=== PATIENT | female | born 1960 | race Caucasian/White ===

== ENCOUNTER → 2017-08-12 | Outpatient (CLI) | payer BC ==
--- NOTE | 2017-08-13 13:25 | MM ---
Reason for exam: screening (asymptomatic). Last mammogram was performed 1 year and 4 months ago. History: Patient is postmenopausal and had first child at age 32. Benign MG stereo VAD BX RT of the right breast, April 16, 2016. Benign US biopsy breast VAD RT of the right breast, April 16, 2016. Cyst aspiration of the right breast, 2002. Ultrasound-guided cyst aspiration of the right breast, October 21, 2002. Cyst aspiration of the left breast, 1999. Benign excisional biopsy of the right breast, 1989. Physical Findings: A clinical breast exam by your physician is recommended on an annual basis and results should be correlated with mammographic findings. MG Screening Mammo w CAD Bilateral CC and MLO view(s) were taken. Prior study comparison: April 05, 2016, right breast MG work up mamm w CAD RT. April 02, 2016, bilateral MG screening mammo w CAD. Previous mammotome biopsy in the right breast x 2. There is chronic nodularity bilaterally. No significant changes when compared with prior studies. ASSESSMENT: Benign, BI-RAD 2 RECOMMENDATION: Routine screening mammogram of both breasts in 1 year.
== END | disposition home or self-care (01) ==
LOC: RADMAMWWP 08:46
PROVIDERS: ATTEND Obstetrics & Gynecology
DX: Z12.31 Encounter for screening mammogram for malignant neoplasm of breast (principal)

== ENCOUNTER → 2018-08-21 | Outpatient (CLI) | payer BC ==
--- NOTE | 2018-08-25 09:47 | MM ---
Reason for exam: screening (asymptomatic). Last mammogram was performed 1 year ago. History: Patient is postmenopausal and had first child at age 32. Benign MG stereo VAD BX RT of the right breast, April 16, 2016. Benign US biopsy breast VAD RT of the right breast, April 16, 2016. Cyst aspiration of the right breast, 2002. Ultrasound-guided cyst aspiration of the right breast, October 21, 2002. Cyst aspiration of the left breast, 1999. Benign excisional biopsy of the right breast, 1989. Physical Findings: A clinical breast exam by your physician is recommended on an annual basis and results should be correlated with mammographic findings. MG Screening Mammo w CAD Bilateral CC and MLO view(s) were taken. XCCL view(s) were taken of the left breast. Prior study comparison: August 12, 2017, bilateral MG screening mammo w CAD. April 05, 2016, right breast MG work up mamm w CAD RT. There are scattered fibroglandular densities. Finding: There are typically benign course calcifications in the left breast. Previous mammotome biopsy in the right breast. No significant changes in finding since August 12, 2017 and April 05, 2016. ASSESSMENT: Benign, BI-RAD 2 RECOMMENDATION: Routine screening mammogram of both breasts in 1 year.
== END | disposition home or self-care (01) ==
LOC: RADMAMWWP 09:33
PROVIDERS: ATTEND Obstetrics & Gynecology
DX: Z12.31 Encounter for screening mammogram for malignant neoplasm of breast (principal)
CPT/HCPCS: 77067

== ENCOUNTER → 2018-11-10 | Outpatient (CLI) | payer BC ==
--- NOTE | 2018-11-10 22:54 | MR ---
EXAMINATION TYPE: MR knee LT wo con DATE OF EXAM: 11/10/2018 COMPARISON: Outside left knee x-ray October 28, 2018 HISTORY: Pain in left knee per order. In her knee pain and swelling for 2 months TECHNIQUE: Multiplanar, multisequence images of the knee is performed without IV contrast. FINDINGS: MEDIAL MENISCUS: Oblique signal posterior horn of medial meniscus appears to extend to articular surf rosangela. Globular increased signal anterior horn is present that does not distinctly extend to articular surface. LATERAL MENISCUS: Anterior and posterior horns are intact without tear. CRUCIATE LIGAMENTS: The anterior and posterior cruciate ligaments are intact and unremarkable. COLLATERAL LIGAMENTS: The medial collateral ligament and lateral collateral ligament complex are inta ct and unremarkable. EXTENSOR MECHANISM: Visualized quadriceps and patellar tendons are intact. EFFUSION: There is small suprapatellar joint effusion. POPLITEAL CYST: No popliteal/pham cyst. TRICOMPARTMENT SPACES: Mild to moderate narrowing patellofemoral and medial tibiofemoral compartment is identified. Mild to moderate tricompartment spurring is seen. There is mild narrowing lateral tibi ofemoral compartment. CARTILAGE: Chondromalacia patella with thinning of articular cartilage along posterior patellar pole is present. There is more prominent cartilaginous loss medial tibiofemoral compartment. BONE MARROW SIGNAL: Small focus of T2 hyperintensity near cartilaginous loss posterior patellar colle ction image 14 is appreciated. OTHER: There is superficial infrapatellar fluid. IMPRESSION: 1. Oblique full-thickness tear posterior horn medial meniscus. 2. Fairly moderate tricompartment degenerative changes most prominent patellofemoral and medial tibio femoral compartments as detailed above. 3. Small suprapatellar joint effusion.
== END | disposition home or self-care (01) ==
LOC: RADMRIMAIN 20:56
PROVIDERS: ATTEND Orthopaedic Surgery
DX: S83.242A Other tear of medial meniscus, current injury, left knee, initial encounter (principal); M17.12 Unilateral primary osteoarthritis, left knee

== ENCOUNTER → 2018-12-04 | Outpatient (CLI) | payer BC ==
[2018-12-04 12:48] LABS: Basophils % (A) 0 %; Eosinophils # (A) 0.2 k/uL (0-0.7); Eosinophils % (A) 3 %; HCT 41.5 % (34.0-46.0); HGB 14.7 gm/dL (11.4-16.0); Lymphocytes # (A) 1.4 k/uL (1.0-4.8); Lymphocytes % (A) 27 %; MCH 31.4 pg (25.0-35.0); MCHC 35.4 g/dL (31.0-37.0); MCV 88.7 fL (80.0-100.0); Mean Platelet Volume 7.6; Monocytes # (A) 0.4 k/uL (0-1.0); Monocytes % (A) 7 %; Neutrophils # (A) 3.1 k/uL (1.3-7.7); Neutrophils % (A) 61 %; Platelet Count 213 k/uL (150-450); RBC 4.68 m/uL (3.80-5.40); RDW 13.4 % (11.5-15.5); WBC 5.2 k/uL (3.8-10.6)
[2018-12-04 13:01] LABS: Potassium 4.6 mmol/L (3.5-5.1)
== END ==
LOC: LABPAT 11:31
PROVIDERS: ATTEND Orthopaedic Surgery
DX: Z01.818 Encounter for other preprocedural examination (principal); Z01.812 Encounter for preprocedural laboratory examination; M23.92 Unspecified internal derangement of left knee
CPT/HCPCS: 36415; 80051; 85025; 93005

== ENCOUNTER 2018-12-18 13:17 | Day surgery (SDC) | payer BC ==
[2018-12-17 11:44] VITALS: BMI 35.2
--- NOTE | 2018-12-17 17:52 | HP ---
HISTORY AND PHYSICAL DATE OF SURGERY: 12/18/2018 Domi Perrin is a 58-year-old patient seen with progressive left knee pain. Treatment options were discussed with her. She elected to proceed with left knee arthroscopy. Consent regarding the procedure was obtained. PAST MEDICAL HISTORY: Noncontributory. PAST SURGICAL HISTORY: Breast biopsy. DAILY MEDICATIONS: Vitamins. ALLERGIES: NONE REPORTED. SOCIAL HISTORY: She denies tobacco use. PHYSICAL EVALUATION OF THE LEFT KNEE: Range of motion is 0 to 120 degrees. There is tenderness along the medial joint line. Positive medial Ce's. Ligaments are stable. Hip rotation without pain. Distal neurovascular exam is intact. RADIOGRAPHS: Radiographs of the left knee revealed mild medial, mild lateral, and moderate patellofemoral compartment osteoarthritis. A left knee MRI revealed a medial meniscal tear and osteoarthritic changes. IMPRESSION: Internal derangement of the left knee with medial meniscal tear. PLAN: Left knee arthroscopy with partial meniscectomy and debridement. MMODL / IJN: [id number] /
[~2018-12-18 13:17] MED LIST: DEXAMETHASONE SOD PHOSPHATE 10 MG/ML 1 ML VIAL IV ONE; HYDROmorphone 0.5 MG/0.5 ML SYRINGE IVP PRN; LACTATED RINGERS 1,000 ML IV SCH; LIDOCAINE 1% 20 ML VIAL (10MG/ML) FOR IV START INTRADERMA PRN; MIDAZOLAM 2 MG/2 ML VIAL IV PRN; ONDANSETRON 4 MG/2 ML VIAL IVP ONE; SCOPOLAMINE 1.5MG/72HR PATCH TRANSDERM ONE; ceFAZolin IN SWFI 2 GM/20 ML SYRINGE IVP ONE
[2018-12-18] MEDS ORDERED: PROPOFOL 10 MG/ML 20 ML VIAL IV ONE (16:22)
[2018-12-18] MEDS ORDERED: LIDOCAINE 1% INJ 10MG/ML (20 ML MDV) ONE (16:22)
[2018-12-18] MEDS ORDERED: fentaNYL (PF) 50 MCG/ML 2 ML AMP ONE (16:22)
[2018-12-18] MEDS ORDERED: BUPIVACAIN-EPI 0.25%-1:200,000 30 ML VIAL SQ ONE (16:46)
[2018-12-18 17:10] VITALS: TEMP 97.7
--- NOTE | 2018-12-18 17:11 | P.OP ---
Date of Procedure: 12/18/18 Preoperative Diagnosis: Internal derangement left knee Postoperative Diagnosis: 1. Tear medial meniscus left knee 2. Grade 2 chondromalacia medial femoral condyle left knee 3. Reactive synovitis medial, lateral and suprapatellar compartments left knee Procedure(s) Performed: 1. Arthroscopic partial medial meniscectomy left knee 2. Arthroscopic chondroplasty medial femoral condyle left knee 3. Arthroscopic partial synovectomy medial, lateral and suprapatellar compartments left knee Anesthesia: GETA, local Surgeon: Benjamin Barbosa Estimated Blood Loss (ml): 3 Pathology: none sent Condition: stable Disposition: PACU Indications for Procedure: 58-year-old patient seen with progressive left knee pain. After discussing treatment options, she elected to proceed with arthroscopy. Operative Findings: See description of procedure Description of Procedure: Patient was taken to the operative suite. Patient underwent a general anesthetic by the department of anesthesia. Patient was given preoperative antibiotics. The left lower extremity was placed in a well-padded arthroscopic leg tinoco. The left leg was prepped and draped in the normal sterile orthopedic fashion. A lateral parapatellar and suprapatellar incision was made. Trochars were inserted. Arthroscopy was initiated. Suprapatellar pouch revealed diffuse thick reactive synovitis. The patellofemoral joint appeared to articulate congruently. There was grade 1 chondromalacia with no osteochondral tears present. The scope was guided into the medial gutter. No loose bodies or plica were identified. The scope was then guided into the medial compartment. A medial parapatellar incision was made. Trocar inserted followed by probe. There was a complex tear involving the mid body and posterior horn of the medial meniscus. There were grade 2 chondromalacia changes of the medial femoral condyle with osteochondral tears present. There was reactive synovitis anteriorly. I performed a partial medial meniscectomy down to stable tissue. I performed a chondroplasty of the medial femoral condyle down to stable tissue. I performed a partial synovectomy decompressing the reactive synovitis. The residual meniscus was stable. The residual osteochondral surface was stable. There was good decompression of the synovitis. Scope and probe were then guided into the intercondylar notch. Cruciates were identified, probed and found to be stable. The scope and probe were then guided into lateral compartment. Lateral meniscus reveals some mild fraying of the mid body. There was no significant chondromalacia. There was reactive synovitis anteriorly. With a motorized shaver and debrided that mild superficial fraying of the lateral meniscus. I now performed a partial synovectomy of lateral compartment decompressing the reactive synovitis. The scope was in guided back into the suprapatellar compartment. I introduced a motorized shaver into the super patellar compartment. I debrided some piecemeal fragments of meniscus I encountered. I performed a partial synovectomy decompressing the synovitis. The shaver was removed. I took one more look on the entire knee, no residual debris. Instruments were now removed from the joint. The joint was infiltrated with .25% Marcaine. Steri-Strips were applied to the portal sites. Sterile dressings were applied. The patient was placed into a BECK hose. No tourniquet was utilized. The patient was awakened, transferred to a bed and taken to recovery stable satisfactory condition.
[2018-12-18] MEDS ORDERED: KETOROLAC 30 MG/ML 1 ML VIAL IVP ONE (17:41)
[2018-12-18] MEDS ORDERED: HYDROcodone/APAP 5-325MG 1 EACH TAB PO ONE (18:24)
[2018-12-18 18:50] VITALS: PULSE 104; RESP 18
[2018-12-18 19:09] VITALS: BP 153/89
[2018-12-18] MEDS ORDERED: LACTATED RINGERS 1,000 ML IV ONE (19:40)
== END 2018-12-18 19:45 | disposition home or self-care (01) ==
LOC: OR 13:17
PROVIDERS: ATTEND Orthopaedic Surgery
DX: S83.242A Other tear of medial meniscus, current injury, left knee, initial encounter (principal); X58.XXXA Exposure to other specified factors, initial encounter; M94.262 Chondromalacia, left knee; M65.862 Other synovitis and tenosynovitis, left lower leg; F41.9 Anxiety disorder, unspecified; Z79.1 Long term (current) use of non-steroidal anti-inflammatories (NSAID); Z79.899 Other long term (current) drug therapy
CPT/HCPCS: 29881; J1100; J2405; J2001; J3010; J1885; J2704; J1170; J0690

== ENCOUNTER → 2019-04-01 | Outpatient (CLI) | payer BC ==
--- NOTE | 2019-04-01 15:10 | MR ---
EXAMINATION TYPE: MR knee RT wo con DATE OF EXAM: 04/01/2019 COMPARISON: Outside radiographs 03/25/2019 HISTORY: 59-year-old female with right KNEE PAIN TECHNIQUE: Multiplanar, multisequence imaging of the right knee is performed without IV contrast. FINDINGS: ACL, PCL, MCL, and LCL complex appear intact. There is some fluid seen along the popliteus tendon she ath. Lateral meniscus is intact. Overall lateral compartment articular cartilage volume is maintained. Mar ginal spurring is present in the lateral compartment. There is a tear extending throughout the posterior horn and body to the junction with the anterior ho rn of the medial meniscus. Mild extrusion of the medial meniscal body. There is moderate to severe di ffuse cartilage loss along the mid and anterior portion of the medial compartment with marginal spurr ing. Marginal spurring in the patellofemoral compartment. There is moderate cartilage thinning along the m edial patellar facet but with overall preserved trochlear articular cartilage volume. Extensor mechanism is intact. Trace effusion within the deep infrapatellar bursa. A [id number] knee joint effusion is present. No significant Rodarte's cyst. Normal popliteal artery anatomy and muscle bulk. No suspicious bone marrow placement. IMPRESSION: 1. Torn posterior horn and body of the medial meniscus with tear extending to the junction with the a nterior horn. 2. Moderate to severe medial compartment osteoarthrosis with cartilage loss along the mid and anterio r aspect of the joint. 3. Cartilage thinning along the medial patellar facet but maintained articular cartilage elsewhere in the patellofemoral compartment. 4. [id number] knee joint effusion.
== END ==
LOC: RADMRIMAIN 12:04
PROVIDERS: ATTEND Orthopaedic Surgery
DX: M25.561 Pain in right knee (principal)

== ENCOUNTER → 2019-04-07 | Outpatient (CLI) | payer BC ==
[2019-04-07 15:42] LABS: Potassium 4.2 mmol/L (3.5-5.1)
[2019-04-07 15:43] LABS: Basophils % (A) 1 %; Eosinophils # (A) 0.1 k/uL (0-0.7); Eosinophils % (A) 2 %; HCT 42.2 % (34.0-46.0); HGB 14.2 gm/dL (11.4-16.0); Lymphocytes # (A) 1.5 k/uL (1.0-4.8); Lymphocytes % (A) 27 %; MCH 29.9 pg (25.0-35.0); MCHC 33.6 g/dL (31.0-37.0); Monocytes # (A) 0.4 k/uL (0-1.0); Monocytes % (A) 7 %; Neutrophils # (A) 3.5 k/uL (1.3-7.7); Neutrophils % (A) 61 %; Platelet Count 246 k/uL (150-450); RBC 4.74 m/uL (3.80-5.40); RDW 13.9 % (11.5-15.5); WBC 5.7 k/uL (3.8-10.6)
== END | disposition home or self-care (01) ==
LOC: LABPAT 14:53
PROVIDERS: ATTEND Orthopaedic Surgery
DX: Z01.812 Encounter for preprocedural laboratory examination (principal); M23.91 Unspecified internal derangement of right knee
CPT/HCPCS: 36415; 80051; 85025

== ENCOUNTER 2019-04-22 10:04 | Day surgery (SDC) | payer BC ==
[2019-04-16 12:31] VITALS: BMI 34.3
--- NOTE | 2019-04-21 14:56 | HP ---
HISTORY AND PHYSICAL DATE OF SURGERY: 04/22/2019. Domi Perrin is a 59-year-old patient seen with progressive right knee pain. We discussed treatment options. She elected to proceed with arthroscopy. Consent was obtained. PAST MEDICAL HISTORY: Noncontributory. PAST SURGICAL HISTORY: Breast biopsy, left knee arthroscopy. MEDICATIONS: 1. Mobic. 2. Multivitamin. 3. Nystatin. ALLERGIES: None. SOCIAL HISTORY: She denies current tobacco use. PHYSICAL EVALUATION OF THE RIGHT KNEE: Range of motion is 0 to 120 degrees. Mild effusion. Tenderness medial joint line. Positive medial Ce's. Ligaments stable. Hip rotation without pain. Distal neurovascular exam intact. RIGHT KNEE RADIOGRAPHS: Revealed moderate medial and moderate patellofemoral compartment osteoarthritis. MRI of the right knee revealed a medial meniscal tear and osteoarthritic changes. IMPRESSION: Internal derangement, right knee with medial meniscal tear. PLAN: Right knee arthroscopy with partial meniscectomy and debridement. MMODL / IJN: [id number] /
[~2019-04-22 10:04] MED LIST changes: -HYDROmorphone 0.5 MG/0.5 ML SYRINGE IVP PRN; +KETOROLAC 30 MG/ML 1 ML VIAL IVP SCH; -LACTATED RINGERS 1,000 ML IV SCH; +METOCLOPRAMIDE 5 MG/ML 2 ML VIAL IVP PRN; -MIDAZOLAM 2 MG/2 ML VIAL IV PRN; -ONDANSETRON 4 MG/2 ML VIAL IVP ONE; +ONDANSETRON 4 MG/2 ML VIAL IVP PRN
[2019-04-22] MEDS: LACTATED RINGERS 1,000 ML IV SCH ×2 (10:43→11:37)
[2019-04-22] MEDS ORDERED: PROPOFOL 10 MG/ML 20 ML VIAL IV ONE (11:35)
[2019-04-22] MEDS ORDERED: LIDOCAINE 1% INJ 10MG/ML (20 ML MDV) ONE (11:35)
[2019-04-22] MEDS ORDERED: fentaNYL (PF) 50 MCG/ML 2 ML AMP ONE (11:35)
[2019-04-22] MEDS ORDERED: MIDAZOLAM 2 MG/2 ML VIAL ONE (11:35)
[2019-04-22] MEDS ORDERED: BUPIVACAINE (PF) 0.25% 30 ML VIAL SQ ONE (11:57)
--- NOTE | 2019-04-22 12:30 | P.OP ---
Date of Procedure: 04/22/19 Preoperative Diagnosis: Internal derangement right knee Postoperative Diagnosis: 1. Tear medial meniscus right knee 2. Grade 3/4 chondromalacia medial femoral condyle right knee 3. Grade 2 chondromalacia lateral femoral condyle right knee 4. Grade 2 chondromalacia patella right knee 5. Reactive synovitis medial, lateral and suprapatellar compartments right knee Procedure(s) Performed: 1. Arthroscopic partial medial meniscectomy right knee 2. Arthroscopic chondroplasty medial femoral condyle right knee 3. Arthroscopic chondroplasty lateral femoral condyle right knee 4. Arthroscopic chondroplasty patella right knee 5. Arthroscopic partial synovectomy medial, lateral and suprapatellar compartments right knee Anesthesia: GETA, local Surgeon: Benjamin Barbosa Estimated Blood Loss (ml): 3 Pathology: none sent Condition: stable Disposition: PACU Indications for Procedure: 59-year-old patient seen with progressive right knee pain. After having treatment options discussed, she elected to proceed with arthroscopy. Operative Findings: See description of procedure Description of Procedure: Patient was taken to the operative suite. Patient underwent a general anesthetic by the department of anesthesia. Patient was given preoperative antibiotics. The right lower extremity was placed in a well-padded arthroscopic leg tinoco. The right leg was prepped and draped in the normal sterile orthopedic fashion. A lateral parapatellar and suprapatellar incision was made. Trochars were inserted. Arthroscopy was initiated. Suprapatellar pouch revealed diffuse thick reactive synovitis. The patellofemoral joint appeared to articulate congruently. There as grade 2 chondromalacia of the patella with some small osteochondral tears present.. The scope was guided into the medial gutter. Bodies or plica were identified. The scope was then guided into the medial compartment. A medial parapatellar incision was made. Trocar inserted followed by probe. There was a complex tear involving the mid body and posterior horn of the medial meniscus. There were grade 3/4 chondral moist changes of the medial femoral condyle with some small osteochondral flap tears. There was thick reactive synovitis anteriorly. I performed a partial medial meniscectomy down to stable tissue. I performed a chondroplasty of the medial femoral condyle down to stable tissue. I performed a partial synovectomy. There was good decompression of synovitis. The residual meniscus was stable. The residual osteochondral surface was stable. There was some exposed bone noted both on the femoral and tibial side. Scope and probe were then guided into the intercondylar notch. Cruciates were identified, probed and found to be able. The scope and probe were then guided into lateral compartment. To meniscus was probed and found to be stable. There was an area of grade 2 chondromalacia central weightbearing surface lateral femoral condyle with osteochondral flap tears. There was thick reactive synovitis anteriorly. I performed a chondroplasty of the lateral femoral condyle down to stable tissue. I performed a partial synovectomy decompressing thick reactive synovitis. The residual osteochondral surface was stable. There was good decompression of the synovitis. The scope was in guided back into the suprapatellar compartment. I introduced a motorized shaver into the super patellar compartment. I debrided piecemeal fragments of meniscus I encountered. I performed a chondroplasty of the patella down to stable tissue. I performed a partial synovectomy decompressing thick reactive synovitis and super patellar compartment. Shaver was removed. I took one more look around the entire knee, no residual debris. Instruments were now removed from the joint. The joint was infiltrated with .25% Marcaine. Steri-Strips were applied to the portal sites. Sterile dressings were applied. The patient was placed into a BECK hose. No tourniquet was utilized. The patient was awakened, transferred to a bed and taken to recovery stable satisfactory condition.
[2019-04-22 12:37] VITALS: TEMP 97
[2019-04-22] MEDS ORDERED: LACTATED RINGERS 1,000 ML IV ONE ×2 (12:55)
[2019-04-22] MEDS: HYDROmorphone 0.5 MG/0.5 ML SYRINGE IVP PRN ×2 (13:02→13:11)
[2019-04-22 14:00] VITALS: RESP 16
[2019-04-22 14:13] VITALS: BP 138/80; PULSE 70
== END 2019-04-22 14:44 | disposition home or self-care (01) ==
LOC: OR 10:04
PROVIDERS: ATTEND Orthopaedic Surgery
DX: S83.241A Other tear of medial meniscus, current injury, right knee, initial encounter (principal); M65.861 Other synovitis and tenosynovitis, right lower leg; M17.11 Unilateral primary osteoarthritis, right knee; M22.41 Chondromalacia patellae, right knee; X58.XXXA Exposure to other specified factors, initial encounter; F39 Unspecified mood [affective] disorder; Z79.899 Other long term (current) drug therapy; Z79.1 Long term (current) use of non-steroidal anti-inflammatories (NSAID)
CPT/HCPCS: 29881; 29876; J2250; J1100; J2405; J2001; J3010; J1885; J2704; J1170; J0690

== ENCOUNTER → 2019-12-07 | Outpatient (CLI) | payer BC ==
--- NOTE | 2019-12-07 09:46 | BD ---
EXAMINATION TYPE: Axial Bone Density DATE OF EXAM: 12/07/2019 COMPARISON: 04/12/2016 CLINICAL HISTORY: M 89.9 Height: 63.7 IN Weight: 214 LBS RISK FACTORS HISTORY OF: Family History of Osteoporosis: YES MOTHER Active: YES Postmenopausal woman: AGE 47 MEDICATIONS: Additional Medications: CALCIUM, MULTI VIT, PAXIL, GLUCOSAMINE CHONDROITIN, VIT C, MELOXICAM, EXAM MEASUREMENTS: Bone mineral densitometry was performed using the [employer] System. Bone mineral density as measured about the Lumbar spine is: ----- L1-L4(G/cm2): 0.987 T Score Values are as follows: ----- L2: -2.7 ----- L3: -1.5 ----- L4: -1.3 ----- L1-L4: -1.6 Bone mineral density has: Decreased -2.3% since study of: 04/12/2016 Bone mineral density about the R hip (g/cm2): 0.892 Bone mineral density about the L hip (g/cm2): 0.875 T Score values are as follows: -----R Neck: -1.1 -----L Neck: -1.2 -----R Total: 0.2 -----L Total: 0.0 Bone mineral density has: Decreased -3.3% since study of: 04/12/2016 IMPRESSION: Osteopenia (T Score between -2.5 and -1). There is slightly increased risk of fracture and the patient may be considered for treatment. Re-Screen 2-5 years. NOTE: T-SCORE=SD OF THE YOUNG ADULT MEAN.
--- NOTE | 2019-12-08 11:16 | MM ---
Reason for exam: screening (asymptomatic). Last mammogram was performed 1 year and 4 months ago. History: Patient is postmenopausal and had first child at age 32. Benign MG stereo VAD BX RT of the right breast, April 16, 2016. Benign US biopsy breast VAD RT of the right breast, April 16, 2016. Cyst aspiration of the right breast, 2002. Ultrasound-guided cyst aspiration of the right breast, October 21, 2002. Cyst aspiration of the left breast, 1999. Benign excisional biopsy of the right breast, 1989. Physical Findings: A clinical breast exam by your physician is recommended on an annual basis and results should be correlated with mammographic findings. MG Screening Mammo w CAD Bilateral CC and MLO view(s) were taken. Prior study comparison: August 21, 2018, bilateral MG screening mammo w CAD. August 12, 2017, bilateral MG screening mammo w CAD. There are scattered fibroglandular densities. Focal asymmetry upper outer left breast middle third position. This finding is changed when compared with previous exams. ASSESSMENT: Incomplete: need additional imaging evaluation, BI-RAD 0 RECOMMENDATION: Special view mammogram of the left breast. If lesion persists on supplemental views, image directed ultrasound is recommended. [facility] will attempt to contact patient to return for supplemental views and ultrasound if indicated.
== END | disposition home or self-care (01) ==
LOC: RADMAMWWP 08:21
PROVIDERS: ATTEND Obstetrics & Gynecology
DX: Z12.31 Encounter for screening mammogram for malignant neoplasm of breast (principal); M85.88 Other specified disorders of bone density and structure, other site
CPT/HCPCS: 77067; 77080

== ENCOUNTER → 2019-12-18 | Outpatient (CLI) | payer BC ==
--- NOTE | 2019-12-18 10:59 | MM ---
Reason for exam: additional evaluation requested from abnormal screening. Last mammogram was performed less than 1 month ago. History: Patient is postmenopausal and had first child at age 32. Benign MG stereo VAD BX RT of the right breast, April 16, 2016. Benign US biopsy breast VAD RT of the right breast, April 16, 2016. Cyst aspiration of the right breast, 2002. Ultrasound-guided cyst aspiration of the right breast, October 21, 2002. Cyst aspiration of the left breast, 1999. Benign excisional biopsy of the right breast, 1989. Physical Findings: Nurse did not find any significant physical abnormalities on exam. MG Work Up Mamm w CAD LT Spot compression CC, spot compression MLO, and LM view(s) were taken of the left breast. Prior study comparison: December 07, 2019, bilateral MG screening mammo w CAD. August 21, 2018, bilateral MG screening mammo w CAD. There are scattered fibroglandular densities. No distinct new lesion at area of concern, stable. These results were verbally communicated with the patient and result sheet given to the patient on 12/18/19. ASSESSMENT: Benign, BI-RAD 2 RECOMMENDATION: Return to routine screening mammogram schedule for both breasts.
== END | disposition home or self-care (01) ==
LOC: RADMAMWWP 10:12
PROVIDERS: ATTEND Obstetrics & Gynecology
DX: R92.8 Other abnormal and inconclusive findings on diagnostic imaging of breast (principal)
CPT/HCPCS: 77065

== ENCOUNTER → 2021-06-06 | Outpatient (CLI) | payer BC ==
--- NOTE | 2021-06-07 07:28 | XR ---
EXAMINATION TYPE: XR chest 2V DATE OF EXAM: 06/06/2021 COMPARISON: NONE HISTORY: Cough TECHNIQUE: Frontal and lateral views of the chest are obtained. FINDINGS: There is no focal air space opacity, pleural effusion, or pneumothorax seen. The cardiac silhouette size is within normal limits. The osseous structures are intact. IMPRESSION: No acute cardiopulmonary process.
== END | disposition home or self-care (01) ==
LOC: RADXRMAIN 16:02
PROVIDERS: ATTEND Family Medicine
DX: R05 Cough (principal)
CPT/HCPCS: 71046

== ENCOUNTER 2021-06-08 20:02 | Emergency (ER) | payer BC ==
[2021-06-08 20:14] VITALS: TEMP 99.3
[2021-06-08] MEDS ORDERED: SODIUM CHLORIDE 0.9% 1,000 ML IV STA (20:41)
[2021-06-08 21:28] LABS: INR 1.1 (<1.2); Partial Thromboplastin Time 20.4 sec (22.0-30.0); Prothrombin Time 11.7 sec (9.0-12.0)
[2021-06-08 21:31] LABS: Albumin 3.9 g/dL (3.5-5.0); Calcium 8.7 mg/dL (8.4-10.2); Total Bilirubin 0.3 mg/dL (0.2-1.3); Total Protein 7.8 g/dL (6.3-8.2)
[2021-06-08 21:42] LABS: Anisocytosis Slight; HCT 21.1 % (34.0-46.0); HGB 7.3 gm/dL (11.4-16.0); MCH 36.8 pg (25.0-35.0); MCHC 34.8 g/dL (31.0-37.0); MCV 105.7 fL (80.0-100.0); Macrocytosis Moderate; Mean Platelet Volume 11.2; RBC 1.99 m/uL (3.80-5.40); RDW 17.5 % (11.5-15.5); WBC 14.7 k/uL (3.8-10.6)
[2021-06-08 22:15] LABS: Lymphocytes # (M) 3.53 k/uL (1.0-4.8); Monocytes # (M) 3.23 k/uL (0-1.0); Neutrophils # (M) 7.94 k/uL (1.3-7.7); Neutrophils % (M) 54 %; Nucleated Red Blood Cells 0 /100 WBC (0-0); Total Cells Counted 100
--- NOTE | 2021-06-08 22:15 | ED ---
General Adult HPI - General Chief complaint: Shortness of Breath Stated complaint: Abnormal labs Time Seen by Provider: 06/08/21 20:27 Source: patient, RN notes reviewed Mode of arrival: ambulatory Limitations: no limitations - History of Present Illness Initial comments: Patient is a 61-year-old female that presents to emergency department complaining of fatigue and not feeling well for the last several weeks. She notes that she recently got lumbar done through her PCP and was told to come here for evaluation. Her PCP states that her hemoglobin was low and that they wanted her to get a full workup to test for any bleeding or internal issues. Rito flynn was a well-appearing 61-year-old female who states she was in no pain or discomfort while sitting up during the exam interview. She denied any hematochezia melena or hematemesis history of abdominal issues or family history of abdominal issues. She notes that she is still eating and drinking well with no issue. She denied any chest pain shortness of breath headache nausea vomiting diarrhea constipation fever fatigue chills. - Related Data Home Medications Medication Instructions Recorded Confirmed Ascorbic Acid [Vitamin C] 500 mg PO DAILY 12/17/18 06/08/21 PARoxetine [Paxil] 10 mg PO DAILY 12/17/18 06/08/21 Docusate [Colace] 100 mg PO DAILY PRN 06/08/21 06/08/21 Doxycycline Hyclate 100 mg PO BID 06/08/21 06/08/21 Fluticasone Nasal [place] [Flonase 1 spray EA NOSTRIL DAILY 06/08/21 06/08/21 Nasal [place]] L.acidoph,Paracasei, B.lactis 1 cap PO DAILY 06/08/21 06/08/21 [Probiotic] methylPREDNISolone [Medrol Dose See Taper PO DIRECTED 06/08/21 06/08/21 Pack] Allergies Allergy/AdvReac Type Severity Reaction Status Date / Time No Known Allergies Allergy Verified 06/08/21 21:28 Review of Systems ROS Statement: Those systems with pertinent positive or pertinent negative responses have been documented in the HPI. ROS Other: All systems not noted in ROS Statement are negative. Past Medical History Past Medical History: Osteoarthritis (OA) History of Any Multi-Drug Resistant Organisms: None Reported Past Surgical History: Breast Surgery, Orthopedic Surgery Additional Past Surgical History / Comment(s): breast biopsy, arthroscopy left and right knee Past Anesthesia/Blood Transfusion Reactions: No Reported Reaction Past Psychological History: Anxiety Smoking Status: Never smoker Past Alcohol Use History: None Reported Past Drug Use History: None Reported - Past Family History Father Family Medical History: Cancer General Exam Limitations: no limitations General appearance: alert, in no apparent distress Head exam: Present: atraumatic, normocephalic, normal inspection Eye exam: Present: normal appearance, PERRL, EOMI. Absent: scleral icterus, conjunctival injection, periorbital swelling Neck exam: Present: normal inspection. Absent: lymphadenopathy Respiratory exam: Present: normal lung sounds bilaterally. Absent: respiratory distress, wheezes, rales, rhonchi, stridor Cardiovascular Exam: Present: regular rate, normal rhythm, normal heart sounds. Absent: systolic murmur, diastolic murmur, rubs, gallop, clicks GI/Abdominal exam: Present: soft, normal bowel sounds. Absent: distended, tenderness, guarding, rebound, rigid Extremities exam: Present: normal inspection, full ROM, normal capillary refill. Absent: tenderness, pedal edema, joint swelling, calf tenderness Neurological exam: Present: alert, oriented X3 Psychiatric exam: Present: normal affect, normal mood Skin exam: Present: warm, dry, intact, normal color. Absent: rash Course Vital Signs 06/08/21 06/08/21 06/08/21 20:10 20:37 23:19 Temperature 99.3 F Pulse Rate 56 L 110 H 104 H Respiratory 18 20 18 Rate Blood Pressure 137/73 138/87 134/70 O2 Sat by Pulse 96 98 94 L Oximetry EKG Findings - EKG Comments: EKG Findings:: Ventricular rate 113 bpm, CO interval 172 ms, QRS duration 70 ms, QTC 452 ms, PRT axes 46/26/47. Sinus tachycardia, otherwise normal ECG. Medical Decision Making - Medical Decision Making 61-year-old female sent in by primary care for abnormal labs. Labs, 1 L normal saline, CT of the abdomen and pelvis ordered. Labs: White blood cells 14.7, red blood cells 1.9 hemoglobin 7.3 hematocrit 21.1 lactic acid 2.2 lipase 332 rest of labs unremarkable. Computed tomography scan negative for any acute process. Case discussed with Dr. Salazar, patient discharge home with follow-up primary care and varnish maker helper. - Lab Data Result diagrams: 06/08/21 20:46 06/08/21 20:46 Lab Results 06/08/21 06/08/21 06/08/21 Range/Units 20:46 20:46 20:46 WBC 14.7 H (3.8-10.6) k/uL RBC 1.99 L (3.80-5.40) m/uL Hgb 7.3 L (11.4-16.0) gm/dL Hct 21.1 L (34.0-46.0) % MCV 105.7 H (80.0-100.0) fL MCH 36.8 H (25.0-35.0) pg MCHC 34.8 (31.0-37.0) g/dL RDW 17.5 H (11.5-15.5) % Plt Count 58 L (150-450) k/uL MPV 11.2 Neutrophils % (Manual) 54 % Lymphocytes % (Manual) 24 % Monocytes % (Manual) 22 % Neutrophils # (Manual) 7.94 H (1.3-7.7) k/uL Lymphocytes # (Manual) 3.53 (1.0-4.8) k/uL Monocytes # (Manual) 3.23 H (0-1.0) k/uL Nucleated RBCs 0 (0-0) /100 WBC Polychromasia Present Anisocytosis Slight Anisocytosis (manual) Present Macrocytosis Moderate PT 11.7 (9.0-12.0) sec INR 1.1 (<1.2) APTT 20.4 L (22.0-30.0) sec Sodium (137-145) mmol/L Potassium (3.5-5.1) mmol/L Chloride (98-107) mmol/L Carbon Dioxide (22-30) mmol/L Anion Gap mmol/L BUN (7-17) mg/dL Creatinine (0.52-1.04) mg/dL Est GFR (CKD-EPI)AfAm (>60 ml/min/1.73 sqM) Est GFR (CKD-EPI)NonAf (>60 ml/min/1.73 sqM) Glucose (74-99) mg/dL Lactic Ac Sepsis Rflx Plasma Lactic Acid Joel (0.7-2.0) mmol/L Calcium (8.4-10.2) mg/dL Total Bilirubin (0.2-1.3) mg/dL AST (14-36) U/L ALT (4-34) U/L Alkaline Phosphatase (38-126) U/L Troponin I (0.000-0.034) ng/mL Total Protein (6.3-8.2) g/dL Albumin (3.5-5.0) g/dL Amylase (30-110) U/L Lipase (23-300) U/L Urine Color Light Yellow Urine Appearance Clear (Clear) Urine pH 6.0 (5.0-8.0) Ur Specific [place] 1.004 (1.001-1.035) Urine Protein Negative (Negative) Urine Glucose (UA) Negative (Negative) Urine Ketones Negative (Negative) Urine Blood Negative (Negative) Urine Nitrite Negative (Negative) Urine Bilirubin Negative (Negative) Urine Urobilinogen <2.0 (<2.0) mg/dL Ur Leukocyte Esterase Negative (Negative) Blood Type Blood Type Confirm Blood Type Recheck Bld Type Recheck Status Antibody Screen Spec Expiration Date 06/08/21 06/08/21 06/08/21 Range/Units 20:46 20:46 20:46 WBC (3.8-10.6) k/uL RBC (3.80-5.40) m/uL Hgb (11.4-16.0) gm/dL Hct (34.0-46.0) % MCV (80.0-100.0) fL MCH (25.0-35.0) pg MCHC (31.0-37.0) g/dL RDW (11.5-15.5) % Plt Count (150-450) k/uL MPV Neutrophils % (Manual) % Lymphocytes % (Manual) % Monocytes % (Manual) % Neutrophils # (Manual) (1.3-7.7) k/uL Lymphocytes # (Manual) (1.0-4.8) k/uL Monocytes # (Manual) (0-1.0) k/uL Nucleated RBCs (0-0) /100 WBC Polychromasia Anisocytosis Anisocytosis (manual) Macrocytosis PT (9.0-12.0) sec INR (<1.2) APTT (22.0-30.0) sec Sodium 137 (137-145) mmol/L Potassium 4.0 (3.5-5.1) mmol/L Chloride 101 (98-107) mmol/L Carbon Dioxide 27 (22-30) mmol/L Anion Gap 9 mmol/L BUN 17 (7-17) mg/dL Creatinine 0.96 (0.52-1.04) mg/dL Est GFR (CKD-EPI)AfAm 74 (>60 ml/min/1.73 sqM) Est GFR (CKD-EPI)NonAf 65 (>60 ml/min/1.73 sqM) Glucose 181 H (74-99) mg/dL Lactic Ac Sepsis Rflx Plasma Lactic Acid Joel 2.2 H* (0.7-2.0) mmol/L Calcium 8.7 (8.4-10.2) mg/dL Total Bilirubin 0.3 (0.2-1.3) mg/dL AST 43 H (14-36) U/L ALT 24 (4-34) U/L Alkaline Phosphatase 69 (38-126) U/L Troponin I <0.012 (0.000-0.034) ng/mL Total Protein 7.8 (6.3-8.2) g/dL Albumin 3.9 (3.5-5.0) g/dL Amylase 59 (30-110) U/L Lipase 332 H (23-300) U/L Urine Color Urine Appearance (Clear) Urine pH (5.0-8.0) Ur Specific [place] (1.001-1.035) Urine Protein (Negative) Urine Glucose (UA) (Negative) Urine Ketones (Negative) Urine Blood (Negative) Urine Nitrite (Negative) Urine Bilirubin (Negative) Urine Urobilinogen (<2.0) mg/dL Ur Leukocyte Esterase (Negative) Blood Type Blood Type Confirm Blood Type Recheck Bld Type Recheck Status Antibody Screen Spec Expiration Date 06/08/21 06/08/21 06/08/21 Range/Units 20:46 21:40 22:00 WBC (3.8-10.6) k/uL RBC (3.80-5.40) m/uL Hgb (11.4-16.0) gm/dL Hct (34.0-46.0) % MCV (80.0-100.0) fL MCH (25.0-35.0) pg MCHC (31.0-37.0) g/dL RDW (11.5-15.5) % Plt Count (150-450) k/uL MPV Neutrophils % (Manual) % Lymphocytes % (Manual) % Monocytes % (Manual) % Neutrophils # (Manual) (1.3-7.7) k/uL Lymphocytes # (Manual) (1.0-4.8) k/uL Monocytes # (Manual) (0-1.0) k/uL Nucleated RBCs (0-0) /100 WBC Polychromasia Anisocytosis Anisocytosis (manual) Macrocytosis PT (9.0-12.0) sec INR (<1.2) APTT (22.0-30.0) sec Sodium (137-145) mmol/L Potassium (3.5-5.1) mmol/L Chloride (98-107) mmol/L Carbon Dioxide (22-30) mmol/L Anion Gap mmol/L BUN (7-17) mg/dL Creatinine (0.52-1.04) mg/dL Est GFR (CKD-EPI)AfAm (>60 ml/min/1.73 sqM) Est GFR (CKD-EPI)NonAf (>60 ml/min/1.73 sqM) Glucose (74-99) mg/dL Lactic Ac Sepsis Rflx Y Plasma Lactic Acid Joel (0.7-2.0) mmol/L Calcium (8.4-10.2) mg/dL Total Bilirubin (0.2-1.3) mg/dL AST (14-36) U/L ALT (4-34) U/L Alkaline Phosphatase (38-126) U/L Troponin I (0.000-0.034) ng/mL Total Protein (6.3-8.2) g/dL Albumin (3.5-5.0) g/dL Amylase (30-110) U/L Lipase (23-300) U/L Urine Color Urine Appearance (Clear) Urine pH (5.0-8.0) Ur Specific [place] (1.001-1.035) Urine Protein (Negative) Urine Glucose (UA) (Negative) Urine Ketones (Negative) Urine Blood (Negative) Urine Nitrite (Negative) Urine Bilirubin (Negative) Urine Urobilinogen (<2.0) mg/dL Ur Leukocyte Esterase (Negative) Blood Type AB Positive Blood Type Confirm AB Positive Blood Type Recheck No Previous Record Bld Type Recheck Status CABO Indicated Antibody Screen NEGATIVE Spec Expiration Date 06/11/2021 1206 - EKG Data -: EKG Interpreted by Me EKG shows normal: sinus rhythm Rate: normal EKG Comments: Ventricular rate 113 bpm, CO interval 172 ms, QRS duration 70 ms, QTC 452 ms, PRT axes 46/26/47. Sinus tachycardia, otherwise normal ECG. Disposition Clinical Impression: Low hemoglobin, Fatigue, Elevated lipase Disposition: HOME SELF-CARE Condition: Stable Instructions (If sedation given, give patient instructions): Fatigue (ED) Additional Instructions: Please return to the Emergency Department if symptoms worsen or any other c oncerns. Follow-up with primary care. Follow-up with varnish maker helper as soon as possible. Avoid any strenuous activity. Is patient prescribed a controlled substance at d/c from ED?: No Referrals: Kelly Ahuja MD [Primary Care Provider] - 1-2 days Emmanuel Noyola MD [STAFF PHYSICIAN] - 1-2 days Time of Disposition: 23:44
[2021-06-08 22:16] LABS: Anisocytosis (M) Present; Polychromasia Present
[2021-06-08 22:17] LABS: Platelet Count 58 k/uL (150-450)
[2021-06-08 22:25] LABS: Appearance,Urine Clear (Clear); Bilirubin,Urine Negative (Negative); Blood,Urine Negative (Negative); Color,Urine Light Yellow; Glucose,Urine (UA) Negative (Negative); Ketones,Urine Negative (Negative); Leukocyte Esterase,Urine Negative (Negative); Nitrite,Urine Negative (Negative); Protein,Urine Negative (Negative); Specific Gravity,Urine 1.004 (1.001-1.035); Urobilinogen,Urine <2.0 mg/dL (<2.0)
--- NOTE | 2021-06-08 22:57 | CT ---
EXAMINATION TYPE: CT abdomen pelvis w con DATE OF EXAM: 06/08/2021 COMPARISON: None HISTORY: Abnormal labs and fatigue. CT DLP: 1245.7 mGycm Automated exposure control for dose reduction was used. CONTRAST: Performed with IV Contrast, patient injected with 100ml mL of Isovue 300. Lung bases are clear of infiltrate. There is no pleural effusion. Heart size is normal. There is no p ericardial effusion. Liver is intact. The bile ducts are not dilated. Spleen measures 14 cm. Stomach is intact. There is n o pancreatic mass. Gallbladder appears normal. There is no adrenal mass. Kidneys show satisfactory contrast opacification. There is no hydronephrosi s. Delayed images show normal renal excretion. There is no retroperitoneal adenopathy. Appendix appea rs normal. Bladder distends smoothly. There is no inguinal hernia. There is no free fluid in the pelvis. There a re sigmoid diverticula. There is no diverticulitis. Lumbar vertebra have normal alignment. Posterior elements are intact. Bony pelvis is intact. The hip joints are intact. There is no mesenteric edema. There is no ascites or free air. There is no bowel obstruction. IMPRESSION: Negative CT scan abdomen and pelvis. Normal appendix.
[2021-06-08 23:22] VITALS: BP 134/70; PULSE 104; RESP 18
[2021-06-09 21:32] LABS: % Iron Saturation 86.54 (12.00-45.00)
[2021-06-09 22:14] LABS: Folate, Serum 18.4 ng/mL
== END 2021-06-09 00:04 | disposition home or self-care (01) ==
LOC: EC 20:02
DX: D64.9 Anemia, unspecified (principal); R74.8 Abnormal levels of other serum enzymes; M19.90 Unspecified osteoarthritis, unspecified site; F41.9 Anxiety disorder, unspecified; Z79.52 Long term (current) use of systemic steroids; Z79.899 Other long term (current) drug therapy
CPT/HCPCS: 36415; 93005; 86900; 86901; 80053; 82607; 82150; 82746; 83540; 83550; 83605; 83690; 84484; 85025; 85610; 85730; 86850; 81003; 74177; 96360; 99284; Q9967

== ENCOUNTER 2021-06-19 16:25 | Inpatient (IN) | payer BC ==
[2021-06-19] MEDS ORDERED: ACETAMINOPHEN TAB 500 MG TAB PO STA (16:54)
[2021-06-19] MEDS: SODIUM CHLORIDE 0.9% 1,000 ML IV SCH (17:45)
--- NOTE | 2021-06-19 17:51 | ED ---
General Adult HPI - General Chief complaint: Recheck/Abnormal Lab/Rx Stated complaint: lab recheck Time Seen by Provider: 06/19/21 16:27 Source: patient, family, RN notes reviewed Mode of arrival: wheelchair Limitations: no limitations - History of Present Illness Initial comments: Patient is a pleasant 61-year-old female presenting to the emergency department with concerns for her blood levels. Patient did see a practitioner John driver today. She is concerned regarding patient's hemoglobin of 6.9 and platelet count of 40. Patient had temperature in the office of 102. Patient states no fever prior to today. Patient does complain of feeling fatigued for the past several weeks. There may be some mild dyspnea on exertion. Patient does have mild cough. No chest pain. No abdominal pain. No vomiting. No isolated area of weakness. No urinary symptoms. No upper respiratory symptoms except chronic rhinorrhea which is unchanged. - Related Data Home Medications Medication Instructions Recorded Confirmed PARoxetine [Paxil] 10 mg PO DAILY 12/17/18 06/19/21 Multivit-Min/Iron/Folic/Lutein 1 tab PO DAILY 06/19/21 06/19/21 [Centrum Silver Women Tablet] Allergies Allergy/AdvReac Type Severity Reaction Status Date / Time No Known Allergies Allergy Verified 06/19/21 18:05 Review of Systems ROS Statement: Those systems with pertinent positive or pertinent negative responses have been documented in the HPI. ROS Other: All systems not noted in ROS Statement are negative. Constitutional: Reports: as per HPI Eyes: Denies: eye pain ENT: Denies: ear pain Respiratory: Reports: as per HPI Cardiovascular: Denies: chest pain Endocrine: Reports: fatigue Gastrointestinal: Denies: abdominal pain Genitourinary: Denies: dysuria Musculoskeletal: Denies: back pain Skin: Denies: rash Neurological: Denies: weakness Past Medical History Past Medical History: Osteoarthritis (OA) History of Any Multi-Drug Resistant Organisms: None Reported Past Surgical History: Breast Surgery, Orthopedic Surgery Additional Past Surgical History / Comment(s): breast biopsy, arthroscopy left and right knee Past Anesthesia/Blood Transfusion Reactions: No Reported Reaction Past Psychological History: Anxiety Smoking Status: Never smoker Past Alcohol Use History: None Reported Past Drug Use History: None Reported - Past Family History Father Family Medical History: Cancer General Exam Limitations: no limitations General appearance: alert, in no apparent distress Head exam: Present: atraumatic, normocephalic Eye exam: Present: normal appearance Neck exam: Present: normal inspection. Absent: meningismus Respiratory exam: Present: normal lung sounds bilaterally Cardiovascular Exam: Present: tachycardia GI/Abdominal exam: Present: soft. Absent: distended, tenderness Extremities exam: Present: normal inspection. Absent: pedal edema, calf tenderness Back exam: Present: normal inspection Neurological exam: Present: alert Psychiatric exam: Present: normal affect, normal mood Skin exam: Present: normal color Course Vital Signs 06/19/21 06/19/21 06/19/21 16:31 17:18 18:23 Temperature 99.4 F Pulse Rate 128 H 124 H 125 H Respiratory 18 18 18 Rate Blood Pressure 118/80 140/76 121/69 O2 Sat by Pulse 100 97 98 Oximetry - Reevaluation(s) Reevaluation #1: 06/19/21 19:49 There is some concern for sepsis diagnosed at 1950. Blood culture and lactic acid have been ordered. IV antibiotics will be ordered. EKG Findings - EKG Comments: EKG Findings:: History of cardiac 01/23/2021. MS 140. QRS 72. QT 306. QTc 434. Normal axis. Normal QRS. No acute ST change Medical Decision Making - Medical Decision Making Patient reevaluated and resting comfortably in bed. Patient updated on results and plan. Case was discussed with Dr. davidson, covering for Dr. Epstein, who will admit. Hematology will be placed on consult. - Lab Data Result diagrams: 06/19/21 17:31 06/19/21 17:31 Lab Results 06/19/21 06/19/21 06/19/21 Range/Units 17:31 17:31 17:31 WBC 14.5 H (3.8-10.6) k/uL RBC 1.91 L (3.80-5.40) m/uL Hgb 7.2 L (11.4-16.0) gm/dL Hct 20.8 L (34.0-46.0) % MCV 108.9 H (80.0-100.0) fL MCH 37.9 H (25.0-35.0) pg MCHC 34.8 (31.0-37.0) g/dL RDW 18.0 H (11.5-15.5) % Plt Count 59 L (150-450) k/uL MPV 10.5 Neutrophils % (Manual) 34 % Band Neuts % (Manual) 1 % Lymphocytes % (Manual) 30 % Monocytes % (Manual) 33 % Eosinophils % (Manual) 1 % Metamyelocytes % 1 % Promyelocytes % 1 % Neutrophils # (Manual) 5.00 (1.3-7.7) k/uL Lymphocytes # (Manual) 4.35 (1.0-4.8) k/uL Monocytes # (Manual) 4.79 H (0-1.0) k/uL Eosinophils # (Manual) 0.15 (0-0.7) k/uL Metamyelocytes # (Man) 0.15 H (0) k/uL Promyelocytes # (Man) 0.15 H (0) k/uL Nucleated RBCs 0 (0-0) /100 WBC Manual Slide Review Performed Polychromasia Present Anisocytosis Slight Macrocytosis Marked A PT 11.4 (9.0-12.0) sec INR 1.1 (<1.2) APTT 21.1 L (22.0-30.0) sec Sodium (137-145) mmol/L Potassium (3.5-5.1) mmol/L Chloride (98-107) mmol/L Carbon Dioxide (22-30) mmol/L Anion Gap mmol/L BUN (7-17) mg/dL Creatinine (0.52-1.04) mg/dL Est GFR (CKD-EPI)AfAm (>60 ml/min/1.73 sqM) Est GFR (CKD-EPI)NonAf (>60 ml/min/1.73 sqM) Glucose (74-99) mg/dL Plasma Lactic Acid Joel (0.7-2.0) mmol/L Calcium (8.4-10.2) mg/dL Total Bilirubin (0.2-1.3) mg/dL AST (14-36) U/L ALT (4-34) U/L Alkaline Phosphatase (38-126) U/L Creatine Kinase (30-135) U/L Total Protein (6.3-8.2) g/dL Albumin (3.5-5.0) g/dL Urine Color Yellow Urine Appearance Turbid H (Clear) Urine pH 6.0 (5.0-8.0) Ur Specific [place] 1.029 (1.001-1.035) Urine Protein 2+ H (Negative) Urine Glucose (UA) Negative (Negative) Urine Ketones Trace H (Negative) Urine Blood Negative (Negative) Urine Nitrite Negative (Negative) Urine Bilirubin Negative (Negative) Urine Urobilinogen 2.0 (<2.0) mg/dL Ur Leukocyte Esterase Trace H (Negative) Urine RBC 3 (0-5) /hpf Urine WBC 35 H (0-5) /hpf Ur Squamous Epith Cells 1 (0-4) /hpf Calcium Oxalate Crystal Many H (None) /hpf Amorphous Sediment Occasional H (None) /hpf Urine Bacteria Moderate H (None) /hpf Hyaline Casts 59 H (0-2) /lpf Urine Mucus Many H (None) /hpf Coronavirus (PCR) (Not Detectd) 06/19/21 06/19/21 06/19/21 Range/Units 17:31 17:31 17:31 WBC (3.8-10.6) k/uL RBC (3.80-5.40) m/uL Hgb (11.4-16.0) gm/dL Hct (34.0-46.0) % MCV (80.0-100.0) fL MCH (25.0-35.0) pg MCHC (31.0-37.0) g/dL RDW (11.5-15.5) % Plt Count (150-450) k/uL MPV Neutrophils % (Manual) % Band Neuts % (Manual) % Lymphocytes % (Manual) % Monocytes % (Manual) % Eosinophils % (Manual) % Metamyelocytes % % Promyelocytes % % Neutrophils # (Manual) (1.3-7.7) k/uL Lymphocytes # (Manual) (1.0-4.8) k/uL Monocytes # (Manual) (0-1.0) k/uL Eosinophils # (Manual) (0-0.7) k/uL Metamyelocytes # (Man) (0) k/uL Promyelocytes # (Man) (0) k/uL Nucleated RBCs (0-0) /100 WBC Manual Slide Review Polychromasia Anisocytosis Macrocytosis PT (9.0-12.0) sec INR (<1.2) APTT (22.0-30.0) sec Sodium 137 (137-145) mmol/L Potassium 3.9 (3.5-5.1) mmol/L Chloride 100 (98-107) mmol/L Carbon Dioxide 28 (22-30) mmol/L Anion Gap 9 mmol/L BUN 13 (7-17) mg/dL Creatinine 0.90 (0.52-1.04) mg/dL Est GFR (CKD-EPI)AfAm 81 (>60 ml/min/1.73 sqM) Est GFR (CKD-EPI)NonAf 70 (>60 ml/min/1.73 sqM) Glucose 158 H (74-99) mg/dL Plasma Lactic Acid Joel 2.0 (0.7-2.0) mmol/L Calcium 9.3 (8.4-10.2) mg/dL Total Bilirubin 0.6 (0.2-1.3) mg/dL AST 38 H (14-36) U/L ALT 26 (4-34) U/L Alkaline Phosphatase 82 (38-126) U/L Creatine Kinase 23 L (30-135) U/L Total Protein 8.1 (6.3-8.2) g/dL Albumin 4.1 (3.5-5.0) g/dL Urine Color Urine Appearance (Clear) Urine pH (5.0-8.0) Ur Specific [place] (1.001-1.035) Urine Protein (Negative) Urine Glucose (UA) (Negative) Urine Ketones (Negative) Urine Blood (Negative) Urine Nitrite (Negative) Urine Bilirubin (Negative) Urine Urobilinogen (<2.0) mg/dL Ur Leukocyte Esterase (Negative) Urine RBC (0-5) /hpf Urine WBC (0-5) /hpf Ur Squamous Epith Cells (0-4) /hpf Calcium Oxalate Crystal (None) /hpf Amorphous Sediment (None) /hpf Urine Bacteria (None) /hpf Hyaline Casts (0-2) /lpf Urine Mucus (None) /hpf Coronavirus (PCR) Not Detected (Not Detectd) - Radiology Data Radiology results: image reviewed (Chest x-ray shows no acute process) Critical Care Time Critical Care Time: Yes Total Critical Care Time: 32 Disposition Clinical Impression: Fatigue, UTI (urinary tract infection), Sepsis, Anemia, Thrombocytopenia Disposition: ADMITTED IP TO THIS HOSP Condition: Serious Is patient prescribed a controlled substance at d/c from ED?: No Referrals: Kelly Ahuja MD [Primary Care Provider] - 1-2 days Decision Time: 19:50
[2021-06-19 17:55] LABS: Anisocytosis Slight; HCT 20.8 % (34.0-46.0); HGB 7.2 gm/dL (11.4-16.0); MCH 37.9 pg (25.0-35.0); MCHC 34.8 g/dL (31.0-37.0); MCV 108.9 fL (80.0-100.0); Macrocytosis Marked; Mean Platelet Volume 10.5; RBC 1.91 m/uL (3.80-5.40)
[2021-06-19 18:04] LABS: Albumin 4.1 g/dL (3.5-5.0); Calcium 9.3 mg/dL (8.4-10.2); Potassium 3.9 mmol/L (3.5-5.1); Total Bilirubin 0.6 mg/dL (0.2-1.3); Total Protein 8.1 g/dL (6.3-8.2)
[2021-06-19 18:14] LABS: INR 1.1 (<1.2); Prothrombin Time 11.4 sec (9.0-12.0)
[2021-06-19 18:24] LABS: Partial Thromboplastin Time 21.1 sec (22.0-30.0)
--- NOTE | 2021-06-19 18:34 | XR ---
EXAMINATION TYPE: XR chest 2V DATE OF EXAM: 06/19/2021 COMPARISON: 06/06/2021 HISTORY: Cough. Fever. TECHNIQUE: 2 views heart and mediastinum are normal. Lungs are clear. Diaphragm is normal. Bony thorax is intact there a re chest leads. IMPRESSION: Normal chest. No change.
[2021-06-19 19:12] LABS: Band Neutrophils % 1 %; Eosinophils # (M) 0.15 k/uL (0-0.7); Metamyelocytes # (M) 0.15 k/uL (0); Metamyelocytes % 1 %; Neutrophils % (M) 34 %; WBC 14.5 k/uL (3.8-10.6)
[2021-06-19 19:20] LABS: Lymphocytes # (M) 4.35 k/uL (1.0-4.8); Monocytes # (M) 4.79 k/uL (0-1.0); Nucleated Red Blood Cells 0 /100 WBC (0-0); Promyelocytes # (M) 0.15 k/uL (0); Promyelocytes % 1 %; Total Cells Counted 201
[2021-06-19 19:21] LABS: Polychromasia Present
[2021-06-19 19:24] LABS: Platelet Count 59 k/uL (150-450)
[2021-06-19 19:34] LABS: Amorphous Sediment,Urine Occasional /hpf; Appearance,Urine Turbid (Clear); Bacteria,Urine Moderate /hpf; Bilirubin,Urine Negative (Negative); Blood,Urine Negative (Negative); Calcium Oxalate Crystals,Urine Many /hpf; Color,Urine Yellow; Glucose,Urine (UA) Negative (Negative); Hyaline Casts,Urine 59 /lpf (0-2); Ketones,Urine Trace (Negative); Leukocyte Esterase,Urine Trace (Negative); Mucus,Urine Many /hpf; Nitrite,Urine Negative (Negative); Protein,Urine 2+ (Negative); RBC,Urine 3 /hpf (0-5); Specific Gravity,Urine 1.029 (1.001-1.035); Squamous Epithelial Cell,Urine 1 /hpf (0-4); WBC,Urine 35 /hpf (0-5)
[2021-06-19] MEDS ORDERED: NALOXONE 0.4 MG/ML 1 ML VIAL IV PRN (19:54)
[2021-06-19] MEDS: ACETAMINOPHEN TAB 325 MG TAB PO PRN (20:31)
--- NOTE | 2021-06-19 23:48 | P.HPIM ---
History of Present Illness H&P Date: 06/19/21 Patient is a 61-year-old female with a PMH of osteoarthritis who was sent into the emergency room by her refrigerator glazier for abnormal blood work. Patient reports that she was in her usual state of health until late April, early May when she came down with what appeared to be a cold. She reports having a runny nose and a sore throat, which was then followed by lethargy and decreased excess tolerance. Patient reports that her symptoms persisted which prompted her to follow-up with her primary care physician who performed a lumbar puncture and subsequently sent her to the emergency room on 06/08 for further evaluation. The patient was found to have anemia with hemoglobin of 7.3, down from a baseline of 14, and thrombocytopenia with platelets of 58. The patient was discharged with the hematology follow-up. Patient reports persistent lethargy and significantly diminished exercise tolerance, feeling short of breath while performing her ADLs. She also reports having nausea earlier today with 2 episodes of emesis, nonbloody. She was seen at her refrigerator glazier, Dr. Forte's office earlier today. She was noted to be febrile with T-max up to 101 and was advised to go to the emergency room. At time of interview, the patient reports no active complaints. She denied abdominal pain, lower extremity swelling, lower extremity pain. He shouldn't denied any history of cancer or bone marrow issues. She denied urinary complaints or cough. Denied headaches, weakness, numbness, tingling. Denied diarrhea. Laboratory evaluation in the emergency room today revealed similar abnormalities from her last presentation with hemoglobin of 7.2, WBC count 14.5, platelet count 59, d-dimer 1.42, and a abnormal UA. The patient was tachycardic in the emergency room with pulse 128 on presentation, BP 118/80, and SpO2 100% on room air with T-max 99.4F. CT abdomen and pelvis on the previous visit was unremarkable. Chest x-ray in the emergency room performed today was unremarkable. EKG revealed sinus tachycardia 1 21 bpm. Review of systems: Pertinent positives and negatives as discussed in HPI, a complete review of systems was performed and all other systems are negative. Physical examination: General: non toxic, no distress, appears at stated age, obese Derm: no unusual rashes/lesions no unusual ecchymoses, warm, dry Head: atraumatic, normocephalic, symmetric Eyes: EOMI, no lid lag, anicteric sclera, pupils equal round reactive to light ENT: Nose and ears atraumatic, no thrush, no pharyngeal erythema Neck: No thyromegaly, no cervical lymphadenopathy, trachea midline, supple Mouth: no lip lesion, mucus membranes moist Cardiovascular: S1S2 reg, no murmur, positive posterior tibial pulse bilateral, no edema, capillary refill less than 2 seconds Lungs: CTA bilateral, no rhonchi, no rales , no accessory muscle use Abdominal: soft, nontender to palpation, no guarding, no appreciable organomegaly, normal bowel sounds Ext: no gross muscle atrophy, muscle strength 5 out of 5 in all 4 extremities grossly, no contractures, Neuro: CN II-XI grossly intact, light touch intact all 4 extremities, finger to nose within normal limits, Psych: Alert, oriented, appropriate affect Assessment/plan SIRS, without obvious infectious source, possible UTI (though patient denying urinary complaints) -Continue with ceftriaxone for now -IV fluids -Follow blood cultures Macrocytic anemia and thrombocythemia, unclear etiology -B12 and folate levels within normal limits with iron levels elevated on 06/08 -Hematology consulted -Patient may need bone marrow biopsy Hyperglycemia -Check A1c DVT prophylaxis -IPCDs The patient is admitted with an anticipated greater than 2 midnight stay for evaluation of SIRS CODE STATUS:Full Code Discussed with: Patient, Anticipated discharge date: 2-[address]: Home Past Medical History Past Medical History: Osteoarthritis (OA) History of Any Multi-Drug Resistant Organisms: None Reported Past Surgical History: Breast Surgery, Orthopedic Surgery Additional Past Surgical History / Comment(s): breast biopsy, arthroscopy left and right knee Past Anesthesia/Blood Transfusion Reactions: No Reported Reaction Past Psychological History: Anxiety Smoking Status: Never smoker Past Alcohol Use History: None Reported Past Drug Use History: None Reported - Past Family History Father Family Medical History: Cancer Mother Family Medical History: Diabetes Mellitus Medications and Allergies Home Medications Medication Instructions Recorded Confirmed Type PARoxetine [Paxil] 10 mg PO DAILY 12/17/18 06/19/21 History Multivit-Min/Iron/Folic/Lutein 1 tab PO DAILY 06/19/21 06/19/21 History [Centrum Silver Women Tablet] Allergies Allergy/AdvReac Type Severity Reaction Status Date / Time No Known Allergies Allergy Verified 06/19/21 18:05 Physical Exam Vitals: Vital Signs Temp Pulse Resp BP Pulse Ox 06/19/21 18:23 125 H 18 121/69 98 06/19/21 17:18 124 H 18 140/76 97 06/19/21 16:31 99.4 F 128 H 18 118/80 100 Intake and Output 06/19/21 06/19/21 06/19/21 06:59 14:59 22:59 Other: Weight 83.461 kg Results CBC & Chem 7: 06/19/21 17:31 06/19/21 17:31 Labs: Abnormal Lab Results - Last 24 Hours (Table) 06/19/21 06/19/21 06/19/21 Range/Units 17:31 17:31 17:31 WBC 14.5 H (3.8-10.6) k/uL RBC 1.91 L (3.80-5.40) m/uL Hgb 7.2 L (11.4-16.0) gm/dL Hct 20.8 L (34.0-46.0) % MCV 108.9 H (80.0-100.0) fL MCH 37.9 H (25.0-35.0) pg RDW 18.0 H (11.5-15.5) % Plt Count 59 L (150-450) k/uL Monocytes # (Manual) 4.79 H (0-1.0) k/uL Metamyelocytes # (Man) 0.15 H (0) k/uL Promyelocytes # (Man) 0.15 H (0) k/uL Macrocytosis Marked A APTT 21.1 L (22.0-30.0) sec D-Dimer (<0.60) mg/L FEU Glucose (74-99) mg/dL AST (14-36) U/L Creatine Kinase (30-135) U/L Urine Appearance Turbid H (Clear) Urine Protein 2+ H (Negative) Urine Ketones Trace H (Negative) Ur Leukocyte Esterase Trace H (Negative) Urine WBC 35 H (0-5) /hpf Calcium Oxalate Crystal Many H (None) /hpf Amorphous Sediment Occasional H (None) /hpf Urine Bacteria Moderate H (None) /hpf Hyaline Casts 59 H (0-2) /lpf Urine Mucus Many H (None) /hpf 06/19/21 06/19/21 Range/Units 17:31 20:30 WBC (3.8-10.6) k/uL RBC (3.80-5.40) m/uL Hgb (11.4-16.0) gm/dL Hct (34.0-46.0) % MCV (80.0-100.0) fL MCH (25.0-35.0) pg RDW (11.5-15.5) % Plt Count (150-450) k/uL Monocytes # (Manual) (0-1.0) k/uL Metamyelocytes # (Man) (0) k/uL Promyelocytes # (Man) (0) k/uL Macrocytosis APTT (22.0-30.0) sec D-Dimer 1.42 H (<0.60) mg/L FEU Glucose 158 H (74-99) mg/dL AST 38 H (14-36) U/L Creatine Kinase 23 L (30-135) U/L Urine Appearance (Clear) Urine Protein (Negative) Urine Ketones (Negative) Ur Leukocyte Esterase (Negative) Urine WBC (0-5) /hpf Calcium Oxalate Crystal (None) /hpf Amorphous Sediment (None) /hpf Urine Bacteria (None) /hpf Hyaline Casts (0-2) /lpf Urine Mucus (None) /hpf
[2021-06-20 05:29] LABS: Anisocytosis Slight; Basophils # (A) 0.1 k/uL (0-0.2); Basophils % (A) 1 %; Eosinophils % (A) 0 %; Lymphocytes # (A) 2.2 k/uL (1.0-4.8); Lymphocytes % (A) 25 %; MCH 38.8 pg (25.0-35.0); MCHC 35.3 g/dL (31.0-37.0); MCV 109.7 fL (80.0-100.0); Macrocytosis Marked; Mean Platelet Volume 11.6; Monocytes # (A) 0.7 k/uL (0-1.0); Monocytes % (A) 8 %; Neutrophils % (A) 5 %; Platelet Count 38 k/uL (150-450); RDW 17.2 % (11.5-15.5)
[2021-06-20 05:43] LABS: Neutrophils # (A) 0.4 k/uL (1.3-7.7)
[2021-06-20 05:50] LABS: HCT 16.5 % (34.0-46.0); HGB 5.8 gm/dL (11.4-16.0)
[2021-06-20 06:58] LABS: ALT 23 U/L (4-34); AST 33 U/L (14-36); African American GFR (CKD) 83 (>60 ml/min/1.73 sqM); Albumin 3.2 g/dL (3.5-5.0); Albumin/Globulin Ratio 0.9; Alkaline Phosphatase 59 U/L (38-126); Anion Gap 4 mmol/L; Blood Urea Nitrogen 10 mg/dL (7-17); Calcium 8.6 mg/dL (8.4-10.2); Carbon Dioxide 31 mmol/L (22-30); Chloride 103 mmol/L (98-107); Globulin 3.5 g/dL; Glucose 168 mg/dL (74-99); Non-African American GFR(CKD) 72 (>60 ml/min/1.73 sqM); Potassium 3.7 mmol/L (3.5-5.1); Sodium 138 mmol/L (137-145); Total Bilirubin 0.4 mg/dL (0.2-1.3); Total Protein 6.7 g/dL (6.3-8.2)
[2021-06-20 07:20] LABS: Band Neutrophils % 2 %; Eosinophils # (M) 0.09 k/uL (0-0.7); Lymphocytes # (M) 3.18 k/uL (1.0-4.8); Monocytes # (M) 2.15 k/uL (0-1.0); Neutrophils % (M) 37 %; Nucleated Red Blood Cells 3 /100 WBC (0-0); Total Cells Counted 200; WBC 8.6 k/uL (3.8-10.6)
[2021-06-20 07:21] LABS: Polychromasia Present
[2021-06-20 07:31] LABS: Glucose,Whole Blood 137 mg/dL (75-99)
[2021-06-20] MEDS: SODIUM CHLORIDE 0.9% 1,000 ML IV SCH ×4 (07:54→20:49)
[2021-06-20] MEDS: INSULIN ASPART (NovoLOG) 100 UNIT/ML VIAL SQ SCH ×4 (07:54→20:44)
[2021-06-20] MEDS: ACETAMINOPHEN TAB 325 MG TAB PO PRN (09:21)
[2021-06-20 11:19] LABS: Glucose,Whole Blood 121 mg/dL (75-99)
[2021-06-20] MEDS: PARoxetine 10 MG TAB PO SCH (12:42)
[2021-06-20 12:52] LABS: Anisocytosis Slight; HCT 22.2 % (34.0-46.0); MCH 35.8 pg (25.0-35.0); MCHC 35.3 g/dL (31.0-37.0); MCV 101.3 fL (80.0-100.0); Macrocytosis Moderate; Mean Platelet Volume 11.3; RBC 2.19 m/uL (3.80-5.40); RDW 18.7 % (11.5-15.5)
[2021-06-20 13:03] LABS: Platelet Count 35 k/uL (150-450)
[2021-06-20 13:20] LABS: HGB 7.8 gm/dL (11.4-16.0)
--- NOTE | 2021-06-20 13:48 | P.PN ---
Subjective Progress Note Date: 06/20/21 Principal diagnosis: fevers Patient is a 61 yo CF with a hx of thrombocytopenia recently discovered, arthritis, and anxiety who was sent in by Dr. Forte due to fever and worsening thrombocytopenia. She underwent an extensive evaluation in the emergency department. She was found to have anemia, thrombocytopenia, and mild leukocytosis. Her urinalysis was not consistent with infection but was more concerning for dehydration. Chest x-ray showed no acute process. She was started on rocephin for possible UTI and arrangement were made of admission. She was seen by Oncology who plan for bone marrow biopsy with concerns for leukemia. Fevers may possibly be a B symptom. Patient seen and examined at bedside. No chest pain, not light headed, no unusualy shorntess of breath. Since the begining of may she reports fatigue, shortness of breath, and over all not feeling well. She denies significant dysuria. at bedside, all questions answered. General: non toxic , no distress, appears at stated age Derm: + several small bruises on lower extremities, warm, dry Head: atraumatic, normocephalic, symmetric Eyes: EOMI, no lid lag, anicteric sclera Mouth: no lip lesion, mucus membranes moist Cardiovascular: S1S2 reg, no murmur, positive posterior tibial pulse bilateral, Lungs: CTA bilateral, no rhonchi, no rales , no accessory muscle use Abdominal: soft, nontender to palpation, no guarding, no appreciable organomegaly Ext: no gross muscle atrophy, no edema, no contractures Neuro: CN II-XI grossly intact, no focal neuro deficits Psych: Alert, oriented, appropriate affect Leukocytosis, Anemia, and Thrombocytopenia - transfuse 1 unit pRBC and repeat CBC - Oncology recs: Bone marrow biopsy - smear with immature precursor cells - follow CBC and transfuse as indicated. - folate, TSH, B12 normal, iron studie and ferritin elevated - suspect d-dimer elevation due to inflammation and not reflective of pulmonary embolism Fever/SIRS - Likely B symptoms - doubt UTI as no urinary symptoms, continue rocephin until culture complete - CXR negative - blood cultures pending Anxiety - resume paxil DVT prophylaxis: SCDs Discussed with: patient, nursing Anticipated discharge: 4-[address]: home A total of 35 minutes was spent on the care of this complex patient more than 50% of the time was spent in counseling and care coordination Objective - Vital Signs Vital signs: Vital Signs Temp 101.4 F H 06/20/21 09:13 Pulse 106 H 06/20/21 09:13 Resp 16 06/20/21 09:13 BP 125/62 06/20/21 09:13 Pulse Ox 95 06/20/21 08:00 Intake & Output 06/19/21 06/20/21 06/20/21 18:59 06:59 18:59 Intake Total 310 Balance 310 Weight 83.461 kg 83.461 kg Intake: Blood Product 310 Rc As-1 Unit 310 [id number] - Labs CBC & Chem 7: 06/20/21 12:26 06/20/21 04:33 Labs: Abnormal Lab Results - Last 24 Hours (Table) 06/19/21 06/19/21 06/19/21 Range/Units 17:31 17:31 17:31 WBC 14.5 H (3.8-10.6) k/uL RBC 1.91 L (3.80-5.40) m/uL Hgb 7.2 L (11.4-16.0) gm/dL Hct 20.8 L (34.0-46.0) % MCV 108.9 H (80.0-100.0) fL MCH 37.9 H (25.0-35.0) pg RDW 18.0 H (11.5-15.5) % Plt Count 59 L (150-450) k/uL Monocytes # (Manual) 4.79 H (0-1.0) k/uL Metamyelocytes # (Man) 0.15 H (0) k/uL Promyelocytes # (Man) 0.15 H (0) k/uL Macrocytosis Marked A APTT 21.1 L (22.0-30.0) sec D-Dimer (<0.60) mg/L FEU Carbon Dioxide (22-30) mmol/L Glucose (74-99) mg/dL POC Glucose (mg/dL) (75-99) mg/dL AST (14-36) U/L Creatine Kinase (30-135) U/L Albumin (3.5-5.0) g/dL Urine Appearance Turbid H (Clear) Urine Protein 2+ H (Negative) Urine Ketones Trace H (Negative) Ur Leukocyte Esterase Trace H (Negative) Urine WBC 35 H (0-5) /hpf Calcium Oxalate Crystal Many H (None) /hpf Amorphous Sediment Occasional H (None) /hpf Urine Bacteria Moderate H (None) /hpf Hyaline Casts 59 H (0-2) /lpf Urine Mucus Many H (None) /hpf Crossmatch 06/19/21 06/19/21 06/20/21 Range/Units 17:31 20:30 04:33 WBC (3.8-10.6) k/uL RBC 1.50 L (3.80-5.40) m/uL Hgb 5.8 L* (11.4-16.0) gm/dL Hct 16.5 L* (34.0-46.0) % MCV 109.7 H (80.0-100.0) fL MCH 38.8 H (25.0-35.0) pg RDW 17.2 H (11.5-15.5) % Plt Count 38 L (150-450) k/uL Monocytes # (Manual) (0-1.0) k/uL Metamyelocytes # (Man) (0) k/uL Promyelocytes # (Man) (0) k/uL Macrocytosis Marked A APTT (22.0-30.0) sec D-Dimer 1.42 H (<0.60) mg/L FEU Carbon Dioxide (22-30) mmol/L Glucose 158 H (74-99) mg/dL POC Glucose (mg/dL) (75-99) mg/dL AST 38 H (14-36) U/L Creatine Kinase 23 L (30-135) U/L Albumin (3.5-5.0) g/dL Urine Appearance (Clear) Urine Protein (Negative) Urine Ketones (Negative) Ur Leukocyte Esterase (Negative) Urine WBC (0-5) /hpf Calcium Oxalate Crystal (None) /hpf Amorphous Sediment (None) /hpf Urine Bacteria (None) /hpf Hyaline Casts (0-2) /lpf Urine Mucus (None) /hpf Crossmatch 06/20/21 06/20/21 06/20/21 Range/Units 04:33 05:02 07:28 WBC (3.8-10.6) k/uL RBC (3.80-5.40) m/uL Hgb (11.4-16.0) gm/dL Hct (34.0-46.0) % MCV (80.0-100.0) fL MCH (25.0-35.0) pg RDW (11.5-15.5) % Plt Count (150-450) k/uL Monocytes # (Manual) (0-1.0) k/uL Metamyelocytes # (Man) (0) k/uL Promyelocytes # (Man) (0) k/uL Macrocytosis APTT (22.0-30.0) sec D-Dimer (<0.60) mg/L FEU Carbon Dioxide 31 H (22-30) mmol/L Glucose 168 H (74-99) mg/dL POC Glucose (mg/dL) 137 H (75-99) mg/dL AST (14-36) U/L Creatine Kinase (30-135) U/L Albumin 3.2 L (3.5-5.0) g/dL Urine Appearance (Clear) Urine Protein (Negative) Urine Ketones (Negative) Ur Leukocyte Esterase (Negative) Urine WBC (0-5) /hpf Calcium Oxalate Crystal (None) /hpf Amorphous Sediment (None) /hpf Urine Bacteria (None) /hpf Hyaline Casts (0-2) /lpf Urine Mucus (None) /hpf Crossmatch See Detail 06/20/21 06/20/21 Range/Units 11:17 12:26 WBC 12.0 H (3.8-10.6) k/uL RBC 2.19 L (3.80-5.40) m/uL Hgb 7.8 L D (11.4-16.0) gm/dL Hct 22.2 L (34.0-46.0) % MCV 101.3 H D (80.0-100.0) fL MCH 35.8 H (25.0-35.0) pg RDW 18.7 H (11.5-15.5) % Plt Count (150-450) k/uL Monocytes # (Manual) (0-1.0) k/uL Metamyelocytes # (Man) (0) k/uL Promyelocytes # (Man) (0) k/uL Macrocytosis APTT (22.0-30.0) sec D-Dimer (<0.60) mg/L FEU Carbon Dioxide (22-30) mmol/L Glucose (74-99) mg/dL POC Glucose (mg/dL) 121 H (75-99) mg/dL AST (14-36) U/L Creatine Kinase (30-135) U/L Albumin (3.5-5.0) g/dL Urine Appearance (Clear) Urine Protein (Negative) Urine Ketones (Negative) Ur Leukocyte Esterase (Negative) Urine WBC (0-5) /hpf Calcium Oxalate Crystal (None) /hpf Amorphous Sediment (None) /hpf Urine Bacteria (None) /hpf Hyaline Casts (0-2) /lpf Urine Mucus (None) /hpf Crossmatch Microbiology - Last 24 Hours (Table) 06/19/21 17:31 Urine Culture - Preliminary Urine,Voided
[2021-06-20 15:08] LABS: Band Neutrophils % 1 %; Basophils # (M) 0.12 k/uL (0-0.2); Eosinophils # (M) 0.12 k/uL (0-0.7); Lymphocytes # (M) 3.48 k/uL (1.0-4.8); Metamyelocytes # (M) 0.12 k/uL (0); Metamyelocytes % 1 %; Monocytes # (M) 4.44 k/uL (0-1.0); Myelocytes # (M) 0.24 k/uL (0); Myelocytes % 2 %; Neutrophils % (M) 31 %; Nucleated Red Blood Cells 0 /100 WBC (0-0); Total Cells Counted 200
[2021-06-20 15:10] LABS: Polychromasia Present
--- NOTE | 2021-06-20 15:18 | P.CONS ---
History of Present Illness - Reason for Consult Consult date: 06/20/21 bicytopenia Requesting physician: Jack Soler - Chief Complaint UTI, fever, sepsis - History of Present Illness Mrs. Lujan is a very pleasant 61-year-old female who we've been asked to see regarding macrocytic anemia and thrombocytopenia. This is of sudden onset, labs have been normal up until 06/07 on a routine lab drawn by her PCP. Patient was seen in the office yesterday and noted to have a temperature so, she was sent to the emergency department for full pain culture workup, IV antibiotics and evaluation. Patient denies having any fevers,chills or night sweats prior to the fevers that she's had in the last several days, she was Covid negative. She's had about a 12 pound weight loss in a few weeks, she denies any difficulty swallowing, painful swallowing, chest pain, difficulty in breathing, cough, abdominal pain or cramping, acute changes in bowel or bladder habits, no history of bleeding, blood disorders, cancers. her energy levels and stamina have declined pretty rapidly in the last 1-2 weeks. Iron studies significantly elevated (this was prior to transfusion), thyroid studies were normal, LDH elevated 438. MCV 109.7, renal function is normal. Hemoglobin 5.8 on admission, platelet count 38,000. Patient has had no other acute changes in her health, no other complaints. She received her second covid vaccine 04/07/21 Review of Systems 10 point review of systems is negative except as stated in HPI Past Medical History Past Medical History: Osteoarthritis (OA) History of Any Multi-Drug Resistant Organisms: None Reported Past Surgical History: Breast Surgery, Orthopedic Surgery Additional Past Surgical History / Comment(s): breast biopsy, arthroscopy left and right knee Past Anesthesia/Blood Transfusion Reactions: No Reported Reaction Past Psychological History: Anxiety Smoking Status: Never smoker Past Alcohol Use History: None Reported Past Drug Use History: None Reported - Past Family History Father Family Medical History: Cancer Mother Family Medical History: Diabetes Mellitus Medications and Allergies Home Medications Medication Instructions Recorded Confirmed Type PARoxetine [Paxil] 10 mg PO DAILY 12/17/18 06/19/21 History Multivit-Min/Iron/Folic/Lutein 1 tab PO DAILY 06/19/21 06/19/21 History [Centrum Silver Women Tablet] Allergies Allergy/AdvReac Type Severity Reaction Status Date / Time No Known Allergies Allergy Verified 06/19/21 18:05 Physical Exam Vitals: Vital Signs Temp Pulse Pulse Resp BP BP Pulse Ox 06/20/21 14:00 97.9 F 105 H 16 121/55 96 06/20/21 09:13 101.4 F H 106 H 16 125/62 06/20/21 08:00 98.4 F 101 H 18 134/67 95 06/20/21 07:49 100.3 F H 106 H 16 114/60 06/20/21 07:19 98.2 F 102 H 16 134/67 06/20/21 07:09 99.0 F 105 H 16 134/67 06/20/21 05:54 70 16 120/57 99 06/20/21 04:00 75 17 121/70 98 06/20/21 02:40 79 17 133/74 100 06/19/21 18:23 125 H 18 121/69 98 06/19/21 17:18 124 H 18 140/76 97 06/19/21 16:31 99.4 F 128 H 18 118/80 100 Intake and Output 06/19/21 06/20/21 06/20/21 22:59 06:59 14:59 Intake Total 310 Balance 310 Intake: Blood Product 310 Rc As-1 Unit 310 [id number] Other: Weight 83.461 kg 83.461 kg - Constitutional General appearance: average body habitus, cooperative, no acute distress - EENT Eyes: anicteric sclerae, EOMI ENT: hearing grossly normal, normal oropharynx - Neck Neck: no lymphadenopathy - Respiratory Respiratory: bilateral: CTA - Cardiovascular Rhythm: regular Heart sounds: normal: S1, S2 Abnormal Heart Sounds: no systolic murmur, no diastolic murmur, no rub, no S3 Gallop, no S4 Gallop, no click, no other leg Peripheral Edema: bilateral: None - Gastrointestinal General gastrointestinal: no absent bowel sounds, no decreased bowel sounds, no distended, no hepatomegaly, no hyperactive bowel sounds, normal bowel sounds, no organomegaly, no rigid, no scaphoid, soft, no splenomegaly, no tenderness, no umbilical hernia, no ventral hernia - Integumentary Integumentary: normal turgor, pale - Neurologic Neurologic: CNII-XII intact - Musculoskeletal Musculoskeletal: strength equal bilaterally - Psychiatric Psychiatric: A&O x's 3, appropriate affect, intact judgment & insight Results CBC & Chem 7: 06/20/21 12:26 06/20/21 04:33 Labs: Abnormal Lab Results - Last 24 Hours (Table) 06/19/21 06/19/21 06/19/21 Range/Units 17:31 17:31 17:31 WBC 14.5 H (3.8-10.6) k/uL RBC 1.91 L (3.80-5.40) m/uL Hgb 7.2 L (11.4-16.0) gm/dL Hct 20.8 L (34.0-46.0) % MCV 108.9 H (80.0-100.0) fL MCH 37.9 H (25.0-35.0) pg RDW 18.0 H (11.5-15.5) % Plt Count 59 L (150-450) k/uL Monocytes # (Manual) 4.79 H (0-1.0) k/uL Metamyelocytes # (Man) 0.15 H (0) k/uL Promyelocytes # (Man) 0.15 H (0) k/uL Macrocytosis Marked A APTT 21.1 L (22.0-30.0) sec D-Dimer (<0.60) mg/L FEU Carbon Dioxide (22-30) mmol/L Glucose (74-99) mg/dL POC Glucose (mg/dL) (75-99) mg/dL AST (14-36) U/L Creatine Kinase (30-135) U/L Albumin (3.5-5.0) g/dL Urine Appearance Turbid H (Clear) Urine Protein 2+ H (Negative) Urine Ketones Trace H (Negative) Ur Leukocyte Esterase Trace H (Negative) Urine WBC 35 H (0-5) /hpf Calcium Oxalate Crystal Many H (None) /hpf Amorphous Sediment Occasional H (None) /hpf Urine Bacteria Moderate H (None) /hpf Hyaline Casts 59 H (0-2) /lpf Urine Mucus Many H (None) /hpf Crossmatch 06/19/21 06/19/21 06/20/21 Range/Units 17:31 20:30 04:33 WBC (3.8-10.6) k/uL RBC 1.50 L (3.80-5.40) m/uL Hgb 5.8 L* (11.4-16.0) gm/dL Hct 16.5 L* (34.0-46.0) % MCV 109.7 H (80.0-100.0) fL MCH 38.8 H (25.0-35.0) pg RDW 17.2 H (11.5-15.5) % Plt Count 38 L (150-450) k/uL Monocytes # (Manual) (0-1.0) k/uL Metamyelocytes # (Man) (0) k/uL Promyelocytes # (Man) (0) k/uL Macrocytosis Marked A APTT (22.0-30.0) sec D-Dimer 1.42 H (<0.60) mg/L FEU Carbon Dioxide (22-30) mmol/L Glucose 158 H (74-99) mg/dL POC Glucose (mg/dL) (75-99) mg/dL AST 38 H (14-36) U/L Creatine Kinase 23 L (30-135) U/L Albumin (3.5-5.0) g/dL Urine Appearance (Clear) Urine Protein (Negative) Urine Ketones (Negative) Ur Leukocyte Esterase (Negative) Urine WBC (0-5) /hpf Calcium Oxalate Crystal (None) /hpf Amorphous Sediment (None) /hpf Urine Bacteria (None) /hpf Hyaline Casts (0-2) /lpf Urine Mucus (None) /hpf Crossmatch 06/20/21 06/20/21 06/20/21 Range/Units 04:33 05:02 07:28 WBC (3.8-10.6) k/uL RBC (3.80-5.40) m/uL Hgb (11.4-16.0) gm/dL Hct (34.0-46.0) % MCV (80.0-100.0) fL MCH (25.0-35.0) pg RDW (11.5-15.5) % Plt Count (150-450) k/uL Monocytes # (Manual) (0-1.0) k/uL Metamyelocytes # (Man) (0) k/uL Promyelocytes # (Man) (0) k/uL Macrocytosis APTT (22.0-30.0) sec D-Dimer (<0.60) mg/L FEU Carbon Dioxide 31 H (22-30) mmol/L Glucose 168 H (74-99) mg/dL POC Glucose (mg/dL) 137 H (75-99) mg/dL AST (14-36) U/L Creatine Kinase (30-135) U/L Albumin 3.2 L (3.5-5.0) g/dL Urine Appearance (Clear) Urine Protein (Negative) Urine Ketones (Negative) Ur Leukocyte Esterase (Negative) Urine WBC (0-5) /hpf Calcium Oxalate Crystal (None) /hpf Amorphous Sediment (None) /hpf Urine Bacteria (None) /hpf Hyaline Casts (0-2) /lpf Urine Mucus (None) /hpf Crossmatch See Detail 06/20/21 06/20/21 Range/Units 11:17 12:26 WBC 12.0 H (3.8-10.6) k/uL RBC 2.19 L (3.80-5.40) m/uL Hgb 7.8 L D (11.4-16.0) gm/dL Hct 22.2 L (34.0-46.0) % MCV 101.3 H D (80.0-100.0) fL MCH 35.8 H (25.0-35.0) pg RDW 18.7 H (11.5-15.5) % Plt Count (150-450) k/uL Monocytes # (Manual) (0-1.0) k/uL Metamyelocytes # (Man) (0) k/uL Promyelocytes # (Man) (0) k/uL Macrocytosis APTT (22.0-30.0) sec D-Dimer (<0.60) mg/L FEU Carbon Dioxide (22-30) mmol/L Glucose (74-99) mg/dL POC Glucose (mg/dL) 121 H (75-99) mg/dL AST (14-36) U/L Creatine Kinase (30-135) U/L Albumin (3.5-5.0) g/dL Urine Appearance (Clear) Urine Protein (Negative) Urine Ketones (Negative) Ur Leukocyte Esterase (Negative) Urine WBC (0-5) /hpf Calcium Oxalate Crystal (None) /hpf Amorphous Sediment (None) /hpf Urine Bacteria (None) /hpf Hyaline Casts (0-2) /lpf Urine Mucus (None) /hpf Crossmatch Microbiology - Last 24 Hours (Table) 06/19/21 17:31 Urine Culture - Preliminary Urine,Voided Assessment and Plan (1) Thrombocytopenia Current Visit: Yes Status: Acute Priority: High Code(s): D69.6 - THROMBOCYTOPENIA, UNSPECIFIED SNOMED Code(s): 130494852 (2) Anemia Current Visit: Yes Status: Acute Priority: High Code(s): D64.9 - ANEMIA, UNSPECIFIED SNOMED Code(s): 724201586 (3) Sepsis Narrative/Plan: garner cultures pending, empiric antibiotics. Current Visit: Yes Status: Acute Priority: High Code(s): A41.9 - SEPSIS, UNSPECIFIED ORGANISM SNOMED Code(s): 24253131 Plan: Acute macrocytic anemia. Labs are not indicating hemolysis. No evidence of splenomegaly or liver disease. Patient is not on any medications associated with macrocytic anemia, patient has no other medical conditions other than arthritis to report. Dr. Forte discussed with her and her concerns for a primary bone marrow inability to function. Recommendation is for bone marrow biopsy and aspirate. The procedure was reviewed with the patient as well as risks of the procedure such as infection and bleeding. Patient is agreeable to move forward. Plan is for bone marrow biopsy and aspirate tomorrow at 12:15. Orders for consent to been placed. Nothing by mouth. SCDs for DVT prophylaxis. Doctor attests: I performed a history and physical examination of this patient, developed impression and plan of care, discussed with dictator. I agree with dictators note, documented as a scribe. Time with Patient: Greater than 30
[2021-06-20 15:44] LABS: Reticulocyte % 2.3 % (0.5-2.0)
[2021-06-20 16:29] LABS: Hemoglobin A1C 6.5 % (4.0-6.0)
[2021-06-20 17:29] LABS: Glucose,Whole Blood 108 mg/dL (75-99)
[2021-06-20 20:19] LABS: Glucose,Whole Blood 148 mg/dL (75-99)
[2021-06-21 07:12] LABS: Glucose,Whole Blood 115 mg/dL (75-99)
[2021-06-21] MEDS: INSULIN ASPART (NovoLOG) 100 UNIT/ML VIAL SQ SCH ×3 (07:31→17:45)
[2021-06-21] MEDS: SODIUM CHLORIDE 0.9% 1,000 ML IV SCH ×2 (08:09→14:16)
[2021-06-21] MEDS: PARoxetine 10 MG TAB PO SCH (08:09)
[2021-06-21 11:58] LABS: Glucose,Whole Blood 125 mg/dL (75-99)
[2021-06-21 12:20] LABS: ALT 22 U/L (4-34); AST 35 U/L (14-36); African American GFR (CKD) >90 (>60 ml/min/1.73 sqM); Albumin 3.6 g/dL (3.5-5.0); Alkaline Phosphatase 68 U/L (38-126); Anion Gap 5 mmol/L; Blood Urea Nitrogen 6 mg/dL (7-17); Calcium 8.5 mg/dL (8.4-10.2); Carbon Dioxide 29 mmol/L (22-30); Chloride 105 mmol/L (98-107); Globulin 3.6 g/dL; Glucose 123 mg/dL (74-99); Non-African American GFR(CKD) 82 (>60 ml/min/1.73 sqM); Potassium 3.7 mmol/L (3.5-5.1); Sodium 139 mmol/L (137-145); Total Bilirubin 0.6 mg/dL (0.2-1.3); Total Protein 7.2 g/dL (6.3-8.2)
[2021-06-21 12:22] LABS: Anisocytosis Slight; HCT 21.2 % (34.0-46.0); HGB 7.4 gm/dL (11.4-16.0); MCH 35.7 pg (25.0-35.0); MCHC 34.7 g/dL (31.0-37.0); MCV 102.6 fL (80.0-100.0); Macrocytosis Moderate; RBC 2.07 m/uL (3.80-5.40); RDW 19.5 % (11.5-15.5); WBC 9.2 k/uL (3.8-10.6)
[2021-06-21] MEDS ORDERED: fentaNYL (PF) 50 MCG/ML 2 ML AMP ONE (12:24)
[2021-06-21] MEDS ORDERED: LIDOCAINE 1% INJ 10MG/ML (20 ML MDV) ONE (12:24)
[2021-06-21] MEDS ORDERED: LIDOCAINE 2% INJ 20 MG/ML SQ ONE ×2 (12:24→12:34)
[2021-06-21] MEDS ORDERED: PROPOFOL 10 MG/ML 20 ML VIAL IV ONE (12:24)
[2021-06-21] MEDS ORDERED: IV FLUID CONTINUATION 100 ML IV ONE (12:25)
[2021-06-21 12:26] LABS: INR 1.1 (<1.2); Prothrombin Time 11.7 sec (9.0-12.0)
[2021-06-21 12:35] LABS: Platelet Count 39 k/uL (150-450)
[2021-06-21] MEDS ORDERED: SODIUM CHLORIDE 0.9% 500 ML 500 ML IV ONE (12:48)
--- NOTE | 2021-06-21 12:56 | P.PCN ---
Date of Procedure: 06/21/21 Preoperative Diagnosis: Bicytopenia, leukocytosis with immature monocytes. 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 Labs show new onset bicytopenia, leukocytosis with left shift especially immature monocytoid cells, suspicious for advanced MDS versus AML Operative Findings: Adequate samples Description of Procedure: The procedure was explained in detail to the patient on the floor. Informed consent was obtained from the floor. She was brought to the outpatient endoscopy suite and placed in left lateral recover disposition. Area over both posterior iliac crests was cleaned and prepped with chlorhexidine and sterile draping. IV sedation was then initiated. Local anesthesia was administered with lidocaine to the right posterior iliac crest.. A Jamshidi needle was then inserted and bone marrow aspirate and biopsy obtained. As the initial biopsy sample was somewhat small an additional past was made with a larger sample obtained. On withdrawal of the needle hemostasis was easily achieved. Blood loss was minimal and recovery from sedation was satisfactory. She appeared to have tolerated the procedure well without any obvious, immediate complications. She was clear to be transferred back to the floor.
[2021-06-21 17:03] LABS: Glucose,Whole Blood 185 mg/dL (75-99)
--- NOTE | 2021-06-21 18:48 | P.PN ---
Subjective Progress Note Date: 06/21/21 Principal diagnosis: fevers Patient is a 61 yo CF with a hx of thrombocytopenia recently discovered, arthritis, and anxiety who was sent in by Dr. Forte due to fever and worsening thrombocytopenia. She underwent an extensive evaluation in the emergency department. She was found to have anemia, thrombocytopenia, and mild leukocytosis. Her urinalysis was not consistent with infection but was more concerning for dehydration. Chest x-ray showed no acute process. She was started on rocephin for possible UTI and arrangement were made of admission. She was seen by Oncology who plan for bone marrow biopsy with concerns for leukemia. Fevers may possibly be a B symptom. Patient seen and examined at bedside. No chest pain, not light headed, no unusualy shorntess of breath. Since the begining of may she reports fatigue, shortness of breath, and over all not feeling well. She denies significant dysuria. at bedside, all questions answered. General: non toxic , no distress, appears at stated age Derm: + several small bruises on lower extremities, warm, dry Head: atraumatic, normocephalic, symmetric Eyes: EOMI, no lid lag, anicteric sclera Mouth: no lip lesion, mucus membranes moist Cardiovascular: S1S2 reg, no murmur, positive posterior tibial pulse bilateral, Lungs: CTA bilateral, no rhonchi, no rales , no accessory muscle use Abdominal: soft, nontender to palpation, no guarding, no appreciable organomegaly Ext: no gross muscle atrophy, no edema, no contractures Neuro: CN II-XI grossly intact, no focal neuro deficits Psych: Alert, oriented, appropriate affect Leukocytosis, Anemia, and Thrombocytopenia - transfuse 1 unit pRBC and repeat CBC - Oncology recs: Bone marrow biopsy concern for her AML versus advanced MDS - smear with immature precursor cells - follow CBC and transfuse as indicated. - folate, TSH, B12 normal, iron studies and ferritin elevated - suspect d-dimer elevation due to inflammation and not reflective of pulmonary embolism Diabetes mellitus type 2 newly discovered -Hemoglobin A1c 6.5 -telehealth nurse educator -Case management to arrange for a glucometer on discharge -She'll be going home on diet control. Fever/SIRS - Likely B symptoms - doubt UTI as no urinary symptoms, urine cultures negative. Stop antibiotics - CXR negative - blood cultures pending Anxiety - paxil DVT prophylaxis: SCDs Discussed with: patient, nursing Anticipated discharge: 4-[address]: home A total of 35 minutes was spent on the care of this complex patient more than 50% of the time was spent in counseling and care coordination Objective - Vital Signs Vital signs: Vital Signs Temp 99.1 F 06/21/21 13:08 Pulse 99 06/21/21 13:08 Resp 18 06/21/21 13:08 BP 105/70 06/21/21 13:08 Pulse Ox 90 L 06/21/21 13:08 Intake & Output 06/20/21 06/21/21 06/21/21 18:59 06:59 18:59 Intake Total 310 1660 1900 Balance 310 1660 1900 Weight 83.461 kg Intake: IV 300 Intake, IV Titration 1660 100 Amount Sodium Chloride 0.9% 1, 1560 000 ml @ 130 mls/hr IV . Q7H42M [facility] Rx#:[id number] cefTRIAXone 1 gm In 100 100 Sodium Chloride 0.9% 50 ml @ 100 mls/hr IVPB Q24H [facility] Rx#:[id number] Oral 1500 Blood Product 310 Rc As-1 Unit 310 [id number] Other: # Voids 1 2 3 - Labs CBC & Chem 7: 06/21/21 11:47 06/21/21 11:47 Labs: Abnormal Lab Results - Last 24 Hours (Table) 06/20/21 06/21/21 06/21/21 Range/Units 20:17 07:04 11:47 RBC 2.07 L (3.80-5.40) m/uL Hgb 7.4 L (11.4-16.0) gm/dL Hct 21.2 L (34.0-46.0) % MCV 102.6 H (80.0-100.0) fL MCH 35.7 H (25.0-35.0) pg RDW 19.5 H (11.5-15.5) % Plt Count 39 L (150-450) k/uL BUN (7-17) mg/dL Glucose (74-99) mg/dL POC Glucose (mg/dL) 148 H 115 H (75-99) mg/dL 06/21/21 06/21/21 06/21/21 Range/Units 11:47 11:56 17:02 RBC (3.80-5.40) m/uL Hgb (11.4-16.0) gm/dL Hct (34.0-46.0) % MCV (80.0-100.0) fL MCH (25.0-35.0) pg RDW (11.5-15.5) % Plt Count (150-450) k/uL BUN 6 L (7-17) mg/dL Glucose 123 H (74-99) mg/dL POC Glucose (mg/dL) 125 H 185 H (75-99) mg/dL Microbiology - Last 24 Hours (Table) 06/19/21 17:31 Urine Culture - Final Urine,Voided 06/19/21 17:31 Blood Culture - Preliminary Blood No Growth after 24 hours 06/19/21 17:31 Blood Culture - Preliminary Blood No Growth after 24 hours
[2021-06-22] MEDS: SODIUM CHLORIDE 0.9% 1,000 ML IV SCH ×4 (00:42→20:10)
[2021-06-22 06:25] LABS: Anisocytosis Slight; MCH 35.3 pg (25.0-35.0); MCHC 33.7 g/dL (31.0-37.0); MCV 104.7 fL (80.0-100.0); Macrocytosis Marked; Platelet Count 28 k/uL (150-450); RBC 1.79 m/uL (3.80-5.40); RDW 19.8 % (11.5-15.5)
[2021-06-22 06:29] LABS: HCT 18.7 % (34.0-46.0); HGB 6.3 gm/dL (11.4-16.0)
[2021-06-22 07:21] LABS: Glucose,Whole Blood 119 mg/dL (75-99)
[2021-06-22] MEDS: PARoxetine 10 MG TAB PO SCH (08:46)
[2021-06-22] MEDS: ACETAMINOPHEN TAB 325 MG TAB PO PRN (09:31)
[2021-06-22 10:07] LABS: Lymphocytes # (M) 2.35 k/uL (1.0-4.8); Monocytes # (M) 1.55 k/uL (0-1.0); Neutrophils # (M) 1.15 k/uL (1.3-7.7); Neutrophils % (M) 23 %; Nucleated Red Blood Cells 0 /100 WBC (0-0); Total Cells Counted 200
[2021-06-22 10:11] LABS: Polychromasia Present
[2021-06-22 11:40] VITALS: BMI 31.6
--- NOTE | 2021-06-22 16:44 | P.PN ---
Subjective Progress Note Date: 06/22/21 (delayed charting seen at 0830) Principal diagnosis: fevers Patient is a 61 yo CF with a hx of thrombocytopenia recently discovered, arthritis, and anxiety who was sent in by Dr. Forte due to fever and worsening thrombocytopenia. She underwent an extensive evaluation in the emergency department. She was found to have anemia, thrombocytopenia, and mild leukocytosis. Her urinalysis was not consistent with infection but was more concerning for dehydration. Chest x-ray showed no acute process. She was started on rocephin for possible UTI and arrangement were made of admission. She was seen by Oncology and underwent bone marrow biopsy on 06/21. Fevers may possibly be a B symptom. Patient seen and examined at bedside. No chest pain, no lightheadedness, no dizziness, no shortness of breath. at bedside, all questions answered. General: non toxic , no distress, appears at stated age Derm: + several small bruises on lower extremities, warm, dry Head: atraumatic, normocephalic, symmetric Eyes: EOMI, no lid lag, anicteric sclera Mouth: no lip lesion, mucus membranes moist Cardiovascular: S1S2 tachycardic with diastolic murmur, positive posterior tibial pulse bilateral, Lungs: CTA bilateral, no rhonchi, no rales , no accessory muscle use Abdominal: soft, nontender to palpation, no guarding, no appreciable organomegaly Ext: no gross muscle atrophy, no edema, no contractures Neuro: CN II-XI grossly intact, no focal neuro deficits Psych: Alert, oriented, appropriate affect Leukocytosis, Anemia, and Thrombocytopenia - transfuse 1 additional unit pRBC, had already been transfused 1 unit. and repeat CBC - Oncology recs: Await results of Bone marrow biopsy concern for her AML versus advanced MDS - smear with immature precursor cells - follow CBC and transfuse as indicated. - folate, TSH, B12 normal, iron studies and ferritin elevated - suspect d-dimer elevation due to inflammation and not reflective of pulmonary embolism Diabetes mellitus type 2 newly discovered -Hemoglobin A1c 6.5 -adult educator -Case management to arrange for a glucometer on discharge -She'll be going home on diet control. Fever/SIRS - Likely B symptoms - UTI ruled out - CXR negative - blood cultures pending Anxiety - paxil DVT prophylaxis: SCDs Discussed with: patient, nursing Anticipated discharge: 4-[address]: home A total of 35 minutes was spent on the care of this complex patient more than 50% of the time was spent in counseling and care coordination Objective - Vital Signs Vital signs: Vital Signs Temp 98.8 F 06/22/21 16:37 Pulse 97 06/22/21 12:22 Resp 18 06/22/21 12:22 BP 117/72 06/22/21 12:22 Pulse Ox 98 06/22/21 12:22 Intake & Output 06/21/21 06/22/21 06/22/21 18:59 06:59 18:59 Intake Total 1900 290 310 Balance 1900 290 310 Weight 83.461 kg Intake: IV 300 Intake, IV Titration 100 Amount cefTRIAXone 1 gm In 100 Sodium Chloride 0.9% 50 ml @ 100 mls/hr IVPB Q24H [facility] Rx#:[id number] Oral 1500 290 Blood Product 310 Rc Irr As1 Unit 310 [id number] Other: Voiding Method Toilet # Voids 3 2 1 - Labs CBC & Chem 7: 06/22/21 05:02 06/21/21 11:47 Labs: Abnormal Lab Results - Last 24 Hours (Table) 06/20/21 06/21/21 06/22/21 Range/Units 05:02 17:02 05:02 RBC 1.79 L (3.80-5.40) m/uL Hgb 6.3 L* (11.4-16.0) gm/dL Hct 18.7 L* (34.0-46.0) % MCV 104.7 H (80.0-100.0) fL MCH 35.3 H (25.0-35.0) pg RDW 19.8 H (11.5-15.5) % Plt Count 28 L (150-450) k/uL Neutrophils # (Manual) 1.15 L (1.3-7.7) k/uL Monocytes # (Manual) 1.55 H (0-1.0) k/uL Macrocytosis Marked A POC Glucose (mg/dL) 185 H (75-99) mg/dL Crossmatch See Detail 06/22/21 Range/Units 07:19 RBC (3.80-5.40) m/uL Hgb (11.4-16.0) gm/dL Hct (34.0-46.0) % MCV (80.0-100.0) fL MCH (25.0-35.0) pg RDW (11.5-15.5) % Plt Count (150-450) k/uL Neutrophils # (Manual) (1.3-7.7) k/uL Monocytes # (Manual) (0-1.0) k/uL Macrocytosis POC Glucose (mg/dL) 119 H (75-99) mg/dL Crossmatch Microbiology - Last 24 Hours (Table) 06/19/21 17:31 Blood Culture - Preliminary Blood No Growth after 48 hours 06/19/21 17:31 Blood Culture - Preliminary Blood No Growth after 48 hours
--- NOTE | 2021-06-22 17:20 | P.PN ---
Subjective Progress Note Date: 06/22/21 Principal diagnosis: AML In follow-up today patient has no physical complaints that are progressive or new. Energy levels are low. She denies overt bleeding, fevers Objective - Vital Signs Vital signs: Vital Signs Temp 98.8 F 06/22/21 16:37 Pulse 97 06/22/21 12:22 Resp 18 06/22/21 12:22 BP 117/72 06/22/21 12:22 Pulse Ox 98 06/22/21 12:22 Intake & Output 06/21/21 06/22/21 06/22/21 18:59 06:59 18:59 Intake Total 1900 290 310 Balance 1900 290 310 Weight 83.461 kg Intake: IV 300 Intake, IV Titration 100 Amount cefTRIAXone 1 gm In 100 Sodium Chloride 0.9% 50 ml @ 100 mls/hr IVPB Q24H [facility] Rx#:[id number] Oral 1500 290 Blood Product 310 Rc Irr As1 Unit 310 [id number] Other: Voiding Method Toilet # Voids 3 2 1 - Constitutional General appearance: Present: average body habitus, cooperative, no acute distress - EENT Eyes: Present: anicteric sclerae, EOMI ENT: Present: hearing grossly normal, normal oropharynx - Respiratory Respiratory: bilateral: CTA - Cardiovascular Rhythm: regular Heart sounds: normal: S1, S2 Abnormal Heart Sounds: Absent: systolic murmur, diastolic murmur, rub, S3 Gallop, S4 Gallop, click, other - Peripheral edema leg Peripheral Edema: bilateral: None - Gastrointestinal General gastrointestinal: Present: normal bowel sounds, soft - Integumentary Integumentary: Present: normal turgor, pale - Neurologic Neurologic: Present: CNII-XII intact - Musculoskeletal Musculoskeletal: Present: strength equal bilaterally - Psychiatric Psychiatric: Present: A&O x's 3, appropriate affect, intact judgment & insight - Labs CBC & Chem 7: 06/22/21 05:02 06/21/21 11:47 Labs: Abnormal Lab Results - Last 24 Hours (Table) 06/20/21 06/22/21 06/22/21 Range/Units 05:02 05:02 07:19 RBC 1.79 L (3.80-5.40) m/uL Hgb 6.3 L* (11.4-16.0) gm/dL Hct 18.7 L* (34.0-46.0) % MCV 104.7 H (80.0-100.0) fL MCH 35.3 H (25.0-35.0) pg RDW 19.8 H (11.5-15.5) % Plt Count 28 L (150-450) k/uL Neutrophils # (Manual) 1.15 L (1.3-7.7) k/uL Monocytes # (Manual) 1.55 H (0-1.0) k/uL Macrocytosis Marked A POC Glucose (mg/dL) 119 H (75-99) mg/dL Crossmatch See Detail Microbiology - Last 24 Hours (Table) 06/19/21 17:31 Blood Culture - Preliminary Blood No Growth after 48 hours 06/19/21 17:31 Blood Culture - Preliminary Blood No Growth after 48 hours Assessment and Plan (1) AML (acute myeloid leukemia) Narrative/Plan: When seen this morning explained to patient that echo was going to be ordered for baseline because cardiotoxic treatment. PICC line insertion ordered. Dr. Forte was contacted by Pathology with a diagnosis of acute myeloid leukemia, pending cytogenetics. I contacted patient and her to told him of the diagnosis. With acute leukemia recommendation is for induction with 7+3 regimen, 3 weeks after in duction patient will have a repeat bone marrow to determine if she has had a partial response or complete response. Based on cytogenetics and/or response to induction patient will either continue on to consolidation treatment or she may be referred for bone marrow transplant. Patient and had concerns about son's wedding on August 12. They're wanting to possibly delay treatment or see if there are other options for treatment. Dr. Forte will speak with the patient and her personally later today to go over again diagnosis, prognosis and treatment options in further detail and answered their questions regarding other treatment options more specifically. Current Visit: Yes Status: Acute Priority: High Code(s): C92.00 - ACUTE MYELOBLASTIC LEUKEMIA, NOT HAVING ACHIEVED REMISSION SNOMED Code(s): 12443592 Plan: Chemotherapy orders have been written and sent to the unit and pharmacy. Nursing on the Oncology unit has been informed of possible 7 day chemotherapy Supportive medications have been ordered Encourage frequent ambulation Uric Acid Daily CBC, CMP Conservative transfusions, irradiated blood products CMV status on patient Doctor attests: I performed a history and physical examination of this patient, developed impression and plan of care, discussed with dictator. I agree with dictators note, documented as a scribe. Time with Patient: Greater than 30
[2021-06-22] MEDS: SALT AND SODA MOUTHWASH 1,000 ML PO SCH ×2 (20:08→23:06)
[2021-06-23] MEDS: SODIUM CHLORIDE 0.9% 1,000 ML IV SCH ×3 (03:28→17:58)
[2021-06-23] MEDS: SALT AND SODA MOUTHWASH 1,000 ML PO SCH ×3 (05:44→16:58)
[2021-06-23 06:15] LABS: Anisocytosis Slight; HGB 7.6 gm/dL (11.4-16.0); Macrocytosis Moderate; Mean Platelet Volume 8.9; RDW 19.9 % (11.5-15.5); WBC 4.3 k/uL (3.8-10.6)
[2021-06-23 06:22] LABS: Platelet Count 34 k/uL (150-450)
[2021-06-23 06:54] LABS: Lymphocytes # (M) 1.98 k/uL (1.0-4.8); Monocytes # (M) 1.03 k/uL (0-1.0); Neutrophils # (M) 1.29 k/uL (1.3-7.7); Neutrophils % (M) 30 %; Nucleated Red Blood Cells 0 /100 WBC (0-0); Total Cells Counted 100
[2021-06-23 07:26] LABS: Glucose,Whole Blood 109 mg/dL (75-99)
[2021-06-23] MEDS: PARoxetine 10 MG TAB PO SCH (08:29)
--- NOTE | 2021-06-23 11:51 | ECHOF ---
Referral Reason:baseline, cardiotoxic chemotherapy planned MEASUREMENTS -------- HEIGHT: 162.6 cm WEIGHT: 83.5 kg BP: RVIDd: 2.8 cm (< 3.3) IVSd: 1.4 cm (0.6 - 1.1) LVIDd: 2.6 cm (3.9 - 5.3) LVPWd: 1.5 cm (0.6 - 1.1) IVSs: 1.9 cm LVIDs: 2.1 cm LVPWs: 1.9 cm LAESV Index (A-L): 28.49 ml/m Ao Diam: 2.7 cm (2.0 - 3.7) AV Cusp: 1.7 cm (1.5 - 2.6) LA Diam: 3.1 cm (2.7 - 3.8) MV EXCURSION: 18.048 mm (> 18.000) MV EF SLOPE: 60 mm/s (70 - 150) EPSS: 0.7 cm MV E Jose: 0.97 m/s MV DecT: 126 ms MV A Jose: 1.32 m/s MV E/A Ratio: 0.74 AV maxP.44 mmHg AV meanP.55 mmHg RAP: 5.00 mmHg RVSP: 15.17 mmHg FINDINGS -------- Resting tachycardia (HR>100bpm). This was a technically good study. The left ventricular size is normal. There is moderate concentric left ventricular hypertrophy. O verall left ventricular systolic function is normal with, an EF between 55 - 60 %. The diastolic fi lling pattern is normal for the age of the patient {E/E'}. The right ventricle is normal in size. The left atrial size is normal. Normal LA size by volume 22+/-6 ml/m2. The right atrial size is normal. The aortic valve is trileaflet and appears structurally normal. Peak/mean gradient across the Aorti c Valve is 17.44mmHg / 9.55mmHg. The mitral valve is normal. There is trace mitral regurgitation. The tricuspid valve appears structurally normal. Trace tricuspid regurgitation present. Right radha tricular systolic pressure is normal at < 35 mmHg. There is no pulmonic regurgitation present. The aortic root size is normal. Normal inferior vena cava with normal inspiratory collapse consistent with estimated right atrial pre ssure of 5 mmHg. There is no pericardial effusion. CONCLUSIONS -------- 1. Resting tachycardia (HR>100bpm). 2. The left ventricular size is normal. 3. There is moderate concentric left ventricular hypertrophy. 4. Overall left ventricular systolic function is normal with, an EF between 55 - 60 %. 5. The diastolic filling pattern is normal for the age of the patient {E/E'} 6. Peak/mean gradient across the Aortic Valve is 17.44mmHg / 9.55mmHg. 7. There is trace mitral regurgitation. 8. Trace tricuspid regurgitation present. 9. There is no pericardial effusion. CARTOGRAPHIC ENGINEER: Shayna Tom RDCS
[2021-06-23] MEDS ORDERED: LIDOCAINE 1% INJ 10MG/ML (20 ML MDV) ONE (13:11)
[2021-06-23] MEDS ORDERED: LIDOCAINE 1% INJ 10MG/ML (20 ML MDV) SQ ONE (13:23)
--- NOTE | 2021-06-23 14:45 | IR ---
PICC LINE PLACEMENT: HISTORY: Infection requiring long-term antibiotic therapy PROCEDURE: Ultrasound and fluoroscopic guidance of PICC line placement. COMPLICATIONS: None ANESTHESIA: 1. 1% Lidocaine locally. FINDINGS/TECHNIQUE: The procedure was explained to the patient. The risks, complications, benefits and alternatives were discussed and any questions were answered. Informed consent was obtained. The patient was placed supine on the fluoroscopic table and prepped and draped in the usual sterile fash ion. Utilizing a 21 gauge needle and sonographic and fluoroscopic guidance, access in the right bas ilic vein was achieved and there is placement of a 0.018 guidewire. The vein is patent. A 4-F sheat h was placed over the guidewire. The guidewire and dilator were removed and a 4-F. PICC line was christofer laura through the sheath with the tip at the level of the SVC. The sheath was removed, the catheter wa s flushed and sutured into position. The patient was stable throughout the procedure and remained st able upon discharge from the Department of Radiology. The vein puncture was patent under ultrasound. A duran scale image was obtained to document patency of the vein punctured. All elements of the maximal barrier technique were utilized. Submitted FLUOROSCOPY TIME: 0.1 minutes and 1 image IMPRESSION: Successful PICC line placement under ultrasound and fluoroscopic guidance.
[2021-06-23] MEDS ORDERED: ONDANSETRON 4 MG/2 ML VIAL IVP PRN (15:58)
--- NOTE | 2021-06-23 16:40 | P.PN ---
Subjective Progress Note Date: 06/23/21 (delayed charting seen at 0930) Principal diagnosis: fevers Patient is a 61 yo CF with a hx of thrombocytopenia recently discovered, arthritis, and anxiety who was sent in by Dr. Forte due to fever and worsening thrombocytopenia. She underwent an extensive evaluation in the emergency department. She was found to have anemia, thrombocytopenia, and mild leukocytosis. Her urinalysis was not consistent with infection but was more concerning for dehydration. Chest x-ray showed no acute process. She was started on rocephin for possible UTI and arrangement were made of admission. She was seen by Oncology and underwent bone marrow biopsy on 06/21. Fevers may possibly be a B symptom. 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 Patient seen and examined at bedside filling okay. His accepting her diagnosis but still feels initiated shock. No chest pain, shortness of breath, or nausea. Children at bedside. All questions answered. General: non toxic , no distress, appears at stated age Derm: + several small bruises on lower extremities, warm, dry Head: atraumatic, normocephalic, symmetric Eyes: EOMI, no lid lag, anicteric sclera Mouth: no lip lesion, mucus membranes moist Cardiovascular: S1S2 tachycardic with diastolic murmur, positive posterior tibial pulse bilateral, Lungs: CTA bilateral, no rhonchi, no rales , no accessory muscle use Abdominal: soft, nontender to palpation, no guarding, no appreciable organomegaly Ext: no gross muscle atrophy, no edema, no contractures Neuro: CN II-XI grossly intact, no focal neuro deficits Psych: Alert, oriented, appropriate affect Acute myelogenous leukemia Leukocytosis, Anemia, and Thrombocytopenia -Status post 2 units of packed red blood cells -Continue to monitor CBC transfuse as indicated. - Oncology recs: PICC line today and then start induction chemotherapy. - smear with immature precursor cells - folate, TSH, B12 normal, iron studies and ferritin elevated - suspect d-dimer elevation due to inflammation and not reflective of pulmonary embolism Diabetes mellitus type 2 newly discovered -Hemoglobin A1c 6.5 -certified adaptive physical educator -Case management to arrange for a glucometer on discharge -She'll be going home on diet control. Fever/SIRS - B symptoms - UTI ruled out - CXR negative - blood cultures pending Anxiety - paxil DVT prophylaxis: SCDs Discussed with: patient, nursing Anticipated discharge: [address]: home A total of 35 minutes was spent on the care of this complex patient more than 50% of the time was spent in counseling and care coordination Objective - Vital Signs Vital signs: Vital Signs Temp 99.3 F 06/23/21 12:25 Pulse 97 06/23/21 12:25 Resp 16 06/23/21 12:25 BP 123/79 06/23/21 12:25 Pulse Ox 97 06/23/21 12:25 Intake & Output 06/22/21 06/23/21 06/23/21 18:59 06:59 18:59 Intake Total 310 1900 Balance 310 1900 Weight 83.461 kg Intake: Intake, IV Titration 1500 Amount Sodium Chloride 0.9% 1, 1500 000 ml @ 130 mls/hr IV . Q7H42M [facility] Rx#:[id number] Oral 400 Blood Product 310 Rc Irr As1 Unit 310 [id number] Other: Voiding Method Toilet # Voids 4 4 2 - Labs CBC & Chem 7: 06/23/21 05:11 06/21/21 11:47 Labs: Abnormal Lab Results - Last 24 Hours (Table) 06/23/21 06/23/21 Range/Units 05:11 07:24 RBC 2.10 L (3.80-5.40) m/uL Hgb 7.6 L (11.4-16.0) gm/dL Hct 21.0 L (34.0-46.0) % MCH 36.0 H (25.0-35.0) pg RDW 19.9 H (11.5-15.5) % Plt Count 34 L (150-450) k/uL Neutrophils # (Manual) 1.29 L (1.3-7.7) k/uL Monocytes # (Manual) 1.03 H (0-1.0) k/uL POC Glucose (mg/dL) 109 H (75-99) mg/dL Microbiology - Last 24 Hours (Table) 06/19/21 17:31 Blood Culture - Preliminary Blood No Growth after 72 hours 06/19/21 17:31 Blood Culture - Preliminary Blood No Growth after 72 hours
[2021-06-23] MEDS: allopurinoL 300 MG TAB PO SCH (16:58)
[2021-06-23] MEDS: ONDANSETRON 16 MG in SODIUM CHLORIDE 0.9% 50 ML IVPB SCH (19:56)
[2021-06-23] MEDS: FAMOTIDINE 20 MG/2 ML VIAL IV SCH (19:57)
[2021-06-23] MEDS: DEXAMETHASONE SOD PHOSPHATE 10 MG/ML 1 ML VIAL IV SCH (19:57)
--- NOTE | 2021-06-23 21:02 | P.PN ---
Subjective Progress Note Date: 06/23/21 Principal diagnosis: New Acute Leukemia Plan for Induction therapy to start this weekend. Objective - Vital Signs Vital signs: Vital Signs Temp 99.3 F 06/23/21 12:25 Pulse 97 06/23/21 12:25 Resp 16 06/23/21 12:25 BP 123/79 06/23/21 12:25 Pulse Ox 97 06/23/21 12:25 Intake & Output 06/22/21 06/23/21 06/23/21 18:59 06:59 18:59 Intake Total 310 1900 Balance 310 1900 Weight 83.461 kg Intake: Intake, IV Titration 1500 Amount Sodium Chloride 0.9% 1, 1500 000 ml @ 130 mls/hr IV . Q7H42M ANJ[facility] Rx#:[id number] Oral 400 Blood Product 310 Rc Irr As1 Unit 310 [id number] Other: Voiding Method Toilet # Voids 4 4 - Exam - Constitutional General appearance: Present: average body habitus, cooperative, no acute distress - EENT Eyes: Present: anicteric sclerae, EOMI ENT: Present: hearing grossly normal, normal oropharynx - Respiratory Respiratory: bilateral: CTA - Cardiovascular Rhythm: regular Heart sounds: normal: S1, S2 Abnormal Heart Sounds: Absent: systolic murmur, diastolic murmur, rub, S3 Gallop, S4 Gallop, click, other - Peripheral edema leg Peripheral Edema: bilateral: None - Gastrointestinal General gastrointestinal: Present: normal bowel sounds, soft - Integumentary Integumentary: Present: normal turgor, pale - Neurologic Neurologic: Present: CNII-XII intact - Musculoskeletal Musculoskeletal: Present: strength equal bilaterally - Psychiatric Psychiatric: Present: A&O x's 3, appropriate affect, intact judgment & insight - Labs CBC & Chem 7: 06/23/21 05:11 06/21/21 11:47 Labs: Abnormal Lab Results - Last 24 Hours (Table) 06/23/21 06/23/21 Range/Units 05:11 07:24 RBC 2.10 L (3.80-5.40) m/uL Hgb 7.6 L (11.4-16.0) gm/dL Hct 21.0 L (34.0-46.0) % MCH 36.0 H (25.0-35.0) pg RDW 19.9 H (11.5-15.5) % Plt Count 34 L (150-450) k/uL Neutrophils # (Manual) 1.29 L (1.3-7.7) k/uL Monocytes # (Manual) 1.03 H (0-1.0) k/uL POC Glucose (mg/dL) 109 H (75-99) mg/dL Microbiology - Last 24 Hours (Table) 06/19/21 17:31 Blood Culture - Preliminary Blood No Growth after 72 hours 06/19/21 17:31 Blood Culture - Preliminary Blood No Growth after 72 hours Assessment and Plan Plan: AML (acute myeloid leukemia) Narrative/Plan: AML per discussion with pathology, awaiting cytogenetics. In the interim will proceed with 7+3 induction treatment Discussed in detail with patient and Daily labs and aggressive supportive care Irradiated blood products CMV status is neg Current Visit: Yes Status: Acute Priority: High Code(s): C92.00 - ACUTE MYELOBLASTIC LEUKEMIA, NOT HAVING ACHIEVED REMISSION SNOMED Code(s): 00155447 Plan: Induction to begin this weekend Echo complete Tele for 24 hours Supportive medications to continue pr Encourage frequent ambulation Uric Acid Daily CBC, CMP Physician Attest: I have completed the full history and physical and developed the completed impression and plan, agree with dictation, dictated as a scribe.
[2021-06-23] MEDS: IDARUBICIN HCL IV SCH ×2 (21:20)
[2021-06-23] MEDS: CYTARABINE IV SCH (21:42)
[2021-06-23] MEDS: SODIUM CHLORIDE 0.9% IV SCH (21:42)
[2021-06-24] MEDS: SALT AND SODA MOUTHWASH 1,000 ML PO SCH ×6 (02:20→23:56)
[2021-06-24 05:53] LABS: African American GFR (CKD) 109.1 (60.0-200.0); Albumin 3.4 g/dL (3.80-4.90); Albumin/Globulin Ratio 1.03 (1.60-3.17); Anion Gap 9.5 mmol/L (4.00-12.00); BUN/Creat Ratio 8.57 Ratio (12.00-20.00); Calcium 8.2 mg/dL (8.7-10.3); Carbon Dioxide 22.5 mmol/L (21.6-31.8); Globulin 3.3 g/dL (1.6-3.3); Non-African American GFR(CKD) 94.2 (60.0-200.0); Potassium 3.4 mmol/L (3.5-5.5); Total Bilirubin 0.5 mg/dL (0.3-1.2); Total Protein 6.7 g/dL (6.2-8.2); Uric Acid 4.2 mg/dL (2.9-7.7)
[2021-06-24 07:15] LABS: Anisocytosis Slight; HCT 20.9 % (34.0-46.0); HGB 7.2 gm/dL (11.4-16.0); MCH 35.3 pg (25.0-35.0); MCHC 34.7 g/dL (31.0-37.0); MCV 101.6 fL (80.0-100.0); Macrocytosis Moderate; Mean Platelet Volume 10.6; Platelet Count 27 k/uL (150-450); RBC 2.05 m/uL (3.80-5.40); RDW 19.4 % (11.5-15.5)
[2021-06-24 07:19] LABS: Glucose,Whole Blood 145 mg/dL (75-99)
[2021-06-24 07:28] LABS: INR 1.1 (<1.2); Partial Thromboplastin Time 22.4 sec (22.0-30.0); Prothrombin Time 11.3 sec (9.0-12.0)
[2021-06-24] MEDS: allopurinoL 300 MG TAB PO SCH (09:29)
[2021-06-24] MEDS: PARoxetine 10 MG TAB PO SCH (09:29)
[2021-06-24] MEDS: SODIUM CHLORIDE 0.9% 1,000 ML IV SCH ×2 (09:30→15:25)
[2021-06-24 10:21] LABS: Lymphocytes # (M) 0.87 k/uL (1.0-4.8); Monocytes # (M) 0.78 k/uL (0-1.0); Neutrophils # (M) 1.38 k/uL (1.3-7.7); Neutrophils % (M) 46 %; Nucleated Red Blood Cells 1 /100 WBC (0-0); Total Cells Counted 200
--- NOTE | 2021-06-24 11:22 | P.PN ---
Subjective Progress Note Date: 06/24/21 Principal diagnosis: AML Started 7+3 last night. Tolerating well without side effects. Objective - Vital Signs Vital signs: Vital Signs Temp 98 F 06/24/21 05:00 Pulse 96 06/24/21 08:35 Resp 16 06/24/21 08:35 BP 110/66 06/24/21 05:00 Pulse Ox 99 06/24/21 05:00 Intake & Output 06/23/21 06/24/21 06/24/21 18:59 06:59 18:59 Other: Voiding Method Toilet Toilet # Voids 2 - Exam Gen.: No acute distress. HEENT: No scleral icterus. Neck: Supple. Lungs: No respiratory distress. Heart: Regular rate. Abdomen: Soft. MSK: No obvious of her extremity deformities. Neuro: Alert and oriented x3. Skin: No jaundice. Psych: Appropriate affect. - Labs CBC & Chem 7: 06/24/21 06:47 06/23/21 14:16 Labs: Abnormal Lab Results - Last 24 Hours (Table) 06/23/21 06/24/21 06/24/21 Range/Units 14:16 06:47 07:14 WBC 3.0 L (3.8-10.6) k/uL RBC 2.05 L (3.80-5.40) m/uL Hgb 7.2 L (11.4-16.0) gm/dL Hct 20.9 L (34.0-46.0) % MCV 101.6 H (80.0-100.0) fL MCH 35.3 H (25.0-35.0) pg RDW 19.4 H (11.5-15.5) % Plt Count 27 L (150-450) k/uL Lymphocytes # (Manual) 0.87 L (1.0-4.8) k/uL Nucleated RBCs 1 H (0-0) /100 WBC Potassium 3.4 L (3.5-5.5) mmol/L BUN 6.0 L (9.0-27.0) mg/dL BUN/Creatinine Ratio 8.57 L (12.00-20.00) Ratio Glucose 149 H (70-110) mg/dL POC Glucose (mg/dL) 145 H (75-99) mg/dL Calcium 8.2 L (8.7-10.3) mg/dL Lactate Dehydrogenase 347 H (120-246) U/L Albumin 3.40 L (3.80-4.90) g/dL Albumin/Globulin Ratio 1.03 L (1.60-3.17) g/dL Microbiology - Last 24 Hours (Table) 06/19/21 17:31 Blood Culture - Preliminary Blood No Growth after 96 hours 06/19/21 17:31 Blood Culture - Preliminary Blood No Growth after 96 hours Assessment and Plan Assessment: 1. AML 2. Pancytopenia due to AML Plan: Ms. Perrin is a very pleasant 61-year-old female who is here with newly found AML, started on 7+3 yesterday. So far tolerating this very well. Today is day 2. Continue with chemotherapy. Monitor for tumor lysis. Monitor CBC and supportive transfusion for hemoglobin less than 7 and platelets less than 15. No transfusions needed today. Discussed with patient detail and she is agreeable to the plan. All of her questions were answered.
[2021-06-24 12:02] LABS: Glucose,Whole Blood 128 mg/dL (75-99)
[2021-06-24] MEDS: INSULIN ASPART (NovoLOG) 100 UNIT/ML VIAL SQ SCH ×2 (12:27→17:15)
--- NOTE | 2021-06-24 15:17 | P.PN ---
Subjective Progress Note Date: 06/24/21 (delayed charting seen at 0930) Principal diagnosis: fevers Patient is a 61 yo CF with a hx of thrombocytopenia recently discovered, arthritis, and anxiety who was sent in by Dr. Forte due to fever and worsening thrombocytopenia. She underwent an extensive evaluation in the emergency department. She was found to have anemia, thrombocytopenia, and mild leukocytosis. Her urinalysis was not consistent with infection but was more concerning for dehydration. Chest x-ray showed no acute process. She was started on rocephin for possible UTI and arrangement were made of admission. She was seen by Oncology and underwent bone marrow biopsy on 06/21. Fevers may possibly be a B symptom. 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 PICC line was placed on 06/23 and she was started on chemotherapy 7+3. Patient seen and examined at bedside. Doing okay. No nausea or vomiting yesterday. No cough. It did feel somewhat congested this morning which cleared after moving around. General: non toxic , no distress, appears at stated age Derm: + several small bruises on lower extremities, warm, dry Head: atraumatic, normocephalic, symmetric Eyes: EOMI, no lid lag, anicteric sclera Mouth: no lip lesion, mucus membranes moist Cardiovascular: S1S2 tachycardic with diastolic murmur, positive posterior tibial pulse bilateral, Lungs: CTA bilateral, no rhonchi, no rales , no accessory muscle use Abdominal: soft, nontender to palpation, no guarding, no appreciable organome patt Ext: no gross muscle atrophy, no edema, no contractures Neuro: CN II-XI grossly intact, no focal neuro deficits Psych: Alert, oriented, appropriate affect Acute myelogenous leukemia Leukocytosis, Anemia, and Thrombocytopenia -Status post 2 units of packed red blood cells -Continue to monitor CBC transfuse as indicated. - Oncology recs: PICC placed on induction chemotherapy started on 06/23/21 - smear with immature precursor cells - folate, TSH, B12 normal, iron studies and ferritin elevated - suspect d-dimer elevation due to inflammation and not reflective of pulmonary embolism Diabetes mellitus type 2 newly discovered -Hemoglobin A1c 6.5 -Due to need for steroids with chemotherapeutic regimen will resume sliding scale insulin and close blood glucose monitoring. 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 Fever/SIRS - B symptoms - UTI ruled out - CXR negative - blood cultures pending Anxiety - paxil DVT prophylaxis: SCDs Discussed with: patient, nursing Anticipated discharge: [address]: home A total of 35 minutes was spent on the care of this complex patient more than 50% of the time was spent in counseling and care coordination Objective - Vital Signs Vital signs: Vital Signs Temp 98.6 F 06/24/21 12:00 Pulse 103 H 06/24/21 12:00 Resp 16 06/24/21 12:00 BP 124/71 06/24/21 12:00 Pulse Ox 99 06/24/21 12:00 Intake & Output 06/23/21 06/24/21 06/24/21 18:59 06:59 18:59 Other: Voiding Method Toilet Toilet # Voids 2 - Labs CBC & Chem 7: 06/24/21 06:47 06/23/21 14:16 Labs: Abnormal Lab Results - Last 24 Hours (Table) 06/23/21 06/24/21 06/24/21 Range/Units 14:16 06:47 07:14 WBC 3.0 L (3.8-10.6) k/uL RBC 2.05 L (3.80-5.40) m/uL Hgb 7.2 L (11.4-16.0) gm/dL Hct 20.9 L (34.0-46.0) % MCV 101.6 H (80.0-100.0) fL MCH 35.3 H (25.0-35.0) pg RDW 19.4 H (11.5-15.5) % Plt Count 27 L (150-450) k/uL Lymphocytes # (Manual) 0.87 L (1.0-4.8) k/uL Nucleated RBCs 1 H (0-0) /100 WBC Potassium 3.4 L (3.5-5.5) mmol/L BUN 6.0 L (9.0-27.0) mg/dL BUN/Creatinine Ratio 8.57 L (12.00-20.00) Ratio Glucose 149 H (70-110) mg/dL POC Glucose (mg/dL) 145 H (75-99) mg/dL Calcium 8.2 L (8.7-10.3) mg/dL Lactate Dehydrogenase 347 H (120-246) U/L Albumin 3.40 L (3.80-4.90) g/dL Albumin/Globulin Ratio 1.03 L (1.60-3.17) g/dL 06/24/21 Range/Units 12:00 WBC (3.8-10.6) k/uL RBC (3.80-5.40) m/uL Hgb (11.4-16.0) gm/dL Hct (34.0-46.0) % MCV (80.0-100.0) fL MCH (25.0-35.0) pg RDW (11.5-15.5) % Plt Count (150-450) k/uL Lymphocytes # (Manual) (1.0-4.8) k/uL Nucleated RBCs (0-0) /100 WBC Potassium (3.5-5.5) mmol/L BUN (9.0-27.0) mg/dL BUN/Creatinine Ratio (12.00-20.00) Ratio Glucose (70-110) mg/dL POC Glucose (mg/dL) 128 H (75-99) mg/dL Calcium (8.7-10.3) mg/dL Lactate Dehydrogenase (120-246) U/L Albumin (3.80-4.90) g/dL Albumin/Globulin Ratio (1.60-3.17) g/dL Microbiology - Last 24 Hours (Table) 06/19/21 17:31 Blood Culture - Preliminary Blood No Growth after 96 hours 06/19/21 17:31 Blood Culture - Preliminary Blood No Growth after 96 hours
[2021-06-24 16:19] LABS: Magnesium 1.9 mg/dL (1.5-2.4); Phosphorus 4.5 mg/dL (2.4-5.1); Uric Acid 3.4 mg/dL (2.9-7.7)
[2021-06-24 16:20] LABS: African American GFR (CKD) 92.9 (60.0-200.0); Albumin 3.2 g/dL (3.80-4.90); Albumin/Globulin Ratio 0.91 (1.60-3.17); Anion Gap 4.4 mmol/L (4.00-12.00); BUN/Creat Ratio 11.25 Ratio (12.00-20.00); Calcium 8.3 mg/dL (8.7-10.3); Carbon Dioxide 27.6 mmol/L (21.6-31.8); Globulin 3.5 g/dL (1.6-3.3); Non-African American GFR(CKD) 80.1 (60.0-200.0); Potassium 4.1 mmol/L (3.5-5.5); Total Bilirubin 0.5 mg/dL (0.2-1.2); Total Protein 6.7 g/dL (6.2-8.2)
[2021-06-24 17:05] LABS: Glucose,Whole Blood 129 mg/dL (75-99)
[2021-06-24 20:29] LABS: Glucose,Whole Blood 177 mg/dL (75-99)
[2021-06-24] MEDS: ONDANSETRON 16 MG in SODIUM CHLORIDE 0.9% 50 ML IVPB SCH (20:31)
[2021-06-24] MEDS: DEXAMETHASONE SOD PHOSPHATE 10 MG/ML 1 ML VIAL IV SCH (20:31)
[2021-06-24] MEDS: FAMOTIDINE 20 MG/2 ML VIAL IV SCH (20:31)
[2021-06-24] MEDS: IDARUBICIN HCL IV SCH ×2 (21:02)
[2021-06-24] MEDS: CYTARABINE IV SCH (21:02)
[2021-06-24] MEDS: SODIUM CHLORIDE 0.9% IV SCH (21:02)
[2021-06-25] MEDS: SALT AND SODA MOUTHWASH 1,000 ML PO SCH ×4 (04:40→20:03)
[2021-06-25] MEDS: SODIUM CHLORIDE 0.9% 1,000 ML IV SCH ×2 (04:40→09:16)
[2021-06-25 05:52] LABS: Anisocytosis Slight; MCH 36.1 pg (25.0-35.0); MCHC 35.2 g/dL (31.0-37.0); MCV 102.5 fL (80.0-100.0); Macrocytosis Moderate; Platelet Count 27 k/uL (150-450); RBC 1.81 m/uL (3.80-5.40); RDW 17.8 % (11.5-15.5)
[2021-06-25 05:58] LABS: HCT 18.5 % (34.0-46.0); HGB 6.5 gm/dL (11.4-16.0)
[2021-06-25 06:02] LABS: Magnesium 2.1 mg/dL (1.6-2.3); Phosphorus 4.6 mg/dL (2.5-4.5); Uric Acid 3.3 mg/dL (3.7-7.4)
[2021-06-25 06:03] LABS: ALT 29 U/L (4-34); AST 36 U/L (14-36); African American GFR (CKD) >90 (>60 ml/min/1.73 sqM); Albumin 2.9 g/dL (3.5-5.0); Albumin/Globulin Ratio 0.9; Alkaline Phosphatase 41 U/L (38-126); Anion Gap 8 mmol/L; Blood Urea Nitrogen 12 mg/dL (7-17); Calcium 7.6 mg/dL (8.4-10.2); Carbon Dioxide 21 mmol/L (22-30); Chloride 111 mmol/L (98-107); Globulin 3.3 g/dL; Glucose 157 mg/dL (74-99); Non-African American GFR(CKD) >90 (>60 ml/min/1.73 sqM); Potassium 4.3 mmol/L (3.5-5.1); Sodium 140 mmol/L (137-145); Total Bilirubin 0.4 mg/dL (0.2-1.3); Total Protein 6.2 g/dL (6.3-8.2)
[2021-06-25 06:37] LABS: Anisocytosis (M) Present; Band Neutrophils % 1 %; Lymphocytes # (M) 0.26 k/uL (1.0-4.8); Monocytes # (M) 0.18 k/uL (0-1.0); Neutrophils % (M) 77 %; Nucleated Red Blood Cells 0 /100 WBC (0-0); Polychromasia Present; Total Cells Counted 100
[2021-06-25 07:09] LABS: Glucose,Whole Blood 155 mg/dL (75-99)
--- NOTE | 2021-06-25 08:30 | P.PN ---
Subjective Progress Note Date: 06/25/21 Principal diagnosis: fevers Patient is a 61 yo CF with a hx of thrombocytopenia recently discovered, arthritis, and anxiety who was sent in by Dr. Forte due to fever and worsening thrombocytopenia. She underwent an extensive evaluation in the emergency department. She was found to have anemia, thrombocytopenia, and mild leukocytosis. Her urinalysis was not consistent with infection but was more concerning for dehydration. Chest x-ray showed no acute process. She was started on rocephin for possible UTI and arrangement were made of admission. She was seen by Oncology and underwent bone marrow biopsy on 06/21. Fevers may possibly be a B symptom. 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 PICC line was placed on 06/23 and she was started on chemotherapy +3. Patient seen and examined at bedside. Again with congestion that improved in the afternoon, no chest pain, no shortness of breath, no mouth sores, no nausea, no diarrhea. General: non toxic , no distress, appears at stated age Derm: + several small bruises on lower extremities, warm, dry Head: atraumatic, normocephalic, symmetric Eyes: EOMI, no lid lag, anicteric sclera Mouth: no lip lesion, mucus membranes moist Cardiovascular: S1S2 tachycardic with diastolic murmur, positive posterior tibial pulse bilateral, Lungs: CTA bilateral, no rhonchi, no rales , no accessory muscle use Abdominal: soft, nontender to palpation, no guarding, no appreciable organomegaly Ext: no gross muscle atrophy, no edema, no contractures Neuro: CN II-XI grossly intact, no focal neuro deficits Psych: Alert, oriented, appropriate affect Acute myelogenous leukemia Leukocytosis, Anemia, and Thrombocytopenia -1 additional unit today, Status post 2 units of packed red blood cells -Continue to monitor CBC transfuse as indicated. 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 Fever/SIRS - B symptoms - UTI ruled out - CXR negative - blood cultures pending Anxiety - paxil DVT prophylaxis: SCDs Discussed with: patient, nursing Anticipated discharge: [address]: home A total of 35 minutes was spent on the care of this complex patient more than 50% of the time was spent in counseling and care coordination Objective - Vital Signs Vital signs: Vital Signs Temp 98.9 F 06/25/21 03:00 Pulse 91 06/25/21 03:00 Resp 18 06/25/21 03:00 BP 120/73 06/25/21 03:00 Pulse Ox 97 06/25/21 03:00 Intake & Output 06/24/21 06/25/21 06/25/21 18:59 06:59 18:59 Intake Total 360 Balance 360 Intake: Oral 360 Other: Voiding Method Toilet Toilet # Voids 3 2 - Labs CBC & Chem 7: 06/25/21 05:28 06/25/21 05:28 Labs: Abnormal Lab Results - Last 24 Hours (Table) 06/24/21 06/24/21 06/24/21 Range/Units 06:47 06:47 12:00 WBC (3.8-10.6) k/uL RBC (3.80-5.40) m/uL Hgb (11.4-16.0) gm/dL Hct (34.0-46.0) % MCV (80.0-100.0) fL MCH (25.0-35.0) pg RDW (11.5-15.5) % Plt Count 27 L (150-450) k/uL Lymphocytes # (Manual) 0.87 L (1.0-4.8) k/uL Nucleated RBCs 1 H (0-0) /100 WBC Chloride (98-107) mmol/L Carbon Dioxide (22-30) mmol/L BUN/Creatinine Ratio 11.25 L (12.00-20.00) Ratio Glucose 143 H (70-110) mg/dL POC Glucose (mg/dL) 128 H (75-99) mg/dL Uric Acid (3.7-7.4) mg/dL Calcium 8.3 L (8.7-10.3) mg/dL Phosphorus (2.5-4.5) mg/dL Lactate Dehydrogenase 312 H (120-246) U/L Total Protein (6.3-8.2) g/dL Albumin 3.20 L (3.80-4.90) g/dL Globulin 3.5 H (1.6-3.3) g/dL Albumin/Globulin Ratio 0.91 L (1.60-3.17) g/dL Crossmatch 06/24/21 06/24/21 06/25/21 Range/Units 16:58 20:27 05:28 WBC 2.0 L (3.8-10.6) k/uL RBC 1.81 L (3.80-5.40) m/uL Hgb 6.5 L* (11.4-16.0) gm/dL Hct 18.5 L* (34.0-46.0) % MCV 102.5 H (80.0-100.0) fL MCH 36.1 H (25.0-35.0) pg RDW 17.8 H (11.5-15.5) % Plt Count 27 L (150-450) k/uL Lymphocytes # (Manual) 0.26 L (1.0-4.8) k/uL Nucleated RBCs (0-0) /100 WBC Chloride (98-107) mmol/L Carbon Dioxide (22-30) mmol/L BUN/Creatinine Ratio (12.00-20.00) Ratio Glucose (70-110) mg/dL POC Glucose (mg/dL) 129 H 177 H (75-99) mg/dL Uric Acid (3.7-7.4) mg/dL Calcium (8.7-10.3) mg/dL Phosphorus (2.5-4.5) mg/dL Lactate Dehydrogenase (120-246) U/L Total Protein (6.3-8.2) g/dL Albumin (3.80-4.90) g/dL Globulin (1.6-3.3) g/dL Albumin/Globulin Ratio (1.60-3.17) g/dL Crossmatch 06/25/21 06/25/21 06/25/21 Range/Units 05:28 05:28 06:58 WBC (3.8-10.6) k/uL RBC (3.80-5.40) m/uL Hgb (11.4-16.0) gm/dL Hct (34.0-46.0) % MCV (80.0-100.0) fL MCH (25.0-35.0) pg RDW (11.5-15.5) % Plt Count (150-450) k/uL Lymphocytes # (Manual) (1.0-4.8) k/uL Nucleated RBCs (0-0) /100 WBC Chloride 111 H (98-107) mmol/L Carbon Dioxide 21 L (22-30) mmol/L BUN/Creatinine Ratio (12.00-20.00) Ratio Glucose 157 H (70-110) mg/dL POC Glucose (mg/dL) (75-99) mg/dL Uric Acid 3.3 L (3.7-7.4) mg/dL Calcium 7.6 L (8.7-10.3) mg/dL Phosphorus 4.6 H (2.5-4.5) mg/dL Lactate Dehydrogenase 728 H (120-246) U/L Total Protein 6.2 L (6.3-8.2) g/dL Albumin 2.9 L (3.80-4.90) g/dL Globulin (1.6-3.3) g/dL Albumin/Globulin Ratio (1.60-3.17) g/dL Crossmatch See Detail 06/25/21 Range/Units 07:05 WBC (3.8-10.6) k/uL RBC (3.80-5.40) m/uL Hgb (11.4-16.0) gm/dL Hct (34.0-46.0) % MCV (80.0-100.0) fL MCH (25.0-35.0) pg RDW (11.5-15.5) % Plt Count (150-450) k/uL Lymphocytes # (Manual) (1.0-4.8) k/uL Nucleated RBCs (0-0) /100 WBC Chloride (98-107) mmol/L Carbon Dioxide (22-30) mmol/L BUN/Creatinine Ratio (12.00-20.00) Ratio Glucose (70-110) mg/dL POC Glucose (mg/dL) 155 H (75-99) mg/dL Uric Acid (3.7-7.4) mg/dL Calcium (8.7-10.3) mg/dL Phosphorus (2.5-4.5) mg/dL Lactate Dehydrogenase (120-246) U/L Total Protein (6.3-8.2) g/dL Albumin (3.80-4.90) g/dL Globulin (1.6-3.3) g/dL Albumin/Globulin Ratio (1.60-3.17) g/dL Crossmatch Microbiology - Last 24 Hours (Table) 06/19/21 17:31 Blood Culture - Preliminary Blood No Growth after 120 hours 06/19/21 17:31 Blood Culture - Preliminary Blood No Growth after 120 hours
[2021-06-25] MEDS: allopurinoL 300 MG TAB PO SCH (09:21)
[2021-06-25] MEDS: PARoxetine 10 MG TAB PO SCH (09:21)
[2021-06-25] MEDS: INSULIN ASPART (NovoLOG) 100 UNIT/ML VIAL SQ SCH ×3 (09:22→17:55)
[2021-06-25 11:42] LABS: Glucose,Whole Blood 208 mg/dL (75-99)
[2021-06-25] MEDS: SODIUM CHLORIDE 0.45% 1,000 ML IV SCH ×2 (12:43→17:56)
[2021-06-25 17:21] LABS: Glucose,Whole Blood 131 mg/dL (75-99)
[2021-06-25] MEDS: FAMOTIDINE 20 MG/2 ML VIAL IV SCH (20:03)
[2021-06-25] MEDS: ONDANSETRON 16 MG in SODIUM CHLORIDE 0.9% 50 ML IVPB SCH (20:03)
[2021-06-25] MEDS: DEXAMETHASONE SOD PHOSPHATE 10 MG/ML 1 ML VIAL IV SCH (20:04)
[2021-06-25] MEDS: CYTARABINE IV SCH (20:04)
[2021-06-25] MEDS: IDARUBICIN HCL IV SCH ×2 (20:04)
[2021-06-25] MEDS: SODIUM CHLORIDE 0.9% IV SCH (20:04)
[2021-06-25 20:05] LABS: Glucose,Whole Blood 155 mg/dL (75-99)
[2021-06-26] MEDS: SODIUM CHLORIDE 0.45% 1,000 ML IV SCH ×3 (00:27→16:10)
[2021-06-26] MEDS: SALT AND SODA MOUTHWASH 1,000 ML PO SCH ×5 (00:27→19:28)
[2021-06-26 07:23] LABS: Glucose,Whole Blood 149 mg/dL (75-99)
[2021-06-26] MEDS: INSULIN ASPART (NovoLOG) 100 UNIT/ML VIAL SQ SCH ×3 (08:10→18:01)
[2021-06-26] MEDS: allopurinoL 300 MG TAB PO SCH (08:10)
[2021-06-26] MEDS: PARoxetine 10 MG TAB PO SCH (08:10)
[2021-06-26 09:14] LABS: Anisocytosis Slight; HCT 20.9 % (34.0-46.0); HGB 7.4 gm/dL (11.4-16.0); MCH 35.4 pg (25.0-35.0); MCHC 35.5 g/dL (31.0-37.0); MCV 99.8 fL (80.0-100.0); Macrocytosis Moderate; Mean Platelet Volume 10.1; RDW 19.8 % (11.5-15.5)
[2021-06-26 09:15] LABS: ALT 66 U/L (4-34); AST 67 U/L (14-36); African American GFR (CKD) >90 (>60 ml/min/1.73 sqM); Albumin 2.9 g/dL (3.5-5.0); Albumin/Globulin Ratio 0.9; Alkaline Phosphatase 55 U/L (38-126); Anion Gap 5 mmol/L; Blood Urea Nitrogen 13 mg/dL (7-17); Calcium 8.2 mg/dL (8.4-10.2); Carbon Dioxide 26 mmol/L (22-30); Chloride 110 mmol/L (98-107); Globulin 3.3 g/dL; Glucose 172 mg/dL (74-99); LDH 672 U/L (313-618); Non-African American GFR(CKD) >90 (>60 ml/min/1.73 sqM); Potassium 4.5 mmol/L (3.5-5.1); Sodium 141 mmol/L (137-145); Total Bilirubin 0.5 mg/dL (0.2-1.3); Total Protein 6.2 g/dL (6.3-8.2); Uric Acid 3.6 mg/dL (3.7-7.4)
[2021-06-26 09:18] LABS: Platelet Count 31 k/uL (150-450); WBC 1.4 k/uL (3.8-10.6)
[2021-06-26 09:51] LABS: Lymphocytes # (M) 0.17 k/uL (1.0-4.8); Monocytes # (M) 0.03 k/uL (0-1.0); Neutrophils % (M) 86 %; Nucleated Red Blood Cells 0 /100 WBC (0-0); Total Cells Counted 100
[2021-06-26 11:38] LABS: Glucose,Whole Blood 104 mg/dL (75-99)
--- NOTE | 2021-06-26 13:05 | P.PN ---
Subjective Progress Note Date: 06/26/21 Principal diagnosis: AML In follow-up today patient has no physical complaints that are progressive or new. Energy levels remain low. No reported fever, cough, oral irritation, N,V, abd pain, cramping, diarrhea, she is walking frequently, drinking plenty of fluids. Objective - Vital Signs Vital signs: Vital Signs Temp 98.8 F 06/26/21 11:36 Pulse 95 06/26/21 11:36 Resp 16 06/26/21 11:36 BP 115/63 06/26/21 11:36 Pulse Ox 98 06/26/21 11:36 Intake & Output 06/25/21 06/26/21 06/26/21 18:59 06:59 18:59 Intake Total 550 2106 Balance 550 2106 Intake: Intake, IV Titration 1746 Amount Cytarabine/Pf 380 mg In 276 Sodium Chloride 0.9% 500 ml 500 ml @ 21.625 mls/hr IV Q24H ANJ[facility] Rx#: [id number] IDArubicin HCL 20 mg 30 IDArubicin HCL 3 mg In Empty Syringe 1 syr @ 138 mls/hr IV Q24H ANJEL Rx#: [id number] Sodium Chloride 0.45% 1, 1440 000 ml @ 120 mls/hr IV . Q8H20M ANJ[facility] Rx#:[id number] Oral 240 360 Blood Product 310 Rc Irr As1 Unit 310 [id number] Other: Voiding Method Toilet Toilet # Voids 1 2 1 - Constitutional General appearance: Present: average body habitus, cooperative, no acute distress - EENT Eyes: Present: anicteric sclerae, EOMI ENT: Present: hearing grossly normal, normal oropharynx - Respiratory Respiratory: bilateral: CTA - Cardiovascular Rhythm: regular Heart sounds: normal: S1, S2 Abnormal Heart Sounds: Absent: systolic murmur, diastolic murmur, rub, S3 G allop, S4 Gallop, click, other - Peripheral edema leg Peripheral Edema: bilateral: None - Gastrointestinal General gastrointestinal: Present: normal bowel sounds, soft - Neurologic Neurologic: Present: CNII-XII intact - Musculoskeletal Musculoskeletal: Present: strength equal bilaterally - Psychiatric Psychiatric: Present: A&O x's 3, appropriate affect, intact judgment & insight - Labs CBC & Chem 7: 06/26/21 08:25 08/02/21 08:25 Labs: Abnormal Lab Results - Last 24 Hours (Table) 06/25/21 06/25/21 06/26/21 Range/Units 17:13 20:04 07:17 WBC (3.8-10.6) k/uL RBC (3.80-5.40) m/uL Hgb (11.4-16.0) gm/dL Hct (34.0-46.0) % MCH (25.0-35.0) pg RDW (11.5-15.5) % Plt Count (150-450) k/uL Neutrophils # (Manual) (1.3-7.7) k/uL Lymphocytes # (Manual) (1.0-4.8) k/uL Chloride (98-107) mmol/L Glucose (74-99) mg/dL POC Glucose (mg/dL) 131 H 155 H 149 H (75-99) mg/dL Uric Acid (3.7-7.4) mg/dL Calcium (8.4-10.2) mg/dL AST (14-36) U/L ALT (4-34) U/L Lactate Dehydrogenase (313-618) U/L Total Protein (6.3-8.2) g/dL Albumin (3.5-5.0) g/dL 06/26/21 06/26/21 06/26/21 Range/Units 08:25 08:25 11:35 WBC 1.4 L* (3.8-10.6) k/uL RBC 2.10 L (3.80-5.40) m/uL Hgb 7.4 L (11.4-16.0) gm/dL Hct 20.9 L (34.0-46.0) % MCH 35.4 H (25.0-35.0) pg RDW 19.8 H (11.5-15.5) % Plt Count 31 L (150-450) k/uL Neutrophils # (Manual) 1.20 L (1.3-7.7) k/uL Lymphocytes # (Manual) 0.17 L (1.0-4.8) k/uL Chloride 110 H (98-107) mmol/L Glucose 172 H (74-99) mg/dL POC Glucose (mg/dL) 104 H (75-99) mg/dL Uric Acid 3.6 L (3.7-7.4) mg/dL Calcium 8.2 L (8.4-10.2) mg/dL AST 67 H (14-36) U/L ALT 66 H (4-34) U/L Lactate Dehydrogenase 672 H (313-618) U/L Total Protein 6.2 L (6.3-8.2) g/dL Albumin 2.9 L (3.5-5.0) g/dL Microbiology - Last 24 Hours (Table) 06/19/21 17:31 Blood Culture - Final Blood No Growth after 144 hours 06/19/21 17:31 Blood Culture - Final Blood No Growth after 144 hours Assessment and Plan (1) AML (acute myeloid leukemia) Narrative/Plan: 7+3 regimen, Day 4/7 for newly diagnosed AML. Cont chemotherapy without adjustment. No evidence of TLS-cont allopurinol for now SCDs, GI prophylaxis Ambulate frequently Diet as tolerated, liberal fluids Cont supportive medications Uric Acid and phos Daily CBC, CMP Conservative transfusions, irradiated blood products CMV status on patient-negative Current Visit: Yes Status: Acute Priority: High Code(s): C92.00 - ACUTE MYELOBLASTIC LEUKEMIA, NOT HAVING ACHIEVED REMISSION SNOMED Code(s): 34010823 Plan: Doctor attests: I performed a history and physical examination of this patient, developed impression and plan of care, discussed with dictator. I agree with dictators note, documented as a scribe.
--- NOTE | 2021-06-26 15:34 | P.PN ---
Subjective Progress Note Date: 06/26/21 (delayed charting seen at 0730) Principal diagnosis: fevers Patient is a 61 yo CF with a hx of thrombocytopenia recently discovered, arthritis, and anxiety who was sent in by Dr. Forte due to fever and worsening thrombocytopenia. She underwent an extensive evaluation in the emergency department. She was found to have anemia, thrombocytopenia, and mild leukocytosis. Her urinalysis was not consistent with infection but was more concerning for dehydration. Chest x-ray showed no acute process. She was started on rocephin for possible UTI and arrangement were made of admission. She was seen by Oncology and underwent bone marrow biopsy on 06/21. Fevers may possibly be a B symptom. 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 PICC line was placed on 06/23 and she was started on chemotherapy 7+3. Patient seen and examined at bedside. no mouth sores, diarrhea, nausea. Tolerating her oral intake well. Still having some cough in the morning. General: non toxic , no distress, appears at stated age Derm: + several small bruises on lower extremities, warm, dry Head: atraumatic, normocephalic, symmetric Eyes: EOMI, no lid lag, anicteric sclera Mouth: no lip lesion, mucus membranes dry Cardiovascular: S1S2 tachycardic with diastolic murmur, positive posterior ti bial pulse bilateral, Lungs: CTA bilateral, no rhonchi, no rales , no accessory muscle use Abdominal: soft, nontender to palpation, no guarding, no appreciable organomegaly Ext: no gross muscle atrophy, no edema, no contractures Neuro: CN II-XI grossly intact, no focal neuro deficits Psych: Alert, oriented, appropriate affect Acute myelogenous leukemia Leukocytosis, Anemia, and Thrombocytopenia -Status post 3 units of packed red blood cells -Continue to monitor CBC transfuse as indicated. 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 Fever/SIRS - B symptoms - UTI ruled out - CXR negative - blood cultures pending Anxiety - paxil DVT prophylaxis: SCDs Discussed with: patient, nursing Anticipated discharge:[address]: home A total of 35 minutes was spent on the care of this complex patient more than 50% of the time was spent in counseling and care coordination Objective - Vital Signs Vital signs: Vital Signs Temp 98.8 F 06/26/21 11:36 Pulse 95 06/26/21 11:36 Resp 16 06/26/21 11:36 BP 115/63 06/26/21 11:36 Pulse Ox 98 06/26/21 11:36 Intake & Output 06/25/21 06/26/21 06/26/21 18:59 06:59 18:59 Intake Total 550 2106 Balance 550 2106 Intake: Intake, IV Titration 1746 Amount Cytarabine/Pf 380 mg In 276 Sodium Chloride 0.9% 500 ml 500 ml @ 21.625 mls/hr IV Q24H [facility] Rx#: [id number] IDArubicin HCL 20 mg 30 IDArubicin HCL 3 mg In Empty Syringe 1 syr @ 138 mls/hr IV Q24H [facility] Rx#: [id number] Sodium Chloride 0.45% 1, 1440 000 ml @ 120 mls/hr IV . Q8H20M [facility] Rx#:[id number] Oral 240 360 Blood Product 310 Rc Irr As1 Unit 310 [id number] Other: Voiding Method Toilet Toilet # Voids 1 2 1 - Labs CBC & Chem 7: 06/26/21 08:25 06/26/21 08:25 Labs: Abnormal Lab Results - Last 24 Hours (Table) 06/25/21 06/25/21 06/26/21 Range/Units 17:13 20:04 07:17 WBC (3.8-10.6) k/uL RBC (3.80-5.40) m/uL Hgb (11.4-16.0) gm/dL Hct (34.0-46.0) % MCH (25.0-35.0) pg RDW (11.5-15.5) % Plt Count (150-450) k/uL Neutrophils # (Manual) (1.3-7.7) k/uL Lymphocytes # (Manual) (1.0-4.8) k/uL Chloride (98-107) mmol/L Glucose (74-99) mg/dL POC Glucose (mg/dL) 131 H 155 H 149 H (75-99) mg/dL Uric Acid (3.7-7.4) mg/dL Calcium (8.4-10.2) mg/dL AST (14-36) U/L ALT (4-34) U/L Lactate Dehydrogenase (313-618) U/L Total Protein (6.3-8.2) g/dL Albumin (3.5-5.0) g/dL 06/26/21 06/26/21 06/26/21 Range/Units 08:25 08:25 11:35 WBC 1.4 L* (3.8-10.6) k/uL RBC 2.10 L (3.80-5.40) m/uL Hgb 7.4 L (11.4-16.0) gm/dL Hct 20.9 L (34.0-46.0) % MCH 35.4 H (25.0-35.0) pg RDW 19.8 H (11.5-15.5) % Plt Count 31 L (150-450) k/uL Neutrophils # (Manual) 1.20 L (1.3-7.7) k/uL Lymphocytes # (Manual) 0.17 L (1.0-4.8) k/uL Chloride 110 H (98-107) mmol/L Glucose 172 H (74-99) mg/dL POC Glucose (mg/dL) 104 H (75-99) mg/dL Uric Acid 3.6 L (3.7-7.4) mg/dL Calcium 8.2 L (8.4-10.2) mg/dL AST 67 H (14-36) U/L ALT 66 H (4-34) U/L Lactate Dehydrogenase 672 H (313-618) U/L Total Protein 6.2 L (6.3-8.2) g/dL Albumin 2.9 L (3.5-5.0) g/dL Microbiology - Last 24 Hours (Table) 06/19/21 17:31 Blood Culture - Final Blood No Growth after 144 hours 06/19/21 17:31 Blood Culture - Final Blood No Growth after 144 hours
[2021-06-26 18:30] LABS: Glucose,Whole Blood 118 mg/dL (75-99)
[2021-06-26] MEDS: DEXAMETHASONE SOD PHOSPHATE 10 MG/ML 1 ML VIAL IV SCH (19:29)
[2021-06-26] MEDS: FAMOTIDINE 20 MG/2 ML VIAL IV SCH (19:29)
[2021-06-26] MEDS: ONDANSETRON 16 MG in SODIUM CHLORIDE 0.9% 50 ML IVPB SCH (19:29)
[2021-06-26] MEDS: SODIUM CHLORIDE 0.9% IV SCH (19:30)
[2021-06-26] MEDS: CYTARABINE IV SCH (19:30)
[2021-06-26 21:13] LABS: Glucose,Whole Blood 183 mg/dL (75-99)
[2021-06-27] MEDS: SODIUM CHLORIDE 0.45% 1,000 ML IV SCH ×2 (00:06→07:38)
[2021-06-27] MEDS: SALT AND SODA MOUTHWASH 1,000 ML PO SCH ×5 (01:21→20:51)
[2021-06-27 06:19] LABS: Anisocytosis Slight; MCH 36.1 pg (25.0-35.0); MCHC 35.9 g/dL (31.0-37.0); MCV 100.6 fL (80.0-100.0); Macrocytosis Moderate; Mean Platelet Volume 9.9; Platelet Count 28 k/uL (150-450); RBC 1.94 m/uL (3.80-5.40); RDW 19.6 % (11.5-15.5)
[2021-06-27 06:20] LABS: HCT 19.5 % (34.0-46.0); WBC 0.9 k/uL (3.8-10.6)
[2021-06-27 07:04] LABS: Glucose,Whole Blood 136 mg/dL (75-99)
[2021-06-27] MEDS: PARoxetine 10 MG TAB PO SCH (07:33)
[2021-06-27] MEDS: INSULIN ASPART (NovoLOG) 100 UNIT/ML VIAL SQ SCH ×3 (07:33→17:46)
[2021-06-27] MEDS: allopurinoL 300 MG TAB PO SCH (07:33)
[2021-06-27 09:48] LABS: ALT 61 U/L (4-34); AST 47 U/L (14-36); African American GFR (CKD) >90 (>60 ml/min/1.73 sqM); Albumin 2.9 g/dL (3.5-5.0); Albumin/Globulin Ratio 0.9; Alkaline Phosphatase 45 U/L (38-126); Anion Gap 4 mmol/L; Blood Urea Nitrogen 15 mg/dL (7-17); Calcium 8.1 mg/dL (8.4-10.2); Carbon Dioxide 28 mmol/L (22-30); Chloride 110 mmol/L (98-107); Globulin 3.3 g/dL; Glucose 156 mg/dL (74-99); Non-African American GFR(CKD) >90 (>60 ml/min/1.73 sqM); Sodium 142 mmol/L (137-145); Total Bilirubin 0.4 mg/dL (0.2-1.3); Total Protein 6.2 g/dL (6.3-8.2)
--- NOTE | 2021-06-27 10:52 | P.PN ---
Subjective Progress Note Date: 06/27/21 Principal diagnosis: AML In follow-up today patient has no physical complaints that are progressive, she is noting BLE swelling, mild. No fever, oral irritation, cough, N,V, abd pain, diarrhea, she is walking frequently, drinking plenty of fluids, tolerating oral intake. Objective - Vital Signs Vital signs: Vital Signs Temp 98.7 F 06/27/21 08:00 Pulse 80 06/27/21 08:00 Resp 16 06/27/21 08:00 BP 119/73 06/27/21 08:00 Pulse Ox 99 06/27/21 08:00 Intake & Output 06/26/21 06/27/21 06/27/21 18:59 06:59 18:59 Intake Total 1440 2246 Balance 1440 2246 Intake: Intake, IV Titration 1440 1766 Amount Cytarabine/Pf 380 mg In 276 Sodium Chloride 0.9% 500 ml 500 ml @ 21.625 mls/hr IV Q24H [facility] Rx#: [id number] Ondansetron 16 mg In 50 Sodium Chloride 0.9% 50 ml @ 232 mls/hr IVPB Q24H [facility] Rx#:[id number] Sodium Chloride 0.45% 1, 1440 1440 000 ml @ 120 mls/hr IV . Q8H20M [facility] Rx#:[id number] Oral 480 Other: Voiding Method Toilet # Voids 1 2 - Constitutional General appearance: Present: average body habitus, cooperative, no acute distress - EENT Eyes: Present: anicteric sclerae, EOMI ENT: Present: hearing grossly normal, normal oropharynx - Respiratory Respiratory: bilateral: CTA - Cardiovascular Rhythm: regular Heart sounds: normal: S1, S2 Abnormal Heart Sounds: Absent: systolic murmur, diastolic murmur, rub, S3 Gallop, S4 Gallop, click, other - Peripheral edema leg Peripheral Edema: bilateral: Trace - Gastrointestinal General gastrointestinal: Present: normal bowel sounds, soft. Absent: absent bowel sounds, decreased bowel sounds, distended, hepatomegaly, hyperactive bowel sounds, organomegaly, rigid, scaphoid, splenomegaly, tenderness, umbilical hernia, ventral hernia - Integumentary Integumentary: Present: normal turgor - Neurologic Neurologic: Present: CNII-XII intact - Musculoskeletal Musculoskeletal: Present: strength equal bilaterally - Psychiatric Psychiatric: Present: A&O x's 3, appropriate affect, intact judgment & insight - Labs CBC & Chem 7: 06/27/21 05:05 06/27/21 05:15 Labs: Abnormal Lab Results - Last 24 Hours (Table) 06/26/21 06/26/21 06/26/21 Range/Units 11:35 18:00 21:11 WBC (3.8-10.6) k/uL RBC (3.80-5.40) m/uL Hgb (11.4-16.0) gm/dL Hct (34.0-46.0) % MCV (80.0-100.0) fL MCH (25.0-35.0) pg RDW (11.5-15.5) % Plt Count (150-450) k/uL Chloride (98-107) mmol/L Glucose (74-99) mg/dL POC Glucose (mg/dL) 104 H 118 H 183 H (75-99) mg/dL Calcium (8.4-10.2) mg/dL AST (14-36) U/L ALT (4-34) U/L Total Protein (6.3-8.2) g/dL Albumin (3.5-5.0) g/dL 06/27/21 06/27/21 06/27/21 Range/Units 05:05 05:15 07:03 WBC 0.9 L* (3.8-10.6) k/uL RBC 1.94 L (3.80-5.40) m/uL Hgb 7.0 L (11.4-16.0) gm/dL Hct 19.5 L* (34.0-46.0) % MCV 100.6 H (80.0-100.0) fL MCH 36.1 H (25.0-35.0) pg RDW 19.6 H (11.5-15.5) % Plt Count 28 L (150-450) k/uL Chloride 110 H (98-107) mmol/L Glucose 156 H (74-99) mg/dL POC Glucose (mg/dL) 136 H (75-99) mg/dL Calcium 8.1 L (8.4-10.2) mg/dL AST 47 H (14-36) U/L ALT 61 H (4-34) U/L Total Protein 6.2 L (6.3-8.2) g/dL Albumin 2.9 L (3.5-5.0) g/dL Assessment and Plan (1) AML (acute myeloid leukemia) Narrative/Plan: 7+3 regimen, Day 4-5/7 for newly diagnosed AML. Cont chemotherapy without adjustment. No evidence of TLS-cont allopurinol for now GI prophylaxis Bring compression socks from home and wear during day Ambulate frequently Diet as tolerated, liberal fluids Cont supportive medications Uric Acid and phos WNL Daily CBC, CMP Conservative transfusions, irradiated blood products CMV status on patient-negative Educated pt on neutropenic precautions, bleeding precautions Current Visit: Yes Status: Acute Priority: High Code(s): C92.00 - ACUTE MYELOBLASTIC LEUKEMIA, NOT HAVING ACHIEVED REMISSION SNOMED Code(s): 97084324 Plan: Doctor attests: I performed a history and physical examination of this patient, developed impression and plan of care, discussed with dictator. I agree with dictators note, documented as a scribe.
[2021-06-27 11:34] LABS: Glucose,Whole Blood 174 mg/dL (75-99)
--- NOTE | 2021-06-27 12:24 | P.PN ---
Subjective Progress Note Date: 06/27/21 Patient is doing fairly well today. She denies any nausea or diarrhea. No acute events overnight. Objective - Vital Signs Vital signs: Vital Signs Temp 98.7 F 06/27/21 11:50 Pulse 85 06/27/21 11:50 Resp 17 06/27/21 11:50 BP 124/79 06/27/21 11:50 Pulse Ox 98 06/27/21 11:50 Intake & Output 06/26/21 06/27/21 06/27/21 18:59 06:59 18:59 Intake Total 1440 2246 Balance 1440 2246 Intake: Intake, IV Titration 1440 1766 Amount Cytarabine/Pf 380 mg In 276 Sodium Chloride 0.9% 500 ml 500 ml @ 21.625 mls/hr IV Q24H [facility] Rx#: [id number] Ondansetron 16 mg In 50 Sodium Chloride 0.9% 50 ml @ 232 mls/hr IVPB Q24H [facility] Rx#:[id number] Sodium Chloride 0.45% 1, 1440 1440 000 ml @ 120 mls/hr IV . Q8H20M [facility] Rx#:[id number] Oral 480 Other: Voiding Method Toilet # Voids 1 2 - Exam General: The patient is awake and alert, in no distress Eye: there is normal conjunctiva bilaterally. Neck: The neck is supple, there is no JVD. Cardiovascular: Normal S1-S2, no S3-S4, no murmurs. Respiratory: Lungs clear to auscultation bilaterally Gastrointestinal: Abdomen is soft, nontender Musculoskeletal: There is no pedal edema. Neurological:. Speech is normal. Skin: Skin is warm and dry - Labs CBC & Chem 7: 06/27/21 05:05 06/27/21 05:15 Labs: Abnormal Lab Results - Last 24 Hours (Table) 06/26/21 06/26/21 06/27/21 Range/Units 18:00 21:11 05:05 WBC 0.9 L* (3.8-10.6) k/uL RBC 1.94 L (3.80-5.40) m/uL Hgb 7.0 L (11.4-16.0) gm/dL Hct 19.5 L* (34.0-46.0) % MCV 100.6 H (80.0-100.0) fL MCH 36.1 H (25.0-35.0) pg RDW 19.6 H (11.5-15.5) % Plt Count 28 L (150-450) k/uL Chloride (98-107) mmol/L Glucose (74-99) mg/dL POC Glucose (mg/dL) 118 H 183 H (75-99) mg/dL Calcium (8.4-10.2) mg/dL AST (14-36) U/L ALT (4-34) U/L Total Protein (6.3-8.2) g/dL Albumin (3.5-5.0) g/dL 06/27/21 06/27/21 06/27/21 Range/Units 05:15 07:03 11:33 WBC (3.8-10.6) k/uL RBC (3.80-5.40) m/uL Hgb (11.4-16.0) gm/dL Hct (34.0-46.0) % MCV (80.0-100.0) fL MCH (25.0-35.0) pg RDW (11.5-15.5) % Plt Count (150-450) k/uL Chloride 110 H (98-107) mmol/L Glucose 156 H (74-99) mg/dL POC Glucose (mg/dL) 136 H 174 H (75-99) mg/dL Calcium 8.1 L (8.4-10.2) mg/dL AST 47 H (14-36) U/L ALT 61 H (4-34) U/L Total Protein 6.2 L (6.3-8.2) g/dL Albumin 2.9 L (3.5-5.0) g/dL Assessment and Plan Assessment: This is a 61-year-old female who presented to the hospital with abnormal lab work. Patient had extensive workup during this admission was found to have newly diagnosed AML. She was seen and evaluated by hematology and started on chemotherapy. Below is a list of her medical problems addressed during this hospitalization. 1. Newly diagnosed AML: Started on chemotherapy as directed by hematology. Patient tolerating treatment well. Close monitoring of lab work. Conservative transfusion as directed by hematology. 2. Pancytopenia related to above 3. Underlying depression Today, I reviewed her medication list and lab work results. Plan to finish chemotherapy course with possible discharge planning on Saturday if remains stable.
[2021-06-27] MEDS: SODIUM CHLORIDE 0.9% 1,000 ML IV SCH (16:53)
[2021-06-27 17:41] LABS: Glucose,Whole Blood 110 mg/dL (75-99)
[2021-06-27] MEDS: FAMOTIDINE 20 MG/2 ML VIAL IV SCH (19:56)
[2021-06-27] MEDS: DEXAMETHASONE SOD PHOSPHATE 10 MG/ML 1 ML VIAL IV SCH (19:56)
[2021-06-27] MEDS: ONDANSETRON 16 MG in SODIUM CHLORIDE 0.9% 50 ML IVPB SCH (19:56)
[2021-06-27 20:33] LABS: Glucose,Whole Blood 154 mg/dL (75-99)
[2021-06-27] MEDS: SODIUM CHLORIDE 0.9% IV SCH (20:46)
[2021-06-27] MEDS: CYTARABINE IV SCH (20:46)
[2021-06-28] MEDS: SALT AND SODA MOUTHWASH 1,000 ML PO SCH ×6 (02:16→23:54)
[2021-06-28 07:07] LABS: Glucose,Whole Blood 128 mg/dL (75-99)
[2021-06-28 07:47] LABS: Anisocytosis Slight; MCH 34.3 pg (25.0-35.0); MCHC 34.4 g/dL (31.0-37.0); MCV 99.6 fL (80.0-100.0); Macrocytosis Slight; Mean Platelet Volume 10.2; RBC 2.01 m/uL (3.80-5.40); RDW 18.6 % (11.5-15.5)
[2021-06-28 07:48] LABS: WBC 0.8 k/uL (3.8-10.6)
[2021-06-28 07:49] LABS: Platelet Count 25 k/uL (150-450)
[2021-06-28 07:58] LABS: HGB 6.9 gm/dL (11.4-16.0)
[2021-06-28] MEDS: INSULIN ASPART (NovoLOG) 100 UNIT/ML VIAL SQ SCH ×3 (08:29→17:49)
[2021-06-28] MEDS: allopurinoL 300 MG TAB PO SCH (08:33)
[2021-06-28] MEDS: PARoxetine 10 MG TAB PO SCH (08:33)
[2021-06-28 11:41] LABS: Glucose,Whole Blood 105 mg/dL (75-99)
[2021-06-28] MEDS: SODIUM CHLORIDE 0.9% 1,000 ML IV SCH (11:59)
--- NOTE | 2021-06-28 12:42 | P.PN ---
Subjective Progress Note Date: 06/28/21 Principal diagnosis: AML In follow-up today patient has no physical complaints that are progressive, lower extremity swelling is less with fluid decrease. No fever, oral irritati on, cough, N,V, abd pain, diarrhea, she is walking frequently, drinking plenty of fluids, tolerating oral intake. She is noticing very easy bruising on her legs. Objective - Vital Signs Vital signs: Vital Signs Temp 98.3 F 06/28/21 12:00 Pulse 76 06/28/21 12:00 Resp 17 06/28/21 12:00 BP 119/78 06/28/21 12:00 Pulse Ox 99 06/28/21 12:00 Intake & Output 06/27/21 06/28/21 06/28/21 18:59 06:59 18:59 Intake Total 870 926 Balance 870 926 Weight 88.1 kg Intake: Intake, IV Titration 870 926 Amount Cytarabine/Pf 380 mg In 276 Sodium Chloride 0.9% 500 ml 500 ml @ 21.625 mls/hr IV Q24H [facility] Rx#: [id number] Ondansetron 16 mg In 50 Sodium Chloride 0.9% 50 ml @ 232 mls/hr IVPB Q24H [facility] Rx#:[id number] Sodium Chloride 0.45% 1, 720 000 ml @ 120 mls/hr IV . Q8H20M [facility] Rx#:[id number] Sodium Chloride 0.9% 1, 150 600 000 ml @ 50 mls/hr IV . Q20H [facility] Rx#:[id number] Other: Voiding Method Toilet Toilet # Voids 6 3 - Constitutional General appearance: Present: average body habitus, cooperative, no acute dist ress - EENT Eyes: Present: anicteric sclerae, EOMI ENT: Present: hearing grossly normal, normal oropharynx - Respiratory Respiratory: bilateral: CTA - Cardiovascular Rhythm: regular Heart sounds: normal: S1, S2 Abnormal Heart Sounds: Absent: systolic murmur, diastolic murmur, rub, S3 Gallop, S4 Gallop, click, other - Peripheral edema leg Peripheral Edema: bilateral: None - Gastrointestinal General gastrointestinal: Present: normal bowel sounds, soft. Absent: absent bowel sounds, decreased bowel sounds, distended, hepatomegaly, hyperactive bowel sounds, organomegaly, rigid, scaphoid, splenomegaly, tenderness, umbilical hernia, ventral hernia - Integumentary Integumentary: Present: normal - Neurologic Neurologic: Present: CNII-XII intact - Musculoskeletal Musculoskeletal: Present: strength equal bilaterally - Psychiatric Psychiatric: Present: A&O x's 3, appropriate affect, intact judgment & insight - Labs CBC & Chem 7: 06/28/21 05:20 06/27/21 05:15 Labs: Abnormal Lab Results - Last 24 Hours (Table) 06/27/21 06/27/21 06/28/21 Range/Units 17:40 20:32 05:20 WBC 0.8 L* (3.8-10.6) k/uL RBC 2.01 L (3.80-5.40) m/uL Hgb 6.9 L* (11.4-16.0) gm/dL Hct 20.0 L (34.0-46.0) % RDW 18.6 H (11.5-15.5) % Plt Count 25 L (150-450) k/uL POC Glucose (mg/dL) 110 H 154 H (75-99) mg/dL Crossmatch 06/28/21 06/28/21 06/28/21 Range/Units 07:06 08:53 11:40 WBC (3.8-10.6) k/uL RBC (3.80-5.40) m/uL Hgb (11.4-16.0) gm/dL Hct (34.0-46.0) % RDW (11.5-15.5) % Plt Count (150-450) k/uL POC Glucose (mg/dL) 128 H 105 H (75-99) mg/dL Crossmatch See Detail Assessment and Plan (1) AML (acute myeloid leukemia) Narrative/Plan: 7+3 regimen, Day 5/7 for newly diagnosed AML. Cont chemotherapy without adjustment. No evidence of TLS-cont allopurinol for now GI prophylaxis Bring compression socks from home and wear during day Ambulate frequently Diet as tolerated, liberal fluids Cont supportive medications Daily CBC, CMP Conservative transfusions, irradiated blood products. PRBCs today for Hgb 6.9. Plt 25,000. No asa, NSAIDs, anticoagulants CMV status on patient-negative Educated pt on neutropenic precautions, bleeding precautions Current Visit: Yes Status: Acute Priority: High Code(s): C92.00 - ACUTE MYELOBLASTIC LEUKEMIA, NOT HAVING ACHIEVED REMISSION SNOMED Code(s): 54200646
--- NOTE | 2021-06-28 16:40 | P.PN ---
Subjective Progress Note Date: 06/28/21 Patient is doing fairly well today. She denies any nausea or diarrhea. No acute events overnight. Objective - Vital Signs Vital signs: Vital Signs Temp 98.4 F 06/28/21 16:00 Pulse 84 06/28/21 16:00 Resp 16 06/28/21 16:00 BP 110/63 06/28/21 16:00 Pulse Ox 98 06/28/21 15:50 Intake & Output 06/27/21 06/28/21 06/28/21 18:59 06:59 18:59 Intake Total 870 926 0 Balance 870 926 0 Weight 88.1 kg Intake: Intake, IV Titration 870 926 Amount Cytarabine/Pf 380 mg In 276 Sodium Chloride 0.9% 500 ml 500 ml @ 21.625 mls/hr IV Q24H [facility] Rx#: [id number] Ondansetron 16 mg In 50 Sodium Chloride 0.9% 50 ml @ 232 mls/hr IVPB Q24H [facility] Rx#:[id number] Sodium Chloride 0.45% 1, 720 000 ml @ 120 mls/hr IV . Q8H20M [facility] Rx#:[id number] Sodium Chloride 0.9% 1, 150 600 000 ml @ 50 mls/hr IV . Q20H [facility] Rx#:[id number] Blood Product 0 Rc Irr As1 Unit 0 [id number] Other: Voiding Method Toilet Toilet # Voids 6 3 - Exam General: The patient is awake and alert, in no distress Eye: there is normal conjunctiva bilaterally. Neck: The neck is supple, there is no JVD. Cardiovascular: Normal S1-S2, no S3-S4, no murmurs. Respiratory: Lungs clear to auscultation bilaterally Gastrointestinal: Abdomen is soft, nontender Musculoskeletal: There is no pedal edema. Neurological:. Speech is normal. Skin: Skin is warm and dry - Labs CBC & Chem 7: 06/28/21 05:20 06/27/21 05:15 Labs: Abnormal Lab Results - Last 24 Hours (Table) 06/27/21 06/27/21 06/28/21 Range/Units 17:40 20:32 05:20 WBC 0.8 L* (3.8-10.6) k/uL RBC 2.01 L (3.80-5.40) m/uL Hgb 6.9 L* (11.4-16.0) gm/dL Hct 20.0 L (34.0-46.0) % RDW 18.6 H (11.5-15.5) % Plt Count 25 L (150-450) k/uL POC Glucose (mg/dL) 110 H 154 H (75-99) mg/dL Crossmatch 06/28/21 06/28/21 06/28/21 Range/Units 07:06 08:53 11:40 WBC (3.8-10.6) k/uL RBC (3.80-5.40) m/uL Hgb (11.4-16.0) gm/dL Hct (34.0-46.0) % RDW (11.5-15.5) % Plt Count (150-450) k/uL POC Glucose (mg/dL) 128 H 105 H (75-99) mg/dL Crossmatch See Detail Assessment and Plan Assessment: This is a 61-year-old female who presented to the hospital with abnormal lab work. Patient had extensive workup during this admission was found to have newly diagnosed AML. She was seen and evaluated by hematology and started on chemotherapy. Below is a list of her medical problems addressed during this hospitalization. 1. Newly diagnosed AML: Started on chemotherapy as directed by hematology. Patient tolerating treatment well. Close monitoring of lab work. Conservative transfusion as directed by hematology. 2. Pancytopenia related to above 3. Underlying depression Today, I reviewed her medication list and lab work results. Plan to finish chemotherapy course with possible discharge planning on Saturday if remains stable.
[2021-06-28 16:59] LABS: Glucose,Whole Blood 147 mg/dL (75-99)
[2021-06-28 20:00] LABS: Glucose,Whole Blood 120 mg/dL (75-99)
[2021-06-28] MEDS: FAMOTIDINE 20 MG/2 ML VIAL IV SCH (20:13)
[2021-06-28] MEDS: ONDANSETRON 16 MG in SODIUM CHLORIDE 0.9% 50 ML IVPB SCH (20:13)
[2021-06-28] MEDS: DEXAMETHASONE SOD PHOSPHATE 10 MG/ML 1 ML VIAL IV SCH (20:14)
[2021-06-28] MEDS: SODIUM CHLORIDE 0.9% IV SCH (20:18)
[2021-06-28] MEDS: CYTARABINE IV SCH (20:18)
[2021-06-29] MEDS: SALT AND SODA MOUTHWASH 1,000 ML PO SCH ×4 (06:13→19:42)
[2021-06-29 06:39] LABS: Anisocytosis Slight; HCT 20.8 % (34.0-46.0); HGB 7.5 gm/dL (11.4-16.0); MCH 35.1 pg (25.0-35.0); MCHC 35.9 g/dL (31.0-37.0); MCV 97.7 fL (80.0-100.0); Macrocytosis Slight; Mean Platelet Volume 9.1; RBC 2.13 m/uL (3.80-5.40); RDW 16.2 % (11.5-15.5)
[2021-06-29 06:44] LABS: Platelet Count 16 k/uL (150-450); WBC 0.7 k/uL (3.8-10.6)
[2021-06-29 06:59] LABS: ALT 82 U/L (4-34); AST 61 U/L (14-36); African American GFR (CKD) >90 (>60 ml/min/1.73 sqM); Albumin 2.7 g/dL (3.5-5.0); Albumin/Globulin Ratio 0.8; Alkaline Phosphatase 43 U/L (38-126); Anion Gap 3 mmol/L; Blood Urea Nitrogen 12 mg/dL (7-17); Carbon Dioxide 28 mmol/L (22-30); Chloride 109 mmol/L (98-107); Globulin 3.2 g/dL; Glucose 147 mg/dL (74-99); Non-African American GFR(CKD) >90 (>60 ml/min/1.73 sqM); Potassium 4.2 mmol/L (3.5-5.1); Sodium 140 mmol/L (137-145); Total Bilirubin 0.6 mg/dL (0.2-1.3); Total Protein 5.9 g/dL (6.3-8.2)
[2021-06-29 07:13] LABS: Glucose,Whole Blood 134 mg/dL (75-99)
[2021-06-29] MEDS: PARoxetine 10 MG TAB PO SCH (08:13)
[2021-06-29] MEDS: INSULIN ASPART (NovoLOG) 100 UNIT/ML VIAL SQ SCH ×3 (08:13→17:09)
[2021-06-29] MEDS: allopurinoL 300 MG TAB PO SCH (08:13)
[2021-06-29] MEDS: SODIUM CHLORIDE 0.9% 1,000 ML IV SCH (08:14)
[2021-06-29] MEDS: FLUCONAZOLE 100 MG TAB PO SCH (11:41)
[2021-06-29] MEDS: LEVOFLOXACIN 500 MG TAB PO SCH (11:41)
[2021-06-29] MEDS: ACYCLOVIR 200 MG CAP PO SCH ×2 (11:41→21:15)
[2021-06-29 11:53] LABS: Glucose,Whole Blood 97 mg/dL (75-99)
--- NOTE | 2021-06-29 14:02 | P.PN ---
Subjective Progress Note Date: 06/29/21 Patient is doing fairly well today. She denies any nausea or diarrhea. No acute events overnight. Objective - Vital Signs Vital signs: Vital Signs Temp 98.2 F 06/29/21 12:00 Pulse 75 06/29/21 12:00 Resp 17 06/29/21 12:00 BP 109/54 06/29/21 12:00 Pulse Ox 98 06/29/21 12:00 Intake & Output 06/28/21 06/29/21 06/29/21 18:59 06:59 18:59 Intake Total 710 1084 Balance 710 1084 Weight 89.5 kg Intake: Intake, IV Titration 400 584 Amount Cytarabine/Pf 380 mg In 184 Sodium Chloride 0.9% 500 ml 500 ml @ 21.625 mls/hr IV Q24H [facility] Rx#: [id number] Sodium Chloride 0.9% 1, 400 400 000 ml @ 50 mls/hr IV . Q20H [facility] Rx#:[id number] Oral 500 Blood Product 310 Rc Irr As1 Unit 310 [id number] Other: Voiding Method Toilet Toilet Toilet # Voids 2 - Exam General: The patient is awake and alert, in no distress Eye: there is normal conjunctiva bilaterally. Neck: The neck is supple, there is no JVD. Cardiovascular: Normal S1-S2, no S3-S4, no murmurs. Respiratory: Lungs clear to auscultation bilaterally Gastrointestinal: Abdomen is soft, nontender Musculoskeletal: There is no pedal edema. Neurological:. Speech is normal. Skin: Skin is warm and dry - Labs CBC & Chem 7: 06/29/21 05:59 06/29/21 05:59 Labs: Abnormal Lab Results - Last 24 Hours (Table) 06/28/21 06/28/21 06/28/21 Range/Units 08:53 16:58 19:58 WBC (3.8-10.6) k/uL RBC (3.80-5.40) m/uL Hgb (11.4-16.0) gm/dL Hct (34.0-46.0) % MCH (25.0-35.0) pg RDW (11.5-15.5) % Plt Count (150-450) k/uL Chloride (98-107) mmol/L Creatinine (0.52-1.04) mg/dL Glucose (74-99) mg/dL POC Glucose (mg/dL) 147 H 120 H (75-99) mg/dL Calcium (8.4-10.2) mg/dL AST (14-36) U/L ALT (4-34) U/L Total Protein (6.3-8.2) g/dL Albumin (3.5-5.0) g/dL Crossmatch See Detail 06/29/21 06/29/21 06/29/21 Range/Units 05:59 05:59 07:11 WBC 0.7 L* (3.8-10.6) k/uL RBC 2.13 L (3.80-5.40) m/uL Hgb 7.5 L (11.4-16.0) gm/dL Hct 20.8 L (34.0-46.0) % MCH 35.1 H (25.0-35.0) pg RDW 16.2 H (11.5-15.5) % Plt Count 16 L* (150-450) k/uL Chloride 109 H (98-107) mmol/L Creatinine 0.51 L (0.52-1.04) mg/dL Glucose 147 H (74-99) mg/dL POC Glucose (mg/dL) 134 H (75-99) mg/dL Calcium 8.0 L (8.4-10.2) mg/dL AST 61 H (14-36) U/L ALT 82 H (4-34) U/L Total Protein 5.9 L (6.3-8.2) g/dL Albumin 2.7 L (3.5-5.0) g/dL Crossmatch Assessment and Plan Assessment: This is a 61-year-old female who presented to the hospital with abnormal lab work. Patient had extensive workup during this admission was found to have newly diagnosed AML. She was seen and evaluated by hematology and started on chemotherapy. Below is a list of her medical problems addressed during this hospitalization. 1. Newly diagnosed AML: Started on chemotherapy as directed by hematology. Patient tolerating treatment well. Close monitoring of lab work. Conservative transfusion as directed by hematology. 2. Pancytopenia related to above: Status post 4 units of PRBC transfusion during this admission managed by hematology 3. Underlying depression Today, I reviewed her medication list and lab work results. Plan to finish chemotherapy course with possible discharge planning on Saturday if remains stable.
--- NOTE | 2021-06-29 15:20 | P.PN ---
Subjective Progress Note Date: 06/29/21 Principal diagnosis: AML In follow-up today patient has no physical complaints, denies fever, oral irritation, cough, N,V, abd pain, diarrhea, she is walking frequently, drinking plenty of fluids, tolerating oral intake. No bleeding, bruising is stable Objective - Vital Signs Vital signs: Vital Signs Temp 98.4 F 06/29/21 07:53 Pulse 82 06/29/21 07:53 Resp 17 06/29/21 07:53 BP 115/75 06/29/21 07:53 Pulse Ox 99 06/29/21 07:53 Intake & Output 06/28/21 06/29/21 06/29/21 18:59 06:59 18:59 Intake Total 710 1084 Balance 710 1084 Weight 89.5 kg Intake: Intake, IV Titration 400 584 Amount Cytarabine/Pf 380 mg In 184 Sodium Chloride 0.9% 500 ml 500 ml @ 21.625 mls/hr IV Q24H [facility] Rx#: [id number] Sodium Chloride 0.9% 1, 400 400 000 ml @ 50 mls/hr IV . Q20H [facility] Rx#:[id number] Oral 500 Blood Product 310 Rc Irr As1 Unit 310 [id number] Other: Voiding Method Toilet Toilet Toilet # Voids 2 - Constitutional General appearance: Present: average body habitus, cooperative, no acute distress - EENT Eyes: Present: anicteric sclerae, EOMI ENT: Present: hearing grossly normal, normal oropharynx - Respiratory Respiratory: bilateral: CTA - Cardiovascular Rhythm: regular Heart sounds: normal: S1, S2 Abnormal Heart Sounds: Absent: systolic murmur, diastolic murmur, rub, S3 Gallop, S4 Gallop, click, other - Peripheral edema leg Peripheral Edema: bilateral: Trace - Gastrointestinal General gastrointestinal: Present: normal bowel sounds, soft. Absent: absent bowel sounds, decreased bowel sounds, distended, hepatomegaly, hyperactive bowel sounds, organomegaly, rigid, scaphoid, splenomegaly, tenderness, umbilical herni a, ventral hernia - Integumentary Integumentary: Present: pale - Neurologic Neurologic: Present: CNII-XII intact - Musculoskeletal Musculoskeletal: Present: strength equal bilaterally - Psychiatric Psychiatric: Present: A&O x's 3, appropriate affect, intact judgment & insight - Labs CBC & Chem 7: 06/29/21 05:59 06/29/21 05:59 Labs: Abnormal Lab Results - Last 24 Hours (Table) 06/28/21 06/28/21 06/28/21 Range/Units 08:53 11:40 16:58 WBC (3.8-10.6) k/uL RBC (3.80-5.40) m/uL Hgb (11.4-16.0) gm/dL Hct (34.0-46.0) % MCH (25.0-35.0) pg RDW (11.5-15.5) % Plt Count (150-450) k/uL Chloride (98-107) mmol/L Creatinine (0.52-1.04) mg/dL Glucose (74-99) mg/dL POC Glucose (mg/dL) 105 H 147 H (75-99) mg/dL Calcium (8.4-10.2) mg/dL AST (14-36) U/L ALT (4-34) U/L Total Protein (6.3-8.2) g/dL Albumin (3.5-5.0) g/dL Crossmatch See Detail 06/28/21 06/29/21 06/29/21 Range/Units 19:58 05:59 05:59 WBC 0.7 L* (3.8-10.6) k/uL RBC 2.13 L (3.80-5.40) m/uL Hgb 7.5 L (11.4-16.0) gm/dL Hct 20.8 L (34.0-46.0) % MCH 35.1 H (25.0-35.0) pg RDW 16.2 H (11.5-15.5) % Plt Count 16 L* (150-450) k/uL Chloride 109 H (98-107) mmol/L Creatinine 0.51 L (0.52-1.04) mg/dL Glucose 147 H (74-99) mg/dL POC Glucose (mg/dL) 120 H (75-99) mg/dL Calcium 8.0 L (8.4-10.2) mg/dL AST 61 H (14-36) U/L ALT 82 H (4-34) U/L Total Protein 5.9 L (6.3-8.2) g/dL Albumin 2.7 L (3.5-5.0) g/dL Crossmatch 06/29/21 Range/Units 07:11 WBC (3.8-10.6) k/uL RBC (3.80-5.40) m/uL Hgb (11.4-16.0) gm/dL Hct (34.0-46.0) % MCH (25.0-35.0) pg RDW (11.5-15.5) % Plt Count (150-450) k/uL Chloride (98-107) mmol/L Creatinine (0.52-1.04) mg/dL Glucose (74-99) mg/dL POC Glucose (mg/dL) 134 H (75-99) mg/dL Calcium (8.4-10.2) mg/dL AST (14-36) U/L ALT (4-34) U/L Total Protein (6.3-8.2) g/dL Albumin (3.5-5.0) g/dL Crossmatch Assessment and Plan (1) AML (acute myeloid leukemia) Narrative/Plan: 7+3 regimen, Day 5/7 for newly diagnosed AML. Cont chemotherapy without adjustment. No evidence of TLS-cont allopurinol for now GI prophylaxis Bring compression socks from home and wear during day Ambulate frequently Diet as tolerated, liberal oral fluids Cont supportive medications Daily CBC, CMP Conservative transfusions, irradiated blood products. No transfusion today, Hgb 7.5. Plt 16,000. No asa, NSAIDs, anticoagulants CMV status on patient-negative Educated pt on neutropenic precautions, bleeding precautions Begin antifungal, antiviral, and antibiotic therapy Current Visit: Yes Status: Acute Priority: High Code(s): C92.00 - ACUTE MYELOBLASTIC LEUKEMIA, NOT HAVING ACHIEVED REMISSION SNOMED Code(s): 61374625 Plan: Doctor attests: I performed a history and physical examination of this patient, developed impression and plan of care, discussed with dictator. I agree with dictators note, documented as a scribe.
[2021-06-29 16:52] LABS: Glucose,Whole Blood 177 mg/dL (75-99)
[2021-06-29] MEDS: FAMOTIDINE 20 MG/2 ML VIAL IV SCH (19:42)
[2021-06-29] MEDS: CYTARABINE IV SCH (19:42)
[2021-06-29] MEDS: SODIUM CHLORIDE 0.9% IV SCH (19:42)
[2021-06-29] MEDS: DEXAMETHASONE SOD PHOSPHATE 10 MG/ML 1 ML VIAL IV SCH (19:42)
[2021-06-29] MEDS: ONDANSETRON 16 MG in SODIUM CHLORIDE 0.9% 50 ML IVPB SCH (19:42)
[2021-06-29 20:12] LABS: Glucose,Whole Blood 131 mg/dL (75-99)
[2021-06-30] MEDS: SALT AND SODA MOUTHWASH 1,000 ML PO SCH ×6 (00:59→22:32)
[2021-06-30] MEDS: SODIUM CHLORIDE 0.9% 1,000 ML IV SCH ×2 (02:46→20:54)
[2021-06-30 07:13] LABS: Glucose,Whole Blood 135 mg/dL (75-99)
[2021-06-30] MEDS: INSULIN ASPART (NovoLOG) 100 UNIT/ML VIAL SQ SCH ×3 (07:35→17:36)
[2021-06-30] MEDS: ACYCLOVIR 200 MG CAP PO SCH ×2 (07:35→20:46)
[2021-06-30] MEDS: allopurinoL 300 MG TAB PO SCH (07:35)
[2021-06-30] MEDS: LEVOFLOXACIN 500 MG TAB PO SCH (07:35)
[2021-06-30] MEDS: FLUCONAZOLE 100 MG TAB PO SCH (07:36)
[2021-06-30] MEDS: PARoxetine 10 MG TAB PO SCH (07:36)
[2021-06-30 08:18] LABS: Anisocytosis Slight; HCT 24.6 % (34.0-46.0); HGB 8.4 gm/dL (11.4-16.0); MCH 33.3 pg (25.0-35.0); MCV 97.8 fL (80.0-100.0); Macrocytosis Slight; Mean Platelet Volume 8.2; RBC 2.52 m/uL (3.80-5.40); RDW 16.7 % (11.5-15.5)
[2021-06-30 08:26] LABS: ALT 79 U/L (4-34); AST 49 U/L (14-36); African American GFR (CKD) >90 (>60 ml/min/1.73 sqM); Albumin 3.3 g/dL (3.5-5.0); Albumin/Globulin Ratio 0.9; Alkaline Phosphatase 52 U/L (38-126); Anion Gap 6 mmol/L; Blood Urea Nitrogen 13 mg/dL (7-17); Calcium 8.6 mg/dL (8.4-10.2); Carbon Dioxide 28 mmol/L (22-30); Chloride 107 mmol/L (98-107); Globulin 3.5 g/dL; Glucose 127 mg/dL (74-99); Non-African American GFR(CKD) >90 (>60 ml/min/1.73 sqM); Potassium 3.9 mmol/L (3.5-5.1); Sodium 141 mmol/L (137-145); Total Bilirubin 0.7 mg/dL (0.2-1.3); Total Protein 6.8 g/dL (6.3-8.2)
[2021-06-30 08:34] LABS: Platelet Count 16 k/uL (150-450); WBC 0.6 k/uL (3.8-10.6)
[2021-06-30 11:50] LABS: Glucose,Whole Blood 136 mg/dL (75-99)
--- NOTE | 2021-06-30 13:58 | P.PN ---
Subjective Progress Note Date: 06/30/21 Patient is doing fairly well today. She denies any nausea or diarrhea. No acute events overnight. Objective - Vital Signs Vital signs: Vital Signs Temp 99.4 F 06/30/21 12:00 Pulse 74 06/30/21 12:00 Resp 17 06/30/21 12:00 BP 112/71 06/30/21 12:00 Pulse Ox 100 06/30/21 12:00 Intake & Output 06/29/21 06/30/21 06/30/21 18:59 06:59 18:59 Intake Total 500 120 Balance 500 120 Weight 89 kg Intake: Oral 500 120 Other: Voiding Method Toilet Toilet Toilet # Voids 1 2 - Exam General: The patient is awake and alert, in no distress Eye: there is normal conjunctiva bilaterally. Neck: The neck is supple, there is no JVD. Cardiovascular: Normal S1-S2, no S3-S4, no murmurs. Respiratory: Lungs clear to auscultation bilaterally Gastrointestinal: Abdomen is soft, nontender Musculoskeletal: There is no pedal edema. Neurological:. Speech is normal. Skin: Skin is warm and dry - Labs CBC & Chem 7: 06/30/21 07:42 06/30/21 07:42 Labs: Abnormal Lab Results - Last 24 Hours (Table) 06/29/21 06/29/21 06/30/21 Range/Units 16:51 20:08 07:04 WBC (3.8-10.6) k/uL RBC (3.80-5.40) m/uL Hgb (11.4-16.0) gm/dL Hct (34.0-46.0) % RDW (11.5-15.5) % Plt Count (150-450) k/uL Glucose (74-99) mg/dL POC Glucose (mg/dL) 177 H 131 H 135 H (75-99) mg/dL AST (14-36) U/L ALT (4-34) U/L Albumin (3.5-5.0) g/dL 06/30/21 06/30/21 06/30/21 Range/Units 07:42 07:42 11:39 WBC 0.6 L* (3.8-10.6) k/uL RBC 2.52 L (3.80-5.40) m/uL Hgb 8.4 L (11.4-16.0) gm/dL Hct 24.6 L (34.0-46.0) % RDW 16.7 H (11.5-15.5) % Plt Count 16 L* (150-450) k/uL Glucose 127 H (74-99) mg/dL POC Glucose (mg/dL) 136 H (75-99) mg/dL AST 49 H (14-36) U/L ALT 79 H (4-34) U/L Albumin 3.3 L (3.5-5.0) g/dL Assessment and Plan Assessment: This is a 61-year-old female who presented to the hospital with abnormal lab work. Patient had extensive workup during this admission was found to have newly diagnosed AML. She was seen and evaluated by hematology and started on chemotherapy. Below is a list of her medical problems addressed during this hospitalization. 1. Newly diagnosed AML: Started on chemotherapy as directed by hematology. Patient tolerating treatment well. Close monitoring of lab work. Conservative transfusion as directed by hematology. 2. Pancytopenia related to above: Status post 4 units of PRBC transfusion during this admission managed by hematology 3. Underlying depression Today, I reviewed her medication list and lab work results. Plan to finish chemotherapy course tonight at 8 PM. Repeat CBC in the morning. If stable discharge home tomorrow.
--- NOTE | 2021-06-30 15:42 | P.PN ---
Subjective Progress Note Date: 06/30/21 Principal diagnosis: New Acute Leukemia Blood counts stable today, continues on prophylaxic antibiotics, these are to continue on discharge, although . Diarrhea started last night, some abdominal cramping. Diet has been decreased to clear liquid until a neutropenic colitis can be ruled out. Diarrhea x5-6 times this am. Objective - Vital Signs Vital signs: Vital Signs Temp 99.4 F 06/30/21 12:00 Pulse 74 06/30/21 12:00 Resp 17 06/30/21 12:00 BP 112/71 06/30/21 12:00 Pulse Ox 100 06/30/21 12:00 Intake & Output 06/29/21 06/30/21 06/30/21 18:59 06:59 18:59 Intake Total 500 120 Balance 500 120 Weight 89 kg Intake: Oral 500 120 Other: Voiding Method Toilet Toilet Toilet # Voids 1 2 - Exam - Constitutional General appearance: Present: average body habitus, cooperative, no acute distress - EENT Eyes: Present: anicteric sclerae, EOMI ENT: Present: hearing grossly normal, normal oropharynx - Respiratory Respiratory: bilateral: CTA - Cardiovascular Rhythm: regular Heart sounds: normal: S1, S2 Abnormal Heart Sounds: Absent: systolic murmur, diastolic murmur, rub, S3 Gallop, S4 Gallop, click, other - Peripheral edema leg Peripheral Edema: bilateral: None - Gastrointestinal General gastrointestinal: Present: normal bowel sounds, soft - Integumentary Integumentary: Present: normal turgor, pale - Neurologic Neurologic: Present: CNII-XII intact - Musculoskeletal Musculoskeletal: Present: strength equal bilaterally - Psychiatric Psychiatric: Present: A&O x's 3, appropriate affect, intact judgment & insight - Labs CBC & Chem 7: 07/01/21 06:12 07/01/21 06:12 Labs: Abnormal Lab Results - Last 24 Hours (Table) 06/29/21 06/29/21 06/30/21 Range/Units 16:51 20:08 07:04 WBC (3.8-10.6) k/uL RBC (3.80-5.40) m/uL Hgb (11.4-16.0) gm/dL Hct (34.0-46.0) % RDW (11.5-15.5) % Plt Count (150-450) k/uL Glucose (74-99) mg/dL POC Glucose (mg/dL) 177 H 131 H 135 H (75-99) mg/dL AST (14-36) U/L ALT (4-34) U/L Albumin (3.5-5.0) g/dL 06/30/21 06/30/21 06/30/21 Range/Units 07:42 07:42 11:39 WBC 0.6 L* (3.8-10.6) k/uL RBC 2.52 L (3.80-5.40) m/uL Hgb 8.4 L (11.4-16.0) gm/dL Hct 24.6 L (34.0-46.0) % RDW 16.7 H (11.5-15.5) % Plt Count 16 L* (150-450) k/uL Glucose 127 H (74-99) mg/dL POC Glucose (mg/dL) 136 H (75-99) mg/dL AST 49 H (14-36) U/L ALT 79 H (4-34) U/L Albumin 3.3 L (3.5-5.0) g/dL Assessment and Plan Plan: AML (acute myeloid leukemia) Narrative/Plan: AML per discussion with pathology,Status Post 7+3 induction treatment this admission Patient tolerated well Daily labs and aggressive supportive care Irradiated blood products CMV status is neg Current Visit: Yes Status: Acute Priority: High Code(s): C92.00 - ACUTE MYELOBLASTIC LEUKEMIA, NOT HAVING ACHIEVED REMISSION SNOMED Code(s): 66797643 Diarrhea: - Concern of neutropenic colitis - Decrease diet clears - Stool studies - Add questran - Abdominal Imaging - Abdomen on exam is not very tender Rash/Blister on left interior hand: - Question of herpetic etiology - With neutropenia will add coverage for viral Pancytopenia: Secondary to chemo and AML - Transfuse irradiated blood only and platelets ordered however crisis in blood products therefore not releasing unless trauma one. Plan: - Stool Studies - Arzate Culture - Increase Acyclovir - Hold discharge today secondary to diarrhea - Discussed in detail with patient and
[2021-06-30 17:26] LABS: Glucose,Whole Blood 105 mg/dL (75-99)
[2021-06-30] MEDS: PANTOPRAZOLE 40 MG TABLET PO SCH (17:37)
[2021-06-30 19:59] LABS: Glucose,Whole Blood 185 mg/dL (75-99)
[2021-07-01] MEDS: SALT AND SODA MOUTHWASH 1,000 ML PO SCH ×5 (05:10→23:42)
[2021-07-01 07:06] LABS: Glucose,Whole Blood 85 mg/dL (75-99)
[2021-07-01 07:06] LABS: Anisocytosis Slight; HCT 21.8 % (34.0-46.0); HGB 7.7 gm/dL (11.4-16.0); MCH 33.8 pg (25.0-35.0); MCHC 35.1 g/dL (31.0-37.0); MCV 96.4 fL (80.0-100.0); Macrocytosis Slight; Mean Platelet Volume 7.8; RBC 2.26 m/uL (3.80-5.40); RDW 16.6 % (11.5-15.5)
[2021-07-01 07:25] LABS: Prothrombin Time 10.5 sec (9.0-12.0); WBC 0.6 k/uL (3.8-10.6)
[2021-07-01 07:44] LABS: Partial Thromboplastin Time 21.1 sec (22.0-30.0)
[2021-07-01] MEDS: INSULIN ASPART (NovoLOG) 100 UNIT/ML VIAL SQ SCH ×3 (08:25→17:21)
[2021-07-01] MEDS: PANTOPRAZOLE 40 MG TABLET PO SCH ×2 (09:53→17:19)
[2021-07-01] MEDS: ACYCLOVIR 200 MG CAP PO SCH (09:53)
[2021-07-01] MEDS: allopurinoL 300 MG TAB PO SCH (09:53)
[2021-07-01] MEDS: LEVOFLOXACIN 500 MG TAB PO SCH (09:53)
[2021-07-01] MEDS: FLUCONAZOLE 100 MG TAB PO SCH (11:31)
[2021-07-01] MEDS: PARoxetine 10 MG TAB PO SCH (11:31)
[2021-07-01 11:47] LABS: Glucose,Whole Blood 103 mg/dL (75-99)
[2021-07-01 12:42] LABS: African American GFR (CKD) 114.8 (60.0-200.0); Albumin 3.2 g/dL (3.80-4.90); Albumin/Globulin Ratio 1.07 (1.60-3.17); Anion Gap 4.2 mmol/L (4.00-12.00); Calcium 8.3 mg/dL (8.7-10.3); Carbon Dioxide 29.8 mmol/L (21.6-31.8); Non-African American GFR(CKD) 99.1 (60.0-200.0); Phosphorus 3.6 mg/dL (2.4-5.1); Potassium 3.7 mmol/L (3.5-5.5); Total Bilirubin 0.7 mg/dL (0.3-1.2); Total Protein 6.2 g/dL (6.2-8.2); Uric Acid 2.4 mg/dL (2.9-7.7)
[2021-07-01] MEDS ORDERED: HYDROCORTISONE 1% CREAM 30 GM TUBE TOPICAL PRN (13:03)
[2021-07-01] MEDS: CHOLESTYRAMINE (WITH SUGAR) 4 GM PACKET PO SCH (14:30)
[2021-07-01 15:09] LABS: Platelet Count 9 k/uL (150-450)
--- NOTE | 2021-07-01 15:33 | XR ---
EXAMINATION TYPE: XR abdomen acute w cxr DATE OF EXAM: 07/01/2021 COMPARISON: NONE HISTORY: Fever and diarrhea TECHNIQUE: 4 views FINDINGS: There is no heart failure nor confluent pneumonic infiltrate. Costophrenic angles are clear . There are no hilar masses. There is right-sided central venous catheter with tip in the superior ve na cava. There is no sign of intestinal obstruction or pneumoperitoneum. Fecal pattern is normal. There is no evidence of a mass. There are a few phleboliths in the pelvis. Sacroiliac joints are intact. There ar e no pathologic calcifications over the kidneys. IMPRESSION: Normal chest. Nonacute abdomen.
[2021-07-01 16:22] LABS: Appearance,Urine Clear (Clear); Bilirubin,Urine Negative (Negative); Blood,Urine Negative (Negative); Color,Urine Light Yellow; Glucose,Urine (UA) Negative (Negative); Ketones,Urine Negative (Negative); Leukocyte Esterase,Urine Negative (Negative); Nitrite,Urine Negative (Negative); Protein,Urine Negative (Negative); Specific Gravity,Urine 1.005 (1.001-1.035); Urobilinogen,Urine <2.0 mg/dL (<2.0)
[2021-07-01 17:19] LABS: Glucose,Whole Blood 98 mg/dL (75-99)
[2021-07-01] MEDS: ACETAMINOPHEN TAB 325 MG TAB PO PRN (17:19)
[2021-07-01] MEDS: SODIUM CHLORIDE 0.9% 1,000 ML IV SCH (17:21)
--- NOTE | 2021-07-01 18:28 | P.PN ---
Subjective Progress Note Date: 07/01/21 Patient is doing fairly well today. She denies any nausea or diarrhea. No acute events overnight. Her platelet count is 9 this morning awaiting platelet transfusion Objective - Vital Signs Vital signs: Vital Signs Temp 98.8 F 07/01/21 17:24 Pulse 95 07/01/21 17:24 Resp 18 07/01/21 17:24 BP 111/67 07/01/21 17:24 Pulse Ox 99 07/01/21 17:24 Intake & Output 06/30/21 07/01/21 07/01/21 18:59 06:59 18:59 Intake Total 120 790 240 Balance 120 790 240 Intake: Intake, IV Titration 500 Amount Sodium Chloride 0.9% 1, 500 000 ml @ 50 mls/hr IV . Q20H [facility] Rx#:[id number] Oral 120 290 240 Blood Product 0 Platelet Pheresis Pas 0 Psoralen Unit [id number] Other: Voiding Method Toilet Toilet # Voids 2 1 3 # Bowel Movements 5 - Exam General: The patient is awake and alert, in no distress Eye: there is normal conjunctiva bilaterally. Neck: The neck is supple, there is no JVD. Cardiovascular: Normal S1-S2, no S3-S4, no murmurs. Respiratory: Lungs clear to auscultation bilaterally Gastrointestinal: Abdomen is soft, nontender Musculoskeletal: There is no pedal edema. Neurological:. Speech is normal. Skin: Skin is warm and dry - Labs CBC & Chem 7: 07/01/21 06:12 07/01/21 06:12 Labs: Abnormal Lab Results - Last 24 Hours (Table) 06/30/21 07/01/21 07/01/21 Range/Units 19:56 06:12 06:12 WBC 0.6 L* (3.8-10.6) k/uL RBC 2.26 L (3.80-5.40) m/uL Hgb 7.7 L (11.4-16.0) gm/dL Hct 21.8 L (34.0-46.0) % RDW 16.6 H (11.5-15.5) % Plt Count 9 L* (150-450) k/uL APTT 21.1 L (22.0-30.0) sec POC Glucose (mg/dL) 185 H (75-99) mg/dL Uric Acid (2.9-7.7) mg/dL Calcium (8.7-10.3) mg/dL ALT (8-44) U/L Albumin (3.80-4.90) g/dL Albumin/Globulin Ratio (1.60-3.17) g/dL 07/01/21 07/01/21 Range/Units 06:12 11:46 WBC (3.8-10.6) k/uL RBC (3.80-5.40) m/uL Hgb (11.4-16.0) gm/dL Hct (34.0-46.0) % RDW (11.5-15.5) % Plt Count (150-450) k/uL APTT (22.0-30.0) sec POC Glucose (mg/dL) 103 H (75-99) mg/dL Uric Acid 2.4 L (2.9-7.7) mg/dL Calcium 8.3 L (8.7-10.3) mg/dL ALT 69 H (8-44) U/L Albumin 3.20 L (3.80-4.90) g/dL Albumin/Globulin Ratio 1.07 L (1.60-3.17) g/dL Assessment and Plan Assessment: This is a 61-year-old female who presented to the hospital with abnormal lab work. Patient had extensive workup during this admission was found to have newly diagnosed AML. She was seen and evaluated by hematology and started on chemotherapy. Below is a list of her medical problems addressed during this hospitalization. 1. Newly diagnosed AML: Started on chemotherapy as directed by hematology. Patient tolerating treatment well. Close monitoring of lab work. Conservative transfusion as directed by hematology. 2. Pancytopenia related to above: Status post 4 units of PRBC and 1 unit of platelet transfusion during this admission managed by hematology 3. Underlying depression Today, I reviewed her medication list and lab work results. Repeat CBC in the morning. Awaiting clearance from hematology for discharge
[2021-07-01 21:05] LABS: Glucose,Whole Blood 117 mg/dL (75-99)
[2021-07-01] MEDS: ACYCLOVIR SODIUM 500 MG in SODIUM CHLORIDE 0.9% 100 ML IVPB SCH (23:39)
[2021-07-01] MEDS: PETROLATUM, WHITE 49 GM JELLY TOPICAL SCH (23:39)
[2021-07-02] MEDS: SALT AND SODA MOUTHWASH 1,000 ML PO SCH ×2 (05:38→12:54)
[2021-07-02 07:13] LABS: Glucose,Whole Blood 90 mg/dL (75-99)
[2021-07-02] MEDS: INSULIN ASPART (NovoLOG) 100 UNIT/ML VIAL SQ SCH ×2 (07:39→12:55)
[2021-07-02] MEDS: PARoxetine 10 MG TAB PO SCH (08:11)
[2021-07-02] MEDS: ACYCLOVIR SODIUM 500 MG in SODIUM CHLORIDE 0.9% 100 ML IVPB SCH (08:11)
[2021-07-02] MEDS: FLUCONAZOLE 100 MG TAB PO SCH (08:11)
[2021-07-02] MEDS: allopurinoL 300 MG TAB PO SCH (08:11)
[2021-07-02] MEDS: PANTOPRAZOLE 40 MG TABLET PO SCH (08:11)
[2021-07-02] MEDS: CHOLESTYRAMINE (WITH SUGAR) 4 GM PACKET PO SCH (08:12)
[2021-07-02] MEDS: PETROLATUM, WHITE 49 GM JELLY TOPICAL SCH (08:12)
[2021-07-02] MEDS ORDERED: ACYCLOVIR SODIUM IVPB SCH (09:00)
[2021-07-02] MEDS ORDERED: SODIUM CHLORIDE 0.9% IVPB SCH (09:00)
[2021-07-02 09:29] LABS: HCT 22.5 % (34.0-46.0); HGB 7.7 gm/dL (11.4-16.0); MCH 33.2 pg (25.0-35.0); MCHC 34.4 g/dL (31.0-37.0); MCV 96.7 fL (80.0-100.0); Mean Platelet Volume 9.8; RBC 2.32 m/uL (3.80-5.40); RDW 15.6 % (11.5-15.5)
[2021-07-02 09:45] LABS: Platelet Count 21 k/uL (150-450); WBC 0.2 k/uL (3.8-10.6)
[2021-07-02 09:55] LABS: ALT 55 U/L (4-34); AST 32 U/L (14-36); African American GFR (CKD) >90 (>60 ml/min/1.73 sqM); Albumin 3.2 g/dL (3.5-5.0); Alkaline Phosphatase 61 U/L (38-126); Anion Gap 6 mmol/L; Blood Urea Nitrogen 8 mg/dL (7-17); Calcium 8.5 mg/dL (8.4-10.2); Carbon Dioxide 25 mmol/L (22-30); Chloride 108 mmol/L (98-107); Globulin 3.2 g/dL; Glucose 111 mg/dL (74-99); Non-African American GFR(CKD) >90 (>60 ml/min/1.73 sqM); Potassium 3.5 mmol/L (3.5-5.1); Sodium 139 mmol/L (137-145); Total Bilirubin 0.7 mg/dL (0.2-1.3); Total Protein 6.4 g/dL (6.3-8.2)
[2021-07-02] MEDS ORDERED: LEVOFLOXACIN 500MG-D5W PMX 500 MG in DEXTROSE/WATER 1 100ML.BAG IVPB SCH (10:00)
[2021-07-02] MEDS ORDERED: DICYCLOMINE 10 MG CAP PO PRN (10:59)
--- NOTE | 2021-07-02 11:04 | P.PN ---
Subjective Progress Note Date: 07/02/21 Principal diagnosis: New Acute Leukemia Diarhea and decreased, stool thicker, PLatelets 21K, plan for increased diet and if tolerated will likely discharge today Objective - Vital Signs Vital signs: Vital Signs Temp 98.8 F 07/02/21 04:18 Pulse 104 H 07/02/21 08:30 Resp 14 07/02/21 08:30 BP 106/69 07/02/21 04:18 Pulse Ox 100 07/02/21 04:18 Intake & Output 07/01/21 07/02/21 07/02/21 18:59 06:59 18:59 Intake Total 494 350 Balance 494 350 Intake: Intake, IV Titration 350 Amount Acyclovir Sodium 500 mg 100 In Sodium Chloride 0.9% 100 ml @ 100 mls/hr IVPB Q8HR COUNTS INCLUDE 234 BEDS AT [facility] Rx#:[id number] Sodium Chloride 0.9% 1, 250 000 ml @ 50 mls/hr IV . Q20H [facility] Rx#:[id number] Oral 240 Blood Product 254 Platelet Pheresis Pas 254 Psoralen Unit [id number] Other: Voiding Method Toilet Toilet # Voids 3 3 # Bowel Movements 5 2 - Exam - Constitutional General appearance: Present: average body habitus, cooperative, no acute distress - EENT Eyes: Present: anicteric sclerae, EOMI ENT: Present: hearing grossly normal, normal oropharynx - Respiratory Respiratory: bilateral: CTA - Cardiovascular Rhythm: regular Heart sounds: normal: S1, S2 Abnormal Heart Sounds: Absent: systolic murmur, diastolic murmur, rub, S3 Gallop, S4 Gallop, click, other - Peripheral edema leg Peripheral Edema: bilateral: None - Gastrointestinal General gastrointestinal: Present: normal bowel sounds, soft - Integumentary Integumentary: Present: normal turgor, pale - Neurologic Neurologic: Present: CNII-XII intact - Musculoskeletal Musculoskeletal: Present: strength equal bilaterally - Psychiatric Psychiatric: Present: A&O x's 3, appropriate affect, intact judgment & insight - Labs CBC & Chem 7: 07/02/21 09:08 07/02/21 09:08 Labs: Abnormal Lab Results - Last 24 Hours (Table) 07/01/21 07/01/21 07/01/21 Range/Units 06:12 06:12 11:46 WBC (3.8-10.6) k/uL RBC (3.80-5.40) m/uL Hgb (11.4-16.0) gm/dL Hct (34.0-46.0) % RDW (11.5-15.5) % Plt Count 9 L* (150-450) k/uL Chloride (98-107) mmol/L Glucose (74-99) mg/dL POC Glucose (mg/dL) 103 H (75-99) mg/dL Uric Acid 2.4 L (2.9-7.7) mg/dL Calcium 8.3 L (8.7-10.3) mg/dL ALT 69 H (8-44) U/L Albumin 3.20 L (3.80-4.90) g/dL Albumin/Globulin Ratio 1.07 L (1.60-3.17) g/dL Stool Occult Blood (Negative) 07/01/21 07/01/21 07/02/21 Range/Units 21:03 21:31 09:08 WBC 0.2 L* (3.8-10.6) k/uL RBC 2.32 L (3.80-5.40) m/uL Hgb 7.7 L (11.4-16.0) gm/dL Hct 22.5 L (34.0-46.0) % RDW 15.6 H (11.5-15.5) % Plt Count 21 L D (150-450) k/uL Chloride (98-107) mmol/L Glucose (74-99) mg/dL POC Glucose (mg/dL) 117 H (75-99) mg/dL Uric Acid (2.9-7.7) mg/dL Calcium (8.7-10.3) mg/dL ALT (8-44) U/L Albumin (3.80-4.90) g/dL Albumin/Globulin Ratio (1.60-3.17) g/dL Stool Occult Blood Positive H (Negative) 07/02/21 Range/Units 09:08 WBC (3.8-10.6) k/uL RBC (3.80-5.40) m/uL Hgb (11.4-16.0) gm/dL Hct (34.0-46.0) % RDW (11.5-15.5) % Plt Count (150-450) k/uL Chloride 108 H (98-107) mmol/L Glucose 111 H (74-99) mg/dL POC Glucose (mg/dL) (75-99) mg/dL Uric Acid (2.9-7.7) mg/dL Calcium (8.7-10.3) mg/dL ALT 55 H (8-44) U/L Albumin 3.2 L (3.80-4.90) g/dL Albumin/Globulin Ratio (1.60-3.17) g/dL Stool Occult Blood (Negative) Assessment and Plan Plan: AML (acute myeloid leukemia) Narrative/Plan: AML per discussion with pathology,Status Post 7+3 induction treatment this admission Patient tolerated well Daily labs and aggressive supportive care Irradiated blood products CMV status is neg Current Visit: Yes Status: Acute Priority: High Code(s): C92.00 - ACUTE MYELOBLASTIC LEUKEMIA, NOT HAVING ACHIEVED REMISSION SNOMED Code(s): 36158826 Diarrhea: Improved - Concern of neutropenic colitis -Improving so increase diet Rash/Blister on left interior hand: - Question of herpetic etiology - With neutropenia will add coverage for viral Pancytopenia: Secondary to chemo and AML - Improved today and set for cbc in office saturday Plan: - Ok for discharge 0 Discussed mediations, expectations of side effects and management - ALl questions answered today - Follow-up appointment with Dr. Kelley in office tomorrow
[2021-07-02 12:47] VITALS: BP 116/79; PULSE 98; RESP 16; TEMP 98.4
--- NOTE | 2021-07-02 13:54 | P.DS ---
Providers Date of admission: 06/19/21 19:55 Expected date of discharge: 07/02/21 Attending physician: Vanessa Mart MD Consults: 06/19/21 19:54 Consult Physician Urgent Consulting Provider: Pablito Forte Consult Reason/Comments: Anemia, thrombocytopenia Do you want consulting provider notified?: Yes [facility]: This is a 61-year-old female who presented to the hospital with abnormal lab work. Patient had extensive workup during this admission was found to have newly diagnosed AML. She was seen and evaluated by hematology and started on chemotherapy. Below is a list of her medical problems addressed during this hospitalization. 1. Newly diagnosed AML: Status post induction chemotherapy as directed by hematology. Patient tolerated treatment well. 2. Pancytopenia related to above: Status post 4 units of PRBC and 1 unit of platelet transfusion during this admission managed by hematology. Pain on prophylaxis antibiotics, antiviral, and antifungal as directed by hematology. 3. Underlying depression Patient was seen and evaluated by me today. She is feeling fairly well. Platelet count improved to 21K. Diarrhea also improved significantly. Patient has an appointment to follow-up with Dr. Kelley in the office on Saturday. Patient Condition at Discharge: Serious Plan - Discharge Summary New Discharge Prescriptions: New Levofloxacin [Levaquin] 500 mg PO DAILY 1 Days #21 tab Acyclovir 400 mg PO BID #42 tablet Fluconazole [Diflucan] 100 mg PO DAILY #21 tab Ondansetron [Zofran] 8 mg PO Q6HR PRN #45 tab PRN Reason: Nausea Continue PARoxetine [Paxil] 10 mg PO DAILY Multivit-Min/Iron/Folic/Lutein [Centrum Silver Women Tablet] 1 tab PO DAILY Discharge Medication List PARoxetine [Paxil] 10 mg PO DAILY 12/17/18 [History] Multivit-Min/Iron/Folic/Lutein [Centrum Silver Women Tablet] 1 tab PO DAILY 06/19/21 [History] Acyclovir 400 mg PO BID #42 tablet 06/29/21 [Rx] Fluconazole [Diflucan] 100 mg PO DAILY #21 tab 06/29/21 [Rx] Levofloxacin [Levaquin] 500 mg PO DAILY 1 Days #21 tab 06/29/21 [Rx] Ondansetron [Zofran] 8 mg PO Q6HR PRN #45 tab 06/29/21 [Rx] Follow up Appointment(s)/Referral(s): Kelly Ahuja MD [Primary Care Provider] - Enedelia Kelley MD [STAFF PHYSICIAN] - 07/03/21 12:00 pm (this is for CBC check) Activity/Diet/Wound Care/Special Instructions: Activity as tolerated Diet as tolerated Very liberal fluid intake Keep all Oncology f/u appts Call Dr. Kelley [facility] for temp 100.5F Handwashing, avoid ill contacts Discharge Disposition: HOME SELF-CARE
--- NOTE | 2021-07-03 10:14 | CDI ---
Documentation Clarification Form Date: 07/03/2021 10:00:00 AM From: Елена Bain Admit Date: 06/19/2021 07:55:00 PM Patient Name: Domi Perrin Visit Number: [id number] Discharge Date: 07/02/2021 04:30:00 PM ATTENTION: The Clinical Documentation Specialists (CDI) and [facility] Coding Staff appreciate your assistance in clarifying documentation. Please respond to the clarification below the line at the bottom and electronically sign. The CDI & [facility] Coding staff will review the response and follow-up if needed. Please note: Queries are made part of the Legal Health Record. If you have any questions, please contact the author of this message via ITS. Dr. Joshua Barajas Per DCS Pancytopenia is documented related to above "Newly diagnosed AML status post inductin of chemotherapy as directed by hematology. Please clarify if the pancytopenia is due to the AML, due to the chemotherapy or both. Additional clarification regarding the etiology of pancytopenia is requested. History/Risk factors: AML induction of chemotherapy Clinical indicators: Labs: Day of admit 06/19/21 WBC 14.5, HCT 20.8, PLT 59 07/02/21 WBC 0.2, HCT 22.5 PLT 21 Treatment: RBC's and platelets Consult: hematology Please clarify the etiology of pancytopenia, if known: [ ] Pancytopenia due to chemotherapy [ ] Pancytopenia due to AML [ ] Pancytopenia due to other, please specify [ X ] Pancytopenia due to chemo and AML [ ] Other condition, please specify ____ [ ] Unable to determine MTDD
== END 2021-07-02 16:30 | disposition home or self-care (01) | DRG 834 ==
LOC: EC 16:25 → 4SSUR 19:55 → 5NMEDONC 06-20 15:14
PROVIDERS: ADMIT Internal Medicine; ATTEND Internal Medicine
PROC: 30233R1 Transfusion of Nonautologous Platelets into Peripheral Vein, Percutaneous Approach (ICD-10-PCS; 2021-06-19)
PROC: 07DR3ZX Extraction of Iliac Bone Marrow, Percutaneous Approach, Diagnostic (ICD-10-PCS; principal; 2021-06-21 12:15)
PROC: 02HV33Z Insertion of Infusion Device into Superior Vena Cava, Percutaneous Approach (ICD-10-PCS; 2021-06-23)
PROC: XW043B3 Introduction of Cytarabine and Daunorubicin Liposome Antineoplastic into Central Vein, Percutaneous Approach, New Technology Group 3 (ICD-10-PCS; 2021-06-26)
PROC: 30233N1 Transfusion of Nonautologous Red Blood Cells into Peripheral Vein, Percutaneous Approach (ICD-10-PCS; 2021-07-01)
DX: C92.00 Acute myeloblastic leukemia, not having achieved remission (principal); D61.810 Antineoplastic chemotherapy induced pancytopenia; R65.10 Systemic inflammatory response syndrome (SIRS) of non-infectious origin without acute organ dysfunction; E87.2 Acidosis; N39.0 Urinary tract infection, site not specified; R19.7 Diarrhea, unspecified; E11.65 Type 2 diabetes mellitus with hyperglycemia; T45.1X5A Adverse effect of antineoplastic and immunosuppressive drugs, initial encounter; F32.9 Major depressive disorder, single episode, unspecified; F41.9 Anxiety disorder, unspecified; Z79.899 Other long term (current) drug therapy; Z83.3 Family history of diabetes mellitus; R63.4 Abnormal weight loss; Z68.33 Body mass index [BMI] 33.0-33.9, adult
CPT/HCPCS: 36415; 36573; 38222; 71046; 74022; 80053; 81001; 81003; 82272; 82550; 83036; 83605; 83615; 83630; 83735; 84100; 84550; 85025; 85027; 85045; 85379; 85610; 85730; 86644; 86850; 86900; 86901; 86920; 87040; 87045; 87046; 87086; 87324; 87635; 93005; 93306; 96365; 96368; 99285

== ENCOUNTER 2021-07-03 13:06 | Inpatient (IN) | payer BC ==
[2021-07-03] MEDS ORDERED: ONDANSETRON 4 MG/2 ML VIAL IVP PRN (15:09)
--- NOTE | 2021-07-03 15:56 | XR ---
EXAMINATION TYPE: XR abdomen acute w cxr DATE OF EXAM: 07/03/2021 COMPARISON: 07/01/2021 INDICATION: Fever vomiting and mild TECHNIQUE: Acute abdominal series is performed with a frontal chest , upright and supine views of the abdomen. FINDINGS: Nonspecific bowel gas is present. There appears to be predominantly within the colon. Scattered air-f luid levels. Psoas margins are normal. No suspicious differential air-fluid levels are evident. No fr ee air is present. Organomegaly is not evident. Lung garrido are clear. As on the right knee superior vena cava region. IMPRESSION: 1. Nonspecific abdomen. There are some scattered air-fluid levels. Consider gastroenteritis.
[2021-07-03] MEDS: SODIUM CHLORIDE 0.9% 1,000 ML IV SCH (16:13)
[2021-07-03] MEDS: ACYCLOVIR SODIUM 500 MG in SODIUM CHLORIDE 0.9% 100 ML IVPB SCH (16:13)
[2021-07-03 16:39] LABS: Amorphous Sediment,Urine Moderate /hpf; Appearance,Urine Clear (Clear); Bacteria,Urine Rare /hpf; Bilirubin,Urine Negative (Negative); Blood,Urine Trace (Negative); Color,Urine Yellow; Glucose,Urine (UA) Negative (Negative); Hyaline Casts,Urine 3 /lpf (0-2); Ketones,Urine Negative (Negative); Leukocyte Esterase,Urine Negative (Negative); Mucus,Urine Few /hpf; Nitrite,Urine Negative (Negative); Protein,Urine Trace (Negative); RBC,Urine 1 /hpf (0-5); Specific Gravity,Urine 1.015 (1.001-1.035); Urobilinogen,Urine <2.0 mg/dL (<2.0); WBC,Urine 3 /hpf (0-5)
[2021-07-03 17:09] LABS: ALT 41 U/L (4-34); AST 26 U/L (14-36); African American GFR (CKD) >90 (>60 ml/min/1.73 sqM); Albumin 3.5 g/dL (3.5-5.0); Albumin/Globulin Ratio 1.1; Alkaline Phosphatase 69 U/L (38-126); Amylase 64 U/L (30-110); Anion Gap 8 mmol/L; Blood Urea Nitrogen 13 mg/dL (7-17); Calcium 8.6 mg/dL (8.4-10.2); Carbon Dioxide 23 mmol/L (22-30); Chloride 105 mmol/L (98-107); Globulin 3.3 g/dL; Glucose 137 mg/dL (74-99); LDH 515 U/L (313-618); Lipase 209 U/L (23-300); Magnesium 2.2 mg/dL (1.6-2.3); Non-African American GFR(CKD) >90 (>60 ml/min/1.73 sqM); Potassium 3.7 mmol/L (3.5-5.1); Sodium 136 mmol/L (137-145); Total Bilirubin 0.6 mg/dL (0.2-1.3); Total Protein 6.8 g/dL (6.3-8.2); Uric Acid 1.7 mg/dL (3.7-7.4)
[2021-07-03 17:15] LABS: HGB 7.2 gm/dL (11.4-16.0); MCH 33.9 pg (25.0-35.0); MCV 94.1 fL (80.0-100.0); Mean Platelet Volume 9.1; RBC 2.12 m/uL (3.80-5.40); RDW 15.8 % (11.5-15.5)
[2021-07-03 17:30] LABS: Platelet Count 15 k/uL (150-450); WBC 0.1 k/uL (3.8-10.6)
[2021-07-03 17:59] LABS: Prothrombin Time 10.3 sec (9.0-12.0)
[2021-07-03 18:07] LABS: Partial Thromboplastin Time 20.7 sec (22.0-30.0)
[2021-07-03] MEDS: SALT AND SODA MOUTHWASH 1,000 ML PO SCH ×2 (20:02→21:21)
--- NOTE | 2021-07-03 20:47 | P.PN ---
Progress Note - Text Progress Note Date: 07/03/21 Patient was seen in office today by Dr. Kelley, she had an episode tremors, loss of consciousness and immediate vomiting. Febrile at 100.4. She has been on Levaquin , diflucan, and acyclovir. Full garner cultures from 07/01/21 negative to date. BLE petechaie is noted, Erythema at site of pic, areas of eccymosis. She did have diarrhea a few days ago, although this has since resolved. CT head without contrast, repeat garner cultures, antiemetics, IV hydration, ID consult and Neuro consult. Telemetry ordered. Full Hand P to follow
[2021-07-03] MEDS: MIDOSTAURIN 25 MG PO SCH (21:20)
[2021-07-03] MEDS: LORazepam 2 MG/ML INJ IV PRN (21:47)
[2021-07-03] MEDS ORDERED: VANCOMYCIN IV PER PHARMACY 1 EACH MISC MISCELLANE PRN (22:45)
[2021-07-03] MEDS ORDERED: VANCOMYCIN 1,500 MG in SODIUM CHLORIDE 0.9% 250 ML IVPB ONE (23:15)
[2021-07-04] MEDS: ACYCLOVIR SODIUM 500 MG in SODIUM CHLORIDE 0.9% 100 ML IVPB SCH ×4 (00:28→23:14)
[2021-07-04] MEDS: CEFEPIME 2 GM in SODIUM CHLORIDE 0.9% 100 ML IVPB SCH ×3 (02:30→16:24)
[2021-07-04] MEDS ORDERED: diphenhydrAMINE 50 MG/ML 1 ML VIAL IVP STA (02:37)
--- NOTE | 2021-07-04 04:20 | CT ---
EXAMINATION TYPE: CT brain wo con DATE OF EXAM: 07/03/2021 COMPARISON: None HISTORY: fainting episode CT DLP: 1072.3 mGycm Automated exposure control for dose reduction was used. Images of the brain obtained with no contrast. There is mild cerebral atrophy appropriate for age. There is no mass effect nor midline shift. There is no sign of intracranial hemorrhage. The calvarium is intact. The skull base is intact. There is no rmal aeration of the mastoid sinuses. IMPRESSION: Mild atrophy. No acute intracranial abnormality.
[2021-07-04 05:57] LABS: MCH 32.9 pg (25.0-35.0); MCHC 36.2 g/dL (31.0-37.0); Mean Platelet Volume 9.5; Poikilocytosis Slight; RBC 2.12 m/uL (3.80-5.40); RDW 15.7 % (11.5-15.5)
[2021-07-04 05:58] LABS: WBC 0.3 k/uL (3.8-10.6)
[2021-07-04 06:02] LABS: HCT 19.3 % (34.0-46.0)
[2021-07-04 06:16] LABS: Platelet Count 21 k/uL (150-450)
[2021-07-04] MEDS: SODIUM CHLORIDE 0.9% 1,000 ML IV SCH ×2 (08:16→23:13)
[2021-07-04] MEDS: PANTOPRAZOLE 40 MG/10 ML VIAL IVP SCH (08:22)
[2021-07-04] MEDS: SALT AND SODA MOUTHWASH 1,000 ML PO SCH ×4 (08:23→21:10)
[2021-07-04] MEDS: MIDOSTAURIN 25 MG PO SCH ×2 (08:23→21:13)
[2021-07-04] MEDS: PARoxetine 10 MG TAB PO SCH (08:46)
[2021-07-04] MEDS: DICYCLOMINE 10 MG CAP PO PRN (08:46)
[2021-07-04] MEDS: VANCOMYCIN 1,500 MG in SODIUM CHLORIDE 0.9% 250 ML IVPB SCH ×2 (09:14→16:24)
--- NOTE | 2021-07-04 10:54 | P.HPIM ---
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 While in the office, patient was not feeling well. Her told me that she had an episode of sneezing then she vomited and was not responsive for a few seconds. He told me that she never lost consciousness. Prior to the episodes patient appears slightly shaky. He was not generalized tremor or seizure-like activity. Patient did not bite her tongue or lose control over her bowel or bladder. Patient was noted to have a low-grade fever of 100.4 and was directly admitted to the hospital for further evaluation. She was started on broad spectrum antibiotic. She is currently feeling fairly well. T-max since admission was 100.7. Culture sent and pending. Review of Systems Review of system: 14 points review of systems were obtained and were negative except to what were mentioned in the HPI. Past Medical History Past Medical History: Cancer, Osteoarthritis (OA) Additional Past Medical History / Comment(s): AML History of Any Multi-Drug Resistant Organisms: None Reported Past Surgical History: Breast Surgery, Orthopedic Surgery Additional Past Surgical History / Comment(s): breast biopsy, arthroscopy left and right knee Past Anesthesia/Blood Transfusion Reactions: No Reported Reaction Past Psychological History: Anxiety Smoking Status: Never smoker Past Alcohol Use History: None Reported Past Drug Use History: None Reported - Past Family History Father Family Medical History: Cancer Mother Family Medical History: Diabetes Mellitus Medications and Allergies Home Medications Medication Instructions Recorded Confirmed Type PARoxetine [Paxil] 10 mg PO DAILY 12/17/18 07/03/21 History Multivit-Min/Iron/Folic/Lutein 1 tab PO DAILY 06/19/21 07/03/21 History [Centrum Silver Women Tablet] Acyclovir 400 mg PO BID #42 tablet 06/29/21 07/03/21 Rx Fluconazole [Diflucan] 100 mg PO DAILY #21 tab 06/29/21 07/03/21 Rx Levofloxacin [Levaquin] 500 mg PO DAILY 1 Days #21 tab 06/29/21 07/03/21 Rx Ondansetron [Zofran] 8 mg PO Q6HR PRN #45 tab 06/29/21 07/03/21 Rx Allergies Allergy/AdvReac Type Severity Reaction Status Date / Time No Known Allergies Allergy Verified 07/03/21 15:39 Physical Exam Vitals: Vital Signs Temp Pulse Pulse Resp BP BP Pulse Ox 07/04/21 08:00 16 07/04/21 07:45 99.8 F H 115 H 17 101/62 99 07/04/21 04:00 99.5 F 93 16 104/68 96 07/04/21 02:31 100.5 F H 99 18 111/69 97 07/04/21 02:21 100.0 F H 104 H 16 116/71 98 07/04/21 00:22 98.9 F 91 16 118/70 99 07/03/21 22:45 99.7 F H 95 16 113/72 97 07/03/21 22:35 99.4 F 98 16 110/74 95 07/03/21 22:29 100.7 F H 104 H 16 110/72 99 07/03/21 20:05 98.8 F 105 H 20 106/65 100 07/03/21 20:00 105 H 16 07/03/21 13:47 98.5 F 107 H 16 103/60 100 Intake and Output 07/03/21 07/04/21 07/04/21 22:59 06:59 14:59 Intake Total 175 666 Balance 175 666 Intake: Intake, IV Titration 175 Amount Acyclovir Sodium 500 mg 100 In Sodium Chloride 0.9% 100 ml @ 100 mls/hr IVPB Q8HR [facility] Rx#:[id number] Sodium Chloride 0.9% 1, 75 000 ml @ 75 mls/hr IV . [id number] [facility] Rx#:[id number] Blood Product 0 666 Platelet Pheresis Pas 356 Psoralen Unit [id number] Rc Irr As1 Unit 0 310 [id number] General: The patient is awake and alert, in no distress Eye: there is normal conjunctiva bilaterally. Neck: The neck is supple, there is no JVD. Cardiovascular: Normal S1-S2, no S3-S4, no murmurs. Respiratory: Lungs clear to auscultation bilaterally Gastrointestinal: Abdomen is soft, nontender Musculoskeletal: There is no pedal edema. Neurological:. Speech is normal. Skin: Skin is warm and dry Results CBC & Chem 7: 07/04/21 04:57 07/03/21 16:13 Labs: Abnormal Lab Results - Last 24 Hours (Table) 07/03/21 07/03/21 07/03/21 Range/Units 16:13 16:13 16:13 WBC 0.1 L* (3.8-10.6) k/uL RBC 2.12 L (3.80-5.40) m/uL Hgb 7.2 L (11.4-16.0) gm/dL Hct 20.0 L (34.0-46.0) % RDW 15.8 H (11.5-15.5) % Plt Count 15 L* (150-450) k/uL APTT 20.7 L (22.0-30.0) sec Fibrinogen 537 H (200-500) mg/dL Sodium 136 L (137-145) mmol/L Glucose 137 H (74-99) mg/dL Uric Acid 1.7 L (3.7-7.4) mg/dL ALT 41 H (4-34) U/L Urine Protein (Negative) Urine Blood (Negative) Amorphous Sediment (None) /hpf Urine Bacteria (None) /hpf Hyaline Casts (0-2) /lpf Urine Mucus (None) /hpf Crossmatch 07/03/21 07/03/21 07/04/21 Range/Units 16:13 16:20 04:57 WBC 0.3 L* (3.8-10.6) k/uL RBC 2.12 L (3.80-5.40) m/uL Hgb 7.0 L (11.4-16.0) gm/dL Hct 19.3 L* (34.0-46.0) % RDW 15.7 H (11.5-15.5) % Plt Count 21 L (150-450) k/uL APTT (22.0-30.0) sec Fibrinogen (200-500) mg/dL Sodium (137-145) mmol/L Glucose (74-99) mg/dL Uric Acid (3.7-7.4) mg/dL ALT (4-34) U/L Urine Protein Trace H (Negative) Urine Blood Trace H (Negative) Amorphous Sediment Moderate H (None) /hpf Urine Bacteria Rare H (None) /hpf Hyaline Casts 3 H (0-2) /lpf Urine Mucus Few H (None) /hpf Crossmatch See Detail Thrombosis Risk Factor Assmnt - Choose All That Apply Each Factor Represents 1 point: Age 41-60 years, Obesity (BMI >25) Each Risk Factor Represents 2 Points: Malignancy Other congenital or acquired thrombophilia - If yes, enter type in comment: No Thrombosis Risk Factor Assessment Total Risk Factor Score: 4 Thrombosis Risk Factor Assessment Level: Moderate Risk Assessment and Plan Assessment: 1. Neutropenic fever: Patient started on IV vancomycin, IV cefepime, IV as a severe, and IV fluconazole. Infectious disease consulted for further evaluation. No clear source of infection. Chest x-ray and urinalysis unremark able. Blood culture pending. 2. Sepsis without septic shock: Continue IV fluid hydration. Lactic acid is normal 3. AML related and chemo-induced pancytopenia: Hematology following closely 4. Recently diagnosed AML status post induction chemotherapy 5. Episodes of tremors concerning for seizure: Less likely based on clinical presentation. Computed tomography scan of the head showed no acute findings. Neurology consulted and EEG ordered Today, I reviewed her medication list and lab work results. Continue current management. Appreciate the consult. I will continue to follow up on the patient closely with you.
--- NOTE | 2021-07-04 12:20 | P.CNNES ---
History of Present Illness Consult date: 07/04/21 Requesting physician: Marina Ann Reason for Consult: Hospital seizure activity in Dr. Kelley office. History of Present Illness: Patient is a 61-year-old female came to the hospital yesterday at 1:22 PM with neutropenic fever and acute leukemia. Patient has recently been diagnosed with AML in April 2021, status post induction chemotherapy requiring hospitalization last week. Patient was discharged from the hospital couple days ago and went to the medical records supervisor office yesterday for a first follow-up after induction therapy. Patient's has reported that she had an episode of sneezing then she vomited and was not responsive for a few seconds. Patient's has mentioned that she never lost consciousness. Patient states that she may have lost consciousness just for a short while, as she does not remember him hollering at her and calling the nurses. Prior to the episode patient appears slightly shaky. Patient does remember getting tunnel vision before she had a syncopal spell. No obvious seizure-like activity. Patient did not bite her tongue or lose control of bowels or urine. Patient was noted to be febrile with temperature 100.4. Patient was placed on Levaquin, Diflucan and acyclovir. Pancultures was recommended. Patient has bilateral lower extremity petechia. Erythema at site of port with area of ecchymosis. Patient did have diarrhea a few days ago. CT head showed mild atrophy, no acute process. X-ray of the abdomen shows nonspecific pattern. Some scattered air-fluid levels. Consider gastroenteritis. Blood test shows WBC 0.1 with hemoglobin 7.2 and platelets 15,000. Sodium 136 potassium 3.7, normal renal functions. AST is 26, ALT 41. UA negative. Patient denies any history of seizures. Does not have any history of tobacco use, alcoholism. Review of Systems Completely unremarkable except as above. Patient's leukemia was diagnosed, after she was noted to have chronic sinus issues, not going away with treatment. Blood tests showed evidence of severe neutropenia, anemia, which further testing that to the diagnosis of AML. Past Medical History Past Medical History: Cancer, Osteoarthritis (OA) Additional Past Medical History / Comment(s): AML History of Any Multi-Drug Resistant Organisms: None Reported Past Surgical History: Breast Surgery, Orthopedic Surgery Additional Past Surgical History / Comment(s): breast biopsy, arthroscopy left and right knee Past Anesthesia/Blood Transfusion Reactions: No Reported Reaction Past Psychological History: Anxiety Smoking Status: Never smoker Past Alcohol Use History: None Reported Past Drug Use History: None Reported - Past Family History Father Family Medical History: Cancer Mother Family Medical History: Diabetes Mellitus Medications and Allergies Home Medications Medication Instructions Recorded Confirmed Type PARoxetine [Paxil] 10 mg PO DAILY 12/17/18 07/03/21 History Multivit-Min/Iron/Folic/Lutein 1 tab PO DAILY 06/19/21 07/03/21 History [Centrum Silver Women Tablet] Acyclovir 400 mg PO BID #42 tablet 06/29/21 07/03/21 Rx Fluconazole [Diflucan] 100 mg PO DAILY #21 tab 06/29/21 07/03/21 Rx Levofloxacin [Levaquin] 500 mg PO DAILY 1 Days #21 tab 06/29/21 07/03/21 Rx Ondansetron [Zofran] 8 mg PO Q6HR PRN #45 tab 06/29/21 07/03/21 Rx Allergies Allergy/AdvReac Type Severity Reaction Status Date / Time No Known Allergies Allergy Verified 07/03/21 15:39 Physical Examination - Vital Signs Vital Signs: Vital Signs Temp Pulse Pulse Resp BP BP Pulse Ox 07/04/21 08:00 16 07/04/21 07:45 99.8 F H 115 H 17 101/62 99 07/04/21 04:00 99.5 F 93 16 104/68 96 07/04/21 02:31 100.5 F H 99 18 111/69 97 07/04/21 02:21 100.0 F H 104 H 16 116/71 98 07/04/21 00:22 98.9 F 91 16 118/70 99 07/03/21 22:45 99.7 F H 95 16 113/72 97 07/03/21 22:35 99.4 F 98 16 110/74 95 07/03/21 22:29 100.7 F H 104 H 16 110/72 99 07/03/21 20:05 98.8 F 105 H 20 106/65 100 07/03/21 20:00 105 H 16 07/03/21 13:47 98.5 F 107 H 16 103/60 100 Intake and Output 07/03/21 07/04/21 07/04/21 22:59 06:59 14:59 Intake Total 175 666 Balance 175 666 Intake: Intake, IV Titration 175 Amount Acyclovir Sodium 500 mg 100 In Sodium Chloride 0.9% 100 ml @ 100 mls/hr IVPB Q8HR [facility] Rx#:[id number] Sodium Chloride 0.9% 1, 75 000 ml @ 75 mls/hr IV . [id number] [facility] Rx#:[id number] Blood Product 0 666 Platelet Pheresis Pas 356 Psoralen Unit [id number] Rc Irr As1 Unit 0 310 [id number] Patient is a middle aged female, in no acute distress. Patient is alert awake oriented to time place and person. Speech and language functions are normal. Attention, concentration and fund of knowledge is adequat e. On cranial examination, pupils are round and reacting to light, visual garrido are full on confrontation, extraocular muscles are intact with no nystagmus. Face is symmetric, tongue protrudes to the midline. Palatal elevation and sensation normal, hearing and shoulder shrug normal, facial sensation normal. Shoulder shrug normal. On muscle strength testing, there is no pronator drift and the strength is normal in arms and legs distally and proximally. Deep tendon reflexes are 2+ to 3 all over and plantars downgoing. Sensory to touch is equal with no neglect. Cerebellar function showed no ataxia for [id number] testing. No dysdiadochokinesia. Tone and bulk of muscles normal. Patient has tremors for outstretched hands, which is something new since all this treatment has been s tarted. Gait normal. On general examination, there is no carotid bruit or murmur, S1-S2 audible. Abdomen is soft nontender. Chest is clear. Peripheral pulses are present. No edema. Results - Laboratory Findings CBC and BMP: 07/04/21 04:57 07/04/21 04:57 Abnormal Lab Findings: Abnormal Labs 07/03/21 07/03/21 07/03/21 16:13 16:13 16:13 WBC 0.1 L* RBC 2.12 L Hgb 7.2 L Hct 20.0 L RDW 15.8 H Plt Count 15 L* APTT 20.7 L Fibrinogen 537 H Sodium 136 L Glucose 137 H Uric Acid 1.7 L ALT 41 H Urine Protein Urine Blood Amorphous Sediment Urine Bacteria Hyaline Casts Urine Mucus Crossmatch 0807/03/21 07/04/21 16:13 16:20 04:57 WBC 0.3 L* RBC 2.12 L Hgb 7.0 L Hct 19.3 L* RDW 15.7 H Plt Count 21 L APTT Fibrinogen Sodium Glucose Uric Acid ALT Urine Protein Trace H Urine Blood Trace H Amorphous Sediment Moderate H Urine Bacteria Rare H Hyaline Casts 3 H Urine Mucus Few H Crossmatch See Detail Assessment and Plan Assessment: * Probable syncopal spell, less likely seizure. * Newly diagnosed AML, with severe leukopenia, and pancytopenia. Plan: * Patient will undergo EEG to rule out any epileptiform activity. * No antiepileptic medications indicated, unless EEG shows any epileptiform activity. * Hydration. * Medical management as per IM and hematology. * No other neurological workup indicated.
--- NOTE | 2021-07-04 13:28 | P.CONS ---
History of Present Illness - Reason for Consult Consult date: 07/04/21 Febrile Neutropenia - History of Present Illness Domi is a very pleasant female who recently was discharged after completion of Induction therapy for Acute Myeloid Leukemia. She presented to office yesterday for follow-up with primary oncologist and was referred back to hospital for fever, neurological syncopal episode, and vomiting. She has received One unit PRBC and One unit of pLatelets. Neurology, Infectious disease, and management following. Patient states she has always been in good health. She had the covid vaccin in . End of March she started to feel she had sinus infection and was seen by her pcp who treated her with antibiotics over the past couple months she has been worsening and seen pcp again who checked cbc and found macrocytic anemia and thrombocytopenia. 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 She started induction with 7+3 which was completed on 07/01/2021. T Max since admission 100.7 Review of Systems All systems: negative Constitutional: Reports as per HPI Past Medical History Past Medical History: Cancer, Osteoarthritis (OA) Additional Past Medical History / Comment(s): AML History of Any Multi-Drug Resistant Organisms: None Reported Past Surgical History: Breast Surgery, Orthopedic Surgery Additional Past Surgical History / Comment(s): breast biopsy, arthroscopy left and right knee Past Anesthesia/Blood Transfusion Reactions: No Reported Reaction Past Psychological History: Anxiety Smoking Status: Never smoker Past Alcohol Use History: None Reported Past Drug Use History: None Reported - Past Family History Father Family Medical History: Cancer Mother Family Medical History: Diabetes Mellitus Medications and Allergies Home Medications Medication Instructions Recorded Confirmed Type PARoxetine [Paxil] 10 mg PO DAILY 12/17/18 07/03/21 History Multivit-Min/Iron/Folic/Lutein 1 tab PO DAILY 06/19/21 07/03/21 History [Centrum Silver Women Tablet] Acyclovir 400 mg PO BID #42 tablet 06/29/21 07/03/21 Rx Fluconazole [Diflucan] 100 mg PO DAILY #21 tab 06/29/21 07/03/21 Rx Levofloxacin [Levaquin] 500 mg PO DAILY 1 Days #21 tab 06/29/21 07/03/21 Rx Ondansetron [Zofran] 8 mg PO Q6HR PRN #45 tab 06/29/21 07/03/21 Rx Allergies Allergy/AdvReac Type Severity Reaction Status Date / Time No Known Allergies Allergy Verified 07/03/21 15:39 Physical Exam Vitals: Vital Signs Temp Pulse Pulse Resp BP BP Pulse Ox 07/04/21 13:00 100.1 F H 109 H 16 101/64 98 07/04/21 08:00 16 07/04/21 07:45 99.8 F H 115 H 17 101/62 99 07/04/21 04:00 99.5 F 93 16 104/68 96 07/04/21 02:31 100.5 F H 99 18 111/69 97 07/04/21 02:21 100.0 F H 104 H 16 116/71 98 07/04/21 00:22 98.9 F 91 16 118/70 99 07/03/21 22:45 99.7 F H 95 16 113/72 97 07/03/21 22:35 99.4 F 98 16 110/74 95 07/03/21 22:29 100.7 F H 104 H 16 110/72 99 07/03/21 20:05 98.8 F 105 H 20 106/65 100 07/03/21 20:00 105 H 16 07/03/21 13:47 98.5 F 107 H 16 103/60 100 Intake and Output 07/03/21 07/04/21 07/04/21 22:59 06:59 14:59 Intake Total 175 666 Balance 175 666 Intake: Intake, IV Titration 175 Amount Acyclovir Sodium 500 mg 100 In Sodium Chloride 0.9% 100 ml @ 100 mls/hr IVPB Q8HR [facility] Rx#:[id number] Sodium Chloride 0.9% 1, 75 000 ml @ 75 mls/hr IV . [id number] [facility] Rx#:[id number] Blood Product 0 666 Platelet Pheresis Pas 356 Psoralen Unit [id number] Rc Irr As1 Unit 0 310 [id number] - Exam - Constitutional General appearance: Present: average body habitus, cooperative, no acute distress - EENT Eyes: Present: anicteric sclerae, EOMI ENT: Present: hearing grossly normal, normal oropharynx - Respiratory Respiratory: bilateral: CTA - Cardiovascular Rhythm: regular Heart sounds: normal: S1, S2 Abnormal Heart Sounds: Absent: systolic murmur, diastolic murmur, rub, S3 Gallop, S4 Gallop, click, other - Peripheral edema leg Peripheral Edema: bilateral: None - Gastrointestinal General gastrointestinal: Present: normal bowel sounds, soft - Integumentary Integumentary: Present: normal turgor, pale - Neurologic Neurologic: Present: CNII-XII intact - Musculoskeletal Musculoskeletal: Present: strength equal bilaterally - Psychiatric Psychiatric: Present: A&O x's 3, appropriate affect, intact judgment & insight Results CBC & Chem 7: 07/04/21 04:57 07/03/21 16:13 Labs: Abnormal Lab Results - Last 24 Hours (Table) 07/03/21 07/03/21 07/03/21 Range/Units 16:13 16:13 16:13 WBC 0.1 L* (3.8-10.6) k/uL RBC 2.12 L (3.80-5.40) m/uL Hgb 7.2 L (11.4-16.0) gm/dL Hct 20.0 L (34.0-46.0) % RDW 15.8 H (11.5-15.5) % Plt Count 15 L* (150-450) k/uL APTT 20.7 L (22.0-30.0) sec Fibrinogen 537 H (200-500) mg/dL Sodium 136 L (137-145) mmol/L Glucose 137 H (74-99) mg/dL Uric Acid 1.7 L (3.7-7.4) mg/dL ALT 41 H (4-34) U/L Urine Protein (Negative) Urine Blood (Negative) Amorphous Sediment (None) /hpf Urine Bacteria (None) /hpf Hyaline Casts (0-2) /lpf Urine Mucus (None) /hpf Crossmatch 07/03/21 07/03/21 07/04/21 Range/Units 16:13 16:20 04:57 WBC 0.3 L* (3.8-10.6) k/uL RBC 2.12 L (3.80-5.40) m/uL Hgb 7.0 L (11.4-16.0) gm/dL Hct 19.3 L* (34.0-46.0) % RDW 15.7 H (11.5-15.5) % Plt Count 21 L (150-450) k/uL APTT (22.0-30.0) sec Fibrinogen (200-500) mg/dL Sodium (137-145) mmol/L Glucose (74-99) mg/dL Uric Acid (3.7-7.4) mg/dL ALT (4-34) U/L Urine Protein Trace H (Negative) Urine Blood Trace H (Negative) Amorphous Sediment Moderate H (None) /hpf Urine Bacteria Rare H (None) /hpf Hyaline Casts 3 H (0-2) /lpf Urine Mucus Few H (None) /hpf Crossmatch See Detail Chest x-ray: report reviewed Abdominal x-ray: report reviewed Assessment and Plan (1) Neutropenic fever Current Visit: Yes Status: Acute Code(s): D70.9 - NEUTROPENIA, UNSPECIFIED; R50.81 - FEVER PRESENTING WITH CONDITIONS CLASSIFIED ELSEWHERE SNOMED Code(s): 271357431 (2) AML (acute myeloid leukemia) Current Visit: No Status: Acute Priority: High Code(s): C92.00 - ACUTE MYELOBLASTIC LEUKEMIA, NOT HAVING ACHIEVED REMISSION SNOMED Code(s): 28949280 (3) Anemia Current Visit: No Status: Acute Priority: High Code(s): D64.9 - ANEMIA, UNSPECIFIED SNOMED Code(s): 554684720 (4) Thrombocytopenia Current Visit: No Status: Acute Priority: High Code(s): D69.6 - THROMBOCYTOPENIA, UNSPECIFIED SNOMED Code(s): 474016833 Plan: Assessment and Recommendations: Febrile Neutropenia: - T Max 100.7 - Broad Spectrum ABX, AntiFungal, Anti VIRAL - ID to follow - Prophylaxic at discharge due to expected prolonged neutropenia - FULL GRESH[place] CULTURES Syncopal Episode: - Secondary to anemia versus Sepsis, versus other - Neuro to evaluated - CT head without contrast no sign of bleed Nausea and Vomiting and ABdominal Cramping: - Abdominal Imaging and Stool studies negative - Treatment for UTI - Bentyl PRN AML: - Start on Rydapt 50mg po BID - Plan to see Dr. Forte after dicharge PLAN: - Irradiated blood prodicts for hemoglobin less than 7, platelets less than 10K - Daily CBC.CMP.Lytes Physician Attest: I have completed the full history and physical and agree with above dictation, dictated as a ascribe.
[2021-07-04 13:33] LABS: African American GFR (CKD) 114.8 (60.0-200.0); Albumin 3.2 g/dL (3.80-4.90); Albumin/Globulin Ratio 1.19 (1.60-3.17); Anion Gap 5.8 mmol/L (4.00-12.00); BUN/Creat Ratio 16.67 Ratio (12.00-20.00); Calcium 7.7 mg/dL (8.7-10.3); Carbon Dioxide 26.2 mmol/L (21.6-31.8); Globulin 2.7 g/dL (1.6-3.3); Magnesium 2.1 mg/dL (1.5-2.4); Non-African American GFR(CKD) 99.1 (60.0-200.0); Phosphorus 2.7 mg/dL (2.4-5.1); Potassium 3.5 mmol/L (3.5-5.5); Total Bilirubin 0.8 mg/dL (0.3-1.2); Total Protein 5.9 g/dL (6.2-8.2)
[2021-07-04] MEDS: FLUCONAZOLE IN NACL,ISO-OSM 100 MG in SALINE 1 50ML.BAG IVPB SCH (13:55)
[2021-07-04 14:02] LABS: Uric Acid 1.8 mg/dL (2.9-7.7)
--- NOTE | 2021-07-04 18:49 | EEG ---
ELECTROENCEPHALOGRAM REPORT DATE OF SERVICE: 07/04/2021 PREAMBLE: This is a 61-year-old female with a syncopal spell, rule out seizure. EEG FINDINGS: This is a 21 channel routine EEG recording in a patient utilizing 10/20 international system with referential and bipolar montages. Background consists of well developed, well regulated, moderate voltage activity in 8-9 hertz alpha. Background is posterior dominant and reactive to eye opening and closing. Photic driving response was not seen. Some drowsiness was seen with appearance of bilaterally symmetric theta frequency rhythm. Deeper stages of sleep were not seen. No focal or generalized epileptiform activity was seen. IMPRESSION: This is a normal awake and drowsy EEG. No focal, lateralized, or epileptiform activity was seen. MMODL / IJN: [id number] /
[2021-07-04] MEDS: LORazepam 2 MG/ML INJ IV PRN (21:06)
--- NOTE | 2021-07-04 23:36 | P.CONS ---
History of Present Illness - Reason for Consult Consult date: 07/04/21 febrile neutropenia Requesting physician: Marina Ann - Chief Complaint not feeling well x 1 day - History of Present Illness History of present illness : Patient is 61-year-old female with recent diagnosis of AML in this patient who status post induction chemotherapy with the patient completed last week patient was discharged on Saturday patient did have a follow-up with her oncologist the next day Saturday patient was noticed in the office to be not feeling well patient did have an episode of sneezing and vomiting and was unresponsive for a few seconds with the symptom the patient was sent to the hospital for admission as the patient was noticed to have a fever 100.7 degree for night to rule out an infectious etiology patient on presentation the hospital was afebrile subsequently spiked a fever 100.7 F patient was slightly tachycardic but not hypoxic did have white count of 0.1 with evidence of neutropenia kidney function was normal liver enzymes are normal urine was negative brain CT did not show any bleed chest x-ray was not done patient was started on cefepime and vancomycin infectious was consulted for further management of antibiotic therapy patient did have mild elevation this morning he is feeling better her fever has improved patient denies having any headache no chest pain shortness of breath or cough no nausea no vomiting no abdominal pain no diarrhea no urinary symptoms patient did have peripheral IV Review of system: Positive point has been mentioned in HPI rest of the systems are negative Past medical history : Reviewed, documented below Past surgical history : Reviewed, documented below Social history: Reviewed, documented below Medications: Reviewed, as documented below GENERAL DESCRIPTION: Middle-aged female lying in bed, no distress. No tachypnea or accessory muscle of respiration use. HEENT: Shows Pallor , no scleral icterus. Oral mucous membrane is dry. NECK: Trachea central, no thyromegaly. LUNGS: Unlabored breathing. Clear to auscultation anteriorly. No wheeze or crackle. HEART: S1, S2, regular rate and rhythm. ABDOMEN: Soft, no tenderness , guarding or rigidity EXTREMITIES: No edema of feet. SKIN: No rash, no masses palpable. NEUROLOGICAL: The patient is awake, alert, oriented x3, mood and affect normal. 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 with the patient completed few days ago now presented to hospital with generalized weakness did have a fever but no obvious localizing signs and symptoms of infection patient chest was clear auscultation urine is negative and abdominal soft clinical examination Plan: 1-we will obtain chest x-ray PA and lateral 2-check a CRP and procalcitonin level 3-continue patient on cefepime and vancomycin We will follow on clinical condition and cultures to further adjust medication if needed Thank you for this consultation we will follow the patient along with you Past Medical History Past Medical History: Cancer, Osteoarthritis (OA) Additional Past Medical History / Comment(s): AML History of Any Multi-Drug Resistant Organisms: None Reported Past Surgical History: Breast Surgery, Orthopedic Surgery Additional Past Surgical History / Comment(s): breast biopsy, arthroscopy left and right knee Past Anesthesia/Blood Transfusion Reactions: No Reported Reaction Past Psychological History: Anxiety Smoking Status: Never smoker Past Alcohol Use History: None Reported Past Drug Use History: None Reported - Past Family History Father Family Medical History: Cancer Mother Family Medical History: Diabetes Mellitus Medications and Allergies Home Medications Medication Instructions Recorded Confirmed Type PARoxetine [Paxil] 10 mg PO DAILY 12/17/18 07/03/21 History Multivit-Min/Iron/Folic/Lutein 1 tab PO DAILY 06/19/21 07/03/21 History [Centrum Silver Women Tablet] Acyclovir 400 mg PO BID #42 tablet 06/29/21 07/03/21 Rx Fluconazole [Diflucan] 100 mg PO DAILY #21 tab 06/29/21 07/03/21 Rx Levofloxacin [Levaquin] 500 mg PO DAILY 1 Days #21 tab 06/29/21 07/03/21 Rx Ondansetron [Zofran] 8 mg PO Q6HR PRN #45 tab 06/29/21 07/03/21 Rx Allergies Allergy/AdvReac Type Severity Reaction Status Date / Time No Known Allergies Allergy Verified 07/03/21 15:39 Physical Exam Vitals: Vital Signs Temp Pulse Pulse Resp BP BP Pulse Ox 07/04/21 08:00 16 07/04/21 07:45 99.8 F H 115 H 17 101/62 99 07/04/21 04:00 99.5 F 93 16 104/68 96 07/04/21 02:31 100.5 F H 99 18 111/69 97 07/04/21 02:21 100.0 F H 104 H 16 116/71 98 07/04/21 00:22 98.9 F 91 16 118/70 99 07/03/21 22:45 99.7 F H 95 16 113/72 97 07/03/21 22:35 99.4 F 98 16 110/74 95 07/03/21 22:29 100.7 F H 104 H 16 110/72 99 07/03/21 20:05 98.8 F 105 H 20 106/65 100 07/03/21 20:00 105 H 16 07/03/21 13:47 98.5 F 107 H 16 103/60 100 Intake and Output 07/03/21 07/04/21 07/04/21 22:59 06:59 14:59 Intake Total 175 666 Balance 175 666 Intake: Intake, IV Titration 175 Amount Acyclovir Sodium 500 mg 100 In Sodium Chloride 0.9% 100 ml @ 100 mls/hr IVPB Q8HR [facility] Rx#:[id number] Sodium Chloride 0.9% 1, 75 000 ml @ 75 mls/hr IV . [id number] [facility] Rx#:[id number] Blood Product 0 666 Platelet Pheresis Pas 356 Psoralen Unit [id number] Rc Irr As1 Unit 0 310 [id number] Results CBC & Chem 7: 07/04/21 04:57 07/04/21 04:57 Labs: Abnormal Lab Results - Last 24 Hours (Table) 07/03/21 07/03/21 07/03/21 Range/Units 16:13 16:13 16:13 WBC 0.1 L* (3.8-10.6) k/uL RBC 2.12 L (3.80-5.40) m/uL Hgb 7.2 L (11.4-16.0) gm/dL Hct 20.0 L (34.0-46.0) % RDW 15.8 H (11.5-15.5) % Plt Count 15 L* (150-450) k/uL APTT 20.7 L (22.0-30.0) sec Fibrinogen 537 H (200-500) mg/dL Sodium 136 L (137-145) mmol/L Glucose 137 H (74-99) mg/dL Uric Acid 1.7 L (3.7-7.4) mg/dL ALT 41 H (4-34) U/L Urine Protein (Negative) Urine Blood (Negative) Amorphous Sediment (None) /hpf Urine Bacteria (None) /hpf Hyaline Casts (0-2) /lpf Urine Mucus (None) /hpf Crossmatch 07/03/21 07/03/21 07/04/21 Range/Units 16:13 16:20 04:57 WBC 0.3 L* (3.8-10.6) k/uL RBC 2.12 L (3.80-5.40) m/uL Hgb 7.0 L (11.4-16.0) gm/dL Hct 19.3 L* (34.0-46.0) % RDW 15.7 H (11.5-15.5) % Plt Count 21 L (150-450) k/uL APTT (22.0-30.0) sec Fibrinogen (200-500) mg/dL Sodium (137-145) mmol/L Glucose (74-99) mg/dL Uric Acid (3.7-7.4) mg/dL ALT (4-34) U/L Urine Protein Trace H (Negative) Urine Blood Trace H (Negative) Amorphous Sediment Moderate H (None) /hpf Urine Bacteria Rare H (None) /hpf Hyaline Casts 3 H (0-2) /lpf Urine Mucus Few H (None) /hpf Crossmatch See Detail
[2021-07-05] MEDS: CEFEPIME 2 GM in SODIUM CHLORIDE 0.9% 100 ML IVPB SCH ×5 (00:29→16:46)
[2021-07-05] MEDS: VANCOMYCIN 1,500 MG in SODIUM CHLORIDE 0.9% 250 ML IVPB SCH ×4 (00:31→16:47)
[2021-07-05] MEDS ORDERED: VANCOMYCIN TROUGH DUE 1 EACH MISC MISCELLANE ONE (07:00)
[2021-07-05 08:52] LABS: African American GFR (CKD) >90 (>60 ml/min/1.73 sqM); Anion Gap 5 mmol/L; Blood Urea Nitrogen 7 mg/dL (7-17); C Reactive Protein 8.9 mg/dL (<1.0); Calcium 7.8 mg/dL (8.4-10.2); Carbon Dioxide 24 mmol/L (22-30); Chloride 108 mmol/L (98-107); Glucose 106 mg/dL (74-99); Non-African American GFR(CKD) >90 (>60 ml/min/1.73 sqM); Potassium 3.6 mmol/L (3.5-5.1); Sodium 137 mmol/L (137-145)
[2021-07-05] MEDS: SODIUM CHLORIDE 0.9% 1,000 ML IV SCH ×2 (09:12→22:28)
[2021-07-05] MEDS: ACYCLOVIR SODIUM 500 MG in SODIUM CHLORIDE 0.9% 100 ML IVPB SCH ×3 (09:15→21:24)
[2021-07-05] MEDS: PANTOPRAZOLE 40 MG/10 ML VIAL IVP SCH (09:18)
[2021-07-05] MEDS: PARoxetine 10 MG TAB PO SCH (09:19)
[2021-07-05] MEDS: SALT AND SODA MOUTHWASH 1,000 ML PO SCH ×4 (09:19→21:23)
[2021-07-05] MEDS: MIDOSTAURIN 25 MG PO SCH ×2 (09:20→22:05)
[2021-07-05] MEDS: DICYCLOMINE 10 MG CAP PO PRN (09:24)
[2021-07-05] MEDS: FLUCONAZOLE IN NACL,ISO-OSM 100 MG in SALINE 1 50ML.BAG IVPB SCH (10:01)
[2021-07-05] MEDS: ACETAMINOPHEN TAB 325 MG TAB PO PRN ×2 (11:48→16:42)
--- NOTE | 2021-07-05 13:24 | XR ---
EXAMINATION TYPE: XR chest 2V DATE OF EXAM: 07/05/2021 COMPARISON: 06/19/2021 INDICATION: Fever TECHNIQUE: Single frontal view of the chest is obtained. FINDINGS: The heart size is normal. The pulmonary vasculature is normal. The lungs are clear. PICC line enters on the right appears to have the tip within the region of the distal superior vena c jacklyn. IMPRESSION: 1. No acute pulmonary process.
--- NOTE | 2021-07-05 13:31 | P.PN ---
Subjective Progress Note Date: 07/05/21 Patient is feeling fairly well today. She denies any complaints. CBC still pending. No acute events overnight. Objective - Vital Signs Vital signs: Vital Signs Temp 100.5 F H 07/05/21 12:38 Pulse 105 H 07/05/21 12:38 Resp 17 07/05/21 12:38 BP 111/59 07/05/21 12:38 Pulse Ox 100 07/05/21 12:38 Intake & Output 07/04/21 07/05/21 07/05/21 18:59 06:59 18:59 Intake Total 2150 100 Balance 2150 100 Intake: Intake, IV Titration 1250 Amount Acyclovir Sodium 500 mg 200 In Sodium Chloride 0.9% 100 ml @ 100 mls/hr IVPB Q8HR [facility] Rx#:[id number] Cefepime 2 gm In Sodium 200 Chloride 0.9% 100 ml @ 25 mls/hr IVPB Q8HR [facility] Rx# :[id number] Fluconazole in NaCl,Iso- 100 Osm 100 mg In Saline 1 50ml.bag @ 50 mls/hr IVPB DAILY [facility] Rx#:[id number] Sodium Chloride 0.9% 1, 250 000 ml @ 75 mls/hr IV . [id number] [facility] Rx#:[id number] Vancomycin 1,500 mg In 500 Sodium Chloride 0.9% 250 ml @ 125 mls/hr IVPB Q8H [facility] Rx#:[id number] Oral 900 100 Other: Voiding Method Toilet # Voids 4 1 # Bowel Movements 1 - Exam General: The patient is awake and alert, in no distress Eye: there is normal conjunctiva bilaterally. Neck: The neck is supple, there is no JVD. Cardiovascular: Normal S1-S2, no S3-S4, no murmurs. Respiratory: Lungs clear to auscultation bilaterally Gastrointestinal: Abdomen is soft, nontender Musculoskeletal: There is no pedal edema. Neurological:. Speech is normal. Skin: Skin is warm and dry - Labs CBC & Chem 7: 07/04/21 04:57 07/05/21 06:47 Labs: Abnormal Lab Results - Last 24 Hours (Table) 07/04/21 07/05/21 Range/Units 04:57 06:47 Chloride 108 H (98-107) mmol/L Glucose 106 H (74-99) mg/dL Uric Acid 1.8 L (2.9-7.7) mg/dL Calcium 7.7 L 7.8 L (8.7-10.3) mg/dL C-Reactive Protein 8.9 H (<1.0) mg/dL Total Protein 5.9 L (6.2-8.2) g/dL Albumin 3.20 L (3.80-4.90) g/dL Albumin/Globulin Ratio 1.19 L (1.60-3.17) g/dL Microbiology - Last 24 Hours (Table) 07/03/21 16:26 Blood Culture - Preliminary Blood No Growth after 24 hours 07/03/21 16:13 Blood Culture - Preliminary Blood No Growth after 24 hours Assessment and Plan Assessment: 1. Neutropenic fever: Patient started on IV vancomycin, IV cefepime, IV as a severe, and IV fluconazole. Infectious disease consulted for further evaluation. No clear source of infection. Chest x-ray and urinalysis unremarkable. Blood culture negative to date. 2. Sepsis without septic shock: Continue IV fluid hydration. Lactic acid is normal 3. AML related and chemo-induced pancytopenia: Hematology following closely 4. Recently diagnosed AML status post induction chemotherapy 5. Episodes of tremors concerning for seizure: Less likely based on clinical presentation. Computed tomography scan of the head showed no acute findings. Neurology consulted and EEG ordered Today, I reviewed her medication list and lab work results. Discharge planning per primary team. I will continue to follow up on the patient closely with you.
[2021-07-05 14:12] LABS: MCH 31.9 pg (25.0-35.0); MCHC 34.5 g/dL (31.0-37.0); MCV 92.4 fL (80.0-100.0); Mean Platelet Volume 8.6; RBC 2.06 m/uL (3.80-5.40); RDW 15.7 % (11.5-15.5)
[2021-07-05 14:34] LABS: HGB 6.6 gm/dL (11.4-16.0)
[2021-07-05 14:35] LABS: Platelet Count 16 k/uL (150-450); WBC 0.2 k/uL (3.8-10.6)
--- NOTE | 2021-07-05 14:55 | P.PN ---
Subjective Progress Note Date: 07/05/21 Principal diagnosis: febrile neutropenia low grade 100.5 fevers, cultures negative to date, cramping has improved, and she is tolerating food better today Objective - Vital Signs Vital signs: Vital Signs Temp 100.5 F H 07/05/21 12:38 Pulse 105 H 07/05/21 12:38 Resp 17 07/05/21 12:38 BP 111/59 07/05/21 12:38 Pulse Ox 100 07/05/21 12:38 Intake & Output 07/04/21 07/05/21 07/05/21 18:59 06:59 18:59 Intake Total 2150 100 Balance 2150 100 Intake: Intake, IV Titration 1250 Amount Acyclovir Sodium 500 mg 200 In Sodium Chloride 0.9% 100 ml @ 100 mls/hr IVPB Q8HR [facility] Rx#:[id number] Cefepime 2 gm In Sodium 200 Chloride 0.9% 100 ml @ 25 mls/hr IVPB Q8HR [facility] Rx# :[id number] Fluconazole in NaCl,Iso- 100 Osm 100 mg In Saline 1 50ml.bag @ 50 mls/hr IVPB DAILY [facility] Rx#:[id number] Sodium Chloride 0.9% 1, 250 000 ml @ 75 mls/hr IV . [id number] [facility] Rx#:[id number] Vancomycin 1,500 mg In 500 Sodium Chloride 0.9% 250 ml @ 125 mls/hr IVPB Q8H [facility] Rx#:[id number] Oral 900 100 Other: Voiding Method Toilet Toilet # Voids 4 1 # Bowel Movements 1 - Exam - Constitutional General appearance: Present: average body habitus, cooperative, no acute distress - EENT Eyes: Present: anicteric sclerae, EOMI ENT: Present: hearing grossly normal, normal oropharynx - Respiratory Respiratory: bilateral: CTA - Cardiovascular Rhythm: regular Heart sounds: normal: S1, S2 Abnormal Heart Sounds: Absent: systolic murmur, diastolic murmur, rub, S3 Gallop, S4 Gallop, click, other - Peripheral edema leg Peripheral Edema: bilateral: None - Gastrointestinal General gastrointestinal: Present: normal bowel sounds, soft - Integumentary Integumentary: Present: normal turgor, pale - Neurologic Neurologic: Present: CNII-XII intact - Musculoskeletal Musculoskeletal: Present: strength equal bilaterally - Psychiatric Psychiatric: Present: A&O x's 3, appropriate affect, intact judgment & insigh - Labs CBC & Chem 7: 07/05/21 06:47 07/05/21 06:47 Labs: Abnormal Lab Results - Last 24 Hours (Table) 07/03/21 07/05/21 07/05/21 Range/Units 16:13 06:47 06:47 WBC 0.2 L* (3.8-10.6) k/uL RBC 2.06 L (3.80-5.40) m/uL Hgb 6.6 L* (11.4-16.0) gm/dL Hct 19.0 L* (34.0-46.0) % RDW 15.7 H (11.5-15.5) % Plt Count 16 L* (150-450) k/uL Chloride 108 H (98-107) mmol/L Glucose 106 H (74-99) mg/dL Calcium 7.8 L (8.4-10.2) mg/dL C-Reactive Protein 8.9 H (<1.0) mg/dL Crossmatch See Detail Microbiology - Last 24 Hours (Table) 07/03/21 16:26 Blood Culture - Preliminary Blood No Growth after 24 hours 07/03/21 16:13 Blood Culture - Preliminary Blood No Growth after 24 hours Assessment and Plan (1) Neutropenic fever Current Visit: Yes Status: Acute Code(s): D70.9 - NEUTROPENIA, UNSPECIFIED; R50.81 - FEVER PRESENTING WITH CONDITIONS CLASSIFIED ELSEWHERE SNOMED Code(s): 875656575 (2) AML (acute myeloid leukemia) Current Visit: No Status: Acute Priority: High Code(s): C92.00 - ACUTE MYELOBLASTIC LEUKEMIA, NOT HAVING ACHIEVED REMISSION SNOMED Code(s): 36378226 (3) Anemia Current Visit: No Status: Acute Priority: High Code(s): D64.9 - ANEMIA, UNSPECIFIED SNOMED Code(s): 044607765 (4) Thrombocytopenia Current Visit: No Status: Acute Priority: High Code(s): D69.6 - THROMBOCYTOPENIA, UNSPECIFIED SNOMED Code(s): 294911948 Plan: Assessment and Recommendations: Febrile Neutropenia: - T Max 100.7 - Broad Spectrum ABX, AntiFungal, Anti VIRAL - ID to follow - Prophylaxic at discharge due to expected prolonged neutropenia - FULL GRESH[place] CULTURES Syncopal Episode: - Secondary to anemia versus Sepsis, versus other - Neuro to evaluated - CT head without contrast no sign of bleed Nausea and Vomiting and ABdominal Cramping: - Abdominal Imaging and Stool studies negative - Treatment for UTI - Bentyl PRN AML: - Start on Rydapt 50mg po BID - Plan to see Dr. Forte after dicharge PLAN: - Irradiated blood prodicts for hemoglobin less than 7, platelets less than 10K - Daily CBC.CMP.Lytes - Transfuse 1 unit PRBC today - COntinue aggressive supportive care Cultures negative to date and clinically doing better, monitor
--- NOTE | 2021-07-05 15:13 | PN ---
PROGRESS NOTE DATE OF SERVICE: 07/05/2021. REASON FOR FOLLOWUP: Febrile neutropenia. INTERVAL HISTORY: Patient overall fever pattern has improved. The last temperature was 100.1 yesterday afternoon. No fever since then. The patient is feeling slightly better, breathing comfortably. Denies having any chest pain, shortness of breath or cough. No nausea, no abdominal pain. No diarrhea. Did have petechial rash to the right leg, slightly worse. PHYSICAL EXAMINATION: Blood pressure 113/70 with a pulse of 99, temperature 98.9. She is 99% on room air. General description is a middle-aged female up in the bed in no distress. Respiratory system: Unlabored breathing, clear to auscultation anteriorly. Heart S1, S2. Regular rate and rhythm. Abdomen soft, no tenderness. Extremities: No edema of the feet. LABS: Creatinine 0.54. Blood culture has been negative. Chest x-ray done this morning, report is pending. DIAGNOSTIC IMPRESSION AND PLAN: Patient with febrile neutropenia in this patient with recent diagnosis of AML status post induction chemotherapy so far no obvious focus of infection. Patient is covered on cefepime and Vanco that will be continued while waiting for the culture to finalize and continue supportive care. MMODL / IJN: [id number] /
--- NOTE | 2021-07-05 16:34 | P.PN ---
Subjective Progress Note Date: 07/05/21 No further syncopal spells. Patient is doing well. No headache. No dizziness. Objective - Vital Signs Vital signs: Vital Signs Temp 100.5 F H 07/05/21 12:38 Pulse 105 H 07/05/21 12:38 Resp 17 07/05/21 12:38 BP 111/59 07/05/21 12:38 Pulse Ox 100 07/05/21 12:38 Intake & Output 07/04/21 07/05/21 07/05/21 18:59 06:59 18:59 Intake Total 2150 100 Balance 2150 100 Intake: Intake, IV Titration 1250 Amount Acyclovir Sodium 500 mg 200 In Sodium Chloride 0.9% 100 ml @ 100 mls/hr IVPB Q8HR [facility] Rx#:[id number] Cefepime 2 gm In Sodium 200 Chloride 0.9% 100 ml @ 25 mls/hr IVPB Q8HR [facility] Rx# :[id number] Fluconazole in NaCl,Iso- 100 Osm 100 mg In Saline 1 50ml.bag @ 50 mls/hr IVPB DAILY [facility] Rx#:[id number] Sodium Chloride 0.9% 1, 250 000 ml @ 75 mls/hr IV . [id number] [facility] Rx#:[id number] Vancomycin 1,500 mg In 500 Sodium Chloride 0.9% 250 ml @ 125 mls/hr IVPB Q8H [facility] Rx#:[id number] Oral 900 100 Other: Voiding Method Toilet # Voids 4 1 # Bowel Movements 1 - Exam Mental status normal. Detailed testing deferred. - Labs CBC & Chem 7: 07/05/21 06:47 07/05/21 06:47 Labs: Abnormal Lab Results - Last 24 Hours (Table) 07/04/21 07/05/21 Range/Units 04:57 06:47 Chloride 108 H (98-107) mmol/L Glucose 106 H (74-99) mg/dL Uric Acid 1.8 L (2.9-7.7) mg/dL Calcium 7.7 L 7.8 L (8.7-10.3) mg/dL C-Reactive Protein 8.9 H (<1.0) mg/dL Total Protein 5.9 L (6.2-8.2) g/dL Albumin 3.20 L (3.80-4.90) g/dL Albumin/Globulin Ratio 1.19 L (1.60-3.17) g/dL Microbiology - Last 24 Hours (Table) 07/03/21 16:26 Blood Culture - Preliminary Blood No Growth after 24 hours 07/03/21 16:13 Blood Culture - Preliminary Blood No Growth after 24 hours Assessment and Plan Assessment: * Probable syncopal spell, less likely seizure. * Newly diagnosed AML, with severe leukopenia, and pancytopenia. Plan: * EEG was normal. No epileptiform activity seen. No indication for ant iepileptic medication. * Hydration. * Medical management as per IM and hematology. * No other neurological workup indicated. * We will sign off. Please reconsult neurology if any other concerns.
[2021-07-05] MEDS: LORazepam 2 MG/ML INJ IV PRN (21:20)
[2021-07-06] MEDS: CEFEPIME 2 GM in SODIUM CHLORIDE 0.9% 100 ML IVPB SCH ×2 (00:35→08:35)
[2021-07-06] MEDS: VANCOMYCIN 1,500 MG in SODIUM CHLORIDE 0.9% 250 ML IVPB SCH ×2 (00:36→08:36)
[2021-07-06] MEDS: ACYCLOVIR SODIUM 500 MG in SODIUM CHLORIDE 0.9% 100 ML IVPB SCH ×3 (04:49→21:26)
[2021-07-06 06:30] LABS: HGB 7.2 gm/dL (11.4-16.0); MCH 32.2 pg (25.0-35.0); MCHC 36.6 g/dL (31.0-37.0); MCV 88.1 fL (80.0-100.0); RBC 2.24 m/uL (3.80-5.40); RDW 15.1 % (11.5-15.5)
[2021-07-06 06:32] LABS: HCT 19.7 % (34.0-46.0); Platelet Count 15 k/uL (150-450); WBC 0.2 k/uL (3.8-10.6)
[2021-07-06] MEDS: FLUCONAZOLE IN NACL,ISO-OSM 100 MG in SALINE 1 50ML.BAG IVPB SCH (08:35)
[2021-07-06] MEDS: MIDOSTAURIN 25 MG PO SCH ×2 (08:36→21:40)
[2021-07-06] MEDS: SALT AND SODA MOUTHWASH 1,000 ML PO SCH ×4 (08:36→21:40)
[2021-07-06] MEDS: PARoxetine 10 MG TAB PO SCH (08:37)
[2021-07-06] MEDS: PANTOPRAZOLE 40 MG TABLET PO SCH (08:37)
[2021-07-06] MEDS: DICYCLOMINE 10 MG CAP PO PRN (08:48)
[2021-07-06] MEDS: SODIUM CHLORIDE 0.9% 1,000 ML IV SCH (13:45)
--- NOTE | 2021-07-06 14:49 | P.PN ---
Subjective Progress Note Date: 07/06/21 Patient is feeling fairly well today. She denies any complaints. No acute events overnight. Objective - Vital Signs Vital signs: Vital Signs Temp 99.5 F 07/06/21 13:00 Pulse 105 H 07/06/21 13:00 Resp 17 07/06/21 13:00 BP 113/65 07/06/21 13:00 Pulse Ox 100 07/06/21 13:00 Intake & Output 07/05/21 07/06/21 07/06/21 18:59 06:59 18:59 Intake Total 2830 590 Balance 2830 590 Intake: Intake, IV Titration 1700 Amount Acyclovir Sodium 500 mg 100 In Sodium Chloride 0.9% 100 ml @ 100 mls/hr IVPB Q8H [facility] Rx#:[id number] Cefepime 2 gm In Sodium 200 Chloride 0.9% 100 ml @ 25 mls/hr IVPB Q8HR [facility] Rx# :[id number] Sodium Chloride 0.9% 1, 900 000 ml @ 75 mls/hr IV . [id number] [facility] Rx#:[id number] Vancomycin 1,500 mg In 500 Sodium Chloride 0.9% 250 ml @ 125 mls/hr IVPB Q8H [facility] Rx#:[id number] Oral 820 590 Blood Product 310 Rc Irr As1 Unit 310 [id number] Other: Voiding Method Toilet Toilet # Voids 5 2 - Exam General: The patient is awake and alert, in no distress Eye: there is normal conjunctiva bilaterally. Neck: The neck is supple, there is no JVD. Cardiovascular: Normal S1-S2, no S3-S4, no murmurs. Respiratory: Lungs clear to auscultation bilaterally Gastrointestinal: Abdomen is soft, nontender Musculoskeletal: There is no pedal edema. Neurological:. Speech is normal. Skin: Skin is warm and dry - Labs CBC & Chem 7: 07/06/21 06:10 07/05/21 06:47 Labs: Abnormal Lab Results - Last 24 Hours (Table) 07/03/21 07/05/21 07/05/21 Range/Units 16:13 06:47 20:20 WBC (3.8-10.6) k/uL RBC (3.80-5.40) m/uL Hgb (11.4-16.0) gm/dL Hct (34.0-46.0) % Plt Count (150-450) k/uL Phosphorus 2.0 L (2.5-4.5) mg/dL Procalcitonin 0.12 H (0.02-0.09) ng/mL Crossmatch See Detail 07/06/21 Range/Units 06:10 WBC 0.2 L* (3.8-10.6) k/uL RBC 2.24 L (3.80-5.40) m/uL Hgb 7.2 L (11.4-16.0) gm/dL Hct 19.7 L* (34.0-46.0) % Plt Count 15 L* (150-450) k/uL Phosphorus (2.5-4.5) mg/dL Procalcitonin (0.02-0.09) ng/mL Crossmatch Microbiology - Last 24 Hours (Table) 07/05/21 18:10 Urine Culture - Preliminary Urine,Voided 07/03/21 16:26 Blood Culture - Preliminary Blood No Growth after 48 hours 07/03/21 16:13 Blood Culture - Preliminary Blood No Growth after 48 hours Assessment and Plan Assessment: 1. Neutropenic fever: Patient started on IV vancomycin, IV cefepime, IV as a severe, and IV fluconazole. Infectious disease consulted for further evaluation. No clear source of infection. Chest x-ray and urinalysis unremarkable. Blood culture negative to date. 2. Sepsis without septic shock: Improved with IV fluid hydration and possibly some antibiotic. Lactic acid is normal 3. AML related and chemo-induced pancytopenia: Hematology following closely 4. Recently diagnosed AML status post induction chemotherapy 5. Episodes of tremors concerning for seizure: Less likely based on clinical presentation. Computed tomography scan of the head showed no acute findings. Neurology consulted and EEG ordered Today, I reviewed her medication list and lab work results. Discharge planning per primary team. I will continue to follow up on the patient closely with you.
[2021-07-06 15:30] LABS: African American GFR (CKD) 121.9 (60.0-200.0); Albumin/Globulin Ratio 1.15 (1.60-3.17); Anion Gap 7.3 mmol/L (4.00-12.00); Calcium 7.3 mg/dL (8.7-10.3); Carbon Dioxide 25.7 mmol/L (21.6-31.8); Globulin 2.6 g/dL (1.6-3.3); Magnesium 1.7 mg/dL (1.5-2.4); Non-African American GFR(CKD) 105.2 (60.0-200.0); Phosphorus 1.5 mg/dL (2.4-5.1); Potassium 3.5 mmol/L (3.5-5.5); Total Bilirubin 0.6 mg/dL (0.3-1.2); Total Protein 5.6 g/dL (6.2-8.2)
--- NOTE | 2021-07-06 15:37 | P.PN ---
Subjective Progress Note Date: 07/06/21 Principal diagnosis: febrile neutropenia She is feeling better, She has been afebrile 24 hours. She does have erythema like rash on forehead, left and right patches on arms and lower extremity petechaie is increased and darker today, denies pain, itching. Cramping in abdomen has resolved for the most part, she stated she eats slowly and uses the bentyl and finds relief with this. Discussed case with Dr. Marcano from [place] and will likely discharge with Augmentin, instead of levaquin to broaden the spectrum. Objective - Vital Signs Vital signs: Vital Signs Temp 99.5 F 07/06/21 13:00 Pulse 105 H 07/06/21 13:00 Resp 17 07/06/21 13:00 BP 113/65 07/06/21 13:00 Pulse Ox 100 07/06/21 13:00 Intake & Output 07/05/21 07/06/21 07/06/21 18:59 06:59 18:59 Intake Total 2830 590 Balance 2830 590 Intake: Intake, IV Titration 1700 Amount Acyclovir Sodium 500 mg 100 In Sodium Chloride 0.9% 100 ml @ 100 mls/hr IVPB Q8H [facility] Rx#:[id number] Cefepime 2 gm In Sodium 200 Chloride 0.9% 100 ml @ 25 mls/hr IVPB Q8HR [facility] Rx# :[id number] Sodium Chloride 0.9% 1, 900 000 ml @ 75 mls/hr IV . [id number] [facility] Rx#:[id number] Vancomycin 1,500 mg In 500 Sodium Chloride 0.9% 250 ml @ 125 mls/hr IVPB Q8H [facility] Rx#:[id number] Oral 820 590 Blood Product 310 Rc Irr As1 Unit 310 [id number] Other: Voiding Method Toilet Toilet # Voids 5 2 - Exam - Constitutional General appearance: Present: average body habitus, cooperative, no acute distress - EENT Eyes: Present: anicteric sclerae, EOMI ENT: Present: hearing grossly normal, normal oropharynx - Respiratory Respiratory: bilateral: CTA - Cardiovascular Rhythm: regular Heart sounds: normal: S1, S2 Abnormal Heart Sounds: Absent: systolic murmur, diastolic murmur, rub, S3 Gallop, S4 Gallop, click, other - Peripheral edema leg Peripheral Edema: bilateral: None - Gastrointestinal General gastrointestinal: Present: normal bowel sounds, soft - Integumentary Integumentary: Present: normal turgor, pale, areas of rashing on forehead and arms, lower extremity RLE petechaei is darker and pronouced today - Neurologic Neurologic: Present: CNII-XII intact - Musculoskeletal Musculoskeletal: Present: strength equal bilaterally - Psychiatric Psychiatric: Present: A&O x's 3, appropriate affect, intact judgment & insigh - Labs CBC & Chem 7: 07/06/21 06:10 07/06/21 06:10 Labs: Abnormal Lab Results - Last 24 Hours (Table) 07/03/21 07/05/21 07/05/21 Range/Units 16:13 06:47 20:20 WBC (3.8-10.6) k/uL RBC (3.80-5.40) m/uL Hgb (11.4-16.0) gm/dL Hct (34.0-46.0) % Plt Count (150-450) k/uL BUN (9.0-27.0) mg/dL Creatinine (0.6-1.5) mg/dL Glucose (70-110) mg/dL Calcium (8.7-10.3) mg/dL Phosphorus 2.0 L (2.5-4.5) mg/dL Total Protein (6.2-8.2) g/dL Albumin (3.80-4.90) g/dL Albumin/Globulin Ratio (1.60-3.17) g/dL Procalcitonin 0.12 H (0.02-0.09) ng/mL Crossmatch See Detail 07/06/21 07/06/21 Range/Units 06:10 06:10 WBC 0.2 L* (3.8-10.6) k/uL RBC 2.24 L (3.80-5.40) m/uL Hgb 7.2 L (11.4-16.0) gm/dL Hct 19.7 L* (34.0-46.0) % Plt Count 15 L* (150-450) k/uL BUN 8.0 L (9.0-27.0) mg/dL Creatinine 0.5 L (0.6-1.5) mg/dL Glucose 127 H (70-110) mg/dL Calcium 7.3 L (8.7-10.3) mg/dL Phosphorus 1.5 L (2.5-4.5) mg/dL Total Protein 5.6 L (6.2-8.2) g/dL Albumin 3.00 L (3.80-4.90) g/dL Albumin/Globulin Ratio 1.15 L (1.60-3.17) g/dL Procalcitonin (0.02-0.09) ng/mL Crossmatch Microbiology - Last 24 Hours (Table) 07/05/21 18:10 Urine Culture - Preliminary Urine,Voided 07/03/21 16:26 Blood Culture - Preliminary Blood No Growth after 48 hours 07/03/21 16:13 Blood Culture - Preliminary Blood No Growth after 48 hours Assessment and Plan (1) Neutropenic fever Current Visit: Yes Status: Acute Code(s): D70.9 - NEUTROPENIA, UNSPECIFIED; R50.81 - FEVER PRESENTING WITH CONDITIONS CLASSIFIED ELSEWHERE SNOMED Code(s): 648650998 (2) AML (acute myeloid leukemia) Current Visit: No Status: Acute Priority: High Code(s): C92.00 - ACUTE MYELOBLASTIC LEUKEMIA, NOT HAVING ACHIEVED REMISSION SNOMED Code(s): 29901895 (3) Anemia Current Visit: No Status: Acute Priority: High Code(s): D64.9 - ANEMIA, UNSPECIFIED SNOMED Code(s): 406224583 (4) Thrombocytopenia Current Visit: No Status: Acute Priority: High Code(s): D69.6 - THROMBOCYTOPENIA, UNSPECIFIED SNOMED Code(s): 394612253 Plan: Assessment and Recommendations: Febrile Neutropenia: - T Max 100.7 - Broad Spectrum ABX, AntiFungal, Anti VIRAL - ID to follow - Prophylaxic at discharge due to expected prolonged neutropenia - FULL GRESHAM CULTURES Syncopal Episode: - Secondary to anemia versus Sepsis, versus other - Neuro to evaluated - CT head without contrast no sign of bleed Nausea and Vomiting and ABdominal Cramping: - Abdominal Imaging and Stool studies negative - Treatment for UTI - Bentyl PRN AML: - Start on Rydapt 50mg po BID - Plan to see Dr. Forte after dicharge PLAN: - Coags today with increased petechae - Rashing likley from Vancomycin, benadryl prn and per Dr. Jeet ok to discontinue vancomycin, start augmentin to ensure tolerable and then can di scharge tomorrow if afebrile overnight. - Awaiting CMP that was ordered for today Cultures negative to date and clinically doing better, monitor Physician Attest: I have completed the full history and physical and agree with above dictation, dictated as a ascribe.
--- NOTE | 2021-07-06 17:59 | PN ---
PROGRESS NOTE DATE OF SERVICE: 07/06/2021 REASON FOR FOLLOWUP: Febrile neutropenia. INTERVAL HISTORY: The patient is afebrile. The patient is breathing comfortably. Patient denies having any chest pain. No shortness of breath or cough. No abdominal pain. No diarrhea. PHYSICAL EXAMINATION: Her blood pressure 139/65, pulse 105, temperature 97.5, he is 100% on room air. General description is a middle-aged female lying in bed in no distress. Respiratory system: Unlabored breathing. Clear to auscultation anteriorly. Heart S1, S2. Regular rate and rhythm. Abdomen: Soft, no tenderness. Extremities: Some petechial rash. LABS: Hemoglobin is 7.1, white count 0.2. Culture has been negative so far. DIAGNOSTIC IMPRESSION AND PLAN: Patient with febrile neutropenia with no clear focus of infection. Now developing a rash possibly related to vancomycin. We will discontinue vancomycin and cefepime, start the patient on oral Augmentin and if the patient remains to be afebrile, we will be able to finish therapy with oral Augmentin, acyclovir, Diflucan as per discussion with the Oncology. MMODL / IJN: [id number] /
[2021-07-06] MEDS: LORazepam 2 MG/ML INJ IV PRN (21:22)
[2021-07-06] MEDS: ACETAMINOPHEN TAB 325 MG TAB PO PRN (21:23)
[2021-07-06] MEDS: AMOXIC-POT CLAV 875-125MG 1 EACH TAB PO SCH (21:26)
[2021-07-06 21:37] LABS: HCT 22.3 % (34.0-46.0); HGB 7.7 gm/dL (11.4-16.0); MCH 31.1 pg (25.0-35.0); MCHC 34.5 g/dL (31.0-37.0); MCV 90.3 fL (80.0-100.0); Poikilocytosis Slight; RBC 2.47 m/uL (3.80-5.40)
[2021-07-06 21:41] LABS: Platelet Count 10 k/uL (150-450)
[2021-07-06 21:45] LABS: WBC 0.2 k/uL (3.8-10.6)
[2021-07-07] MEDS: SODIUM CHLORIDE 0.9% 1,000 ML IV SCH ×2 (00:07→05:16)
[2021-07-07] MEDS: ACETAMINOPHEN TAB 325 MG TAB PO PRN ×3 (03:29→18:04)
[2021-07-07] MEDS: ACYCLOVIR SODIUM 500 MG in SODIUM CHLORIDE 0.9% 100 ML IVPB SCH ×4 (05:15→22:11)
[2021-07-07 06:31] LABS: MCH 31.1 pg (25.0-35.0); MCHC 35.2 g/dL (31.0-37.0); MCV 88.5 fL (80.0-100.0); Mean Platelet Volume 8.3; RBC 2.13 m/uL (3.80-5.40); RDW 14.1 % (11.5-15.5)
[2021-07-07 06:34] LABS: WBC 0.1 k/uL (3.8-10.6)
[2021-07-07 06:36] LABS: HCT 18.8 % (34.0-46.0); HGB 6.6 gm/dL (11.4-16.0)
[2021-07-07 06:39] LABS: ALT 17 U/L (4-34); AST 17 U/L (14-36); African American GFR (CKD) >90 (>60 ml/min/1.73 sqM); Albumin 2.6 g/dL (3.5-5.0); Albumin/Globulin Ratio 0.9; Alkaline Phosphatase 59 U/L (38-126); Anion Gap 5 mmol/L; Blood Urea Nitrogen 7 mg/dL (7-17); Calcium 7.9 mg/dL (8.4-10.2); Carbon Dioxide 27 mmol/L (22-30); Chloride 107 mmol/L (98-107); Globulin 2.9 g/dL; Glucose 117 mg/dL (74-99); Magnesium 1.9 mg/dL (1.6-2.3); Non-African American GFR(CKD) >90 (>60 ml/min/1.73 sqM); Phosphorus 2.2 mg/dL (2.5-4.5); Sodium 139 mmol/L (137-145); Total Bilirubin 0.5 mg/dL (0.2-1.3); Total Protein 5.5 g/dL (6.3-8.2)
[2021-07-07] MEDS: FLUCONAZOLE IN NACL,ISO-OSM 100 MG in SALINE 1 50ML.BAG IVPB SCH (08:38)
[2021-07-07] MEDS: AMOXIC-POT CLAV 875-125MG 1 EACH TAB PO SCH (08:38)
[2021-07-07] MEDS: PARoxetine 10 MG TAB PO SCH (08:38)
[2021-07-07] MEDS: SALT AND SODA MOUTHWASH 1,000 ML PO SCH ×4 (08:41→22:13)
--- NOTE | 2021-07-07 08:41 | XR ---
EXAMINATION TYPE: XR chest 2V DATE OF EXAM: 07/07/2021 COMPARISON: 07/05/2020 INDICATION: Fever TECHNIQUE: Frontal and lateral views of the chest are obtained. FINDINGS: The heart size is normal. The pulmonary vasculature is normal. The lungs are clear. PICC line enters on the right with the tip in the superior vena cava region. IMPRESSION: 1. No acute pulmonary process.
[2021-07-07] MEDS: MIDOSTAURIN 25 MG PO SCH ×2 (09:07→21:09)
[2021-07-07] MEDS: PANTOPRAZOLE 40 MG TABLET PO SCH (09:13)
[2021-07-07] MEDS ORDERED: CEFEPIME 2 GM in SODIUM CHLORIDE 0.9% 100 ML IVPB SCH (12:00)
--- NOTE | 2021-07-07 12:42 | P.PN ---
Subjective Progress Note Date: 07/07/21 Principal diagnosis: febrile neutropenia patient's antibiotics were stopped yesterday, with exception of augmentin, however she spiked fever 101.7. She also had worsening petechaie and some hemoptysis which resulted in orders for transfusion of Platelets overnight. She did have episode of hemptysis. The prior "rash like" area on left inner arm and forehead now looks more eccymotic. POssible scratching, thin forehead skin. Regardless with clinical evidence of bleeding, will continue transfusion support with single donor irradiated platelets. One hour post platelet to assess for refractory status. Potassium decreased and supplemented today. Phos decreased, Mag stable. Subjectively she feels good. Denies nausea, vomiting, diarrhea, or constipation. She denies all neurological symptoms: no Headache, vision changes, dizzyness. Objective - Vital Signs Vital signs: Vital Signs Temp 99.0 F 07/07/21 11:29 Pulse 108 H 07/07/21 11:29 Resp 18 07/07/21 11:29 BP 84/51 07/07/21 11:29 Pulse Ox 98 07/07/21 05:00 Intake & Output 07/06/21 07/07/21 07/07/21 18:59 06:59 18:59 Intake Total 1288 0 Balance 1288 0 Intake: Intake, IV Titration 1000 Amount Acyclovir Sodium 500 mg 100 In Sodium Chloride 0.9% 100 ml @ 100 mls/hr IVPB Q8H [facility] Rx#:[id number] Sodium Chloride 0.9% 1, 900 000 ml @ 75 mls/hr IV . [id number] [facility] Rx#:[id number] Blood Product 288 0 Platelet Pheresis Pas 288 Psoralen Unit [id number] Rc Irr As1 Unit 0 [id number] Other: Voiding Method Toilet # Voids 2 # Bowel Movements 1 - Exam - Constitutional General appearance: Present: average body habitus, cooperative, no acute distress - EENT Eyes: Present: anicteric sclerae, EOMI ENT: Present: hearing grossly normal, normal oropharynx - Respiratory Respiratory: bilateral: CTA - Cardiovascular Rhythm: regular Heart sounds: normal: S1, S2 Abnormal Heart Sounds: Absent: systolic murmur, diastolic murmur, rub, S3 Gallop, S4 Gallop, click, other - Peripheral edema leg Peripheral Edema: bilateral: None - Gastrointestinal General gastrointestinal: Present: normal bowel sounds, soft - Integumentary Integumentary: Present: normal turgor, pale, areas of eccymosis on forehead and arms, lower extremity RLE petechaei is darker and pronouced today. Also petechaei rash has extended up to thighs - Neurologic Neurologic: Present: CNII-XII intact - Musculoskeletal Musculoskeletal: Present: strength equal bilaterally - Psychiatric Psychiatric: Present: A&O x's 3, appropriate affect, intact judgment & insigh - Labs CBC & Chem 7: 07/07/21 05:11 07/07/21 05:11 Labs: Abnormal Lab Results - Last 24 Hours (Table) 07/03/21 07/06/21 07/06/21 Range/Units 16:13 06:10 20:27 WBC 0.2 L* (3.8-10.6) k/uL RBC 2.47 L (3.80-5.40) m/uL Hgb 7.7 L (11.4-16.0) gm/dL Hct 22.3 L (34.0-46.0) % Plt Count 10 L* (150-450) k/uL Fibrinogen (200-500) mg/dL Potassium (3.5-5.1) mmol/L BUN 8.0 L (9.0-27.0) mg/dL Creatinine 0.5 L (0.6-1.5) mg/dL Glucose 127 H (70-110) mg/dL Calcium 7.3 L (8.7-10.3) mg/dL Phosphorus 1.5 L (2.4-5.1) mg/dL Total Protein 5.6 L (6.2-8.2) g/dL Albumin 3.00 L (3.80-4.90) g/dL Albumin/Globulin Ratio 1.15 L (1.60-3.17) g/dL Crossmatch See Detail 07/06/21 07/07/21 07/07/21 Range/Units 20:27 05:11 05:11 WBC 0.1 L* (3.8-10.6) k/uL RBC 2.13 L (3.80-5.40) m/uL Hgb 6.6 L* (11.4-16.0) gm/dL Hct 18.8 L* (34.0-46.0) % Plt Count 11 L* (150-450) k/uL Fibrinogen 587 H (200-500) mg/dL Potassium 3.0 L (3.5-5.1) mmol/L BUN (9.0-27.0) mg/dL Creatinine 0.44 L (0.6-1.5) mg/dL Glucose 117 H (70-110) mg/dL Calcium 7.9 L (8.7-10.3) mg/dL Phosphorus 2.2 L (2.4-5.1) mg/dL Total Protein 5.5 L (6.2-8.2) g/dL Albumin 2.6 L (3.80-4.90) g/dL Albumin/Globulin Ratio (1.60-3.17) g/dL Crossmatch 07/07/21 Range/Units 07:19 WBC (3.8-10.6) k/uL RBC (3.80-5.40) m/uL Hgb (11.4-16.0) gm/dL Hct (34.0-46.0) % Plt Count (150-450) k/uL Fibrinogen (200-500) mg/dL Potassium (3.5-5.1) mmol/L BUN (9.0-27.0) mg/dL Creatinine (0.6-1.5) mg/dL Glucose (70-110) mg/dL Calcium (8.7-10.3) mg/dL Phosphorus (2.4-5.1) mg/dL Total Protein (6.2-8.2) g/dL Albumin (3.80-4.90) g/dL Albumin/Globulin Ratio (1.60-3.17) g/dL Crossmatch See Detail Microbiology - Last 24 Hours (Table) 07/05/21 18:10 Urine Culture - Final Urine,Voided 07/03/21 16:26 Blood Culture - Preliminary Blood No Growth after 72 hours 07/03/21 16:13 Blood Culture - Preliminary Blood No Growth after 72 hours Assessment and Plan (1) Neutropenic fever Current Visit: Yes Status: Acute Code(s): D70.9 - NEUTROPENIA, UNSPECIFIED; R50.81 - FEVER PRESENTING WITH CONDITIONS CLASSIFIED ELSEWHERE SNOMED Code(s): 493825324 (2) AML (acute myeloid leukemia) Current Visit: No Status: Acute Priority: High Code(s): C92.00 - ACUTE MYELOBLASTIC LEUKEMIA, NOT HAVING ACHIEVED REMISSION SNOMED Code(s): 74576038 (3) Anemia Current Visit: No Status: Acute Priority: High Code(s): D64.9 - ANEMIA, UNSPECIFIED SNOMED Code(s): 382690863 (4) Thrombocytopenia Current Visit: No Status: Acute Priority: High Code(s): D69.6 - THROM BOCYTOPENIA, UNSPECIFIED SNOMED Code(s): 682236389 Plan: Assessment and Recommendations: Febrile Neutropenia: - T Max 102.7 - 07/07/21 - Broad Spectrum ABX, AntiFungal, Anti VIRAL - Discussed with Dr. Marcano and ashlee add vancomycin back - Premedicate prior with benadryl - ID Following and restarted cefepime - Prophylaxic at discharge due to expected prolonged neutropenia - FULL GRESHAM CULTURES rechecked today with increased fevers 07/07/21 Syncopal Episode: - Secondary to anemia versus Sepsis, versus other - Neuro cleared EEG and CT neg Nausea and Vomiting and ABdominal Cramping:Improved - Abdominal Imaging and Stool studies negative - Treatment for UTI - Bentyl PRN Hemoptysis: - Recheck DIC work-up, coags and fibrinogen show no evidence of DIC AML: - Start on Rydapt 50mg po BID x14 days. Started on 07/03/21 - Plan to see after discharge - Monitor TLS - Monitor infections - Aggressive and Proactive supportive care and electrolyte replacement PLAN: - Irradiated PLts and PRBC today, one hour post and with clinical signs of bleeding will keep platelets transfused to a response - Add Vancomycin back and premedicate - Supplement POtassium today - Recheck labs in am
--- NOTE | 2021-07-07 12:44 | P.PN ---
Subjective Progress Note Date: 07/07/21 Patient is complaining of worsening rash involving her forehead today. There is area of redness on the forehead that is itchy and slightly warm. This area of redness is elevated compared to the skin. Patient was having fevers last night. She remained on broad spectrum antibiotic. Objective - Vital Signs Vital signs: Vital Signs Temp 98.9 F 07/07/21 12:34 Pulse 100 07/07/21 12:34 Resp 18 07/07/21 12:34 BP 99/65 07/07/21 12:34 Pulse Ox 100 07/07/21 12:34 Intake & Output 07/06/21 07/07/21 07/07/21 18:59 06:59 18:59 Intake Total 1288 0 Balance 1288 0 Intake: Intake, IV Titration 1000 Amount Acyclovir Sodium 500 mg 100 In Sodium Chloride 0.9% 100 ml @ 100 mls/hr IVPB Q8H [facility] Rx#:[id number] Sodium Chloride 0.9% 1, 900 000 ml @ 75 mls/hr IV . [id number] [facility] Rx#:[id number] Blood Product 288 0 Platelet Pheresis Pas 288 Psoralen Unit [id number] Rc Irr As1 Unit 0 [id number] Other: Voiding Method Toilet # Voids 2 # Bowel Movements 1 - Exam General: The patient is awake and alert, in no distress Eye: there is normal conjunctiva bilaterally. Neck: The neck is supple, there is no JVD. Cardiovascular: Normal S1-S2, no S3-S4, no murmurs. Respiratory: Lungs clear to auscultation bilaterally Gastrointestinal: Abdomen is soft, nontender Musculoskeletal: There is no pedal edema. . There is diffuse petechiae involving both legs and arms Neurological:. Speech is normal. Skin: Skin is warm and dry - Labs CBC & Chem 7: 07/07/21 05:11 07/07/21 05:11 Labs: Abnormal Lab Results - Last 24 Hours (Table) 07/03/21 07/06/21 07/06/21 Range/Units 16:13 06:10 20:27 WBC 0.2 L* (3.8-10.6) k/uL RBC 2.47 L (3.80-5.40) m/uL Hgb 7.7 L (11.4-16.0) gm/dL Hct 22.3 L (34.0-46.0) % Plt Count 10 L* (150-450) k/uL Fibrinogen (200-500) mg/dL Potassium (3.5-5.1) mmol/L BUN 8.0 L (9.0-27.0) mg/dL Creatinine 0.5 L (0.6-1.5) mg/dL Glucose 127 H (70-110) mg/dL Calcium 7.3 L (8.7-10.3) mg/dL Phosphorus 1.5 L (2.4-5.1) mg/dL Total Protein 5.6 L (6.2-8.2) g/dL Albumin 3.00 L (3.80-4.90) g/dL Albumin/Globulin Ratio 1.15 L (1.60-3.17) g/dL Crossmatch See Detail 07/06/21 07/07/21 07/07/21 Range/Units 20:27 05:11 05:11 WBC 0.1 L* (3.8-10.6) k/uL RBC 2.13 L (3.80-5.40) m/uL Hgb 6.6 L* (11.4-16.0) gm/dL Hct 18.8 L* (34.0-46.0) % Plt Count 11 L* (150-450) k/uL Fibrinogen 587 H (200-500) mg/dL Potassium 3.0 L (3.5-5.1) mmol/L BUN (9.0-27.0) mg/dL Creatinine 0.44 L (0.6-1.5) mg/dL Glucose 117 H (70-110) mg/dL Calcium 7.9 L (8.7-10.3) mg/dL Phosphorus 2.2 L (2.4-5.1) mg/dL Total Protein 5.5 L (6.2-8.2) g/dL Albumin 2.6 L (3.80-4.90) g/dL Albumin/Globulin Ratio (1.60-3.17) g/dL Crossmatch 07/07/21 Range/Units 07:19 WBC (3.8-10.6) k/uL RBC (3.80-5.40) m/uL Hgb (11.4-16.0) gm/dL Hct (34.0-46.0) % Plt Count (150-450) k/uL Fibrinogen (200-500) mg/dL Potassium (3.5-5.1) mmol/L BUN (9.0-27.0) mg/dL Creatinine (0.6-1.5) mg/dL Glucose (70-110) mg/dL Calcium (8.7-10.3) mg/dL Phosphorus (2.4-5.1) mg/dL Total Protein (6.2-8.2) g/dL Albumin (3.80-4.90) g/dL Albumin/Globulin Ratio (1.60-3.17) g/dL Crossmatch See Detail Microbiology - Last 24 Hours (Table) 07/05/21 18:10 Urine Culture - Final Urine,Voided 07/03/21 16:26 Blood Culture - Preliminary Blood No Growth after 72 hours 07/03/21 16:13 Blood Culture - Preliminary Blood No Growth after 72 hours Assessment and Plan Assessment: This is a very pleasant 61-year-old female who was recently diagnosed with AML and status post a week hospitalization for chemo that returned the hospital 2 days after discharge secondary to having fevers at her [employer] office. She was admitted directly under hematology and was consulted for medical manage ment. Below is a list of her medical problems: 1. Neutropenic fever: Patient started on IV vancomycin, IV cefepime, IV as a severe, and IV fluconazole. Infectious disease consulted for further hardik luation. No clear source of infection. Chest x-ray and urinalysis unremarkable. Blood culture negative to date. 2. Sepsis without septic shock: Improved with IV fluid hydration and possibly some antibiotic. Lactic acid is normal 3. AML related and chemo-induced pancytopenia: Hematology following closely 4. Recently diagnosed AML status post induction chemotherapy 5. Episodes of tremors concerning for seizure: Less likely based on clinical presentation. Computed tomography scan of the head showed no acute findings. Neurology consulted and EEG ordered Today, I reviewed her medication list and lab work results. I will continue to follow up on the patient closely with you.
[2021-07-07 14:03] LABS: Partial Thromboplastin Time 25.3 sec (22.0-30.0)
[2021-07-07] MEDS ORDERED: VANCOMYCIN TROUGH DUE 1 EACH MISC MISCELLANE ONE (15:00)
[2021-07-07 16:26] LABS: Appearance,Urine Clear (Clear); Bilirubin,Urine Negative (Negative); Blood,Urine Negative (Negative); Color,Urine Light Yellow; Glucose,Urine (UA) Negative (Negative); Ketones,Urine Negative (Negative); Leukocyte Esterase,Urine Negative (Negative); Nitrite,Urine Negative (Negative); Protein,Urine Negative (Negative); Urobilinogen,Urine <2.0 mg/dL (<2.0)
[2021-07-07] MEDS: POTASSIUM CHLORIDE ER 20 MEQ TAB.ER PO SCH ×2 (16:39→19:35)
[2021-07-07] MEDS: CEFEPIME 2 GM in SODIUM CHLORIDE 0.9% 100 ML IVPB SCH (17:38)
--- NOTE | 2021-07-07 18:36 | PN ---
PROGRESS NOTE DATE OF SERVICE: 07/07/2021 REASON FOR FOLLOWUP: Febrile neutropenia. INTERVAL HISTORY: The patient did have a fever again last night and this morning of 102 degrees Fahrenheit. The patient did have some chills. Denies having any headache or chest pain or shortness of breath or cough. No abdominal pain. No diarrhea. The patient had developed a rash to the forehead area with some itching but no significant burning pain. PHYSICAL EXAMINATION: Blood pressure 97/50 with a pulse of 103, temperature 100.5. She is 98% on room air. GENERAL DESCRIPTION: General description is an elderly female up in the room in no distress. RESPIRATORY SYSTEM: Unlabored breathing. Clear to auscultation. HEART: S1, S2. Regular rate and rhythm. ABDOMEN: Soft. No tenderness. EXAMINATION OF SKIN: The patient did have an erythematous rash to the forehead which is kind of in the midline suggestive of zoster, possible cellulitis. LABS: Hemoglobin 6.6, white cell count BUN of 7, creatinine 0.44. DIAGNOSTIC IMPRESSION AND PLAN: Patient with febrile neutropenia with initial improvement, but now with recurrence of a fever after she was treated with oral antibiotics. Blood culture has been repeated. Chest x-ray is negative. Will start cefepime. Monitor the redness on the forehead and close outpatient followup. MMODL / IJN: [id number] /
[2021-07-07] MEDS ORDERED: VANCOMYCIN IV PER PHARMACY 1 EACH MISC MISCELLANE PRN (18:52)
[2021-07-07] MEDS ORDERED: diphenhydrAMINE 50 MG/ML 1 ML VIAL IM PRN (18:53)
[2021-07-07] MEDS ORDERED: VANCOMYCIN 1,500 MG in SODIUM CHLORIDE 0.9% 250 ML IVPB SCH (19:00)
[2021-07-07] MEDS: diphenhydrAMINE 50 MG/ML 1 ML VIAL IVP SCH (19:37)
[2021-07-07 20:58] LABS: MCHC 35.4 g/dL (31.0-37.0); MCV 87.8 fL (80.0-100.0); Mean Platelet Volume 10.9; RBC 2.27 m/uL (3.80-5.40); RDW 14.2 % (11.5-15.5)
[2021-07-07 21:37] LABS: WBC 0.2 k/uL (3.8-10.6)
[2021-07-07 21:38] LABS: HCT 19.9 % (34.0-46.0); Platelet Count 32 k/uL (150-450)
[2021-07-08] MEDS: CEFEPIME 2 GM in SODIUM CHLORIDE 0.9% 100 ML IVPB SCH ×3 (01:10→17:55)
[2021-07-08] MEDS: ACETAMINOPHEN TAB 325 MG TAB PO PRN ×2 (01:53→11:54)
[2021-07-08 02:42] LABS: Prothrombin Time 11.3 sec (9.0-12.0)
[2021-07-08 02:43] LABS: INR 1.1 (<1.2)
[2021-07-08] MEDS: LORazepam 2 MG/ML INJ IV PRN (02:50)
[2021-07-08 04:43] LABS: Platelet Count 11 k/uL (150-450)
[2021-07-08] MEDS: diphenhydrAMINE 50 MG/ML 1 ML VIAL IVP SCH ×3 (05:51→21:52)
[2021-07-08] MEDS: ACYCLOVIR SODIUM 500 MG in SODIUM CHLORIDE 0.9% 100 ML IVPB SCH ×3 (06:04→21:52)
[2021-07-08] MEDS: VANCOMYCIN 1,500 MG in SODIUM CHLORIDE 0.9% 250 ML IVPB SCH ×3 (06:05→23:01)
[2021-07-08 06:16] LABS: MCH 31.9 pg (25.0-35.0); MCHC 36.1 g/dL (31.0-37.0); MCV 88.3 fL (80.0-100.0); Mean Platelet Volume 9.1; RBC 2.11 m/uL (3.80-5.40); RDW 14.8 % (11.5-15.5)
[2021-07-08 06:22] LABS: HCT 18.7 % (34.0-46.0); Platelet Count 31 k/uL (150-450); WBC 0.2 k/uL (3.8-10.6)
[2021-07-08 06:24] LABS: HGB 6.7 gm/dL (11.4-16.0)
[2021-07-08 06:42] LABS: INR 1.1 (<1.2); Partial Thromboplastin Time 25.6 sec (22.0-30.0); Prothrombin Time 11.7 sec (9.0-12.0)
[2021-07-08] MEDS: PANTOPRAZOLE 40 MG TABLET PO SCH (11:18)
[2021-07-08] MEDS: PARoxetine 10 MG TAB PO SCH (11:19)
[2021-07-08 11:20] LABS: African American GFR (CKD) 121.9 (60.0-200.0); Albumin 2.8 g/dL (3.80-4.90); Albumin/Globulin Ratio 1.17 (1.60-3.17); C Reactive Protein 15.2 mg/dL (0.0-0.8); Calcium 7.7 mg/dL (8.7-10.3); Globulin 2.4 g/dL (1.6-3.3); Magnesium 1.6 mg/dL (1.5-2.4); Non-African American GFR(CKD) 105.2 (60.0-200.0); Phosphorus 1.7 mg/dL (2.4-5.1); Potassium 3.5 mmol/L (3.5-5.5); Total Bilirubin 0.7 mg/dL (0.3-1.2); Total Protein 5.2 g/dL (6.2-8.2)
[2021-07-08] MEDS: MIDOSTAURIN 25 MG PO SCH ×2 (11:25→21:08)
[2021-07-08] MEDS: SALT AND SODA MOUTHWASH 1,000 ML PO SCH ×4 (11:26→22:01)
--- NOTE | 2021-07-08 12:26 | P.PN ---
<Marina Ann - Last Filed: 07/08/21 15:01> Subjective Progress Note Date: 07/08/21 Principal diagnosis: febrile neutropenia Patient's Vitals and Labs are worsening today. Febrile T-Max 103. Hold on transfusion until temp is improved. Will check with pharmacy if we carry IV tylenol. Spoke to nursing. She is oxygenating well. Her Blood pressure decreased, heart rate increased. Fluids increased per primary team, Close monitoring in picture of sepsis. Will add telemetry. Objective - Vital Signs Vital signs: Vital Signs Temp 103.2 F H 07/08/21 12:15 Pulse 118 H 07/08/21 12:15 Resp 20 07/08/21 12:15 BP 93/63 07/08/21 12:15 Pulse Ox 99 07/08/21 12:15 Intake & Output 07/07/21 07/08/21 07/08/21 18:59 06:59 18:59 Intake Total 3556 400 Balance 3556 400 Intake: Intake, IV Titration 700 Amount Acyclovir Sodium 500 mg 100 In Sodium Chloride 0.9% 100 ml @ 100 mls/hr IVPB Q8H [facility] Rx#:[id number] Cefepime 2 gm In Sodium 100 Chloride 0.9% 100 ml @ 25 mls/hr IVPB Q8H [facility] Rx#: [id number] Fluconazole in NaCl,Iso- 100 Osm 100 mg In Saline 1 50ml.bag @ 50 mls/hr IVPB DAILY [facility] Rx#:[id number] Sodium Chloride 0.9% 1, 400 000 ml @ 75 mls/hr IV . [id number] [facility] Rx#:[id number] Oral 1580 400 Blood Product 1276 Platelet Pheresis Pas 328 Psoralen Unit [id number] Rc Irr As1 Unit 310 [id number] Other: Voiding Method Toilet # Voids 4 2 # Bowel Movements 1 - Exam - Constitutional General appearance: Present: average body habitus, cooperative, no acute distress - EENT Eyes: Present: anicteric sclerae, EOMI ENT: Present: hearing grossly normal, normal oropharynx - Respiratory Respiratory: bilateral: CTA - Cardiovascular Rhythm: regular Heart sounds: normal: S1, S2 Abnormal Heart Sounds: Absent: systolic murmur, diastolic murmur, rub, S3 Gallop, S4 Gallop, click, other - Peripheral edema leg Peripheral Edema: bilateral: None - Gastrointestinal General gastrointestinal: Present: normal bowel sounds, soft - Integumentary Integumentary: Present: normal turgor, pale, areas of eccymosis on forehead and arms, lower extremity RLE petechaei is darker and pronouced today. Also petechaei rash has extended up to thighs - Neurologic Neurologic: Present: CNII-XII intact - Musculoskeletal Musculoskeletal: Present: strength equal bilaterally - Psychiatric Psychiatric: Present: A&O x's 3, appropriate affect, intact judgment & insigh - Labs CBC & Chem 7: 07/08/21 05:30 07/08/21 05:30 Labs: Abnormal Lab Results - Last 24 Hours (Table) 07/03/21 07/07/21 07/07/21 Range/Units 16:13 05:11 07:19 WBC (3.8-10.6) k/uL RBC (3.80-5.40) m/uL Hgb (11.4-16.0) gm/dL Hct (34.0-46.0) % Plt Count 11 L* (150-450) k/uL Fibrinogen (200-500) mg/dL D-Dimer (<0.60) mg/L FEU BUN (9.0-27.0) mg/dL Creatinine (0.6-1.5) mg/dL Glucose (70-110) mg/dL Calcium (8.7-10.3) mg/dL Phosphorus (2.4-5.1) mg/dL C-Reactive Protein (0.0-0.8) mg/dL Total Protein (6.2-8.2) g/dL Albumin (3.80-4.90) g/dL Albumin/Globulin Ratio (1.60-3.17) g/dL Crossmatch See Detail See Detail 07/07/21 07/07/21 07/08/21 Range/Units 13:10 20:36 05:30 WBC 0.2 L* 0.2 L* (3.8-10.6) k/uL RBC 2.27 L 2.11 L (3.80-5.40) m/uL Hgb 7.0 L 6.7 L* (11.4-16.0) gm/dL Hct 19.9 L* 18.7 L* (34.0-46.0) % Plt Count 32 L D 31 L (150-450) k/uL Fibrinogen 591 H (200-500) mg/dL D-Dimer (<0.60) mg/L FEU BUN (9.0-27.0) mg/dL Creatinine (0.6-1.5) mg/dL Glucose (70-110) mg/dL Calcium (8.7-10.3) mg/dL Phosphorus (2.4-5.1) mg/dL C-Reactive Protein (0.0-0.8) mg/dL Total Protein (6.2-8.2) g/dL Albumin (3.80-4.90) g/dL Albumin/Globulin Ratio (1.60-3.17) g/dL Crossmatch 07/08/21 07/08/21 Range/Units 05:30 05:30 WBC (3.8-10.6) k/uL RBC (3.80-5.40) m/uL Hgb (11.4-16.0) gm/dL Hct (34.0-46.0) % Plt Count (150-450) k/uL Fibrinogen 582 H (200-500) mg/dL D-Dimer 1.60 H (<0.60) mg/L FEU BUN 8.0 L (9.0-27.0) mg/dL Creatinine 0.5 L (0.6-1.5) mg/dL Glucose 120 H (70-110) mg/dL Calcium 7.7 L (8.7-10.3) mg/dL Phosphorus 1.7 L (2.4-5.1) mg/dL C-Reactive Protein 15.2 H (0.0-0.8) mg/dL Total Protein 5.2 L (6.2-8.2) g/dL Albumin 2.80 L (3.80-4.90) g/dL Albumin/Globulin Ratio 1.17 L (1.60-3.17) g/dL Crossmatch Microbiology - Last 24 Hours (Table) 07/07/21 09:01 Blood Culture - Preliminary Blood No Growth after 24 hours 07/07/21 09:01 Blood Culture - Preliminary Blood No Growth after 24 hours 07/03/21 16:26 Blood Culture - Preliminary Blood No Growth after 96 hours 07/03/21 16:13 Blood Culture - Preliminary Blood No Growth after 96 hours Assessment and Plan (1) Neutropenic fever Current Visit: Yes Status: Acute Code(s): D70.9 - NEUTROPENIA, UNSPECIFIED; R50.81 - FEVER PRESENTING WITH CONDITIONS CLASSIFIED ELSEWHERE SNOMED Code(s): 802022352 (2) AML (acute myeloid leukemia) Current Visit: No Status: Acute Priority: High Code(s): C92.00 - ACUTE MYELOBLASTIC LEUKEMIA, NOT HAVING ACHIEVED REMISSION SNOMED Code(s): 58866426 (3) Anemia Current Visit: No Status: Acute Priority: High Code(s): D64.9 - ANEMIA, UNSPECIFIED SNOMED Code(s): 603716195 (4) Thrombocytopenia Current Visit: No Status: Acute Priority: High Code(s): D69.6 - THROMBOCYTOPENIA, UNSPECIFIED SNOMED Code(s): 415562513 Plan: Assessment and Recommendations: Febrile Neutropenia: - T Max 102.7 - 07/07/21 - Broad Spectrum ABX, AntiFungal, Anti VIRAL - Discussed with Dr. Marcano and ashlee add vancomycin back - Premedicate prior with benadryl - ID Following and restarted cefepime - Prophylaxic at discharge due to expected prolonged neutropenia - FULL GRESHAM CULTURES rechecked today with increased fevers 07/07/21 Syncopal Episode: - Secondary to anemia versus Sepsis, versus other - Neuro cleared EEG and CT neg Nausea and Vomiting and ABdominal Cramping:Improved - Abdominal Imaging and Stool studies negative - Treatment for UTI - Bentyl PRN Hemoptysis: - Recheck DIC work-up, coags and fibrinogen show no evidence of DIC AML: - Start on Rydapt 50mg po BID x14 days. Started on 07/03/21 - Plan to see after discharge - Monitor TLS - Monitor infections - Aggressive and Proactive supportive care and electrolyte replacement PLAN: - COntinue aggressive supportive care. Overall she clinically looks ok <Vianney Melo - Last Filed: 07/08/21 15:58> Objective - Vital Signs Vital signs: Vital Signs Temp 99.3 F 07/08/21 14:01 Pulse 118 H 07/08/21 12:15 Resp 20 07/08/21 12:15 BP 93/63 07/08/21 12:15 Pulse Ox 99 07/08/21 12:15 Intake & Output 07/07/21 07/08/21 07/08/21 18:59 06:59 18:59 Intake Total 3556 400 Balance 3556 400 Intake: Intake, IV Titration 700 Amount Acyclovir Sodium 500 mg 100 In Sodium Chloride 0.9% 100 ml @ 100 mls/hr IVPB Q8H [facility] Rx#:[id number] Cefepime 2 gm In Sodium 100 Chloride 0.9% 100 ml @ 25 mls/hr IVPB Q8H [facility] Rx#: [id number] Fluconazole in NaCl,Iso- 100 Osm 100 mg In Saline 1 50ml.bag @ 50 mls/hr IVPB DAILY [facility] Rx#:[id number] Sodium Chloride 0.9% 1, 400 000 ml @ 75 mls/hr IV . [id number] [facility] Rx#:[id number] Oral 1580 400 Blood Product 1276 Platelet Pheresis Pas 328 Psoralen Unit [id number] Rc Irr As1 Unit 310 [id number] Other: Voiding Method Toilet Toilet # Voids 4 2 # Bowel Movements 1 - Exam Gen.: no acute distress HEENT: Conjunctival pallor, mucosa moist. Neck: Supple Lungs: No respiratory distress Heart: Regular rate Abdomen: Soft Skin: No jaundice. What appears to be improving petechia in bilateral LE as well as healing ecchymosis on forehead and arms. Neuro: Alert and oriented 3 Psych: Appropriate affect. - Labs CBC & Chem 7: 07/08/21 05:30 07/08/21 05:30 Labs: Abnormal Lab Results - Last 24 Hours (Table) 07/03/21 07/07/21 07/07/21 Range/Units 16:13 05:11 07:19 WBC (3.8-10.6) k/uL RBC (3.80-5.40) m/uL Hgb (11.4-16.0) gm/dL Hct (34.0-46.0) % Plt Count 11 L* (150-450) k/uL Fibrinogen (200-500) mg/dL D-Dimer (<0.60) mg/L FEU BUN (9.0-27.0) mg/dL Creatinine (0.6-1.5) mg/dL Glucose (70-110) mg/dL Calcium (8.7-10.3) mg/dL Phosphorus (2.4-5.1) mg/dL C-Reactive Protein (0.0-0.8) mg/dL Total Protein (6.2-8.2) g/dL Albumin (3.80-4.90) g/dL Albumin/Globulin Ratio (1.60-3.17) g/dL Crossmatch See Detail See Detail 07/07/21 07/08/21 07/08/21 Range/Units 20:36 05:30 05:30 WBC 0.2 L* 0.2 L* (3.8-10.6) k/uL RBC 2.27 L 2.11 L (3.80-5.40) m/uL Hgb 7.0 L 6.7 L* (11.4-16.0) gm/dL Hct 19.9 L* 18.7 L* (34.0-46.0) % Plt Count 32 L D 31 L (150-450) k/uL Fibrinogen (200-500) mg/dL D-Dimer (<0.60) mg/L FEU BUN 8.0 L (9.0-27.0) mg/dL Creatinine 0.5 L (0.6-1.5) mg/dL Glucose 120 H (70-110) mg/dL Calcium 7.7 L (8.7-10.3) mg/dL Phosphorus 1.7 L (2.4-5.1) mg/dL C-Reactive Protein 15.2 H (0.0-0.8) mg/dL Total Protein 5.2 L (6.2-8.2) g/dL Albumin 2.80 L (3.80-4.90) g/dL Albumin/Globulin Ratio 1.17 L (1.60-3.17) g/dL Crossmatch 07/08/21 Range/Units 05:30 WBC (3.8-10.6) k/uL RBC (3.80-5.40) m/uL Hgb (11.4-16.0) gm/dL Hct (34.0-46.0) % Plt Count (150-450) k/uL Fibrinogen 582 H (200-500) mg/dL D-Dimer 1.60 H (<0.60) mg/L FEU BUN (9.0-27.0) mg/dL Creatinine (0.6-1.5) mg/dL Glucose (70-110) mg/dL Calcium (8.7-10.3) mg/dL Phosphorus (2.4-5.1) mg/dL C-Reactive Protein (0.0-0.8) mg/dL Total Protein (6.2-8.2) g/dL Albumin (3.80-4.90) g/dL Albumin/Globulin Ratio (1.60-3.17) g/dL Crossmatch Microbiology - Last 24 Hours (Table) 07/07/21 09:01 Blood Culture - Preliminary Blood No Growth after 24 hours 07/07/21 09:01 Blood Culture - Preliminary Blood No Growth after 24 hours 07/03/21 16:26 Blood Culture - Preliminary Blood No Growth after 96 hours 07/03/21 16:13 Blood Culture - Preliminary Blood No Growth after 96 hours Assessment and Plan Assessment: AML Pancytopenia due to chemotherapy and leukemia ecchymosis and petechia febrile neutropenia persistent fevers, possible drug fevers Plan: Ms. Perrin is a very pleasant 61 yo female with recently found AML status post induction chemotherapy with 7+3, currently on Rydapt, who is here for febrile neutropenia. She has pancytopenia as expected due to chemotherapy, transfusion dependent. She does need blood transfusion today, irradiated. She also has been having persistent fevers, up to 102 and 103. She has been on broad- spectrum antibiotics as well as antifungal and antiviral medication. Infectious disease on board. Agree with adding Vanco with premedications. Infectious work up so far unremarkable. She was having hemoptysis which seems to have cleared. Likely due to severe thrombocytopenia. DIC workup unremarkable. Also with nausea, vomiting, and abdominal cramping which has improved. We'll plan on continued supportive care and broad-spectrum antibiotics. Continue supportive transfusion, irradiated blood products, for hemoglobin less than 7 and platelets less than 15 or bleeding. I did reassure patient that what she is experiencing is very common. Clinically she does not appear to be acutely ill or septic. Her fevers could also be related to drug fever, as Rydapt is known to cause fevers and about 25-27% of patients. Continue this however for now to complete her 14 days, day 1 was on 07/03/21. Continue suppression of fevers with Tylenol. Avoid NSAIDs due to severe throm bocytopenia. Discussed with patient and family at bedside in detail and they're agreeable to the plan. All of their questions were answered.
--- NOTE | 2021-07-08 12:29 | P.PN ---
Subjective Progress Note Date: 07/08/21 Patient was seen and evaluated by me today. Temperature was 103.2. Patient denies any complaints. Blood cultures been negative since admission. She was about to receive Tylenol at the time of my evaluation. Her blood pressure was 98/54. Objective - Vital Signs Vital signs: Vital Signs Temp 103.2 F H 07/08/21 12:15 Pulse 118 H 07/08/21 12:15 Resp 20 07/08/21 12:15 BP 93/63 07/08/21 12:15 Pulse Ox 99 07/08/21 12:15 Intake & Output 07/07/21 07/08/21 07/08/21 18:59 06:59 18:59 Intake Total 3556 400 Balance 3556 400 Intake: Intake, IV Titration 700 Amount Acyclovir Sodium 500 mg 100 In Sodium Chloride 0.9% 100 ml @ 100 mls/hr IVPB Q8H [facility] Rx#:[id number] Cefepime 2 gm In Sodium 100 Chloride 0.9% 100 ml @ 25 mls/hr IVPB Q8H [facility] Rx#: [id number] Fluconazole in NaCl,Iso- 100 Osm 100 mg In Saline 1 50ml.bag @ 50 mls/hr IVPB DAILY [facility] Rx#:[id number] Sodium Chloride 0.9% 1, 400 000 ml @ 75 mls/hr IV . [id number] [facility] Rx#:[id number] Oral 1580 400 Blood Product 1276 Platelet Pheresis Pas 328 Psoralen Unit [id number] Rc Irr As1 Unit 310 [id number] Other: Voiding Method Toilet # Voids 4 2 # Bowel Movements 1 - Exam General: The patient is awake and alert, in no distress Eye: there is normal conjunctiva bilaterally. Neck: The neck is supple, there is no JVD. Cardiovascular: Normal S1-S2, no S3-S4, no murmurs. Respiratory: Lungs clear to auscultation bilaterally Gastrointestinal: Abdomen is soft, nontender Musculoskeletal: There is no pedal edema. . There is diffuse petechiae involving both legs and arms Neurological:. Speech is normal. Skin: Skin is warm and dry - Labs CBC & Chem 7: 07/08/21 05:30 07/08/21 05:30 Labs: Abnormal Lab Results - Last 24 Hours (Table) 07/03/21 07/07/2107/07/21 Range/Units 16:13 05:11 07:19 WBC (3.8-10.6) k/uL RBC (3.80-5.40) m/uL Hgb (11.4-16.0) gm/dL Hct (34.0-46.0) % Plt Count 11 L* (150-450) k/uL Fibrinogen (200-500) mg/dL D-Dimer (<0.60) mg/L FEU BUN (9.0-27.0) mg/dL Creatinine (0.6-1.5) mg/dL Glucose (70-110) mg/dL Calcium (8.7-10.3) mg/dL Phosphorus (2.4-5.1) mg/dL C-Reactive Protein (0.0-0.8) mg/dL Total Protein (6.2-8.2) g/dL Albumin (3.80-4.90) g/dL Albumin/Globulin Ratio (1.60-3.17) g/dL Crossmatch See Detail See Detail 07/07/21 07/07/21 07/08/21 Range/Units 13:10 20:36 05:30 WBC 0.2 L* 0.2 L* (3.8-10.6) k/uL RBC 2.27 L 2.11 L (3.80-5.40) m/uL Hgb 7.0 L 6.7 L* (11.4-16.0) gm/dL Hct 19.9 L* 18.7 L* (34.0-46.0) % Plt Count 32 L D 31 L (150-450) k/uL Fibrinogen 591 H (200-500) mg/dL D-Dimer (<0.60) mg/L FEU BUN (9.0-27.0) mg/dL Creatinine (0.6-1.5) mg/dL Glucose (70-110) mg/dL Calcium (8.7-10.3) mg/dL Phosphorus (2.4-5.1) mg/dL C-Reactive Protein (0.0-0.8) mg/dL Total Protein (6.2-8.2) g/dL Albumin (3.80-4.90) g/dL Albumin/Globulin Ratio (1.60-3.17) g/dL Crossmatch 07/08/21 07/08/21 Range/Units 05:30 05:30 WBC (3.8-10.6) k/uL RBC (3.80-5.40) m/uL Hgb (11.4-16.0) gm/dL Hct (34.0-46.0) % Plt Count (150-450) k/uL Fibrinogen 582 H (200-500) mg/dL D-Dimer 1.60 H (<0.60) mg/L FEU BUN 8.0 L (9.0-27.0) mg/dL Creatinine 0.5 L (0.6-1.5) mg/dL Glucose 120 H (70-110) mg/dL Calcium 7.7 L (8.7-10.3) mg/dL Phosphorus 1.7 L (2.4-5.1) mg/dL C-Reactive Protein 15.2 H (0.0-0.8) mg/dL Total Protein 5.2 L (6.2-8.2) g/dL Albumin 2.80 L (3.80-4.90) g/dL Albumin/Globulin Ratio 1.17 L (1.60-3.17) g/dL Crossmatch Microbiology - Last 24 Hours (Table) 07/07/21 09:01 Blood Culture - Preliminary Blood No Growth after 24 hours 07/07/21 09:01 Blood Culture - Preliminary Blood No Growth after 24 hours 07/03/21 16:26 Blood Culture - Preliminary Blood No Growth after 96 hours 07/03/21 16:13 Blood Culture - Preliminary Blood No Growth after 96 hours Assessment and Plan Assessment: This is a very pleasant 61-year-old female who was recently diagnosed with AML and status post a week hospitalization for chemo that returned the hospital 2 days 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 She was admitted directly under hematology and was consulted for medical management. Below is a list of her medical problems: 1. Neutropenic fever: Patient started on IV vancomycin, IV cefepime, IV as a severe, and IV fluconazole. Infectious disease consulted for further evaluation. No clear source of infection. Chest x-ray and urinalysis unremarkable. Blood culture negative to date. 2. Sepsis without septic shock: Improved with IV fluid hydration and possibly some antibiotic. Lactic acid is normal 3. AML related and chemo-induced pancytopenia: Hematology following closely 4. Recently diagnosed AML status post induction chemotherapy 5. Episodes of tremors concerning for seizure: Less likely based on clinical presentation. Computed tomography scan of the head showed no acute findings. Neurology consulted and EEG showed no abnormal findings. No antiseizure medications recommended at this time. Today, I reviewed her medication list and lab work results. Resume IV fluid with normal saline at 75 mL per hour. Blood culture from yesterday were negative. Check lactic acid. Continue broad spectrum antibiotic. Awaiting hematology evaluation today to comment as chemotherapy may be causing her fevers.
[2021-07-08] MEDS ORDERED: SODIUM CHLORIDE 0.9% 750 ML IV SCH (12:30)
[2021-07-08] MEDS: POTAS-SOD-PHOS 278-164-250 MG 1 EACH PACKET PO SCH ×2 (12:43→22:01)
[2021-07-08] MEDS: FLUCONAZOLE IN NACL,ISO-OSM 100 MG in SALINE 1 50ML.BAG IVPB SCH (12:43)
[2021-07-08] MEDS ORDERED: ACETAMINOPHEN TAB 325 MG TAB PO STA (16:50)
--- NOTE | 2021-07-08 16:52 | US ---
EXAMINATION TYPE: US venous doppler duplex UE RT DATE OF EXAM: 07/08/2021 COMPARISON: NONE CLINICAL HISTORY: right upper extremity Dvt. SIDE PERFORMED: Right Right Arm: Negative for DVT Positive for SVT. There is no flow seen in the right basilic vein from insertion site of PICC line in to upper arm. There is flow seen around PICC line in subclavian vein. IMPRESSION: There is some superficial vein thrombosis in the basilic vein. No evidence of deep vein thrombosis.
[2021-07-08] MEDS: SODIUM CHLORIDE 0.9% 1,000 ML IV SCH (17:49)
--- NOTE | 2021-07-08 19:51 | PN ---
PROGRESS NOTE DATE OF SERVICE: 07/08/2021 REASON FOR FOLLOWUP: Febrile neutropenia. INTERVAL HISTORY: The patient did spike a fever this afternoon of 103 degrees Fahrenheit. The patient denies having any headache. No chest pain or shortness of breath. Occasional cough. No abdominal pain or any diarrhea. The forehead swelling and redness have slightly decreased. PHYSICAL EXAMINATION: On examination, blood pressure 93/63 with a pulse of 118, temperature of 99.3, T-max of 103. She is 99% on room air. GENERAL DESCRIPTION: General description is middle-aged female lying in bed in no distress. HEENT EXAMINATION: The forehead swelling and redness are improved. LUNGS: Unlabored breathing. Clear to auscultation anteriorly. HEART: S1, S2. Regular rate and rhythm. ABDOMEN: Soft. No tenderness. LABS: Hemoglobin 6.7, white count 0.2. DIAGNOSTIC IMPRESSION AND PLAN: Patient with febrile neutropenia. Patient currently with no clear focus of infection. Culture has been negative so far. With the recurrent fever, will obtain ultrasound of the right upper extremity to make sure no evidence of any DVT and we will also get blood cultures from the PICC line. Continue vancomycin and cefepime and monitor her clinical course closely. MMODL / IJN: [id number] /
[2021-07-09] MEDS: CEFEPIME 2 GM in SODIUM CHLORIDE 0.9% 100 ML IVPB SCH ×3 (01:00→19:42)
[2021-07-09] MEDS: LORazepam 2 MG/ML INJ IV PRN ×2 (01:05→15:59)
[2021-07-09] MEDS: diphenhydrAMINE 50 MG/ML 1 ML VIAL IVP SCH ×3 (05:05→21:49)
[2021-07-09] MEDS: ACYCLOVIR SODIUM 500 MG in SODIUM CHLORIDE 0.9% 100 ML IVPB SCH ×3 (05:06→23:58)
[2021-07-09] MEDS: VANCOMYCIN 1,500 MG in SODIUM CHLORIDE 0.9% 250 ML IVPB SCH ×3 (05:37→21:49)
[2021-07-09 09:07] LABS: MCH 30.3 pg (25.0-35.0); MCHC 34.6 g/dL (31.0-37.0); MCV 87.6 fL (80.0-100.0); Mean Platelet Volume 9.2; RBC 2.17 m/uL (3.80-5.40); RDW 14.6 % (11.5-15.5)
[2021-07-09] MEDS: PANTOPRAZOLE 40 MG TABLET PO SCH (09:07)
[2021-07-09] MEDS: POTAS-SOD-PHOS 278-164-250 MG 1 EACH PACKET PO SCH ×3 (09:07→22:25)
[2021-07-09] MEDS: PARoxetine 10 MG TAB PO SCH (09:07)
[2021-07-09] MEDS: SALT AND SODA MOUTHWASH 1,000 ML PO SCH ×4 (09:08→22:26)
[2021-07-09] MEDS: MIDOSTAURIN 25 MG PO SCH ×2 (09:08→21:52)
[2021-07-09 09:09] LABS: Platelet Count 12 k/uL (150-450)
[2021-07-09 09:10] LABS: HGB 6.6 gm/dL (11.4-16.0); WBC 0.3 k/uL (3.8-10.6)
[2021-07-09 09:17] LABS: ALT 14 U/L (4-34); AST 24 U/L (14-36); African American GFR (CKD) >90 (>60 ml/min/1.73 sqM); Albumin 2.3 g/dL (3.5-5.0); Albumin/Globulin Ratio 0.9; Alkaline Phosphatase 60 U/L (38-126); Anion Gap 5 mmol/L; Blood Urea Nitrogen 8 mg/dL (7-17); Calcium 7.6 mg/dL (8.4-10.2); Carbon Dioxide 25 mmol/L (22-30); Chloride 109 mmol/L (98-107); Globulin 2.7 g/dL; Glucose 106 mg/dL (74-99); Non-African American GFR(CKD) >90 (>60 ml/min/1.73 sqM); Sodium 139 mmol/L (137-145); Total Bilirubin 0.6 mg/dL (0.2-1.3)
[2021-07-09] MEDS: ACETAMINOPHEN TAB 325 MG TAB PO PRN ×2 (09:35→19:37)
[2021-07-09] MEDS: FLUCONAZOLE IN NACL,ISO-OSM 100 MG in SALINE 1 50ML.BAG IVPB SCH (10:52)
[2021-07-09] MEDS: SODIUM CHLORIDE 0.9% 1,000 ML IV SCH (10:59)
[2021-07-09] MEDS: POTASSIUM CHLORIDE ER 20 MEQ TAB.ER PO SCH ×2 (11:00→16:30)
--- NOTE | 2021-07-09 11:02 | P.PN ---
Subjective Progress Note Date: 07/09/21 Principal diagnosis: febrile neutropenia Febrile this am 102. Transfuse platelets and PRBC today. Objective - Vital Signs Vital signs: Vital Signs Temp 98.9 F 07/09/21 04:30 Pulse 103 H 07/09/21 04:30 Resp 20 07/09/21 04:30 BP 93/59 07/09/21 04:30 Pulse Ox 96 07/09/21 04:30 Intake & Output 07/08/21 07/09/21 07/09/21 18:59 06:59 18:59 Intake Total 360 410 Output Total 2 Balance 360 408 Intake: Oral 360 100 Blood Product 0 310 Rc Irr As1 Unit 0 310 [id number] Output: Urine 1 Urine/Stool Mix 1 Other: Voiding Method Toilet Toilet # Voids 4 1 # Bowel Movements 1 1 - Exam - Constitutional General appearance: Present: average body habitus, cooperative, no acute distress - EENT Eyes: Present: anicteric sclerae, EOMI ENT: Present: hearing grossly normal, normal oropharynx - Respiratory Respiratory: bilateral: CTA - Cardiovascular Rhythm: regular Heart sounds: normal: S1, S2 Abnormal Heart Sounds: Absent: systolic murmur, diastolic murmur, rub, S3 Gallop, S4 Gallop, click, other - Peripheral edema leg Peripheral Edema: bilateral: None - Gastrointestinal General gastrointestinal: Present: normal bowel sounds, soft - Integumentary Integumentary: Present: normal turgor, pale, areas of eccymosis on forehead and arms, lower extremity RLE petechaei is darker and pronouced today. Also petechaei rash has extended up to thighs - Neurologic Neurologic: Present: CNII-XII intact - Musculoskeletal Musculoskeletal: Present: strength equal bilaterally - Psychiatric Psychiatric: Present: A&O x's 3, appropriate affect, intact judgment & insigh - Labs CBC & Chem 7: 07/09/21 07:37 07/09/21 07:37 Labs: Abnormal Lab Results - Last 24 Hours (Table) 07/07/21 07/08/21 07/08/21 Range/Units 07:19 05:30 05:30 WBC (3.8-10.6) k/uL RBC (3.80-5.40) m/uL Hgb (11.4-16.0) gm/dL Hct (34.0-46.0) % Plt Count (150-450) k/uL Potassium (3.5-5.1) mmol/L Chloride (98-107) mmol/L BUN 8.0 L (9.0-27.0) mg/dL Creatinine 0.5 L (0.6-1.5) mg/dL Glucose 120 H (70-110) mg/dL Calcium 7.7 L (8.7-10.3) mg/dL Phosphorus 1.7 L (2.4-5.1) mg/dL C-Reactive Protein 15.2 H (0.0-0.8) mg/dL Total Protein 5.2 L (6.2-8.2) g/dL Albumin 2.80 L (3.80-4.90) g/dL Albumin/Globulin Ratio 1.17 L (1.60-3.17) g/dL Procalcitonin 0.21 H (0.02-0.09) ng/mL Crossmatch See Detail 07/09/21 07/09/21 Range/Units 07:37 07:37 WBC 0.3 L* (3.8-10.6) k/uL RBC 2.17 L (3.80-5.40) m/uL Hgb 6.6 L* (11.4-16.0) gm/dL Hct 19.0 L* (34.0-46.0) % Plt Count 12 L* D (150-450) k/uL Potassium 3.0 L (3.5-5.1) mmol/L Chloride 109 H (98-107) mmol/L BUN (9.0-27.0) mg/dL Creatinine (0.6-1.5) mg/dL Glucose 106 H (70-110) mg/dL Calcium 7.6 L (8.7-10.3) mg/dL Phosphorus (2.4-5.1) mg/dL C-Reactive Protein (0.0-0.8) mg/dL Total Protein 5.0 L (6.2-8.2) g/dL Albumin 2.3 L (3.80-4.90) g/dL Albumin/Globulin Ratio (1.60-3.17) g/dL Procalcitonin (0.02-0.09) ng/mL Crossmatch Microbiology - Last 24 Hours (Table) 07/03/21 16:26 Blood Culture - Preliminary Blood No Growth after 120 hours 07/03/21 16:13 Blood Culture - Preliminary Blood No Growth after 120 hours 07/07/21 09:01 Blood Culture - Preliminary Blood No Growth after 24 hours 07/07/21 09:01 Blood Culture - Preliminary Blood No Growth after 24 hours Assessment and Plan (1) Neutropenic fever Current Visit: Yes Status: Acute Code(s): D70.9 - NEUTROPENIA, UNSPECIFIED; R50.81 - FEVER PRESENTING WITH CONDITIONS CLASSIFIED ELSEWHERE SNOMED Code(s): 109855970 (2) AML (acute myeloid leukemia) Current Visit: No Status: Acute Priority: High Code(s): C92.00 - ACUTE MYELOBLASTIC LEUKEMIA, NOT HAVING ACHIEVED REMISSION SNOMED Code(s): 79083851 (3) Anemia Current Visit: No Status: Acute Priority: High Code(s): D64.9 - ANEMIA, UNSPECIFIED SNOMED Code(s): 452931233 (4) Thrombocytopenia Current Visit: No Status: Acute Priority: High Code(s): D69.6 - THROMBOC YTOPENIA, UNSPECIFIED SNOMED Code(s): 476606056 Plan: Assessment and Recommendations: Febrile Neutropenia: - T Max 102.7 - 07/08/21 - Broad Spectrum ABX, AntiFungal, Anti VIRAL - Discussed with Dr. Marcano and ashlee add vancomycin back - Premedicate prior with benadryl - ID Following and restarted cefepime - Prophylaxic at discharge due to expected prolonged neutropenia Syncopal Episode: - Secondary to anemia versus Sepsis, versus other - Neuro cleared EEG and CT neg Nausea and Vomiting and Abdominal Cramping:Improved - Abdominal Imaging and Stool studies negative - Treatment for UTI - Bentyl PRN Hemoptysis: - Recheck DIC work-up, coags and fibrinogen show no evidence of DIC AML: - Start on Rydapt 50mg po BID x14 days. Started on 07/03/21 - Plan to see after discharge - Monitor TLS - Monitor infections - Aggressive and Proactive supportive care and electrolyte replacement Increased Respiratory Effort: - Patient and concerned with increased respiratory effort and new complaint of chest PLAN: Transfuse PRBC and Platelets today Replace Potassium, check mag, phos, Ldh daily Ct chest
[2021-07-09] MEDS ORDERED: VANCOMYCIN TROUGH DUE 1 EACH MISC MISCELLANE ONE (13:00)
--- NOTE | 2021-07-09 14:25 | XR ---
EXAMINATION TYPE: XR chest 1V portable DATE OF EXAM: 07/09/2021 COMPARISON: 07/07/2021 HISTORY: 61 years Female. STUDY INDICATION GIVEN: congestion and coughing . TECHNIQUE: Single chest radiograph FINDINGS AND IMPRESSION: Prominence of the interstitium suggest mild pulmonary edema, atypical viral infection small airway di sease. Clinical correlation recommended. No pneumothorax or pleural effusion. The heart and mediastinum are normal and silhouette. Right upper extremity PICC tip in the innominate SVC junction. No significant change since prior.
[2021-07-09] MEDS ORDERED: SODIUM CHLORIDE 0.65% NASAL SPRAY 44 ML BTL NASAL PRN (16:55)
[2021-07-09] MEDS ORDERED: RX INFO: IV CONTRAST WAS GIVEN 1 EACH MISC MISCELLANE PRN (17:14)
[2021-07-09] MEDS ORDERED: ALBUTEROL NEBULIZED 2.5 MG/3 ML INHALATION PRN (17:56)
[2021-07-09] MEDS ORDERED: FUROSEMIDE 10 MG/ML 2 ML VIAL IV ONE (17:59)
--- NOTE | 2021-07-09 18:03 | P.PN ---
Subjective Progress Note Date: 07/09/21 Patient was seen and evaluated by me today. She continues to spike fever with T-max of 102.5 the last 24 hours. Patient today is having some shortness of breath and appears tachypneic. Her lungs showed some rhonchi with end expiratory wheezing. Chest x-ray showed mild pulmonary edema. Objective - Vital Signs Vital signs: Vital Signs Temp 98.3 F 07/09/21 16:09 Pulse 98 07/09/21 16:09 Resp 18 07/09/21 16:09 BP 107/69 07/09/21 16:09 Pulse Ox 98 07/09/21 16:34 Intake & Output 07/08/21 07/09/21 07/09/21 18:59 06:59 18:59 Intake Total 360 410 550 Output Total 2 1 Balance 360 408 549 Intake: Oral 360 100 240 Blood Product 0 310 310 Rc Irr As1 Unit 310 [id number] Rc Irr As1 Unit 0 310 [id number] Output: Urine 1 1 Urine/Stool Mix 1 Other: Voiding Method Toilet Toilet Toilet # Voids 4 1 3 # Bowel Movements 1 1 2 - Exam General: The patient is awake and alert, in no distress Eye: there is normal conjunctiva bilaterally. Neck: The neck is supple, there is no JVD. Cardiovascular: Normal S1-S2, no S3-S4, no murmurs. Respiratory: Lungs with scattered rhonchi and end expiratory wheezing Gastrointestinal: Abdomen is soft, nontender Musculoskeletal: There is no pedal edema. . There is diffuse petechiae involving both legs and arms Neurological:. Speech is normal. Skin: Skin is warm and dry - Labs CBC & Chem 7: 07/09/21 07:37 07/09/21 07:37 Labs: Abnormal Lab Results - Last 24 Hours (Table) 07/07/21 07/08/21 07/09/21 Range/Units 07:19 05:30 07:37 WBC (3.8-10.6) k/uL RBC (3.80-5.40) m/uL Hgb (11.4-16.0) gm/dL Hct (34.0-46.0) % Plt Count (150-450) k/uL Potassium 3.0 L (3.5-5.1) mmol/L Chloride 109 H (98-107) mmol/L Glucose 106 H (74-99) mg/dL Calcium 7.6 L (8.4-10.2) mg/dL Total Protein 5.0 L (6.3-8.2) g/dL Albumin 2.3 L (3.5-5.0) g/dL Procalcitonin 0.21 H (0.02-0.09) ng/mL Crossmatch See Detail 07/09/21 Range/Units 07:37 WBC 0.3 L* (3.8-10.6) k/uL RBC 2.17 L (3.80-5.40) m/uL Hgb 6.6 L* (11.4-16.0) gm/dL Hct 19.0 L* (34.0-46.0) % Plt Count 12 L* D (150-450) k/uL Potassium (3.5-5.1) mmol/L Chloride (98-107) mmol/L Glucose (74-99) mg/dL Calcium (8.4-10.2) mg/dL Total Protein (6.3-8.2) g/dL Albumin (3.5-5.0) g/dL Procalcitonin (0.02-0.09) ng/mL Crossmatch Microbiology - Last 24 Hours (Table) 07/07/21 09:01 Blood Culture - Preliminary Blood No Growth after 48 hours 07/07/21 09:01 Blood Culture - Preliminary Blood No Growth after 48 hours 07/03/21 16:26 Blood Culture - Preliminary Blood No Growth after 120 hours 07/03/21 16:13 Blood Culture - Preliminary Blood No Growth after 120 hours Assessment and Plan Assessment: This is a very pleasant 61-year-old female who was recently diagnosed with AML and status post a week hospitalization for chemo that returned the hospital 2 days after discharge secondary to having 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 She was admitted directly under hematology and was consulted for medical management. Below is a list of her medical problems: 1. Neutropenic fever: May be attributed to Rydapt. Patient started on IV vanco mycin, IV cefepime, IV Acyclovir, and IV fluconazole. Infectious disease consulted for further evaluation. No clear source of infection. Chest x-ray and urinalysis unremarkable. Blood culture negative to date. 2. Sepsis without septic shock: Improved with IV fluid hydration and possibly some antibiotic. Lactic acid is normal 3. AML related and chemo-induced pancytopenia: Hematology following closely. Status post 5 units of PRBC and 4 units of platelet transfusion during this admission 4. Recently diagnosed AML status post induction chemotherapy 5. Episodes of tremors concerning for seizure: Less likely based on clinical presentation. Computed tomography scan of the head showed no acute findings. Neurology consulted and EEG showed no abnormal findings. No antiseizure medications recommended at this time. Today, I reviewed her medication list and lab work results. Patient's appears to be fluid overloaded. Wheezing is probably secondary to pulmonary edema. I ordered one time IV Lasix 20 mg. Discontinue IV fluids. Patient is receiving a lot of volume and today she got 1 unit of PRBC and currently scheduled for platelet transfusion. Albuterol nebulizer as needed. Blood culture negative. Lactic acid normal. Continue broad spectrum antibiotic. Today, I have updated the patient and her about her current condition. I answered all their questions to their satisfaction.
--- NOTE | 2021-07-09 19:01 | CT ---
EXAMINATION TYPE: CT chest w con DATE OF EXAM: 07/09/2021 COMPARISON: None HISTORY: SOB CT DLP: 393.6 mGycm Automated exposure control for dose reduction was used. CONTRAST: Performed with IV Contrast, patient injected with 100 mL of Isovue 300. Images obtained from the thoracic inlet to the diaphragm with IV contrast. There is some diffuse coarse interstitial infiltrate throughout the lungs. There is small right pleur al effusion. Heart size is normal. There is no pericardial effusion. There is some fatty infiltration of the liver. Upper abdominal soft tissues are intact. There are no hilar masses. There are a few bilateral bronchial lymph nodes that measure up to 1 cm. T here is 13 mm enlarged pretracheal lymph node. Thoracic aorta is intact. There is no aneurysm or diss ection. I see no evidence of filling defect in the pulmonary arteries. There is some spurring in the thoracic spine. I see no bony destructive process. Sternum is intact. T he ribs appear intact. IMPRESSION: Small right pleural effusion. Interstitial bilateral patchy pneumonia. There are few nonspecific medi astinal and bronchial lymph nodes. No cardiomegaly seen to suggest heart failure. Acute heart failure not excluded. Lymphangitic metastatic disease not excluded.
--- NOTE | 2021-07-09 19:10 | PN ---
PROGRESS NOTE DATE OF SERVICE: 07/09/2021 REASON FOR FOLLOW UP: Febrile neutropenia. INTERVAL HISTORY: Patient is afebrile. The patient is breathing comfortably. Has been complaining of nausea, vomiting. Has developed diarrhea with about 4 loose stools today. No chest pain, shortness of breath or cough. PHYSICAL EXAMINATION: Blood pressure 107/69, pulse of 98, temperature 98.3. She is 97% on room air. General description is a middle-aged female lying in bed in no distress. Respiratory system: Unlabored breathing, clear to auscultation anteriorly. Heart S1, S2. Regular rate and rhythm. Abdomen: Soft, no tenderness. DIAGNOSTIC IMPRESSION AND PLAN: Patient with febrile neutropenia in this patient with no obvious focus of infection. Culture has been negative so far. Now developing diarrhea. Possible antibiotic associated. We will check a stool for C diff continue positive and continue supportive care. MMODL / IJN: [id number] /
[2021-07-09 21:36] LABS: Magnesium 1.5 mg/dL (1.6-2.3); Phosphorus 1.6 mg/dL (2.5-4.5)
[2021-07-10] MEDS: CEFEPIME 2 GM in SODIUM CHLORIDE 0.9% 100 ML IVPB SCH ×4 (00:33→23:33)
[2021-07-10] MEDS: ACETAMINOPHEN TAB 325 MG TAB PO PRN ×2 (04:46→13:02)
[2021-07-10] MEDS: diphenhydrAMINE 50 MG/ML 1 ML VIAL IVP SCH ×3 (04:46→20:38)
[2021-07-10] MEDS: VANCOMYCIN 1,500 MG in SODIUM CHLORIDE 0.9% 250 ML IVPB SCH ×3 (05:11→21:11)
[2021-07-10] MEDS: ACYCLOVIR SODIUM 500 MG in SODIUM CHLORIDE 0.9% 100 ML IVPB SCH ×3 (05:31→21:41)
[2021-07-10 06:42] LABS: HCT 23.6 % (34.0-46.0); HGB 8.3 gm/dL (11.4-16.0); MCH 30.6 pg (25.0-35.0); MCHC 35.1 g/dL (31.0-37.0); MCV 87.1 fL (80.0-100.0); Mean Platelet Volume 9.6; Poikilocytosis Slight; RDW 14.5 % (11.5-15.5)
[2021-07-10 06:44] LABS: Platelet Count 17 k/uL (150-450); WBC 0.1 k/uL (3.8-10.6)
[2021-07-10 06:59] LABS: ALT 18 U/L (4-34); AST 34 U/L (14-36); African American GFR (CKD) >90 (>60 ml/min/1.73 sqM); Albumin 2.6 g/dL (3.5-5.0); Albumin/Globulin Ratio 0.9; Alkaline Phosphatase 77 U/L (38-126); Anion Gap 8 mmol/L; Blood Urea Nitrogen 9 mg/dL (7-17); Calcium 7.7 mg/dL (8.4-10.2); Carbon Dioxide 23 mmol/L (22-30); Chloride 108 mmol/L (98-107); Globulin 2.9 g/dL; Glucose 132 mg/dL (74-99); LDH 561 U/L (313-618); Magnesium 1.5 mg/dL (1.6-2.3); Non-African American GFR(CKD) >90 (>60 ml/min/1.73 sqM); Phosphorus 1.6 mg/dL (2.5-4.5); Sodium 139 mmol/L (137-145); Total Bilirubin 0.8 mg/dL (0.2-1.3); Total Protein 5.5 g/dL (6.3-8.2)
[2021-07-10 07:13] LABS: Potassium 2.5 mmol/L (3.5-5.1)
[2021-07-10] MEDS: MAGNESIUM SULFATE-D5W PMX 1 GM in DEXTROSE/WATER 1 100ML.BAG IVPB SCH ×2 (08:02→11:48)
[2021-07-10] MEDS: PANTOPRAZOLE 40 MG TABLET PO SCH (08:03)
[2021-07-10] MEDS: PARoxetine 10 MG TAB PO SCH (08:03)
[2021-07-10] MEDS: CHOLESTYRAMINE (WITH SUGAR) 4 GM PACKET PO SCH ×2 (08:03→17:42)
[2021-07-10] MEDS: POTAS-SOD-PHOS 278-164-250 MG 1 EACH PACKET PO SCH ×3 (08:04→20:37)
[2021-07-10] MEDS: SALT AND SODA MOUTHWASH 1,000 ML PO SCH ×4 (08:05→20:40)
[2021-07-10] MEDS: MIDOSTAURIN 25 MG PO SCH ×2 (08:05→20:36)
[2021-07-10] MEDS: POTASSIUM CHLORIDE 20 MEQ in WATER FOR INJECTION 1 100ML.BAG IVPB SCH ×3 (09:25→15:28)
--- NOTE | 2021-07-10 10:29 | P.PN ---
Subjective Progress Note Date: 07/10/21 Principal diagnosis: febrile neutropenia Worsening respiratory effort, requiring two liters on oxygen now. Imaging of Chest: pneumonia versus FLuid overload? We have asked pulmonary to evaluate and follow along with us. She continues to be febrile, 102 T max overnight. Diarrhea has restarted over the past 24-48 hours. Stool studies ordered and Questran re- added. Instructed patient to limit PO intake to clears if diarrhea or abdomen discomfort, she states understanding. Hypokalemia, Hypophosphatemia, Hypomagnesia - All supplemented, re-check later today. Potassium added to gentle fluid hydration given she is hypotensive and having diarrhea. Telemetry monitoring to restart with electrolyte imbalances and sepsis presentation. Continue very close monitoring and aggressive supportive care. CBC today is stable, if s/s bleeding will transfuse platelets otherwise recheck in AM. Objective - Vital Signs Vital signs: Vital Signs Temp 101 F H 07/10/21 06:24 Pulse 104 H 07/10/21 05:34 Resp 16 07/10/21 03:00 BP 103/67 07/10/21 03:00 Pulse Ox 94 L 07/10/21 03:00 Intake & Output 07/09/21 07/10/21 07/10/21 18:59 06:59 18:59 Intake Total 550 327 Output Total 1 Balance 549 327 Intake: Oral 240 Blood Product 310 327 Platelet Pheresis Pas 327 Psoralen Unit [id number] Rc Irr As1 Unit 310 [id number] Output: Urine 1 Other: Voiding Method Toilet Toilet # Voids 3 2 # Bowel Movements 2 - Exam - Constitutional General appearance: Present: average body habitus, cooperative, no acute distress - EENT Eyes: Present: anicteric sclerae, EOMI ENT: Present: hearing grossly normal, normal oropharynx - Respiratory Respiratory: bilateral: CTA - Cardiovascular Rhythm: regular Heart sounds: normal: S1, S2 Abnormal Heart Sounds: Absent: systolic murmur, diastolic murmur, rub, S3 Gallop, S4 Gallop, click, other - Peripheral edema leg Peripheral Edema: bilateral: None - Gastrointestinal General gastrointestinal: Present: normal bowel sounds, soft - Integumentary Integumentary: Present: normal turgor, pale, areas of eccymosis on forehead and arms, lower extremity RLE petechaei is darker and pronouced today. Also petechaei rash has extended up to thighs - Neurologic Neurologic: Present: CNII-XII intact - Musculoskeletal Musculoskeletal: Present: strength equal bilaterally - Psychiatric Psychiatric: Present: A&O x's 3, appropriate affect, intact judgment & insigh - Labs CBC & Chem 7: 07/10/21 06:06 07/10/21 06:06 Labs: Abnormal Lab Results - Last 24 Hours (Table) 07/07/21 07/09/21 07/10/21 Range/Units 07:19 20:44 06:06 WBC (3.8-10.6) k/uL RBC (3.80-5.40) m/uL Hgb (11.4-16.0) gm/dL Hct (34.0-46.0) % Plt Count (150-450) k/uL Potassium 2.5 L* (3.5-5.1) mmol/L Chloride 108 H (98-107) mmol/L Glucose 132 H (74-99) mg/dL Calcium 7.7 L (8.4-10.2) mg/dL Phosphorus 1.6 L 1.6 L (2.5-4.5) mg/dL Magnesium 1.5 L 1.5 L (1.6-2.3) mg/dL Total Protein 5.5 L (6.3-8.2) g/dL Albumin 2.6 L (3.5-5.0) g/dL Crossmatch See Detail 07/10/21 Range/Units 06:06 WBC 0.1 L* (3.8-10.6) k/uL RBC 2.70 L (3.80-5.40) m/uL Hgb 8.3 L D (11.4-16.0) gm/dL Hct 23.6 L (34.0-46.0) % Plt Count 17 L* (150-450) k/uL Potassium (3.5-5.1) mmol/L Chloride (98-107) mmol/L Glucose (74-99) mg/dL Calcium (8.4-10.2) mg/dL Phosphorus (2.5-4.5) mg/dL Magnesium (1.6-2.3) mg/dL Total Protein (6.3-8.2) g/dL Albumin (3.5-5.0) g/dL Crossmatch Microbiology - Last 24 Hours (Table) 07/03/21 16:26 Blood Culture - Final Blood No Growth after 144 hours 07/03/21 16:13 Blood Culture - Final Blood No Growth after 144 hours 07/08/21 16:00 Blood Culture - Preliminary Blood No Growth after 24 hours 07/07/21 09:01 Blood Culture - Preliminary Blood No Growth after 48 hours 07/07/21 09:01 Blood Culture - Preliminary Blood No Growth after 48 hours Assessment and Plan (1) Neutropenic fever Current Visit: Yes Status: Acute Code(s): D70.9 - NEUTROPENIA, UNSPECIFIED; R50.81 - FEVER PRESENTING WITH CONDITIONS CLASSIFIED ELSEWHERE SNOMED Code(s): 990746359 (2) AML (acute myeloid leukemia) Current Visit: No Status: Acute Priority: High Code(s): C92.00 - ACUTE MYELOBLASTIC LEUKEMIA, NOT HAVING ACHIEVED REMISSION SNOMED Code(s): 00364027 (3) Anemia Current Visit: No Status: Acute Priority: High Code(s): D64.9 - ANEMIA, UNSPECIFIED SNOMED Code(s): 168496050 (4) Thrombocytopenia Current Visit: No Status: Acute Priority: High Code(s): D69.6 - THROMBOCYTOPENIA, UNSPECIFIED SNOMED Code(s): 263577379 (5) Hypokalemia Current Visit: Yes Status: Acute Code(s): E87.6 - HYPOKALEMIA SNOMED Code(s): 63963171 (6) Hypomagnesemia Current Visit: Yes Status: Acute Code(s): E83.42 - HYPOMAGNESEMIA SNOMED Code(s): 997038633 (7) Hypophosphatemia Current Visit: Yes Status: Acute Code(s): E83.39 - OTHER DISORDERS OF PHOSPHORUS METABOLISM SNOMED Code(s): 1928252 (8) Hypocalcemia Current Visit: Yes Status: Acute Code(s): E83.51 - HYPOCALCEMIA SNOMED Code(s): 1544587 (9) Acute respiratory insufficiency Current Visit: Yes Status: Acute Code(s): R06.89 - OTHER ABNORMALITIES OF BREATHING SNOMED Code(s): 428260655 (10) Hospital-acquired pneumonia Current Visit: Yes Status: Acute Code(s): J18.9 - PNEUMONIA, UNSPECIFIED ORGANISM; Y95 - NOSOCOMIAL CONDITION SNOMED Code(s): 497928843 (11) Hypotension Current Visit: Yes Status: Acute Code(s): I95.9 - HYPOTENSION, UNSPECIFIED SNOMED Code(s): 62302410 (12) Sepsis Current Visit: Yes Status: Acute Code(s): A41.9 - SEPSIS, UNSPECIFIED ORGANISM SNOMED Code(s): 97574264 Plan: Assessment and Recommendations: Febrile Neutropenia: - T Max 102.4.07/10/21 - Broad Spectrum ABX, AntiFungal, Anti VIRAL - Discussed with Dr. Marcano and ashlee add vancomycin back - Premedicate prior with benadryl - ID Following - COmplicated with possible pneumonia, pulmonary asked to follow - Prophylaxic at discharge due to expected prolonged neutropenia Syncopal Episode: - Secondary to anemia versus Sepsis, versus other - Neuro cleared EEG and CT neg Nausea and Vomiting and Abdominal Cramping:Improved - Abdominal Imaging and Stool studies negative - Treatment for UTI - Bentyl PRN Hemoptysis: - Recheck DIC work-up, coags and fibrinogen show no evidence of DIC AML: - Start on Rydapt 50mg po BID x14 days. Started on 07/03/21 - Plan to see after discharge - Monitor TLS - Monitor infections - Aggressive and Proactive supportive care and electrolyte replacement Increased Respiratory Effort: - Patient and concerned with increased respiratory effort and new complaint of chest Diarrhea: - Questran added and recheck stool studies - Limit PO intake: Clears Hypokalemia: - Supplemented - TMS monitoring. - Added to gentle hydration Other electrolyte deficiencies: - Supp prn PLAN: Worsening respiratory effort, requiring two liters on oxygen now. Imaging of Chest: pneumonia versus FLuid overload? We have asked pulmonary to evaluate and follow along with us. She continues to be febrile, 102 T max overnight. Diarrhea has restarted over the past 24-48 hours. Stool studies ordered and Questran re- added. Instructed patient to limit PO intake to clears if diarrhea or abdomen discomfort, she states understanding. Hypokalemia, Hypophosphatemia, Hypomagnesia - All supplemented, re-check later today. Potassium added to gentle fluid hydration given she is hypotensive and having diarrhea. Telemetry monitoring to restart with electrolyte imbalances and sepsis presentation. Continue very close monitoring and aggressive supportive care. CBC today is stable, if s/s bleeding will transfuse platelets otherwise recheck in AM. Chills and Rigors, dilaudid x1 for symptoms. at bedside
[2021-07-10] MEDS: FLUCONAZOLE IN NACL,ISO-OSM 100 MG in SALINE 1 50ML.BAG IVPB SCH (11:48)
[2021-07-10] MEDS: 0.9% NACL WITH KCL 20 MEQ/L 1,000 ML IV SCH (12:16)
[2021-07-10] MEDS ORDERED: HYDROmorphone 0.5 MG/0.5 ML SYRINGE IVP STA (13:20)
[2021-07-10] MEDS ORDERED: DIPHENOX-ATROP 2.5-0.025 MG 1 EACH TAB PO PRN (13:21)
--- NOTE | 2021-07-10 14:08 | P.CNPUL ---
History of Present Illness Consult date: 07/10/21 Reason for consult: dyspnea History of present illness: I am seeing this 61-year-old female patient in consult because of possibility of a pneumonia. This is a newly diagnosed case of AML and the patient received induction chemotherapy and she was discharged home and she was readmitted for generalized weakness and loss in consciousness and an episode of syncope. Since then, the patient has been in the hospital and she's been having on and off episodes of fever. Infectious disease evaluated this patient. The patient had temperatures with a T-max of 102.9. This morning, the patient was still febrile with a temperature of 101.7. Due to concern for underlying pneumonia, the patient was covered with broad-spectrum antibiotics. Antibiotics were managed by infectious disease and the patient is currently on a combination of IV cefepi me that was started on 07/07/2021, IV vancomycin that was started on 07/08/2021, IV acyclovir that was started on 07/08/2021 and IV Diflucan there was started on 07/04/2021. The patient continues to be pancytopenic. Most recent white cell count from today is at 0.1 and the patient's plated count is at 17 with a hemoglobin of 8.3. Potassium level from this morning is at 2.5 needs to be replaced. The patient is currently on oxygen at 2 L per minute nasal cannula. The patient is also. The heart size was normal. No evidence of any pericardial effusion. Along with some increased shortness of breath, the patient was having some liquidy diarrhea. Stool for C. diff came back negative. Most recent vancomycin trough on April 08 with a 16.2. Liver function tests are essentially within normal limits. ProBNP level is at 6770. No oropharyngeal candidiasis. No difficulties in swallowing no aspiration. No hemoptysis. No pleurisy. Note that during the course of her hospitalization, the patient has already received a total of 4 units of platelets 5 units of packed RBCs. Review of Systems Constitutional: Reports fatigue, Reports fever, Reports lethargy, Reports poor appetite, Reports weakness Eyes: denies as per HPI, denies blurred vision, denies bulging eye, denies decreased vision, denies diplopia, denies discharge, denies dry eye, denies irritation, denies itching, denies pain, denies photophobia, denies loss of peripheral vision, denies loss of vision, denies tunnel vision/blind spots Ears: deny: decreased hearing, ear discharge, earache, tinnitus Ears, nose, mouth and throat: Reports as per HPI Breasts: absent: as per HPI, change in shape, gynecomastia, masses, nipple discharge, pain, skin changes, swelling Cardiovascular: Reports decreased exercise tolerance, Reports dyspnea on exertion Respiratory: Reports dyspnea Gastrointestinal: Reports diarrhea Genitourinary: Reports as per HPI Menstruation: Reports as per HPI Musculoskeletal: Reports as per HPI Musculoskeletal: absent: ankle pain, ankle stiffness, ankle swelling Integumentary: Reports as per HPI Neurological: Reports syncope, Reports weakness Psychiatric: Reports as per HPI Endocrine: Reports as per HPI Hematologic/Lymphatic: Reports as per HPI Allergic/Immunologic: Reports as per HPI Past Medical History Past Medical History: Cancer, Osteoarthritis (OA) Additional Past Medical History / Comment(s): AML History of Any Multi-Drug Resistant Organisms: None Reported Past Surgical History: Breast Surgery, Orthopedic Surgery Additional Past Surgical History / Comment(s): breast biopsy, arthroscopy left and right knee Past Anesthesia/Blood Transfusion Reactions: No Reported Reaction Past Psychological History: Anxiety Smoking Status: Never smoker Past Alcohol Use History: None Reported Past Drug Use History: None Reported - Past Family History Father Family Medical History: Cancer Mother Family Medical History: Diabetes Mellitus Medications and Allergies Home Medications Medication Instructions Recorded Confirmed Type PARoxetine [Paxil] 10 mg PO DAILY 12/17/18 07/03/21 History Multivit-Min/Iron/Folic/Lutein 1 tab PO DAILY 06/19/21 07/03/21 History [Centrum Silver Women Tablet] Acyclovir 400 mg PO BID #42 tablet 06/29/21 07/03/21 Rx Fluconazole [Diflucan] 100 mg PO DAILY #21 tab 06/29/21 07/03/21 Rx Levofloxacin [Levaquin] 500 mg PO DAILY 1 Days #21 tab 06/29/21 07/03/21 Rx Ondansetron [Zofran] 8 mg PO Q6HR PRN #45 tab 06/29/21 07/03/21 Rx Allergies Allergy/AdvReac Type Severity Reaction Status Date / Time No Known Allergies Allergy Verified 07/03/21 15:39 Physical Exam Vitals: Vital Signs Temp Pulse Pulse Resp BP BP Pulse Ox 07/10/21 13:07 101.7 F H 07/10/21 11:54 99.0 F 87 16 94/65 100 07/10/21 08:15 98.8 F 07/10/21 06:24 101 F H 07/10/21 05:34 102 F H 104 H 07/10/21 05:07 114 H 07/10/21 04:58 112 H 07/10/21 03:00 102.9 F H 117 H 16 103/67 94 L 07/10/21 00:37 98.8 F 89 16 100/64 07/09/21 23:00 98.9 F 89 89 18 92/60 96/58 92 L 07/09/21 22:30 98.2 F 92 16 97/62 96 07/09/21 22:20 98.4 F 58 L 16 89/60 92 L 07/09/21 21:00 101.1 F H 07/09/21 20:00 99.7 F H 07/09/21 19:35 102.8 F H 104 H 18 100/61 95 07/09/21 16:34 98 07/09/21 16:09 98.3 F 98 18 107/69 97 07/09/21 16:08 98.1 F 90 18 110/69 07/09/21 14:00 98.4 F 94 18 108/69 98 07/09/21 13:51 98.8 F 99 18 102/67 Intake and Output 07/09/21 07/10/21 07/10/21 22:59 06:59 14:59 Intake Total 550 327 Balance 550 327 Intake: Oral 240 Blood Product 310 327 Platelet Pheresis Pas 0 327 Psoralen Unit [id number] Rc Irr As1 Unit 310 [id number] Other: Voiding Method Toilet # Voids 3 2 Gen. appearance the patient is calm and comfortable, she is not having any significant as per distress Head exam was generally normal. There was no scleral icterus or corneal arcus. Mucous membranes were moist. Neck was supple and without jugular venous distension, thyromegaly, or carotid bruits. Carotids were easily palpable bilaterally. There was no adenopathy. Lungs sounds are diminished otherwise clear. Breath sounds are equal and symm etrical bilaterally. Cardiac exam revealed the PMI to be normally situated and sized. The rhythm was regular and no extrasystoles were noted during several minutes of auscultation. The first and second heart sounds were normal and physiologic splitting of the second heart sound was noted. There were no murmurs, rubs, clicks, or gallops. Abdominal exam revealed normal bowel sounds. The abdomen was soft, non-tender, and without masses, organomegaly, or appreciable enlargement of the abdominal aorta. Examination of the extremities revealed easily palpable radial, femoral and pedal pulses. There was no cyanosis, clubbing or edema. Examination of the skin revealed no evidence of significant rashes, suspicious appearing nevi or other concerning lesions. Neurologically, the patient is awake and alert and the patient does not have any focal neurological deficit. Cranial nerves are essentially intact. Results - Laboratory Findings CBC and BMP: 07/10/21 06:06 07/10/21 06:06 PT/INR, D-dimer PT 11.7 sec (9.0-12.0) 07/08/21 05:30 INR 1.1 (<1.2) 07/08/21 05:30 D-Dimer 1.60 mg/L FEU (<0.60) H 07/08/21 05:30 Abnormal lab findings: Abnormal Labs 07/03/21 07/03/21 07/03/21 16:13 16:13 16:13 WBC 0.1 L* RBC 2.12 L Hgb 7.2 L Hct 20.0 L RDW 15.8 H Plt Count 15 L* APTT 20.7 L Fibrinogen 537 H D-Dimer Sodium 136 L Potassium Chloride BUN Creatinine Glucose 137 H Uric Acid 1.7 L Calcium Phosphorus Magnesium ALT 41 H C-Reactive Protein Total Protein Albumin Albumin/Globulin Ratio Procalcitonin Urine Protein Urine Blood Amorphous Sediment Urine Bacteria Hyaline Casts Urine Mucus Crossmatch 07/03/21 07/03/21 07/04/21 16:13 16:20 04:57 WBC 0.3 L* RBC 2.12 L Hgb 7.0 L Hct 19.3 L* RDW 15.7 H Plt Count 21 L APTT Fibrinogen D-Dimer Sodium Potassium Chloride BUN Creatinine Glucose Uric Acid Calcium Phosphorus Magnesium ALT C-Reactive Protein Total Protein Albumin Albumin/Globulin Ratio Procalcitonin Urine Protein Trace H Urine Blood Trace H Amorphous Sediment Moderate H Urine Bacteria Rare H Hyaline Casts 3 H Urine Mucus Few H Crossmatch See Detail 07/04/21 07/05/21 07/05/21 04:57 06:47 06:47 WBC RBC Hgb Hct RDW Plt Count APTT Fibrinogen D-Dimer Sodium Potassium Chloride 108 H BUN Creatinine Glucose 106 H Uric Acid 1.8 L Calcium 7.7 L 7.8 L Phosphorus Magnesium ALT C-Reactive Protein 8.9 H Total Protein 5.9 L Albumin 3.20 L Albumin/Globulin Ratio 1.19 L Procalcitonin 0.12 H Urine Protein Urine Blood Amorphous Sediment Urine Bacteria Hyaline Casts Urine Mucus Crossmatch 07/05/21 07/05/21 07/06/21 06:47 20:20 06:10 WBC 0.2 L* 0.2 L* RBC 2.06 L 2.24 L Hgb 6.6 L* 7.2 L Hct 19.0 L* 19.7 L* RDW 15.7 H Plt Count 16 L* 15 L* APTT Fibrinogen D-Dimer Sodium Potassium Chloride BUN Creatinine Glucose Uric Acid Calcium Phosphorus 2.0 L Magnesium ALT C-Reactive Protein Total Protein Albumin Albumin/Globulin Ratio Procalcitonin Urine Protein Urine Blood Amorphous Sediment Urine Bacteria Hyaline Casts Urine Mucus Crossmatch 07/06/21 07/06/21 07/06/21 06:10 20:27 20:27 WBC 0.2 L* RBC 2.47 L Hgb 7.7 L Hct 22.3 L RDW Plt Count 10 L* APTT Fibrinogen 587 H D-Dimer Sodium Potassium Chloride BUN 8.0 L Creatinine 0.5 L Glucose 127 H Uric Acid Calcium 7.3 L Phosphorus 1.5 L Magnesium ALT C-Reactive Protein Total Protein 5.6 L Albumin 3.00 L Albumin/Globulin Ratio 1.15 L Procalcitonin Urine Protein Urine Blood Amorphous Sediment Urine Bacteria Hyaline Casts Urine Mucus Crossmatch 07/07/21 07/07/21 07/07/21 05:11 05:11 07:19 WBC 0.1 L* RBC 2.13 L Hgb 6.6 L* Hct 18.8 L* RDW Plt Count 11 L* APTT Fibrinogen D-Dimer Sodium Potassium 3.0 L Chloride BUN Creatinine 0.44 L Glucose 117 H Uric Acid Calcium 7.9 L Phosphorus 2.2 L Magnesium ALT C-Reactive Protein Total Protein 5.5 L Albumin 2.6 L Albumin/Globulin Ratio Procalcitonin Urine Protein Urine Blood Amorphous Sediment Urine Bacteria Hyaline Casts Urine Mucus Crossmatch See Detail 07/07/21 07/07/21 07/08/21 13:10 20:36 05:30 WBC 0.2 L* RBC 2.27 L Hgb 7.0 L Hct 19.9 L* RDW Plt Count 32 L D APTT Fibrinogen 591 H D-Dimer Sodium Potassium Chloride BUN Creatinine Glucose Uric Acid Calcium Phosphorus Magnesium ALT C-Reactive Protein Total Protein Albumin Albumin/Globulin Ratio Procalcitonin 0.21 H Urine Protein Urine Blood Amorphous Sediment Urine Bacteria Hyaline Casts Urine Mucus Crossmatch 07/08/21 07/08/21 07/08/21 05:30 05:30 05:30 WBC 0.2 L* RBC 2.11 L Hgb 6.7 L* Hct 18.7 L* RDW Plt Count 31 L APTT Fibrinogen 582 H D-Dimer 1.60 H Sodium Potassium Chloride BUN 8.0 L Creatinine 0.5 L Glucose 120 H Uric Acid Calcium 7.7 L Phosphorus 1.7 L Magnesium ALT C-Reactive Protein 15.2 H Total Protein 5.2 L Albumin 2.80 L Albumin/Globulin Ratio 1.17 L Procalcitonin Urine Protein Urine Blood Amorphous Sediment Urine Bacteria Hyaline Casts Urine Mucus Crossmatch 07/09/21 07/09/21 07/09/21 07:37 07:37 20:44 WBC 0.3 L* RBC 2.17 L Hgb 6.6 L* Hct 19.0 L* RDW Plt Count 12 L* D APTT Fibrinogen D-Dimer Sodium Potassium 3.0 L Chloride 109 H BUN Creatinine Glucose 106 H Uric Acid Calcium 7.6 L Phosphorus 1.6 L Magnesium 1.5 L ALT C-Reactive Protein Total Protein 5.0 L Albumin 2.3 L Albumin/Globulin Ratio Procalcitonin Urine Protein Urine Blood Amorphous Sediment Urine Bacteria Hyaline Casts Urine Mucus Crossmatch 07/10/21 07/10/21 06:06 06:06 WBC 0.1 L* RBC 2.70 L Hgb 8.3 L D Hct 23.6 L RDW Plt Count 17 L* APTT Fibrinogen D-Dimer Sodium Potassium 2.5 L* Chloride 108 H BUN Creatinine Glucose 132 H Uric Acid Calcium 7.7 L Phosphorus 1.6 L Magnesium 1.5 L ALT C-Reactive Protein Total Protein 5.5 L Albumin 2.6 L Albumin/Globulin Ratio Procalcitonin Urine Protein Urine Blood Amorphous Sediment Urine Bacteria Hyaline Casts Urine Mucus Crossmatch - Diagnostic Findings Chest x-ray: image reviewed Assessment and Plan Plan: 1 bilateral pneumonia with coarse interstitial pulmonary infiltrates, consider opportunistic infections especially with her underlying immunosuppression. Currently on a combination of antibiotics splitting cefepime, vancomycin, Diflucan and acyclovir. Possibilities would include bacterial pneumonia whether it's regular or opportunistic. Fungi need to be considered especially Aspergillus as the patient has had prolonged neutropenia this been going on for more than 2 weeks. Other agents include CMV and lastly PCP needs to be considered especially the patient has depleted white cell count has not received any prophylaxis hours this agent. 2 acute hypoxic respiratory failure currently on 2 L about 2 by nasal cannula 3 shortness of breath secondary to but not limited to above mentioned pneumonia. 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 Cultures are negative and the patient is covered with broad-spectrum antibiotics. The patient is a PICC line in the right upper extremity 7 electrolytes disturbance, being managed and replaced 8 diarrhea, stool for C. diff has been negative Plan Agree on the current management Monitor fever pattern Monitor cultures Keep same antibiotic coverage and infectious diseases on the case Modified oxygen flow to maintain a saturation above 90% Monitor hematologic profile. Sputum Gram stain and culture were sent. Add Legionella urine antigen COVID-19 testing by PCR Galactomannan assay for fungal infections including Aspergillus However, consider broadening the antifungal agent to cover Aspergillus specially the patient's fever and respiratory status remains unchanged.. Obviously the patient has risk factor for Aspergillus pneumonia including duration and severity of the neutropenia. Another possibility would include PCP in the setting of an improvement of an ache pneumonia and hypoxemia. May ultimately need a bronchoscopy with BAL for final microbial diagnosis. We'll make it final decision with next 24-48 hours. If the fever persists, will add platelets and would proceed with bronchoscopy within next 24-48 hours and obtain a bronchioloalveolar lavage
[2021-07-10] MEDS ORDERED: ALBUTEROL NEBULIZED 2.5 MG/3 ML INHALATION STA (17:35)
[2021-07-10] MEDS ORDERED: FUROSEMIDE 10 MG/ML 2 ML VIAL IV ONE (17:57)
--- NOTE | 2021-07-10 18:03 | P.PN ---
Subjective Progress Note Date: 07/10/21 Patient was seen and evaluated by me this evening. She was having problems with wheezing and mild shortness of breath. Patient was noted to be significantly hypokalemic and hypomagnesemic this morning and received IV replacement. Patient told me that albuterol analyze her head with her symptoms last night. Objective - Vital Signs Vital signs: Vital Signs Temp 99.6 F 07/10/21 17:24 Pulse 108 H 07/10/21 17:56 Resp 18 07/10/21 17:24 BP 106/67 07/10/21 17:24 Pulse Ox 91 L 07/10/21 17:24 Intake & Output 07/09/21 07/10/21 07/10/21 18:59 06:59 18:59 Intake Total 550 327 Output Total 1 Balance 549 327 Weight 80.9 kg Intake: Oral 240 Blood Product 310 327 Platelet Pheresis Pas 327 Psoralen Unit [id number] Rc Irr As1 Unit 310 [id number] Output: Urine 1 Other: Voiding Method Toilet Toilet # Voids 3 2 # Bowel Movements 2 - Exam General: The patient is awake and alert, in no distress Eye: there is normal conjunctiva bilaterally. Neck: The neck is supple, there is no JVD. Cardiovascular: Normal S1-S2, no S3-S4, no murmurs. Respiratory: Lungs with s mild end expiratory wheezing Gastrointestinal: Abdomen is soft, nontender Musculoskeletal: There is no pedal edema. . There is diffuse petechiae involving both legs and arms Neurological:. Speech is normal. Skin: Skin is warm and dry - Labs CBC & Chem 7: 07/10/21 06:06 07/10/21 06:06 Labs: Abnormal Lab Results - Last 24 Hours (Table) 07/09/21 07/10/21 07/10/21 Range/Units 20:44 06:06 06:06 WBC 0.1 L* (3.8-10.6) k/uL RBC 2.70 L (3.80-5.40) m/uL Hgb 8.3 L D (11.4-16.0) gm/dL Hct 23.6 L (34.0-46.0) % Plt Count 17 L* (150-450) k/uL Potassium 2.5 L* (3.5-5.1) mmol/L Chloride 108 H (98-107) mmol/L Glucose 132 H (74-99) mg/dL Calcium 7.7 L (8.4-10.2) mg/dL Phosphorus 1.6 L 1.6 L (2.5-4.5) mg/dL Magnesium 1.5 L 1.5 L (1.6-2.3) mg/dL Total Protein 5.5 L (6.3-8.2) g/dL Albumin 2.6 L (3.5-5.0) g/dL Microbiology - Last 24 Hours (Table) 07/09/21 13:00 Blood Culture - Preliminary Blood No Growth after 24 hours 07/10/21 05:52 Stool Culture - Preliminary Stool 07/09/21 05:00 Gram Stain - Preliminary Sputum Sputum Culture - Preliminary 07/07/21 09:01 Blood Culture - Preliminary Blood No Growth after 72 hours 07/07/21 09:01 Blood Culture - Preliminary Blood No Growth after 72 hours 07/03/21 16:26 Blood Culture - Final Blood No Growth after 144 hours 07/03/21 16:13 Blood Culture - Final Blood No Growth after 144 hours 07/08/21 16:00 Blood Culture - Preliminary Blood No Growth after 24 hours Assessment and Plan Assessment: This is a very pleasant 61-year-old female who was recently diagnosed with AML and status post a week hospitalization for chemo that returned the hospital 2 days after discharge 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 She was admitted directly under hematology and was consulted for medical management. Below is a list of her medical problems: 1. Neutropenic fever: Persistent with concern about underlying opportunistic infection. May be partially attributed to Rydapt. Patient started on IV vancomycin, IV cefepime, IV Acyclovir, and IV fluconazole since admission. Infectious disease consulted for further evaluation. Urinalysis unremarkable. Blood culture negative to date. 2. Sepsis without septic shock: Improved with IV fluid hydration and possibly some antibiotic. Lactic acid is normal 3. Suspected bilateral pneumonia, with concerns about opportunistic infection. Pro-calcitonin only slightly elevated but patient is significantly immunocompromised. He was seen and evaluated by pulmonology. Consideration for possible bronchoscopy with BAL 4. AML related and chemo-induced pancytopenia: Hematology following closely. Status post 5 units of PRBC and 4 units of platelet transfusion during this admission 5. Recently diagnosed AML status post induction chemotherapy 6. Episodes of tremors concerning for seizure: Less likely based on clinical presentation. Computed tomography scan of the head showed no acute findings. Neurology consulted and EEG showed no abnormal findings. No antiseizure medications recommended at this time. Today, I reviewed her medication list and lab work results. Patient's appears to be fluid overloaded. I ordered a second dose IV Lasix 20 mg. patient is his first dose last night with good response.. Patient received a lot of volume during this admission with blood products and a lot of IV fluid hydration. Her proBNP is elevated suggestive for possible CHF. Echocardiogram done 2 weeks ago prior to starting chemo showed preserved ejection fraction. A consider repeat limited echo to assess EF. Blood culture negative. Lactic acid normal. Continue broad spectrum antibiotic. Today, I have updated the patient and her about her current condition. I answered all their questions to their satisfaction.
[2021-07-10 19:48] LABS: African American GFR (CKD) >90 (>60 ml/min/1.73 sqM); Anion Gap 9 mmol/L; Blood Urea Nitrogen 9 mg/dL (7-17); Calcium 8.1 mg/dL (8.4-10.2); Carbon Dioxide 24 mmol/L (22-30); Chloride 106 mmol/L (98-107); Glucose 152 mg/dL (74-99); Magnesium 2.1 mg/dL (1.6-2.3); Non-African American GFR(CKD) 81 (>60 ml/min/1.73 sqM); Phosphorus 3.3 mg/dL (2.5-4.5); Potassium 3.5 mmol/L (3.5-5.1); Sodium 139 mmol/L (137-145)
--- NOTE | 2021-07-10 20:02 | PN ---
PROGRESS NOTE DATE OF SERVICE: 07/10/2021 REASON FOR FOLLOWUP: Febrile neutropenia. INTERVAL HISTORY: The patient did spike a fever again this afternoon. No significant tachycardia with these episodes of fever. Patient denies having any chest pain. Minimal cough. No nausea, no vomiting. No abdominal pain or any worsening diarrhea. PHYSICAL EXAMINATION: On examination, blood pressure 94/65, pulse of 87, temperature 99. She is 100% on 2 L nasal cannula. GENERAL DESCRIPTION: General description is a middle-aged female up in the bed in no distress. RESPIRATORY SYSTEM: Unlabored breathing. Decreased intensity of breath sounds. No wheeze. HEART: S1, S2. Regular rate and rhythm. ABDOMEN: Soft. No tenderness. EXTREMITIES: No edema of the feet. LABS: Hemoglobin is 8.3, white count 0.1, BUN of 9, creatinine 0.64. Vilchis PCR is negative. Stool for C difficile was negative. DIAGNOSTIC IMPRESSION AND PLAN: Patient with febrile neutropenia; questionable medication effect. Clinically not behaving as pneumonia. No obvious of focus of infection. Patient is covered with cefepime and vancomycin; to continue while monitoring her clinical course closely. Continue supportive care. MMODL / IJN: [id number] /
[2021-07-10] MEDS: ALBUTEROL NEBULIZED 2.5 MG/3 ML INHALATION SCH (21:00)
[2021-07-10] MEDS: LORazepam 2 MG/ML INJ IV PRN (23:33)
[2021-07-11] MEDS: diphenhydrAMINE 50 MG/ML 1 ML VIAL IVP SCH ×3 (03:41→19:15)
[2021-07-11] MEDS: 0.9% NACL WITH KCL 20 MEQ/L 1,000 ML IV SCH (03:42)
[2021-07-11] MEDS: VANCOMYCIN 1,500 MG in SODIUM CHLORIDE 0.9% 250 ML IVPB SCH ×3 (04:51→22:15)
[2021-07-11] MEDS: ACYCLOVIR SODIUM 500 MG in SODIUM CHLORIDE 0.9% 100 ML IVPB SCH ×3 (04:51→22:14)
[2021-07-11] MEDS: ALBUTEROL NEBULIZED 2.5 MG/3 ML INHALATION PRN (04:58)
[2021-07-11 05:03] LABS: INR 1.3 (<1.2); Prothrombin Time 13.4 sec (9.0-12.0)
[2021-07-11] MEDS ORDERED: FUROSEMIDE 10 MG/ML 4 ML VIAL IV STA (05:40)
[2021-07-11 06:03] LABS: ALT 29 U/L (4-34); AST 42 U/L (14-36); African American GFR (CKD) 72 (>60 ml/min/1.73 sqM); Albumin 2.7 g/dL (3.5-5.0); Albumin/Globulin Ratio 0.9; Alkaline Phosphatase 87 U/L (38-126); Anion Gap 9 mmol/L; Blood Urea Nitrogen 10 mg/dL (7-17); Calcium 8.1 mg/dL (8.4-10.2); Carbon Dioxide 22 mmol/L (22-30); Chloride 107 mmol/L (98-107); Globulin 2.9 g/dL; Glucose 158 mg/dL (74-99); Non-African American GFR(CKD) 62 (>60 ml/min/1.73 sqM); Phosphorus 2.9 mg/dL (2.5-4.5); Potassium 3.5 mmol/L (3.5-5.1); Sodium 138 mmol/L (137-145); Total Bilirubin 0.6 mg/dL (0.2-1.3); Total Protein 5.6 g/dL (6.3-8.2); Uric Acid 2.8 mg/dL (3.7-7.4)
[2021-07-11 06:23] LABS: Glucose,Whole Blood 159 mg/dL (75-99)
[2021-07-11 06:50] LABS: HCT 23.3 % (34.0-46.0); MCH 30.9 pg (25.0-35.0); MCHC 34.6 g/dL (31.0-37.0); MCV 89.5 fL (80.0-100.0); Mean Platelet Volume 9.2; RDW 14.6 % (11.5-15.5)
[2021-07-11 07:01] LABS: WBC 0.3 k/uL (3.8-10.6)
[2021-07-11 07:02] LABS: Platelet Count 10 k/uL (150-450)
[2021-07-11] MEDS: ALBUTEROL NEBULIZED 2.5 MG/3 ML INHALATION SCH ×4 (08:18→20:25)
--- NOTE | 2021-07-11 08:18 | XR ---
EXAMINATION TYPE: XR chest 1V portable DATE OF EXAM: 07/11/2021 CLINICAL HISTORY: Difficulty breathing progress study. History of cancer on chemotherapy. TECHNIQUE: Single AP portable upright view of the chest is obtained. COMPARISON: Chest x-ray and CT chest from 2 days earlier FINDINGS: Stable right-sided PICC line. Reticular and reticulonodular opacities bilaterally redemons trated slightly more prominent with more prominent small to tiny bilateral pleural effusions. Cardiac silhouette size is stable and mildly enlarged. Osseous structures are intact. IMPRESSION: Suspect more prominent interstitial edema and small to tiny bilateral pleural effusions o n background bilateral reticulonodular changes, correlate for fluid overload state and/or CHF exacerb ation.
[2021-07-11] MEDS: PANTOPRAZOLE 40 MG TABLET PO SCH (08:20)
[2021-07-11] MEDS: CEFEPIME 2 GM in SODIUM CHLORIDE 0.9% 100 ML IVPB SCH ×2 (08:20→17:33)
[2021-07-11] MEDS: PARoxetine 10 MG TAB PO SCH (09:27)
[2021-07-11] MEDS: POTAS-SOD-PHOS 278-164-250 MG 1 EACH PACKET PO SCH ×3 (09:27→21:47)
[2021-07-11] MEDS: FLUCONAZOLE IN NACL,ISO-OSM 100 MG in SALINE 1 50ML.BAG IVPB SCH (09:27)
[2021-07-11] MEDS: SALT AND SODA MOUTHWASH 1,000 ML PO SCH ×4 (09:30→21:47)
[2021-07-11] MEDS: MIDOSTAURIN 25 MG PO SCH ×2 (09:54→21:46)
[2021-07-11] MEDS: CHOLESTYRAMINE (WITH SUGAR) 4 GM PACKET PO SCH ×2 (10:24→19:03)
--- NOTE | 2021-07-11 11:56 | P.PN ---
Subjective Progress Note Date: 07/11/21 On today's evaluation of 07/11/2021, the patient is clinically worse and the patient got transferred to the intensive care unit as the patient became more short of breath. Yesterday she was on 2 L of oxygen by nasal cannula and by around 4 AM this morning the patient became more short of breath and hypoxic and she had to be placed on 9 L of oxygen by nasal cannula. Her current pulse ox is 91%. She is still spiking fever. Her chest x-ray shows worsening of the bilateral pulmonary infiltrates consistent with pneumonia. She continues to be pancytopenic with a white cell count of 0.3 and hemoglobin of 8 with a platelet count of 10. Blood cultures of been negative. Sputum cultures been negative. The COVID-19 testing was rechecked and was negative. The patient has also Legionella urine antigen pending. The plan is to proceed with a bronchoscopy and the bronchioloalveolar lavage to establish microbial diagnoses with a high suspicion for an underlying which is thick infection. Meanwhile, the patient is being seen by infectious disease and she is still covered with same antibiotic coverage. She is on combination of cefepime and vancomycin. She is also on acyclovir and Diflucan. Case was discussed with the . Objective - Vital Signs Vital signs: Vital Signs Temp 100.2 F H 07/11/21 08:00 Pulse 95 07/11/21 11:48 Resp 25 H 07/11/21 11:00 BP 94/59 07/11/21 11:00 Pulse Ox 98 07/11/21 11:00 Intake & Output 07/10/21 07/11/21 07/11/21 18:59 06:59 18:59 Intake Total 1150 325 Output Total 4 750 Balance 1150 -4 -425 Weight 80.9 kg Intake: IV 325 0.9% NaCl with KCl 20 Meq 200 /l 1,000 ml @ 50 mls/hr IV .Q20H [facility] Rx#: [id number] Cefepime 2 gm In Sodium 75 Chloride 0.9% 100 ml @ 25 mls/hr IVPB Q8H [facility] Rx#: [id number] Fluconazole in NaCl,Iso- 50 Osm 100 mg In Saline 1 50ml.bag @ 50 mls/hr IVPB DAILY [facility] Rx#:[id number] Intake, IV Titration 1150 Amount 0.9% NaCl with KCl 20 Meq 200 /l 1,000 ml @ 50 mls/hr IV .Q20H [facility] Rx#: [id number] Acyclovir Sodium 500 mg 100 In Sodium Chloride 0.9% 100 ml @ 100 mls/hr IVPB Q8H [facility] Rx#:[id number] Cefepime 2 gm In Sodium 100 Chloride 0.9% 100 ml @ 25 mls/hr IVPB Q8H [facility] Rx#: [id number] Magnesium Sulfate-D5w Pmx 200 1 gm In Dextrose/Water 1 100ml.bag @ 100 mls/hr IVPB Q1H [facility] Rx#: [id number] Potassium Chloride 20 meq 300 In Water For Injection 1 100ml.bag @ 50 mls/hr IVPB Q4HR [facility] Rx#: [id number] Vancomycin 1,500 mg In 250 Sodium Chloride 0.9% 250 ml @ 125 mls/hr IVPB Q8H [facility] Rx#:[id number] Output: Urine 750 Urine/Stool Mix 2 Emesis 2 Other: Voiding Method Toilet Bedside Commode # Voids 2 1 # Bowel Movements 2 - Exam Gen. appearance the patient is calm and comfortable, she is not having any significant as per distress, slightly more short of breath compared to yesterday currently on 9 L of oxygen by nasal cannula Head exam was generally normal. There was no scleral icterus or corneal arcus. Mucous membranes were moist. Neck was supple and without jugular venous distension, thyromegaly, or carotid bruits. Carotids were easily palpable bilaterally. There was no adenopathy. Lungs sounds are diminished otherwise clear. Breath sounds are equal and symmetrical bilaterally. Cardiac exam revealed the PMI to be normally situated and sized. The rhythm was regular and no extrasystoles were noted during several minutes of auscultation. The first and second heart sounds were normal and physiologic splitting of the second heart sound was noted. There were no murmurs, rubs, clicks, or gallops. Abdominal exam revealed normal bowel sounds. The abdomen was soft, non-tender, and without masses, organomegaly, or appreciable enlargement of the abdominal aorta. Examination of the extremities revealed easily palpable radial, femoral and pedal pulses. There was no cyanosis, clubbing or edema. Examination of the skin revealed no evidence of significant rashes, suspicious appearing nevi or other concerning lesions. Neurologically, the patient is awake and alert and the patient does not have any focal neurological deficit. Cranial nerves are essentially intact. - Labs CBC & Chem 7: 07/11/21 04:41 07/11/21 04:41 Labs: Abnormal Lab Results - Last 24 Hours (Table) 07/10/21 07/11/21 07/11/21 Range/Units 18:46 04:41 04:41 WBC (3.8-10.6) k/uL RBC (3.80-5.40) m/uL Hgb (11.4-16.0) gm/dL Hct (34.0-46.0) % Plt Count (150-450) k/uL PT 13.4 H (9.0-12.0) sec INR 1.3 H (<1.2) Glucose 152 H 158 H (74-99) mg/dL POC Glucose (mg/dL) (75-99) mg/dL Uric Acid 2.8 L (3.7-7.4) mg/dL Calcium 8.1 L 8.1 L (8.4-10.2) mg/dL AST 42 H (14-36) U/L Total Protein 5.6 L (6.3-8.2) g/dL Albumin 2.7 L (3.5-5.0) g/dL 07/11/21 07/11/21 Range/Units 04:41 06:21 WBC 0.3 L* (3.8-10.6) k/uL RBC 2.60 L (3.80-5.40) m/uL Hgb 8.0 L (11.4-16.0) gm/dL Hct 23.3 L (34.0-46.0) % Plt Count 10 L* (150-450) k/uL PT (9.0-12.0) sec INR (<1.2) Glucose (74-99) mg/dL POC Glucose (mg/dL) 159 H (75-99) mg/dL Uric Acid (3.7-7.4) mg/dL Calcium (8.4-10.2) mg/dL AST (14-36) U/L Total Protein (6.3-8.2) g/dL Albumin (3.5-5.0) g/dL Microbiology - Last 24 Hours (Table) 07/07/21 09:01 Blood Culture - Preliminary Blood No Growth after 96 hours 07/07/21 09:01 Blood Culture - Preliminary Blood No Growth after 96 hours 07/10/21 19:00 Urine Culture - Preliminary Urine,Voided 07/08/21 16:00 Blood Culture - Preliminary Blood No Growth after 48 hours 07/09/21 13:00 Blood Culture - Preliminary Blood No Growth after 24 hours 07/10/21 05:52 Stool Culture - Preliminary Stool 07/09/21 05:00 Gram Stain - Preliminary Sputum Sputum Culture - Preliminary Assessment and Plan Plan: 1 bilateral pneumonia with coarse interstitial pulmonary infiltrates, consider opportunistic infections especially with her underlying immunosuppression. Currently on a combination of antibiotics splitting cefepime, vancomycin, Diflucan and acyclovir. Possibilities would include bacterial pneumonia whether it's regular or opportunistic. Fungi need to be considered especially Aspergillus as the patient has had prolonged neutropenia this been going on for more than 2 weeks. Other agents include CMV and lastly PCP needs to be considered especially the patient has depleted white cell count has not received any prophylaxis hours this agent. On today's evaluation of 07/11/2021, there is obvious worsening the patient's condition clinically and objectively her oxygenation has gotten worse where the patient is currently on 9 L by nasal cannula because of worsening in oxygen desaturation and worsening shortness of breath. Chest x-ray shows progression interval worsening with development of worsening in the bilateral pulmonary infiltrates. 2 acute hypoxic respiratory failure currently on 9 L nasal cannula 3 shortness of breath secondary to but not limited to above mentioned pneumonia. 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 Cultures are negative and the patient is covered with broad-spectrum antibiotics. The patient is a PICC line in the right upper extremity 7 electrolytes disturbance, being managed and replaced 8 diarrhea, stool for C. diff has been negative Plan Patient is continuing to have fever. We'll continue monitoring the fever pattern. We'll proceed with a bronchoscopy and bronchial lavage. I will give the patient platelet transfusion prior to the procedure and proceed with a lavage of the lung for microbial diagnosis Consider broadening the antibiotic coverage and this will be discussed with infectious disease Modified oxygen flow to maintain a saturation above 90% Monitor hematologic profile. Add Legionella urine antigen COVID-19 testing by PCR was completed and was negative Galactomannan assay for fungal infections including Aspergillus Echocardiogram to be completed today Given a dose of Lasix 40 mg IV push 1 Bronchoscopy today and this will be done and the intensive care unit. Condition is critical. Case was discussed with the at the bedside.
[2021-07-11] MEDS: diphenhydrAMINE 50 MG/ML 1 ML VIAL IVP PRN ×2 (13:42→21:49)
--- NOTE | 2021-07-11 14:03 | P.PN ---
Subjective Progress Note Date: 07/11/21 Principal diagnosis: febrile neutropenia Patient with increased respiratory need overnight, resulting in high flow oxygenation and transfer to ICU. Plan for bronchoscopy today per pulmonary. , RN at bedside during discussion today with patient about current situation. Objective - Vital Signs Vital signs: Vital Signs Temp 100.3 F H 07/11/21 04:45 Pulse 95 07/11/21 08:32 Resp 18 07/11/21 07:00 BP 110/71 07/11/21 07:00 Pulse Ox 97 07/11/21 07:00 Intake & Output 07/10/21 07/11/21 07/11/21 18:59 06:59 18:59 Intake Total 1150 Output Total 4 750 Balance 1150 -4 -750 Weight 80.9 kg Intake: Intake, IV Titration 1150 Amount 0.9% NaCl with KCl 20 Meq 200 /l 1,000 ml @ 50 mls/hr IV .Q20H [facility] Rx#: [id number] Acyclovir Sodium 500 mg 100 In Sodium Chloride 0.9% 100 ml @ 100 mls/hr IVPB Q8H [facility] Rx#:[id number] Cefepime 2 gm In Sodium 100 Chloride 0.9% 100 ml @ 25 mls/hr IVPB Q8H [facility] Rx#: [id number] Magnesium Sulfate-D5w Pmx 200 1 gm In Dextrose/Water 1 100ml.bag @ 100 mls/hr IVPB Q1H [facility] Rx#: [id number] Potassium Chloride 20 meq 300 In Water For Injection 1 100ml.bag @ 50 mls/hr IVPB Q4HR [facility] Rx#: [id number] Vancomycin 1,500 mg In 250 Sodium Chloride 0.9% 250 ml @ 125 mls/hr IVPB Q8H [facility] Rx#:[id number] Output: Urine 750 Urine/Stool Mix 2 Emesis 2 Other: Voiding Method Toilet # Voids 2 # Bowel Movements 2 - Exam - Constitutional General appearance: Present: average body habitus, cooperative, no acute distress - EENT Eyes: Present: anicteric sclerae, EOMI ENT: Present: hearing grossly normal, normal oropharynx - Respiratory Respiratory:Diminished and bilateral wheezes present. High Flow Oxygen and increased respiratory effort. - Cardiovascular Rhythm: Tachy Heart sounds: normal: S1, S2 Abnormal Heart Sounds: Absent: systolic murmur, diastolic murmur, rub, S3 Gallop, S4 Gallop, click, other - Peripheral edema leg Peripheral Edema: bilateral: None - Gastrointestinal General gastrointestinal: Present: normal bowel sounds, soft - Integumentary Integumentary: Present: normal turgor, pale, areas of eccymosis on forehead and arms, lower extremity RLE petechaei is darker and pronouced today. Also petechaei rash has extended up to thighs - Neurologic Neurologic: Present: CNII-XII intact - Musculoskeletal Musculoskeletal: Present: strength equal bilaterally - Psychiatric Psychiatric: Present: A&O x's 3, appropriate affect, intact judgment & insigh - Labs CBC & Chem 7: 07/11/21 04:41 07/11/21 04:41 Labs: Abnormal Lab Results - Last 24 Hours (Table) 07/10/21 07/11/21 07/11/21 Range/Units 18:46 04:41 04:41 WBC (3.8-10.6) k/uL RBC (3.80-5.40) m/uL Hgb (11.4-16.0) gm/dL Hct (34.0-46.0) % Plt Count (150-450) k/uL PT 13.4 H (9.0-12.0) sec INR 1.3 H (<1.2) Glucose 152 H 158 H (74-99) mg/dL POC Glucose (mg/dL) (75-99) mg/dL Uric Acid 2.8 L (3.7-7.4) mg/dL Calcium 8.1 L 8.1 L (8.4-10.2) mg/dL AST 42 H (14-36) U/L Total Protein 5.6 L (6.3-8.2) g/dL Albumin 2.7 L (3.5-5.0) g/dL 07/11/21 07/11/21 Range/Units 04:41 06:21 WBC 0.3 L* (3.8-10.6) k/uL RBC 2.60 L (3.80-5.40) m/uL Hgb 8.0 L (11.4-16.0) gm/dL Hct 23.3 L (34.0-46.0) % Plt Count 10 L* (150-450) k/uL PT (9.0-12.0) sec INR (<1.2) Glucose (74-99) mg/dL POC Glucose (mg/dL) 159 H (75-99) mg/dL Uric Acid (3.7-7.4) mg/dL Calcium (8.4-10.2) mg/dL AST (14-36) U/L Total Protein (6.3-8.2) g/dL Albumin (3.5-5.0) g/dL Microbiology - Last 24 Hours (Table) 07/10/21 19:00 Urine Culture - Preliminary Urine,Voided 07/08/21 16:00 Blood Culture - Preliminary Blood No Growth after 48 hours 07/09/21 13:00 Blood Culture - Preliminary Blood No Growth after 24 hours 07/10/21 05:52 Stool Culture - Preliminary Stool 07/09/21 05:00 Gram Stain - Preliminary Sputum Sputum Culture - Preliminary 07/07/21 09:01 Blood Culture - Preliminary Blood No Growth after 72 hours 07/07/21 09:01 Blood Culture - Preliminary Blood No Growth after 72 hours Assessment and Plan (1) Neutropenic fever Current Visit: Yes Status: Acute Code(s): D70.9 - NEUTROPENIA, UNSPECIFIED; R50.81 - FEVER PRESENTING WITH CONDITIONS CLASSIFIED ELSEWHERE SNOMED Code(s): 150993391 (2) AML (acute myeloid leukemia) Current Visit: No Status: Acute Priority: High Code(s): C92.00 - ACUTE MYELOBLASTIC LEUKEMIA, NOT HAVING ACHIEVED REMISSION SNOMED Code(s): 40093818 (3) Anemia Current Visit: No Status: Acute Priority: High Code(s): D64.9 - ANEMIA, UNSPECIFIED SNOMED Code(s): 017191415 (4) Thrombocytopenia Current Visit: No Status: Acute Priority: High Code(s): D69.6 - THROMBOCYTOPENIA, UNSPECIFIED SNOMED Code(s): 259605857 (5) Hypokalemia Current Visit: Yes Status: Acute Code(s): E87.6 - HYPOKALEMIA SNOMED Code(s): 64926772 (6) Hypomagnesemia Current Visit: Yes Status: Acute Code(s): E83.42 - HYPOMAGNESEMIA SNOMED Code(s): 178528187 (7) Hypophosphatemia Current Visit: Yes Status: Acute Code(s): E83.39 - OTHER DISORDERS OF PHOSPHORUS METABOLISM SNOMED Code(s): 9192279 (8) Hypocalcemia Current Visit: Yes Status: Acute Code(s): E83.51 - HYPOCALCEMIA SNOMED Code(s): 2459512 (9) Acute respiratory insufficiency Current Visit: Yes Status: Acute Code(s): R06.89 - OTHER ABNORMALITIES OF BREATHING SNOMED Code(s): 126392777 (10) Hospital-acquired pneumonia Current Visit: Yes Status: Acute Code(s): J18.9 - PNEUMONIA, UNSPECIFIED ORGANISM; Y95 - NOSOCOMIAL CONDITION SNOMED Code(s): 321109780 (11) Hypotension Current Visit: Yes Status: Acute Code(s): I95.9 - HYPOTENSION, UNSPECIFIED SNOMED Code(s): 35600417 (12) Sepsis Current Visit: Yes Status: Acute Code(s): A41.9 - SEPSIS, UNSPECIFIED ORGANISM SNOMED Code(s): 22461139 (13) Respiratory failure Current Visit: Yes Status: Acute Code(s): J96.90 - RESPIRATORY FAILURE, U NSP, UNSP W HYPOXIA OR HYPERCAPNIA SNOMED Code(s): 374281971 (14) Sepsis Current Visit: No Status: Acute Priority: High Code(s): A41.9 - SEPSIS, UNSPECIFIED ORGANISM SNOMED Code(s): 75745910 Plan: Assessment and Recommendations: Febrile Neutropenia: - T Max 102.4.07/10/21 - Broad Spectrum ABX, AntiFungal, Anti VIRAL - Discussed with Dr. Marcano and ashlee add vancomycin back - Premedicate prior with benadryl - ID Following - COmplicated with possible pneumonia, pulmonary asked to follow - Prophylaxic at discharge due to expected prolonged neutropenia Acute Respiratory Failure: - In the care of ICU and receiving HI-FLOW oxygen 9Liters - Transferred on 07/11/21 - Bronchoscopy today Septic Shock: - Under care of ICU - Should recover with aggressive support care and when counts recover, expected within the next 3-7 days AML: - Started on Rydapt 50mg po BID x14 days. Started on 07/03/21 - Plan to see after discharge - Aggressive and Proactive supportive care and electrolyte replacement Increased Respiratory Effort: - Patient and concerned with increased respiratory effort and new complaint of chest Diarrhea: - Questran added and recheck stool studies - Stool studies negative, antidiarrheals ok - No abdominal rigidity or tenderness on exam, ok to continue PO intake to toleration Hypokalemia:Improved - Supplemented - TMS monitoring. - Added to gentle hydration Other electrolyte deficiencies: - Supp prn PLAN: - Continue aggressive supportive care - Transfusion IRRADIATED PRBC <7, PLatelets <10K. - Should see recovery of counts and overall improvements over the next 3-7 days: in the interim continue aggressive supportive care - If intubation is needed during time, recommended as treatment of AML is aggressive and curative - Bronchoscopy today per Pulmonary - Blood, Urine, Sputum cultures negative to date Long discussion and emotional support given to patient and . She is worried, her son is getting in 4 weeks. Physician Attest: I have completed the full history and physical and agree with above dictation, dictated as a scribe
[2021-07-11] MEDS ORDERED: LIDOCAINE 1% INJ 10MG/ML (20 ML MDV) ONE (14:15)
[2021-07-11] MEDS ORDERED: PROPOFOL 10 MG/ML 20 ML VIAL IV ONE (14:15)
[2021-07-11] MEDS ORDERED: IV FLUID CONTINUATION 1,000 ML IV ONE (14:21)
[2021-07-11] MEDS ORDERED: IV FLUID CONTINUATION 500 ML IV ONE (14:28)
[2021-07-11] MEDS ORDERED: LIDOCAINE 2% INJ 20 MG/ML INTRATRACH ONE (14:42)
--- NOTE | 2021-07-11 14:54 | P.PCN ---
Date of Procedure: 07/11/21 Preoperative Diagnosis: Bilateral pneumonia, rule out opportunistic infections, history of AML with pancytopenia Postoperative Diagnosis: Bilateral pneumonia, rule out opportunistic infections, history of AML with pancytopenia Procedure(s) Performed: Flex bronchoscopy, bronchial alveolar lavage of the right middle lobe Anesthesia: MAC Surgeon: Felix Sanabria Estimated Blood Loss (ml): 0 Pathology: other Condition: critical Disposition: ICU Operative Findings: This is a procedure that was done in the intensive care unit. The patient has AML with pancytopenia post-induction chemotherapy. The patient has developed hypoxic respiratory failure and the patient was on 9 L of oxygen by nasal cannula to maintain saturation above 90%. Chest x-ray was showing worsening bilateral pulmonary infiltrates and for that reason a bronchoscopy with a bronchioloalveolar lavage was indicated to establish microbial diagnoses This procedure was done in the intensive care unit. The patient was sedated by [employer] and anesthesia, Dr. Cintron, at the bedside. The patient was given propo fol for sedation. The flexible bronchoscope was inserted to the left and it was advanced into the upper airway. Examination of the posterior oropharynx, larynx, vallecula, epiglottis, and vocal cords was done and all of his upper airway structures were within normal limits. Following that, a total of 2 mL of 1% lidocaine was applied to the vocal cords and the bronchoscope was advanced into the upper trachea. Examination of the trachealbronchial tree was done. The visualized airways included enter trachea, olivia, bilateral mainstem bronchi, right upper lobe bronchus, bronchus intermedius, right middle lobe bronchus and right lower lobe bronchus, left upper lobe bronchus, left lower lobe bronchitis in the lingular segment. All of these days were patent andthe mucosa was slightly erythematous and inflamed probably related to underlying pneumonia. The bronchoscope was wedged into the lateral segment of the right middle lobe. The bronchioloalveolar lavage was done with a total of 120 mL of fluid was infused and around 25 mL was aspirated back and asked that was nonbloody. Therapeutic airway suctioning was done. The residual airway secretions were suctioned out and the patient tolerated the procedure well without any significant desaturation. Bronchoscope was removed and the patient was kept on 100% nonrebreather facemask. The samples will be sent for microbial cultures and analysis.
[2021-07-11] MEDS ORDERED: ACETAMINOPHEN IV (For NPO) 1,000 MG in EMPTY BAG 1 BAG IVPB STA (15:53)
--- NOTE | 2021-07-11 16:22 | P.PN ---
Subjective Progress Note Date: 07/11/21 (delayed charting seen at 1030) Principal diagnosis: fevers Patient is a 61-year-old female recently diagnosed with AML who started induction chemotherapy here during admission from 06/19 through 07/02. Repeat presented with neutropenic fevers. Subsequently diagnosed with pneumonia. Pulmonary and ID following. Patient seen and examined at bedside. She has some shortness of breath and a nonproductive cough. She states things still did not taste normal. She denies any nausea or vomiting. She denies any diarrhea today and skipped her cholestyramine as it is somewhat improved. She is still not eating and drinking well due to the metallic taste in her mouth. General: Ill-appearing, no distress, appears at stated age Derm: warm, dry Head: atraumatic, normocephalic, symmetric Eyes: EOMI, no lid lag, anicteric sclera Mouth: no lip lesion, mucus membranes moist Cardiovascular: S1S2 reg, no murmur, positive posterior tibial pulse bilateral, Lungs: Coarse breath sounds bilateral, no rhonchi, no rales , no accessory muscle use Abdominal: soft, nontender to palpation, no guarding, no appreciable organomegaly Ext: no gross muscle atrophy, no edema, no contractures Neuro: CN II-XI grossly intact, no focal neuro deficits Psych: Alert, oriented, appropriate affect Neutropenic fevers Acute myelogenous leukemia Pancytopenia, chemo induced Pneumonia Acute hypoxic respiratory failure Diarrhea Sepsis without septic shock -Covid negative, legionella urine antigen negative, Aspergillus IgE negative - all culutres negative to date. - bronch today - ID, Pulm, Heme/pmc recs appreaciate - fungatile screen - Continue with vanco, cefepime, diflucan, and acyclovir - monitor fever profile - Fecal lactoferrin +, C diff negative, stool cultures pending - cholestyramine - echo pending - s/p units pRBC and 5 units Plts - follow CBC and transfuse as indicated Episode of tremors - EEG negative - CT head negative - neurology recs Hypokalemia, resolved Hypomagnesemia, resolved Hypophosphatemia, resolved Hypocalcemia , resolved Objective - Vital Signs Vital signs: Vital Signs Temp 102.7 F H 07/11/21 15:30 Pulse 110 H 07/11/21 15:30 Resp 37 H 07/11/21 15:30 BP 109/59 07/11/21 15:30 Pulse Ox 89 L 07/11/21 15:30 Intake & Output 07/10/21 07/11/21 07/11/21 18:59 06:59 18:59 Intake Total 1150 737 Output Total 4 750 Balance 1150 -4 -13 Weight 80.9 kg Intake: IV 450 0.9% NaCl with KCl 20 Meq 250 /l 1,000 ml @ 50 mls/hr IV .Q20H [facility] Rx#: [id number] Cefepime 2 gm In Sodium 100 Chloride 0.9% 100 ml @ 25 mls/hr IVPB Q8H [facility] Rx#: [id number] Fluconazole in NaCl,Iso- 50 Osm 100 mg In Saline 1 50ml.bag @ 50 mls/hr IVPB DAILY [facility] Rx#:[id number] Intake, IV Titration 1150 Amount 0.9% NaCl with KCl 20 Meq 200 /l 1,000 ml @ 50 mls/hr IV .Q20H [facility] Rx#: [id number] Acyclovir Sodium 500 mg 100 In Sodium Chloride 0.9% 100 ml @ 100 mls/hr IVPB Q8H [facility] Rx#:[id number] Cefepime 2 gm In Sodium 100 Chloride 0.9% 100 ml @ 25 mls/hr IVPB Q8H [facility] Rx#: [id number] Magnesium Sulfate-D5w Pmx 200 1 gm In Dextrose/Water 1 100ml.bag @ 100 mls/hr IVPB Q1H [facility] Rx#: [id number] Potassium Chloride 20 meq 300 In Water For Injection 1 100ml.bag @ 50 mls/hr IVPB Q4HR [facility] Rx#: [id number] Vancomycin 1,500 mg In 250 Sodium Chloride 0.9% 250 ml @ 125 mls/hr IVPB Q8H [facility] Rx#:[id number] Blood Product 287 Platelet Pheresis Pas 287 Psoralen Unit [id number] Output: Urine 750 Urine/Stool Mix 2 Emesis 2 Other: Voiding Method Toilet Bedside Commode # Voids 2 1 # Bowel Movements 2 - Labs CBC & Chem 7: 07/11/21 04:41 07/11/21 04:41 Labs: Abnormal Lab Results - Last 24 Hours (Table) 07/10/21 07/10/21 07/11/21 Range/Units 05:52 18:46 04:41 WBC (3.8-10.6) k/uL RBC (3.80-5.40) m/uL Hgb (11.4-16.0) gm/dL Hct (34.0-46.0) % Plt Count (150-450) k/uL PT (9.0-12.0) sec INR (<1.2) Glucose 152 H 158 H (74-99) mg/dL POC Glucose (mg/dL) (75-99) mg/dL Uric Acid 2.8 L (3.7-7.4) mg/dL Calcium 8.1 L 8.1 L (8.4-10.2) mg/dL AST 42 H (14-36) U/L Total Protein 5.6 L (6.3-8.2) g/dL Albumin 2.7 L (3.5-5.0) g/dL Stool Lactoferrin POSITIVE A (NEGATIVE) 07/11/21 07/11/21 07/11/21 Range/Units 04:41 04:41 06:21 WBC 0.3 L* (3.8-10.6) k/uL RBC 2.60 L (3.80-5.40) m/uL Hgb 8.0 L (11.4-16.0) gm/dL Hct 23.3 L (34.0-46.0) % Plt Count 10 L* (150-450) k/uL PT 13.4 H (9.0-12.0) sec INR 1.3 H (<1.2) Glucose (74-99) mg/dL POC Glucose (mg/dL) 159 H (75-99) mg/dL Uric Acid (3.7-7.4) mg/dL Calcium (8.4-10.2) mg/dL AST (14-36) U/L Total Protein (6.3-8.2) g/dL Albumin (3.5-5.0) g/dL Stool Lactoferrin (NEGATIVE) Microbiology - Last 24 Hours (Table) 07/09/21 13:00 Blood Culture - Preliminary Blood No Growth after 48 hours 07/07/21 09:01 Blood Culture - Preliminary Blood No Growth after 96 hours 07/07/21 09:01 Blood Culture - Preliminary Blood No Growth after 96 hours 07/10/21 19:00 Urine Culture - Preliminary Urine,Voided 07/08/21 16:00 Blood Culture - Preliminary Blood No Growth after 48 hours 07/10/21 05:52 Stool Culture - Preliminary Stool 07/09/21 05:00 Gram Stain - Preliminary Sputum Sputum Culture - Preliminary
[2021-07-11 17:09] LABS: MCH 30.8 pg (25.0-35.0); MCHC 34.7 g/dL (31.0-37.0); MCV 88.8 fL (80.0-100.0); Mean Platelet Volume 9.2; RDW 14.4 % (11.5-15.5)
[2021-07-11 17:11] LABS: HGB 6.8 gm/dL (11.4-16.0)
[2021-07-11 17:12] LABS: HCT 19.6 % (34.0-46.0); Platelet Count 11 k/uL (150-450); WBC 0.1 k/uL (3.8-10.6)
[2021-07-11 17:30] LABS: Calcium 7.8 mg/dL (8.4-10.2); Magnesium 1.7 mg/dL (1.6-2.3); Phosphorus 3.7 mg/dL (2.5-4.5); Potassium 3.1 mmol/L (3.5-5.1)
[2021-07-11] MEDS: ZINC SULFATE 220 MG CAP PO SCH (17:33)
[2021-07-11] MEDS: LEVOFLOXACIN 750MG-D5W PMX 750 MG in DEXTROSE/WATER 1 150ML.BAG IVPB SCH (17:33)
--- NOTE | 2021-07-11 18:30 | PN ---
PROGRESS NOTE DATE OF SERVICE: 07/11/2021 REASON FOR FOLLOWUP: Febrile neutropenia and pneumonia. RECENT HISTORY: Patient did spike a fever again this afternoon. The patient was transferred to the ICU because of worsening of her respiratory status. Patient is hemodynamically stable. The patient denies having any chest pain. She did have a cough with occasional sputum. No vomiting. No abdominal pain and no worsening diarrhea. PHYSICAL EXAMINATION: Blood pressure is 109/59, pulse of 101, temperature 102.7. She is 99% on 10 L high- flow oxygen. General description is a middle-aged female lying in bed in no distress. Respiratory system: Unlabored breathing, coarse breath sounds at the base, no wheeze. Heart S1, S2. Regular rate and rhythm. Abdomen soft, no tenderness. LABS: Hemoglobin 6.1, white count 0.1, BUN of 12, creatinine 1.06. Urine for Legionella is negative. DIAGNOSTIC IMPRESSION AND PLAN: Patient with febrile neutropenia with evidence of pneumonia. The patient has been neutropenic for more than 10 days now. Voriconazole has been added to cover for possible aspiration. Patient covered with cefepime and vanco. Levaquin has been added ( ). MMODL / IJN: [id number] /
[2021-07-11] MEDS ORDERED: Potassium Replacement Protocol 1 EACH MISC MISCELLANE PRN (18:59)
[2021-07-11] MEDS ORDERED: SODIUM CHLORIDE 0.9% 1,000 ML IV ONE (19:00)
[2021-07-11] MEDS ORDERED: Magnesium Replacement Protocol 1 EACH MISC MISCELLANE PRN (19:04)
[2021-07-11] MEDS: POTASSIUM CHLORIDE 20 MEQ in WATER FOR INJECTION 1 100ML.BAG IVPB SCH (19:06)
[2021-07-11] MEDS: VORICONAZOLE 500 MG in SODIUM CHLORIDE 0.9% 250 ML IVPB SCH (22:09)
[2021-07-11] MEDS: MAGNESIUM SULFATE-D5W PMX 1 GM in DEXTROSE/WATER 1 100ML.BAG IVPB SCH ×2 (22:09→23:11)
[2021-07-11 22:39] LABS: HCT 20.5 % (34.0-46.0); MCH 30.7 pg (25.0-35.0); MCHC 34.4 g/dL (31.0-37.0); MCV 89.4 fL (80.0-100.0); RBC 2.29 m/uL (3.80-5.40); RDW 14.6 % (11.5-15.5)
[2021-07-11 22:42] LABS: HGB 7.1 gm/dL (11.4-16.0); Platelet Count 7 k/uL (150-450)
[2021-07-11 23:01] LABS: WBC 0.1 k/uL (3.8-10.6)
[2021-07-12] MEDS: CEFEPIME 2 GM in SODIUM CHLORIDE 0.9% 100 ML IVPB SCH ×3 (01:23→16:07)
[2021-07-12] MEDS: POTASSIUM CHLORIDE 20 MEQ in WATER FOR INJECTION 1 100ML.BAG IVPB SCH (01:24)
[2021-07-12] MEDS: LORazepam 2 MG/ML INJ IV PRN ×2 (02:17→22:27)
[2021-07-12] MEDS: diphenhydrAMINE 50 MG/ML 1 ML VIAL IVP SCH (03:01)
[2021-07-12] MEDS: diphenhydrAMINE 50 MG/ML 1 ML VIAL IVP PRN (04:57)
[2021-07-12] MEDS: VANCOMYCIN 1,500 MG in SODIUM CHLORIDE 0.9% 250 ML IVPB SCH (04:58)
[2021-07-12] MEDS: ACYCLOVIR SODIUM 500 MG in SODIUM CHLORIDE 0.9% 100 ML IVPB SCH ×3 (04:58→23:42)
[2021-07-12 05:24] LABS: HCT 22.2 % (34.0-46.0); HGB 7.6 gm/dL (11.4-16.0); MCH 30.6 pg (25.0-35.0); MCHC 34.3 g/dL (31.0-37.0); MCV 89.2 fL (80.0-100.0); Mean Platelet Volume 10.1; RBC 2.49 m/uL (3.80-5.40); RDW 14.8 % (11.5-15.5)
[2021-07-12 05:38] LABS: INR 1.4 (<1.2)
[2021-07-12 05:40] LABS: Platelet Count 8 k/uL (150-450); WBC 0.1 k/uL (3.8-10.6)
[2021-07-12 05:56] LABS: Albumin 2.4 g/dL (3.5-5.0); Calcium 7.7 mg/dL (8.4-10.2); Magnesium 2.5 mg/dL (1.6-2.3); Phosphorus 2.8 mg/dL (2.5-4.5); Potassium 4.2 mmol/L (3.5-5.1); Total Bilirubin 0.3 mg/dL (0.2-1.3); Total Protein 5.2 g/dL (6.3-8.2)
[2021-07-12 06:52] LABS: Anisocytosis (M) Present
--- NOTE | 2021-07-12 06:55 | XR ---
EXAMINATION TYPE: XR chest 1V portable DATE OF EXAM: 07/12/2021 HISTORY: Shortness of breath. COMPARISON: 07/11/2021 TECHNIQUE: Single view of the chest is submitted. FINDINGS: Demonstrated are scattered senescent parenchymal change. Progressive patchy airspace infiltrates throughout both lung garrido right greater than left. Correlat e for pneumonia. The heart is stable. Hilar and mediastinal structures are within normal limits. Degenerative changes are seen of the dorsal spine. IMPRESSION: 1. Progressive patchy airspace infiltrates throughout both lung garrido right greater than left. Fernanda elate for pneumonia.
[2021-07-12] MEDS: ALBUTEROL NEBULIZED 2.5 MG/3 ML INHALATION SCH ×4 (07:34→20:11)
[2021-07-12] MEDS ORDERED: VANCOMYCIN IV PER PHARMACY 1 EACH MISC MISCELLANE PRN (07:36)
[2021-07-12] MEDS: VORICONAZOLE 500 MG in SODIUM CHLORIDE 0.9% 250 ML IVPB SCH ×2 (08:04→22:00)
--- NOTE | 2021-07-12 10:16 | P.PN ---
Subjective Progress Note Date: 07/12/21 On today's evaluation of 07/11/2021, the patient is clinically worse and the patient got transferred to the intensive care unit as the patient became more short of breath. Yesterday she was on 2 L of oxygen by nasal cannula and by around 4 AM this morning the patient became more short of breath and hypoxic and she had to be placed on 9 L of oxygen by nasal cannula. Her current pulse ox is 91%. She is still spiking fever. Her chest x-ray shows worsening of the bilateral pulmonary infiltrates consistent with pneumonia. She continues to be pancytopenic with a white cell count of 0.3 and hemoglobin of 8 with a platelet count of 10. Blood cultures of been negative. Sputum cultures been negative. The COVID-19 testing was rechecked and was negative. The patient has also Legionella urine antigen pending. The plan is to proceed with a bronchoscopy and the bronchioloalveolar lavage to establish microbial diagnoses with a high suspicion for an underlying which is thick infection. Meanwhile, the patient is being seen by infectious disease and she is still covered with same antibiotic coverage. She is on combination of cefepime and vancomycin. She is also on acyclovir and Diflucan. Case was discussed with the . 07/12/2021, I'm seeing this patient for a follow-up. The patient's condition has decompensated since yesterday and the patient has become slightly more short of breath especially post bronchoscopy. In oxygen requirements went up. She was placed on on the percent on a beta facemasks and currently she is on a BiPAP at a pressure of 12/6 cm of water and FiO2 of 50%. The chest x-ray showing worsening in the bilateral pulmonary infiltrates especially on the rise. Results of the bronchoscopy are still pending for now. No active microbial growth. Legionella urine antigen was also negative. The patient wbc is at 0.1 from this morning, and further antibiotic modification has been done. Voriconazole was added. Diflucan was discontinued. The patient is also on a combination of cefepime, vancomycin and Levaquin. ID is on the case for now. Vancomycin trough level was at 33.2. She has been afebrile over the past 12 hours. T-max from this morning was 99.7, and at around 4 AM she spiked a low- grade fever of 1.2. She is a bit lethargic and awake. She symptoms with the BiPAP mask. We'll try to transition her to a high flow oxygen if possible. H emodynamically stable on no pressors. Results of the bronchioloalveolar lavage obtained yesterday are still pending. Platelet count is at 8. No hemoptysis. Objective - Vital Signs Vital signs: Vital Signs Temp 99.7 F H 07/12/21 08:00 Pulse 106 H 07/12/21 09:00 Resp 33 H 07/12/21 09:00 BP 96/66 07/12/21 09:00 Pulse Ox 94 L 07/12/21 09:00 Intake & Output 07/11/21 07/12/21 07/12/21 18:59 06:59 18:59 Intake Total 1337 2110 350 Output Total 750 250 Balance 587 2110 100 Weight 93.9 kg Intake: IV 550 1650 350 0.9% NaCl with KCl 20 Meq 250 /l 1,000 ml @ 50 mls/hr IV .Q20H [facility] Rx#: [id number] ACETAMINOPHEN IV (For NPO 100 ) 1,000 mg In Empty Bag 1 bag @ 400 mls/hr IVPB ONCE [facility] Rx#:[id number] Cefepime 2 gm In Sodium 200 100 100 Chloride 0.9% 100 ml @ 25 mls/hr IVPB Q8H [facility] Rx#: [id number] Fluconazole in NaCl,Iso- 50 Osm 100 mg In Saline 1 50ml.bag @ 50 mls/hr IVPB DAILY [facility] Rx#:[id number] Levofloxacin 750Mg-D5w 150 Pmx 750 mg In Dextrose/ Water 1 150ml.bag @ 100 mls/hr IVPB Q24H [facility] Rx#: [id number] Potassium Chloride 20 meq 300 In Water For Injection 1 100ml.bag @ 50 mls/hr IVPB Q2H [facility] Rx#: [id number] Sodium Chloride 0.9% 1, 1000 000 ml @ 999 mls/hr IV . Q1H1M [facility] Rx#:[id number] Voriconazole 500 mg In 250 Sodium Chloride 0.9% 250 ml @ 125 mls/hr IVPB Q12HR [facility] Rx#:[id number] Intake, IV Titration 500 Amount Acyclovir Sodium 500 mg 100 In Sodium Chloride 0.9% 100 ml @ 100 mls/hr IVPB Q8H [facility] Rx#:[id number] Levofloxacin 750Mg-D5w 150 Pmx 750 mg In Dextrose/ Water 1 150ml.bag @ 100 mls/hr IVPB Q24H [facility] Rx#: [id number] Vancomycin 1,500 mg In 250 Sodium Chloride 0.9% 250 ml @ 125 mls/hr IVPB Q8H [facility] Rx#:[id number] Blood Product 287 310 Platelet Pheresis Pas 287 Psoralen Unit [id number] Rc Irr As1 Unit 310 [id number] Other 150 Rc Irr As1 Unit 150 [id number] Output: Urine 750 250 Other: Voiding Method Bedside Commode Bedside Commode # Voids 1 0 1 - Exam Gen. appearance the patient is mild degree of respirator distress currently on a BiPAP at a pressure of 12/6 cm of water with an FiO2 of 50%. Not using excessive muscle breathing. Head exam was generally normal. There was no scleral icterus or corneal arcus. Mucous membranes were moist. Neck was supple and without jugular venous distension, thyromegaly, or carotid bruits. Carotids were easily palpable bilaterally. There was no adenopathy. Lungs sounds are diminished otherwise clear. Breath sounds are equal and symmetrical bilaterally. Cardiac exam revealed the PMI to be normally situated and sized. The rhythm was regular and no extrasystoles were noted during several minutes of auscultation. The first and second heart sounds were normal and physiologic splitting of the second heart sound was noted. There were no murmurs, rubs, clicks, or gallops. Abdominal exam revealed normal bowel sounds. The abdomen was soft, non-tender, and without masses, organomegaly, or appreciable enlargement of the abdominal aorta. Examination of the extremities revealed easily palpable radial, femoral and pedal pulses. There was no cyanosis, clubbing or edema. Examination of the skin revealed no evidence of significant rashes, suspicious appearing nevi or other concerning lesions. The patient has petechia in the lower extremities bilaterally related to underlying thrombocytopenia. Few areas of bruising, not extensive. Neurologically, the patient is awake and alert and the patient does not have any focal neurological deficit. Cranial nerves are essentially intact. - Labs CBC & Chem 7: 07/12/21 04:54 07/12/21 04:54 Labs: Abnormal Lab Results - Last 24 Hours (Table) 07/10/21 07/11/2107/11/21 Range/Units 05:52 16:04 16:04 WBC 0.1 L* (3.8-10.6) k/uL RBC 2.20 L (3.80-5.40) m/uL Hgb 6.8 L* (11.4-16.0) gm/dL Hct 19.6 L* (34.0-46.0) % Plt Count 11 L* (150-450) k/uL PT (9.0-12.0) sec INR (<1.2) Potassium 3.1 L (3.5-5.1) mmol/L Chloride (98-107) mmol/L Creatinine 1.06 H (0.52-1.04) mg/dL Glucose 150 H (74-99) mg/dL Calcium 7.8 L (8.4-10.2) mg/dL Magnesium (1.6-2.3) mg/dL AST (14-36) U/L ALT (4-34) U/L Lactate Dehydrogenase (313-618) U/L Total Protein (6.3-8.2) g/dL Albumin (3.5-5.0) g/dL Stool Lactoferrin POSITIVE A (NEGATIVE) Vancomycin Trough ug/mL Crossmatch 07/11/21 07/11/21 07/12/21 Range/Units 17:36 22:20 04:54 WBC 0.1 L* (3.8-10.6) k/uL RBC 2.29 L (3.80-5.40) m/uL Hgb 7.1 L (11.4-16.0) gm/dL Hct 20.5 L (34.0-46.0) % Plt Count 7 L* (150-450) k/uL PT (9.0-12.0) sec INR (<1.2) Potassium (3.5-5.1) mmol/L Chloride (98-107) mmol/L Creatinine (0.52-1.04) mg/dL Glucose (74-99) mg/dL Calcium (8.4-10.2) mg/dL Magnesium (1.6-2.3) mg/dL AST (14-36) U/L ALT (4-34) U/L Lactate Dehydrogenase (313-618) U/L Total Protein (6.3-8.2) g/dL Albumin (3.5-5.0) g/dL Stool Lactoferrin (NEGATIVE) Vancomycin Trough 33.2 H* ug/mL Crossmatch See Detail 07/12/21 07/12/21 07/12/21 Range/Units 04:54 04:54 04:54 WBC 0.1 L* (3.8-10.6) k/uL RBC 2.49 L (3.80-5.40) m/uL Hgb 7.6 L (11.4-16.0) gm/dL Hct 22.2 L (34.0-46.0) % Plt Count 8 L* (150-450) k/uL PT 14.0 H (9.0-12.0) sec INR 1.4 H (<1.2) Potassium (3.5-5.1) mmol/L Chloride 109 H (98-107) mmol/L Creatinine (0.52-1.04) mg/dL Glucose 140 H (74-99) mg/dL Calcium 7.7 L (8.4-10.2) mg/dL Magnesium 2.5 H (1.6-2.3) mg/dL AST 46 H (14-36) U/L ALT 41 H (4-34) U/L Lactate Dehydrogenase 636 H (313-618) U/L Total Protein 5.2 L (6.3-8.2) g/dL Albumin 2.4 L (3.5-5.0) g/dL Stool Lactoferrin (NEGATIVE) Vancomycin Trough ug/mL Crossmatch Microbiology - Last 24 Hours (Table) 07/11/21 15:00 Bronchial Washings Culture - Preliminary Bronchial Washings - Random 07/11/21 15:00 Acid Fast Bacilli Culture - Preliminary Bronchial Washings - Random 07/11/21 15:00 Fungal Culture - Preliminary Bronchial Washings - Random 07/11/21 15:00 Legionella Culture - Preliminary Bronchial Washings - Random 07/10/21 19:00 Urine Culture - Final Urine,Voided 07/08/21 16:00 Blood Culture - Preliminary Blood No Growth after 72 hours 07/09/21 13:00 Blood Culture - Preliminary Blood No Growth after 48 hours 07/07/21 09:01 Blood Culture - Preliminary Blood No Growth after 96 hours 07/07/21 09:01 Blood Culture - Preliminary Blood No Growth after 96 hours Assessment and Plan Plan: 1acute bilateral pneumonia with coarse interstitial pulmonary infiltrates, consider opportunistic infections especially with her underlying immunosuppression. Patient has developed worsening bilateral pulmonary infiltrates and the patient is currently BiPAP dependent. Antibiotic coverage is included a combination of cefepime, Levaquin, vancomycin, acyclovir and voriconazole. Hemodynamically stable. Currently BiPAP dependent. White cell count remains low at 0.1. Condition remains critical. 2 acute hypoxic respiratory failure and the rate to above with worsening pneumonia 3 shortness of breath secondary to but not limited to above mentioned pneumonia. 4 acute myeloid leukemia post induction chemotherapy 5 pancytopenia 6 episodic fever currently under investigation. Cultures are negative and the p atient is covered with broad-spectrum antibiotics. The patient is a PICC line in the right upper extremity 7 electrolytes disturbance, being managed and replaced 8 diarrhea, stool for C. diff has been negative, still having some diarrhea Plan Keep BiPAP for now and consider a trial of high flow oxygen at a later stage Keep same antibiotic coverage Awaiting results of the bronchioloalveolar lavage Platelet transfusion today and monitor the hematologic profile Monitor hematologic profile. Echocardiogram to be completed awaiting the results of the echocardiogram IV fluids at 75 mL an hour of maintenance Given a dose of Lasix 40 mg IV push 1 Condition is critical. Case was discussed with the at the bedside.
[2021-07-12] MEDS: PANTOPRAZOLE 40 MG TABLET PO SCH (10:48)
[2021-07-12] MEDS: ZINC SULFATE 220 MG CAP PO SCH (10:48)
[2021-07-12] MEDS: MIDOSTAURIN 25 MG PO SCH ×2 (10:48→22:16)
[2021-07-12] MEDS: PARoxetine 10 MG TAB PO SCH ×2 (10:48→16:11)
[2021-07-12] MEDS: SALT AND SODA MOUTHWASH 1,000 ML PO SCH ×4 (10:48→23:43)
[2021-07-12] MEDS: POTAS-SOD-PHOS 278-164-250 MG 1 EACH PACKET PO SCH ×3 (10:48→23:43)
[2021-07-12] MEDS: CHOLESTYRAMINE (WITH SUGAR) 4 GM PACKET PO SCH ×2 (10:48→19:05)
[2021-07-12] MEDS: SODIUM CHLORIDE 0.9% 1,000 ML IV SCH (12:28)
--- NOTE | 2021-07-12 12:49 | P.PN ---
Subjective Progress Note Date: 07/12/21 Principal diagnosis: febrile neutropenia Patient seen this am, appeared a bit after we seen her. She was stable on Bipap. Still febrile. We will hold Rydapt at this time. Platelets are 8K, irradiated Platelets ordered. Objective - Vital Signs Vital signs: Vital Signs Temp 99.9 F H 07/12/21 12:00 Pulse 100 07/12/21 12:05 Resp 38 H 07/12/21 12:00 BP 98/69 07/12/21 12:00 Pulse Ox 99 07/12/21 12:00 Intake & Output 07/11/21 07/12/21 07/12/21 18:59 06:59 18:59 Intake Total 1337 2110 615 Output Total 750 250 Balance 587 2110 365 Weight 93.9 kg Intake: IV 550 1650 615 0.9 190 0.9% NaCl with KCl 20 Meq 250 /l 1,000 ml @ 50 mls/hr IV .Q20H [facility] Rx#: [id number] ACETAMINOPHEN IV (For NPO 100 ) 1,000 mg In Empty Bag 1 bag @ 400 mls/hr IVPB ONCE [facility] Rx#:[id number] Cefepime 2 gm In Sodium 200 100 100 Chloride 0.9% 100 ml @ 25 mls/hr IVPB Q8H [facility] Rx#: [id number] Fluconazole in NaCl,Iso- 50 Osm 100 mg In Saline 1 50ml.bag @ 50 mls/hr IVPB DAILY [facility] Rx#:[id number] Levofloxacin 750Mg-D5w 150 Pmx 750 mg In Dextrose/ Water 1 150ml.bag @ 100 mls/hr IVPB Q24H [facility] Rx#: [id number] Potassium Chloride 20 meq 300 In Water For Injection 1 100ml.bag @ 50 mls/hr IVPB Q2H [facility] Rx#: [id number] Sodium Chloride 0.9% 1, 75 000 ml @ 75 mls/hr IV . [id number] [facility] Rx#:[id number] Sodium Chloride 0.9% 1, 1000 000 ml @ 999 mls/hr IV . Q1H1M [facility] Rx#:[id number] Voriconazole 500 mg In 250 Sodium Chloride 0.9% 250 ml @ 125 mls/hr IVPB Q12HR [facility] Rx#:[id number] Intake, IV Titration 500 Amount Acyclovir Sodium 500 mg 100 In Sodium Chloride 0.9% 100 ml @ 100 mls/hr IVPB Q8H [facility] Rx#:[id number] Levofloxacin 750Mg-D5w 150 Pmx 750 mg In Dextrose/ Water 1 150ml.bag @ 100 mls/hr IVPB Q24H [facility] Rx#: [id number] Vancomycin 1,500 mg In 250 Sodium Chloride 0.9% 250 ml @ 125 mls/hr IVPB Q8H [facility] Rx#:[id number] Blood Product 287 310 Platelet Pheresis Pas 287 Psoralen Unit [id number] Rc Irr As1 Unit 310 [id number] Other 150 Rc Irr As1 Unit 150 [id number] Output: Urine 750 250 Other: Voiding Method Bedside Commode Bedside Commode Bedside Commode # Voids 1 0 1 - Exam - Constitutional General appearance: Present: average body habitus, cooperative, no acute distress - EENT Eyes: Present: anicteric sclerae, EOMI ENT: Present: hearing grossly normal, normal oropharynx - Respiratory Respiratory:Diminished and bilateral wheezes present. increased respiratory effort is improved on bipap. - Cardiovascular Rhythm: Tachy Heart sounds: normal: S1, S2 - Peripheral edema leg Peripheral Edema: bilateral: None - Gastrointestinal General gastrointestinal: Present: normal bowel sounds, soft - Integumentary Integumentary: Present: normal turgor, pale, areas of eccymosis on forehead and arms, lower extremity RLE petechaei\y. Also petechaei rash has extended up to thighs - Neurologic Neurologic: Present: CNII-XII intact - Musculoskeletal Musculoskeletal: Present: strength equal bilaterally - Psychiatric Psychiatric: Present: A&O x's 3, appropriate affect, intact judgment & insigh - Labs CBC & Chem 7: 07/12/21 04:54 07/12/21 04:54 Labs: Abnormal Lab Results - Last 24 Hours (Table) 07/10/21 07/11/21 07/11/21 Range/Units 05:52 16:04 16:04 WBC 0.1 L* (3.8-10.6) k/uL RBC 2.20 L (3.80-5.40) m/uL Hgb 6.8 L* (11.4-16.0) gm/dL Hct 19.6 L* (34.0-46.0) % Plt Count 11 L* (150-450) k/uL PT (9.0-12.0) sec INR (<1.2) Potassium 3.1 L (3.5-5.1) mmol/L Chloride (98-107) mmol/L Creatinine 1.06 H (0.52-1.04) mg/dL Glucose 150 H (74-99) mg/dL Calcium 7.8 L (8.4-10.2) mg/dL Magnesium (1.6-2.3) mg/dL AST (14-36) U/L ALT (4-34) U/L Lactate Dehydrogenase (313-618) U/L Total Protein (6.3-8.2) g/dL Albumin (3.5-5.0) g/dL Stool Lactoferrin POSITIVE A (NEGATIVE) Vancomycin Trough ug/mL Crossmatch 07/11/21 07/11/21 07/12/21 Range/Units 17:36 22:20 04:54 WBC 0.1 L* (3.8-10.6) k/uL RBC 2.29 L (3.80-5.40) m/uL Hgb 7.1 L (11.4-16.0) gm/dL Hct 20.5 L (34.0-46.0) % Plt Count 7 L* (150-450) k/uL PT (9.0-12.0) sec INR (<1.2) Potassium (3.5-5.1) mmol/L Chloride (98-107) mmol/L Creatinine (0.52-1.04) mg/dL Glucose (74-99) mg/dL Calcium (8.4-10.2) mg/dL Magnesium (1.6-2.3) mg/dL AST (14-36) U/L ALT (4-34) U/L Lactate Dehydrogenase (313-618) U/L Total Protein (6.3-8.2) g/dL Albumin (3.5-5.0) g/dL Stool Lactoferrin (NEGATIVE) Vancomycin Trough 33.2 H* ug/mL Crossmatch See Detail 07/12/21 07/12/21 07/12/21 Range/Units 04:54 04:54 04:54 WBC 0.1 L* (3.8-10.6) k/uL RBC 2.49 L (3.80-5.40) m/uL Hgb 7.6 L (11.4-16.0) gm/dL Hct 22.2 L (34.0-46.0) % Plt Count 8 L* (150-450) k/uL PT 14.0 H (9.0-12.0) sec INR 1.4 H (<1.2) Potassium (3.5-5.1) mmol/L Chloride 109 H (98-107) mmol/L Creatinine (0.52-1.04) mg/dL Glucose 140 H (74-99) mg/dL Calcium 7.7 L (8.4-10.2) mg/dL Magnesium 2.5 H (1.6-2.3) mg/dL AST 46 H (14-36) U/L ALT 41 H (4-34) U/L Lactate Dehydrogenase 636 H (313-618) U/L Total Protein 5.2 L (6.3-8.2) g/dL Albumin 2.4 L (3.5-5.0) g/dL Stool Lactoferrin (NEGATIVE) Vancomycin Trough ug/mL Crossmatch Microbiology - Last 24 Hours (Table) 07/07/21 09:01 Blood Culture - Preliminary Blood No Growth after 120 hours 07/07/21 09:01 Blood Culture - Preliminary Blood No Growth after 120 hours 07/09/21 05:00 Gram Stain - Final Sputum Sputum Culture - Final 07/11/21 15:00 Bronchial Washings Culture - Preliminary Bronchial Washings - Random 07/11/21 15:00 Acid Fast Bacilli Culture - Preliminary Bronchial Washings - Random 07/11/21 15:00 Fungal Culture - Preliminary Bronchial Washings - Random 07/11/21 15:00 Legionella Culture - Preliminary Bronchial Washings - Random 07/10/21 19:00 Urine Culture - Final Urine,Voided 07/08/21 16:00 Blood Culture - Preliminary Blood No Growth after 72 hours 07/09/21 13:00 Blood Culture - Preliminary Blood No Growth after 48 hours Assessment and Plan (1) Neutropenic fever Current Visit: Yes Status: Acute Code(s): D70.9 - NEUTROPENIA, UNSPECIFIED; R50.81 - FEVER PRESENTING WITH CONDITIONS CLASSIFIED ELSEWHERE SNOMED Code(s): 878623413 (2) AML (acute myeloid leukemia) Current Visit: No Status: Acute Priority: High Code(s): C92.00 - ACUTE MYELOBLASTIC LEUKEMIA, NOT HAVING ACHIEVED REMISSION SNOMED Code(s): 64857706 (3) Anemia Current Visit: No Status: Acute Priority: High Code(s): D64.9 - ANEMIA, UNSPECIFIED SNOMED Code(s): 405208828 (4) Thrombocytopenia Current Visit: No Status: Acute Priority: High Code(s): D69.6 - THROMBOCYTOPENIA, UNSPECIFIED SNOMED Code(s): 317334794 (5) Hypokalemia Current Visit: Yes Status: Acute Code(s): E87.6 - HYPOKALEMIA SNOMED Code(s): 63008188 (6) Hypomagnesemia Current Visit: Yes Status: Acute Code(s): E83.42 - HYPOMAGNESEMIA SNOMED Code(s): 380190131 (7) Hypophosphatemia Current Visit: Yes Status: Acute Code(s): E83.39 - OTHER DISORDERS OF PHOSPHORUS METABOLISM SNOMED Code(s): 2686693 (8) Hypocalcemia Current Visit: Yes Status: Acute Code(s): E83.51 - HYPOCALCEMIA SNOMED Code(s): 2744150 (9) Acute respiratory insufficiency Current Visit: Yes Status: Acute Code(s): R06.89 - OTHER ABNORMALITIES OF BREATHING SNOMED Code(s): 519436306 (10) Hospital-acquired pneumonia Current Visit: Yes Status: Acute Code(s): J18.9 - PNEUMONIA, UNSPECIFIED ORGANISM; Y95 - NOSOCOMIAL CONDITION SNOMED Code(s): 903400375 (11) Hypotension Current Visit: Yes Status: Acute Code(s): I95.9 - HYPOTENSION, UNSPECIFIED SNOMED Code(s): 84989388 (12) Sepsis Current Visit: Yes Status: Acute Code(s): A41.9 - SEPSIS, UNSPECIFIED ORGANISM SNOMED Code(s): 16426777 (13) Respiratory failure Current Visit: Yes Status: Acute Code(s): J96.90 - RESPIRATORY FAILURE, UNSP, UNSP W HYPOXIA OR HYPERCAPNIA SNOMED Code(s): 810183670 (14) Sepsis Current Visit: No Status: Acute Priority: High Code(s): A41.9 - SEPSIS, UNSPECIFIED ORGANISM SNOMED Code(s): 34264523 Plan: Assessment and Recommendations: Febrile Neutropenia: - T Max 102.4.07/10/21 - Broad Spectrum ABX, AntiFungal, Anti VIRAL - Discussed with Dr. Marcano and ashlee add vancomycin back - Premedicate prior with benadryl - ID Following - COmplicated with possible pneumonia, pulmonary following - ?additional coverage, still febrile Acute Respiratory Failure: - In the care of ICU and receiving HI-FLOW oxygen 9Liters - Transferred on 07/11/21 - Bronchoscopy 07.11.21 Septic Shock: - Under care of ICU - Should recover with aggressive support care and when counts recover, expected within the next 3-7 days AML: - Status Post induction with 7+3, 06/23/21 - We are on Day 19. - Started on Rydapt 50mg po BID x14 days. Started on 07/03/21. - 27% misc. Fevers and potential worsening lung therefore will be held moving forward until improved from current situation - Aggressive treatment and Proactive supportive care Increased Respiratory Effort: - Patient and concerned with increased respiratory effort and new complaint of chest Diarrhea: - Questran added and recheck stool studies - Stool studies negative, antidiarrheals ok - No abdominal rigidity or tenderness on exam, ok to continue PO intake to toleration Hypokalemia:Improved - Supplemented - TMS monitoring. Other electrolyte deficiencies: - Supp prn PLAN: - Continue aggressive supportive care - Transfusion IRRADIATED PRBC <7, PLatelets <10K - platelets ordered today. - Should see recovery of counts and overall improvements over the next 3-7 days: in the interim continue aggressive supportive care - If intubation is needed during time, recommended as treatment of AML is agg ressive and curative - Bronchoscopy today per Pulmonary - Blood, Urine, Sputum cultures negative to date - Stop Rydapt - ID following anf Physician Attest: I have completed the full history and physical and agree with above dictation, dictated as a scribe
[2021-07-12] MEDS: LEVOFLOXACIN 750MG-D5W PMX 750 MG in DEXTROSE/WATER 1 150ML.BAG IVPB SCH (16:06)
[2021-07-12] MEDS: PANTOPRAZOLE 40 MG/10 ML VIAL IV SCH (16:12)
--- NOTE | 2021-07-12 17:27 | PN ---
PROGRESS NOTE DATE OF SERVICE: 07/12/2021 REASON FOR FOLLOWUP: Febrile neutropenia and pneumonia. INTERVAL HISTORY: The patient's overall fever pattern has improved. T-max of 100.2 degrees Fahrenheit today. Patient is on a BiPAP; however, she is feeling better and mentioned she is able to take a deep breath. No chest pain, though. No worsening cough. No abdominal pain. Did have one episode of loose stool today. PHYSICAL EXAMINATION: On examination, blood pressure 98/59 with a pulse of 100, temperature 99.9. She is 99% on 15 L high-flow oxygen. GENERAL DESCRIPTION: Elderly female lying in bed in no distress. RESPIRATORY SYSTEM: Unlabored breathing. Decreased intensity of breath sounds. No wheeze. HEART: S1, S2. Regular rate and rhythm. ABDOMEN: Soft. No tenderness. LABORATORY STUDIES: Hemoglobin is 7.6, white count 0.1 with a BUN of 12, creatinine 1.04. dropped to 33.2. Wound culture is currently pending. DIAGNOSTIC IMPRESSION AND PLAN: Patient with febrile neutropenia concerning for pneumonia, status post bronchoscopy. Cultures are currently pending. Vancomycin discontinued in view of the high trough and less likely for MRSA pneumonia. Patient to continue with cefepime, Levaquin and voriconazole, adjusting it further on the basis of the clinical response and culture. Discussed with the jive developer on the floor. MMODL / IJN: [id number] /
--- NOTE | 2021-07-12 17:28 | P.PN ---
Subjective Progress Note Date: 07/12/21 Principal diagnosis: fevers Patient is a 61-year-old female recently diagnosed with AML who started induction chemotherapy here during admission from 06/19 through 07/02. Repeat pres ented with neutropenic fevers. Subsequently diagnosed with pneumonia. Pulmonary and ID following, admitted to heme/onc. Bronch completed 07/11. All cultues are negative to date. Diflucan broadened to voriconzole on 07/11 and Levquin added. Patient seen on bedside with present. Currently BiPAP dependent. Feeling very tired and short of breath. Unable to come off the BiPAP to eat. General: Ill appearing, mild distress, appears at stated age Derm: warm, dry Head: atraumatic, normocephalic, symmetric Eyes: EOMI, no lid lag, anicteric sclera Mouth: no lip lesion, mucus membranes moist Cardiovascular: S1S2 reg, no murmur, positive posterior tibial pulse bilateral, Lungs: Rhonchi bilateral, 3 word conversational dyspnea, + accessory muscle use Abdominal: soft, nontender to palpation, no guarding, no appreciable organomegaly Ext: no gross muscle atrophy, trace edema, no contractures Neuro: CN II-XI grossly intact, no focal neuro deficits Psych: Alert, oriented, appropriate affect Neutropenic fevers Acute myelogenous leukemia Pancytopenia, chemo induced Pneumonia Acute hypoxic respiratory failure Diarrhea Sepsis without septic shock -Covid negative, legionella urine antigen negative, Aspergillus IgE negative - all cultres negative to date. - bronch 07/11, discussed with pathology and prelim fungal stain will be available in AM - ID, Pulm, Heme/pmc recs appreaciate - fungatile screen - Continue with vanco, cefepime, voriconzaole, levaquin, and acyclovir - monitor fever profile - Fecal lactoferrin +, C diff negative, stool cultures pending - cholestyramine - echo pending - s/p units pRBC and 5 units Plts - follow CBC and transfuse as indicated - Viral studies negative. Episode of tremors - EEG negative - CT head negative - neurology recs Hypokalemia, resolved Hypomagnesemia, resolved Hypophosphatemia, resolved Hypocalcemia , resolved Poor over all prognosis. Patient and updated on likely torres for progression to intubation Objective - Vital Signs Vital signs: Vital Signs Temp 99 F 07/12/21 16:00 Pulse 109 H 07/12/21 17:00 Resp 40 H 07/12/21 17:00 BP 103/69 07/12/21 17:00 Pulse Ox 94 L 07/12/21 17:00 Intake & Output 07/11/21 07/12/21 07/12/21 18:59 06:59 18:59 Intake Total 1337 2110 1240 Output Total 750 650 Balance 587 2110 590 Weight 93.9 kg Intake: IV 550 1650 1240 0.9 565 0.9% NaCl with KCl 20 Meq 250 /l 1,000 ml @ 50 mls/hr IV .Q20H [facility] Rx#: [id number] ACETAMINOPHEN IV (For NPO 100 ) 1,000 mg In Empty Bag 1 bag @ 400 mls/hr IVPB [facility]CE [facility] Rx#:[id number] Cefepime 2 gm In Sodium 200 100 200 Chloride 0.9% 100 ml @ 25 mls/hr IVPB Q8H [facility] Rx#: [id number] Fluconazole in NaCl,Iso- 50 Osm 100 mg In Saline 1 50ml.bag @ 50 mls/hr IVPB DAILY [facility] Rx#:[id number] Levofloxacin 750Mg-D5w 150 150 Pmx 750 mg In Dextrose/ Water 1 150ml.bag @ 100 mls/hr IVPB Q24H [facility] Rx#: [id number] Potassium Chloride 20 meq 300 In Water For Injection 1 100ml.bag @ 50 mls/hr IVPB Q2H [facility] Rx#: [id number] Sodium Chloride 0.9% 1, 75 000 ml @ 75 mls/hr IV . [id number] [facility] Rx#:[id number] Sodium Chloride 0.9% 1, 1000 000 ml @ 999 mls/hr IV . Q1H1M [facility] Rx#:[id number] Voriconazole 500 mg In 250 Sodium Chloride 0.9% 250 ml @ 125 mls/hr IVPB Q12HR [facility] Rx#:[id number] Intake, IV Titration 500 Amount Acyclovir Sodium 500 mg 100 In Sodium Chloride 0.9% 100 ml @ 100 mls/hr IVPB Q8H [facility] Rx#:[id number] Levofloxacin 750Mg-D5w 150 Pmx 750 mg In Dextrose/ Water 1 150ml.bag @ 100 mls/hr IVPB Q24H [facility] Rx#: [id number] Vancomycin 1,500 mg In 250 Sodium Chloride 0.9% 250 ml @ 125 mls/hr IVPB Q8H [facility] Rx#:[id number] Blood Product 287 310 Platelet Pheresis Pas 287 Psoralen Unit [id number] Rc Irr As1 Unit 310 [id number] Other 150 Rc Irr As1 Unit 150 [id number] Output: Urine 750 650 Other: Voiding Method Bedside Commode Bedside Commode Bedside Commode # Voids 1 0 1 - Labs CBC & Chem 7: 07/12/21 04:54 07/12/21 04:54 Labs: Abnormal Lab Results - Last 24 Hours (Table) 07/11/21 07/11/21 07/11/21 Range/Units 16:04 16:04 17:36 WBC (3.8-10.6) k/uL RBC (3.80-5.40) m/uL Hgb 6.8 L* (11.4-16.0) gm/dL Hct 19.6 L* (34.0-46.0) % Plt Count (150-450) k/uL PT (9.0-12.0) sec INR (<1.2) Potassium 3.1 L (3.5-5.1) mmol/L Chloride (98-107) mmol/L Creatinine 1.06 H (0.52-1.04) mg/dL Glucose 150 H (74-99) mg/dL Calcium 7.8 L (8.4-10.2) mg/dL Magnesium (1.6-2.3) mg/dL AST (14-36) U/L ALT (4-34) U/L Lactate Dehydrogenase (313-618) U/L Total Protein (6.3-8.2) g/dL Albumin (3.5-5.0) g/dL Vancomycin Trough ug/mL Crossmatch See Detail 07/11/21 07/12/21 07/12/21 Range/Units 22:20 04:54 04:54 WBC 0.1 L* 0.1 L* (3.8-10.6) k/uL RBC 2.29 L 2.49 L (3.80-5.40) m/uL Hgb 7.1 L 7.6 L (11.4-16.0) gm/dL Hct 20.5 L 22.2 L (34.0-46.0) % Plt Count 7 L* 8 L* (150-450) k/uL PT (9.0-12.0) sec INR (<1.2) Potassium (3.5-5.1) mmol/L Chloride (98-107) mmol/L Creatinine (0.52-1.04) mg/dL Glucose (74-99) mg/dL Calcium (8.4-10.2) mg/dL Magnesium (1.6-2.3) mg/dL AST (14-36) U/L ALT (4-34) U/L Lactate Dehydrogenase (313-618) U/L Total Protein (6.3-8.2) g/dL Albumin (3.5-5.0) g/dL Vancomycin Trough 33.2 H* ug/mL Crossmatch 07/12/21 07/12/21 Range/Units 04:54 04:54 WBC (3.8-10.6) k/uL RBC (3.80-5.40) m/uL Hgb (11.4-16.0) gm/dL Hct (34.0-46.0) % Plt Count (150-450) k/uL PT 14.0 H (9.0-12.0) sec INR 1.4 H (<1.2) Potassium (3.5-5.1) mmol/L Chloride 109 H (98-107) mmol/L Creatinine (0.52-1.04) mg/dL Glucose 140 H (74-99) mg/dL Calcium 7.7 L (8.4-10.2) mg/dL Magnesium 2.5 H (1.6-2.3) mg/dL AST 46 H (14-36) U/L ALT 41 H (4-34) U/L Lactate Dehydrogenase 636 H (313-618) U/L Total Protein 5.2 L (6.3-8.2) g/dL Albumin 2.4 L (3.5-5.0) g/dL Vancomycin Trough ug/mL Crossmatch Microbiology - Last 24 Hours (Table) 07/09/21 13:00 Blood Culture - Preliminary Blood No Growth after 72 hours 07/11/21 15:00 Bronchial Washings Culture - Preliminary Bronchial Washings - Random 07/07/21 09:01 Blood Culture - Preliminary Blood No Growth after 120 hours 07/07/21 09:01 Blood Culture - Preliminary Blood No Growth after 120 hours 07/09/21 05:00 Gram Stain - Final Sputum Sputum Culture - Final 07/11/21 15:00 Acid Fast Bacilli Culture - Preliminary Bronchial Washings - Random 07/11/21 15:00 Fungal Culture - Preliminary Bronchial Washings - Random 07/11/21 15:00 Legionella Culture - Preliminary Bronchial Washings - Random 07/10/21 19:00 Urine Culture - Final Urine,Voided 07/08/21 16:00 Blood Culture - Preliminary Blood No Growth after 72 hours
[2021-07-12] MEDS ORDERED: FUROSEMIDE 10 MG/ML 4 ML VIAL IV STA (20:40)
[2021-07-13] MEDS: SODIUM CHLORIDE 0.9% 1,000 ML IV SCH ×2 (03:02→17:24)
[2021-07-13] MEDS: CEFEPIME 2 GM in SODIUM CHLORIDE 0.9% 100 ML IVPB SCH ×3 (03:02→21:43)
[2021-07-13] MEDS: ALBUTEROL NEBULIZED 2.5 MG/3 ML INHALATION PRN (03:22)
[2021-07-13] MEDS: DILTIAZEM 125 MG in SODIUM CHLORIDE 0.9% 100 ML IV SCH ×2 (03:50→15:47)
[2021-07-13 05:27] LABS: HCT 22.2 % (34.0-46.0); HGB 7.5 gm/dL (11.4-16.0); MCH 30.7 pg (25.0-35.0); MCHC 33.6 g/dL (31.0-37.0); MCV 91.2 fL (80.0-100.0); Mean Platelet Volume 8.7; RBC 2.44 m/uL (3.80-5.40); RDW 15.6 % (11.5-15.5)
[2021-07-13 05:34] LABS: Platelet Count 14 k/uL (150-450); WBC 0.2 k/uL (3.8-10.6)
[2021-07-13 05:58] LABS: Albumin 2.5 g/dL (3.5-5.0); Calcium 7.8 mg/dL (8.4-10.2); Magnesium 2.1 mg/dL (1.6-2.3); Potassium 3.9 mmol/L (3.5-5.1); Total Bilirubin 0.3 mg/dL (0.2-1.3); Total Protein 5.3 g/dL (6.3-8.2)
[2021-07-13] MEDS: LORazepam 2 MG/ML INJ IV PRN ×4 (06:00→23:45)
[2021-07-13] MEDS: ACYCLOVIR SODIUM 500 MG in SODIUM CHLORIDE 0.9% 100 ML IVPB SCH ×3 (06:59→21:45)
[2021-07-13] MEDS: ALBUTEROL NEBULIZED 2.5 MG/3 ML INHALATION SCH ×4 (08:35→19:44)
[2021-07-13] MEDS: POTASSIUM CHLORIDE 10 MEQ in WATER FOR INJECTION 1 100ML.BAG IVPB SCH ×2 (08:49→10:24)
[2021-07-13] MEDS: MIDOSTAURIN 25 MG PO SCH ×2 (08:51→21:44)
[2021-07-13] MEDS: PARoxetine 10 MG TAB PO SCH (08:52)
[2021-07-13] MEDS: POTAS-SOD-PHOS 278-164-250 MG 1 EACH PACKET PO SCH ×3 (08:55→21:45)
[2021-07-13] MEDS: CHOLESTYRAMINE (WITH SUGAR) 4 GM PACKET PO SCH ×2 (08:55→18:25)
[2021-07-13] MEDS: SALT AND SODA MOUTHWASH 1,000 ML PO SCH ×4 (08:55→21:45)
[2021-07-13] MEDS: ZINC SULFATE 220 MG CAP PO SCH (08:55)
--- NOTE | 2021-07-13 09:03 | XR ---
EXAMINATION TYPE: XR chest 1V portable DATE OF EXAM: 07/13/2021 Comparison: 07/12/2021 Clinical History: 61-year-old female follow-up pneumonia Findings: Heart borderline enlarged. Right PICC tip at the brachiocephalic vein confluence, unchanged. Diffuse interstitial and patchy bilateral opacities persist. Slight improving aeration on the right. Small le ft pleural effusion. Impression: Diffuse interstitial and patchy airspace disease shows slight improvement on the right. Small left pl eural effusion. Correlate for atypical or multifocal pneumonia versus pulmonary edema.
[2021-07-13] MEDS: diphenhydrAMINE 50 MG/ML 1 ML VIAL IVP SCH (09:08)
[2021-07-13] MEDS: PANTOPRAZOLE 40 MG/10 ML VIAL IV SCH (09:13)
[2021-07-13] MEDS ORDERED: FUROSEMIDE 10 MG/ML 4 ML VIAL IV STA (09:57)
[2021-07-13] MEDS ORDERED: VORICONAZOLE 200 MG TAB PO SCH (10:30)
--- NOTE | 2021-07-13 12:00 | ECHOF ---
Referral Reason:Assessment ejection fraction MEASUREMENTS -------- HEIGHT: 162.6 cm WEIGHT: 80.7 kg BP: 104/61 RAP: 5.00 mmHg RVSP: 34.32 mmHg FINDINGS -------- Sinus rhythm. Limited Study Overall left ventricular systolic function is low-normal with, an EF between 50 - 55 %. The aortic valve is trileaflet, and appears structurally normal. No aortic stenosis or regurgitation. Ovqbxxls-id-uwzbrf mitral regurgitation is present. Mild tricuspid regurgitation present. There is mild pulmonary hypertension. The right ventricular systolic pressure, as measured by Doppler, is 34.32mmHg. There is no pericardial effusion. CONCLUSIONS -------- 1. Limited Study 2. Overall left ventricular systolic function is low-normal with, an EF between 50 - 55 %. 3. The aortic valve is trileaflet, and appears structurally normal. No aortic stenosis or regurgitati on. 4. Wncftvyk-hj-mxugyy mitral regurgitation is present. 5. Mild tricuspid regurgitation present. 6. There is mild pulmonary hypertension. 7. The right ventricular systolic pressure, as measured by Doppler, is 34.32mmHg. 8. There is no pericardial effusion. 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
[2021-07-13] MEDS: VORICONAZOLE IVPB SCH ×2 (12:47→21:44)
[2021-07-13] MEDS: SODIUM CHLORIDE 0.9% IVPB SCH ×2 (12:47→21:44)
--- NOTE | 2021-07-13 14:16 | P.PN ---
Subjective Progress Note Date: 07/13/21 (delayed charting seen at 1000) Principal diagnosis: fevers Patient is a 61-year-old female recently diagnosed with AML who started induction chemotherapy here during admission from 06/19 through 07/02. Repeat presented with neutropenic fevers. Subsequently diagnosed with pneumonia. Pulmonary and ID following, admitted to heme/onc. Bronch completed 07/11. All cultures are negative to date. Diflucan broadened to voriconzole on 07/11 and Levquin added. 07/12 patient went into A fib with RVR and was started on a cardizem gtt. Patient seen on bedside. Continues to be BiPAP dependent. Continues to feels SOB and fatigued. No nausea, no diarrhea. updated on plan of care. General: Ill appearing, moderate distress, appears at stated age Derm: petchaia bilateral lower extremities. warm, dry Head: atraumatic, normocephalic, symmetric Eyes: EOMI, no lid lag, anicteric sclera Mouth: no lip lesion, mucus membranes moist Cardiovascular: S1S2 reg, no murmur, positive posterior tibial pulse bilateral, Lungs: Rhonchi bilateral, 3 word conversational dyspnea, + accessory muscle use Abdominal: soft, nontender to palpation, no guarding, no appreciable organomegaly Ext: no gross muscle atrophy, trace edema, no contractures Neuro: CN II-XI grossly intact, no focal neuro deficits Psych: Alert, oriented, appropriate affect Neutropenic fevers Acute myelogenous leukemia Pancytopenia, chemo induced Pneumonia Acute hypoxic respiratory failure Diarrhea Sepsis without septic shock -Covid negative, legionella urine antigen negative, Aspergillus IgE negative - all cultres negative to date. - called [facility] and PCP stain is negative. awaiting final report in EHR. - bronch 07/11, discussed with pathology and prelim fungal stain will be av ailable in AM - ID, Pulm, Heme/pmc recs appreciated - fungatile screen pending - Continue with vanco, cefepime, voriconzaole, levaquin, and acyclovir - monitor fever profile - Fecal lactoferrin +, C diff negative, stool cultures pending - cholestyramine - s/p units pRBC and 5 units Plts - follow CBC and transfuse as indicated - Viral studies negative. A fib with RVR - goal HR <110 - Cardizem gtt - No anticoagulation due to plt of 14 and high risk of bleeding - tele - await echo read - consider cardio consult if echo is abnormal Episode of tremors - EEG negative - CT head negative - neurology recs Moderate to severe MR Hypokalemia, resolved Hypomagnesemia, resolved Hypophosphatemia, resolved Hypocalcemia , resolved Poor over all prognosis. Awaiting direct AB stain results from [facility] [id number] Objective - Vital Signs Vital signs: Vital Signs Temp 99.2 F 07/13/21 12:00 Pulse 95 07/13/21 12:00 Resp 30 H 07/13/21 12:00 BP 107/68 07/13/21 12:00 Pulse Ox 100 07/13/21 12:00 Intake & Output 07/12/21 07/13/21 07/13/21 18:59 06:59 18:59 Intake Total 1315 1215 526.25 Output Total 650 651 650 Balance 665 564 -123.75 Weight 90.8 kg Intake: IV 1315 1200 390 0.9 640 175 65 Cefepime 2 gm In Sodium 200 100 Chloride 0.9% 100 ml @ 25 mls/hr IVPB Q8H [facility] Rx#: [id number] Levofloxacin 750Mg-D5w 150 Pmx 750 mg In Dextrose/ Water 1 150ml.bag @ 100 mls/hr IVPB Q24H [facility] Rx#: [id number] Potassium Chloride 20 meq 100 In Water For Injection 1 100ml.bag @ 50 mls/hr IVPB Q2H [facility] Rx#: [id number] Sodium Chloride 0.9% 1, 75 675 225 000 ml @ 20 mls/hr IV . Q24H [facility] Rx#:[id number] Voriconazole 500 mg In 250 250 Sodium Chloride 0.9% 250 ml @ 125 mls/hr IVPB Q12HR [facility] Rx#:[id number] Intake, IV Titration 15 136.25 Amount Acyclovir Sodium 500 mg 100 In Sodium Chloride 0.9% 100 ml @ 100 mls/hr IVPB Q8H [facility] Rx#:[id number] Diltiazem 125 mg In 15 36.25 Sodium Chloride 0.9% 100 ml @ 5 MG/HR 5 mls/hr IV .Q24H [facility] Rx#:[id number] Blood Product 0 Platelet Pheresis Pas 0 Psoralen Unit [id number] Output: Urine 650 650 650 Urine/Stool Mix 1 Other: Voiding Method Bedside Commode Bedside Commode Bedside Commode External Catheter External Catheter # Voids 1 0 - Labs CBC & Chem 7: 07/13/21 04:31 07/13/21 04:31 Labs: Abnormal Lab Results - Last 24 Hours (Table) 07/13/21 07/13/21 Range/Units 04:31 04:31 WBC 0.2 L* (3.8-10.6) k/uL RBC 2.44 L (3.80-5.40) m/uL Hgb 7.5 L (11.4-16.0) gm/dL Hct 22.2 L (34.0-46.0) % RDW 15.6 H (11.5-15.5) % Plt Count 14 L* D (150-450) k/uL Chloride 108 H (98-107) mmol/L Creatinine 1.10 H (0.52-1.04) mg/dL Glucose 152 H (74-99) mg/dL Calcium 7.8 L (8.4-10.2) mg/dL AST 44 H (14-36) U/L ALT 44 H (4-34) U/L Total Protein 5.3 L (6.3-8.2) g/dL Albumin 2.5 L (3.5-5.0) g/dL Microbiology - Last 24 Hours (Table) 07/07/21 09:01 Blood Culture - Final Blood No Growth after 144 hours 07/07/21 09:01 Blood Culture - Final Blood No Growth after 144 hours 07/11/21 15:00 Bronchial Washings Culture - Preliminary Bronchial Washings - Random 07/11/21 15:00 Acid Fast Bacilli Smear - Final Bronchial Washings - Random Acid Fast Bacilli Culture - Preliminary 07/08/21 16:00 Blood Culture - Preliminary Blood No Growth after 96 hours 07/09/21 13:00 Blood Culture - Preliminary Blood No Growth after 72 hours 07/09/21 05:00 Gram Stain - Final Sputum Sputum Culture - Final
--- NOTE | 2021-07-13 14:25 | P.PN ---
Subjective Progress Note Date: 07/13/21 On today's evaluation of 07/11/2021, the patient is clinically worse and the patient got transferred to the intensive care unit as the patient became more short of breath. Yesterday she was on 2 L of oxygen by nasal cannula and by around 4 AM this morning the patient became more short of breath and hypoxic and she had to be placed on 9 L of oxygen by nasal cannula. Her current pulse ox is 91%. She is still spiking fever. Her chest x-ray shows worsening of the bilateral pulmonary infiltrates consistent with pneumonia. She continues to be pancytopenic with a white cell count of 0.3 and hemoglobin of 8 with a platelet count of 10. Blood cultures of been negative. Sputum cultures been negative. The COVID-19 testing was rechecked and was negative. The patient has also Legionella urine antigen pending. The plan is to proceed with a bronchoscopy and the bronchioloalveolar lavage to establish microbial diagnoses with a high suspicion for an underlying which is thick infection. Meanwhile, the patient is being seen by infectious disease and she is still covered with same antibiotic coverage. She is on combination of cefepime and vancomycin. She is also on acyclovir and Diflucan. Case was discussed with the . 07/12/2021, I'm seeing this patient for a follow-up. The patient's condition has decompensated since yesterday and the patient has become slightly more short of breath especially post bronchoscopy. In oxygen requirements went up. She was placed on on the percent on a beta facemasks and currently she is on a BiPAP at a pressure of 12/6 cm of water and FiO2 of 50%. The chest x-ray showing worsening in the bilateral pulmonary infiltrates especially on the rise. Results of the bronchoscopy are still pending for now. No active microbial growth. Legionella urine antigen was also negative. The patient wbc is at 0.1 from this morning, and further antibiotic modification has been done. Voriconazole was added. Diflucan was discontinued. The patient is also on a combination of cefepime, vancomycin and Levaquin. ID is on the case for now. Vancomycin trough level was at 33.2. She has been afebrile over the past 12 hours. T-max from this morning was 99.7, and at around 4 AM she spiked a low- grade fever of 1.2. She is a bit lethargic and awake. She symptoms with the BiPAP mask. We'll try to transition her to a high flow oxygen if possible. H emodynamically stable on no pressors. Results of the bronchioloalveolar lavage obtained yesterday are still pending. Platelet count is at 8. No hemoptysis. 07/13/2021, the patient remains on BiPAP and this morning the patient on a BiPAP of 12/6 with an FiO2 of 80%. Unable to take of the BiPAP. A brief attempt to take her off the BiPAP failure the patient became quite short of breath and hypo xic. This was tried earlier this morning. The patient is no fever over the past 24 hours. Nevertheless, no microbial cultures or identification has been achieved in this patient. The bronchioloalveolar lavage results of been essentially negative for now and all of the cultures are negative. Chest x-ray still showing bilateral pneumonia with diffuse but the pulmonary infiltrates more so on the right. She remains essentially on same antibiotic coverage. The patient is receiving a combination of cefepime, vancomycin, Levaquin, and voriconazole and acyclovir. Unfortunately, hematologic profile is still abnormal. The white cell count is low 0.2. Her white cell count is at 0.2. Hemoglobin is at 7.5. Platelet count is at 14. No signs of any acute bleed. The patient was given a dose of Lasix 40 mg IV push yesterday to maintain at least an adequate fluid balance. Renal function stable with a creatinine of 1.1 and the BUN of 15. Electrolytes are normal. Rest of the liver function tests are also within normal limits. Serum and urine is down to 2.5 with a total protein of 5.3. The viral cultures from the bronchioloalveolar lavage came back also negative. She is slightly anxious pH is receiving Ativan for increased anxiety. She seems to be quite Synchronous with the BiPAP machine at this point in time pH is tolerating a BiPAP full face mask. Oral intake is minimal at the patient is 60 BiPAP dependent for now. Objective - Vital Signs Vital signs: Vital Signs Temp 99.2 F 07/13/21 12:00 Pulse 97 07/13/21 13:00 Resp 33 H 07/13/21 13:00 BP 107/73 07/13/21 13:00 Pulse Ox 96 07/13/21 13:00 Intake & Output 07/12/21 07/13/21 07/13/21 18:59 06:59 18:59 Intake Total 1315 1215 526.25 Output Total 650 651 650 Balance 665 564 -123.75 Weight 90.8 kg Intake: IV 1315 1200 390 0.9 640 175 65 Cefepime 2 gm In Sodium 200 100 Chloride 0.9% 100 ml @ 25 mls/hr IVPB Q8H ANJEL Rx#: [id number] Levofloxacin 750Mg-D5w 150 Pmx 750 mg In Dextrose/ Water 1 150ml.bag @ 100 mls/hr IVPB Q24H ANJEL Rx#: [id number] Potassium Chloride 20 meq 100 In Water For Injection 1 100ml.bag @ 50 mls/hr IVPB Q2H ANJEL Rx#: [id number] Sodium Chloride 0.9% 1, 75 675 225 000 ml @ 20 mls/hr IV . Q24H ANJEL Rx#:[id number] Voriconazole 500 mg In 250 250 Sodium Chloride 0.9% 250 ml @ 125 mls/hr IVPB Q12HR ANEJL Rx#:[id number] Intake, IV Titration 15 136.25 Amount Acyclovir Sodium 500 mg 100 In Sodium Chloride 0.9% 100 ml @ 100 mls/hr IVPB Q8H ANJEL Rx#:[id number] Diltiazem 125 mg In 15 36.25 Sodium Chloride 0.9% 100 ml @ 5 MG/HR 5 mls/hr IV .Q24H ANJEL Rx#:[id number] Blood Product 0 Platelet Pheresis Pas 0 Psoralen Unit [id number] Output: Urine 650 650 650 Urine/Stool Mix 1 Other: Voiding Method Bedside Commode Bedside Commode Bedside Commode External Catheter External Catheter # Voids 1 0 - Exam Gen. appearance the patient is mild degree of respirator distress currently on a BiPAP at a pressure of 12/6 cm of water with an FiO2 of 80%. Not using exce ssive muscle breathing. She has however slightly tachypneic and her breathing is probably more labored compared to yesterday. The patient is also anxious. Head exam was generally normal. There was no scleral icterus or corneal arcus. Mucous membranes were moist. Neck was supple and without jugular venous distension, thyromegaly, or carotid bruits. Carotids were easily palpable bilaterally. There was no adenopathy. Lungs sounds are diminished otherwise clear. Breath sounds are equal and symmet rical bilaterally. Cardiac exam revealed the PMI to be normally situated and sized. The rhythm was regular and no extrasystoles were noted during several minutes of auscultation. The first and second heart sounds were normal and physiologic splitting of the second heart sound was noted. There were no murmurs, rubs, clicks, or gallops. Abdominal exam revealed normal bowel sounds. The abdomen was soft, non-tender, and without masses, organomegaly, or appreciable enlargement of the abdominal aorta. Examination of the extremities revealed easily palpable radial, femoral and pedal pulses. There was no cyanosis, clubbing or edema. Examination of the skin revealed no evidence of significant rashes, suspicious appearing nevi or other concerning lesions. The patient has petechia in the lower extremities bilaterally related to underlying thrombocytopenia. Few areas of bruising, not extensive. Neurologically, the patient is awake and alert and the patient does not have any focal neurological deficit. Cranial nerves are essentially intact. - Labs CBC & Chem 7: 07/13/21 04:31 07/13/21 04:31 Labs: Abnormal Lab Results - Last 24 Hours (Table) 07/13/21 07/13/21 Range/Units 04:31 04:31 WBC 0.2 L* (3.8-10.6) k/uL RBC 2.44 L (3.80-5.40) m/uL Hgb 7.5 L (11.4-16.0) gm/dL Hct 22.2 L (34.0-46.0) % RDW 15.6 H (11.5-15.5) % Plt Count 14 L* D (150-450) k/uL Chloride 108 H (98-107) mmol/L Creatinine 1.10 H (0.52-1.04) mg/dL Glucose 152 H (74-99) mg/dL Calcium 7.8 L (8.4-10.2) mg/dL AST 44 H (14-36) U/L ALT 44 H (4-34) U/L Total Protein 5.3 L (6.3-8.2) g/dL Albumin 2.5 L (3.5-5.0) g/dL Microbiology - Last 24 Hours (Table) 07/07/21 09:01 Blood Culture - Final Blood No Growth after 144 hours 07/07/21 09:01 Blood Culture - Final Blood No Growth after 144 hours 07/11/21 15:00 Bronchial Washings Culture - Preliminary Bronchial Washings - Random 07/11/21 15:00 Acid Fast Bacilli Smear - Final Bronchial Washings - Random Acid Fast Bacilli Culture - Preliminary 07/08/21 16:00 Blood Culture - Preliminary Blood No Growth after 96 hours 07/09/21 13:00 Blood Culture - Preliminary Blood No Growth after 72 hours 07/09/21 05:00 Gram Stain - Final Sputum Sputum Culture - Final Assessment and Plan Plan: 1acute bilateral pneumonia with coarse interstitial pulmonary infiltrates, consider opportunistic infections especially with her underlying immunosuppression. Patient has developed worsening bilateral pulmonary in filtrates and the patient is currently BiPAP dependent. Antibiotic coverage is included a combination of cefepime, Levaquin, vancomycin, acyclovir and voriconazole. Hemodynamically stable. Currently BiPAP dependent. White cell count remains low at 0.2 and the patient is not showing any signs of improvement over the past 24 hours. She is afebrile. Nevertheless, the chest exit findings are essentially the same and she is 60 BiPAP dependent which is running at a pressure of 12/6 cm of water and FiO2 of 80%. Unable to transition her to high flow oxygen due to poor tolerability and desaturation. The patient remains hemodynamically stable however. Awaiting further cultures. 2 acute hypoxic respiratory failure and the rate to above with worsening pneumonia 3 shortness of breath secondary to but not limited to above mentioned pneumonia. 4 acute myeloid leukemia post induction chemotherapy 5 pancytopenia 6 episodic fever currently under investigation. Cultures are negative and the patient is covered with broad-spectrum antibiotics. The patient is a PICC line in the right upper extremity. Afebrile for the past 24 hours 7 electrolytes disturbance, being managed and replaced 8 diarrhea, stool for C. diff has been negative, still having some diarrhea Plan Keep BiPAP for now and the same level of pressures Keep same antibiotic coverage Awaiting results of the bronchioloalveolar lavage, contacted labs. No new cultures or results available. Monitor hematologic profile. White cell count remains low. No need for platelet transfusion for today. Monitor hematologic profile. Echocardiogram to be completed and the patient is a preserved LV function with an ejection fraction of 50-55%. IV fluids at KVO for now Given an additional dose of Lasix 40 mg IV push 1 Condition is critical. Case was discussed with the at the bedside. Case was also discussed with hematology oncology and infectious disease.
--- NOTE | 2021-07-13 16:03 | P.PN ---
Subjective Progress Note Date: 07/13/21 Principal diagnosis: febrile neutropenia Seen and Evaluated this am, remains on Bipap. Afebrile 24-48 hours. Pulmonary at bedside. WBC up to 0.2, hemoglobin holding above 7 Objective - Vital Signs Vital signs: Vital Signs Temp 99.2 F 07/13/21 12:00 Pulse 98 07/13/21 15:00 Resp 31 H 07/13/21 15:00 BP 103/74 07/13/21 15:00 Pulse Ox 97 07/13/21 15:00 Intake & Output 07/12/21 07/13/21 07/13/21 18:59 06:59 18:59 Intake Total 1315 1215 663.25 Output Total 650 651 650 Balance 665 564 13.25 Weight 90.8 kg Intake: IV 1315 1200 470 0.9 640 175 145 Cefepime 2 gm In Sodium 200 100 Chloride 0.9% 100 ml @ 25 mls/hr IVPB Q8H ANJEL Rx#: [id number] Levofloxacin 750Mg-D5w 150 Pmx 750 mg In Dextrose/ Water 1 150ml.bag @ 100 mls/hr IVPB Q24H ANJEL Rx#: [id number] Potassium Chloride 20 meq 100 In Water For Injection 1 100ml.bag @ 50 mls/hr IVPB Q2H ANJEL Rx#: [id number] Sodium Chloride 0.9% 1, 75 675 225 000 ml @ 20 mls/hr IV . Q24H ANJEL Rx#:[id number] Voriconazole 500 mg In 250 250 Sodium Chloride 0.9% 250 ml @ 125 mls/hr IVPB Q12HR ANJEL Rx#:[id number] Intake, IV Titration 15 193.25 Amount Acyclovir Sodium 500 mg 100 In Sodium Chloride 0.9% 100 ml @ 100 mls/hr IVPB Q8H ANJEL Rx#:[id number] Diltiazem 125 mg In 15 93.25 Sodium Chloride 0.9% 100 ml @ 5 MG/HR 5 mls/hr IV .Q24H ANJEL Rx#:[id number] Blood Product 0 Platelet Pheresis Pas 0 Psoralen Unit [id number] Output: Urine 650 650 650 Urine/Stool Mix 1 Other: Voiding Method Bedside Commode Bedside Commode Bedside Commode External Catheter External Catheter # Voids 1 2 - Exam - Constitutional General appearance: Present: average body habitus, cooperative, no acute distress - EENT Eyes: Present: anicteric sclerae, EOMI ENT: Present: hearing grossly normal, normal oropharynx - Respiratory Respiratory:Diminished and bilateral wheezes present. increased respiratory effort is improved on bipap. - Cardiovascular Rhythm: Tachy Heart sounds: normal: S1, S2 - Peripheral edema leg Peripheral Edema: bilateral: None - Gastrointestinal General gastrointestinal: Present: normal bowel sounds, soft - Integumentary Integumentary: Present: normal turgor, pale, areas of eccymosis on forehead and arms, lower extremity RLE petechaei\y. Also petechaei rash has extended up to thighs - Neurologic Neurologic: Present: CNII-XII intact - Musculoskeletal Musculoskeletal: Present: strength equal bilaterally - Psychiatric Psychiatric: Present: A&O x's 3, appropriate affect, intact judgment & insigh - Labs CBC & Chem 7: 07/13/21 04:31 07/13/21 04:31 Labs: Abnormal Lab Results - Last 24 Hours (Table) 07/13/21 07/13/21 Range/Units 04:31 04:31 WBC 0.2 L* (3.8-10.6) k/uL RBC 2.44 L (3.80-5.40) m/uL Hgb 7.5 L (11.4-16.0) gm/dL Hct 22.2 L (34.0-46.0) % RDW 15.6 H (11.5-15.5) % Plt Count 14 L* D (150-450) k/uL Chloride 108 H (98-107) mmol/L Creatinine 1.10 H (0.52-1.04) mg/dL Glucose 152 H (74-99) mg/dL Calcium 7.8 L (8.4-10.2) mg/dL AST 44 H (14-36) U/L ALT 44 H (4-34) U/L Total Protein 5.3 L (6.3-8.2) g/dL Albumin 2.5 L (3.5-5.0) g/dL Microbiology - Last 24 Hours (Table) 07/07/21 09:01 Blood Culture - Final Blood No Growth after 144 hours 07/07/21 09:01 Blood Culture - Final Blood No Growth after 144 hours 07/11/21 15:00 Bronchial Washings Culture - Preliminary Bronchial Washings - Random 07/11/21 15:00 Acid Fast Bacilli Smear - Final Bronchial Washings - Random Acid Fast Bacilli Culture - Preliminary 07/08/21 16:00 Blood Culture - Preliminary Blood No Growth after 96 hours 07/09/21 13:00 Blood Culture - Preliminary Blood No Growth after 72 hours Assessment and Plan (1) Neutropenic fever Current Visit: Yes Status: Acute Code(s): D70.9 - NEUTROPENIA, UNSPECIFIED; R50.81 - FEVER PRESENTING WITH CONDITIONS CLASSIFIED ELSEWHERE SNOMED Code(s): 780886307 (2) AML (acute myeloid leukemia) Current Visit: No Status: Acute Priority: High Code(s): C92.00 - ACUTE MYELOBLASTIC LEUKEMIA, NOT HAVING ACHIEVED REMISSION SNOMED Code(s): 38608516 (3) Anemia Current Visit: No Status: Acute Priority: High Code(s): D64.9 - ANEMIA, UNSPECIFIED SNOMED Code(s): 976107011 (4) Thrombocytopenia Current Visit: No Status: Acute Priority: High Code(s): D69.6 - THROMBOCYTOPENIA, UNSPECIFIED SNOMED Code(s): 085427831 (5) Hypokalemia Current Visit: Yes Status: Acute Code(s): E87.6 - HYPOKALEMIA SNOMED Cod e(s): 85379517 (6) Hypomagnesemia Current Visit: Yes Status: Acute Code(s): E83.42 - HYPOMAGNESEMIA SNOMED Code(s): 328181003 (7) Hypophosphatemia Current Visit: Yes Status: Acute Code(s): E83.39 - OTHER DISORDERS OF PHOSPHORUS METABOLISM SNOMED Code(s): 5531336 (8) Hypocalcemia Current Visit: Yes Status: Acute Code(s): E83.51 - HYPOCALCEMIA SNOMED Code(s): 2501120 (9) Acute respiratory insufficiency Current Visit: Yes Status: Acute Code(s): R06.89 - OTHER ABNORMALITIES OF BREATHING SNOMED Code(s): 597716881 (10) Hospital-acquired pneumonia Current Visit: Yes Status: Acute Code(s): J18.9 - PNEUMONIA, UNSPECIFIED ORGANISM; Y95 - NOSOCOMIAL CONDITION SNOMED Code(s): 562575034 (11) Hypotension Current Visit: Yes Status: Acute Code(s): I95.9 - HYPOTENSION, UNSPECIFIED SNOMED Code(s): 59651609 (12) Sepsis Current Visit: Yes Status: Acute Code(s): A41.9 - SEPSIS, UNSPECIFIED ORGANISM SNOMED Code(s): 04866397 (13) Respiratory failure Current Visit: Yes Status: Acute Code(s): J96.90 - RESPIRATORY FAILURE, UNSP, UNSP W HYPOXIA OR HYPERCAPNIA SNOMED Code(s): 350320728 (14) Sepsis Current Visit: No Status: Acute Priority: High Code(s): A41.9 - SEPSIS, UNSPECIFIED ORGANISM SNOMED Code(s): 86283865 Plan: Assessment and Recommendations: Febrile Neutropenia: - T Max 102.4.07/10/21 - Broad Spectrum ABX, AntiFungal, Anti VIRAL - Discussed with Dr. Marcano and ashlee add vancomycin back - Premedicate prior with benadryl - ID Following - COmplicated with possible pneumonia, pulmonary following - ?additional coverage, still febrile Acute Respiratory Failure: - In the care of ICU and receiving HI-FLOW oxygen 9Liters - Transferred on 07/11/21 - Bronchoscopy 07.11.21 Septic Shock: - Under care of ICU - Should recover with aggressive support care and when counts recover, expected within the next 3-7 days AML: - Status Post induction with 7+3, 06/23/21 - We are on Day 19. - Started on Rydapt 50mg po BID x14 days. Started on 07/03/21. HELD on 07/11/21 - 27% misc. Fevers and potential worsening lung therefore will be held moving forward until improved from current situation - Aggressive treatment and Proactive supportive care Increased Respiratory Effort: - Patient and concerned with increased respiratory effort and new complaint of chest Diarrhea: - Questran added and recheck stool studies - Stool studies negative, antidiarrheals ok - No abdominal rigidity or tenderness on exam, ok to continue PO intake to toleration Hypokalemia:Improved - Supplemented - TMS monitoring. Other electrolyte deficiencies: - Supp prn PLAN: - Continue aggressive supportive care - Transfusion IRRADIATED PRBC <7, PLatelets <10K - platelets ordered today. - Should see recovery of counts and overall improvements over the next 3-7 days: in the interim continue aggressive supportive care - If intubation is needed during time, recommended as treatment of AML is aggressive and curative - COntinue holding Rydapt - ID following and await final of bronch - Discussed with and pulm team Physician Attest: I have completed the full history and physical and agree with above dictation, dictated as a scribe
[2021-07-13] MEDS: LEVOFLOXACIN 750MG-D5W PMX 750 MG in DEXTROSE/WATER 1 150ML.BAG IVPB SCH (17:24)
--- NOTE | 2021-07-13 18:06 | PN ---
PROGRESS NOTE DATE OF SERVICE: 07/13/2021 REASON FOR FOLLOWUP: Febrile neutropenia and pneumonia. INTERVAL HISTORY: Patient is afebrile. The patient is feeling slightly better. The patient still requiring BiPAP and is BiPAP dependent per the nursing staff. Unable to take anything by mouth. No chest pain. No worsening cough, no abdominal pain or any worsening diarrhea. PHYSICAL EXAMINATION: Blood pressure 106/74, pulse of 98, temperature is 99.2. She is 97% on 95% FiO2. General description is a middle-aged female lying in bed in no distress. Respiratory system: Unlabored breathing, decreased breath sounds in the base, with no wheeze. Heart S1, S2. Regular rate and rhythm. Abdomen soft, no tenderness. LABS: Hemoglobin 13.4, , BUN of 15, creatinine 1.10. DIAGNOSTIC IMPRESSION AND PLAN: Patient with febrile neutropenia in this patient with concern for pneumonia status post bronch while was negative. Cultures are currently pending. Patient is covered with cefepime, Levaquin and to continue and monitor clinical course closely. Son at the bedside, questions answered. MMODL / IJN: [id number] /
[2021-07-14] MEDS: DILTIAZEM 125 MG in SODIUM CHLORIDE 0.9% 100 ML IV SCH (02:42)
[2021-07-14 04:38] LABS: MCV 88.6 fL (80.0-100.0); RBC 2.08 m/uL (3.80-5.40); RDW 14.8 % (11.5-15.5)
[2021-07-14 04:53] LABS: INR 1.5 (<1.2); Partial Thromboplastin Time 30.1 sec (22.0-30.0); Prothrombin Time 14.8 sec (9.0-12.0)
[2021-07-14 05:08] LABS: WBC 0.1 k/uL (3.8-10.6)
[2021-07-14 05:11] LABS: HGB 6.4 gm/dL (11.4-16.0)
[2021-07-14 05:12] LABS: HCT 18.4 % (34.0-46.0); Platelet Count 13 k/uL (150-450)
[2021-07-14 05:21] LABS: Albumin 2.2 g/dL (3.5-5.0); Calcium 7.9 mg/dL (8.4-10.2); Magnesium 1.9 mg/dL (1.6-2.3); Phosphorus 2.5 mg/dL (2.5-4.5); Potassium 3.4 mmol/L (3.5-5.1); Total Bilirubin 0.3 mg/dL (0.2-1.3); Total Protein 4.9 g/dL (6.3-8.2)
[2021-07-14] MEDS: ACYCLOVIR SODIUM 500 MG in SODIUM CHLORIDE 0.9% 100 ML IVPB SCH ×3 (06:11→22:15)
[2021-07-14] MEDS: SODIUM CHLORIDE 0.9% 1,000 ML IV SCH (06:29)
[2021-07-14] MEDS: ALBUTEROL NEBULIZED 2.5 MG/3 ML INHALATION SCH ×4 (08:01→19:53)
[2021-07-14] MEDS: PANTOPRAZOLE 40 MG/10 ML VIAL IV SCH (10:15)
[2021-07-14] MEDS: CEFEPIME 2 GM in SODIUM CHLORIDE 0.9% 100 ML IVPB SCH ×2 (10:15→23:59)
[2021-07-14] MEDS: SALT AND SODA MOUTHWASH 1,000 ML PO SCH ×4 (10:16→23:06)
[2021-07-14] MEDS: CHOLESTYRAMINE (WITH SUGAR) 4 GM PACKET PO SCH ×2 (10:23→17:28)
[2021-07-14] MEDS: SODIUM CHLORIDE 0.9% IVPB SCH ×2 (10:33→22:32)
[2021-07-14] MEDS: POTASSIUM CHLORIDE 20 MEQ in WATER FOR INJECTION 1 100ML.BAG IVPB SCH ×4 (10:33→23:05)
[2021-07-14] MEDS: VORICONAZOLE IVPB SCH ×2 (10:33→22:32)
[2021-07-14] MEDS: POTAS-SOD-PHOS 278-164-250 MG 1 EACH PACKET PO SCH ×3 (10:34→23:20)
[2021-07-14] MEDS: PARoxetine 10 MG TAB PO SCH (10:35)
[2021-07-14] MEDS: ZINC SULFATE 220 MG CAP PO SCH (10:44)
[2021-07-14 11:27] LABS: HCT 23.8 % (34.0-46.0); MCH 30.4 pg (25.0-35.0); MCV 89.5 fL (80.0-100.0); Mean Platelet Volume 12.4; RBC 2.66 m/uL (3.80-5.40); RDW 14.7 % (11.5-15.5)
[2021-07-14 11:33] LABS: Platelet Count 16 k/uL (150-450); WBC 0.2 k/uL (3.8-10.6)
[2021-07-14 11:34] LABS: HGB 8.1 gm/dL (11.4-16.0)
--- NOTE | 2021-07-14 11:56 | P.PN ---
Subjective Progress Note Date: 07/14/21 Principal diagnosis: fevers Patient is a 61-year-old female recently diagnosed with AML who started induction chemotherapy here during admission from 06/19 through 07/02. Repeat pres ented with neutropenic fevers. Subsequently diagnosed with pneumonia. Pulmonary and ID following, admitted to heme/onc. Bronch completed 07/11. All cultures are negative to date. Diflucan broadened to voriconzole on 07/11 and Levquin added. 07/12 patient went into A fib with RVR and was started on a cardizem gtt. 07/13 not able to come off Bipap and currently dependent. Patient seen on bedside. Continues to be BiPAP dependent. Feeling very dry, thirsty, + Sob was struggling alot of Bipap General: Ill appearing, moderate distress, appears at stated age Derm: petchaia bilateral lower extremities, multiple areas of ecchymosis, warm, dry Head: atraumatic, normocephalic, symmetric Eyes: EOMI, no lid lag, anicteric sclera Mouth: no lip lesion, mucus membranes moist Cardiovascular: S1S2 reg, no murmur, positive posterior tibial pulse bilateral, Lungs: Rhonchi bilateral, 3 word conversational dyspnea, + accessory muscle use Abdominal: soft, nontender to palpation, no guarding, no appreciable organomegaly Ext: no gross muscle atrophy, trace edema, no contractures Neuro: CN II-XI grossly intact, no focal neuro deficits Psych: Alert, oriented, appropriate affect Neutropenic fevers Acute myelogenous leukemia Pancytopenia, chemo induced Pneumonia Acute hypoxic respiratory failure ARDS Diarrhea Sepsis without septic shock -Covid negative, legionella urine antigen negative, Aspergillus IgE negative - all cultures negative to date. - PCP stain is negative - bronch - ID, Pulm, Heme/pmc recs appreciated - fungatile screen pending - Continue with vanco, cefepime, voriconzaole, levaquin, and acyclovir - monitor fever profile - Fecal lactoferrin +, C diff negative, stool cultures negative - cholestyramine - s/p multiple units of pRBC and Plts - follow CBC and transfuse as indicated - Viral studies negative. A fib with RVR - goal HR <110 - Cardizem gtt - No anticoagulation due to thrombocytopenia and high risk of bleeding - tele - echo essential within normal limits - consider cardio consult if echo is abnormal Episode of tremors - EEG negative - CT head negative - neurology recs Moderate to severe MR Hypokalemia, resolved Hypomagnesemia, resolved Hypophosphatemia, resolved Hypocalcemia , resolved Poor over all prognosis. Awaiting direct AB stain results from [facility] [id number], will be back sat- Objective - Vital Signs Vital signs: Vital Signs Temp 99.4 F 07/14/21 09:33 Pulse 98 07/14/21 11:36 Resp 32 H 07/14/21 11:00 BP 122/69 07/14/21 11:00 Pulse Ox 96 07/14/21 11:00 Intake & Output 07/13/21 07/14/21 07/14/21 18:59 06:59 18:59 Intake Total 728.25 1019.167 840 Output Total 650 400 0 Balance 78.25 619.167 840 Weight 92 kg Intake: IV 535 340 530 0.9 210 240 20 Cefepime 2 gm In Sodium 100 Chloride 0.9% 100 ml @ 25 mls/hr IVPB Q12HR [facility] Rx #:[id number] Cefepime 2 gm In Sodium 100 Chloride 0.9% 100 ml @ 25 mls/hr IVPB Q8H [facility] Rx#: [id number] Potassium Chloride 20 meq 100 In Water For Injection 1 100ml.bag @ 50 mls/hr IVPB Q2H [facility] Rx#: [id number] Potassium Chloride 20 meq 100 In Water For Injection 1 100ml.bag @ 50 mls/hr IVPB Q2H [facility] Rx#: [id number] Sodium Chloride 0.9% 1, 225 60 000 ml @ 20 mls/hr IV . Q24H [facility] Rx#:[id number] Voriconazole 360 mg In 250 Sodium Chloride 0.9% 250 ml @ 125 mls/hr IVPB Q12HR [facility] Rx#:[id number] Intake, IV Titration 193.25 559.167 Amount Acyclovir Sodium 500 mg 100 200 In Sodium Chloride 0.9% 100 ml @ 100 mls/hr IVPB Q8H [facility] Rx#:[id number] Diltiazem 125 mg In 93.25 109.167 Sodium Chloride 0.9% 100 ml @ 5 MG/HR 5 mls/hr IV .Q24H [facility] Rx#:[id number] Voriconazole 360 mg In 250 Sodium Chloride 0.9% 250 ml @ 125 mls/hr IVPB Q12HR [facility] Rx#:[id number] Oral 120 Blood Product 310 Rc Irr As1 Unit 310 [id number] Output: Urine 650 400 0 Other: Voiding Method Bedside Commode External Catheter External Catheter External Catheter # Voids 1 0 - Labs CBC & Chem 7: 07/14/21 11:15 07/14/21 03:57 Labs: Abnormal Lab Results - Last 24 Hours (Table) 07/11/21 07/14/21 07/14/21 Range/Units 17:36 03:57 03:57 WBC 0.1 L* (3.8-10.6) k/uL RBC 2.08 L (3.80-5.40) m/uL Hgb 6.4 L* (11.4-16.0) gm/dL Hct 18.4 L* (34.0-46.0) % Plt Count 13 L* (150-450) k/uL PT 14.8 H (9.0-12.0) sec INR 1.5 H (<1.2) APTT 30.1 H (22.0-30.0) sec Potassium (3.5-5.1) mmol/L Chloride (98-107) mmol/L BUN (7-17) mg/dL Glucose (74-99) mg/dL Calcium (8.4-10.2) mg/dL Total Protein (6.3-8.2) g/dL Albumin (3.5-5.0) g/dL Crossmatch See Detail 07/14/21 07/14/21 Range/Units 03:57 11:15 WBC 0.2 L* (3.8-10.6) k/uL RBC 2.66 L (3.80-5.40) m/uL Hgb 8.1 L D (11.4-16.0) gm/dL Hct 23.8 L (34.0-46.0) % Plt Count 16 L* (150-450) k/uL PT (9.0-12.0) sec INR (<1.2) APTT (22.0-30.0) sec Potassium 3.4 L (3.5-5.1) mmol/L Chloride 110 H (98-107) mmol/L BUN 19 H (7-17) mg/dL Glucose 128 H (74-99) mg/dL Calcium 7.9 L (8.4-10.2) mg/dL Total Protein 4.9 L (6.3-8.2) g/dL Albumin 2.2 L (3.5-5.0) g/dL Crossmatch Microbiology - Last 24 Hours (Table) 07/10/21 05:52 Stool Culture - Final Stool 07/08/21 16:00 Blood Culture - Preliminary Blood No Growth after 120 hours 07/11/21 15:00 Gram Stain - Final Bronchial Washings - Random Bronchial Washings Culture - Final 07/09/21 13:00 Blood Culture - Preliminary Blood No Growth after 96 hours 07/07/21 09:01 Blood Culture - Final Blood No Growth after 144 hours 07/07/21 09:01 Blood Culture - Final Blood No Growth after 144 hours
[2021-07-14] MEDS ORDERED: FUROSEMIDE 10 MG/ML 4 ML VIAL IV STA (12:13)
--- NOTE | 2021-07-14 12:36 | XR ---
EXAMINATION TYPE: XR chest 1V portable DATE OF EXAM: 07/14/2021 CLINICAL HISTORY: Pneumonia progress study. TECHNIQUE: Single AP portable upright view of the chest is obtained. COMPARISON: Chest x-ray from one day earlier and older studies. FINDINGS: Stable right-sided PICC line. Persistent bilateral opacities increasing in the right lung base now silhouetting portion of right heart border. Osseous structures are intact IMPRESSION: Bilateral multifocal and diffuse opacities redemonstrated. Worsening opacity or consolida tion right lung base noted.
[2021-07-14 12:40] LABS: ABG Base Excess 2.4 mmol/L; ABG HCO3 28 mmol/L (21-25); ABG PCO2 47 mmHg (35-45); ABG PH 7.37 (7.35-7.45); ABG TCO2 29 mmol/L (19-24); Allen Test Performed? Yes
[2021-07-14 12:45] LABS: ABG PO2 55 mmHg (83-108)
[2021-07-14] MEDS: LORazepam 2 MG/ML INJ IV PRN (13:02)
[2021-07-14 14:38] LABS: Glucose,Whole Blood 152 mg/dL (75-99)
[2021-07-14] MEDS: D5-0.45% NACL WITH KCL 30MEQ/L 1,000 ML IV SCH (14:50)
[2021-07-14] MEDS ORDERED: CISATRACURIUM 2 MG/ML 5 ML VIAL IV ONE (15:47)
[2021-07-14] MEDS ORDERED: HYDROmorphone 0.5 MG/0.5 ML SYRINGE IVP PRN (16:15)
--- NOTE | 2021-07-14 16:17 | PN ---
PROGRESS NOTE DATE OF SERVICE: 07/14/2021 REASON FOR FOLLOWUP: Febrile neutropenia, pneumonia. INTERVAL HISTORY: The patient is afebrile. The patient remains BiPAP-dependent. The patient is hemodynamically stable, not on any pressor support. No vomiting or diarrhea has been reported. The patient denies having any chest pain. No worsening cough. No abdominal pain. PHYSICAL EXAMINATION: Blood pressure 142/75, pulse of 112, temperature 99.2. She is 96% on BiPAP. GENERAL DESCRIPTION: General description is a middle-aged female lying in bed in no distress. RESPIRATORY SYSTEM: Unlabored breathing. Decreased intensity of breath sounds. No wheeze. HEART: S1, S2. Regular rate and rhythm. ABDOMEN: Soft. No tenderness. LABS: Bronch culture so far negative. Blood culture has been negative. DIAGNOSTIC IMPRESSION AND PLAN: Patient with febrile neutropenia with acute respiratory failure, evidence of multifocal opacities. Culture has been negative so far. Question of possible ARDS pattern. The patient is covered with broad-spectrum antibiotic; to continue in the form of cefepime, Levaquin. Prognosis remains guarded. Family at the bedside. Questions were answered. MMODL / IJN: [id number] /
--- NOTE | 2021-07-14 16:25 | XR ---
EXAMINATION TYPE: XR chest 1V portable DATE OF EXAM: 07/14/2021 Comparison: 07/14/2021 Clinical History: 61 year-old female tube placement Findings: ET tube satisfactory. NG tube courses below the diaphragm. Heart upper limits of normal in size. Diff use bilateral airspace opacity persists. Right PICC tip at the upper SVC. No sizable effusion. No pne umothorax seen. Impression: 1. Satisfactory ET and NG tubes. 2. Continued diffuse bilateral airspace disease.
--- NOTE | 2021-07-14 16:42 | P.PN ---
Subjective Progress Note Date: 07/14/21 07/14/2021, I'm seeing this patient for a follow-up. I saw her initially this morning. The patient was having some difficulties with her BiPAP as of time. she was on a bipap at a pressure of 12/6 cm of water with an FiO2 of 80%. Noted the patient received a unit of packed RBC earlier and a repeat chest x-ray showed interval worsening of the fluffy and another bilateral pulmonary infiltrates. The blood gases showed a pH of 7.37 with a pCO2 of 47 and pO2 of 55. The patient was given a dose of Lasix and throughout the day her condition her condition progressively got worse and the patient developed worsening hypoxemia and diminished level of consciousness and at that point, I decide to go ahead and intubate the patient and placed on a mechanical ventilation. At this point in time, the patient is an assist-control mode at the rate of 28 with a tidal volume of 400 and FiO2 of 155. She is sedated with propofol. Dose of propofol is being adjusted and titrated to establish an adequate sedation. The patient has tolerated the procedure without any major difficulties. No hypoxemia during the procedure. Lowest pulse ox was in the mid/low 80s and the patient's oxygenation improved immediately postintubation. Meanwhile, she is still on the same antibiotic coverage and we do not have the final diagnoses symptoms are bilateral pneumonia. All of the cultures are negative including the bronchioloalveolar lavage was collected earlier. She remains on a combination of cefepime, Levaquin, vancomycin and voriconazole and acyclovir. The vancomycin level from 07/12/2021 was 33.2. The patient remains neutropenic. The white cell count is at 0.2 with hemoglobin of 8.1. Platelet count is at 16. Renal function the rest of electrolytes are all within normal limits. No bleeding complications. No other significant events overnight. The patient's IV fluids are currently running at [facility]. Hematology oncology is on the case. Infectious diseases also on the case. She has a double-lumen PICC line catheter and arterial line was also established. Objective - Vital Signs Vital signs: Vital Signs Temp 99.2 F 07/14/21 12:00 Pulse 114 H 07/14/21 15:00 Resp 35 H 07/14/21 15:00 BP 128/75 07/14/21 15:00 Pulse Ox 85 L 07/14/21 15:00 Intake & Output 07/13/21 07/14/21 07/14/21 18:59 06:59 18:59 Intake Total 728.25 1104.136 1698 Output Total 298 299 1370 Balance 78.25 619.167 -120 Weight 92 kg Intake: IV 535 340 730 0.9 210 240 20 Cefepime 2 gm In Sodium 100 Chloride 0.9% 100 ml @ 25 mls/hr IVPB Q12HR [facility] Rx #:[id number] Cefepime 2 gm In Sodium 100 Chloride 0.9% 100 ml @ 25 mls/hr IVPB Q8H [facility] Rx#: [id number] Potassium Chloride 20 meq 100 In Water For Injection 1 100ml.bag @ 50 mls/hr IVPB Q2H [facility] Rx#: [id number] Potassium Chloride 20 meq 300 In Water For Injection 1 100ml.bag @ 50 mls/hr IVPB Q2H [facility] Rx#: [id number] Sodium Chloride 0.9% 1, 225 60 000 ml @ 20 mls/hr IV . Q24H [facility] Rx#:[id number] Voriconazole 360 mg In 250 Sodium Chloride 0.9% 250 ml @ 125 mls/hr IVPB Q12HR [facility] Rx#:[id number] Intake, IV Titration 193.25 559.167 Amount Acyclovir Sodium 500 mg 100 200 In Sodium Chloride 0.9% 100 ml @ 100 mls/hr IVPB Q8H [facility] Rx#:[id number] Diltiazem 125 mg In 93.25 109.167 Sodium Chloride 0.9% 100 ml @ 5 MG/HR 5 mls/hr IV .Q24H [facility] Rx#:[id number] Voriconazole 360 mg In 250 Sodium Chloride 0.9% 250 ml @ 125 mls/hr IVPB Q12HR [facility] Rx#:[id number] Oral 120 Blood Product 310 Rc Irr As1 Unit 310 [id number] Output: Urine 997 826 3851 Other: Voiding Method Bedside Commode External Catheter External Catheter External Catheter # Voids 1 0 - Exam Gen. appearance the patient is sedated, intubated on a mechanical ventilator. Orogastric and orotracheal tube are both in place. Head exam was generally normal. There was no scleral icterus or corneal arcus. Mucous membranes were moist. Neck was supple and without jugular venous distension, thyromegaly, or carotid bruits. Carotids were easily palpable bilaterally. There was no adenopathy. Lungs sounds are diminished and there are diffuse rhonchi heard throughout the lung his bilaterally. Otherwise the breath sounds are equal for now. No significant wheezes. Cardiac exam revealed the PMI to be normally situated and sized. The rhythm was regular and no extrasystoles were noted during several minutes of auscultation. The first and second heart sounds were normal and physiologic splitting of the second heart sound was noted. There were no murmurs, rubs, clicks, or gallops. Abdominal exam revealed normal bowel sounds. The abdomen was soft, non-tender, and without masses, organomegaly, or appreciable enlargement of the abdominal aorta. Examination of the extremities revealed easily palpable radial, femoral and pedal pulses. There was no cyanosis, clubbing or edema. Examination of the skin revealed no evidence of significant rashes, suspicious appearing nevi or other concerning lesions. The patient has petechia in the lower extremities bilaterally related to underlying thrombocytopenia. Few areas of bruising, not extensive. Neurologically, the patient is sedated currently on propofol. No focal neurolo gical deficits. The patient was quite lethargic and obtunded prior to the intubation process. There was a recorded reactive to light. - Labs CBC & Chem 7: 07/14/21 11:15 07/14/21 03:57 Labs: Abnormal Lab Results - Last 24 Hours (Table) 07/11/21 07/14/21 07/14/21 Range/Units 17:36 03:57 03:57 WBC 0.1 L* (3.8-10.6) k/uL RBC 2.08 L (3.80-5.40) m/uL Hgb 6.4 L* (11.4-16.0) gm/dL Hct 18.4 L* (34.0-46.0) % Plt Count 13 L* (150-450) k/uL PT 14.8 H (9.0-12.0) sec INR 1.5 H (<1.2) APTT 30.1 H (22.0-30.0) sec ABG pCO2 (35-45) mmHg ABG pO2 (83-108) mmHg ABG HCO3 (21-25) mmol/L ABG Total CO2 (19-24) mmol/L ABG O2 Saturation (94-97) % Potassium (3.5-5.1) mmol/L Chloride (98-107) mmol/L BUN (7-17) mg/dL Glucose (74-99) mg/dL POC Glucose (mg/dL) (75-99) mg/dL Calcium (8.4-10.2) mg/dL Total Protein (6.3-8.2) g/dL Albumin (3.5-5.0) g/dL Crossmatch See Detail 07/14/21 07/14/21 07/14/21 Range/Units 03:57 11:15 12:31 WBC 0.2 L* (3.8-10.6) k/uL RBC 2.66 L (3.80-5.40) m/uL Hgb 8.1 L D (11.4-16.0) gm/dL Hct 23.8 L (34.0-46.0) % Plt Count 16 L* (150-450) k/uL PT (9.0-12.0) sec INR (<1.2) APTT (22.0-30.0) sec ABG pCO2 47 H (35-45) mmHg ABG pO2 55 L* (83-108) mmHg ABG HCO3 28 H (21-25) mmol/L ABG Total CO2 29 H (19-24) mmol/L ABG O2 Saturation 88.0 L (94-97) % Potassium 3.4 L (3.5-5.1) mmol/L Chloride 110 H (98-107) mmol/L BUN 19 H (7-17) mg/dL Glucose 128 H (74-99) mg/dL POC Glucose (mg/dL) (75-99) mg/dL Calcium 7.9 L (8.4-10.2) mg/dL Total Protein 4.9 L (6.3-8.2) g/dL Albumin 2.2 L (3.5-5.0) g/dL Crossmatch 07/14/21 Range/Units 14:36 WBC (3.8-10.6) k/uL RBC (3.80-5.40) m/uL Hgb (11.4-16.0) gm/dL Hct (34.0-46.0) % Plt Count (150-450) k/uL PT (9.0-12.0) sec INR (<1.2) APTT (22.0-30.0) sec ABG pCO2 (35-45) mmHg ABG pO2 (83-108) mmHg ABG HCO3 (21-25) mmol/L ABG Total CO2 (19-24) mmol/L ABG O2 Saturation (94-97) % Potassium (3.5-5.1) mmol/L Chloride (98-107) mmol/L BUN (7-17) mg/dL Glucose (74-99) mg/dL POC Glucose (mg/dL) 152 H (75-99) mg/dL Calcium (8.4-10.2) mg/dL Total Protein (6.3-8.2) g/dL Albumin (3.5-5.0) g/dL Crossmatch Microbiology - Last 24 Hours (Table) 07/09/21 13:00 Blood Culture - Preliminary Blood No Growth after 120 hours 07/11/21 15:00 Legionella Culture - Preliminary Bronchial Washings - Random 07/10/21 05:52 Stool Culture - Final Stool 07/08/21 16:00 Blood Culture - Preliminary Blood No Growth after 120 hours 07/11/21 15:00 Gram Stain - Final Bronchial Washings - Random Bronchial Washings Culture - Final Assessment and Plan Plan: 1acute bilateral pneumonia with rapid progression of bilateral pulmonary infiltrates and the patient currently has extensive bilateral airspace disease and coarse interstitial pulmonary infiltrates, consider opportunistic infections especially with her underlying immunosuppression. The bronchioloalveolar lavage has been negative thus far. PCP stain of been negative. Legionella urine antigen was negative. Lavage with viral screen of the bronchioloalveolar lavage has been negative. Over 19 testing was negative. The patient's regular bacterial cultures and the fungal cultures are negative. She remains on broad- spectrum antibiotics. She felt BiPAP after a few days of support and currently she is intubated on mechanical ventilator. The patient was intubated on 07/14/2021. 2 acute hypoxic respiratory failure secondary to above and the patient has developed worsening pneumonia and hypoxemic respiratory failure 3 shortness of breath secondary to but not limited to above mentioned pneumonia. 4 acute myeloid leukemia post induction chemotherapy, remains leukopenic and presents of the neck 5 pancytopenia, received another 2 units of packed RBC this morning 6 episodic fever currently under investigation. Cultures are negative and the patient is covered with broad-spectrum antibiotics. The patient is a PICC line in the right upper extremity. Afebrile for the past 24 hours 7 electrolytes disturbance, being managed and replaced 8 diarrhea, stool for C. diff has been negative, still having some diarrhea Plan Keep the patient sedated with propofol Postintubation chest x-ray shows bilateral pneumonia and the patient has adequate positioning of the ET tube and orogastric tube. Continue broad-spectrum antibiotic coverage pending further cultures Received a unit of packed RBC today. Associated dose of Lasix 40 mg of push 1 Remains leukopenic Echocardiogram to be completed and the patient is a preserved LV function with an ejection fraction of 50-55%. IV fluids at KVO for now Initiate enteral feeding for nutritional support Condition is critical. Case was discussed with the at the bedside. Case was also discussed with hematology oncology and infectious disease. Critically care evaluation was done more than 30 minutes. Time with Patient: Greater than 30
--- NOTE | 2021-07-14 16:44 | P.PCN ---
Date of Procedure: 07/14/21 Preoperative Diagnosis: Bilateral pneumonia and acute hypoxic respiratory failure Postoperative Diagnosis: Bilateral pneumonia and acute hypoxic respiratory failure Procedure(s) Performed: 1 intubation 2 insertion of an arterial line Anesthesia: local Surgeon: Felix Sanabria Estimated Blood Loss (ml): 0 Pathology: none sent Condition: critical Disposition: ICU Operative Findings: Intubation: Indication: Respiratory compromise. A time-out was completed verifying correct patient, procedure, site, positioning, and implant(s) or special equipment if applicable. The patient was positioned appropriately and a #[8] endotracheal tube was plac ed under direct laryngoscopy. The tube was anchored at 22 cm at the teeth. Correct placement was confirmed by presence of bilateral breath sounds without air sounds in the abdomen on auscultation. An end-tidal CO2 monitor was also used to confirm tracheal placement of the ET tube. A chest x-ray was ordered to assess for pneumothorax and verify endotracheal tube placement. The patient tolerated the procedure well and there were no complications. Arterial line insertion Indication: Hemodynamic monitoring. A time-out was completed verifying correct patient, procedure, site, positioning, and implant(s) or special equipment if applicable. Allens test was performed to ensure adequate perfusion. The patients left wrist was prepped and draped in sterile fashion. 1% Lidocaine was used to anesthetize the area. An 18G Arrow arterial line was introduced into the left radial artery. The catheter was threaded over the guide wire and the needle was removed with appropriate pulsatile blood return. Blood loss was minimal. The catheter was then sutured in place to the skin and a sterile dressing applied. Perfusion to the extremity distal to the point of catheter insertion was checked and found to be adequate. The patient tolerated the procedure well and there were no complications.
[2021-07-14 16:58] LABS: ABG HCO3 29 mmol/L (21-25); ABG PCO2 51 mmHg (35-45); ABG PH 7.37 (7.35-7.45); ABG PO2 210 mmHg (83-108); ABG TCO2 31 mmol/L (19-24); Allen Test Performed? Yes
[2021-07-14] MEDS: LEVOFLOXACIN 750MG-D5W PMX 750 MG in DEXTROSE/WATER 1 150ML.BAG IVPB SCH (18:32)
--- NOTE | 2021-07-14 19:11 | P.PN ---
Subjective Progress Note Date: 07/14/21 Principal diagnosis: febrile neutropenia remains a-febrile, respiratory status continues to increase. Chest xray appears to have bilateral pneumonia, all cultures negative Objective - Vital Signs Vital signs: Vital Signs Temp 98.4 F 07/14/21 07:15 Pulse 103 H 07/14/21 07:15 Resp 34 H 07/14/21 07:15 BP 116/68 07/14/21 07:15 Pulse Ox 88 L 07/14/21 07:15 Intake & Output 07/13/21 07/14/21 07/14/21 18:59 06:59 18:59 Intake Total 728.25 1019.167 20 Output Total 650 400 Balance 78.25 619.167 20 Weight 92 kg Intake: IV 535 340 20 0.9 210 240 20 Cefepime 2 gm In Sodium 100 Chloride 0.9% 100 ml @ 25 mls/hr IVPB Q8H [facility] Rx#: [id number] Potassium Chloride 20 meq 100 In Water For Injection 1 100ml.bag @ 50 mls/hr IVPB Q2H [facility] Rx#: [id number] Sodium Chloride 0.9% 1, 225 000 ml @ 20 mls/hr IV . Q24H [facility] Rx#:[id number] Intake, IV Titration 193.25 559.167 Amount Acyclovir Sodium 500 mg 100 200 In Sodium Chloride 0.9% 100 ml @ 100 mls/hr IVPB Q8H [facility] Rx#:[id number] Diltiazem 125 mg In 93.25 109.167 Sodium Chloride 0.9% 100 ml @ 5 MG/HR 5 mls/hr IV .Q24H [facility] Rx#:[id number] Voriconazole 360 mg In 250 Sodium Chloride 0.9% 250 ml @ 125 mls/hr IVPB Q12HR [facility] Rx#:[id number] Oral 120 Blood Product 0 Rc Irr As1 Unit 0 [id number] Output: Urine 650 400 Other: Voiding Method Bedside Commode External Catheter External Catheter # Voids 1 - Exam - EENT Eyes: Present: anicteric sclerae, EOMI ENT: Present: hearing grossly normal, normal oropharynx - Respiratory Respiratory:DIntubated - Cardiovascular Rhythm: Tachy Heart sounds: normal: S1, S2 - Peripheral edema leg Peripheral Edema: bilateral: None - Gastrointestinal General gastrointestinal: Present: normal bowel sounds, soft - Integumentary Integumentary: Present: normal turgor, pale, areas of eccymosis on forehead and arms, lower extremity RLE petechaei\y. Also petechaei rash has extended up to thighs - Labs CBC & Chem 7: 07/14/21 11:15 07/14/21 03:57 Labs: Abnormal Lab Results - Last 24 Hours (Table) 07/11/21 07/14/21 07/14/21 Range/Units 17:36 03:57 03:57 WBC 0.1 L* (3.8-10.6) k/uL RBC 2.08 L (3.80-5.40) m/uL Hgb 6.4 L* (11.4-16.0) gm/dL Hct 18.4 L* (34.0-46.0) % Plt Count 13 L* (150-450) k/uL PT 14.8 H (9.0-12.0) sec INR 1.5 H (<1.2) APTT 30.1 H (22.0-30.0) sec Potassium (3.5-5.1) mmol/L Chloride (98-107) mmol/L BUN (7-17) mg/dL Glucose (74-99) mg/dL Calcium (8.4-10.2) mg/dL Total Protein (6.3-8.2) g/dL Albumin (3.5-5.0) g/dL Crossmatch See Detail 07/14/21 Range/Units 03:57 WBC (3.8-10.6) k/uL RBC (3.80-5.40) m/uL Hgb (11.4-16.0) gm/dL Hct (34.0-46.0) % Plt Count (150-450) k/uL PT (9.0-12.0) sec INR (<1.2) APTT (22.0-30.0) sec Potassium 3.4 L (3.5-5.1) mmol/L Chloride 110 H (98-107) mmol/L BUN 19 H (7-17) mg/dL Glucose 128 H (74-99) mg/dL Calcium 7.9 L (8.4-10.2) mg/dL Total Protein 4.9 L (6.3-8.2) g/dL Albumin 2.2 L (3.5-5.0) g/dL Crossmatch Microbiology - Last 24 Hours (Table) 07/08/21 16:00 Blood Culture - Preliminary Blood No Growth after 120 hours 07/10/21 05:52 Stool Culture - Final Stool 07/11/21 15:00 Gram Stain - Final Bronchial Washings - Random Bronchial Washings Culture - Final 07/09/21 13:00 Blood Culture - Preliminary Blood No Growth after 96 hours 07/07/21 09:01 Blood Culture - Final Blood No Growth after 144 hours 07/07/21 09:01 Blood Culture - Final Blood No Growth after 144 hours Assessment and Plan (1) Neutropenic fever Current Visit: Yes Status: Acute Code(s): D70.9 - NEUTROPENIA, UNSPECIFIED; R50.81 - FEVER PRESENTING WITH CONDITIONS CLASSIFIED ELSEWHERE SNOMED Code(s): 686393871 (2) AML (acute myeloid leukemia) Current Visit: No Status: Acute Priority: High Code(s): C92.00 - ACUTE MYELOBLASTIC LEUKEMIA, NOT HAVING ACHIEVED REMISSION SNOMED Code(s): 02375945 (3) Anemia Current Visit: No Status: Acute Priority: High Code(s): D64.9 - ANEMIA, UNSPECIFIED SNOMED Code(s): 200099040 (4) Thrombocytopenia Current Visit: No Status: Acute Priority: High Code(s): D69.6 - THROMBOCYTOPENIA, UNSPECIFIED SNOMED Code(s): 540605633 (5) Hypokalemia Current Visit: Yes Status: Acute Code(s): E87.6 - HYPOKALEMIA SNOMED Code(s): 42767146 (6) Hypomagnesemia Current Visit: Yes Status: Acute Code(s): E83.42 - HYPOMAGNESEMIA SNOMED Code(s): 525196893 (7) Hypophosphatemia Current Visit: Yes Status: Acute Code(s): E83.39 - OTHER DISORDERS OF PHOSPHORUS METABOLISM SNOMED Code(s): 3089047 (8) Hypocalcemia Current Visit: Yes Status: Acute Code(s): E83.51 - HYPOCALCEMIA SNOMED Code(s): 2528123 (9) Acute respiratory insufficiency Current Visit: Yes Status: Acute Code(s): R06.89 - OTHER ABNORMALITIES OF BREATHING SNOMED Code(s): 483735333 (10) Hospital-acquired pneumonia Current Visit: Yes Status: Acute Code(s): J18.9 - PNEUMONIA, UNSPECIFIED ORGANISM; Y95 - NOSOCOMIAL CONDITION SNOMED Code(s): 098010452 (11) Hypotension Current Visit: Yes Status: Acute Code(s): I95.9 - HYPOTENSION, UNSPECIFIED SNOMED Code(s): 04631535 (12) Sepsis Current Visit: Yes Status: Acute Code(s): A41.9 - SEPSIS, UNSPECIFIED ORGANISM SNOMED Code(s): 73855504 (13) Respiratory failure Current Visit: Yes Status: Acute Code(s): J96.90 - RESPIRATORY FAILURE, UNSP, UNSP W HYPOXIA OR HYPERCAPNIA SNOMED Code(s): 568416635 (14) Sepsis Current Visit: No Status: Acute Priority: High Code(s): A41.9 - SEPSIS, UNSPECIFIED ORGANISM SNOMED Code(s): 11113157 Plan: Assessment and Recommendations: Febrile Neutropenia: improved - afebrile - Broad Spectrum ABX, AntiFungal, Anti VIRAL - Discussed with Dr. Marcano and ashlee add vancomycin back - Premedicate prior with benadryl - ID Following - COmplicated with possible pneumonia, pulmonary following - ?additional coverage, still febrile Acute Respiratory Failure: - In the care of ICU and receiving HI-FLOW oxygen 9Liters - Transferred on 07/11/21 - Bronchoscopy 07.11.21 Septic Shock: - Under care of ICU - Should recover with aggressive support care and when counts recover, expected within the next 3-7 days AML: - Status Post induction with 7+3, 06/23/21 - We are on Day 19. - Started on Rydapt 50mg po BID x14 days. Started on 07/03/21. HELD on 07/11/21 - 27% misc. Fevers and potential worsening lung therefore will be held moving forward until improved from current situation - Aggressive treatment and Proactive supportive care Diarrhea: - Олегran added and recheck stool studies - Stool studies negative, anti-diarrheals ok - No abdominal rigidity or tenderness on exam, ok to continue PO intake to toleration Hypokalemia:Improved - Supplemented - TMS monitoring. Other electrolyte deficiencies: - Supp prn PLAN: - Intubated today - Discussed with Pulmonary in detail - Broaden antibiotics - Long discussion with patients family
[2021-07-14] MEDS: CHLORHEXIDINE GLUCONATE 15 ML CUP MUCOUS MEM SCH (23:05)
[2021-07-15] MEDS: POTASSIUM CHLORIDE 20 MEQ in WATER FOR INJECTION 1 100ML.BAG IVPB SCH (01:35)
[2021-07-15] MEDS ORDERED: SODIUM CHLORIDE 0.9% 2,000 ML IV ONE (02:05)
[2021-07-15] MEDS: DILTIAZEM 125 MG in SODIUM CHLORIDE 0.9% 100 ML IV SCH ×3 (04:54→20:45)
[2021-07-15 05:10] LABS: Glucose,Whole Blood 124 mg/dL (75-99)
[2021-07-15 05:15] LABS: ABG Base Excess 5.2 mmol/L; ABG HCO3 29 mmol/L (21-25); ABG Oxygen Saturation 97.7 % (94-97); ABG PCO2 40 mmHg (35-45); ABG PH 7.47 (7.35-7.45); ABG PO2 85 mmHg (83-108); ABG TCO2 30 mmol/L (19-24)
[2021-07-15 05:31] LABS: Allen Test Performed? no
[2021-07-15 05:35] LABS: MCH 29.9 pg (25.0-35.0); MCHC 33.2 g/dL (31.0-37.0); MCV 90.1 fL (80.0-100.0); Mean Platelet Volume 11.9; RBC 2.22 m/uL (3.80-5.40); RDW 14.9 % (11.5-15.5)
[2021-07-15 05:42] LABS: WBC 0.1 k/uL (3.8-10.6)
[2021-07-15 05:47] LABS: HGB 6.6 gm/dL (11.4-16.0)
[2021-07-15 05:48] LABS: Platelet Count 18 k/uL (150-450)
[2021-07-15 06:24] LABS: Calcium 7.6 mg/dL (8.4-10.2); Magnesium 1.8 mg/dL (1.6-2.3); Phosphorus 1.8 mg/dL (2.5-4.5); Potassium 3.8 mmol/L (3.5-5.1); Total Bilirubin 0.5 mg/dL (0.2-1.3); Total Protein 4.5 g/dL (6.3-8.2)
[2021-07-15] MEDS: D5-0.45% NACL WITH KCL 30MEQ/L 1,000 ML IV SCH (06:49)
[2021-07-15] MEDS: ACYCLOVIR SODIUM 500 MG in SODIUM CHLORIDE 0.9% 100 ML IVPB SCH ×3 (06:49→21:30)
[2021-07-15] MEDS ORDERED: POTASSIUM BICARBONATE/CIT AC 20 MEQ TABLET.EFF NG-TUBE SCH (07:00)
[2021-07-15] MEDS: ALBUTEROL NEBULIZED 2.5 MG/3 ML INHALATION SCH ×4 (08:00→19:56)
--- NOTE | 2021-07-15 08:20 | XR ---
EXAMINATION TYPE: XR chest 1V portable DATE OF EXAM: 07/15/2021 COMPARISON: 07/14/2021 HISTORY: SOB, Follow Up FINDINGS: Indwelling tubes and catheters are unchanged. Diffuse bilateral infiltrates persist greatest at the right lung base. No significant change apprecia chago. Stable appearance of the cardio-mediastinal structures at this time. Pleural effusion unchanged. IMPRESSION: 1. Stable portable chest. Clinical correlation and follow up until resolution is recommended.
--- NOTE | 2021-07-15 08:52 | P.PN ---
Subjective Progress Note Date: 07/15/212020, the patient is intubated on a mechanical ventilator. Based on her worsening rest or status, had to put the patient on mechanical ventilator yesterday and currently she is also sedated on propofol which is currently running at 25 mcg/kg per minute. She remains on a mechanical ventilator on assist control mode at the rate of 24 with a tidal volume of 400 and FiO2 of 60% with a PEEP of 15. Peak airway pressure is 26. Her blood gases from today shows a pH of 7.47 with a pCO2 of 40 and pO2 of 85. No significant orotracheal secretions. Chest x-ray showing diffuse breath and pulmonary infiltrates. Orotracheal tube and orogastric tube are both in a good location. Despite being on some sedation, the patient is easily arousable and she can't communicate. She is however, comfortable and she is hemodynamically stable on no pressors. In fact, she had a run of atrial fibrillation yesterday with subsequently converted to normal sinus rhythm. Cardizem is still running at 10 mg an hour. She is an IV fluids running at 20 mL an hour. She is having IV fluids in the form of D5 half-normal at the rate of chronic an hour. Bronchial lavage collected earlier came back all negative. The vital cultures came back negative. The Gram stain, bacterial cultures, fungal cultures, AFB, Legionella, and PCP came back all negative. The patient remains on the same antibiotic coverage. She is afebrile. Enteral feeding for nutritional support was initiated today. Meanwhile, the patient's hematologic profile is still abnormal. White cell count of 0.1. Hemoglobin dropped down to 6.6 and the patient will be receiving packed RBC and the platelet count is at 18. No bleeding complications. She is having some limited amount of bloody secretions from her orotracheal tube. The fluid balance over the past 24 hours has been in the order of positive 697 mL. she did receive Lasix earlier yesterday morning. Following that, overnight, she had dropped her urine output and I had to give it a total of 2 L of IV fluid bolus which obviously improved her urine output. She has a double-lumen PICC in her right upper extremity and she also has arterial line in place. Objective - Vital Signs Vital signs: Vital Signs Temp 97.9 F 07/15/21 04:00 Pulse 93 07/15/21 08:24 Resp 28 H 07/15/21 06:00 BP 99/54 07/14/21 17:00 Pulse Ox 97 07/15/21 06:00 Intake & Output 07/14/21 07/15/21 07/15/21 18:59 06:59 18:59 Intake Total 1147.84 2589.896 Output Total 1845 335 Balance -697.16 2254.896 Intake: IV 836 2430 0.9 20 0.9 carriers 40 200 Cefepime 2 gm In Sodium 100 Chloride 0.9% 100 ml @ 25 mls/hr IVPB Q12HR [facility] Rx #:[id number] D5-0.45% NaCl with KCl 60 200 30Meq/l 1,000 ml @ 20 mls /hr IV .Q24H [facility] Rx#: [id number] Potassium Chloride 20 meq 300 In Water For Injection 1 100ml.bag @ 50 mls/hr IVPB Q2H [facility] Rx#: [id number] Sodium Chloride 0.9% 1, 60 000 ml @ 20 mls/hr IV . Q24H [facility] Rx#:[id number] Sodium Chloride 0.9% 2, 2000 000 ml @ 999 mls/hr IV . Q2H1M [facility] Rx#:[id number] Voriconazole 360 mg In 250 Sodium Chloride 0.9% 250 ml @ 125 mls/hr IVPB Q12HR [facility] Rx#:[id number] arterial line 6 30 Intake, IV Titration 1.84 159.896 Amount propofoL 1,000 mg In 1.84 159.896 Empty Bag 1 bag @ Titrate IV .Q0M [facility] Rx#: [id number] Blood Product 310 Rc Irr As1 Unit 310 [id number] Output: Urine 1845 335 Other: Voiding Method Indwelling Catheter Indwelling Catheter # Voids 0 ABP, PAP, CO, CI - Last Documented Arterial Blood Pressure 91/54 - Exam Gen. appearance the patient is sedated, intubated on a mechanical ventilator. Orogastric and orotracheal tube are both in place. Head exam was generally normal. There was no scleral icterus or corneal arcus. Mucous membranes were moist. Neck was supple and without jugular venous distension, thyromegaly, or carotid bruits. Carotids were easily palpable bilaterally. There was no adenopathy. Lungs sounds are diminished and there are diffuse rhonchi heard throughout the lung his bilaterally. Otherwise the breath sounds are equal for now. No significant wheezes. Cardiac exam revealed the PMI to be normally situated and sized. The rhythm was regular and no extrasystoles were noted during several minutes of auscultation. The first and second heart sounds were normal and physiologic splitting of the second heart sound was noted. There were no murmurs, rubs, clicks, or gallops. Abdominal exam revealed normal bowel sounds. The abdomen was soft, non-tender, and without masses, organomegaly, or appreciable enlargement of the abdominal aorta. Examination of the extremities revealed easily palpable radial, femoral and ped al pulses. There was no cyanosis, clubbing or edema. Examination of the skin revealed no evidence of significant rashes, suspicious appearing nevi or other concerning lesions. The patient has petechia in the lower extremities bilaterally related to underlying thrombocytopenia. Few areas of bruising, not extensive. Neurologically, the patient is sedated currently on propofol. No focal neurological deficits. The patient was quite lethargic and obtunded prior to the intubation process. There was a recorded reactive to light. - Labs CBC & Chem 7: 07/15/21 05:10 07/15/21 05:10 Labs: Abnormal Lab Results - Last 24 Hours (Table) 07/11/21 07/14/21 07/14/21 Range/Units 17:36 11:15 12:31 WBC 0.2 L* (3.8-10.6) k/uL RBC 2.66 L (3.80-5.40) m/uL Hgb 8.1 L D (11.4-16.0) gm/dL Hct 23.8 L (34.0-46.0) % Plt Count 16 L* (150-450) k/uL ABG pH (7.35-7.45) ABG pCO2 47 H (35-45) mmHg ABG pO2 55 L* (83-108) mmHg ABG HCO3 28 H (21-25) mmol/L ABG Total CO2 29 H (19-24) mmol/L ABG O2 Saturation 88.0 L (94-97) % Chloride (98-107) mmol/L BUN (7-17) mg/dL Creatinine (0.52-1.04) mg/dL Glucose (74-99) mg/dL POC Glucose (mg/dL) (75-99) mg/dL Calcium (8.4-10.2) mg/dL Phosphorus (2.5-4.5) mg/dL Total Protein (6.3-8.2) g/dL Albumin (3.5-5.0) g/dL Crossmatch See Detail 07/14/21 07/14/21 07/15/21 Range/Units 14:36 16:50 05:06 WBC (3.8-10.6) k/uL RBC (3.80-5.40) m/uL Hgb (11.4-16.0) gm/dL Hct (34.0-46.0) % Plt Count (150-450) k/uL ABG pH (7.35-7.45) ABG pCO2 51 H (35-45) mmHg ABG pO2 210 H (83-108) mmHg ABG HCO3 29 H (21-25) mmol/L ABG Total CO2 31 H (19-24) mmol/L ABG O2 Saturation 100.0 H (94-97) % Chloride (98-107) mmol/L BUN (7-17) mg/dL Creatinine (0.52-1.04) mg/dL Glucose (74-99) mg/dL POC Glucose (mg/dL) 152 H 124 H (75-99) mg/dL Calcium (8.4-10.2) mg/dL Phosphorus (2.5-4.5) mg/dL Total Protein (6.3-8.2) g/dL Albumin (3.5-5.0) g/dL Crossmatch 07/15/21 07/15/21 07/15/21 Range/Units 05:10 05:10 05:13 WBC 0.1 L* (3.8-10.6) k/uL RBC 2.22 L (3.80-5.40) m/uL Hgb 6.6 L* D (11.4-16.0) gm/dL Hct 20.0 L (34.0-46.0) % Plt Count 18 L* (150-450) k/uL ABG pH 7.47 H (7.35-7.45) ABG pCO2 (35-45) mmHg ABG pO2 (83-108) mmHg ABG HCO3 29 H (21-25) mmol/L ABG Total CO2 30 H (19-24) mmol/L ABG O2 Saturation 97.7 H (94-97) % Chloride 113 H (98-107) mmol/L BUN 20 H (7-17) mg/dL Creatinine 1.05 H (0.52-1.04) mg/dL Glucose 126 H (74-99) mg/dL POC Glucose (mg/dL) (75-99) mg/dL Calcium 7.6 L (8.4-10.2) mg/dL Phosphorus 1.8 L (2.5-4.5) mg/dL Total Protein 4.5 L (6.3-8.2) g/dL Albumin 2.0 L (3.5-5.0) g/dL Crossmatch Microbiology - Last 24 Hours (Table) 07/08/21 16:00 Blood Culture - Final Blood No Growth after 144 hours 07/09/21 13:00 Blood Culture - Preliminary Blood No Growth after 120 hours 07/11/21 15:00 Legionella Culture - Preliminary Bronchial Washings - Random 07/10/21 05:52 Stool Culture - Final Stool Assessment and Plan Plan: 1acute bilateral pneumonia with rapid progression of bilateral pulmonary infiltrates and the patient currently has extensive bilateral airspace disease and coarse interstitial pulmonary infiltrates, consider opportunistic infections especially with her underlying immunosuppression. The bronchioloalveolar lavage has been negative thus far. PCP stain of been negative. Legionella urine antigen was negative. Lavage with viral screen of the bronchioloalveolar lavage has been negative. Over 19 testing was negative. The patient's regular bacterial cultures and the fungal cultures are negative. She remains on broad-s pectrum antibiotics. She felt BiPAP after a few days of support and currently she is intubated on mechanical ventilator. The patient was intubated on 07/14/2021. On today's evaluation of a 2020, remains intubated on mechanical ventilator. She has adequate oxygenation on a PEEP of 15 with a FiO2 of 60%. Chest x-ray is unchanging showing diffuse breath and pulmonary infiltrates. All of the cultures are negative. She is adequately sedated and she is calm and comfortable and hemodynamically stable. 2 acute hypoxic respiratory failure secondary to above and the patient has developed worsening pneumonia and hypoxemic respiratory failure 3 shortness of breath secondary to but not limited to above mentioned pneumonia. 4 acute myeloid leukemia post induction chemotherapy, remains leukopenic and presents of the neck 5 pancytopenia, and there was interval drop in hemoglobin down to 6.6 and the patient will be receiving a unit of packed RBC 6 episodic fever currently under investigation. Cultures are negative and the patient is covered with broad-spectrum antibiotics. The patient is a PICC line in the right upper extremity. Afebrile for the past 24 hours 7 electrolytes disturbance, being managed and replaced 8 diarrhea, stool for C. diff has been negative, still having some diarrhea 9 paroxysmal atrial fibrillation, current rhythm is sinus and the patient will be taken off the Cardizem drip. Plan Keep the patient sedated with propofol, currently propofol is running at 25 mcg/kg per minute Continue ventilator support, no changes Initiate enteral feeding for nutritional support Continue broad-spectrum antibiotic coverage pending further cultures a unit of packed RBC today. The Cardizem drip Remains leukopenic Echocardiogram to be completed and the patient is a preserved LV function with an ejection fraction of 50-55%. Condition is critical. Case was discussed with the at the bedside. Case was also discussed with hematology oncology and infectious disease. Critically care evaluation was done more than 30 minutes. Time with Patient: Greater than 30
[2021-07-15] MEDS: POTASSIUM PHOSPHATE 10 MMOL in SODIUM CHLORIDE 0.9% 250 ML IV SCH ×2 (09:39→14:33)
[2021-07-15] MEDS: SODIUM CHLORIDE 0.9% IVPB SCH ×2 (09:39→22:03)
[2021-07-15] MEDS: VORICONAZOLE IVPB SCH ×2 (09:39→22:03)
[2021-07-15] MEDS: ZINC SULFATE 220 MG CAP PO SCH (09:41)
[2021-07-15] MEDS: PANTOPRAZOLE 40 MG/10 ML VIAL IV SCH (09:41)
[2021-07-15] MEDS: CHLORHEXIDINE GLUCONATE 15 ML CUP MUCOUS MEM SCH ×2 (09:41→21:05)
[2021-07-15] MEDS: PARoxetine 10 MG TAB PO SCH (09:42)
[2021-07-15] MEDS: CHOLESTYRAMINE (WITH SUGAR) 4 GM PACKET PO SCH ×2 (09:42→17:32)
[2021-07-15] MEDS: SALT AND SODA MOUTHWASH 1,000 ML PO SCH ×4 (09:42→22:02)
[2021-07-15 11:30] LABS: Glucose,Whole Blood 119 mg/dL (75-99)
[2021-07-15] MEDS: CEFEPIME 2 GM in SODIUM CHLORIDE 0.9% 100 ML IVPB SCH (12:01)
--- NOTE | 2021-07-15 15:11 | PN ---
PROGRESS NOTE DATE OF SERVICE: 07/15/2021 REASON FOR FOLLOWUP: Febrile neutropenia and pneumonia. INTERVAL HISTORY: The patient did spike another fever this morning of 101.7 degrees Fahrenheit. The patient is hemodynamically stable, not on pressor support. FiO2 is currently at 60%. No significant purulent secretions in the ET, diarrhea or other changes reported by the nursing staff. PHYSICAL EXAMINATION: Blood pressure is 99/56, pulse of 92, temperature 99.1. She is 98% on 60% FiO2. GENERAL DESCRIPTION: General description is a middle-aged female intubated on the vent. RESPIRATORY SYSTEM: Unlabored breathing. Coarse breath sounds bilaterally. No wheeze. HEART: S1, S2. Regular rate and rhythm. ABDOMEN: Soft. No tenderness. LABS: Hemoglobin 6.3, white count 6.1, BUN of 20, creatinine 1.05. Bronchoscopy cultures currently pending. DIAGNOSTIC IMPRESSION AND PLAN: Patient with acute respiratory failure which is multifactorial concerning for possible ARDS pattern with concern for a pneumonia; however, the patient is covered with broad- spectrum antibiotic and the culture has been negative. Prognosis remains guarded. Family at the bedside. Questions were answered. MMODL / IJN: [id number] /
--- NOTE | 2021-07-15 17:09 | P.PN ---
Subjective Progress Note Date: 07/15/21 Patient remains intubated with FiO2 of 60%, and PEEP of 15. He appears to be hemodynamically stable and reasonably comfortable. She did have a breakthrough fever of 101.7 but has otherwise been generally afebrile over the past 48 hours or more. No obvious bleeding noted Objective - Vital Signs Vital signs: Vital Signs Temp 98.9 F 07/15/21 16:00 Pulse 93 07/15/21 16:34 Resp 26 H 07/15/21 16:00 BP 99/54 07/14/21 17:00 Pulse Ox 97 07/15/21 16:00 Intake & Output 07/14/21 07/15/21 07/15/21 18:59 06:59 18:59 Intake Total 1147.84 2589.896 1506.500 Output Total 1845 335 305 Balance -697.16 2254.896 1201.500 Weight 92 kg Intake: IV 836 2430 1157 0.9 20 0.9 carriers 40 200 Acyclovir Sodium 500 mg 100 In Sodium Chloride 0.9% 100 ml @ 100 mls/hr IVPB Q8H [facility] Rx#:[id number] Cefepime 2 gm In Sodium 100 100 Chloride 0.9% 100 ml @ 25 mls/hr IVPB Q12HR [facility] Rx #:[id number] D5-0.45% NaCl with KCl 60 200 180 30Meq/l 1,000 ml @ 20 mls /hr IV .Q24H [facility] Rx#: [id number] Potassium Chloride 20 meq 300 In Water For Injection 1 100ml.bag @ 50 mls/hr IVPB Q2H [facility] Rx#: [id number] Potassium Phosphate 10 500 mmol In Sodium Chloride 0 .9% 250 ml @ 125 mls/hr IV Q2H [facility] Rx#:[id number] Sodium Chloride 0.9% 1, 60 000 ml @ 20 mls/hr IV . Q24H [facility] Rx#:[id number] Sodium Chloride 0.9% 2, 2000 000 ml @ 999 mls/hr IV . Q2H1M [facility] Rx#:[id number] Voriconazole 360 mg In 250 250 Sodium Chloride 0.9% 250 ml @ 125 mls/hr IVPB Q12HR [facility] Rx#:[id number] arterial line 6 30 27 Intake, IV Titration 1.84 159.896 139.500 Amount Diltiazem 125 mg In 39.5 Sodium Chloride 0.9% 100 ml @ 10 MG/HR 10 mls/hr IV .[id number] [facility] Rx#: [id number] propofoL 1,000 mg In 1.84 159.896 100.000 Empty Bag 1 bag @ Titrate IV .Q0M [facility] Rx#: [id number] Tube Feeding 150 Blood Product 310 Rc Irr As1 Unit 310 [id number] Other 60 Output: Urine 1845 335 305 Other: Voiding Method Indwelling Catheter Indwelling Catheter Indwelling Catheter # Voids 0 ABP, PAP, CO, CI - Last Documented Arterial Blood Pressure 114/50 - Constitutional Constitutional Comment(s): Sedated, on ventilator General appearance: Present: no acute distress - Respiratory Respiratory: bilateral: CTA - Cardiovascular Rhythm: regular Heart sounds: normal: S1, S2 - Gastrointestinal General gastrointestinal: Present: normal bowel sounds, soft - Integumentary Integumentary: Present: normal - Musculoskeletal Musculoskeletal: Present: generalized weakness - Psychiatric Psychiatric Comment(s): sedated, on vent - Labs CBC & Chem 7: 07/15/21 05:10 07/15/21 05:10 Labs: Abnormal Lab Results - Last 24 Hours (Table) 07/15/21 07/15/21 07/15/21 Range/Units 05:06 05:10 05:10 WBC 0.1 L* (3.8-10.6) k/uL RBC 2.22 L (3.80-5.40) m/uL Hgb 6.6 L* D (11.4-16.0) gm/dL Hct 20.0 L (34.0-46.0) % Plt Count 18 L* (150-450) k/uL ABG pH (7.35-7.45) ABG HCO3 (21-25) mmol/L ABG Total CO2 (19-24) mmol/L ABG O2 Saturation (94-97) % Chloride 113 H (98-107) mmol/L BUN 20 H (7-17) mg/dL Creatinine 1.05 H (0.52-1.04) mg/dL Glucose 126 H (74-99) mg/dL POC Glucose (mg/dL) 124 H (75-99) mg/dL Calcium 7.6 L (8.4-10.2) mg/dL Phosphorus 1.8 L (2.5-4.5) mg/dL Total Protein 4.5 L (6.3-8.2) g/dL Albumin 2.0 L (3.5-5.0) g/dL 07/15/21 07/15/21 Range/Units 05:13 11:28 WBC (3.8-10.6) k/uL RBC (3.80-5.40) m/uL Hgb (11.4-16.0) gm/dL Hct (34.0-46.0) % Plt Count (150-450) k/uL ABG pH 7.47 H (7.35-7.45) ABG HCO3 29 H (21-25) mmol/L ABG Total CO2 30 H (19-24) mmol/L ABG O2 Saturation 97.7 H (94-97) % Chloride (98-107) mmol/L BUN (7-17) mg/dL Creatinine (0.52-1.04) mg/dL Glucose (74-99) mg/dL POC Glucose (mg/dL) 119 H (75-99) mg/dL Calcium (8.4-10.2) mg/dL Phosphorus (2.5-4.5) mg/dL Total Protein (6.3-8.2) g/dL Albumin (3.5-5.0) g/dL Microbiology - Last 24 Hours (Table) 07/09/21 13:00 Blood Culture - Final Blood No Growth after 144 hours 07/08/21 16:00 Blood Culture - Final Blood No Growth after 144 hours 07/11/21 15:00 Legionella Culture - Preliminary Bronchial Washings - Random Assessment and Plan (1) Acute respiratory insufficiency Narrative/Plan: The patient developed the same, associated with bilateral diffuse lung infiltrates. Clinical picture appears to be consistent with ARDS. Possible etiologies include sepsis due to infection, transfusion related lung injury or possibly medication effect. Multifactorial etiologies are also possible. - Patient therefore required intubation yesterday. She is currently resting comfortably on the ventilator with ongoing sedation. [facility] notes reviewed. Defer to them for ongoing management. - Patient is covered with broad-spectrum antibiotics including double bacterial coverage, as well as voriconazole. Cultures are all negative. Rydapt has been held - Typically improvement is expected once W BC starts to improve Current Visit: Yes Status: Acute Code(s): R06.89 - OTHER ABNORMALITIES OF BREATHING SNOMED Code(s): 968422933 (2) AML (acute myeloid leukemia) Narrative/Plan: Patient is status post first cycle of induction, with ongoing posttreatment complications as described above. Awaiting recovery of counts. Typically this would be anticipated starting around now and over the next 3-4 days. Current Visit: No Status: Acute Priority: High Code(s): C92.00 - ACUTE MYELOBLASTIC LEUKEMIA, NOT HAVING ACHIEVED REMISSION SNOMED Code(s): 97907544 (3) Pancytopenia due to antineoplastic chemotherapy Narrative/Plan: This continues to remain quite profound, as expected for this stage of for treatment. Continue to monitor and transfuse to keep hemoglobin greater than 7 and platelets > 10, as long as there is no evidence of any active bleeding. One unit of PRBC ordered for hemoglobin in the 6 range today. - Awaiting WBC recovery Current Visit: Yes Status: Acute Code(s): D61.810 - ANTINEOPLASTIC CHEMOTHERAPY INDUCED PANCYTOPENIA; T45.1X5A - ADVERSE EFFECT OF ANTINEOPLASTIC AND IMMUNOSUP DRUGS, INIT SNOMED Code(s): 037408013584509
[2021-07-15] MEDS: LEVOFLOXACIN 750MG-D5W PMX 750 MG in DEXTROSE/WATER 1 150ML.BAG IVPB SCH (17:32)
[2021-07-15 17:40] LABS: Glucose,Whole Blood 123 mg/dL (75-99)
--- NOTE | 2021-07-15 18:27 | P.PN ---
Subjective Progress Note Date: 07/15/21 (delayed charting seen at 1107) Principal diagnosis: fevers Patient is a 61-year-old female recently diagnosed with AML who started induction chemotherapy here during admission from 06/19 through 07/02. Repeat presented with neutropenic fevers. Subsequently diagnosed with pneumonia. Pulmonary and ID following, admitted to heme/onc. Bronch completed 07/11. All cultures are negative to date. Diflucan broadened to voriconzole on 07/11 and Levquin added. 07/12 patient went into A fib with RVR and was started on a cardizem gtt. 07/13 not able to come off Bipap and currently dependent. 07/14 intubated Patient seen on bedside. Sedated on vent. No family at bedside. General: no toxic, moderate distress, appears at stated age Derm: petchaia bilateral lower extremities, multiple areas of ecchymosis, warm, dry Head: atraumatic, normocephalic, symmetric Eyes: EOMI, no lid lag, anicteric sclera Mouth: no lip lesion, mucus membranes moist Cardiovascular: S1S2 reg, no murmur, positive posterior tibial pulse bilateral, Lungs: Course bs bilateral, on vent Abdominal: soft, nontender to palpation, no guarding, no appreciable organomegaly Ext: no gross muscle atrophy, trace edema, no contractures Neuro: with drawing to pain, breathing over the vent, opens eyes to sounds Psych: sedated on vetn Neutropenic fevers Acute myelogenous leukemia Pancytopenia, chemo induced Pneumonia Acute hypoxic respiratory failure, vent dependent ARDS Diarrhea Sepsis without septic shock -Covid negative, legionella urine antigen negative, Aspergillus IgE negative - all cultures negative to date. - PCP stain is negative - bronch 07/11 with cultures negative to date. - ID, Pulm, Heme/onc recs appreciated - Continue with vanco, cefepime, voriconzaole, levaquin, and acyclovir - monitor fever profile - Fecal lactoferrin +, C diff negative, stool cultures negative - cholestyramine - s/p multiple units of pRBC and Plts - follow CBC and transfuse as indicated - Viral studies negative. 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 Awaiting direct AB stain results from [facility] [id number], will be back sat- Objective - Vital Signs Vital signs: Vital Signs Temp 98.9 F 07/15/21 16:00 Pulse 93 07/15/21 16:34 Resp 26 H 07/15/21 16:00 BP 99/54 07/14/21 17:00 Pulse Ox 97 07/15/21 16:00 Intake & Output 07/14/21 07/15/21 07/15/21 18:59 06:59 18:59 Intake Total 1147.84 2589.896 1509.720 Output Total 1845 335 305 Balance -697.16 2254.896 1204.720 Weight 92 kg Intake: IV 836 2430 1157 0.9 20 0.9 carriers 40 200 Acyclovir Sodium 500 mg 100 In Sodium Chloride 0.9% 100 ml @ 100 mls/hr IVPB Q8H [facility] Rx#:[id number] Cefepime 2 gm In Sodium 100 100 Chloride 0.9% 100 ml @ 25 mls/hr IVPB Q12HR [facility] Rx #:[id number] D5-0.45% NaCl with KCl 60 200 180 30Meq/l 1,000 ml @ 20 mls /hr IV .Q24H [facility] Rx#: [id number] Potassium Chloride 20 meq 300 In Water For Injection 1 100ml.bag @ 50 mls/hr IVPB Q2H [facility] Rx#: [id number] Potassium Phosphate 10 500 mmol In Sodium Chloride 0 .9% 250 ml @ 125 mls/hr IV Q2H [facility] Rx#:[id number] Sodium Chloride 0.9% 1, 60 000 ml @ 20 mls/hr IV . Q24H [facility] Rx#:[id number] Sodium Chloride 0.9% 2, 2000 000 ml @ 999 mls/hr IV . Q2H1M [facility] Rx#:[id number] Voriconazole 360 mg In 250 250 Sodium Chloride 0.9% 250 ml @ 125 mls/hr IVPB Q12HR [facility] Rx#:[id number] arterial line 6 30 27 Intake, IV Titration 1.84 159.896 142.720 Amount Diltiazem 125 mg In 39.5 Sodium Chloride 0.9% 100 ml @ 10 MG/HR 10 mls/hr IV .[id number] [facility] Rx#: [id number] propofoL 1,000 mg In 1.84 159.896 103.220 Empty Bag 1 bag @ Titrate IV .Q0M [facility] Rx#: [id number] Tube Feeding 150 Blood Product 310 Rc Irr As1 Unit 310 [id number] Other 60 Output: Urine 1845 335 305 Other: Voiding Method Indwelling Catheter Indwelling Catheter Indwelling Catheter # Voids 0 ABP, PAP, CO, CI - Last Documented Arterial Blood Pressure 114/50 - Labs CBC & Chem 7: 07/15/21 05:10 07/15/21 05:10 Labs: Abnormal Lab Results - Last 24 Hours (Table) 07/15/21 07/15/21 07/15/21 Range/Units 05:06 05:10 05:10 WBC 0.1 L* (3.8-10.6) k/uL RBC 2.22 L (3.80-5.40) m/uL Hgb 6.6 L* D (11.4-16.0) gm/dL Hct 20.0 L (34.0-46.0) % Plt Count 18 L* (150-450) k/uL ABG pH (7.35-7.45) ABG HCO3 (21-25) mmol/L ABG Total CO2 (19-24) mmol/L ABG O2 Saturation (94-97) % Chloride 113 H (98-107) mmol/L BUN 20 H (7-17) mg/dL Creatinine 1.05 H (0.52-1.04) mg/dL Glucose 126 H (74-99) mg/dL POC Glucose (mg/dL) 124 H (75-99) mg/dL Calcium 7.6 L (8.4-10.2) mg/dL Phosphorus 1.8 L (2.5-4.5) mg/dL Total Protein 4.5 L (6.3-8.2) g/dL Albumin 2.0 L (3.5-5.0) g/dL 07/15/21 07/15/21 07/15/21 Range/Units 05:13 11:28 17:38 WBC (3.8-10.6) k/uL RBC (3.80-5.40) m/uL Hgb (11.4-16.0) gm/dL Hct (34.0-46.0) % Plt Count (150-450) k/uL ABG pH 7.47 H (7.35-7.45) ABG HCO3 29 H (21-25) mmol/L ABG Total CO2 30 H (19-24) mmol/L ABG O2 Saturation 97.7 H (94-97) % Chloride (98-107) mmol/L BUN (7-17) mg/dL Creatinine (0.52-1.04) mg/dL Glucose (74-99) mg/dL POC Glucose (mg/dL) 119 H 123 H (75-99) mg/dL Calcium (8.4-10.2) mg/dL Phosphorus (2.5-4.5) mg/dL Total Protein (6.3-8.2) g/dL Albumin (3.5-5.0) g/dL Microbiology - Last 24 Hours (Table) 07/09/21 13:00 Blood Culture - Final Blood No Growth after 144 hours 07/08/21 16:00 Blood Culture - Final Blood No Growth after 144 hours 07/11/21 15:00 Legionella Culture - Preliminary Bronchial Washings - Random
[2021-07-15] MEDS ORDERED: DILTIAZEM DRIP BOLUS FROM BAG 1 MG SOLN IV ONE (20:41)
[2021-07-16 00:39] LABS: Glucose,Whole Blood 138 mg/dL (75-99)
[2021-07-16] MEDS: CEFEPIME 2 GM in SODIUM CHLORIDE 0.9% 100 ML IVPB SCH ×2 (01:00→11:47)
[2021-07-16 05:05] LABS: ABG Base Excess 3.3 mmol/L; ABG HCO3 28 mmol/L (21-25); ABG Oxygen Saturation 99.4 % (94-97); ABG PCO2 43 mmHg (35-45); ABG PH 7.42 (7.35-7.45); ABG PO2 157 mmHg (83-108); ABG TCO2 29 mmol/L (19-24); Allen Test Performed? Yes
[2021-07-16 05:42] LABS: HCT 24.4 % (34.0-46.0); MCH 30.4 pg (25.0-35.0); MCHC 33.5 g/dL (31.0-37.0); MCV 90.7 fL (80.0-100.0); Mean Platelet Volume 11.7; RBC 2.69 m/uL (3.80-5.40); RDW 14.9 % (11.5-15.5)
[2021-07-16 05:49] LABS: WBC 0.3 k/uL (3.8-10.6)
[2021-07-16 05:50] LABS: Albumin 2.1 g/dL (3.5-5.0); Calcium 7.7 mg/dL (8.4-10.2); HGB 8.2 gm/dL (11.4-16.0); Magnesium 1.8 mg/dL (1.6-2.3); Phosphorus 2.5 mg/dL (2.5-4.5); Platelet Count 46 k/uL (150-450); Total Bilirubin 0.5 mg/dL (0.2-1.3); Total Protein 4.8 g/dL (6.3-8.2)
--- NOTE | 2021-07-16 06:22 | XR ---
EXAMINATION TYPE: XR chest 1V portable DATE OF EXAM: 07/16/2021 COMPARISON: 07/15/2021 HISTORY: Tube placement and shortness of breath TECHNIQUE: Single frontal view of the chest is obtained. FINDINGS: There is pulmonary vascular congestion is diffuse partially consolidative airspace opacity consistent with pulmonary edema there has been mild decrease in the degree of opacity compared to th e prior study. There is bilateral pleural effusion which is unchanged. There is an NG tube within the stomach. There is an ET tube proximal 4.6 cm above the olivia. There i s a PICC line entering the right upper extremity and terminating in the SVC There is a retrocardiac opacity consistent with airspace consolidation and/or atelectasis. IMPRESSION: Marked acute cardiopulmonary disease most consistent with vascular congestion and edema with mild interval improvement since the prior study. There is been no change in the position of the PICC line, NG tube or ET tube. There is no pneumothorax.
[2021-07-16] MEDS: ACYCLOVIR SODIUM 500 MG in SODIUM CHLORIDE 0.9% 100 ML IVPB SCH ×2 (06:34→13:08)
[2021-07-16 06:51] LABS: Glucose,Whole Blood 147 mg/dL (75-99)
[2021-07-16 07:01] LABS: Anisocytosis (M) Present
[2021-07-16 07:03] LABS: Large Platelets Present
[2021-07-16] MEDS: ALBUTEROL NEBULIZED 2.5 MG/3 ML INHALATION SCH ×4 (07:39→19:39)
[2021-07-16] MEDS: CHOLESTYRAMINE (WITH SUGAR) 4 GM PACKET PO SCH ×2 (07:57→20:38)
[2021-07-16] MEDS: CHLORHEXIDINE GLUCONATE 15 ML CUP MUCOUS MEM SCH ×2 (07:57→21:07)
[2021-07-16] MEDS: ZINC SULFATE 220 MG CAP PO SCH (07:57)
[2021-07-16] MEDS: PANTOPRAZOLE 40 MG/10 ML VIAL IV SCH (07:57)
[2021-07-16] MEDS: PARoxetine 10 MG TAB PO SCH (07:57)
[2021-07-16] MEDS: SALT AND SODA MOUTHWASH 1,000 ML PO SCH ×4 (07:58→22:17)
[2021-07-16] MEDS: SODIUM CHLORIDE 0.9% IVPB SCH ×2 (08:38→21:14)
[2021-07-16] MEDS: VORICONAZOLE IVPB SCH ×2 (08:38→21:14)
--- NOTE | 2021-07-16 09:51 | P.PN ---
Subjective Progress Note Date: 07/16/21 07/16/2021, I'm seeing this patient for a follow-up. She remains on a mechanical ventilator and she is adequately sedated with propofol running at 30 mcg/kg per minute. She is quite comfortable. There has been some interval improvement in her oxygenation on today's blood gas. The patient is at 7.42 with a pCO2 of 43 and pO2 157. The chest x-ray still showing diffuse but the pulmonary infiltrates. ET tube is in a good location. I have the patient on a PEEP of 15 with an FiO2 of 50% and a tidal volume of 400 and rate of 24. As stated, all of the cultures came back negative. White cell count is improving. Currently is up to 0.3. Platelet count is also improved up to 46 and the white cell count is at 0.3 with a hemoglobin of 8.2. Electrodes are stable. She was diuresing adequately yesterday. However, she is having on and off runs of atrial fibrillation with rapid ventricular response. We have manage those with Cardizem drip and currently she is back into normal sinus rhythm and the Cardizem drip is running at 5 mg an hour. No bleeding complications. Tolerating enteral feeding for nutritional support. Echocardiogram shows preserved LV function. The cultures are negative and the patient's net fluid balance has been in the order of +2 L over the past 24 hours. She may tolerate gentle diuresis. Does have some increased edema and third spacing specially in lower extremities bilaterally. Objective - Vital Signs Vital signs: Vital Signs Temp 99.2 F 07/16/21 08:00 Pulse 87 07/16/21 08:03 Resp 24 07/16/21 08:00 BP 102/55 07/16/21 04:02 Pulse Ox 99 07/16/21 08:00 Intake & Output 07/15/21 07/16/21 07/16/21 18:59 06:59 18:59 Intake Total 4186.810 6185.87 546 Output Total 410 585 125 Balance 1288.850 724.87 421 Weight 92 kg 99.1 kg Intake: IV 1203 473 436 0.9 carriers 220 40 Acyclovir Sodium 500 mg 100 100 In Sodium Chloride 0.9% 100 ml @ 100 mls/hr IVPB Q8H [facility] Rx#:[id number] Cefepime 2 gm In Sodium 100 Chloride 0.9% 100 ml @ 25 mls/hr IVPB Q12HR [facility] Rx #:[id number] D5-0.45% NaCl with KCl 220 220 40 30Meq/l 1,000 ml @ 20 mls /hr IV .Q24H [facility] Rx#: [id number] Potassium Phosphate 10 500 mmol In Sodium Chloride 0 .9% 250 ml @ 125 mls/hr IV Q2H [facility] Rx#:[id number] Voriconazole 360 mg In 250 250 Sodium Chloride 0.9% 250 ml @ 125 mls/hr IVPB Q12HR [facility] Rx#:[id number] arterial line 33 33 6 Intake, IV Titration 195.850 146.87 Amount Diltiazem 125 mg In 39.5 0 Sodium Chloride 0.9% 100 ml @ 5 MG/HR 5 mls/hr IV .Q24H [facility] Rx#:[id number] propofoL 1,000 mg In 156.350 146.87 Empty Bag 1 bag @ Titrate IV .Q0M [facility] Rx#: [id number] Tube Feeding 240 380 80 Blood Product 310 Rc Irr As1 Unit 310 [id number] Other 60 30 Output: Urine 410 585 125 Other: Voiding Method Indwelling Catheter Indwelling Catheter Indwelling Catheter ABP, PAP, CO, CI - Last Documented Arterial Blood Pressure 97/52 - Exam Gen. appearance the patient is sedated, intubated on a mechanical ventilator. Orogastric and orotracheal tube are both in place. Head exam was generally normal. There was no scleral icterus or corneal arcus. Mucous membranes were moist. Neck was supple and without jugular venous distension, thyromegaly, or carotid bruits. Carotids were easily palpable bilaterally. There was no adenopathy. Lungs sounds are diminished and there are diffuse rhonchi heard throughout the lung his bilaterally. Otherwise the breath sounds are equal for now. No signif icant wheezes. Cardiac exam revealed the PMI to be normally situated and sized. The rhythm was regular and no extrasystoles were noted during several minutes of auscultation. The first and second heart sounds were normal and physiologic splitting of the second heart sound was noted. There were no murmurs, rubs, clicks, or gallops. Abdominal exam revealed normal bowel sounds. The abdomen was soft, non-tender, and without masses, organomegaly, or appreciable enlargement of the abdominal aorta. Examination of the extremities revealed easily palpable radial, femoral and pedal pulses. There was no cyanosis, clubbing or edema. Examination of the skin revealed no evidence of significant rashes, suspicious appearing nevi or other concerning lesions. The patient has petechia in the lower extremities bilaterally related to underlying thrombocytopenia. Few areas of bruising, not extensive. The patient has increased edema in lower extremities bilaterally. Neurologically, the patient is sedated currently on propofol. No focal neurological deficits. The patient was quite lethargic and obtunded prior to the intubation process. There was a recorded reactive to light. - Labs CBC & Chem 7: 07/16/21 05:02 07/16/21 05:02 Labs: Abnormal Lab Results - Last 24 Hours (Table) 07/11/21 07/15/21 07/15/21 Range/Units 17:36 08:37 11:28 WBC (3.8-10.6) k/uL RBC (3.80-5.40) m/uL Hgb (11.4-16.0) gm/dL Hct (34.0-46.0) % Plt Count (150-450) k/uL ABG pO2 (83-108) mmHg ABG HCO3 (21-25) mmol/L ABG Total CO2 (19-24) mmol/L ABG O2 Saturation (94-97) % Chloride (98-107) mmol/L BUN (7-17) mg/dL Glucose (74-99) mg/dL POC Glucose (mg/dL) 119 H (75-99) mg/dL Calcium (8.4-10.2) mg/dL Total Protein (6.3-8.2) g/dL Albumin (3.5-5.0) g/dL Crossmatch See Detail See Detail 07/15/21 07/16/21 07/16/21 Range/Units 17:38 00:38 05:00 WBC (3.8-10.6) k/uL RBC (3.80-5.40) m/uL Hgb (11.4-16.0) gm/dL Hct (34.0-46.0) % Plt Count (150-450) k/uL ABG pO2 157 H (83-108) mmHg ABG HCO3 28 H (21-25) mmol/L ABG Total CO2 29 H (19-24) mmol/L ABG O2 Saturation 99.4 H (94-97) % Chloride (98-107) mmol/L BUN (7-17) mg/dL Glucose (74-99) mg/dL POC Glucose (mg/dL) 123 H 138 H (75-99) mg/dL Calcium (8.4-10.2) mg/dL Total Protein (6.3-8.2) g/dL Albumin (3.5-5.0) g/dL Crossmatch 07/16/21 07/16/21 07/16/21 Range/Units 05:02 05:02 06:50 WBC 0.3 L* (3.8-10.6) k/uL RBC 2.69 L (3.80-5.40) m/uL Hgb 8.2 L D (11.4-16.0) gm/dL Hct 24.4 L (34.0-46.0) % Plt Count 46 L D (150-450) k/uL ABG pO2 (83-108) mmHg ABG HCO3 (21-25) mmol/L ABG Total CO2 (19-24) mmol/L ABG O2 Saturation (94-97) % Chloride 114 H (98-107) mmol/L BUN 21 H (7-17) mg/dL Glucose 156 H (74-99) mg/dL POC Glucose (mg/dL) 147 H (75-99) mg/dL Calcium 7.7 L (8.4-10.2) mg/dL Total Protein 4.8 L (6.3-8.2) g/dL Albumin 2.1 L (3.5-5.0) g/dL Crossmatch Microbiology - Last 24 Hours (Table) 07/09/21 13:00 Blood Culture - Final Blood No Growth after 144 hours Assessment and Plan Plan: 1acute bilateral pneumonia with rapid progression of bilateral pulmonary infiltrates and the patient currently has extensive bilateral airspace disease and coarse interstitial pulmonary infiltrates, consider opportunistic infections especially with her underlying immunosuppression. The bronchioloalveolar lavage has been negative thus far. PCP stain of been negative. Legionella urine antigen was negative. Lavage with viral screen of the bronchioloalveolar lavage has been negative. COVID 19 testing was negative. The patient's regular bacterial cultures and the fungal cultures are negative. She remains on broad- spectrum antibiotics. She felt BiPAP after a few days of support and currently she is intubated on mechanical ventilator. The patient was intubated on 07/14/2021. 07/16/2021, oxygenation is improved. Chest x-ray findings are still showing diffuse bilateral pulmonary infiltrates consistent with pneumonia/acute lung injury/ARDS. Nevertheless, there has been interval improvement in oxygenation. Cultures remain negative and the patient remains afebrile. Remains on the same antibiotic coverage includes cefepime, vancomycin, Levaquin, acyclovir and voriconazole. 2 acute hypoxic respiratory failure secondary to above and the patient has developed worsening pneumonia and hypoxemic respiratory failure 3 shortness of breath secondary to but not limited to above mentioned pneumonia. 4 acute myeloid leukemia post induction chemotherapy, remains leukopenic and presents of the neck 5 pancytopenia, the white cell count is up to 0.3. Platelet counts are also improving. There may be some early signs of recovery of the bone marrow post induction chemotherapy in a patient with AML. 6 episodic fever currently under investigation. Cultures are negative and the patient is covered with broad-spectrum antibiotics. The patient is a PICC line in the right upper extremity. Afebrile for the past 24 hours 7 electrolytes disturbance, being managed and replaced 8 diarrhea, stool for C. diff has been negative, no diarrhea 9 paroxysmal atrial fibrillation, current rhythm is sinus and the patient will be taken off the Cardizem drip. Plan Keep the patient sedated with propofol, currently propofol is running at 35 mcg/kg per minute Continue ventilator support, drop the PEEP down to 12 and drop the FiO2 down to 40%. The differentiation remains decent, will drop the PEEP down to 10. Initiate enteral feeding for nutritional support Continue broad-spectrum antibiotic coverage pending further cultures Started patient on Lasix 20 mg IV every 12 hours Monitor hematologic profile and the patient's white cell count is improving Stop the Cardizem drip. Will not commit for a beta elisha or a calcium channel elisha at this point in time Echocardiogram to be completed and the patient is a preserved LV function with an ejection fraction of 50-55%. Feeding is the form of vital HP Condition is critical. Case was discussed with the at the bedside. Case was also discussed with hematology oncology and infectious disease. Critically care evaluation was done more than 30 minutes. Time with Patient: Greater than 30
[2021-07-16] MEDS: FUROSEMIDE 10 MG/ML 2 ML VIAL IV SCH ×2 (10:16→21:07)
[2021-07-16] MEDS: D5-0.45% NACL WITH KCL 30MEQ/L 1,000 ML IV SCH (10:29)
[2021-07-16 11:45] LABS: Glucose,Whole Blood 145 mg/dL (75-99)
[2021-07-16] MEDS: INSULIN ASPART (NovoLOG) 100 UNIT/ML VIAL SQ SCH ×2 (11:47→20:38)
[2021-07-16] MEDS: DILTIAZEM 125 MG in SODIUM CHLORIDE 0.9% 100 ML IV SCH (12:40)
--- NOTE | 2021-07-16 13:12 | P.PN ---
Subjective Progress Note Date: 07/16/21 The patient remained sedated, on the ventilator. Clinically she is doing somewhat better with FiO2 down to 40%, and PEEP able to be lowered to 12 mm. She is tolerating tube feeds well. She remains afebrile. No obvious bleeding. Objective - Vital Signs Vital signs: Vital Signs Temp 99.2 F 07/16/21 08:00 Pulse 96 07/16/21 13:00 Resp 24 07/16/21 13:00 BP 102/55 07/16/21 04:02 Pulse Ox 98 07/16/21 13:00 Intake & Output 07/15/21 07/16/21 07/16/21 18:59 06:59 18:59 Intake Total 6329.256 4914.87 870.384 Output Total 410 585 605 Balance 1288.850 724.87 265.384 Weight 92 kg 99.1 kg Intake: IV 1203 473 545 0.9 carriers 220 80 Acyclovir Sodium 500 mg 100 100 In Sodium Chloride 0.9% 100 ml @ 100 mls/hr IVPB Q8H [facility] Rx#:[id number] Cefepime 2 gm In Sodium 100 Chloride 0.9% 100 ml @ 25 mls/hr IVPB Q12HR [facility] Rx #:[id number] D5-0.45% NaCl with KCl 220 220 100 30Meq/l 1,000 ml @ 20 mls /hr IV .Q24H [facility] Rx#: [id number] Potassium Phosphate 10 500 mmol In Sodium Chloride 0 .9% 250 ml @ 125 mls/hr IV Q2H [facility] Rx#:[id number] Voriconazole 360 mg In 250 250 Sodium Chloride 0.9% 250 ml @ 125 mls/hr IVPB Q12HR [facility] Rx#:[id number] arterial line 33 33 15 Intake, IV Titration 195.850 146.87 95.384 Amount Diltiazem 125 mg In 39.5 0 Sodium Chloride 0.9% 100 ml @ 5 MG/HR 5 mls/hr IV .Q24H [facility] Rx#:[id number] propofoL 1,000 mg In 156.350 146.87 95.384 Empty Bag 1 bag @ Titrate IV .Q0M [facility] Rx#: [id number] Tube Feeding 240 380 200 Blood Product 310 Rc Irr As1 Unit 310 [id number] Other 60 30 Output: Urine 410 585 605 Other: Voiding Method Indwelling Catheter Indwelling Catheter Indwelling Catheter ABP, PAP, CO, CI - Last Documented Arterial Blood Pressure 120/52 - Constitutional General appearance: Present: no acute distress - EENT EENT Comment(s): ET tube in situ. No obvious blood in tube - Respiratory Respiratory: bilateral: CTA - Cardiovascular Rhythm: regular Heart sounds: normal: S1, S2 - Gastrointestinal General gastrointestinal: Present: normal bowel sounds - Integumentary Integumentary Comment(s): Petechial rash, more prominent on the lower extremities, starting to fade - Musculoskeletal Musculoskeletal: Present: generalized weakness - Psychiatric Psychiatric Comment(s): Sedated, on ventilator - Labs CBC & Chem 7: 07/16/21 05:02 07/16/21 05:02 Labs: Abnormal Lab Results - Last 24 Hours (Table) 07/11/21 07/15/21 07/15/21 Range/Units 17:36 08:37 17:38 WBC (3.8-10.6) k/uL RBC (3.80-5.40) m/uL Hgb (11.4-16.0) gm/dL Hct (34.0-46.0) % Plt Count (150-450) k/uL ABG pO2 (83-108) mmHg ABG HCO3 (21-25) mmol/L ABG Total CO2 (19-24) mmol/L ABG O2 Saturation (94-97) % Chloride (98-107) mmol/L BUN (7-17) mg/dL Glucose (74-99) mg/dL POC Glucose (mg/dL) 123 H (75-99) mg/dL Calcium (8.4-10.2) mg/dL Total Protein (6.3-8.2) g/dL Albumin (3.5-5.0) g/dL Crossmatch See Detail See Detail 07/16/21 07/16/21 07/16/21 Range/Units 00:38 05:00 05:02 WBC (3.8-10.6) k/uL RBC (3.80-5.40) m/uL Hgb (11.4-16.0) gm/dL Hct (34.0-46.0) % Plt Count (150-450) k/uL ABG pO2 157 H (83-108) mmHg ABG HCO3 28 H (21-25) mmol/L ABG Total CO2 29 H (19-24) mmol/L ABG O2 Saturation 99.4 H (94-97) % Chloride 114 H (98-107) mmol/L BUN 21 H (7-17) mg/dL Glucose 156 H (74-99) mg/dL POC Glucose (mg/dL) 138 H (75-99) mg/dL Calcium 7.7 L (8.4-10.2) mg/dL Total Protein 4.8 L (6.3-8.2) g/dL Albumin 2.1 L (3.5-5.0) g/dL Crossmatch 07/16/21 07/16/21 07/16/21 Range/Units 05:02 06:50 11:44 WBC 0.3 L* (3.8-10.6) k/uL RBC 2.69 L (3.80-5.40) m/uL Hgb 8.2 L D (11.4-16.0) gm/dL Hct 24.4 L (34.0-46.0) % Plt Count 46 L D (150-450) k/uL ABG pO2 (83-108) mmHg ABG HCO3 (21-25) mmol/L ABG Total CO2 (19-24) mmol/L ABG O2 Saturation (94-97) % Chloride (98-107) mmol/L BUN (7-17) mg/dL Glucose (74-99) mg/dL POC Glucose (mg/dL) 147 H 145 H (75-99) mg/dL Calcium (8.4-10.2) mg/dL Total Protein (6.3-8.2) g/dL Albumin (3.5-5.0) g/dL Crossmatch Microbiology - Last 24 Hours (Table) 07/09/21 13:00 Blood Culture - Final Blood No Growth after 144 hours Assessment and Plan (1) Acute respiratory insufficiency Narrative/Plan: Due to ARDS type picture with exact etiology not clear. Could be multifactorial, as noted in progress note yesterday. Patient show some improvement with FiO2 and posture pressure both being able to be decreased. Continue broad-spectrum antibiotic coverage and ventilator support. Defer to CCM for continued management - Case d/w IM and Nsg. Typically improvement will be progressive as the patient recovers her WBC. However sometimes during the process of WBC recovery, then maybe transient increased lung inflammation due to cytokine increase. This is typically self-limiting, but may require changes and supportive management temporarily Current Visit: Yes Status: Acute Code(s): R06.89 - OTHER ABNORMALITIES OF BREATHING SNOMED Code(s): 707397652 (2) AML (acute myeloid leukemia) Narrative/Plan: Patient is now at around day #21 of induction treatment. Blood counts appear to be starting to show signs of recovery. Continue current supportive care. Plan to reintroduce Rydapt as and when patient is able to be extubated and respiratory status is more stable. Current Visit: No Status: Acute Priority: High Code(s): C92.00 - ACUTE MYELOBLASTIC LEUKEMIA, NOT HAVING ACHIEVED REMISSION SNOMED Code(s): 49017379 (3) Pancytopenia due to antineoplastic chemotherapy Narrative/Plan: WBC shows increase today to 300 from 100 yesterday, hopefully indicating beginning of count recovery. This is further supported by platelet counts increasing spontaneously to 46. Hemoglobin remains above 7. Continue to monitor and transfuse to keep hemoglobin greater than 7 and platelets greater than 10 Current Visit: Yes Status: Acute Code(s): D61.810 - ANTINEOPLASTIC CHEMOTHERAPY INDUCED PANCYTOPENIA; T45.1X5A - ADVERSE EFFECT OF ANTINEOPLASTIC AND IMMUNOSUP DRUGS, INIT SNOMED Code(s): 057091517286238
--- NOTE | 2021-07-16 13:37 | P.PN ---
Subjective Progress Note Date: 07/16/21 Principal diagnosis: fevers Patient is a 61-year-old female recently diagnosed with AML who started induction chemotherapy here during admission from 06/19 through 07/02. Repeat pres ented with neutropenic fevers. Subsequently diagnosed with pneumonia. Pulmonary and ID following, admitted to heme/onc. Bronch completed 07/11. All cultures are negative to date. Diflucan broadened to voriconzole on 07/11 and Levquin added. 07/12 patient went into A fib with RVR and was started on a cardizem gtt. 07/13 not able to come off Bipap and currently dependent. 07/14 intubated Patient seen and examined at bedside. Sedated on vent. No family at bedside. General: no toxic, moderate distress, appears at stated age Derm: petchaia bilateral lower extremities, multiple areas of ecchymosis, warm, dry Head: atraumatic, normocephalic, symmetric Eyes: EOMI, no lid lag, anicteric sclera Mouth: no lip lesion, mucus membranes dry Cardiovascular: S1S2 reg, no murmur, positive posterior tibial pulse bilateral, Lungs: Course bs bilateral, on vent , small amount of blood in suction catheter Abdominal: soft, nontender to palpation, no guarding, no appreciable organomegaly Ext: no gross muscle atrophy, trace edema, no contractures Neuro: with drawing to pain, breathing over the vent, opens eyes to sounds Psych: sedated on vetn Neutropenic fevers Acute myelogenous leukemia Pancytopenia, chemo induced Pneumonia Acute hypoxic respiratory failure, vent dependent ARDS Diarrhea Sepsis without septic shock - White blood cell count and platelets began increase of 07/16 -Covid negative, legionella urine antigen negative, Aspergillus IgE negative - all cultures negative to date. - PCP stain is negative - bronch 07/11 with cultures negative to date. - ID, Pulm, Heme/onc recs appreciated - Continue with vanco, cefepime, voriconzaole, levaquin, and acyclovir - monitor fever profile - Fecal lactoferrin +, C diff negative, stool cultures negative - cholestyramine - s/p multiple units of pRBC and Plts - follow CBC and transfuse as indicated - Viral studies negative. - vent management per pulm A fib with RVR, currently in normal sinus rhythm -Cardizem drip was discontinued on 07/15. - No anticoagulation due to thrombocytopenia and high risk of bleeding - tele - echo essential within normal limits - consider cardio consult if echo is abnormal Episode of tremors - EEG negative - CT head negative - neurology recs Moderate to severe MR Hypokalemia Hypomagnesemia Hypophosphatemia Hypocalcemia - replace as indicated Poor over all prognosis. Awaiting direct AB stain results from [facility] [id number], not currently available. Active Medications Acetaminophen (Acetaminophen Tab 325 Mg Tab) 650 mg PO Q6HR PRN PRN Reason: Fever and/ or Pain Last Admin: 07/10/21 13:02 Dose: 650 mg Documented by: Albuterol Sulfate (Albuterol Nebulized 2.5 Mg/3 Ml) 2.5 mg INHALATION RT-QID [facility] Last Admin: 07/16/21 11:24 Dose: 2.5 mg Documented by: Albuterol Sulfate (Albuterol Nebulized 2.5 Mg/3 Ml) 2.5 mg INHALATION RT-QID PRN PRN Reason: Shortness Of Breath Or Wheezing Last Admin: 07/11/21 04:58 Dose: 2.5 mg Documented by: Chlorhexidine Gluconate (Chlorhexidine Gluconate 15 Ml Cup) 15 ml MUCOUS MEM BID [facility] Last Admin: 07/16/21 07:57 Dose: 15 ml Documented by: Cholestyramine Resin (Cholestyramine (With Sugar) 4 Gm Packet) 4 gm PO BID@1000,1800 [facility] Last Admin: 07/16/21 07:57 Dose: 4 gm Documented by: Dicyclomine HCl (Dicyclomine 10 Mg Cap) 10 mg PO TID PRN PRN Reason: Dyspepsia Last Admin: 07/06/21 08:48 Dose: 10 mg Documented by: Diphenhydramine HCl (Diphenhydramine 50 Mg/Ml 1 Ml Vial) 25 mg IVP Q6HR PRN PRN Reason: Allergy Symptoms Last Admin: 07/12/21 04:57 Dose: 25 mg Documented by: Diphenoxylate HCl/Atropine (Diphenox-Atrop 2.5-0.025 Mg 1 Each Tab) 1 each PO Q6HR PRN PRN Reason: Diarrhea Last Admin: 07/10/21 13:26 Dose: 1 each Documented by: Furosemide (Furosemide 10 Mg/Ml 2 Ml Vial) 20 mg IV Q12HR [facility] Last Admin: 07/16/21 10:16 Dose: 20 mg Documented by: Hydromorphone HCl (Hydromorphone 0.5 Mg/0.5 Ml Syringe) 0.5 mg IVP Q3HR PRN PRN Reason: Pain Acyclovir Sodium 500 mg/ (Sodium Chloride) 110 mls @ 100 mls/hr IVPB Q8H [facility] Last Admin: 07/16/21 13:08 Dose: 100 mls/hr Documented by: Levofloxacin 750 mg/ IV (Solution) 150 mls @ 100 mls/hr IVPB Q24H [facility] Last Admin: 07/15/21 17:32 Dose: 100 mls/hr Documented by: Voriconazole 360 mg/ Sodium (Chloride) 250 mls @ 125 mls/hr IVPB Q12HR [facility] Last Admin: 07/16/21 08:38 Dose: 125 mls/hr Documented by: Potassium Chloride/Dextrose/Sod Cl (D5%-1/2ns-Kcl 30 Meq/L Iv Solution) 1,000 mls @ 20 mls/hr IV .Q24H [facility] Last Admin: 07/16/21 10:29 Dose: 20 mls/hr Documented by: Propofol 1,000 mg/ IV Solution 100 mls @ 0 mls/hr IV .Q0M [facility]; Protocol Last Titration: 07/16/21 08:40 Dose: 30 mcg/kg/min, 17.838 mls/hr Documented by: Cefepime HCl 2 gm/ Sodium (Chloride) 100 mls @ 25 mls/hr IVPB Q12H [facility] Last Admin: 07/16/21 11:47 Dose: 25 mls/hr Documented by: Diltiazem HCl 125 mg/ Sodium (Chloride) 125 mls @ 5 mls/hr IV .Q24H [facility]; Protocol Last Admin: 07/16/21 12:40 Dose: Not Given Documented by: Insulin Aspart (Insulin Aspart (Novolog) 100 Unit/Ml Vial) 0 unit SQ Q6HR [facility]; Protocol Last Admin: 07/16/21 11:47 Dose: 1 unit Documented by: Lorazepam (Lorazepam 2 Mg/Ml Inj) 0.5 mg IV Q4HR PRN PRN Reason: Anxiety Last Admin: 07/14/21 13:02 Dose: 0.5 mg Documented by: Miscellaneous Information (Potassium Replacement Protocol 1 Each Misc) 1 each MISCELLANE DAILY PRN; Protocol PRN Reason: Per Protocol Miscellaneous Information (Magnesium Replacement Protocol 1 Each Misc) 1 each MISCELLANE DAILY PRN; Protocol PRN Reason: Per Protocol Ondansetron HCl (Ondansetron 4 Mg/2 Ml Vial) 4 mg IVP Q4HR PRN PRN Reason: Nausea And Vomiting Last Admin: 07/10/21 13:26 Dose: 4 mg Documented by: Pantoprazole Sodium (Pantoprazole 40 Mg/10 Ml Vial) 40 mg IV DAILY [facility] Last Admin: 07/16/21 07:57 Dose: 40 mg Documented by: Paroxetine HCl (Paroxetine 10 Mg Tab) 10 mg PO DAILY [facility] Last Admin: 07/16/21 07:57 Dose: 10 mg Documented by: Sodium Bicarbonate (Salt And Soda Mouthwash 1,000 Ml) 10 ml PO QID [facility] Last Admin: 07/16/21 13:02 Dose: Not Given Documented by: Sodium Chloride (Sodium Chloride 0.65% Nasal [place] 44 Ml Btl) 2 spray NASAL QID PRN PRN Reason: Sinus Symptoms Zinc Sulfate (Zinc Sulfate 220 Mg Cap) 220 mg PO DAILY [facility] Last Admin: 07/16/21 07:57 Dose: 220 mg Documented by: Objective - Vital Signs Vital signs: Vital Signs Temp 99.2 F 07/16/21 08:00 Pulse 96 07/16/21 13:00 Resp 24 07/16/21 13:00 BP 102/55 07/16/21 04:02 Pulse Ox 98 07/16/21 13:00 Intake & Output 07/15/21 07/16/21 07/16/21 18:59 06:59 18:59 Intake Total 9619.942 3207.87 870.384 Output Total 410 585 605 Balance 1288.850 724.87 265.384 Weight 92 kg 99.1 kg Intake: IV 1203 473 545 0.9 carriers 220 80 Acyclovir Sodium 500 mg 100 100 In Sodium Chloride 0.9% 100 ml @ 100 mls/hr IVPB Q8H [facility] Rx#:[id number] Cefepime 2 gm In Sodium 100 Chloride 0.9% 100 ml @ 25 mls/hr IVPB Q12HR [facility] Rx #:[id number] D5-0.45% NaCl with KCl 220 220 100 30Meq/l 1,000 ml @ 20 mls /hr IV .Q24H [facility] Rx#: [id number] Potassium Phosphate 10 500 mmol In Sodium Chloride 0 .9% 250 ml @ 125 mls/hr IV Q2H [facility] Rx#:[id number] Voriconazole 360 mg In 250 250 Sodium Chloride 0.9% 250 ml @ 125 mls/hr IVPB Q12HR [facility] Rx#:[id number] arterial line 33 33 15 Intake, IV Titration 195.850 146.87 95.384 Amount Diltiazem 125 mg In 39.5 0 Sodium Chloride 0.9% 100 ml @ 5 MG/HR 5 mls/hr IV .Q24H [facility] Rx#:[id number] propofoL 1,000 mg In 156.350 146.87 95.384 Empty Bag 1 bag @ Titrate IV .Q0M [facility] Rx#: [id number] Tube Feeding 240 380 200 Blood Product 310 Rc Irr As1 Unit 310 [id number] Other 60 30 Output: Urine 410 585 605 Other: Voiding Method Indwelling Catheter Indwelling Catheter Indwelling Catheter ABP, PAP, CO, CI - Last Documented Arterial Blood Pressure 120/52 - Labs CBC & Chem 7: 07/16/21 05:02 07/16/21 05:02 Labs: Abnormal Lab Results - Last 24 Hours (Table) 07/11/21 07/15/21 07/15/21 Range/Units 17:36 08:37 17:38 WBC (3.8-10.6) k/uL RBC (3.80-5.40) m/uL Hgb (11.4-16.0) gm/dL Hct (34.0-46.0) % Plt Count (150-450) k/uL ABG pO2 (83-108) mmHg ABG HCO3 (21-25) mmol/L ABG Total CO2 (19-24) mmol/L ABG O2 Saturation (94-97) % Chloride (98-107) mmol/L BUN (7-17) mg/dL Glucose (74-99) mg/dL POC Glucose (mg/dL) 123 H (75-99) mg/dL Calcium (8.4-10.2) mg/dL Total Protein (6.3-8.2) g/dL Albumin (3.5-5.0) g/dL Crossmatch See Detail See Detail 07/16/21 07/16/21 07/16/21 Range/Units 00:38 05:00 05:02 WBC (3.8-10.6) k/uL RBC (3.80-5.40) m/uL Hgb (11.4-16.0) gm/dL Hct (34.0-46.0) % Plt Count (150-450) k/uL ABG pO2 157 H (83-108) mmHg ABG HCO3 28 H (21-25) mmol/L ABG Total CO2 29 H (19-24) mmol/L ABG O2 Saturation 99.4 H (94-97) % Chloride 114 H (98-107) mmol/L BUN 21 H (7-17) mg/dL Glucose 156 H (74-99) mg/dL POC Glucose (mg/dL) 138 H (75-99) mg/dL Calcium 7.7 L (8.4-10.2) mg/dL Total Protein 4.8 L (6.3-8.2) g/dL Albumin 2.1 L (3.5-5.0) g/dL Crossmatch 07/16/21 07/16/21 07/16/21 Range/Units 05:02 06:50 11:44 WBC 0.3 L* (3.8-10.6) k/uL RBC 2.69 L (3.80-5.40) m/uL Hgb 8.2 L D (11.4-16.0) gm/dL Hct 24.4 L (34.0-46.0) % Plt Count 46 L D (150-450) k/uL ABG pO2 (83-108) mmHg ABG HCO3 (21-25) mmol/L ABG Total CO2 (19-24) mmol/L ABG O2 Saturation (94-97) % Chloride (98-107) mmol/L BUN (7-17) mg/dL Glucose (74-99) mg/dL POC Glucose (mg/dL) 147 H 145 H (75-99) mg/dL Calcium (8.4-10.2) mg/dL Total Protein (6.3-8.2) g/dL Albumin (3.5-5.0) g/dL Crossmatch Microbiology - Last 24 Hours (Table) 07/09/21 13:00 Blood Culture - Final Blood No Growth after 144 hours
[2021-07-16] MEDS: LEVOFLOXACIN 750MG-D5W PMX 750 MG in DEXTROSE/WATER 1 150ML.BAG IVPB SCH (16:33)
--- NOTE | 2021-07-16 17:04 | PN ---
PROGRESS NOTE DATE OF SERVICE: 07/16/2021 REASON FOR FOLLOWUP: Febrile neutropenia and pneumonia. INTERVAL HISTORY: The patient is afebrile. The patient is hemodynamically stable. The patient's FiO2 is currently at 40%. No significant purulent secretions in the ET or any diarrhea per the nursing staff. PHYSICAL EXAMINATION: Blood pressure 135/56, pulse of 104, temperature 99.2. She is 97% on 40% FiO2. GENERAL DESCRIPTION: General description is a middle-aged female lying in bed in no distress. RESPIRATORY SYSTEM: Unlabored breathing. Clear to auscultation anteriorly. HEART: S1, S2. Regular rate and rhythm. ABDOMEN: Soft. No tenderness. LAB: Hemoglobin is 8.1, white count 0.3, BUN of 21, creatinine 0.94. DIAGNOSTIC IMPRESSION AND PLAN: Patient with febrile neutropenia concerning for pneumonia in this patient who is status post bronchoscopy. Cultures have been negative. The patient is currently covered with cefepime, Levaquin; to continue along with voriconazole and monitor clinical course closely. Continue supportive care. MMODL / LINDYN: [id number] /
[2021-07-16 17:32] LABS: Glucose,Whole Blood 127 mg/dL (75-99)
[2021-07-17] MEDS: ACYCLOVIR SODIUM 500 MG in SODIUM CHLORIDE 0.9% 100 ML IVPB SCH ×4 (01:38→22:33)
[2021-07-17] MEDS: CEFEPIME 2 GM in SODIUM CHLORIDE 0.9% 100 ML IVPB SCH ×2 (01:38→12:38)
[2021-07-17] MEDS: INSULIN ASPART (NovoLOG) 100 UNIT/ML VIAL SQ SCH ×4 (02:00→19:58)
[2021-07-17 02:01] LABS: Glucose,Whole Blood 128 mg/dL (75-99)
[2021-07-17 04:19] LABS: HCT 24.4 % (34.0-46.0); HGB 8.1 gm/dL (11.4-16.0); MCH 30.6 pg (25.0-35.0); MCHC 33.3 g/dL (31.0-37.0); MCV 91.9 fL (80.0-100.0); Mean Platelet Volume 10.9; RBC 2.65 m/uL (3.80-5.40); RDW 14.9 % (11.5-15.5)
[2021-07-17 04:28] LABS: WBC 0.5 k/uL (3.8-10.6)
[2021-07-17 04:29] LABS: Platelet Count 65 k/uL (150-450)
[2021-07-17] MEDS: D5-0.45% NACL WITH KCL 30MEQ/L 1,000 ML IV SCH (04:51)
[2021-07-17 04:55] LABS: Albumin 2.1 g/dL (3.5-5.0); Calcium 7.8 mg/dL (8.4-10.2); Magnesium 1.7 mg/dL (1.6-2.3); Phosphorus 2.4 mg/dL (2.5-4.5); Potassium 2.9 mmol/L (3.5-5.1); Total Bilirubin 0.4 mg/dL (0.2-1.3); Total Protein 4.6 g/dL (6.3-8.2)
[2021-07-17 05:24] LABS: Allen Test Performed? Yes
[2021-07-17 05:25] LABS: ABG HCO3 33 mmol/L (21-25); ABG PCO2 44 mmHg (35-45); ABG PH 7.49 (7.35-7.45); ABG PO2 74 mmHg (83-108); ABG TCO2 35 mmol/L (19-24)
[2021-07-17] MEDS: POTASSIUM BICARBONATE/CIT AC 20 MEQ TABLET.EFF NG-TUBE SCH ×3 (05:50→08:21)
[2021-07-17] MEDS: MAGNESIUM SULFATE-D5W PMX 1 GM in DEXTROSE/WATER 1 100ML.BAG IVPB SCH ×2 (06:59→08:20)
--- NOTE | 2021-07-17 07:27 | XR ---
EXAMINATION TYPE: XR chest 1V portable DATE OF EXAM: 07/17/2021 COMPARISON: 07/16/2021 HISTORY: SOB, Follow Up FINDINGS: Indwelling tubes and catheters are unchanged. Diffuse bilateral infiltrates persist with interval progression suggested. Stable appearance of the cardio-mediastinal structures at this time. Pleural effusion unchanged. IMPRESSION: 1. Diffuse bilateral infiltrates persist with interval progression suggested. Clinical correlation and follow up until resolution is recommended.
[2021-07-17] MEDS: ALBUTEROL NEBULIZED 2.5 MG/3 ML INHALATION SCH ×4 (07:34→19:23)
[2021-07-17] MEDS: PANTOPRAZOLE 40 MG/10 ML VIAL IV SCH (08:20)
[2021-07-17] MEDS: CHLORHEXIDINE GLUCONATE 15 ML CUP MUCOUS MEM SCH ×2 (08:20→20:21)
[2021-07-17] MEDS: FUROSEMIDE 10 MG/ML 2 ML VIAL IV SCH ×2 (08:20→20:20)
[2021-07-17] MEDS: SALT AND SODA MOUTHWASH 1,000 ML PO SCH ×4 (08:20→22:34)
[2021-07-17] MEDS: ZINC SULFATE 220 MG CAP PO SCH (08:20)
[2021-07-17] MEDS: PARoxetine 10 MG TAB PO SCH (08:23)
[2021-07-17] MEDS: CHOLESTYRAMINE (WITH SUGAR) 4 GM PACKET PO SCH ×2 (08:23→17:46)
--- NOTE | 2021-07-17 08:34 | XR ---
EXAMINATION TYPE: XR chest 1V portable DATE OF EXAM: 07/17/2021 COMPARISON: 07/17/2021 HISTORY: SOB, Follow Up FINDINGS: Indwelling tubes and catheters are unchanged. Diffuse bilateral infiltrates persist with interval improvement noted. Stable appearance of the cardio-mediastinal structures at this time. Pleural effusion unchanged. IMPRESSION: 1. Diffuse bilateral infiltrates persist with interval improvement noted.Clinical correlation and fo llow up until resolution is recommended.
[2021-07-17] MEDS: VORICONAZOLE IVPB SCH ×2 (09:11→20:20)
[2021-07-17] MEDS: SODIUM CHLORIDE 0.9% IVPB SCH ×2 (09:11→20:20)
--- NOTE | 2021-07-17 10:35 | P.PN ---
Subjective Progress Note Date: 07/17/21 07/17/2021, the patient is being seen for a follow-up. The patient is on a low dose propofol for now which is running at 25 mcg/kg per minute. She is easily able to arouse herself out of the propofol and she is able to communicate and follow some simple commands. She remains on a mechanical ventilator. Earlier this morning she was assist control of 24 with a tidal volume of 400 and PEEP of 8 with an FiO2 of 50%. Her blood gases showed a pH of 7.49 with a pCO2 of 44 and pO2 of 74. Peak airway pressure is 19. Chest x-ray is showing bilateral pulmonary infiltrates. Nevertheless, the infiltrates have been slowly improving and there is some slight interval improvement compared to earlier chest x-rays. Cultures of been all negative. White cell count is gradually improving is up to 0.5. Platelet count is up to 65 with a hemoglobin of 8.1. The patient was being diuresed with IV Lasix. The fluid balance is -2.7 L over the past 24 hours and the patient is receiving Lasix at a dose of 20 mg IV every 12 hours. She is afebrile. She is tolerating her enteral feeding for nutritional support which is in the form of vital high protein at the rate of 50 mL an hour. Potassium level is at 2.9 and needs to be replaced. No other significant events overnight. No hemodynamic instability. No fever. Objective - Vital Signs Vital signs: Vital Signs Temp 99.5 F 07/17/21 08:00 Pulse 89 07/17/21 10:00 Resp 24 07/17/21 10:00 BP 102/55 07/16/21 04:02 Pulse Ox 96 07/17/21 10:00 Intake & Output 07/16/21 07/17/21 07/17/21 18:59 06:59 18:59 Intake Total 7580.919 3546.218 886.213 Output Total 3205 2900 1275 Balance -1669.000 -1069.782 -388.787 Weight 96.6 kg Intake: IV 816 866 402 0.9 carriers 190 240 60 Acyclovir Sodium 500 mg 100 100 In Sodium Chloride 0.9% 100 ml @ 100 mls/hr IVPB Q8H [facility] Rx#:[id number] D5-0.45% NaCl with KCl 240 240 80 30Meq/l 1,000 ml @ 20 mls /hr IV .Q24H [facility] Rx#: [id number] Voriconazole 360 mg In 250 250 250 Sodium Chloride 0.9% 250 ml @ 125 mls/hr IVPB Q12HR [facility] Rx#:[id number] arterial line 36 36 12 Intake, IV Titration 100.000 274.218 254.213 Amount Cefepime 2 gm In Sodium 100 Chloride 0.9% 100 ml @ 25 mls/hr IVPB Q12H [facility] Rx# :[id number] Magnesium Sulfate-D5w Pmx 200 1 gm In Dextrose/Water 1 100ml.bag @ 100 mls/hr IVPB Q1H [facility] Rx#: [id number] propofoL 1,000 mg In 100.000 174.218 54.213 Empty Bag 1 bag @ Titrate IV .Q0M [facility] Rx#: [id number] Tube Feeding 530 600 200 Other 90 90 30 Output: Urine 3205 2900 1275 Other: Voiding Method Indwelling Catheter Indwelling Catheter Indwelling Catheter ABP, PAP, CO, CI - Last Documented Arterial Blood Pressure 116/39 - Exam Gen. appearance the patient is sedated, intubated on a mechanical ventilator. Orogastric and orotracheal tube are both in place. Head exam was generally normal. There was no scleral icterus or corneal arcus. Mucous membranes were moist. Neck was supple and without jugular venous distension, thyromegaly, or carotid bruits. Carotids were easily palpable bilaterally. There was no adenopathy. Lungs sounds are diminished and there are diffuse rhonchi heard throughout the lung his bilaterally. Otherwise the breath sounds are equal for now. No significant wheezes. Cardiac exam revealed the PMI to be normally situated and sized. The rhythm was regular and no extrasystoles were noted during several minutes of auscultation. The first and second heart sounds were normal and physiologic splitting of the second heart sound was noted. There were no murmurs, rubs, clicks, or gallops. Abdominal exam revealed normal bowel sounds. The abdomen was soft, non-tender, and without masses, organomegaly, or appreciable enlargement of the abdominal aorta. Examination of the extremities revealed easily palpable radial, femoral and pedal pulses. There was no cyanosis, clubbing or edema. Examination of the skin revealed no evidence of significant rashes, suspicious appearing nevi or other concerning lesions. The patient has petechia in the lower extremities bilaterally related to underlying thrombocytopenia. Few areas of bruising, not extensive. The patient has increased edema in lower extremities bilaterally. Neurologically, the patient is sedated currently on propofol. No focal neurological deficits. The patient is easily arousable and she is awake and she can communicate even while she is on a low dose of propofol. - Labs CBC & Chem 7: 07/17/21 04:00 07/17/21 04:00 Labs: Abnormal Lab Results - Last 24 Hours (Table) 07/16/21 07/16/21 07/17/21 Range/Units 11:44 17:31 01:59 WBC (3.8-10.6) k/uL RBC (3.80-5.40) m/uL Hgb (11.4-16.0) gm/dL Hct (34.0-46.0) % Plt Count (150-450) k/uL ABG pH (7.35-7.45) ABG pO2 (83-108) mmHg ABG HCO3 (21-25) mmol/L ABG Total CO2 (19-24) mmol/L Potassium (3.5-5.1) mmol/L Chloride (98-107) mmol/L BUN (7-17) mg/dL Glucose (74-99) mg/dL POC Glucose (mg/dL) 145 H 127 H 128 H (75-99) mg/dL Calcium (8.4-10.2) mg/dL Phosphorus (2.5-4.5) mg/dL Total Protein (6.3-8.2) g/dL Albumin (3.5-5.0) g/dL 07/17/21 07/17/21 07/17/21 Range/Units 04:00 04:00 05:17 WBC 0.5 L* (3.8-10.6) k/uL RBC 2.65 L (3.80-5.40) m/uL Hgb 8.1 L (11.4-16.0) gm/dL Hct 24.4 L (34.0-46.0) % Plt Count 65 L (150-450) k/uL ABG pH 7.49 H (7.35-7.45) ABG pO2 74 L (83-108) mmHg ABG HCO3 33 H (21-25) mmol/L ABG Total CO2 35 H (19-24) mmol/L Potassium 2.9 L (3.5-5.1) mmol/L Chloride 111 H (98-107) mmol/L BUN 22 H (7-17) mg/dL Glucose 143 H (74-99) mg/dL POC Glucose (mg/dL) (75-99) mg/dL Calcium 7.8 L (8.4-10.2) mg/dL Phosphorus 2.4 L (2.5-4.5) mg/dL Total Protein 4.6 L (6.3-8.2) g/dL Albumin 2.1 L (3.5-5.0) g/dL Assessment and Plan Plan: 1acute bilateral pneumonia with rapid progression of bilateral pulmonary infilt rates and the patient currently has extensive bilateral airspace disease and coarse interstitial pulmonary infiltrates, consider opportunistic infections especially with her underlying immunosuppression. The bronchioloalveolar lavage has been negative thus far. PCP stain of been negative. Legionella urine antigen was negative. Lavage with viral screen of the bronchioloalveolar lavage has been negative. COVID 19 testing was negative. The patient's regular bacterial cultures and the fungal cultures are negative. She remains on broad- spectrum antibiotics. 07/16/2021, oxygenation is improved. Chest x-ray findings are still showing diffuse bilateral pulmonary infiltrates consistent with pneumonia/acute lung injury/ARDS. Nevertheless, there has been interval improvement in oxygenation. Cultures remain negative and the patient remains afebrile. Remains on the same antibiotic coverage includes cefepime, vancomycin, Levaquin, acyclovir and voriconazole. 07/17/2021, the chest x-ray findings are improving slowly and the patient actually patient is also improving. The patient is currently on a PEEP of 8 with an FiO2 of 50%. Adequate oxygenation. Adequate ventilation. Slightly alkalotic because of diuresis. She is awake and alert on low-dose propofol and she is communicating. She remains on cefepime, Levaquin, acyclovir and voriconazole. The vancomycin trough is 33.2 on 07/12/2021. 2 acute hypoxic respiratory failure secondary to above and the patient has developed worsening pneumonia and hypoxemic respiratory failure, improving 3 shortness of breath secondary to but not limited to above mentioned pneumonia. 4 acute myeloid leukemia post induction chemotherapy, remains leukopenic, the white cell count is gradually improving 5 pancytopenia, the white cell count is up to 0.5. Platelet counts are also improving. There may be some early signs of recovery of the bone marrow post induction chemotherapy in a patient with AML. 6 Afebrile to having episodic fever on multiple occasions last week. 7 electrolytes disturbance, being managed and replaced 8 diarrhea, stool for C. diff has been negative, no diarrhea 9 paroxysmal atrial fibrillation, current rhythm is sinus and the patient will be taken off the Cardizem drip. Plan Keep the patient sedated with propofol, currently propofol is running at 35 mcg/kg per minute Continue ventilator support, drop the PEEP down to 12 and drop the FiO2 down to 40%. The differentiation remains decent, will drop the PEEP down to 10. Initiate enteral feeding for nutritional support Continue broad-spectrum antibiotic coverage pending further cultures Started patient on Lasix 20 mg IV every 12 hours Monitor hematologic profile and the patient's white cell count is improving Stop the Cardizem drip. Will not commit for a beta elisha or a calcium channel elisha at this point in time Echocardiogram to be completed and the patient is a preserved LV function with an ejection fraction of 50-55%. Feeding is the form of vital HP Drop the rate down to 18 and a PEEP down to 6. Keep the FiO2 of 50%. The patient's sedation holiday. Check weaning parameters in this patient for possible extubation today. Overall condition is gradually improving. Critically care evaluation was done more than 30 minutes. Time with Patient: Greater than 30
[2021-07-17] MEDS: DILTIAZEM 125 MG in SODIUM CHLORIDE 0.9% 100 ML IV SCH (11:21)
--- NOTE | 2021-07-17 11:41 | P.PN ---
Subjective Progress Note Date: 07/17/21 Pt is sedated on propofol on the ventilator. She is arousable and follows simple commands. On broad spectrum abx: vanco, cefepime, acyclovir, voriconazole. CXR with b/l pulm infiltrates - improving. Pancytopenic, improving WBC count, PLT, stable Hgb. Objective - Vital Signs Vital signs: Vital Signs Temp 99.5 F 07/17/21 08:00 Pulse 99 07/17/21 11:18 Resp 24 07/17/21 11:18 BP 102/55 07/16/21 04:02 Pulse Ox 94 L 07/17/21 11:00 Intake & Output 07/16/21 07/17/21 07/17/21 18:59 06:59 18:59 Intake Total 3882.311 0225.218 977.714 Output Total 3205 2900 1625 Balance -1669.000 -1069.782 -647.286 Weight 96.6 kg Intake: IV 816 866 435 0.9 carriers 190 240 70 Acyclovir Sodium 500 mg 100 100 In Sodium Chloride 0.9% 100 ml @ 100 mls/hr IVPB Q8H [facility] Rx#:[id number] D5-0.45% NaCl with KCl 240 240 100 30Meq/l 1,000 ml @ 20 mls /hr IV .Q24H [facility] Rx#: [id number] Voriconazole 360 mg In 250 250 250 Sodium Chloride 0.9% 250 ml @ 125 mls/hr IVPB Q12HR [facility] Rx#:[id number] arterial line 36 36 15 Intake, IV Titration 100.000 274.218 262.714 Amount Cefepime 2 gm In Sodium 100 Chloride 0.9% 100 ml @ 25 mls/hr IVPB Q12H [facility] Rx# :[id number] Magnesium Sulfate-D5w Pmx 200 1 gm In Dextrose/Water 1 100ml.bag @ 100 mls/hr IVPB Q1H [facility] Rx#: [id number] propofoL 1,000 mg In 100.000 174.218 62.714 Empty Bag 1 bag @ Titrate IV .Q0M [facility] Rx#: [id number] Tube Feeding 530 600 250 Other 90 90 30 Output: Urine 3205 2900 1625 Other: Voiding Method Indwelling Catheter Indwelling Catheter Indwelling Catheter ABP, PAP, CO, CI - Last Documented Arterial Blood Pressure 98/41 - Exam Gen: intubated, sedated HEENT: normocephalic, atraumatic, good hearing acuity, moist mucous membranes Resp: good air exchange, breathing comfortably with no accessory muscle use CVS: good distal perfusion x 4, GI: soft, NTTP, ND : no SPT, no CVAT, putnam catheter is present MSK: no pitting edema, no clubbing Neuro: non-focal, moving all extremities - Labs CBC & Chem 7: 07/17/21 04:00 07/17/21 04:00 Labs: Abnormal Lab Results - Last 24 Hours (Table) 07/16/21 07/16/21 07/17/21 Range/Units 11:44 17:31 01:59 WBC (3.8-10.6) k/uL RBC (3.80-5.40) m/uL Hgb (11.4-16.0) gm/dL Hct (34.0-46.0) % Plt Count (150-450) k/uL ABG pH (7.35-7.45) ABG pO2 (83-108) mmHg ABG HCO3 (21-25) mmol/L ABG Total CO2 (19-24) mmol/L Potassium (3.5-5.1) mmol/L Chloride (98-107) mmol/L BUN (7-17) mg/dL Glucose (74-99) mg/dL POC Glucose (mg/dL) 145 H 127 H 128 H (75-99) mg/dL Calcium (8.4-10.2) mg/dL Phosphorus (2.5-4.5) mg/dL Total Protein (6.3-8.2) g/dL Albumin (3.5-5.0) g/dL 07/17/21 07/17/21 07/17/21 Range/Units 04:00 04:00 05:17 WBC 0.5 L* (3.8-10.6) k/uL RBC 2.65 L (3.80-5.40) m/uL Hgb 8.1 L (11.4-16.0) gm/dL Hct 24.4 L (34.0-46.0) % Plt Count 65 L (150-450) k/uL ABG pH 7.49 H (7.35-7.45) ABG pO2 74 L (83-108) mmHg ABG HCO3 33 H (21-25) mmol/L ABG Total CO2 35 H (19-24) mmol/L Potassium 2.9 L (3.5-5.1) mmol/L Chloride 111 H (98-107) mmol/L BUN 22 H (7-17) mg/dL Glucose 143 H (74-99) mg/dL POC Glucose (mg/dL) (75-99) mg/dL Calcium 7.8 L (8.4-10.2) mg/dL Phosphorus 2.4 L (2.5-4.5) mg/dL Total Protein 4.6 L (6.3-8.2) g/dL Albumin 2.1 L (3.5-5.0) g/dL Assessment and Plan Assessment: Neutropenic fevers Acute myelogenous leukemia Pancytopenia, chemo induced Pneumonia Acute hypoxic respiratory failure, vent dependent ARDS Diarrhea Sepsis without septic shock - White blood cell count and platelets began increase of 07/16 -Covid negative, legionella urine antigen negative, Aspergillus IgE negative - all cultures negative to date. - PCP stain is negative - bronch 07/11 with cultures negative to date. - ID, Pulm, Heme/onc recs appreciated - Continue with vanco, cefepime, voriconzaole, levaquin, and acyclovir - monitor fever profile - Fecal lactoferrin +, C diff negative, stool cultures negative - cholestyramine - s/p multiple units of pRBC and Plts - follow CBC and transfuse as indicated - Viral studies negative. - vent management per pulm - 1, 3 - beta- D- glucan pending - galactomannan pending A fib with RVR, currently in normal sinus rhythm -Cardizem drip was discontinued on 07/15. - No anticoagulation due to thrombocytopenia and high risk of bleeding - tele - echo essential within normal limits - consider cardio consult if echo is abnormal Episode of tremors - EEG negative - CT head negative - neurology recs Moderate to severe MR Hypokalemia Hypomagnesemia Hypophosphatemia Hypocalcemia - replace as indicated Poor over all prognosis. Awaiting direct AB stain results from [facility] [id number], not currently available.
[2021-07-17 11:45] LABS: Glucose,Whole Blood 135 mg/dL (75-99)
[2021-07-17 13:33] LABS: ABG Base Excess 15.4 mmol/L; ABG HCO3 38 mmol/L (21-25); ABG PCO2 46 mmHg (35-45); ABG PH 7.53 (7.35-7.45); ABG PO2 67 mmHg (83-108); ABG TCO2 40 mmol/L (19-24)
--- NOTE | 2021-07-17 13:35 | P.PN ---
Subjective Progress Note Date: 07/17/21 Principal diagnosis: AML, subsequent neutropenic fever In follow-up today patient is intubated but, she is awake. When asked how she was doing she gave a thumbs up. She is calm and communicating in a way that you know she is understanding. Objective - Vital Signs Vital signs: Vital Signs Temp 99.1 F 07/17/21 12:00 Pulse 90 07/17/21 12:00 Resp 18 07/17/21 12:00 BP 102/55 07/16/21 04:02 Pulse Ox 98 07/17/21 12:00 Intake & Output 07/16/21 07/17/21 07/17/21 18:59 06:59 18:59 Intake Total 2600.399 1767.218 989.112 Output Total 3205 2900 1625 Balance -1669.000 -1069.782 -635.888 Weight 96.6 kg Intake: IV 816 866 435 0.9 carriers 190 240 70 Acyclovir Sodium 500 mg 100 100 In Sodium Chloride 0.9% 100 ml @ 100 mls/hr IVPB Q8H [facility] Rx#:[id number] D5-0.45% NaCl with KCl 240 240 100 30Meq/l 1,000 ml @ 20 mls /hr IV .Q24H [facility] Rx#: [id number] Voriconazole 360 mg In 250 250 250 Sodium Chloride 0.9% 250 ml @ 125 mls/hr IVPB Q12HR [facility] Rx#:[id number] arterial line 36 36 15 Intake, IV Titration 100.000 274.218 274.112 Amount Cefepime 2 gm In Sodium 100 Chloride 0.9% 100 ml @ 25 mls/hr IVPB Q12H [facility] Rx# :[id number] Magnesium Sulfate-D5w Pmx 200 1 gm In Dextrose/Water 1 100ml.bag @ 100 mls/hr IVPB Q1H [facility] Rx#: [id number] propofoL 1,000 mg In 100.000 174.218 74.112 Empty Bag 1 bag @ Titrate IV .Q0M [facility] Rx#: [id number] Tube Feeding 530 600 250 Other 90 90 30 Output: Urine 3205 2900 1625 Other: Voiding Method Indwelling Catheter Indwelling Catheter Indwelling Catheter ABP, PAP, CO, CI - Last Documented Arterial Blood Pressure 116/49 - Constitutional General appearance: Present: average body habitus, cooperative, no acute distress - EENT Eyes: Present: anicteric sclerae, EOMI ENT: Present: hearing grossly normal - Respiratory Respiratory: bilateral: CTA - Cardiovascular Rhythm: regular Heart sounds: normal: S1, S2 Abnormal Heart Sounds: Absent: systolic murmur, diastolic murmur, rub, S3 Gallop, S4 Gallop, click, other - Peripheral edema leg Peripheral Edema: bilateral: Trace - Gastrointestinal General gastrointestinal: Present: normal bowel sounds, soft - Musculoskeletal Musculoskeletal: Present: generalized weakness - Psychiatric Psychiatric: Present: A&O x's 3 - Labs CBC & Chem 7: 07/17/21 04:00 07/17/21 12:46 Labs: Abnormal Lab Results - Last 24 Hours (Table) 07/16/21 07/17/21 07/17/21 Range/Units 17:31 01:59 04:00 WBC 0.5 L* (3.8-10.6) k/uL RBC 2.65 L (3.80-5.40) m/uL Hgb 8.1 L (11.4-16.0) gm/dL Hct 24.4 L (34.0-46.0) % Plt Count 65 L (150-450) k/uL ABG pH (7.35-7.45) ABG pO2 (83-108) mmHg ABG HCO3 (21-25) mmol/L ABG Total CO2 (19-24) mmol/L Potassium (3.5-5.1) mmol/L Chloride (98-107) mmol/L BUN (7-17) mg/dL Glucose (74-99) mg/dL POC Glucose (mg/dL) 127 H 128 H (75-99) mg/dL Calcium (8.4-10.2) mg/dL Phosphorus (2.5-4.5) mg/dL Total Protein (6.3-8.2) g/dL Albumin (3.5-5.0) g/dL 07/17/21 07/17/21 07/17/21 Range/Units 04:00 05:17 11:44 WBC (3.8-10.6) k/uL RBC (3.80-5.40) m/uL Hgb (11.4-16.0) gm/dL Hct (34.0-46.0) % Plt Count (150-450) k/uL ABG pH 7.49 H (7.35-7.45) ABG pO2 74 L (83-108) mmHg ABG HCO3 33 H (21-25) mmol/L ABG Total CO2 35 H (19-24) mmol/L Potassium 2.9 L (3.5-5.1) mmol/L Chloride 111 H (98-107) mmol/L BUN 22 H (7-17) mg/dL Glucose 143 H (74-99) mg/dL POC Glucose (mg/dL) 135 H (75-99) mg/dL Calcium 7.8 L (8.4-10.2) mg/dL Phosphorus 2.4 L (2.5-4.5) mg/dL Total Protein 4.6 L (6.3-8.2) g/dL Albumin 2.1 L (3.5-5.0) g/dL 07/17/21 Range/Units 12:46 WBC (3.8-10.6) k/uL RBC (3.80-5.40) m/uL Hgb (11.4-16.0) gm/dL Hct (34.0-46.0) % Plt Count (150-450) k/uL ABG pH (7.35-7.45) ABG pO2 (83-108) mmHg ABG HCO3 (21-25) mmol/L ABG Total CO2 (19-24) mmol/L Potassium 2.9 L (3.5-5.1) mmol/L Chloride (98-107) mmol/L BUN (7-17) mg/dL Glucose (74-99) mg/dL POC Glucose (mg/dL) (75-99) mg/dL Calcium (8.4-10.2) mg/dL Phosphorus (2.5-4.5) mg/dL Total Protein (6.3-8.2) g/dL Albumin (3.5-5.0) g/dL - Imaging and Cardiology Chest x-ray: report reviewed Assessment and Plan (1) Neutropenic fever Narrative/Plan: T-max overnight 101.2. Patient's white count did double. Dr. Forte reviewed with nursing and critical care team that as patient's white blood cells begin to recuperate there is the potential for cytokine release syndrome the may lead to acute pulm inflammation which will be temporary. Current Visit: Yes Status: Acute Priority: High Code(s): D70.9 - NEUTROPENIA, UNSPECIFIED; R50.81 - FEVER PRESENTING WITH CONDITIONS CLASSIFIED ELSEWHERE SNOMED Code(s): 249159064 (2) Pancytopenia due to antineoplastic chemotherapy Narrative/Plan: Hemoglobin and platelets are stabilizing post induction. White blood cell count is beginning to recuperate. Transfuse for hemoglobin less than 7, platelets less than 10,000 or if symptomatic. Irradiated blood products only. No GCS F until patient has confirmed remission. Current Visit: Yes Status: Acute Priority: High Code(s): D61.810 - ANTINEOPLASTIC CHEMOTHERAPY INDUCED PANCYTOPENIA; T45.1X5A - ADVERSE EFFECT OF ANTINEOPLASTIC AND IMMUNOSUP DRUGS, INIT SNOMED Code(s): 399374037041147 (3) Respiratory failure Narrative/Plan: Critical Care team, ICU management Current Visit: Yes Status: Acute Priority: High Code(s): J96.90 - RESPIRATORY FAILURE, UNSP, UNSP W HYPOXIA OR HYPERCAPNIA SNOMED Code(s): 232124069 (4) AML (acute myeloid leukemia) Narrative/Plan: Patient is status post induction chemotherapy. 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 This is been held due to patient's acute situation. We will consider resuming once patient is extubated. Current Visit: Yes Status: Acute Priority: High Code(s): C92.00 - ACUTE MYELOBLASTIC LEUKEMIA, NOT HAVING ACHIEVED REMISSION SNOMED Code(s): 57525059 Plan: Doctor attests: I performed a history and physical examination of this patient, developed impression and plan of care. Discussed with dictator. I agree with d ictators note, documented as a scribe.
--- NOTE | 2021-07-17 13:55 | PN ---
PROGRESS NOTE DATE OF SERVICE: 07/17/2021. REASON FOR FOLLOW UP: Febrile neutropenia pneumonia. INTERVAL HISTORY: Patient did spike another fever last evening. The patient afebrile since then. The patient is hemodynamically stable. Not on pressor support. FiO2 is currently stable at 50%. No significant purulent secretions thru the ET, diarrhea or any other changes reported by the nursing staff. PHYSICAL EXAMINATION: Blood pressure 140/81, pulse of 96. Temperature is 99.5. He is 94% on 50% FiO2. General description is a middle-aged female lying in bed in no distress. Respiratory system: Unlabored breathing, decreased breath sounds in the bases. No wheeze. Heart S1, S2. Regular rate and rhythm. Abdomen soft, no tenderness. LABS: White count of 0.5, BUN of 22, creatinine 0.99. DIAGNOSTIC IMPRESSION AND PLAN: Patient with febrile neutropenia concerning for pneumonia, versus VRE the patient is currently covered with cefepime, Levaquin, voriconazole to continue while monitoring clinical course closely. Continue supportive care. at the bedside. Questions were answered. MMODL / IJN: [id number] /
[2021-07-17] MEDS: LORazepam 2 MG/ML INJ IV PRN (14:43)
[2021-07-17] MEDS: LEVOFLOXACIN 750MG-D5W PMX 750 MG in DEXTROSE/WATER 1 150ML.BAG IVPB SCH (17:47)
[2021-07-17] MEDS: POTASSIUM CHLORIDE 20 MEQ in WATER FOR INJECTION 1 100ML.BAG IVPB SCH ×3 (17:48→22:33)
[2021-07-17] MEDS ORDERED: CISATRACURIUM 2 MG/ML 5 ML VIAL IV ONE (18:03)
--- NOTE | 2021-07-17 18:46 | XR ---
EXAMINATION TYPE: XR chest 1V portable DATE OF EXAM: 07/17/2021 COMPARISON: Today HISTORY: Respiratory failure TECHNIQUE: FINDINGS: There is endotracheal tube is 10 mm from the olivia. There is nasogastric tube in the stoma ch. There is moderate airspace edema. There are chest leads. There is right subclavian catheter with tip in the superior vena cava. IMPRESSION: There is moderately severe pulmonary edema that is slightly worse than exam this morning.
[2021-07-17 18:59] LABS: ABG Base Excess 12.7 mmol/L; ABG HCO3 38 mmol/L (21-25); ABG PCO2 66 mmHg (35-45); ABG PH 7.37 (7.35-7.45); ABG PO2 147 mmHg (83-108); ABG TCO2 40 mmol/L (19-24)
[2021-07-17 19:03] LABS: Allen Test Performed? no
--- NOTE | 2021-07-17 19:18 | P.PCN ---
Date of Procedure: 07/17/21 Preoperative Diagnosis: acute bilateral pneumonia Postoperative Diagnosis: acute bilateral pneumonia Procedure(s) Performed: Intubation Anesthesia: GETA Surgeon: Felix Sanabria Condition: critical Disposition: ICU Operative Findings: Intubation: Indication: Respiratory compromise.the patient developed acute hypoxic respiratory failure post extubation and the patient had to be reintubated. A time-out was completed verifying correct patient, procedure, site, positioning, and implant(s) or special equipment if applicable. The patient was positioned appropriately and a #[8] endotracheal tube was placed under direct laryngoscopy. The tube was anchored at 22 cm at the teeth. Correct placement was confirmed by presence of bilateral breath sounds without air sounds in the abdomen on auscultation. An end-tidal CO2 monitor was also used to confirm tracheal placement of the ET tube. A chest x-ray was ordered to assess for pneumothorax and verify endotracheal tube placement. The patient tolerated the procedure well and there were no complications.
[2021-07-17 19:53] LABS: Glucose,Whole Blood 128 mg/dL (75-99)
[2021-07-17] MEDS: NOREPINEPHRINE 4 MG in SODIUM CHLORIDE 0.9% 250 ML IV SCH (21:47)
[2021-07-18 00:58] LABS: Glucose,Whole Blood 123 mg/dL (75-99)
[2021-07-18] MEDS: CEFEPIME 2 GM in SODIUM CHLORIDE 0.9% 100 ML IVPB SCH ×3 (01:02→23:39)
[2021-07-18] MEDS: INSULIN ASPART (NovoLOG) 100 UNIT/ML VIAL SQ SCH ×4 (01:03→18:49)
[2021-07-18 05:00] LABS: ABG Base Excess 14.5 mmol/L; ABG HCO3 38 mmol/L (21-25); ABG Oxygen Saturation 99.5 % (94-97); ABG PCO2 54 mmHg (35-45); ABG PH 7.46 (7.35-7.45); ABG PO2 184 mmHg (83-108); ABG TCO2 40 mmol/L (19-24)
[2021-07-18 05:05] LABS: HCT 25.4 % (34.0-46.0); HGB 8.5 gm/dL (11.4-16.0); MCH 30.5 pg (25.0-35.0); MCHC 33.3 g/dL (31.0-37.0); MCV 91.6 fL (80.0-100.0); Mean Platelet Volume 10.2; RBC 2.78 m/uL (3.80-5.40); RDW 14.8 % (11.5-15.5)
[2021-07-18 05:07] LABS: Allen Test Performed? no
[2021-07-18 05:11] LABS: Calcium 7.7 mg/dL (8.4-10.2); Magnesium 1.9 mg/dL (1.6-2.3); Potassium 3.5 mmol/L (3.5-5.1); Total Bilirubin 0.5 mg/dL (0.2-1.3); Total Protein 4.6 g/dL (6.3-8.2)
[2021-07-18 05:13] LABS: Platelet Count 109 k/uL (150-450)
[2021-07-18] MEDS: ACYCLOVIR SODIUM 500 MG in SODIUM CHLORIDE 0.9% 100 ML IVPB SCH ×3 (05:28→22:30)
[2021-07-18] MEDS: POTASSIUM BICARBONATE/CIT AC 20 MEQ TABLET.EFF NG-TUBE SCH ×2 (05:32→07:07)
[2021-07-18 07:13] LABS: Anisocytosis (M) Present; Poikilocytosis (M) Present
[2021-07-18 07:14] LABS: Polychromasia Present
--- NOTE | 2021-07-18 07:16 | XR ---
EXAMINATION TYPE: XR chest 1V portable DATE OF EXAM: 07/18/2021 COMPARISON: 07/17/2021 HISTORY: Shortness of breath TECHNIQUE: Single frontal view of the chest is obtained. FINDINGS: ET tube is low in position 0.5 cm above olivia. NG tube noted. PICC line seen and there is a diffuse interstitial pattern with bilateral infiltrate and pleural effusion. No pneumothorax. Hear t size normal. IMPRESSION: 1. Diffuse pleural-parenchymal changes correlate for ARDS, pulmonary edema or diffuse pneumonia. 2. ET tube is low in position only 0.5 cm above the olivia.
[2021-07-18] MEDS: ZINC SULFATE 220 MG CAP PO SCH (08:09)
[2021-07-18] MEDS: CHLORHEXIDINE GLUCONATE 15 ML CUP MUCOUS MEM SCH ×2 (08:09→21:14)
[2021-07-18] MEDS: SALT AND SODA MOUTHWASH 1,000 ML PO SCH ×4 (08:09→21:14)
[2021-07-18] MEDS: PANTOPRAZOLE 40 MG/10 ML VIAL IV SCH (08:09)
[2021-07-18] MEDS: PARoxetine 10 MG TAB PO SCH (08:10)
[2021-07-18] MEDS: SODIUM CHLORIDE 0.9% IVPB SCH ×2 (08:10→21:14)
[2021-07-18] MEDS: CHOLESTYRAMINE (WITH SUGAR) 4 GM PACKET PO SCH ×2 (08:10→18:44)
[2021-07-18] MEDS: VORICONAZOLE IVPB SCH ×2 (08:10→21:14)
[2021-07-18] MEDS: FUROSEMIDE 10 MG/ML 2 ML VIAL IV SCH ×2 (08:10→21:14)
[2021-07-18] MEDS: ALBUTEROL NEBULIZED 2.5 MG/3 ML INHALATION SCH ×4 (08:27→19:28)
[2021-07-18] MEDS ORDERED: POTASSIUM BICARBONATE/CIT AC 20 MEQ TABLET.EFF NG-TUBE SCH (09:00)
--- NOTE | 2021-07-18 11:24 | P.PN ---
Subjective Progress Note Date: 07/18/21 Pt is still responsive to commands, easily arousable. Had to be re-intubated yesterday. On propofol at 35mcg, on 0.03 levophed. Continues BS Abx: vanc, cefepime, levoquin, voriconazole. No infx source identified. UOP is good. HDS. Afebrile. WBC improved to 1 from 0.5, PLTs increased to 105, Hgb stable. Objective - Vital Signs Vital signs: Vital Signs Temp 98.5 F 07/18/21 08:00 Pulse 90 07/18/21 10:00 Resp 16 07/18/21 10:00 BP 102/55 07/16/21 04:02 Pulse Ox 96 07/18/21 10:00 Intake & Output 07/17/21 07/18/21 07/18/21 18:59 06:59 18:59 Intake Total 0140.758 1122.912 695.648 Output Total 2700 1350 950 Balance -1319.357 313.912 -254.352 Weight 92.8 kg 92.8 kg Intake: IV 826 1023 152 0.9 carriers 200 220 60 Acyclovir Sodium 500 mg 100 In Sodium Chloride 0.9% 100 ml @ 100 mls/hr IVPB Q8H [facility] Rx#:[id number] D5-0.45% NaCl with KCl 240 220 80 30Meq/l 1,000 ml @ 20 mls /hr IV .Q24H [facility] Rx#: [id number] Levofloxacin 750Mg-D5w 100 Pmx 750 mg In Dextrose/ Water 1 150ml.bag @ 100 mls/hr IVPB Q24H [facility] Rx#: [id number] Potassium Chloride 20 meq 200 In Water For Injection 1 100ml.bag @ 50 mls/hr IVPB Q2H [facility] Rx#: [id number] Voriconazole 360 mg In 250 250 Sodium Chloride 0.9% 250 ml @ 125 mls/hr IVPB Q12HR [facility] Rx#:[id number] arterial line 36 33 12 Intake, IV Titration 274.643 130.912 313.648 Amount Magnesium Sulfate-D5w Pmx 200 1 gm In Dextrose/Water 1 100ml.bag @ 100 mls/hr IVPB Q1H [facility] Rx#: [id number] Norepinephrine 4 mg In 213.648 Sodium Chloride 0.9% 250 ml @ 0.05 MCG/KG/MIN 18. 402 mls/hr IV .[id number] [facility] Rx#:[id number] propofoL 1,000 mg In 74.643 130.912 100 Empty Bag 1 bag @ Titrate IV .Q0M [facility] Rx#: [id number] Tube Feeding 250 450 200 Other 30 60 30 Output: Urine 2700 1350 950 Other: Voiding Method Indwelling Catheter Indwelling Catheter Indwelling Catheter ABP, PAP, CO, CI - Last Documented Arterial Blood Pressure 126/52 - Exam Gen: intubated, sedated HEENT: normocephalic, atraumatic, good hearing acuity, moist mucous membranes Resp: good air exchange, breathing comfortably with no accessory muscle use CVS: good distal perfusion x 4, GI: soft, NTTP, ND : no SPT, no CVAT, putnam catheter is present MSK: no pitting edema, no clubbing Neuro: non-focal, moving all extremities - Labs CBC & Chem 7: 07/18/21 04:05 07/18/21 04:05 Labs: Abnormal Lab Results - Last 24 Hours (Table) 07/17/21 07/17/21 07/17/21 Range/Units 11:44 12:46 13:26 WBC (3.8-10.6) k/uL RBC (3.80-5.40) m/uL Hgb (11.4-16.0) gm/dL Hct (34.0-46.0) % Plt Count (150-450) k/uL ABG pH 7.53 H (7.35-7.45) ABG pCO2 46 H (35-45) mmHg ABG pO2 67 L (83-108) mmHg ABG HCO3 38 H (21-25) mmol/L ABG Total CO2 40 H (19-24) mmol/L ABG O2 Saturation (94-97) % Sodium (137-145) mmol/L Potassium 2.9 L (3.5-5.1) mmol/L Chloride (98-107) mmol/L Carbon Dioxide (22-30) mmol/L BUN (7-17) mg/dL Glucose (74-99) mg/dL POC Glucose (mg/dL) 135 H (75-99) mg/dL Calcium (8.4-10.2) mg/dL Total Protein (6.3-8.2) g/dL Albumin (3.5-5.0) g/dL 07/17/21 07/17/21 07/18/21 Range/Units 18:57 19:52 00:56 WBC (3.8-10.6) k/uL RBC (3.80-5.40) m/uL Hgb (11.4-16.0) gm/dL Hct (34.0-46.0) % Plt Count (150-450) k/uL ABG pH (7.35-7.45) ABG pCO2 66 H (35-45) mmHg ABG pO2 147 H (83-108) mmHg ABG HCO3 38 H (21-25) mmol/L ABG Total CO2 40 H (19-24) mmol/L ABG O2 Saturation 99.0 H (94-97) % Sodium (137-145) mmol/L Potassium (3.5-5.1) mmol/L Chloride (98-107) mmol/L Carbon Dioxide (22-30) mmol/L BUN (7-17) mg/dL Glucose (74-99) mg/dL POC Glucose (mg/dL) 128 H 123 H (75-99) mg/dL Calcium (8.4-10.2) mg/dL Total Protein (6.3-8.2) g/dL Albumin (3.5-5.0) g/dL 07/18/21 07/18/21 07/18/21 Range/Units 04:05 04:05 04:58 WBC 1.0 L* (3.8-10.6) k/uL RBC 2.78 L (3.80-5.40) m/uL Hgb 8.5 L (11.4-16.0) gm/dL Hct 25.4 L (34.0-46.0) % Plt Count 109 L D (150-450) k/uL ABG pH 7.46 H (7.35-7.45) ABG pCO2 54 H (35-45) mmHg ABG pO2 184 H (83-108) mmHg ABG HCO3 38 H (21-25) mmol/L ABG Total CO2 40 H (19-24) mmol/L ABG O2 Saturation 99.5 H (94-97) % Sodium 146 H (137-145) mmol/L Potassium (3.5-5.1) mmol/L Chloride 109 H (98-107) mmol/L Carbon Dioxide 35 H (22-30) mmol/L BUN 19 H (7-17) mg/dL Glucose 143 H (74-99) mg/dL POC Glucose (mg/dL) (75-99) mg/dL Calcium 7.7 L (8.4-10.2) mg/dL Total Protein 4.6 L (6.3-8.2) g/dL Albumin 2.0 L (3.5-5.0) g/dL Assessment and Plan Assessment: Neutropenic fevers Acute myelogenous leukemia Pancytopenia, chemo induced Pneumonia Acute hypoxic respiratory failure, vent dependent ARDS Diarrhea Sepsis without septic shock - White blood cell count and platelets began increase of 07/16 - Covid negative, legionella urine antigen negative, Aspergillus IgE negative - all cultures negative to date. - PCP stain is negative - bronch 07/11 with cultures negative to date. - ID, Pulm, Heme/onc recs appreciated - Continue with vanco, cefepime, voriconzaole, levaquin, and acyclovir - monitor fever profile - Fecal lactoferrin +, C diff negative, stool cultures negative - cholestyramine - s/p multiple units of pRBC and Plts - follow CBC and transfuse as indicated - Viral studies negative. - vent management per pulm - 1, 3 - beta- D- glucan pending (ordered 07/11; turn around time is usually 5 days) - galactomannan pending (ordered on 07/17; turn around time is usually 3 days) A fib with RVR, currently in normal sinus rhythm -Cardizem drip was discontinued on 07/15. - No anticoagulation due to thrombocytopenia and high risk of bleeding - tele - echo essential within normal limits - consider cardio consult if echo is abnormal Episode of tremors - EEG negative - CT head negative - neurology recs Moderate to severe MR Hypokalemia Hypomagnesemia Hypophosphatemia Hypocalcemia - replace as indicated Poor over all prognosis, however, improving this admission Awaiting direct AB stain results from [facility] [id number], not curren tly available.
[2021-07-18 12:00] LABS: Glucose,Whole Blood 131 mg/dL (75-99)
--- NOTE | 2021-07-18 12:43 | P.PN ---
Subjective Progress Note Date: 07/18/21 07/18/2021, the patient is being seen for a follow-up. Noted the patient was extubated yesterday and within 4-5 hours, the patient decompensated and the patient had to be reintubated back again. I performed in the intubation process. The patient is currently back on a mechanical ventilator. This m orning, the patient is sedated with propofol which is currently running at 30 mics are as per kilogram per minute. Post intubation, she became slightly hypotensive. Overnight she was given another bolus of half liter of normal saline and she was also placed on norepinephrine infusion which is currently running at 0.0 mcg/kg per minute. She is calm and comfortable and suggest a mechanical ventilator. She is an assist-control mode at the rate of 60 without abnormal 400 and PEEP of 10 with an FiO2 of 60%. Chest x-ray showing diffuse bilateral pulmonary infiltrates. The patient is afebrile. He remains on a broad-spectrum antibiotic coverage including a combination of cefepime, Levaquin, voriconazole and acyclovir. Cultures of been all negative. The patient is afebrile. Hematologically, her numbers are improving the patient's white cell count is up to 1 with a hemoglobin of 8.5 and a platelet count of 109. Blood gases from today shows a pH of 7.46 with a pCO2 of 54 and pO2 of 84. This was on FiO2 of 60%. BUN is at 19 with a creatinine of 0.9. Electrolytes are all stable. Cultures of been all negative. The patient was started back on enteral feeding for nutritional support and the patient is currently on vital high protein at the rate of 50 mL an hour. She is also on D5 half-normal saline at the rate of 20 and an hour. Objective - Vital Signs Vital signs: Vital Signs Temp 98.9 F 07/18/21 12:00 Pulse 92 07/18/21 12:05 Resp 18 07/18/21 12:05 BP 102/55 07/16/21 04:02 Pulse Ox 98 07/18/21 12:00 Intake & Output 07/17/21 07/18/21 07/18/21 18:59 06:59 18:59 Intake Total 9410.865 3929.912 922.321 Output Total 2700 1350 1500 Balance -1319.357 313.912 -577.679 Weight 92.8 kg 92.8 kg Intake: IV 826 1023 238 0.9 carriers 200 220 100 Acyclovir Sodium 500 mg 100 In Sodium Chloride 0.9% 100 ml @ 100 mls/hr IVPB Q8H [facility] Rx#:[id number] D5-0.45% NaCl with KCl 240 220 120 30Meq/l 1,000 ml @ 20 mls /hr IV .Q24H [facility] Rx#: [id number] Levofloxacin 750Mg-D5w 100 Pmx 750 mg In Dextrose/ Water 1 150ml.bag @ 100 mls/hr IVPB Q24H [facility] Rx#: [id number] Potassium Chloride 20 meq 200 In Water For Injection 1 100ml.bag @ 50 mls/hr IVPB Q2H [facility] Rx#: [id number] Voriconazole 360 mg In 250 250 Sodium Chloride 0.9% 250 ml @ 125 mls/hr IVPB Q12HR [facility] Rx#:[id number] arterial line 36 33 18 Intake, IV Titration 274.643 130.912 324.321 Amount Magnesium Sulfate-D5w Pmx 200 1 gm In Dextrose/Water 1 100ml.bag @ 100 mls/hr IVPB Q1H [facility] Rx#: [id number] Norepinephrine 4 mg In 224.321 Sodium Chloride 0.9% 250 ml @ 0.05 MCG/KG/MIN 18. 402 mls/hr IV .[id number] [facility] Rx#:[id number] propofoL 1,000 mg In 74.643 130.912 100 Empty Bag 1 bag @ Titrate IV .Q0M [facility] Rx#: [id number] Tube Feeding 250 450 300 Other 30 60 60 Output: Urine 2700 1350 1500 Other: Voiding Method Indwelling Catheter Indwelling Catheter Indwelling Catheter ABP, PAP, CO, CI - Last Documented Arterial Blood Pressure 100/38 - Exam Gen. appearance the patient is sedated, intubated on a mechanical ventilator. Orogastric and orotracheal tube are both in place. Head exam was generally normal. There was no scleral icterus or corneal arcus. Mucous membranes were moist. Neck was supple and without jugular venous distension, thyromegaly, or carotid bruits. Carotids were easily palpable bilaterally. There was no adenopathy. Lungs sounds are diminished and there are diffuse rhonchi heard throughout the lung his bilaterally. Otherwise the breath sounds are equal for now. No significant wheezes. Cardiac exam revealed the PMI to be normally situated and sized. The rhythm was regular and no extrasystoles were noted during several minutes of auscultation. The first and second heart sounds were normal and physiologic splitting of the second heart sound was noted. There were no murmurs, rubs, clicks, or gallops. Abdominal exam revealed normal bowel sounds. The abdomen was soft, non-tender, and without masses, organomegaly, or appreciable enlargement of the abdominal aorta. Examination of the extremities revealed easily palpable radial, femoral and pedal pulses. There was no cyanosis, clubbing or edema. Examination of the skin revealed no evidence of significant rashes, suspicious appearing nevi or other concerning lesions. The patient has petechia in the lower extremities bilaterally related to underlying thrombocytopenia. Few areas of bruising, not extensive. The patient has increased edema in lower extremities bilaterally. Neurologically, the patient is sedated currently on propofol. No focal neurological deficits. The patient is easily arousable and she is awake and she can communicate even while she is on a low dose of propofol. - Labs CBC & Chem 7: 07/18/21 04:05 07/18/21 04:05 Labs: Abnormal Lab Results - Last 24 Hours (Table) 07/17/21 07/17/21 07/17/21 Range/Units 12:46 13:26 18:57 WBC (3.8-10.6) k/uL RBC (3.80-5.40) m/uL Hgb (11.4-16.0) gm/dL Hct (34.0-46.0) % Plt Count (150-450) k/uL ABG pH 7.53 H (7.35-7.45) ABG pCO2 46 H 66 H (35-45) mmHg ABG pO2 67 L 147 H (83-108) mmHg ABG HCO3 38 H 38 H (21-25) mmol/L ABG Total CO2 40 H 40 H (19-24) mmol/L ABG O2 Saturation 99.0 H (94-97) % Sodium (137-145) mmol/L Potassium 2.9 L (3.5-5.1) mmol/L Chloride (98-107) mmol/L Carbon Dioxide (22-30) mmol/L BUN (7-17) mg/dL Glucose (74-99) mg/dL POC Glucose (mg/dL) (75-99) mg/dL Calcium (8.4-10.2) mg/dL Total Protein (6.3-8.2) g/dL Albumin (3.5-5.0) g/dL 07/17/21 07/18/21 07/18/21 Range/Units 19:52 00:56 04:05 WBC 1.0 L* (3.8-10.6) k/uL RBC 2.78 L (3.80-5.40) m/uL Hgb 8.5 L (11.4-16.0) gm/dL Hct 25.4 L (34.0-46.0) % Plt Count 109 L D (150-450) k/uL ABG pH (7.35-7.45) ABG pCO2 (35-45) mmHg ABG pO2 (83-108) mmHg ABG HCO3 (21-25) mmol/L ABG Total CO2 (19-24) mmol/L ABG O2 Saturation (94-97) % Sodium (137-145) mmol/L Potassium (3.5-5.1) mmol/L Chloride (98-107) mmol/L Carbon Dioxide (22-30) mmol/L BUN (7-17) mg/dL Glucose (74-99) mg/dL POC Glucose (mg/dL) 128 H 123 H (75-99) mg/dL Calcium (8.4-10.2) mg/dL Total Protein (6.3-8.2) g/dL Albumin (3.5-5.0) g/dL 07/18/21 07/18/21 07/18/21 Range/Units 04:05 04:58 11:59 WBC (3.8-10.6) k/uL RBC (3.80-5.40) m/uL Hgb (11.4-16.0) gm/dL Hct (34.0-46.0) % Plt Count (150-450) k/uL ABG pH 7.46 H (7.35-7.45) ABG pCO2 54 H (35-45) mmHg ABG pO2 184 H (83-108) mmHg ABG HCO3 38 H (21-25) mmol/L ABG Total CO2 40 H (19-24) mmol/L ABG O2 Saturation 99.5 H (94-97) % Sodium 146 H (137-145) mmol/L Potassium (3.5-5.1) mmol/L Chloride 109 H (98-107) mmol/L Carbon Dioxide 35 H (22-30) mmol/L BUN 19 H (7-17) mg/dL Glucose 143 H (74-99) mg/dL POC Glucose (mg/dL) 131 H (75-99) mg/dL Calcium 7.7 L (8.4-10.2) mg/dL Total Protein 4.6 L (6.3-8.2) g/dL Albumin 2.0 L (3.5-5.0) g/dL Assessment and Plan Plan: 1acute bilateral pneumonia with rapid progression of bilateral pulmonary infiltrates and the patient currently has extensive bilateral airspace disease and coarse interstitial pulmonary infiltrates, consider opportunistic infections especially with her underlying immunosuppression. The bronchioloalveolar lavage has been negative thus far. PCP stain of been negative. Legionella urine antigen was negative. Lavage with viral screen of the bronchioloalveolar lavage has been negative. COVID 19 testing was negative. The patient's regular bacterial cultures and the fungal cultures are negative. She remains on broad- spectrum antibiotics. Remains on the same antibiotic coverage includes cefepime, vancomycin, Levaquin, acyclovir and voriconazole. Based on improvement in her oxygenation and adequate weaning parameters, the patient was extubated yesterday. Within a few hours she had to be reintubated. For now, the patient is reintubated and she is back on assist control mode of ventilation. Blood gases are adequate. Chest x-ray showing development of extensive but the pulmonary infiltrates. As mentioned, all of the cultures of been negative. 2 acute hypoxic respiratory failure secondary to above and the patient has developed worsening pneumonia and hypoxemic respiratory failure, improving, failed extubation 3 shortness of breath secondary to but not limited to above mentioned pneumonia. 4 acute myeloid leukemia post induction chemotherapy, remains leukopenic, the white cell count is gradually improving, white cell count is up to 1 5 pancytopenia, the white cell count is up to 1.0. Platelet counts are also improving. There may be some early signs of recovery of the bone marrow post induction chemotherapy in a patient with AML. 6 Afebrile to having episodic fever on multiple occasions last week. 7 electrolytes disturbance, being managed and replaced 8 diarrhea, stool for C. diff has been negative, no diarrhea 9 paroxysmal atrial fibrillation, current rhythm is sinus and the patient will be taken off the Cardizem drip. The current rhythm is sinus 10 hypotension post intubation. The patient is currently on low-dose norepinephrine infusion for blood pressure control. Plan Keep the patient sedated with propofol, currently propofol is running at 30 mcg/kg per minute Continue ventilator support, drop the PEEP down to 8 and drop the FiO2 down to 50%. Chest x-ray was noted Blood gas was noted No need for further diuretics Wean off norepinephrine discontinue Continue enteral feeding for nutritional support Continue broad-spectrum antibiotic coverage pending further cultures Monitor hematologic profile and the patient's white cell count is improving Echocardiogram to be completed and the patient is a preserved LV function with an ejection fraction of 50-55%. Feeding is the form of vital HP Condition remains critical Critically care evaluation was done more than 30 minutes. Time with Patient: Greater than 30
[2021-07-18] MEDS: D5-0.45% NACL WITH KCL 30MEQ/L 1,000 ML IV SCH (14:59)
[2021-07-18] MEDS: NOREPINEPHRINE 4 MG in SODIUM CHLORIDE 0.9% 250 ML IV SCH (14:59)
--- NOTE | 2021-07-18 15:27 | P.PN ---
Subjective Progress Note Date: 07/18/21 Principal diagnosis: AML, subsequent neutropenic fever post induction chemo In follow-up today patient is [id number] off briefly yesterday. She is alert, follows commands, requests to be suctioned, gives thumbs up when asked how she is doing. Her WBC doubled again from yesterday, 1 today. Objective - Vital Signs Vital signs: Vital Signs Temp 98.9 F 07/18/21 12:00 Pulse 84 07/18/21 13:00 Resp 20 07/18/21 13:00 BP 102/55 07/16/21 04:02 Pulse Ox 95 07/18/21 13:00 Intake & Output 07/17/21 07/18/21 07/18/21 18:59 06:59 18:59 Intake Total 2442.563 2594.912 1011.582 Output Total 2700 1350 1720 Balance -1319.357 313.912 -708.418 Weight 92.8 kg 92.8 kg Intake: IV 826 1023 281 0.9 carriers 200 220 120 Acyclovir Sodium 500 mg 100 In Sodium Chloride 0.9% 100 ml @ 100 mls/hr IVPB Q8H [facility] Rx#:[id number] D5-0.45% NaCl with KCl 240 220 140 30Meq/l 1,000 ml @ 20 mls /hr IV .Q24H [facility] Rx#: [id number] Levofloxacin 750Mg-D5w 100 Pmx 750 mg In Dextrose/ Water 1 150ml.bag @ 100 mls/hr IVPB Q24H [facility] Rx#: [id number] Potassium Chloride 20 meq 200 In Water For Injection 1 100ml.bag @ 50 mls/hr IVPB Q2H [facility] Rx#: [id number] Voriconazole 360 mg In 250 250 Sodium Chloride 0.9% 250 ml @ 125 mls/hr IVPB Q12HR [facility] Rx#:[id number] arterial line 36 33 21 Intake, IV Titration 274.643 130.912 343.582 Amount Magnesium Sulfate-D5w Pmx 200 1 gm In Dextrose/Water 1 100ml.bag @ 100 mls/hr IVPB Q1H [facility] Rx#: [id number] Norepinephrine 4 mg In 243.582 Sodium Chloride 0.9% 250 ml @ 0.05 MCG/KG/MIN 18. 402 mls/hr IV .[id number] [facility] Rx#:[id number] propofoL 1,000 mg In 74.643 130.912 100 Empty Bag 1 bag @ Titrate IV .Q0M [facility] Rx#: [id number] Tube Feeding 250 450 327 Other 30 60 60 Output: Urine 2700 1350 1720 Other: Voiding Method Indwelling Catheter Indwelling Catheter Indwelling Catheter ABP, PAP, CO, CI - Last Documented Arterial Blood Pressure 123/49 - Constitutional General appearance: Present: average body habitus, cooperative, no acute distress - EENT Eyes: Present: anicteric sclerae ENT: Present: hearing grossly normal - Respiratory Respiratory: bilateral: rales (few scattered) - Cardiovascular Rhythm: regular Heart sounds: normal: S1, S2 Abnormal Heart Sounds: Absent: systolic murmur, diastolic murmur, rub, S3 Gal lop, S4 Gallop, click, other - Peripheral edema leg Peripheral Edema: bilateral: None - Gastrointestinal General gastrointestinal: Present: normal bowel sounds, soft - Integumentary Integumentary: Present: pale - Musculoskeletal Musculoskeletal: Present: generalized weakness, strength equal bilaterally - Psychiatric Psychiatric Comment(s): She responds calmly to questions with nods of the head and thumbs up - Labs CBC & Chem 7: 07/18/21 04:05 07/18/21 04:05 Labs: Abnormal Lab Results - Last 24 Hours (Table) 07/17/21 07/17/21 07/18/21 Range/Units 18:57 19:52 00:56 WBC (3.8-10.6) k/uL RBC (3.80-5.40) m/uL Hgb (11.4-16.0) gm/dL Hct (34.0-46.0) % Plt Count (150-450) k/uL ABG pH (7.35-7.45) ABG pCO2 66 H (35-45) mmHg ABG pO2 147 H (83-108) mmHg ABG HCO3 38 H (21-25) mmol/L ABG Total CO2 40 H (19-24) mmol/L ABG O2 Saturation 99.0 H (94-97) % Sodium (137-145) mmol/L Chloride (98-107) mmol/L Carbon Dioxide (22-30) mmol/L BUN (7-17) mg/dL Glucose (74-99) mg/dL POC Glucose (mg/dL) 128 H 123 H (75-99) mg/dL Calcium (8.4-10.2) mg/dL Total Protein (6.3-8.2) g/dL Albumin (3.5-5.0) g/dL 07/18/21 07/18/21 07/18/21 Range/Units 04:05 04:05 04:58 WBC 1.0 L* (3.8-10.6) k/uL RBC 2.78 L (3.80-5.40) m/uL Hgb 8.5 L (11.4-16.0) gm/dL Hct 25.4 L (34.0-46.0) % Plt Count 109 L D (150-450) k/uL ABG pH 7.46 H (7.35-7.45) ABG pCO2 54 H (35-45) mmHg ABG pO2 184 H (83-108) mmHg ABG HCO3 38 H (21-25) mmol/L ABG Total CO2 40 H (19-24) mmol/L ABG O2 Saturation 99.5 H (94-97) % Sodium 146 H (137-145) mmol/L Chloride 109 H (98-107) mmol/L Carbon Dioxide 35 H (22-30) mmol/L BUN 19 H (7-17) mg/dL Glucose 143 H (74-99) mg/dL POC Glucose (mg/dL) (75-99) mg/dL Calcium 7.7 L (8.4-10.2) mg/dL Total Protein 4.6 L (6.3-8.2) g/dL Albumin 2.0 L (3.5-5.0) g/dL 07/18/21 Range/Units 11:59 WBC (3.8-10.6) k/uL RBC (3.80-5.40) m/uL Hgb (11.4-16.0) gm/dL Hct (34.0-46.0) % Plt Count (150-450) k/uL ABG pH (7.35-7.45) ABG pCO2 (35-45) mmHg ABG pO2 (83-108) mmHg ABG HCO3 (21-25) mmol/L ABG Total CO2 (19-24) mmol/L ABG O2 Saturation (94-97) % Sodium (137-145) mmol/L Chloride (98-107) mmol/L Carbon Dioxide (22-30) mmol/L BUN (7-17) mg/dL Glucose (74-99) mg/dL POC Glucose (mg/dL) 131 H (75-99) mg/dL Calcium (8.4-10.2) mg/dL Total Protein (6.3-8.2) g/dL Albumin (3.5-5.0) g/dL - Imaging and Cardiology Chest x-ray: report reviewed Assessment and Plan (1) Neutropenic fever Narrative/Plan: No fever overnight. White count did double again. CXR report states looks worse, likely cytokine release syndrome from WBC recovery. Would anticipate improvement as pt WBC normalizes. Cont mechanical ventilation. Pulm/Critical Care team following Current Visit: Yes Status: Acute Priority: High Code(s): D70.9 - NEUTROPENIA, UNSPECIFIED; R50.81 - FEVER PRESENTING WITH CONDITIONS CLASSIFIED ELSEWHERE SNOMED Code(s): 484337788 (2) Pancytopenia due to antineoplastic chemotherapy Narrative/Plan: Hemoglobin and platelets stable, cont to improve. WBC 1. Transfuse for hemoglobin less than 7, platelets less than 10,000 or if symptomatic. Irradiated blood products only. No GCS F until patient has confirmed remission. Current Visit: Yes Status: Acute Priority: High Code(s): D61.810 - ANTINEOPLASTIC CHEMOTHERAPY INDUCED PANCYTOPENIA; T45.1X5A - ADVERSE EFFECT OF ANTINEOPLASTIC AND IMMUNOSUP DRUGS, INIT SNOMED Code(s): 095838899973560 (3) Respiratory failure Narrative/Plan: Critical Care team, ICU management. Was extubated yesterday, re-intubated last night. Anticipate respiratory stability in the next 24-48 hours if r/t cyutokine release from WBC recovery Current Visit: Yes Status: Acute Priority: High Code(s): J96.90 - RESPIRATORY FAILURE, UNSP, UNSP W HYPOXIA OR HYPERCAPNIA SNOMED Code(s): 031398030 (4) AML (acute myeloid leukemia) Narrative/Plan: Patient is status post induction chemotherapy. 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 This is been held due to patient's acute situation. We will consider resuming once patient is extubated. Current Visit: Yes Status: Acute Priority: High Code(s): C92.00 - ACUTE MYELOBLASTIC LEUKEMIA, NOT HAVING ACHIEVED REMISSION SNOMED Code(s): 06041219
--- NOTE | 2021-07-18 16:19 | PN ---
PROGRESS NOTE DATE OF SERVICE: 07/18/2021 REASON FOR FOLLOWUP: Febrile neutropenia and pneumonia. INTERVAL HISTORY: The patient is afebrile. The patient is hemodynamically stable. FiO2 is currently 60%. No significant purulent secretions through the ET, diarrhea on any other changes reported by the nursing staff. PHYSICAL EXAMINATION: Blood pressure is 100/38 with a pulse of 92, temperature 98.9. She is 98% on 60% FiO2. GENERAL DESCRIPTION: General description is a middle-aged female lying in bed in no distress. RESPIRATORY SYSTEM: Unlabored breathing. Decreased intensity of breath sounds. No wheeze. HEART: S1, S2. Regular rate and rhythm. ABDOMEN: Soft. No tenderness. LABS: Hemoglobin 8.5, white 1.0, BUN of 19, creatinine 0.98. DIAGNOSTIC IMPRESSION AND PLAN: Patient with febrile neutropenia and concern for pneumonia, possible ARDS pattern. Culture has been negative so far. Patient is covered with broad-spectrum antibiotics; to continue while monitoring clinical course closely. Continue with supportive care. MMODL / IJN: [id number] /
[2021-07-18] MEDS: LEVOFLOXACIN 750MG-D5W PMX 750 MG in DEXTROSE/WATER 1 150ML.BAG IVPB SCH (17:28)
[2021-07-18 18:47] LABS: Glucose,Whole Blood 132 mg/dL (75-99)
[2021-07-19] MEDS: INSULIN ASPART (NovoLOG) 100 UNIT/ML VIAL SQ SCH ×4 (03:28→17:58)
[2021-07-19] MEDS: NOREPINEPHRINE 4 MG in SODIUM CHLORIDE 0.9% 250 ML IV SCH ×2 (03:28→17:57)
[2021-07-19 04:40] LABS: HCT 23.7 % (34.0-46.0); MCH 30.7 pg (25.0-35.0); MCHC 33.6 g/dL (31.0-37.0); MCV 91.6 fL (80.0-100.0); Mean Platelet Volume 9.3; Platelet Count 136 k/uL (150-450); RBC 2.59 m/uL (3.80-5.40); RDW 15.2 % (11.5-15.5)
[2021-07-19 04:42] LABS: WBC 1.3 k/uL (3.8-10.6)
[2021-07-19 04:49] LABS: Albumin 2.1 g/dL (3.5-5.0); Potassium 2.9 mmol/L (3.5-5.1); Total Bilirubin 0.5 mg/dL (0.2-1.3); Total Protein 4.7 g/dL (6.3-8.2)
[2021-07-19 05:05] LABS: Band Neutrophils % 22 %; Lymphocytes # (M) 0.13 k/uL (1.0-4.8); Neutrophils % (M) 68 %; Nucleated Red Blood Cells 1 /100 WBC (0-0); Total Cells Counted 100
[2021-07-19 05:14] LABS: ABG Oxygen Saturation 98.1 % (94-97); ABG PCO2 47 mmHg (35-45); ABG PH 7.55 (7.35-7.45); ABG PO2 89 mmHg (83-108); ABG TCO2 43 mmol/L (19-24)
[2021-07-19 05:22] LABS: ABG HCO3 41 mmol/L (21-25); Allen Test Performed? no
[2021-07-19] MEDS: POTASSIUM CHLORIDE 20 MEQ in WATER FOR INJECTION 1 100ML.BAG IVPB SCH ×5 (05:45→15:30)
[2021-07-19] MEDS: ACYCLOVIR SODIUM 500 MG in SODIUM CHLORIDE 0.9% 100 ML IVPB SCH ×2 (05:45→14:07)
--- NOTE | 2021-07-19 07:20 | XR ---
EXAMINATION TYPE: XR chest 1V portable DATE OF EXAM: 07/19/2021 COMPARISON: 07/18/2021 HISTORY: SOB, Follow Up FINDINGS: Indwelling tubes and catheters are unchanged. Persistent diffuse pleural parenchymal changes correlate for ARDS, pulmonary edema or diffuse pneumon ia. Stable appearance of the cardio-mediastinal structures at this time. Pleural effusion unchanged. IMPRESSION: 1. Stable portable chest. Clinical correlation and follow up until resolution is recommended.
[2021-07-19] MEDS: PANTOPRAZOLE 40 MG/10 ML VIAL IV SCH (08:00)
[2021-07-19] MEDS: ZINC SULFATE 220 MG CAP PO SCH (08:01)
[2021-07-19] MEDS: CHLORHEXIDINE GLUCONATE 15 ML CUP MUCOUS MEM SCH ×2 (08:01→22:16)
[2021-07-19] MEDS: ALBUTEROL NEBULIZED 2.5 MG/3 ML INHALATION SCH ×4 (08:01→19:39)
[2021-07-19] MEDS: PARoxetine 10 MG TAB PO SCH (08:02)
--- NOTE | 2021-07-19 08:18 | P.PN ---
Subjective Progress Note Date: 07/19/21 07/19/2021, the patient is gently sedated with propofol running at 30 mcg/kg per minute. The patient is intubated on a mechanical ventilator. She is an assist- control mode at the rate of 60 with a tidal volume of 400 and FiO2 of 50% with a PEEP of 8. Morning blood gases showed a pH of 7.55 with a pCO2 of 47 and pO2 of 88. Chest x-ray showing diffuse bilateral pulmonary infiltrates, unchanged compared to yesterday. ET tube was sitting right at the olivia and needs to be pulled backwards. I would suggest putting it back to around 1 cm. She is easily arousable. She is following commands. No significant orotracheal secretions. Cultures from her earlier bronchioloalveolar lavage has been ne gative and the patient is afebrile. White cell count is up to 1.3. Platelet count is above 1000. She has developed some metabolic alkalosis. Her serum bicarbonate currently is at 37. Sodium is at 147. Potassium is at 2.9 which is being replaced. She is currently on D5 half-normal saline along with potassium supplements running at the rate of 20 mL an hour. She is receiving enteral feeding for nutritional support. She is currently on vital high protein running at the rate of 27 mL an hour. No other significant issues overnight. Cultures from earlier have been all negative. As mentioned, she has been essentially afebrile. Objective - Vital Signs Vital signs: Vital Signs Temp 98.8 F 07/19/21 04:00 Pulse 90 07/19/21 08:04 Resp 23 07/19/21 07:00 BP 102/55 07/16/21 04:02 Pulse Ox 94 L 07/19/21 07:00 Intake & Output 07/18/21 07/19/21 07/19/21 18:59 06:59 18:59 Intake Total 9694.833 5570.72 60 Output Total 2420 2100 125 Balance -963.557 -941.28 -65 Weight 92.8 kg 89.9 kg Intake: IV 456 496 33 0.9 carriers 180 120 10 Acyclovir Sodium 500 mg 100 In Sodium Chloride 0.9% 100 ml @ 100 mls/hr IVPB Q8H [facility] Rx#:[id number] D5-0.45% NaCl with KCl 240 240 20 30Meq/l 1,000 ml @ 20 mls /hr IV .Q24H [facility] Rx#: [id number] arterial line 36 36 3 Intake, IV Titration 448.443 248.72 Amount Cefepime 2 gm In Sodium 100 Chloride 0.9% 100 ml @ 25 mls/hr IVPB Q12H [facility] Rx# :[id number] Norepinephrine 4 mg In 258.427 Sodium Chloride 0.9% 250 ml @ 0.05 MCG/KG/MIN 18. 402 mls/hr IV .[id number] [facility] Rx#:[id number] propofoL 1,000 mg In 190.016 148.72 Empty Bag 1 bag @ Titrate IV .Q0M [facility] Rx#: [id number] Tube Feeding 462 324 27 Other 90 90 Output: Urine 2420 2100 125 Other: Voiding Method Indwelling Catheter Indwelling Catheter ABP, PAP, CO, CI - Last Documented Arterial Blood Pressure 126/52 - Exam Gen. appearance the patient is sedated, intubated on a mechanical ventilator. Orogastric and orotracheal tube are both in place. Head exam was generally normal. There was no scleral icterus or corneal arcus. Mucous membranes were moist. Neck was supple and without jugular venous distension, thyromegaly, or carotid bruits. Carotids were easily palpable bilaterally. There was no adenopathy. Lungs sounds are diminished and there are diffuse rhonchi heard throughout the lung his bilaterally. Otherwise the breath sounds are equal for now. No significant wheezes. Cardiac exam revealed the PMI to be normally situated and sized. The rhythm was regular and no extrasystoles were noted during several minutes of auscultation. The first and second heart sounds were normal and physiologic splitting of the second heart sound was noted. There were no murmurs, rubs, clicks, or gallops. Abdominal exam revealed normal bowel sounds. The abdomen was soft, non-tender, and without masses, organomegaly, or appreciable enlargement of the abdominal aorta. Examination of the extremities revealed easily palpable radial, femoral and pedal pulses. There was no cyanosis, clubbing or edema. Examination of the skin revealed no evidence of significant rashes, suspicious appearing nevi or other concerning lesions. The patient has petechia in the lower extremities bilaterally related to underlying thrombocytopenia. Few areas of bruising, not extensive. The patient has increased edema in lower extremities bilaterally. Neurologically, the patient is sedated currently on propofol. No focal neurological deficits. The patient is easily arousable and she is awake and she can communicate even while she is on a low dose of propofol. - Labs CBC & Chem 7: 07/19/21 04:05 07/19/21 04:05 Labs: Abnormal Lab Results - Last 24 Hours (Table) 07/18/21 07/18/21 07/19/21 Range/Units 11:59 18:46 04:05 WBC 1.3 L* (3.8-10.6) k/uL RBC 2.59 L (3.80-5.40) m/uL Hgb 8.0 L (11.4-16.0) gm/dL Hct 23.7 L (34.0-46.0) % Plt Count 136 L (150-450) k/uL Neutrophils # (Manual) 1.10 L (1.3-7.7) k/uL Lymphocytes # (Manual) 0.13 L (1.0-4.8) k/uL Nucleated RBCs 1 H (0-0) /100 WBC ABG pH (7.35-7.45) ABG pCO2 (35-45) mmHg ABG HCO3 (21-25) mmol/L ABG Total CO2 (19-24) mmol/L ABG O2 Saturation (94-97) % Sodium (137-145) mmol/L Potassium (3.5-5.1) mmol/L Carbon Dioxide (22-30) mmol/L BUN (7-17) mg/dL Glucose (74-99) mg/dL POC Glucose (mg/dL) 131 H 132 H (75-99) mg/dL Calcium (8.4-10.2) mg/dL Total Protein (6.3-8.2) g/dL Albumin (3.5-5.0) g/dL 07/19/21 07/19/21 Range/Units 04:05 05:08 WBC (3.8-10.6) k/uL RBC (3.80-5.40) m/uL Hgb (11.4-16.0) gm/dL Hct (34.0-46.0) % Plt Count (150-450) k/uL Neutrophils # (Manual) (1.3-7.7) k/uL Lymphocytes # (Manual) (1.0-4.8) k/uL Nucleated RBCs (0-0) /100 WBC ABG pH 7.55 H (7.35-7.45) ABG pCO2 47 H (35-45) mmHg ABG HCO3 41 H* (21-25) mmol/L ABG Total CO2 43 H (19-24) mmol/L ABG O2 Saturation 98.1 H (94-97) % Sodium 147 H (137-145) mmol/L Potassium 2.9 L (3.5-5.1) mmol/L Carbon Dioxide 37 H (22-30) mmol/L BUN 20 H (7-17) mg/dL Glucose 118 H (74-99) mg/dL POC Glucose (mg/dL) (75-99) mg/dL Calcium 8.0 L (8.4-10.2) mg/dL Total Protein 4.7 L (6.3-8.2) g/dL Albumin 2.1 L (3.5-5.0) g/dL Assessment and Plan Plan: 1acute bilateral pneumonia with rapid progression of bilateral pulmonary infiltrates and the patient currently has extensive bilateral airspace disease and coarse interstitial pulmonary infiltrates, consider opportunistic infections especially with her underlying immunosuppression. The bronchioloalveolar lavage has been negative thus far. PCP stain of been negative. Legionella urine antigen was negative. Lavage with viral screen of the bronchioloalveolar lavage has been negative. COVID 19 testing was negative. The patient's regular bacterial cultures and the fungal cultures are negative. She remains on broad- spectrum antibiotics. Remains on the same antibiotic coverage includes cefepime, vancomycin, Levaquin, acyclovir and voriconazole. Based on improvement in her oxygenation and adequate weaning parameters, the patient was extubated 07/17/2021. Within a few hours, she failed and the patient had to be reintubated. She was Intubated and on today's evaluation, her chest x-ray findings are essentially stable diffuse bilateral pulmonary infiltrates. Nevertheless, her oxidation is improved. Currently she is on a PEEP of 8 with an FiO2 of 50%. She is quite comfortable and she is hemodynamically stable. She is afebrile. She still covered with broad-spectrum antibiotics. Hemato logic profile is essentially improving. 2 acute hypoxic respiratory failure secondary to above and the patient has developed worsening pneumonia and hypoxemic respiratory failure, improving, failed extubation 3 shortness of breath secondary to but not limited to above mentioned pneumonia. 4 acute myeloid leukemia post induction chemotherapy, remains leukopenic, the white cell count is gradually improving, white cell count is up to 1.3 5 pancytopenia, with early signs of recovery of the bone marrow post induction chemotherapy in a patient with AML. 6 Afebrile to having episodic fever on multiple occasions last week. 7 electrolytes disturbance, being managed and replaced 8 diarrhea, stool for C. diff has been negative, no diarrhea 9 paroxysmal atrial fibrillation, current rhythm is sinus and the patient will be taken off the Cardizem drip. The current rhythm is sinus 10 metabolic alkalosis. Plan Keep the patient sedated with propofol, currently propofol is running at 30 mcg/kg per minute Continue ventilator support, drop the PEEP down to 6 and drop the FiO2 down to 50%. Obtain another bronchioloalveolar lavage Consider the addition of steroids and this was discussed with the hematology oncologist Chest x-ray was noted Blood gas was noted No need for further diuretics norepinephrine discontinued Fluids to D5 water at the rate of 75 mL an hour. Continue enteral feeding for nutritional support Continue broad-spectrum antibiotic coverage pending further cultures Monitor hematologic profile and the patient's white cell count is improving Echocardiogram to be completed and the patient is a preserved LV function with an ejection fraction of 50-55%. Feeding is the form of vital HP Condition remains critical We'll check weaning parameters after the bronchoscopy and lavage and assess his readiness to wean. She failed extubation on 07/17/2021. Nevertheless, she looking much more stable again and she may be considered for other extubation over the next Critically care evaluation was done more than 30 minutes. Time with Patient: Greater than 30
--- NOTE | 2021-07-19 09:41 | P.PCN ---
Date of Procedure: 07/19/21 Operative Findings: Preoperative Diagnosis: Bilateral pneumonia, rule out opportunistic infections, history of AML with pancytopenia Postoperative Diagnosis: Bilateral pneumonia, rule out opportunistic infections, history of AML with pancytopenia Procedure(s) Performed: Flex bronchoscopy, bronchial alveolar lavage of the superior segment of the lingula. Anesthesia: MAC Surgeon: Felix Sanabria Estimated Blood Loss (ml): 0 Pathology: other Condition: critical Disposition: ICU Operative Findings: This is a procedure that was done in the intensive care unit. The patient has AML with pancytopenia post-induction chemotherapy. The patient has developed hypoxic respiratory failure and the patient Had to be intubated and placed on a mechanical ventilator. She continues to have diffuse bilateral pulmonary infiltrates. Earlier bronchoscopy and the bronchioloalveolar lavage was done and the cultures came back all negative. Due to persistence of the diffuse bilateral pulmonary infiltrates, second bronchoscopy for airway inspection and a lavage was done. Note that at this point in time, the patient is intubated on a mechanical ventilator. Procedure was done in the intensive care unit. The patient was remained on mechanical ventilator with an FiO2 of 100%. The patient was sedated with propofol. The patient was given propofol for sedation. The flexible bronchoscope was inserted fluid orotracheal tube. The procedure was not was the patient was oxygenated and mechanically ventilated. The flexible bronchoscope was introduced and the distal trachea was visualized and was within normal limits. Examination of the trachealbronchial tree was done. The visualized airways included enter trachea, olivia, bilateral mainstem bronchi, right upper lobe bronchus, bronchus intermedius, right middle lobe bronchus and right lower lobe bronchus, left upper lobe bronchus, left lower lobe bronchitis in the lingular segment. All of airways were patent and within normal limits. Bronchial mucosa was also within normal limits. The bronchoscope was wedged into the superior segment of the lingula on the left. The bronchioloalveolar lavage was done with a total of 60 mL of fluid was infused and around 25 mL was aspirated back and asked that was nonbloody. Therapeutic airway suctioning was done. The residual airway secretions were suctioned out and the patient tolerated the procedure well without any significant desaturation. Bronchoscope was removed and the patient was kept on ventilator . The samples will be sent for microbial cultures and analysis.
[2021-07-19] MEDS: SODIUM CHLORIDE 0.9% IVPB SCH ×2 (09:43→22:15)
[2021-07-19] MEDS: VORICONAZOLE IVPB SCH ×2 (09:43→22:15)
[2021-07-19] MEDS: MAGNESIUM SULFATE-D5W PMX 1 GM in DEXTROSE/WATER 1 100ML.BAG IVPB SCH ×2 (09:44→11:14)
[2021-07-19] MEDS: FUROSEMIDE 10 MG/ML 2 ML VIAL IV SCH (09:49)
[2021-07-19] MEDS: CHOLESTYRAMINE (WITH SUGAR) 4 GM PACKET PO SCH ×2 (10:13→17:58)
[2021-07-19] MEDS: SALT AND SODA MOUTHWASH 1,000 ML PO SCH ×4 (11:50→22:16)
[2021-07-19] MEDS: D5-0.45% NACL WITH KCL 30MEQ/L 1,000 ML IV SCH ×2 (11:51→20:07)
[2021-07-19] MEDS: CEFEPIME 2 GM in SODIUM CHLORIDE 0.9% 100 ML IVPB SCH (12:31)
[2021-07-19 12:42] LABS: Glucose,Whole Blood 117 mg/dL (75-99)
[2021-07-19 13:14] LABS: ABG Base Excess 17.1 mmol/L; ABG HCO3 39 mmol/L (21-25); ABG Oxygen Saturation 97.2 % (94-97); ABG PCO2 45 mmHg (35-45); ABG PH 7.55 (7.35-7.45); ABG PO2 80 mmHg (83-108); ABG TCO2 41 mmol/L (19-24); Allen Test Performed? Yes
--- NOTE | 2021-07-19 13:59 | P.PN ---
Subjective Progress Note Date: 07/19/21 Pt had bronchoscopy done today with normal appearing parenchyma. BAL with Cx are pending. Fungitell was negative. Ongoing tx with vanco, cefepime, levoquin, acyclovir, voriconazole. WBC is improving to 1.3. PLTs are 136. Hgb stable at 8. Multiple electrolyte abnormalities: hypernatremia, hypokalemia, elevated bicarb. On propofol at 30mcg, off of levophed, on D5/0.45NS at 20. Vent being adjusted by pulmonary. Objective - Vital Signs Vital signs: Vital Signs Temp 98.4 F 07/19/21 12:00 Pulse 97 07/19/21 13:00 Resp 14 07/19/21 13:00 BP 102/55 07/16/21 04:02 Pulse Ox 94 L 07/19/21 13:00 Intake & Output 07/18/21 07/19/21 07/19/21 18:59 06:59 18:59 Intake Total 6643.046 6583.72 1297.377 Output Total 2420 2100 2325 Balance -963.557 -941.28 -1027.623 Weight 92.8 kg 89.9 kg Intake: IV 456 496 756 0.9 carriers 180 120 70 Acyclovir Sodium 500 mg 100 In Sodium Chloride 0.9% 100 ml @ 100 mls/hr IVPB Q8H [facility] Rx#:[id number] D5-0.45% NaCl with KCl 240 240 340 30Meq/l 1,000 ml @ 75 mls /hr IV .[id number] [facility] Rx#: [id number] Potassium Chloride 20 meq 100 In Water For Injection 1 100ml.bag @ 50 mls/hr IVPB Q2H [facility] Rx#: [id number] Potassium Chloride 20 meq 100 In Water For Injection 1 100ml.bag @ 50 mls/hr IVPB Q2H [facility] Rx#: [id number] Voriconazole 360 mg In 125 Sodium Chloride 0.9% 250 ml @ 125 mls/hr IVPB Q12HR [facility] Rx#:[id number] arterial line 36 36 21 Intake, IV Titration 448.443 248.72 457.377 Amount Cefepime 2 gm In Sodium 100 25 Chloride 0.9% 100 ml @ 25 mls/hr IVPB Q12H [facility] Rx# :[id number] Magnesium Sulfate-D5w Pmx 200 1 gm In Dextrose/Water 1 100ml.bag @ 100 mls/hr IVPB Q1H [facility] Rx#: [id number] Norepinephrine 4 mg In 258.427 Sodium Chloride 0.9% 250 ml @ 0.05 MCG/KG/MIN 18. 402 mls/hr IV .[id number] [facility] Rx#:[id number] Voriconazole 360 mg In 125 Sodium Chloride 0.9% 250 ml @ 125 mls/hr IVPB Q12HR [facility] Rx#:[id number] propofoL 1,000 mg In 190.016 148.72 107.377 Empty Bag 1 bag @ Titrate IV .Q0M [facility] Rx#: [id number] Tube Feeding 462 324 54 Other 90 90 30 Output: Urine 2420 2100 2325 Other: Voiding Method Indwelling Catheter Indwelling Catheter Indwelling Catheter ABP, PAP, CO, CI - Last Documented Arterial Blood Pressure 144/61 - Exam Gen: intubated, sedated HEENT: normocephalic, atraumatic, good hearing acuity, moist mucous membranes Resp: vent GI: soft, NTTP, ND : no SPT, no CVAT, putnam catheter is present MSK: no pitting edema, no clubbing - Labs CBC & Chem 7: 07/19/21 04:05 07/19/21 12:42 Labs: Abnormal Lab Results - Last 24 Hours (Table) 07/18/21 07/19/21 07/19/21 Range/Units 18:46 04:05 04:05 WBC 1.3 L* (3.8-10.6) k/uL RBC 2.59 L (3.80-5.40) m/uL Hgb 8.0 L (11.4-16.0) gm/dL Hct 23.7 L (34.0-46.0) % Plt Count 136 L (150-450) k/uL Neutrophils # (Manual) 1.10 L (1.3-7.7) k/uL Lymphocytes # (Manual) 0.13 L (1.0-4.8) k/uL Nucleated RBCs 1 H (0-0) /100 WBC ABG pH (7.35-7.45) ABG pCO2 (35-45) mmHg ABG pO2 (83-108) mmHg ABG HCO3 (21-25) mmol/L ABG Total CO2 (19-24) mmol/L ABG O2 Saturation (94-97) % Sodium 147 H (137-145) mmol/L Potassium 2.9 L (3.5-5.1) mmol/L Carbon Dioxide 37 H (22-30) mmol/L BUN 20 H (7-17) mg/dL Glucose 118 H (74-99) mg/dL POC Glucose (mg/dL) 132 H (75-99) mg/dL Calcium 8.0 L (8.4-10.2) mg/dL Total Protein 4.7 L (6.3-8.2) g/dL Albumin 2.1 L (3.5-5.0) g/dL 07/19/21 07/19/21 07/19/21 Range/Units 05:08 12:40 12:42 WBC (3.8-10.6) k/uL RBC (3.80-5.40) m/uL Hgb (11.4-16.0) gm/dL Hct (34.0-46.0) % Plt Count (150-450) k/uL Neutrophils # (Manual) (1.3-7.7) k/uL Lymphocytes # (Manual) (1.0-4.8) k/uL Nucleated RBCs (0-0) /100 WBC ABG pH 7.55 H (7.35-7.45) ABG pCO2 47 H (35-45) mmHg ABG pO2 (83-108) mmHg ABG HCO3 41 H* (21-25) mmol/L ABG Total CO2 43 H (19-24) mmol/L ABG O2 Saturation 98.1 H (94-97) % Sodium (137-145) mmol/L Potassium 3.2 L (3.5-5.1) mmol/L Carbon Dioxide (22-30) mmol/L BUN (7-17) mg/dL Glucose (74-99) mg/dL POC Glucose (mg/dL) 117 H (75-99) mg/dL Calcium (8.4-10.2) mg/dL Total Protein (6.3-8.2) g/dL Albumin (3.5-5.0) g/dL 07/19/21 Range/Units 13:12 WBC (3.8-10.6) k/uL RBC (3.80-5.40) m/uL Hgb (11.4-16.0) gm/dL Hct (34.0-46.0) % Plt Count (150-450) k/uL Neutrophils # (Manual) (1.3-7.7) k/uL Lymphocytes # (Manual) (1.0-4.8) k/uL Nucleated RBCs (0-0) /100 WBC ABG pH 7.55 H (7.35-7.45) ABG pCO2 (35-45) mmHg ABG pO2 80 L (83-108) mmHg ABG HCO3 39 H (21-25) mmol/L ABG Total CO2 41 H (19-24) mmol/L ABG O2 Saturation 97.2 H (94-97) % Sodium (137-145) mmol/L Potassium (3.5-5.1) mmol/L Carbon Dioxide (22-30) mmol/L BUN (7-17) mg/dL Glucose (74-99) mg/dL POC Glucose (mg/dL) (75-99) mg/dL Calcium (8.4-10.2) mg/dL Total Protein (6.3-8.2) g/dL Albumin (3.5-5.0) g/dL Assessment and Plan Assessment: Neutropenic fevers Acute myelogenous leukemia Pancytopenia, chemo induced Pneumonia Acute hypoxic respiratory failure, vent dependent ARDS Diarrhea Sepsis without septic shock - WBC and PLT increasing as of 07/16 - Covid negative, legionella urine Ag negative, Aspergillus IgE negative - 1, 3 - beta- D- glucan is negative - Viral studies negative. - all cultures negative to date. - PCP stain is negative - bronch 07/11 with cultures negative to date. - bronch 07/19 with cultures pending - ID, Pulm, Heme/onc recs appreciated - Continue with vanco, cefepime, voriconzaole, levaquin, and acyclovir - cholestyramine - vent management per pulm - galactomannan pending (ordered on 07/17; turn around time is usually 3 days) A fib with RVR, currently in normal sinus rhythm -Cardizem drip was discontinued on 07/15. - No anticoagulation due to thrombocytopenia and high risk of bleeding - tele - echo essential within normal limits - consider cardio consult if echo is abnormal Episode of tremors - EEG negative - CT head negative - neurology recs Moderate to severe MR Hypokalemia Hypomagnesemia Hypophosphatemia Hypocalcemia - replace as indicated Poor over all prognosis, however, improving this admission Awaiting direct AB stain results from [facility] [id number], not cu rrently available.
[2021-07-19 14:18] LABS: Appearance,BF Cloudy; Color,BF Red; Nucleated Cells, Body Fluid 20 /uL
[2021-07-19 14:19] LABS: RBC, Body Fluid 300 /uL
[2021-07-19 14:25] LABS: Mononuclear WBC,Body Fluid 77 %; Polynuclear WBC,Body Fluid 23 %; Total Cells Counted,Body Fluid 100
--- NOTE | 2021-07-19 16:34 | P.PN ---
Subjective Progress Note Date: 07/19/21 Principal diagnosis: AML, subsequent neutropenic fever post induction chemo In follow-up today patient is intubated, is alert at times, follows commands, can communicate with hand gestures. WBC 1.3, Hgb Stable, platelets almost normal. Objective - Vital Signs Vital signs: Vital Signs Temp 98.4 F 07/19/21 12:00 Pulse 105 H 07/19/21 16:21 Resp 20 07/19/21 15:00 BP 102/55 07/16/21 04:02 Pulse Ox 98 07/19/21 15:00 Intake & Output 07/18/21 07/19/21 07/19/21 18:59 06:59 18:59 Intake Total 1432.557 6230.72 1523.377 Output Total 2420 2100 3100 Balance -963.557 -941.28 -1576.623 Weight 92.8 kg 89.9 kg Intake: IV 456 496 932 0.9 carriers 180 120 90 Acyclovir Sodium 500 mg 100 In Sodium Chloride 0.9% 100 ml @ 100 mls/hr IVPB Q8H AN[facility] Rx#:[id number] D5-0.45% NaCl with KCl 240 240 490 30Meq/l 1,000 ml @ 75 mls /hr IV .[id number] ANJEL Rx#: [id number] Potassium Chloride 20 meq 100 In Water For Injection 1 100ml.bag @ 50 mls/hr IVPB Q2H ANJEL Rx#: [id number] Potassium Chloride 20 meq 100 In Water For Injection 1 100ml.bag @ 50 mls/hr IVPB Q2H ANJEL Rx#: [id number] Voriconazole 360 mg In 125 Sodium Chloride 0.9% 250 ml @ 125 mls/hr IVPB Q12HR ANJ[facility] Rx#:[id number] arterial line 36 36 27 Intake, IV Titration 448.443 248.72 507.377 Amount Cefepime 2 gm In Sodium 100 75 Chloride 0.9% 100 ml @ 25 mls/hr IVPB Q12H [facility] Rx# :[id number] Magnesium Sulfate-D5w Pmx 200 1 gm In Dextrose/Water 1 100ml.bag @ 100 mls/hr IVPB Q1H ANJEL Rx#: [id number] Norepinephrine 4 mg In 258.427 Sodium Chloride 0.9% 250 ml @ 0.05 MCG/KG/MIN 18. 402 mls/hr IV .[id number] ANJEL Rx#:[id number] Voriconazole 360 mg In 125 Sodium Chloride 0.9% 250 ml @ 125 mls/hr IVPB Q12HR ANJ[facility] Rx#:[id number] propofoL 1,000 mg In 190.016 148.72 107.377 Empty Bag 1 bag @ Titrate IV .Q0M ANJEL Rx#: [id number] Tube Feeding 462 324 54 Other 90 90 30 Output: Urine 2420 2100 3100 Other: Voiding Method Indwelling Catheter Indwelling Catheter Indwelling Catheter ABP, PAP, CO, CI - Last Documented Arterial Blood Pressure 164/72 - Constitutional General appearance: Present: average body habitus, cooperative, no acute distress - EENT Eyes: Present: anicteric sclerae ENT: Present: hearing grossly normal - Respiratory Respiratory: bilateral: rales (Scattered) - Cardiovascular Rhythm: regular Heart sounds: normal: S1, S2 Abnormal Heart Sounds: Absent: systolic murmur, diastolic murmur, rub, S3 Gallop, S4 Gallop, click, other - Peripheral edema leg Peripheral Edema: bilateral: None - Gastrointestinal General gastrointestinal: Present: normal bowel sounds, soft - Labs CBC & Chem 7: 07/19/21 04:05 07/19/21 12:42 Labs: Abnormal Lab Results - Last 24 Hours (Table) 07/18/21 07/19/21 07/19/21 Range/Units 18:46 04:05 04:05 WBC 1.3 L* (3.8-10.6) k/uL RBC 2.59 L (3.80-5.40) m/uL Hgb 8.0 L (11.4-16.0) gm/dL Hct 23.7 L (34.0-46.0) % Plt Count 136 L (150-450) k/uL Neutrophils # (Manual) 1.10 L (1.3-7.7) k/uL Lymphocytes # (Manual) 0.13 L (1.0-4.8) k/uL Nucleated RBCs 1 H (0-0) /100 WBC ABG pH (7.35-7.45) ABG pCO2 (35-45) mmHg ABG pO2 (83-108) mmHg ABG HCO3 (21-25) mmol/L ABG Total CO2 (19-24) mmol/L ABG O2 Saturation (94-97) % Sodium 147 H (137-145) mmol/L Potassium 2.9 L (3.5-5.1) mmol/L Carbon Dioxide 37 H (22-30) mmol/L BUN 20 H (7-17) mg/dL Glucose 118 H (74-99) mg/dL POC Glucose (mg/dL) 132 H (75-99) mg/dL Calcium 8.0 L (8.4-10.2) mg/dL Total Protein 4.7 L (6.3-8.2) g/dL Albumin 2.1 L (3.5-5.0) g/dL 07/19/21 07/19/21 07/19/21 Range/Units 05:08 12:40 12:42 WBC (3.8-10.6) k/uL RBC (3.80-5.40) m/uL Hgb (11.4-16.0) gm/dL Hct (34.0-46.0) % Plt Count (150-450) k/uL Neutrophils # (Manual) (1.3-7.7) k/uL Lymphocytes # (Manual) (1.0-4.8) k/uL Nucleated RBCs (0-0) /100 WBC ABG pH 7.55 H (7.35-7.45) ABG pCO2 47 H (35-45) mmHg ABG pO2 (83-108) mmHg ABG HCO3 41 H* (21-25) mmol/L ABG Total CO2 43 H (19-24) mmol/L ABG O2 Saturation 98.1 H (94-97) % Sodium (137-145) mmol/L Potassium 3.2 L (3.5-5.1) mmol/L Carbon Dioxide (22-30) mmol/L BUN (7-17) mg/dL Glucose (74-99) mg/dL POC Glucose (mg/dL) 117 H (75-99) mg/dL Calcium (8.4-10.2) mg/dL Total Protein (6.3-8.2) g/dL Albumin (3.5-5.0) g/dL 07/19/21 Range/Units 13:12 WBC (3.8-10.6) k/uL RBC (3.80-5.40) m/uL Hgb (11.4-16.0) gm/dL Hct (34.0-46.0) % Plt Count (150-450) k/uL Neutrophils # (Manual) (1.3-7.7) k/uL Lymphocytes # (Manual) (1.0-4.8) k/uL Nucleated RBCs (0-0) /100 WBC ABG pH 7.55 H (7.35-7.45) ABG pCO2 (35-45) mmHg ABG pO2 80 L (83-108) mmHg ABG HCO3 39 H (21-25) mmol/L ABG Total CO2 41 H (19-24) mmol/L ABG O2 Saturation 97.2 H (94-97) % Sodium (137-145) mmol/L Potassium (3.5-5.1) mmol/L Carbon Dioxide (22-30) mmol/L BUN (7-17) mg/dL Glucose (74-99) mg/dL POC Glucose (mg/dL) (75-99) mg/dL Calcium (8.4-10.2) mg/dL Total Protein (6.3-8.2) g/dL Albumin (3.5-5.0) g/dL Assessment and Plan (1) Neutropenic fever Narrative/Plan: Neutropenia secondary to myelosuppressive chemotherapy. No fever overnight. WBC 1.3, ANC 1.1. CXR report Stable, Possibly cytokine release syndrome from WBC recovery. Pulm/Critical Care team following Closely and treating. Current Visit: Yes Status: Acute Priority: High Code(s): D70.9 - NEUTROPENIA, UNSPECIFIED; R50.81 - FEVER PRESENTING WITH CONDITIONS CLASSIFIED ELSEWHERE SNOMED Code(s): 108725215 (2) Pancytopenia due to antineoplastic chemotherapy Narrative/Plan: Hemoglobin and platelets stable, cont to improve. WBC 1.3, ANC is 1.1. Transfuse for hemoglobin less than 7, platelets less than 10,000 or if symptomatic. Irradiated blood products only. No GCS F until patient has confirmed remission. Current Visit: Yes Status: Acute Priority: High Code(s): D61.810 - ANTINEOPLASTIC CHEMOTHERAPY INDUCED PANCYTOPENIA; T45.1X5A - ADVERSE EFFECT OF ANTINEOPLASTIC AND IMMUNOSUP DRUGS, INIT SNOMED Code(s): 551245991159832 (3) Respiratory failure Narrative/Plan: Critical Care team, ICU management. Anticipate respiratory stability in the next 24 hours if r/t cyutokine release from WBC recovery. Chest x-ray was reported as stable today. Patient is status post BAL with Pulmonary Current Visit: Yes Status: Acute Priority: High Code(s): J96.90 - RESP IRATORY FAILURE, UNSP, UNSP W HYPOXIA OR HYPERCAPNIA SNOMED Code(s): 929694725 (4) AML (acute myeloid leukemia) Narrative/Plan: Patient is status post induction chemotherapy. 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 This is been held due to patient's acute situation. We will consider resuming once patient is extubated. Current Visit: Yes Status: Acute Priority: High Code(s): C92.00 - ACUTE MYELOBLASTIC LEUKEMIA, NOT HAVING ACHIEVED REMISSION SNOMED Code(s): 08648261
[2021-07-19 17:56] LABS: Glucose,Whole Blood 119 mg/dL (75-99)
[2021-07-19] MEDS: LORazepam 2 MG/ML INJ IV PRN (23:28)
[2021-07-19] MEDS: POTASSIUM CHLORIDE 10 MEQ in WATER FOR INJECTION 1 100ML.BAG IVPB SCH (23:29)
[2021-07-19 23:51] LABS: Glucose,Whole Blood 122 mg/dL (75-99)
[2021-07-20] MEDS: ACYCLOVIR SODIUM 500 MG in SODIUM CHLORIDE 0.9% 100 ML IVPB SCH ×4 (00:05→21:07)
[2021-07-20] MEDS: POTASSIUM CHLORIDE 10 MEQ in WATER FOR INJECTION 1 100ML.BAG IVPB SCH (02:31)
[2021-07-20] MEDS: INSULIN ASPART (NovoLOG) 100 UNIT/ML VIAL SQ SCH ×4 (02:32→19:15)
[2021-07-20] MEDS: CEFEPIME 2 GM in SODIUM CHLORIDE 0.9% 100 ML IVPB SCH ×2 (02:36→15:05)
[2021-07-20 05:02] LABS: Glucose,Whole Blood 118 mg/dL (75-99)
[2021-07-20 05:41] LABS: INR 1.1 (<1.2); Partial Thromboplastin Time 24.8 sec (22.0-30.0); Prothrombin Time 11.9 sec (9.0-12.0)
[2021-07-20 05:43] LABS: Albumin 2.4 g/dL (3.5-5.0); Calcium 8.2 mg/dL (8.4-10.2); Potassium 3.7 mmol/L (3.5-5.1); Total Bilirubin 0.9 mg/dL (0.2-1.3); Total Protein 5.2 g/dL (6.3-8.2)
[2021-07-20 06:16] LABS: Basophils % (A) 0 %; Eosinophils % (A) 0 %; HGB 9.1 gm/dL (11.4-16.0); Lymphocytes # (A) 0.2 k/uL (1.0-4.8); Lymphocytes % (A) 7 %; MCHC 32.6 g/dL (31.0-37.0); Mean Platelet Volume 8.3; Monocytes # (A) 0.2 k/uL (0-1.0); Monocytes % (A) 6 %; Neutrophils # (A) 2.1 k/uL (1.3-7.7); Neutrophils % (A) 84 %; Platelet Count 219 k/uL (150-450); RBC 3.05 m/uL (3.80-5.40); RDW 15.3 % (11.5-15.5); WBC 2.5 k/uL (3.8-10.6)
--- NOTE | 2021-07-20 06:58 | PN ---
PROGRESS NOTE DATE OF SERVICE: 07/19/2021. REASON FOR FOLLOWUP: Febrile neutropenia pneumonia. INTERVAL HISTORY: The patient is afebrile. The patient is status post repeat bronch. Did have overall improvement. The patient remains to be on vent, hemodynamically stable, not on pressor support. No diarrhea reported by the nursing staff. EXAMINATION: Blood pressure 146/59, pulse of 90, temperature 98.4. She is 97% on 60% FiO2. General description is a middle-aged female lying in bed in no distress. Respiratory system: Unlabored breathing, decreased intensity of breath sounds. No wheeze. Heart: S1, S2. Regular rate and rhythm. Abdomen: Soft, no tenderness. LABS: Hemoglobin 8, white count 1.3, BUN of 20, creatinine 0.98. DIAGNOSTIC IMPRESSION AND PLAN: Patient with febrile neutropenia with acute respiratory failure on the vent, status post repeat bronch. Those cultures will be followed. Antibiotic will be adjusted further as per discussion with manager crisis to continue with current antibiotic in the form of cefepime. and continue supportive care. MMODL / IJN: [id number] /
[2021-07-20] MEDS: LORazepam 2 MG/ML INJ IV PRN (06:59)
--- NOTE | 2021-07-20 07:35 | XR ---
EXAMINATION TYPE: XR chest 1V portable DATE OF EXAM: 07/20/2021 Comparison: 07/19/2021 Clinical History: 61 year-old female Tube placement Findings: Interval extubation and removal of NG tube. Left heart margin obscured by adjacent pleural parenchyma l opacity. Diffuse bilateral airspace disease persists and may be slightly worsened in the interval. Small bilateral pleural effusions also persist. Limited direct comparison due to previous supine imag e. Right PICC tip not seen beyond the mid SVC level. Impression: Continued airspace disease which may be slightly worsened from prior exam. Small pleural effusions pe rsist.
[2021-07-20] MEDS: ALBUTEROL NEBULIZED 2.5 MG/3 ML INHALATION SCH ×4 (07:58→21:01)
[2021-07-20] MEDS: NOREPINEPHRINE 4 MG in SODIUM CHLORIDE 0.9% 250 ML IV SCH (08:04)
--- NOTE | 2021-07-20 10:32 | P.PN ---
Subjective Progress Note Date: 07/20/21 Principal diagnosis: AML, subsequent neutropenic fever post induction chemo In follow-up today patient is on bi-pap, at bedside. She is able to communicate, c/o dry mouth, no pain. Objective - Vital Signs Vital signs: Vital Signs Temp 98.5 F 07/20/21 04:00 Pulse 103 H 07/20/21 10:00 Resp 27 H 07/20/21 10:00 BP 102/55 07/16/21 04:02 Pulse Ox 93 L 07/20/21 10:00 Intake & Output 07/19/21 07/20/21 07/20/21 18:59 06:59 18:59 Intake Total 1824.377 606 13 Output Total 3375 1875 150 Balance -1550.623 -1269 -137 Weight 88.6 kg Intake: IV 1133 606 13 0.9 carriers 110 120 10 Acyclovir Sodium 500 mg 100 In Sodium Chloride 0.9% 100 ml @ 100 mls/hr IVPB Q8H [facility] Rx#:[id number] D5-0.45% NaCl with KCl 565 450 30Meq/l 1,000 ml @ 75 mls /hr IV .[id number] ANJ[facility] Rx#: [id number] Potassium Chloride 20 meq 100 In Water For Injection 1 100ml.bag @ 50 mls/hr IVPB Q2H [facility] Rx#: [id number] Potassium Chloride 20 meq 100 In Water For Injection 1 100ml.bag @ 50 mls/hr IVPB Q2H [facility] Rx#: [id number] Voriconazole 360 mg In 125 Sodium Chloride 0.9% 250 ml @ 125 mls/hr IVPB Q12HR [facility] Rx#:[id number] arterial line 33 36 3 Intake, IV Titration 607.377 Amount Cefepime 2 gm In Sodium 75 Chloride 0.9% 100 ml @ 25 mls/hr IVPB Q12H [facility] Rx# :[id number] Magnesium Sulfate-D5w Pmx 200 1 gm In Dextrose/Water 1 100ml.bag @ 100 mls/hr IVPB Q1H ANJ[facility] Rx#: [id number] Potassium Chloride 20 meq 100 In Water For Injection 1 100ml.bag @ 50 mls/hr IVPB Q2H ANJ[facility] Rx#: [id number] Voriconazole 360 mg In 125 Sodium Chloride 0.9% 250 ml @ 125 mls/hr IVPB Q12HR [facility] Rx#:[id number] propofoL 1,000 mg In 107.377 Empty Bag 1 bag @ Titrate IV .Q0M ANJ[facility] Rx#: [id number] Tube Feeding 54 Other 30 Output: Urine 3375 1875 150 Other: Voiding Method Indwelling Catheter Indwelling Catheter Indwelling Catheter ABP, PAP, CO, CI - Last Documented Arterial Blood Pressure 162/72 - Constitutional General appearance: Present: average body habitus, cooperative, no acute distress - EENT Eyes: Present: anicteric sclerae, EOMI ENT: Present: hearing grossly normal - Respiratory Respiratory: bilateral: rales - Cardiovascular Rhythm: regular Heart sounds: normal: S1, S2 Abnormal Heart Sounds: Absent: systolic murmur, diastolic murmur, rub, S3 Gallop, S4 Gallop, click, other - Peripheral edema leg Peripheral Edema: bilateral: None - Gastrointestinal General gastrointestinal: Present: normal bowel sounds, soft. Absent: absent bowel sounds, decreased bowel sounds, distended, hepatomegaly, hyperactive bowel sounds, organomegaly, rigid, scaphoid, splenomegaly, tenderness, umbilical hernia, ventral hernia - Integumentary Integumentary: Present: normal turgor - Musculoskeletal Musculoskeletal: Present: generalized weakness, strength equal bilaterally - Psychiatric Psychiatric: Present: A&O x's 3, appropriate affect - Labs CBC & Chem 7: 07/20/21 04:50 07/20/21 04:50 Labs: Abnormal Lab Results - Last 24 Hours (Table) 07/19/21 07/19/21 07/19/21 Range/Units 12:40 12:42 13:12 WBC (3.8-10.6) k/uL RBC (3.80-5.40) m/uL Hgb (11.4-16.0) gm/dL Hct (34.0-46.0) % Lymphocytes # (1.0-4.8) k/uL ABG pH 7.55 H (7.35-7.45) ABG pO2 80 L (83-108) mmHg ABG HCO3 39 H (21-25) mmol/L ABG Total CO2 41 H (19-24) mmol/L ABG O2 Saturation 97.2 H (94-97) % Sodium (137-145) mmol/L Potassium 3.2 L (3.5-5.1) mmol/L Chloride (98-107) mmol/L Carbon Dioxide (22-30) mmol/L Glucose (74-99) mg/dL POC Glucose (mg/dL) 117 H (75-99) mg/dL Calcium (8.4-10.2) mg/dL AST (14-36) U/L Total Protein (6.3-8.2) g/dL Albumin (3.5-5.0) g/dL 07/19/21 07/19/21 07/20/21 Range/Units 17:54 23:48 04:50 WBC 2.5 L (3.8-10.6) k/uL RBC 3.05 L (3.80-5.40) m/uL Hgb 9.1 L (11.4-16.0) gm/dL Hct 28.0 L (34.0-46.0) % Lymphocytes # 0.2 L (1.0-4.8) k/uL ABG pH (7.35-7.45) ABG pO2 (83-108) mmHg ABG HCO3 (21-25) mmol/L ABG Total CO2 (19-24) mmol/L ABG O2 Saturation (94-97) % Sodium (137-145) mmol/L Potassium (3.5-5.1) mmol/L Chloride (98-107) mmol/L Carbon Dioxide (22-30) mmol/L Glucose (74-99) mg/dL POC Glucose (mg/dL) 119 H 122 H (75-99) mg/dL Calcium (8.4-10.2) mg/dL AST (14-36) U/L Total Protein (6.3-8.2) g/dL Albumin (3.5-5.0) g/dL 07/20/21 07/20/21 Range/Units 04:50 04:58 WBC (3.8-10.6) k/uL RBC (3.80-5.40) m/uL Hgb (11.4-16.0) gm/dL Hct (34.0-46.0) % Lymphocytes # (1.0-4.8) k/uL ABG pH (7.35-7.45) ABG pO2 (83-108) mmHg ABG HCO3 (21-25) mmol/L ABG Total CO2 (19-24) mmol/L ABG O2 Saturation (94-97) % Sodium 148 H (137-145) mmol/L Potassium (3.5-5.1) mmol/L Chloride 110 H (98-107) mmol/L Carbon Dioxide 35 H (22-30) mmol/L Glucose 126 H (74-99) mg/dL POC Glucose (mg/dL) 118 H (75-99) mg/dL Calcium 8.2 L (8.4-10.2) mg/dL AST 46 H (14-36) U/L Total Protein 5.2 L (6.3-8.2) g/dL Albumin 2.4 L (3.5-5.0) g/dL Microbiology - Last 24 Hours (Table) 07/19/21 09:30 Gram Stain - Preliminary Bronchial Washings - Random Bronchial Washings Culture - Preliminary 07/19/21 09:30 Fungal Culture - Preliminary Bronchial Washings - Random - Imaging and Cardiology Chest x-ray: report reviewed Assessment and Plan (1) Neutropenic fever Narrative/Plan: Neutropenia secondary to myelosuppressive chemotherapy. No fever for several days now. WBC 2.5, ANC 2.1. CXR report slightly worse. Suspect cytokine release syndrome from WBC recovery. Pulm/Critical Care team following. Steroids added. Will begin to wean abx, antiviral and antifungals as pt condition improves. Current Visit: Yes Status: Acute Priority: High Code(s): D70.9 - NEUTROPENIA, UNSPECIFIED; R50.81 - FEVER PRESENTING WITH CONDITIONS CLASSIFIED ELSEWHERE SNOMED Code(s): 892988956 (2) Pancytopenia due to antineoplastic chemotherapy Narrative/Plan: Hemoglobin stable, better. Platelets normal. WBC 2.5, ANC is 2.1. No GCS F until patient has confirmed remission. Current Visit: Yes Status: Acute Priority: High Code(s): D61.810 - ANTINEO PLASTIC CHEMOTHERAPY INDUCED PANCYTOPENIA; T45.1X5A - ADVERSE EFFECT OF ANTINEOPLASTIC AND IMMUNOSUP DRUGS, INIT SNOMED Code(s): 238672003209583 (3) Respiratory failure Narrative/Plan: Critical Care team, ICU management. Bi-pap. Chest x-ray was reported as slightly worse today. Discussed case briefly with Pulm, steroids added. Patient is status post BAL, pending cytology Current Visit: Yes Status: Acute Priority: High Code(s): J96.90 - RESPIRATORY FAILURE, UNSP, UNSP W HYPOXIA OR HYPERCAPNIA SNOMED Code(s): 452238721 (4) AML (acute myeloid leukemia) Narrative/Plan: Patient is status post induction chemotherapy. 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 This is been held due to patient's acute situation. Will not start this cycle. Pt is at completion of induction cycle. Bone marrow biopsy in the next week to evaluate if pt is in remission Current Visit: Yes Status: Acute Priority: High Code(s): C92.00 - ACUTE MYELOBLASTIC LEUKEMIA, NOT HAVING ACHIEVED REMISSION SNOMED Code(s): 44277370 Plan: Doctor attests: I performed a history and physical examination of this patient, developed impression and plan of care. Discussed with dictator. I agree with dictators note, documented as a scribe.
[2021-07-20] MEDS: SALT AND SODA MOUTHWASH 1,000 ML PO SCH ×4 (10:59→21:07)
[2021-07-20] MEDS: PANTOPRAZOLE 40 MG/10 ML VIAL IV SCH (10:59)
[2021-07-20] MEDS: PARoxetine 10 MG TAB PO SCH (10:59)
[2021-07-20] MEDS: CHLORHEXIDINE GLUCONATE 15 ML CUP MUCOUS MEM SCH (10:59)
[2021-07-20] MEDS: CHOLESTYRAMINE (WITH SUGAR) 4 GM PACKET PO SCH ×2 (11:00→16:44)
[2021-07-20] MEDS: ZINC SULFATE 220 MG CAP PO SCH (11:00)
[2021-07-20] MEDS: methylPREDNISolone SOD SUCCI 125 MG/2 ML VIAL IV SCH ×2 (11:00→17:22)
[2021-07-20 12:03] LABS: Glucose,Whole Blood 90 mg/dL (75-99)
--- NOTE | 2021-07-20 13:04 | P.PN ---
Subjective Progress Note Date: 07/20/21 07/20/2021, the patient is being seen for a follow-up. As mentioned earlier, the patient was in a mechanical ventilator and yesterday she was given a bronchoscopy and following that she was given a weaning trial and the patient did extremely well to the point where the patient was able to pass a spontaneous breathing trial without any major difficulties. As such, I extubate the patient to a BiPAP at a pressure of 12/6 cm of water and FiO2 is being titrated. Earlier this morning, the patient became slightly more anxious and hypoxic and her FiO2 was increased up to 75%. She remains on BiPAP which she is tolerating very well. She is able to follow commands and answer questions appropriately. She is weak. However, she is alert. She is able to communicate. She is afebrile. She is hemodynamically stable. Note that the patient remains on D5 water with normal saline at the rate of 75 mL an hour. Urine output is adequate and the patient's net fluid balance is been -836 over the past 24 hours. The patient remains afebrile. All the cultures are still negative. As stated earlier, PCP stain was negative, fungicidal was negative, fungal cultures were negative, viral cultures were negative, Aspergillus antigen was negative, regular cultures were negative and the repeated local alveolar lavage was done and the results are still pending for now. The chest x-ray continues to show diffuse breath and pulmonary infiltrates. Hematologic profile is also improving. The patient wasn't on is up to 2.5 with a hemoglobin of 9.1 and a platelet count of 219. Sodium is at 148. Urinalysis 70 with a creatinine of 0.9. LFTs are normal. No hypotension. Hemodynamically stable. Objective - Vital Signs Vital signs: Vital Signs Temp 98.5 F 07/20/21 04:00 Pulse 101 H 07/20/21 11:34 Resp 27 H 07/20/21 10:00 BP 102/55 07/16/21 04:02 Pulse Ox 93 L 07/20/21 10:00 Intake & Output 07/19/21 07/20/21 07/20/21 18:59 06:59 18:59 Intake Total 1824.377 606 13 Output Total 1355 1875 150 Balance -1550.623 -1269 -137 Weight 88.6 kg Intake: IV 1133 606 13 0.9 carriers 110 120 10 Acyclovir Sodium 500 mg 100 In Sodium Chloride 0.9% 100 ml @ 100 mls/hr IVPB Q8H [facility] Rx#:[id number] D5-0.45% NaCl with KCl 565 450 30Meq/l 1,000 ml @ 75 mls /hr IV .[id number] [facility] Rx#: [id number] Potassium Chloride 20 meq 100 In Water For Injection 1 100ml.bag @ 50 mls/hr IVPB Q2H [facility] Rx#: [id number] Potassium Chloride 20 meq 100 In Water For Injection 1 100ml.bag @ 50 mls/hr IVPB Q2H [facility] Rx#: [id number] Voriconazole 360 mg In 125 Sodium Chloride 0.9% 250 ml @ 125 mls/hr IVPB Q12HR [facility] Rx#:[id number] arterial line 33 36 3 Intake, IV Titration 607.377 Amount Cefepime 2 gm In Sodium 75 Chloride 0.9% 100 ml @ 25 mls/hr IVPB Q12H [facility] Rx# :[id number] Magnesium Sulfate-D5w Pmx 200 1 gm In Dextrose/Water 1 100ml.bag @ 100 mls/hr IVPB Q1H [facility] Rx#: [id number] Potassium Chloride 20 meq 100 In Water For Injection 1 100ml.bag @ 50 mls/hr IVPB Q2H [facility] Rx#: [id number] Voriconazole 360 mg In 125 Sodium Chloride 0.9% 250 ml @ 125 mls/hr IVPB Q12HR [facility] Rx#:[id number] propofoL 1,000 mg In 107.377 Empty Bag 1 bag @ Titrate IV .Q0M [facility] Rx#: [id number] Tube Feeding 54 Other 30 Output: Urine 3375 1875 150 Other: Voiding Method Indwelling Catheter Indwelling Catheter Indwelling Catheter ABP, PAP, CO, CI - Last Documented Arterial Blood Pressure 162/72 - Exam Gen. appearance the patient is slightly anxious and the patient is currently on full face mask BiPAP. He is comfortable. No signs of any respiratory distress. Vasopressin muscles of breathing at this point in time. Head exam was generally normal. There was no scleral icterus or corneal arcus. Mucous membranes were moist. Neck was supple and without jugular venous distension, thyromegaly, or carotid bruits. Carotids were easily palpable bilaterally. There was no adenopathy. Lungs sounds are diminished and there are diffuse rhonchi heard throughout the lung his bilaterally. Otherwise the breath sounds are equal for now. No si gnificant wheezes. Cardiac exam revealed the PMI to be normally situated and sized. The rhythm was regular and no extrasystoles were noted during several minutes of auscultation. The first and second heart sounds were normal and physiologic splitting of the second heart sound was noted. There were no murmurs, rubs, clicks, or gallops. Abdominal exam revealed normal bowel sounds. The abdomen was soft, non-tender, and without masses, organomegaly, or appreciable enlargement of the abdominal aorta. Examination of the extremities revealed easily palpable radial, femoral and pedal pulses. There was no cyanosis, clubbing or edema. Examination of the skin revealed no evidence of significant rashes, suspicious appearing nevi or other concerning lesions. The patient has petechia in the lower extremities bilaterally related to underlying thrombocytopenia. Few areas of bruising, not extensive. The patient has increased edema in lower extremities bilaterally. Neurologically, the patient is awake and alert and moving all 4 extremities without limitation. No significant sedation for now.. No focal neurological deficits. - Labs CBC & Chem 7: 07/20/21 04:50 07/20/21 04:50 Labs: Abnormal Lab Results - Last 24 Hours (Table) 07/19/21 07/19/21 07/19/21 Range/Units 12:42 13:12 17:54 WBC (3.8-10.6) k/uL RBC (3.80-5.40) m/uL Hgb (11.4-16.0) gm/dL Hct (34.0-46.0) % Lymphocytes # (1.0-4.8) k/uL ABG pH 7.55 H (7.35-7.45) ABG pO2 80 L (83-108) mmHg ABG HCO3 39 H (21-25) mmol/L ABG Total CO2 41 H (19-24) mmol/L ABG O2 Saturation 97.2 H (94-97) % Sodium (137-145) mmol/L Potassium 3.2 L (3.5-5.1) mmol/L Chloride (98-107) mmol/L Carbon Dioxide (22-30) mmol/L Glucose (74-99) mg/dL POC Glucose (mg/dL) 119 H (75-99) mg/dL Calcium (8.4-10.2) mg/dL AST (14-36) U/L Total Protein (6.3-8.2) g/dL Albumin (3.5-5.0) g/dL 07/19/21 07/20/21 07/20/21 Range/Units 23:48 04:50 04:50 WBC 2.5 L (3.8-10.6) k/uL RBC 3.05 L (3.80-5.40) m/uL Hgb 9.1 L (11.4-16.0) gm/dL Hct 28.0 L (34.0-46.0) % Lymphocytes # 0.2 L (1.0-4.8) k/uL ABG pH (7.35-7.45) ABG pO2 (83-108) mmHg ABG HCO3 (21-25) mmol/L ABG Total CO2 (19-24) mmol/L ABG O2 Saturation (94-97) % Sodium 148 H (137-145) mmol/L Potassium (3.5-5.1) mmol/L Chloride 110 H (98-107) mmol/L Carbon Dioxide 35 H (22-30) mmol/L Glucose 126 H (74-99) mg/dL POC Glucose (mg/dL) 122 H (75-99) mg/dL Calcium 8.2 L (8.4-10.2) mg/dL AST 46 H (14-36) U/L Total Protein 5.2 L (6.3-8.2) g/dL Albumin 2.4 L (3.5-5.0) g/dL 07/20/21 Range/Units 04:58 WBC (3.8-10.6) k/uL RBC (3.80-5.40) m/uL Hgb (11.4-16.0) gm/dL Hct (34.0-46.0) % Lymphocytes # (1.0-4.8) k/uL ABG pH (7.35-7.45) ABG pO2 (83-108) mmHg ABG HCO3 (21-25) mmol/L ABG Total CO2 (19-24) mmol/L ABG O2 Saturation (94-97) % Sodium (137-145) mmol/L Potassium (3.5-5.1) mmol/L Chloride (98-107) mmol/L Carbon Dioxide (22-30) mmol/L Glucose (74-99) mg/dL POC Glucose (mg/dL) 118 H (75-99) mg/dL Calcium (8.4-10.2) mg/dL AST (14-36) U/L Total Protein (6.3-8.2) g/dL Albumin (3.5-5.0) g/dL Microbiology - Last 24 Hours (Table) 07/19/21 09:30 Gram Stain - Preliminary Bronchial Washings - Random Bronchial Washings Culture - Preliminary 07/19/21 09:30 Fungal Culture - Preliminary Bronchial Washings - Random Assessment and Plan Plan: 1 acute bilateral pneumonia with rapid progression of bilateral pulmonary infiltrates and the patient currently has extensive bilateral airspace disease and coarse interstitial pulmonary infiltrates, consider opportunistic infections especially with her underlying immunosuppression. The bronchioloalveolar lavage has been negative thus far. PCP stain of been negative. Legionella urine antigen was negative. Lavage with viral screen of the bronchioloalveolar lavage has been negative. COVID 19 testing was negative. The patient's regular bacterial cultures and the fungal cultures are negative. She remains on broad- spectrum antibiotics. Remains on the same antibiotic coverage includes cefepime, Levaquin, acyclovir and voriconazole. with broad-spectrum antibiotics. Hematologic profile is essentially improving. The patient had a repeat bronchoscopy and the bronchioloalveolar lavage. Repeat cultures still pending for now. There is still negative. Meanwhile, the patient continues to have diffuse bilateral pulmonary infiltrates. She was extubated again on 07/19/2021 attended to the patient on a BiPAP at a pressure of 12/6 cm of water with an FiO2 of 75%. 2 acute hypoxic respiratory failure secondary to above 3 shortness of breath secondary to but not limited to above mentioned pneumonia. 4 acute myeloid leukemia post induction chemotherapy, remains leukopenic, the white cell count is gradually improving, white cell count is up to 2.5 5 pancytopenia, with early signs of recovery of the bone marrow post induction chemotherapy in a patient with AML. 6 Afebrile to having episodic fever on multiple occasions last week. 7 electrolytes disturbance, being managed and replaced 8 diarrhea, stool for C. diff has been negative, no diarrhea 9 paroxysmal atrial fibrillation, current rhythm is sinus and the patient will be taken off the Cardizem drip. The current rhythm is sinus Plan Keep the patient on BiPAP at a pressure of 12/6 with an FiO2 of 75% and wean down the FiO2 as tolerated We will await the results of the repeat bronchioloalveolar lavage Antibodies can be downgraded , to be discussed with infectious disease We'll discuss with the oncology hematology regarding the possibility of systemic steroids Monitor hematologic profile and the patient's white cell count is improving Echocardiogram to be completed and the patient is a preserved LV function with an ejection fraction of 50-55%. Condition remains critical We'll continue to follow. We'll make further decisions based on her progress. Condition remains critical. Evaluation was done more than 30 minutes. was updated. Case was also discussed with hematology oncology. Time with Patient: Greater than 30
--- NOTE | 2021-07-20 13:15 | P.PN ---
Subjective Progress Note Date: 07/20/21 Pt was extubated yesterday to BIPAP and doing well. BAL with Cx are pending. Voriconazole d/c'd, vancomycin d/c'd; ongoing cefepime, levoquin, acyclovir. WBC is improving to 2.5. PLTs are 219. Hgb stable at 9.1. Multiple electrolyte abnormalities: hypernatremia, elevated bicarb. On D5/0.45NS at 20. BIPAP being adjusted by pulmonary. Objective - Vital Signs Vital signs: Vital Signs Temp 98.5 F 07/20/21 04:00 Pulse 101 H 07/20/21 11:34 Resp 27 H 07/20/21 10:00 BP 102/55 07/16/21 04:02 Pulse Ox 93 L 07/20/21 10:00 Intake & Output 07/19/21 07/20/21 07/20/21 18:59 06:59 18:59 Intake Total 1824.377 606 13 Output Total 3375 1875 150 Balance -1550.623 -1269 -137 Weight 88.6 kg Intake: IV 1133 606 13 0.9 carriers 110 120 10 Acyclovir Sodium 500 mg 100 In Sodium Chloride 0.9% 100 ml @ 100 mls/hr IVPB Q8H [facility] Rx#:[id number] D5-0.45% NaCl with KCl 565 450 30Meq/l 1,000 ml @ 75 mls /hr IV .[id number] [facility] Rx#: [id number] Potassium Chloride 20 meq 100 In Water For Injection 1 100ml.bag @ 50 mls/hr IVPB Q2H [facility] Rx#: [id number] Potassium Chloride 20 meq 100 In Water For Injection 1 100ml.bag @ 50 mls/hr IVPB Q2H [facility] Rx#: [id number] Voriconazole 360 mg In 125 Sodium Chloride 0.9% 250 ml @ 125 mls/hr IVPB Q12HR [facility] Rx#:[id number] arterial line 33 36 3 Intake, IV Titration 607.377 Amount Cefepime 2 gm In Sodium 75 Chloride 0.9% 100 ml @ 25 mls/hr IVPB Q12H [facility] Rx# :[id number] Magnesium Sulfate-D5w Pmx 200 1 gm In Dextrose/Water 1 100ml.bag @ 100 mls/hr IVPB Q1H [facility] Rx#: [id number] Potassium Chloride 20 meq 100 In Water For Injection 1 100ml.bag @ 50 mls/hr IVPB Q2H [facility] Rx#: [id number] Voriconazole 360 mg In 125 Sodium Chloride 0.9% 250 ml @ 125 mls/hr IVPB Q12HR [facility] Rx#:[id number] propofoL 1,000 mg In 107.377 Empty Bag 1 bag @ Titrate IV .Q0M [facility] Rx#: [id number] Tube Feeding 54 Other 30 Output: Urine 3375 1875 150 Other: Voiding Method Indwelling Catheter Indwelling Catheter Indwelling Catheter ABP, PAP, CO, CI - Last Documented Arterial Blood Pressure 162/72 - Exam Gen: awake, alert HEENT: normocephalic, atraumatic, good hearing acuity, moist mucous membranes Resp: BIPAP 10/30 GI: soft, NTTP, ND : no SPT, no CVAT, putnam catheter is present MSK: no pitting edema, no clubbing - Labs CBC & Chem 7: 07/20/21 04:50 07/20/21 04:50 Labs: Abnormal Lab Results - Last 24 Hours (Table) 07/19/21 07/19/21 07/19/21 Range/Units 12:42 13:12 17:54 WBC (3.8-10.6) k/uL RBC (3.80-5.40) m/uL Hgb (11.4-16.0) gm/dL Hct (34.0-46.0) % Lymphocytes # (1.0-4.8) k/uL ABG pH 7.55 H (7.35-7.45) ABG pO2 80 L (83-108) mmHg ABG HCO3 39 H (21-25) mmol/L ABG Total CO2 41 H (19-24) mmol/L ABG O2 Saturation 97.2 H (94-97) % Sodium (137-145) mmol/L Potassium 3.2 L (3.5-5.1) mmol/L Chloride (98-107) mmol/L Carbon Dioxide (22-30) mmol/L Glucose (74-99) mg/dL POC Glucose (mg/dL) 119 H (75-99) mg/dL Calcium (8.4-10.2) mg/dL AST (14-36) U/L Total Protein (6.3-8.2) g/dL Albumin (3.5-5.0) g/dL 07/19/21 07/20/21 07/20/21 Range/Units 23:48 04:50 04:50 WBC 2.5 L (3.8-10.6) k/uL RBC 3.05 L (3.80-5.40) m/uL Hgb 9.1 L (11.4-16.0) gm/dL Hct 28.0 L (34.0-46.0) % Lymphocytes # 0.2 L (1.0-4.8) k/uL ABG pH (7.35-7.45) ABG pO2 (83-108) mmHg ABG HCO3 (21-25) mmol/L ABG Total CO2 (19-24) mmol/L ABG O2 Saturation (94-97) % Sodium 148 H (137-145) mmol/L Potassium (3.5-5.1) mmol/L Chloride 110 H (98-107) mmol/L Carbon Dioxide 35 H (22-30) mmol/L Glucose 126 H (74-99) mg/dL POC Glucose (mg/dL) 122 H (75-99) mg/dL Calcium 8.2 L (8.4-10.2) mg/dL AST 46 H (14-36) U/L Total Protein 5.2 L (6.3-8.2) g/dL Albumin 2.4 L (3.5-5.0) g/dL 07/20/21 Range/Units 04:58 WBC (3.8-10.6) k/uL RBC (3.80-5.40) m/uL Hgb (11.4-16.0) gm/dL Hct (34.0-46.0) % Lymphocytes # (1.0-4.8) k/uL ABG pH (7.35-7.45) ABG pO2 (83-108) mmHg ABG HCO3 (21-25) mmol/L ABG Total CO2 (19-24) mmol/L ABG O2 Saturation (94-97) % Sodium (137-145) mmol/L Potassium (3.5-5.1) mmol/L Chloride (98-107) mmol/L Carbon Dioxide (22-30) mmol/L Glucose (74-99) mg/dL POC Glucose (mg/dL) 118 H (75-99) mg/dL Calcium (8.4-10.2) mg/dL AST (14-36) U/L Total Protein (6.3-8.2) g/dL Albumin (3.5-5.0) g/dL Microbiology - Last 24 Hours (Table) 07/19/21 09:30 Gram Stain - Preliminary Bronchial Washings - Random Bronchial Washings Culture - Preliminary 07/19/21 09:30 Fungal Culture - Preliminary Bronchial Washings - Random Assessment and Plan Assessment: Neutropenic fevers Acute myelogenous leukemia Pancytopenia, chemo induced Pneumonia Acute hypoxic respiratory failure, vent dependent ARDS Diarrhea Sepsis without septic shock - WBC and PLT increasing as of 07/16 - Covid negative, legionella urine Ag negative, Aspergillus IgE negative - 1, 3 - beta- D- glucan is negative - Viral studies negative. - all cultures negative to date. - PCP stain is negative - bronch 07/11 with cultures negative to date. - bronch 07/19 with cultures pending - ID, Pulm, Heme/onc recs appreciated - Continue with cefepime, levaquin, and acyclovir - D/c'd voriconazole on 07/20; vancomycin random level to be drawn 07/20 - cholestyramine - vent management per pulm - galactomannan pending (ordered on 07/17; turn around time is usually 3 days) A fib with RVR, currently in normal sinus rhythm -Cardizem drip was discontinued on 07/15. - No anticoagulation due to thrombocytopenia and high risk of bleeding - tele - echo essential within normal limits - consider cardio consult if echo is abnormal Episode of tremors - EEG negative - CT head negative - neurology recs Moderate to severe MR Hypokalemia Hypomagnesemia Hypophosphatemia Hypocalcemia - replace as indicated Poor over all prognosis, however, improving this admission Awaiting direct AB stain results from [facility] [id number], not currently available.
[2021-07-20] MEDS: D5-0.45% NACL WITH KCL 30MEQ/L 1,000 ML IV SCH (15:05)
--- NOTE | 2021-07-20 17:01 | PN ---
PROGRESS NOTE DATE OF SERVICE: 07/20/2021 REASON FOR FOLLOWUP: Febrile neutropenia, pneumonia. INTERVAL HISTORY: The patient is afebrile. The patient has been extubated. The patient is hemodynamically stable, currently on a BiPAP. Denies having any chest pain or any worsening cough. No abdominal pain or diarrhea. PHYSICAL EXAMINATION: Blood pressure 158/69, pulse of 101, temperature 98. She is 97% on BiPAP. GENERAL DESCRIPTION: General description is a middle-aged female lying in bed in no distress. RESPIRATORY SYSTEM: Unlabored breathing. Decreased intensity of breath sounds. No wheeze. HEART: S1, S2. Regular rate and rhythm. ABDOMEN: Soft. No tenderness. LABS: Hemoglobin is , white count , BUN of 17, creatinine 0.90. DIAGNOSTIC IMPRESSION AND PLAN: Patient with febrile neutropenia and acute respiratory failure, concern for possible pneumonia, questionable ARDS pattern. Culture has been negative. Discontinue vancomycin continue with cefepime and monitor clinical course closely. at the bedside. Questions were answered. MMODL / IJN: [id number] /
[2021-07-20 17:29] LABS: Glucose,Whole Blood 139 mg/dL (75-99)
[2021-07-20] MEDS ORDERED: carvediloL 3.125 MG TAB PO SCH (17:30)
[2021-07-20] MEDS ORDERED: DEXTROSE 5% IN WATER 100 ML with AMIODARONE 150 MG IV ONE (17:55)
[2021-07-20] MEDS ORDERED: AMIODARONE 360 MG in DEXTROSE 5% IN WATER 200 ML IV ONE ×2 (17:55)
[2021-07-20 18:23] LABS: Basophils % (A) 1 %; Eosinophils % (A) 0 %; HCT 26.9 % (34.0-46.0); HGB 8.7 gm/dL (11.4-16.0); Lymphocytes # (A) 0.1 k/uL (1.0-4.8); Lymphocytes % (A) 4 %; MCH 30.1 pg (25.0-35.0); MCHC 32.5 g/dL (31.0-37.0); MCV 92.6 fL (80.0-100.0); Monocytes # (A) 0.2 k/uL (0-1.0); Monocytes % (A) 9 %; Neutrophils % (A) 85 %; Platelet Count 197 k/uL (150-450); RDW 15.3 % (11.5-15.5); WBC 2.4 k/uL (3.8-10.6)
[2021-07-20 18:23] LABS: ABG Base Excess 10.7 mmol/L; ABG HCO3 34 mmol/L (21-25); ABG Oxygen Saturation 97.3 % (94-97); ABG PCO2 45 mmHg (35-45); ABG PH 7.49 (7.35-7.45); ABG PO2 84 mmHg (83-108); ABG TCO2 35 mmol/L (19-24); Allen Test Performed? Yes
[2021-07-20] MEDS ORDERED: METOPROLOL TARTRATE 5 MG/5 ML VIAL IVP ONE (18:46)
[2021-07-20 18:52] LABS: Albumin 2.5 g/dL (3.5-5.0); Calcium 8.2 mg/dL (8.4-10.2); Potassium 3.6 mmol/L (3.5-5.1); Total Bilirubin 1.1 mg/dL (0.2-1.3); Total Protein 5.4 g/dL (6.3-8.2)
--- NOTE | 2021-07-20 20:06 | XR ---
EXAMINATION TYPE: XR chest 1V portable DATE OF EXAM: 07/20/2021 COMPARISON: 07/20/2021 HISTORY: 61 years Female. STUDY INDICATION GIVEN: new onset AFib with RVR . TECHNIQUE: Portable AP chest radiograph FINDINGS AND IMPRESSION: Slightly decreased opacities in the lungs which could be on the basis of airspace disease pneumonia s uperimposed on a background of mild pulmonary edema. No pneumothorax or pleural effusion. Heart is normal in size. Right upper extremity PICC tip at the superior vena cava.
[2021-07-20] MEDS: METOPROLOL TARTRATE 25 MG TAB PO SCH (21:07)
[2021-07-21 00:11] LABS: Glucose,Whole Blood 176 mg/dL (75-99)
[2021-07-21] MEDS: INSULIN ASPART (NovoLOG) 100 UNIT/ML VIAL SQ SCH ×4 (00:18→18:37)
[2021-07-21] MEDS: AMIODARONE 450 MG in DEXTROSE 5% IN WATER 250 ML IV SCH ×4 (00:18→11:43)
[2021-07-21] MEDS: CEFEPIME 2 GM in SODIUM CHLORIDE 0.9% 100 ML IVPB SCH ×2 (00:18→11:43)
[2021-07-21] MEDS: methylPREDNISolone SOD SUCCI 125 MG/2 ML VIAL IV SCH ×4 (00:18→18:36)
[2021-07-21] MEDS: D5-0.45% NACL WITH KCL 30MEQ/L 1,000 ML IV SCH ×2 (04:18→18:36)
--- NOTE | 2021-07-21 05:36 | P.CONS ---
History of Present Illness - Chief Complaint Medical debility - History of Present Illness I had the opportunity to see patient for inpatient rehab consultation with regard to medical debility. She was admitted to [facility] July 04 with chemotherapy for AML with syncope episode and she. Seen by neurology Dr. hwang and seen by Dr. Marcano for sepsis. Chest x-rays followed a note airspace disease and mild effusions. Patient seen by Dr. Sanabria for bilateral pneumonia. His started therapies. PT reports two-person minimal assistance for bed mobility and transfers. Possible gait up to 2 feet. OT reports maximal assistance for upper dressing and bathing and total assistance for lower dressing and t oileting. 2 person maximal assistance functional ability and transfers. Previous functional history as elicited from patient: 61-year-old left-handed female who is lives in one floor home with . Both retired. does cooking, laundry, driving. Patient describes independent with sponge bath and gait without device. Doesn't smoke or drink. Review of Systems Review of systems: ENT: Denies sneezes or discharge. Eyes: Denies discharge or photophobia. Cardiac: Denies chest pain or palpitation. Pulmonary: Denies cough or shortness of breath. Breast: Denies discharge or lumps. Gastrointestinal: Denies nausea, emesis, constipation, diarrhea. Genitourinary: Denies discharge or frequency. Musculoskeletal: Denies muscle or bone aches. Neurologic: Generally weak. Endocrine: Denies shakes or sweats. Oncology: Denies cancers. Dermatologic: Denies rash, itching, pruritus. ALLERGY/immunology: Denies sneezes, rashes. Past Medical History Past Medical History: Cancer, Osteoarthritis (OA) Additional Past Medical History / Comment(s): AML History of Any Multi-Drug Resistant Organisms: None Reported Past Surgical History: Breast Surgery, Orthopedic Surgery Additional Past Surgical History / Comment(s): breast biopsy, arthroscopy left and right knee Past Anesthesia/Blood Transfusion Reactions: No Reported Reaction Past Psychological History: Anxiety Smoking Status: Never smoker Past Alcohol Use History: None Reported Past Drug Use History: None Reported - Past Family History Father Family Medical History: Cancer Mother Family Medical History: Diabetes Mellitus Medications and Allergies Home Medications Medication Instructions Recorded Confirmed Type PARoxetine [Paxil] 10 mg PO DAILY 12/17/18 07/03/21 History Multivit-Min/Iron/Folic/Lutein 1 tab PO DAILY 06/19/21 07/03/21 History [Centrum Silver Women Tablet] Acyclovir 400 mg PO BID #42 tablet 06/29/21 07/03/21 Rx Fluconazole [Diflucan] 100 mg PO DAILY #21 tab 06/29/21 07/03/21 Rx Levofloxacin [Levaquin] 500 mg PO DAILY 1 Days #21 tab 06/29/21 07/03/21 Rx Ondansetron [Zofran] 8 mg PO Q6HR PRN #45 tab 06/29/21 07/03/21 Rx Allergies Allergy/AdvReac Type Severity Reaction Status Date / Time No Known Allergies Allergy Verified 07/03/21 15:39 Physical Exam Vitals: Vital Signs Temp Pulse Resp BP Pulse Ox 07/21/21 04:00 98.4 F 78 24 104/65 92 L 07/21/21 03:30 76 18 104/59 92 L 07/21/21 03:00 74 19 105/60 92 L 07/21/21 02:30 76 22 101/58 91 L 07/21/21 02:00 77 23 105/66 94 L 07/21/21 01:30 73 20 97/62 94 L 07/21/21 01:00 77 17 98/56 92 L 07/21/21 00:30 75 16 101/63 93 L 07/21/21 00:00 98.7 F 73 20 104/61 92 L 07/20/21 23:30 77 23 107/60 93 L 07/20/21 23:00 75 16 93/55 92 L 07/20/21 22:30 82 17 103/59 91 L 07/20/21 22:00 87 21 105/66 93 L 07/20/21 21:30 86 16 108/69 97 07/20/21 21:15 96 07/20/21 21:02 92 07/20/21 21:00 89 32 H 90/67 94 L 07/20/21 20:30 128 H 22 99/66 97 07/20/21 20:00 98.5 F 141 H 19 96/76 98 07/20/21 19:30 138 H 19 98 07/20/21 19:00 125 H 20 118/81 94 L 07/20/21 18:30 144 H 22 95 07/20/21 18:00 160 H 21 116/99 95 07/20/21 17:30 97 17 127/71 94 L 07/20/21 17:09 95 07/20/21 17:00 98 18 128/73 97 07/20/21 16:59 97 07/20/21 16:00 104 H 27 H 128/73 95 07/20/21 15:00 101 H 24 97 07/20/21 14:00 105 H 15 97 07/20/21 13:00 103 H 36 H 95 07/20/21 12:00 105 H 22 96 07/20/21 11:34 101 H 07/20/21 11:13 99 07/20/21 11:00 98 23 91 L 07/20/21 10:00 103 H 27 H 93 L 07/20/21 09:00 98 24 95 07/20/21 08:17 99 07/20/21 08:00 100 21 93 L 07/20/21 07:59 94 07/20/21 07:00 101 H 24 94 L 07/20/21 06:00 101 H 25 H 95 Intake and Output 07/20/21 07/20/21 07/21/21 14:59 22:59 06:59 Intake Total 729 559 568 Output Total 800 635 250 Balance -71 -76 318 Intake: IV 729 559 568 0.9 carriers 80 60 Acyclovir Sodium 500 mg 100 100 In Sodium Chloride 0.9% 100 ml @ 100 mls/hr IVPB Q8H ANJEL Rx#:[id number] Cefepime 2 gm In Sodium 100 Chloride 0.9% 100 ml @ 25 mls/hr IVPB Q12HR ANJEL Rx #:[id number] D5-0.45% NaCl with KCl 525 375 450 30Meq/l 1,000 ml @ 75 mls /hr IV .[id number] ANJEL Rx#: [id number] arterial line 24 24 18 Output: Urine 800 635 250 Other: Voiding Method Indwelling Catheter Indwelling Catheter Indwelling Catheter # Bowel Movements 1 ABP, PAP, CO, CI - Last 8 Hours Arterial Blood Pressure 135/72 Arterial Blood Pressure 108/62 Arterial Blood Pressure 111/73 Note that I did not physically touch patient during my exam today. Skin: Good color, texture, turgor. General: Medium build and comfortable appearance. Head: Normocephalic, atraumatic. Eyes: Symmetric. Pupils equal round. Ears: Symmetric. Hearing within normal limits. Mouth: Clear. Neck: Supple. Carotid without bruit. Cardiac: Regular rate and rhythm. Lungs: Wearing CPAP this a.m. Chest symmetric in breathing comfortably. Abdomen: Soft active nontender. Extremities: Normal tone. Neurological: Mental status: Alert, cooperative, pleasant. Cranial nerves: Symmetric facial tone and trapezius. Motor: Cane actively elevate all 4 limbs but it appears at best antigravity. Sensation: Intact throughout. DTRs: Symmetric and equal throughout. Mobility: Did not attempt to sit or stand this early a.m. Results CBC & Chem 7: 07/20/21 18:12 07/20/21 18:12 Labs: Abnormal Lab Results - Last 24 Hours (Table) 07/20/21 07/20/21 07/20/21 Range/Units 04:50 04:50 17:27 WBC 2.5 L (3.8-10.6) k/uL RBC 3.05 L (3.80-5.40) m/uL Hgb 9.1 L (11.4-16.0) gm/dL Hct 28.0 L (34.0-46.0) % Lymphocytes # 0.2 L (1.0-4.8) k/uL ABG pH (7.35-7.45) ABG HCO3 (21-25) mmol/L ABG Total CO2 (19-24) mmol/L ABG O2 Saturation (94-97) % Sodium 148 H (137-145) mmol/L Chloride 110 H (98-107) mmol/L Carbon Dioxide 35 H (22-30) mmol/L Glucose 126 H (74-99) mg/dL POC Glucose (mg/dL) 139 H (75-99) mg/dL Calcium 8.2 L (8.4-10.2) mg/dL AST 46 H (14-36) U/L Total Protein 5.2 L (6.3-8.2) g/dL Albumin 2.4 L (3.5-5.0) g/dL Procalcitonin (0.02-0.09) ng/mL 07/20/21 07/20/21 07/20/21 Range/Units 18:12 18:12 18:12 WBC 2.4 L (3.8-10.6) k/uL RBC 2.90 L (3.80-5.40) m/uL Hgb 8.7 L (11.4-16.0) gm/dL Hct 26.9 L (34.0-46.0) % Lymphocytes # 0.1 L (1.0-4.8) k/uL ABG pH (7.35-7.45) ABG HCO3 (21-25) mmol/L ABG Total CO2 (19-24) mmol/L ABG O2 Saturation (94-97) % Sodium 146 H (137-145) mmol/L Chloride 109 H (98-107) mmol/L Carbon Dioxide 34 H (22-30) mmol/L Glucose 148 H (74-99) mg/dL POC Glucose (mg/dL) (75-99) mg/dL Calcium 8.2 L (8.4-10.2) mg/dL AST 51 H (14-36) U/L Total Protein 5.4 L (6.3-8.2) g/dL Albumin 2.5 L (3.5-5.0) g/dL Procalcitonin 0.50 H (0.02-0.09) ng/mL 07/20/21 07/21/21 Range/Units 18:21 00:09 WBC (3.8-10.6) k/uL RBC (3.80-5.40) m/uL Hgb (11.4-16.0) gm/dL Hct (34.0-46.0) % Lymphocytes # (1.0-4.8) k/uL ABG pH 7.49 H (7.35-7.45) ABG HCO3 34 H (21-25) mmol/L ABG Total CO2 35 H (19-24) mmol/L ABG O2 Saturation 97.3 H (94-97) % Sodium (137-145) mmol/L Chloride (98-107) mmol/L Carbon Dioxide (22-30) mmol/L Glucose (74-99) mg/dL POC Glucose (mg/dL) 176 H (75-99) mg/dL Calcium (8.4-10.2) mg/dL AST (14-36) U/L Total Protein (6.3-8.2) g/dL Albumin (3.5-5.0) g/dL Procalcitonin (0.02-0.09) ng/mL Microbiology - Last 24 Hours (Table) 07/19/21 09:30 Gram Stain - Preliminary Bronchial Washings - Random Bronchial Washings Culture - Preliminary Assessment and Plan (1) AML (acute myeloid leukemia) Current Visit: Yes Status: Acute Priority: High Code(s): C92.00 - ACUTE MYELOBLASTIC LEUKEMIA, NOT HAVING ACHIEVED REMISSION SNOMED Code(s): 65863412 (2) Acute respiratory insufficiency Current Visit: Yes Status: Acute Code(s): R06.89 - OTHER ABNORMALITIES OF BREATHING SNOMED Code(s): 480582082 (3) Hospital-acquired pneumonia Current Visit: Yes Status: Acute Code(s): J18.9 - PNEUMONIA, UNSPECIFIED ORGANISM; Y95 - NOSOCOMIAL CONDITION SNOMED Code(s): 025574234 Plan: Impression: 1. Medical debility. 2. Hospital-acquired pneumonia with acute respiratory failure. 3. AML with active chemotherapy. Immunocompromise. 4. Osteoarthritis. Comments and plan: At this time PT and OT are ongoing and patient currently two- person assist. Patient has further restriction of very clean handwashing for personal contact. This may present challenge for any possible inpatient rehab.
[2021-07-21 06:47] LABS: WBC 2.6 k/uL (3.8-10.6)
[2021-07-21 06:48] LABS: Glucose,Whole Blood 175 mg/dL (75-99)
[2021-07-21 06:48] LABS: Basophils % (A) 0 %; Eosinophils % (A) 1 %; HCT 27.7 % (34.0-46.0); HGB 9.1 gm/dL (11.4-16.0); Lymphocytes # (A) 0.1 k/uL (1.0-4.8); Lymphocytes % (A) 5 %; MCH 30.4 pg (25.0-35.0); MCHC 32.9 g/dL (31.0-37.0); MCV 92.6 fL (80.0-100.0); Mean Platelet Volume 9.6; Monocytes # (A) 0.1 k/uL (0-1.0); Monocytes % (A) 4 %; Neutrophils # (A) 2.3 k/uL (1.3-7.7); Neutrophils % (A) 90 %; Platelet Count 279 k/uL (150-450); RBC 2.99 m/uL (3.80-5.40); RDW 15.2 % (11.5-15.5)
[2021-07-21 06:50] LABS: Albumin 2.4 g/dL (3.5-5.0); Calcium 8.2 mg/dL (8.4-10.2); Potassium 3.8 mmol/L (3.5-5.1); Total Bilirubin 0.8 mg/dL (0.2-1.3); Total Protein 5.3 g/dL (6.3-8.2)
[2021-07-21] MEDS: ACYCLOVIR SODIUM 500 MG in SODIUM CHLORIDE 0.9% 100 ML IVPB SCH ×3 (07:01→21:11)
[2021-07-21] MEDS: ALBUTEROL NEBULIZED 2.5 MG/3 ML INHALATION SCH ×4 (07:18→20:48)
--- NOTE | 2021-07-21 07:23 | XR ---
EXAMINATION TYPE: XR chest 1V portable DATE OF EXAM: 07/21/2021 COMPARISON: Chest x-ray 07/20/2021 HISTORY: Pneumonia TECHNIQUE: Single frontal view of the chest is obtained. FINDINGS: Right-sided PICC line shows the distal tip overlying superior vena cava. Cardiac mediastin al silhouette is unchanged. Patchy density within the lungs persists. No evident pneumothorax, diffic ult to exclude small pleural effusions, there is blunting the costophrenic angles. There are overlyin g artifacts. IMPRESSION: There may be some interval improvement in volume status, aeration
[2021-07-21] MEDS: ZINC SULFATE 220 MG CAP PO SCH (09:11)
[2021-07-21] MEDS: PARoxetine 10 MG TAB PO SCH (09:11)
[2021-07-21] MEDS: METOPROLOL TARTRATE 25 MG TAB PO SCH ×2 (09:11→21:11)
[2021-07-21] MEDS: SALT AND SODA MOUTHWASH 1,000 ML PO SCH ×4 (09:13→21:13)
[2021-07-21] MEDS: PANTOPRAZOLE 40 MG/10 ML VIAL IV SCH (09:17)
[2021-07-21] MEDS: CHOLESTYRAMINE (WITH SUGAR) 4 GM PACKET PO SCH ×2 (09:28→18:22)
[2021-07-21] MEDS ORDERED: ENOXAPARIN 80 MG/0.8 ML SYRINGE SQ SCH (11:15)
[2021-07-21 11:35] LABS: Glucose,Whole Blood 192 mg/dL (75-99)
--- NOTE | 2021-07-21 11:45 | P.PN ---
Subjective Progress Note Date: 07/21/21 Patient is sitting in bed resting comfortably today. She is on 6L NC and saturating well off of BIPAP. She had an episode of AFib with RVR yesterday and was started on amiodarone and metoprolol. CXR today appears to have improving pulmonary infiltrates. Pt started on steroids yesterday, solumedrol 60mg q6h. WBC count stable at 2.6, Hgb stable at 9.1, PLTs are 279. Vancomycin, Voriconazole, and levoquin were d/c'd. Metabolic derangements include hypernatremia, alkalosis, hyperchloremia. BS are between 170-190. All Cx are still negative. Objective - Vital Signs Vital signs: Vital Signs Temp 97.9 F 07/21/21 08:00 Pulse 83 07/21/21 09:30 Resp 21 07/21/21 09:30 BP 104/61 07/21/21 09:30 Pulse Ox 94 L 07/21/21 09:30 Intake & Output 07/20/21 07/21/21 07/21/21 18:59 06:59 18:59 Intake Total 931 1081 178 Output Total 1100 700 40 Balance -169 381 138 Weight 86.7 kg 86.7 kg Intake: IV 931 1081 178 0.9 carriers 120 20 Acyclovir Sodium 500 mg 100 100 100 In Sodium Chloride 0.9% 100 ml @ 100 mls/hr IVPB Q8H ANJEL Rx#:[id number] Cefepime 2 gm In Sodium 100 Chloride 0.9% 100 ml @ 25 mls/hr IVPB Q12HR ANJEL Rx #:[id number] D5-0.45% NaCl with KCl 675 825 75 30Meq/l 1,000 ml @ 75 mls /hr IV .[id number] ANJEL Rx#: [id number] arterial line 36 36 3 Output: Urine 1100 700 40 Other: Voiding Method Indwelling Catheter Indwelling Catheter # Bowel Movements 1 1 ABP, PAP, CO, CI - Last Documented Arterial Blood Pressure 135/72 - Exam Gen: awake, alert HEENT: normocephalic, atraumatic, good hearing acuity, moist mucous membranes Resp: breathing comfortably with no accessory muscle use, good air exchange, on NC. GI: soft, NTTP, ND : no SPT, no CVAT, putnam catheter is present MSK: no pitting edema, no clubbing - Labs CBC & Chem 7: 07/21/21 04:15 07/21/21 04:15 Labs: Abnormal Lab Results - Last 24 Hours (Table) 07/20/21 07/20/21 07/20/21 Range/Units 17:27 18:12 18:12 WBC 2.4 L (3.8-10.6) k/uL RBC 2.90 L (3.80-5.40) m/uL Hgb 8.7 L (11.4-16.0) gm/dL Hct 26.9 L (34.0-46.0) % Lymphocytes # 0.1 L (1.0-4.8) k/uL ABG pH (7.35-7.45) ABG HCO3 (21-25) mmol/L ABG Total CO2 (19-24) mmol/L ABG O2 Saturation (94-97) % Sodium 146 H (137-145) mmol/L Chloride 109 H (98-107) mmol/L Carbon Dioxide 34 H (22-30) mmol/L BUN (7-17) mg/dL Glucose 148 H (74-99) mg/dL POC Glucose (mg/dL) 139 H (75-99) mg/dL Calcium 8.2 L (8.4-10.2) mg/dL AST 51 H (14-36) U/L Total Protein 5.4 L (6.3-8.2) g/dL Albumin 2.5 L (3.5-5.0) g/dL Procalcitonin (0.02-0.09) ng/mL 07/20/21 07/20/21 07/21/21 Range/Units 18:12 18:21 00:09 WBC (3.8-10.6) k/uL RBC (3.80-5.40) m/uL Hgb (11.4-16.0) gm/dL Hct (34.0-46.0) % Lymphocytes # (1.0-4.8) k/uL ABG pH 7.49 H (7.35-7.45) ABG HCO3 34 H (21-25) mmol/L ABG Total CO2 35 H (19-24) mmol/L ABG O2 Saturation 97.3 H (94-97) % Sodium (137-145) mmol/L Chloride (98-107) mmol/L Carbon Dioxide (22-30) mmol/L BUN (7-17) mg/dL Glucose (74-99) mg/dL POC Glucose (mg/dL) 176 H (75-99) mg/dL Calcium (8.4-10.2) mg/dL AST (14-36) U/L Total Protein (6.3-8.2) g/dL Albumin (3.5-5.0) g/dL Procalcitonin 0.50 H (0.02-0.09) ng/mL 07/21/21 07/21/21 07/21/21 Range/Units 04:15 04:15 06:46 WBC 2.6 L (3.8-10.6) k/uL RBC 2.99 L (3.80-5.40) m/uL Hgb 9.1 L (11.4-16.0) gm/dL Hct 27.7 L (34.0-46.0) % Lymphocytes # 0.1 L (1.0-4.8) k/uL ABG pH (7.35-7.45) ABG HCO3 (21-25) mmol/L ABG Total CO2 (19-24) mmol/L ABG O2 Saturation (94-97) % Sodium 147 H (137-145) mmol/L Chloride 110 H (98-107) mmol/L Carbon Dioxide 33 H (22-30) mmol/L BUN 20 H (7-17) mg/dL Glucose 157 H (74-99) mg/dL POC Glucose (mg/dL) 175 H (75-99) mg/dL Calcium 8.2 L (8.4-10.2) mg/dL AST 39 H (14-36) U/L Total Protein 5.3 L (6.3-8.2) g/dL Albumin 2.4 L (3.5-5.0) g/dL Procalcitonin (0.02-0.09) ng/mL Microbiology - Last 24 Hours (Table) 07/19/21 09:30 Gram Stain - Preliminary Bronchial Washings - Random Bronchial Washings Culture - Preliminary Assessment and Plan Assessment: Neutropenic fevers Acute myelogenous leukemia Pancytopenia, chemo induced Pneumonia Acute hypoxic respiratory failure, vent dependent ARDS Diarrhea Sepsis without septic shock - WBC and PLT increasing as of 07/16 - Covid negative, legionella urine Ag negative, Aspergillus IgE negative - 1, 3 - beta- D- glucan is negative - Viral studies negative. - all cultures negative to date. - PCP stain is negative - bronch 07/11 with cultures negative to date. - bronch 07/19 with cultures pending - ID, Pulm, Heme/onc recs appreciated - Continue with cefepime, and acyclovir - D/c'd voriconazole on 07/20; vancomycin random level to be drawn 07/20 - cholestyramine A fib with RVR, currently in normal sinus rhythm -Cardizem drip was discontinued on 07/15. -Started enoxaparin 80mg SQ BID since blood counts have recovered - tele - echo essential within normal limits - consider cardio consult if echo is abnormal - patient is on metoprolol 25mg PO BID and amiodarone gtt Episode of tremors - EEG negative - CT head negative - neurology recs Moderate to severe MR Hypokalemia Hypomagnesemia Hypophosphatemia Hypocalcemia - replace as indicated Poor over all prognosis, however, improving this admission Awaiting direct AB stain results from [facility] [id number], not cu rrently available.
--- NOTE | 2021-07-21 17:05 | PN ---
PROGRESS NOTE DATE OF SERVICE: 07/21/2021 REASON FOR FOLLOWUP: Febrile neutropenia. INTERVAL HISTORY: The patient is currently afebrile. The patient is feeling better. She is breathing comfortably. The patient denies having any chest pain, shortness of breath. Occasional cough. No nausea, no vomiting. No abdominal pain or diarrhea. PHYSICAL EXAMINATION: Blood pressure is 119/75 with a pulse of 77, temperature 97.1. She is 96% on 6 L nasal cannula. GENERAL DESCRIPTION: General description is a middle-aged female up in the chair in no distress. RESPIRATORY SYSTEM: Unlabored breathing. Decreased breath sounds at the bases. No wheeze. HEART: S1, S2. Regular rate and rhythm. ABDOMEN: Soft. No tenderness. LABS: Hemoglobin 9.1, white count , BUN of 20, creatinine 0.86. DIAGNOSTIC IMPRESSION AND PLAN: Patient with febrile neutropenia with concern for pneumonia in this patient who bronchoscopy. Those have been negative. Patient is currently on empiric cefepime; may continue for a short course while monitoring her clinical course closely. Continue supportive care. MMODL / IJN: [id number] /
--- NOTE | 2021-07-21 17:07 | P.PN ---
Subjective Progress Note Date: 07/21/21 07/21/2021, the patient remains extubated. Much improved compared to yesterday. She is currently off the BiPAP and currently she is on oxygen at 6 L per minute nasal cannula. Not having any significant respiratory distress. She is communicating. No fever or chills. Repeat chest x-ray from today showed some interval improvement of the bilateral pulmonary infiltrates and the patient seems to be recovering. The patient also is back into normal sinus rhythm. Yesterday, she had a bout of atrial fibrillation with rapid ventricular response. She was given amiodarone bolus and then loading and subsequently she converted back into normal sinus rhythm. The patient remains hemodynamically stable. The patient remains in sinus rhythm for now. The patient remains on metoprolol 25 mg by mouth twice a day. Anticoagulation was restarted the patient was found to recover from her underlying thrombocytopenia. The patient's currently is on Lovenox 80 mg subcu every 12 hours. Antibiotic coverage remains a combination of cefepime and acyclovir. IV fluids are in the form of D5 half-normal saline at the rate of 75 mL an hour. Communicating well. Hemodynamically stable. No other new complaints otherwise for now. All of the cultures of been negative. The repeated bronchial alveolar lavage was also negative. Objective - Vital Signs Vital signs: Vital Signs Temp 97.1 F L 07/21/21 12:00 Pulse 82 07/21/21 16:00 Resp 23 07/21/21 16:00 BP 115/66 07/21/21 16:00 Pulse Ox 91 L 07/21/21 16:00 Intake & Output 07/20/21 07/21/21 07/21/21 18:59 06:59 18:59 Intake Total 931 1081 1774.282 Output Total 1100 700 265 Balance -937 443 6106.282 Weight 86.7 kg 86.7 kg Intake: IV 931 1081 984 0.9 carriers 120 20 60 Acyclovir Sodium 500 mg 100 100 200 In Sodium Chloride 0.9% 100 ml @ 100 mls/hr IVPB Q8H [facility] Rx#:[id number] Cefepime 2 gm In Sodium 100 100 Chloride 0.9% 100 ml @ 25 mls/hr IVPB Q12HR [facility] Rx #:[id number] D5-0.45% NaCl with KCl 675 825 600 30Meq/l 1,000 ml @ 75 mls /hr IV .[id number] [facility] Rx#: [id number] arterial line 36 36 24 Intake, IV Titration 190.282 Amount Amiodarone 450 mg In 190.282 Dextrose 5% in Water 250 ml @ 0.5 MG/MIN 16.667 mls/hr IV .Q15H [facility] Rx#: [id number] Oral 600 Output: Urine 1100 700 265 Other: Voiding Method Indwelling Catheter Indwelling Catheter Indwelling Catheter # Bowel Movements 1 1 ABP, PAP, CO, CI - Last Documented Arterial Blood Pressure 135/72 - Exam Gen. appearance the patient is calm and comfortable sitting up on a chair on oxygen at 6 L per minute nasal cannula Head exam was generally normal. There was no scleral icterus or corneal arcus. Mucous membranes were moist. Neck was supple and without jugular venous distension, thyromegaly, or carotid bruits. Carotids were easily palpable bilaterally. There was no adenopathy. Lungs sounds are diminished and there are diffuse rhonchi heard throughout the lung his bilaterally. Otherwise the breath sounds are equal for now. No significant wheezes. Cardiac exam revealed the PMI to be normally situated and sized. The rhythm was regular and no extrasystoles were noted during several minutes of auscultation. The first and second heart sounds were normal and physiologic splitting of the second heart sound was noted. There were no murmurs, rubs, clicks, or gallops. Abdominal exam revealed normal bowel sounds. The abdomen was soft, non-tender, and without masses, organomegaly, or appreciable enlargement of the abdominal aorta. Examination of the extremities revealed easily palpable radial, femoral and pedal pulses. There was no cyanosis, clubbing or edema. Examination of the skin revealed no evidence of significant rashes, suspicious appearing nevi or other concerning lesions. The patient has petechia in the lower extremities bilaterally related to underlying thrombocytopenia. Few areas of bruising, not extensive. The patient has increased edema in lower extremities bilaterally. Neurologically, the patient is awake and alert and moving all 4 extremities without limitation. No significant sedation for now.. No focal neurological deficits. - Labs CBC & Chem 7: 07/21/21 04:15 07/21/21 04:15 Labs: Abnormal Lab Results - Last 24 Hours (Table) 07/20/21 07/20/21 07/20/21 Range/Units 17:27 18:12 18:12 WBC 2.4 L (3.8-10.6) k/uL RBC 2.90 L (3.80-5.40) m/uL Hgb 8.7 L (11.4-16.0) gm/dL Hct 26.9 L (34.0-46.0) % Lymphocytes # 0.1 L (1.0-4.8) k/uL ABG pH (7.35-7.45) ABG HCO3 (21-25) mmol/L ABG Total CO2 (19-24) mmol/L ABG O2 Saturation (94-97) % Sodium 146 H (137-145) mmol/L Chloride 109 H (98-107) mmol/L Carbon Dioxide 34 H (22-30) mmol/L BUN (7-17) mg/dL Glucose 148 H (74-99) mg/dL POC Glucose (mg/dL) 139 H (75-99) mg/dL Calcium 8.2 L (8.4-10.2) mg/dL AST 51 H (14-36) U/L Total Protein 5.4 L (6.3-8.2) g/dL Albumin 2.5 L (3.5-5.0) g/dL Procalcitonin (0.02-0.09) ng/mL 07/20/21 07/20/21 07/21/21 Range/Units 18:12 18:21 00:09 WBC (3.8-10.6) k/uL RBC (3.80-5.40) m/uL Hgb (11.4-16.0) gm/dL Hct (34.0-46.0) % Lymphocytes # (1.0-4.8) k/uL ABG pH 7.49 H (7.35-7.45) ABG HCO3 34 H (21-25) mmol/L ABG Total CO2 35 H (19-24) mmol/L ABG O2 Saturation 97.3 H (94-97) % Sodium (137-145) mmol/L Chloride (98-107) mmol/L Carbon Dioxide (22-30) mmol/L BUN (7-17) mg/dL Glucose (74-99) mg/dL POC Glucose (mg/dL) 176 H (75-99) mg/dL Calcium (8.4-10.2) mg/dL AST (14-36) U/L Total Protein (6.3-8.2) g/dL Albumin (3.5-5.0) g/dL Procalcitonin 0.50 H (0.02-0.09) ng/mL 07/21/21 07/21/21 07/21/21 Range/Units 04:15 04:15 06:46 WBC 2.6 L (3.8-10.6) k/uL RBC 2.99 L (3.80-5.40) m/uL Hgb 9.1 L (11.4-16.0) gm/dL Hct 27.7 L (34.0-46.0) % Lymphocytes # 0.1 L (1.0-4.8) k/uL ABG pH (7.35-7.45) ABG HCO3 (21-25) mmol/L ABG Total CO2 (19-24) mmol/L ABG O2 Saturation (94-97) % Sodium 147 H (137-145) mmol/L Chloride 110 H (98-107) mmol/L Carbon Dioxide 33 H (22-30) mmol/L BUN 20 H (7-17) mg/dL Glucose 157 H (74-99) mg/dL POC Glucose (mg/dL) 175 H (75-99) mg/dL Calcium 8.2 L (8.4-10.2) mg/dL AST 39 H (14-36) U/L Total Protein 5.3 L (6.3-8.2) g/dL Albumin 2.4 L (3.5-5.0) g/dL Procalcitonin (0.02-0.09) ng/mL 07/21/21 Range/Units 11:33 WBC (3.8-10.6) k/uL RBC (3.80-5.40) m/uL Hgb (11.4-16.0) gm/dL Hct (34.0-46.0) % Lymphocytes # (1.0-4.8) k/uL ABG pH (7.35-7.45) ABG HCO3 (21-25) mmol/L ABG Total CO2 (19-24) mmol/L ABG O2 Saturation (94-97) % Sodium (137-145) mmol/L Chloride (98-107) mmol/L Carbon Dioxide (22-30) mmol/L BUN (7-17) mg/dL Glucose (74-99) mg/dL POC Glucose (mg/dL) 192 H (75-99) mg/dL Calcium (8.4-10.2) mg/dL AST (14-36) U/L Total Protein (6.3-8.2) g/dL Albumin (3.5-5.0) g/dL Procalcitonin (0.02-0.09) ng/mL Microbiology - Last 24 Hours (Table) 07/11/21 15:00 Fungal Culture - Preliminary Bronchial Washings - Random 07/19/21 09:30 Gram Stain - Final Bronchial Washings - Random Bronchial Washings Culture - Final Assessment and Plan Plan: 1 acute bilateral pneumonia with rapid progression of bilateral pulmonary infiltrates and the patient currently has extensive bilateral airspace disease and coarse interstitial pulmonary infiltrates, consider opportunistic infections especially with her underlying immunosuppression. The bronchioloalveolar lavage has been negative thus far. PCP stain of been negative. Legionella urine antigen was negative. Lavage with viral screen of the bronchioloalveolar lavage has been negative. COVID 19 testing was negative. The patient's regular bacterial cultures and the fungal cultures are negative. She remains on broad- spectrum antibiotics. The patient had bronchoscopy 2. Cultures were all negative. The patient was extubated initially and she failed extubation she had to be intubated. She was ultimately extubated again on 07/19/2021. She was extubated to BiPAP. She was BiPAP dependent over the past 24 hours and currently she is doing much better and she is on 6 L about 2 by nasal cannula. Oxidation is improved and the chest x-ray also continues to improve. She remains extubated for now. 2 acute hypoxic respiratory failure secondary to above 3 shortness of breath secondary to but not limited to above mentioned pneumonia. 4 acute myeloid leukemia post induction chemotherapy, remains leukopenic, the white cell count is gradually improving, white cell count is up to 2.9 5 pancytopenia, with early signs of recovery of the bone marrow post induction chemotherapy in a patient with AML. Note that the patient stated count has normalized. Hemoglobin is also up to 9.1. 6 Afebrile to having episodic fever on multiple occasions last week. 7 electrolytes disturbance, being managed and replaced 8 diarrhea, stool for C. diff has been negative, no diarrhea 9 paroxysmal atrial fibrillation, current rhythm is sinus and the patient will be taken off the Cardizem drip. The current rhythm is sinus Plan Discontinue the amiodarone drip Continue metoprolol Agree with Lovenox Antibiotics will be continued in the form of cefepime and acyclovir Rest of the cultures were all negative Chest x-rays improving Echocardiogram to be completed and the patient is a preserved LV function with an ejection fraction of 50-55%. Condition remains critical and the patient has made significant amount of progress over the past 24 hours per she is currently off BiPAP. Diet was provided and the patient is able to swallow appropriately Continue D5 half-normal saline at the rate of 100 mL an hour Monitor electrolytes including sodium level We'll continue to follow. . was updated. Case was also discussed with hematology oncology.
[2021-07-21 18:40] LABS: Glucose,Whole Blood 200 mg/dL (75-99)
--- NOTE | 2021-07-21 19:50 | P.PN ---
Subjective Progress Note Date: 07/21/21 Principal diagnosis: febrile neutropenia CBC is recovering, she is sitting up in chair, oxygenating well on nasal canula, at bedside. Chest xray with some minimal improvements bilateral infiltrates per pulmonary. Heart Rhythm Normal sinus. Afebrile. Objective - Vital Signs Vital signs: Vital Signs Temp 97.1 F L 07/21/21 12:00 Pulse 79 07/21/21 12:00 Resp 26 H 07/21/21 12:00 BP 112/66 07/21/21 12:00 Pulse Ox 95 07/21/21 12:00 Intake & Output 07/20/21 07/21/21 07/21/21 18:59 06:59 18:59 Intake Total 931 1081 1378.282 Output Total 1100 700 205 Balance -669 343 1605.282 Weight 86.7 kg 86.7 kg Intake: IV 931 1081 708 0.9 carriers 120 20 40 Acyclovir Sodium 500 mg 100 100 100 In Sodium Chloride 0.9% 100 ml @ 100 mls/hr IVPB Q8H [facility] Rx#:[id number] Cefepime 2 gm In Sodium 100 100 Chloride 0.9% 100 ml @ 25 mls/hr IVPB Q12HR [facility] Rx #:[id number] D5-0.45% NaCl with KCl 675 825 450 30Meq/l 1,000 ml @ 75 mls /hr IV .[id number] [facility] Rx#: [id number] arterial line 36 36 18 Intake, IV Titration 190.282 Amount Amiodarone 450 mg In 190.282 Dextrose 5% in Water 250 ml @ 0.5 MG/MIN 16.667 mls/hr IV .Q15H [facility] Rx#: [id number] Oral 480 Output: Urine 1100 700 205 Other: Voiding Method Indwelling Catheter Indwelling Catheter Indwelling Catheter # Bowel Movements 1 1 ABP, PAP, CO, CI - Last Documented Arterial Blood Pressure 135/72 - Exam -- Constitutional General appearance: Present: average body habitus, cooperative, no acute distress - EENT Eyes: Present: anicteric sclerae, EOMI ENT: Present: hearing grossly normal - Respiratory Respiratory: bilateral: bases diminished - Cardiovascular Rhythm: regular Heart sounds: normal: S1, S2 Abnormal Heart Sounds: Absent: systolic murmur, diastolic murmur, rub, S3 Gallop, S4 Gallop, click, other - Peripheral edema leg Peripheral Edema: bilateral: None - Gastrointestinal General gastrointestinal: Present: normal bowel sounds, soft. A - Integumentary Integumentary: Present: normal turgor - Musculoskeletal Musculoskeletal: Present: generalized weakness, strength equal bilaterally - Psychiatric Psychiatric: Present: A&O x's 3, appropriate affect - Labs CBC & Chem 7: 07/21/21 04:15 07/21/21 04:15 Labs: Abnormal Lab Results - Last 24 Hours (Table) 07/20/21 07/20/21 07/20/21 Range/Units 17:27 18:12 18:12 WBC 2.4 L (3.8-10.6) k/uL RBC 2.90 L (3.80-5.40) m/uL Hgb 8.7 L (11.4-16.0) gm/dL Hct 26.9 L (34.0-46.0) % Lymphocytes # 0.1 L (1.0-4.8) k/uL ABG pH (7.35-7.45) ABG HCO3 (21-25) mmol/L ABG Total CO2 (19-24) mmol/L ABG O2 Saturation (94-97) % Sodium 146 H (137-145) mmol/L Chloride 109 H (98-107) mmol/L Carbon Dioxide 34 H (22-30) mmol/L BUN (7-17) mg/dL Glucose 148 H (74-99) mg/dL POC Glucose (mg/dL) 139 H (75-99) mg/dL Calcium 8.2 L (8.4-10.2) mg/dL AST 51 H (14-36) U/L Total Protein 5.4 L (6.3-8.2) g/dL Albumin 2.5 L (3.5-5.0) g/dL Procalcitonin (0.02-0.09) ng/mL 07/20/21 07/20/21 07/21/21 Range/Units 18:12 18:21 00:09 WBC (3.8-10.6) k/uL RBC (3.80-5.40) m/uL Hgb (11.4-16.0) gm/dL Hct (34.0-46.0) % Lymphocytes # (1.0-4.8) k/uL ABG pH 7.49 H (7.35-7.45) ABG HCO3 34 H (21-25) mmol/L ABG Total CO2 35 H (19-24) mmol/L ABG O2 Saturation 97.3 H (94-97) % Sodium (137-145) mmol/L Chloride (98-107) mmol/L Carbon Dioxide (22-30) mmol/L BUN (7-17) mg/dL Glucose (74-99) mg/dL POC Glucose (mg/dL) 176 H (75-99) mg/dL Calcium (8.4-10.2) mg/dL AST (14-36) U/L Total Protein (6.3-8.2) g/dL Albumin (3.5-5.0) g/dL Procalcitonin 0.50 H (0.02-0.09) ng/mL 07/21/21 07/21/21 07/21/21 Range/Units 04:15 04:15 06:46 WBC 2.6 L (3.8-10.6) k/uL RBC 2.99 L (3.80-5.40) m/uL Hgb 9.1 L (11.4-16.0) gm/dL Hct 27.7 L (34.0-46.0) % Lymphocytes # 0.1 L (1.0-4.8) k/uL ABG pH (7.35-7.45) ABG HCO3 (21-25) mmol/L ABG Total CO2 (19-24) mmol/L ABG O2 Saturation (94-97) % Sodium 147 H (137-145) mmol/L Chloride 110 H (98-107) mmol/L Carbon Dioxide 33 H (22-30) mmol/L BUN 20 H (7-17) mg/dL Glucose 157 H (74-99) mg/dL POC Glucose (mg/dL) 175 H (75-99) mg/dL Calcium 8.2 L (8.4-10.2) mg/dL AST 39 H (14-36) U/L Total Protein 5.3 L (6.3-8.2) g/dL Albumin 2.4 L (3.5-5.0) g/dL Procalcitonin (0.02-0.09) ng/mL 07/21/21 Range/Units 11:33 WBC (3.8-10.6) k/uL RBC (3.80-5.40) m/uL Hgb (11.4-16.0) gm/dL Hct (34.0-46.0) % Lymphocytes # (1.0-4.8) k/uL ABG pH (7.35-7.45) ABG HCO3 (21-25) mmol/L ABG Total CO2 (19-24) mmol/L ABG O2 Saturation (94-97) % Sodium (137-145) mmol/L Chloride (98-107) mmol/L Carbon Dioxide (22-30) mmol/L BUN (7-17) mg/dL Glucose (74-99) mg/dL POC Glucose (mg/dL) 192 H (75-99) mg/dL Calcium (8.4-10.2) mg/dL AST (14-36) U/L Total Protein (6.3-8.2) g/dL Albumin (3.5-5.0) g/dL Procalcitonin (0.02-0.09) ng/mL Microbiology - Last 24 Hours (Table) 07/19/21 09:30 Gram Stain - Preliminary Bronchial Washings - Random Bronchial Washings Culture - Preliminary Assessment and Plan (1) Neutropenic fever Current Visit: Yes Status: Acute Priority: High Code(s): D70.9 - NEUTROPENIA, UNSPECIFIED; R50.81 - FEVER PRESENTING WITH CONDITIONS CLASSIFIED ELSEWHERE SNOMED Code(s): 882568400 (2) AML (acute myeloid leukemia) Current Visit: Yes Status: Acute Priority: High Code(s): C92.00 - ACUTE MYELOBLASTIC LEUKEMIA, NOT HAVING ACHIEVED REMISSION SNOMED Code(s): 69796494 (3) Anemia Current Visit: No Status: Acute Priority: High Code(s): D64.9 - ANEMIA, UNSPECIFIED SNOMED Code(s): 223400446 (4) Thrombocytopenia Current Visit: No Status: Acute Priority: High Code(s): D69.6 - THROMBOCYTOPENIA, UNSPECIFIED SNOMED Code(s): 086478703 (5) Hypokalemia Current Visit: Yes Status: Acute Code(s): E87.6 - HYPOKALEMIA SNOMED Code(s): 15494651 (6) Hypomagnesemia Current Visit: Yes Status: Acute Code(s): E83.42 - HYPOMAGNESEMIA SNOMED Code(s): 693364190 (7) Hypophosphatemia Current Visit: Yes Status: Acute Code(s): E83.39 - OTHER DISORDERS OF PHOSPHORUS METABOLISM SNOMED Code(s): 7787157 (8) Hypocalcemia Current Visit: Yes Status: Acute Code(s): E83.51 - HYPOCALCEMIA SNOMED Code(s): 9252447 (9) Acute respiratory insufficiency Current Visit: Yes Status: Acute Code(s): R06.89 - OTHER ABNORMALITIES OF BREATHING SNOMED Code(s): 348784104 (10) Hospital-acquired pneumonia Current Visit: Yes Status: Acute Code(s): J18.9 - PNEUMONIA, UNSPECIFIED ORGANISM; Y95 - NOSOCOMIAL CONDITION SNOMED Code(s): 524070652 (11) Hypotension Current Visit: Yes Status: Acute Code(s): I95.9 - HYPOTENSION, UNSPECIFIED SNOMED Code(s): 68938896 (12) Sepsis Current Visit: Yes Status: Acute Code(s): A41.9 - SEPSIS, UNSPECIFIED ORGANISM SNOMED Code(s): 73427233 (13) Respiratory failure Current Visit: Yes Status: Acute Priority: High Code(s): J96.90 - RESPIRATORY FAILURE, UNSP, UNSP W HYPOXIA OR HYPERCAPNIA SNOMED Code(s): 052158286 (14) Sepsis Current Visit: No Status: Acute Priority: High Code(s): A41.9 - SEPSIS, UNSPECIFIED ORGANISM SNOMED Code(s): 78400686 Plan: Assessment and Recommendations: Febrile Neutropenia: Resolved Septic Shock: Resolving Acute Respiratory Failure: Resolving - Transferred on 07/11/21 - Bronchoscopy 07.11.21 - Extubated 07.19.21 Acute Myeloid Leukemia: AML: - Status Post induction with 7+3, 06/23/21 - We are on Day 19. - Started on Rydapt 50mg po BID x14 days. Started on 07/03/21. HELD on 07/11/21 unable to determine etiology of fever (pneumonia versus other) therefore Rydapt was held and patient is now recovering. This has not restarted - Bone Marrow Biopsy, likely Saturday07.24.21. - If bone marrow shows remission plan for evaluation at [facility] transplant center for preparing for SCT, in the interim will likely continue on consolidation. - Re-induction will be planned if remission has not been achieved *Will await decision of restarting Rydapt by primary research recruiter. PLAN: - Continue supportive care and recovery status post induction - Await Bone Marrow Biopsy for achieved remission Discussed with Pulmonary team and discussed patients son upcoming wedding on .
[2021-07-22 00:18] LABS: Glucose,Whole Blood 201 mg/dL (75-99)
[2021-07-22] MEDS: INSULIN ASPART (NovoLOG) 100 UNIT/ML VIAL SQ SCH ×4 (00:29→18:48)
[2021-07-22] MEDS: CEFEPIME 2 GM in SODIUM CHLORIDE 0.9% 100 ML IVPB SCH ×2 (00:29→12:10)
[2021-07-22] MEDS: methylPREDNISolone SOD SUCCI 125 MG/2 ML VIAL IV SCH ×2 (00:29→06:52)
[2021-07-22 06:26] LABS: Glucose,Whole Blood 152 mg/dL (75-99)
[2021-07-22] MEDS: ACYCLOVIR SODIUM 500 MG in SODIUM CHLORIDE 0.9% 100 ML IVPB SCH ×3 (06:52→21:43)
[2021-07-22] MEDS: ALBUTEROL NEBULIZED 2.5 MG/3 ML INHALATION SCH ×4 (07:13→19:44)
--- NOTE | 2021-07-22 08:35 | P.PN ---
Subjective Progress Note Date: 07/22/212020, the patient remains extubated on 6 L of oxygen by nasal cannula. No chest x-rays available from today. Nevertheless, she is feeling great. She is sitting up on a chair. She is communicating. She has no significant respiratory distress. She is complaining of some increased edema lower extr emities bilaterally and obviously she is in positive fluid balance of 2.6 L. The patient's cardiac rhythm is still sinus. I do not think she is in need for therapeutic dose of Lovenox. Atrial fibrillation that she had was when she was in respiratory failure and she was intubated on a mechanical ventilator. Since then, the patient has remained in sinus rhythm and she has a normal echocardiogram. Awaiting the follow-up hematologic profile. She is tolerating diet. She has a Lopez catheter in place. She has a left radial arterial line. No other significant issues for now. Cultures of been all negative. She remains on cefepime and acyclovir. She was also given IV Solu-Medrol 48 hours ago and this can be switched to oral prednisone. Objective - Vital Signs Vital signs: Vital Signs Temp 98.0 F 07/22/21 04:00 Pulse 82 07/22/21 07:25 Resp 24 07/22/21 07:00 BP 114/60 07/22/21 07:00 Pulse Ox 93 L 07/22/21 07:00 Intake & Output 07/21/21 07/22/21 07/22/21 18:59 06:59 18:59 Intake Total 2486.282 1256 188 Output Total 385 665 50 Balance 2101.282 591 138 Weight 86.7 kg Intake: IV 1336 1256 188 0.9 carriers 100 120 10 Acyclovir Sodium 500 mg 200 100 100 In Sodium Chloride 0.9% 100 ml @ 100 mls/hr IVPB Q8H [facility] Rx#:[id number] Cefepime 2 gm In Sodium 100 Chloride 0.9% 100 ml @ 25 mls/hr IVPB Q12HR [facility] Rx #:[id number] Cefepime 2 gm In Sodium 100 Chloride 0.9% 100 ml @ 25 mls/hr IVPB Q8H [facility] Rx#: [id number] D5-0.45% NaCl with KCl 900 900 75 30Meq/l 1,000 ml @ 75 mls /hr IV .[id number] [facility] Rx#: [id number] arterial line 36 36 3 Intake, IV Titration 190.282 Amount Amiodarone 450 mg In 190.282 Dextrose 5% in Water 250 ml @ 0.5 MG/MIN 16.667 mls/hr IV .Q15H [facility] Rx#: [id number] Oral 960 Output: Urine 385 665 50 Other: Voiding Method Indwelling Catheter Indwelling Catheter # Bowel Movements 1 ABP, PAP, CO, CI - Last Documented Arterial Blood Pressure 149/85 - Exam Gen. appearance the patient is calm and comfortable sitting up on a chair on oxygen at 6 L per minute nasal cannula Head exam was generally normal. There was no scleral icterus or corneal arcus. Mucous membranes were moist. Neck was supple and without jugular venous distension, thyromegaly, or carotid bruits. Carotids were easily palpable bilaterally. There was no adenopathy. Lungs sounds are diminished and there are diffuse rhonchi heard throughout the lung his bilaterally. Otherwise the breath sounds are equal for now. No significant wheezes. Cardiac exam revealed the PMI to be normally situated and sized. The rhythm was regular and no extrasystoles were noted during several minutes of auscultation. The first and second heart sounds were normal and physiologic splitting of the second heart sound was noted. There were no murmurs, rubs, clicks, or gallops. Abdominal exam revealed normal bowel sounds. The abdomen was soft, non-tender, and without masses, organomegaly, or appreciable enlargement of the abdominal aorta. Examination of the extremities revealed easily palpable radial, femoral and pedal pulses. There was no cyanosis, clubbing or edema. Examination of the skin revealed no evidence of significant rashes, suspicious appearing nevi or other concerning lesions. The patient has petechia in the lower extremities bilaterally related to underlying thrombocytopenia. Few areas of bruising, not extensive. The patient has increased edema in lower extremities bilaterally. Neurologically, the patient is awake and alert and moving all 4 extremities without limitation. No significant sedation for now.. No focal neurological deficits. - Labs CBC & Chem 7: 07/21/21 04:15 07/21/21 04:15 Labs: Abnormal Lab Results - Last 24 Hours (Table) 07/21/21 07/21/21 07/22/21 Range/Units 11:33 18:32 00:17 POC Glucose (mg/dL) 192 H 200 H 201 H (75-99) mg/dL 07/22/21 Range/Units 06:25 POC Glucose (mg/dL) 152 H (75-99) mg/dL Microbiology - Last 24 Hours (Table) 07/11/21 15:00 Fungal Culture - Preliminary Bronchial Washings - Random 07/19/21 09:30 Gram Stain - Final Bronchial Washings - Random Bronchial Washings Culture - Final Assessment and Plan Plan: 1 acute bilateral pneumonia with rapid progression of bilateral pulmonary infiltrates and the patient currently has extensive bilateral airspace disease and coarse interstitial pulmonary infiltrates, consider opportunistic infections especially with her underlying immunosuppression. The bronchioloalveolar lavage has been negative thus far. PCP stain of been negative. Legionella urine antigen was negative. Lavage with viral screen of the bronchioloalveolar lavage has been negative. COVID 19 testing was negative. The patient's regular bacterial cultures and the fungal cultures are negative. She remains on broad- spectrum antibiotics. The patient had bronchoscopy 2. Cultures were all negative. The patient was extubated initially and she failed extubation she had to be intubated. She was ultimately extubated again on 07/19/2021. She was extubated to BiPAP. She is stable for now on oxygen at 6 L per minute nasal cannula. No chest x-rays available from today. She remains in intensive care unit. She is awake and alert and communicating. 2 acute hypoxic respiratory failure secondary to above, improving and the patient is currently on 6 L of oxygen by nasal cannula 3 shortness of breath secondary to but not limited to above mentioned pneumonia, improving hemoglobin without 4 acute myeloid leukemia post induction chemotherapy, remains leukopenic, the white cell count is gradually improving, white cell count is up to 2.9 5 pancytopenia, with early signs of recovery of the bone marrow post induction chemotherapy in a patient with AML. Note that the patient stated count has normalized. Hemoglobin is pending from today 6 Afebrile to having episodic fever on multiple occasions last week. 7 electrolytes disturbance, being managed and replaced 8 diarrhea, stool for C. diff has been negative, no diarrhea 9 paroxysmal atrial fibrillation, current rhythm is sinus and the patient will be taken off the Cardizem drip. The current rhythm is sinus Plan Discontinue the amiodarone drip Continue metoprolol Change Lovenox to 40 mg subcu once a day Antibiotic management per ID and the patient is on cefepime and acyclovir Rest of the cultures were all negative Chest x-rays improving Echocardiogram to be completed and the patient is a preserved LV function with an ejection fraction of 50-55%. Give the patient Lasix 40 mg IV push 1 Discontinue the Lopez catheter after having adequate diuresis post Lasix This continued IV Solu Medrol put the patient a prednisone burst taper starting with 40 mg of prednisone and this will be a quick taper Fluids to KVO. Monitor electrolytes including sodium level We'll continue to follow. was updated. Case was also discussed with hematology oncology. May transfer to oncology unit today.
[2021-07-22] MEDS ORDERED: FUROSEMIDE 10 MG/ML 4 ML VIAL IV STA (08:46)
[2021-07-22] MEDS ORDERED: ENOXAPARIN 40 MG/0.4 ML SYRINGE SQ SCH (09:00)
[2021-07-22 09:16] LABS: Basophils % (A) 0 %; Eosinophils % (A) 0 %; HCT 29.3 % (34.0-46.0); HGB 9.8 gm/dL (11.4-16.0); Lymphocytes # (A) 0.3 k/uL (1.0-4.8); Lymphocytes % (A) 4 %; MCH 30.4 pg (25.0-35.0); MCHC 33.5 g/dL (31.0-37.0); MCV 90.7 fL (80.0-100.0); Mean Platelet Volume 9.5; Monocytes # (A) 0.6 k/uL (0-1.0); Monocytes % (A) 9 %; Neutrophils # (A) 5.2 k/uL (1.3-7.7); Neutrophils % (A) 85 %; Platelet Count 474 k/uL (150-450); RBC 3.23 m/uL (3.80-5.40); WBC 6.1 k/uL (3.8-10.6)
[2021-07-22] MEDS: D5-0.45% NACL WITH KCL 30MEQ/L 1,000 ML IV SCH (09:18)
[2021-07-22] MEDS: PANTOPRAZOLE 40 MG TABLET PO SCH ×2 (09:22→16:39)
[2021-07-22] MEDS: ZINC SULFATE 220 MG CAP PO SCH (09:22)
[2021-07-22] MEDS: CHOLESTYRAMINE (WITH SUGAR) 4 GM PACKET PO SCH ×2 (09:22→18:48)
[2021-07-22] MEDS: METOPROLOL TARTRATE 25 MG TAB PO SCH ×2 (09:22→20:28)
[2021-07-22] MEDS: PARoxetine 10 MG TAB PO SCH (09:22)
[2021-07-22 09:33] LABS: ALT 13 U/L (4-34); AST 30 U/L (14-36); African American GFR (CKD) >90 (>60 ml/min/1.73 sqM); Albumin 2.6 g/dL (3.5-5.0); Alkaline Phosphatase 94 U/L (38-126); Anion Gap 5 mmol/L; Blood Urea Nitrogen 28 mg/dL (7-17); Calcium 8.1 mg/dL (8.4-10.2); Carbon Dioxide 28 mmol/L (22-30); Chloride 108 mmol/L (98-107); Glucose 157 mg/dL (74-99); Non-African American GFR(CKD) 89 (>60 ml/min/1.73 sqM); Sodium 141 mmol/L (137-145); Total Bilirubin 0.7 mg/dL (0.2-1.3); Total Protein 5.5 g/dL (6.3-8.2)
[2021-07-22] MEDS: predniSONE 20 MG TAB PO SCH (10:40)
[2021-07-22] MEDS ORDERED: AMIODARONE 360 MG in DEXTROSE 5% IN WATER 200 ML IV ONE ×2 (10:41)
[2021-07-22] MEDS ORDERED: DEXTROSE 5% IN WATER 100 ML with AMIODARONE 150 MG IV ONE (10:41)
[2021-07-22] MEDS: SALT AND SODA MOUTHWASH 1,000 ML PO SCH ×4 (10:41→21:26)
[2021-07-22] MEDS: APIXABAN 5 MG TAB PO SCH ×2 (11:04→20:28)
[2021-07-22 11:40] LABS: Glucose,Whole Blood 228 mg/dL (75-99)
--- NOTE | 2021-07-22 12:04 | P.PN ---
Subjective Progress Note Date: 07/22/21 Principal diagnosis: AML, subsequent neutropenic fever post induction chemo In follow-up today patient is on 6L High flow NC, at bedside. She states she is feeling pretty good. Eating and moving around a little. Objective - Vital Signs Vital signs: Vital Signs Temp 98.2 F 07/22/21 08:00 Pulse 82 07/22/21 11:26 Resp 20 07/22/21 10:00 BP 113/77 07/22/21 10:00 Pulse Ox 96 07/22/21 10:00 Intake & Output 07/21/21 07/22/21 07/22/21 18:59 06:59 18:59 Intake Total 2486.282 1256 188 Output Total 385 665 50 Balance 2101.282 591 138 Weight 86.7 kg Intake: IV 1336 1256 188 0.9 carriers 100 120 10 Acyclovir Sodium 500 mg 200 100 100 In Sodium Chloride 0.9% 100 ml @ 100 mls/hr IVPB Q8H [facility] Rx#:[id number] Cefepime 2 gm In Sodium 100 Chloride 0.9% 100 ml @ 25 mls/hr IVPB Q12HR [facility] Rx #:[id number] Cefepime 2 gm In Sodium 100 Chloride 0.9% 100 ml @ 25 mls/hr IVPB Q8H [facility] Rx#: [id number] D5-0.45% NaCl with KCl 900 900 75 30Meq/l 1,000 ml @ 75 mls /hr IV .[id number] [facility] Rx#: [id number] arterial line 36 36 3 Intake, IV Titration 190.282 Amount Amiodarone 450 mg In 190.282 Dextrose 5% in Water 250 ml @ 0.5 MG/MIN 16.667 mls/hr IV .Q15H [facility] Rx#: [id number] Oral 960 Output: Urine 385 665 50 Other: Voiding Method Indwelling Catheter Indwelling Catheter # Bowel Movements 1 ABP, PAP, CO, CI - Last Documented Arterial Blood Pressure 149/85 - Constitutional General appearance: Present: average body habitus, cooperative, no acute distress - EENT Eyes: Present: anicteric sclerae, EOMI ENT: Present: hearing grossly normal, normal oropharynx - Respiratory Respiratory: bilateral: CTA, rales (few scattered) - Cardiovascular Rhythm: regular Heart sounds: normal: S1, S2 Abnormal Heart Sounds: Absent: systolic murmur, diastolic murmur, rub, S3 Gallop, S4 Gallop, click, other - Peripheral edema foot Peripheral Edema: bilateral: 1+ - Gastrointestinal General gastrointestinal: Present: normal bowel sounds, soft - Neurologic Neurologic: Present: CNII-XII intact - Musculoskeletal Musculoskeletal: Present: generalized weakness, strength equal bilaterally - Psychiatric Psychiatric: Present: A&O x's 3, appropriate affect, intact judgment & insight - Labs CBC & Chem 7: 07/22/21 09:05 07/22/21 09:05 Labs: Abnormal Lab Results - Last 24 Hours (Table) 07/21/21 07/22/21 07/22/21 Range/Units 18:32 00:17 06:25 RBC (3.80-5.40) m/uL Hgb (11.4-16.0) gm/dL Hct (34.0-46.0) % Plt Count (150-450) k/uL Lymphocytes # (1.0-4.8) k/uL Chloride (98-107) mmol/L BUN (7-17) mg/dL Glucose (74-99) mg/dL POC Glucose (mg/dL) 200 H 201 H 152 H (75-99) mg/dL Calcium (8.4-10.2) mg/dL Total Protein (6.3-8.2) g/dL Albumin (3.5-5.0) g/dL 07/22/21 07/22/21 07/22/21 Range/Units 09:05 09:05 11:39 RBC 3.23 L (3.80-5.40) m/uL Hgb 9.8 L (11.4-16.0) gm/dL Hct 29.3 L (34.0-46.0) % Plt Count 474 H (150-450) k/uL Lymphocytes # 0.3 L (1.0-4.8) k/uL Chloride 108 H (98-107) mmol/L BUN 28 H (7-17) mg/dL Glucose 157 H (74-99) mg/dL POC Glucose (mg/dL) 228 H (75-99) mg/dL Calcium 8.1 L (8.4-10.2) mg/dL Total Protein 5.5 L (6.3-8.2) g/dL Albumin 2.6 L (3.5-5.0) g/dL Microbiology - Last 24 Hours (Table) 07/11/21 15:00 Fungal Culture - Preliminary Bronchial Washings - Random 07/19/21 09:30 Gram Stain - Final Bronchial Washings - Random Bronchial Washings Culture - Final Assessment and Plan (1) Neutropenic fever Current Visit: Yes Status: Resolved Priority: High Code(s): D70.9 - NEUTROPENIA, UNSPECIFIED; R50.81 - FEVER PRESENTING WITH CONDITIONS CLASSIFIED ELSEWHERE SNOMED Code(s): 339456847 (2) Pancytopenia due to antineoplastic chemotherapy Narrative/Plan: Hemoglobin stable, better. Platelets normal. WBC 6.1. No GCS F until patient has confirmed remission. Current Visit: Yes Status: Acute Priority: High Code(s): D61.810 - ANTINEOPLASTIC CHEMOTHERAPY INDUCED PANCYTOPENIA; T45.1X5A - ADVERSE EFFECT OF ANTINEOPLASTIC AND IMMUNOSUP DRUGS, INIT SNOMED Code(s): 093742921289663 (3) Respiratory failure Current Visit: Yes Status: Resolved Priority: High Code(s): J96.90 - RESPIRATORY FAILURE, UNSP, UNSP W HYPOXIA OR HYPERCAPNIA SNOMED Code(s): 408795311 (4) AML (acute myeloid leukemia) Narrative/Plan: Patient is status post induction chemotherapy. 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 This is been held due to patient's acute situation. Will not start this cycle. Pt is at completion of induction cycle. Bone marrow biopsy in the next week to evaluate if pt is in remission Current Visit: Yes Status: Acute Priority: High Code(s): C92.00 - ACUTE MYELOBLASTIC LEUKEMIA, NOT HAVING ACHIEVED REMISSION SNOMED Code(s): 96138947
--- NOTE | 2021-07-22 13:10 | P.PN ---
Subjective Progress Note Date: 07/22/21 Pt sitting in chair resting comfortably. On 6L NC. CXRs have showing improvement in infiltrates. AFib with RVR episode again overnight. Amiodarone re-started. Pressures are stable. Micro with no identified etiology. CBC shows improving WBC, Hgb, PLTs. Due for repeat BMBx early next week via heme/o nc to confirm remission. Ongoing cefepime, acyclovir. Putnam and A-line are in place - to be removed today. Objective - Vital Signs Vital signs: Vital Signs Temp 98.2 F 07/22/21 08:00 Pulse 82 07/22/21 11:26 Resp 20 07/22/21 10:00 BP 113/77 07/22/21 10:00 Pulse Ox 96 07/22/21 10:00 Intake & Output 07/21/21 07/22/21 07/22/21 18:59 06:59 18:59 Intake Total 2486.282 1256 188 Output Total 385 665 50 Balance 2101.282 591 138 Weight 86.7 kg Intake: IV 1336 1256 188 0.9 carriers 100 120 10 Acyclovir Sodium 500 mg 200 100 100 In Sodium Chloride 0.9% 100 ml @ 100 mls/hr IVPB Q8H [facility] Rx#:[id number] Cefepime 2 gm In Sodium 100 Chloride 0.9% 100 ml @ 25 mls/hr IVPB Q12HR [facility] Rx #:[id number] Cefepime 2 gm In Sodium 100 Chloride 0.9% 100 ml @ 25 mls/hr IVPB Q8H [facility] Rx#: [id number] D5-0.45% NaCl with KCl 900 900 75 30Meq/l 1,000 ml @ 75 mls /hr IV .[id number] [facility] Rx#: [id number] arterial line 36 36 3 Intake, IV Titration 190.282 Amount Amiodarone 450 mg In 190.282 Dextrose 5% in Water 250 ml @ 0.5 MG/MIN 16.667 mls/hr IV .Q15H [facility] Rx#: [id number] Oral 960 Output: Urine 385 665 50 Other: Voiding Method Indwelling Catheter Indwelling Catheter # Bowel Movements 1 ABP, PAP, CO, CI - Last Documented Arterial Blood Pressure 149/85 - Exam Gen: awake, alert HEENT: normocephalic, atraumatic, good hearing acuity, moist mucous membranes Resp: breathing comfortably with no accessory muscle use, good air exchange, on NC. GI: soft, NTTP, ND : no SPT, no CVAT, putnam catheter is present MSK: no pitting edema, no clubbing - Labs CBC & Chem 7: 07/22/21 09:05 07/22/21 09:05 Labs: Abnormal Lab Results - Last 24 Hours (Table) 07/21/21 07/22/21 07/22/21 Range/Units 18:32 00:17 06:25 RBC (3.80-5.40) m/uL Hgb (11.4-16.0) gm/dL Hct (34.0-46.0) % Plt Count (150-450) k/uL Lymphocytes # (1.0-4.8) k/uL Chloride (98-107) mmol/L BUN (7-17) mg/dL Glucose (74-99) mg/dL POC Glucose (mg/dL) 200 H 201 H 152 H (75-99) mg/dL Calcium (8.4-10.2) mg/dL Total Protein (6.3-8.2) g/dL Albumin (3.5-5.0) g/dL 07/22/21 07/22/21 07/22/21 Range/Units 09:05 09:05 11:39 RBC 3.23 L (3.80-5.40) m/uL Hgb 9.8 L (11.4-16.0) gm/dL Hct 29.3 L (34.0-46.0) % Plt Count 474 H (150-450) k/uL Lymphocytes # 0.3 L (1.0-4.8) k/uL Chloride 108 H (98-107) mmol/L BUN 28 H (7-17) mg/dL Glucose 157 H (74-99) mg/dL POC Glucose (mg/dL) 228 H (75-99) mg/dL Calcium 8.1 L (8.4-10.2) mg/dL Total Protein 5.5 L (6.3-8.2) g/dL Albumin 2.6 L (3.5-5.0) g/dL Microbiology - Last 24 Hours (Table) 07/11/21 15:00 Fungal Culture - Preliminary Bronchial Washings - Random 07/19/21 09:30 Gram Stain - Final Bronchial Washings - Random Bronchial Washings Culture - Final Assessment and Plan Assessment: Neutropenic fevers Acute myelogenous leukemia Pancytopenia, chemo induced Pneumonia Acute hypoxic respiratory failure, vent dependent ARDS Diarrhea Sepsis without septic shock - WBC and PLT increasing as of 07/16 - Covid negative, legionella urine Ag negative, Aspergillus IgE negative - 1, 3 - beta- D- glucan is negative - Viral studies negative. - all cultures negative to date. - PCP stain is negative - bronch 07/11 with cultures negative to date. - bronch 07/19 with cultures pending - ID, Pulm, Heme/onc recs appreciated - Continue with cefepime, and acyclovir - D/c'd voriconazole on 07/20 - cholestyramine A fib with RVR, currently in normal sinus rhythm -Cardizem drip was discontinued on 07/15. -Started enoxaparin 80mg SQ BID since blood counts have recovered - tele - echo essential within normal limits - consider cardio consult if echo is abnormal - patient is on metoprolol 25mg PO BID and amiodarone gtt Episode of tremors - EEG negative - CT head negative - neurology recs Moderate to severe MR Hypokalemia Hypomagnesemia Hypophosphatemia Hypocalcemia - replace as indicated Poor over all prognosis, however, improving this admission Awaiting direct AB stain results from [facility] [id number], not currently available.
--- NOTE | 2021-07-22 15:40 | PN ---
PROGRESS NOTE DATE OF SERVICE: 07/22/2021 REASON FOR FOLLOWUP: Febrile neutropenia/pneumonia. INTERVAL HISTORY: The patient is afebrile. The patient is feeling better, breathing comfortably. The patient is currently on 6 L nasal cannula. The patient denies having chest pain. Minimal cough. No nausea, no vomiting. No abdominal pain or diarrhea. PHYSICAL EXAMINATION: Blood pressure 113/65, pulse of 73, temperature 98. She is 94% on 6 L nasal cannula. GENERAL DESCRIPTION: General description is a middle-aged female up in the bed in no distress. RESPIRATORY SYSTEM: Unlabored breathing. Decreased intensity of breath sounds. No wheeze. HEART: S1, S2. Regular rate and rhythm. ABDOMEN: Soft. No tenderness. LABS: Hemoglobin is 9.9, white count 6.9, BUN of 28, creatinine 0.74. DIAGNOSTIC IMPRESSION AND PLAN: Patient with a component of febrile neutropenia and concern for possible pneumonia, status post bronch x2. Cultures have been negative for any resistant pathogen. On empiric cefepime; to continue to finish a 2-week course of therapy and close outpatient followup. MMODL / IJN: [id number] /
[2021-07-22] MEDS ORDERED: AMIODARONE 450 MG in DEXTROSE 5% IN WATER 250 ML IV SCH ×2 (16:40)
[2021-07-22 18:42] LABS: Glucose,Whole Blood 228 mg/dL (75-99)
[2021-07-22] MEDS: AMIODARONE 200 MG TAB PO SCH (20:27)
[2021-07-22 23:46] LABS: Glucose,Whole Blood 202 mg/dL (75-99)
[2021-07-23] MEDS: ACYCLOVIR SODIUM 500 MG in SODIUM CHLORIDE 0.9% 100 ML IVPB SCH ×4 (00:02→23:53)
[2021-07-23] MEDS: INSULIN ASPART (NovoLOG) 100 UNIT/ML VIAL SQ SCH ×5 (00:02→23:57)
[2021-07-23] MEDS: CEFEPIME 2 GM in SODIUM CHLORIDE 0.9% 100 ML IVPB SCH ×2 (01:28→12:49)
[2021-07-23 05:54] LABS: Glucose,Whole Blood 133 mg/dL (75-99)
[2021-07-23 06:53] LABS: Basophils % (A) 0 %; Eosinophils % (A) 0 %; HCT 29.1 % (34.0-46.0); HGB 9.5 gm/dL (11.4-16.0); Hypochromasia Slight; Lymphocytes # (A) 0.4 k/uL (1.0-4.8); Lymphocytes % (A) 6 %; MCHC 32.6 g/dL (31.0-37.0); Mean Platelet Volume 9.4; Monocytes % (A) 15 %; Neutrophils # (A) 5.3 k/uL (1.3-7.7); Neutrophils % (A) 77 %; Platelet Count 465 k/uL (150-450); RBC 3.17 m/uL (3.80-5.40); RDW 15.5 % (11.5-15.5); WBC 6.9 k/uL (3.8-10.6)
[2021-07-23 07:04] LABS: Albumin 2.4 g/dL (3.5-5.0); Calcium 7.9 mg/dL (8.4-10.2); Potassium 3.6 mmol/L (3.5-5.1); Total Bilirubin 0.5 mg/dL (0.2-1.3)
[2021-07-23] MEDS: ALBUTEROL NEBULIZED 2.5 MG/3 ML INHALATION SCH ×4 (08:45→19:35)
[2021-07-23] MEDS: predniSONE 20 MG TAB PO SCH (08:52)
[2021-07-23] MEDS: ZINC SULFATE 220 MG CAP PO SCH (08:52)
[2021-07-23] MEDS: SALT AND SODA MOUTHWASH 1,000 ML PO SCH ×4 (08:53→21:06)
[2021-07-23] MEDS: APIXABAN 5 MG TAB PO SCH ×2 (08:53→21:05)
[2021-07-23] MEDS: PANTOPRAZOLE 40 MG TABLET PO SCH ×2 (08:53→17:04)
[2021-07-23] MEDS: AMIODARONE 200 MG TAB PO SCH ×2 (08:53→21:05)
[2021-07-23] MEDS: METOPROLOL TARTRATE 25 MG TAB PO SCH ×2 (08:53→21:06)
[2021-07-23] MEDS: CHOLESTYRAMINE (WITH SUGAR) 4 GM PACKET PO SCH ×2 (08:54→16:21)
[2021-07-23] MEDS: PARoxetine 10 MG TAB PO SCH (09:25)
--- NOTE | 2021-07-23 09:42 | P.PN ---
Subjective Progress Note Date: 07/23/21 The patient was sitting up in the chair looks comfortable. She reports a good appetite as long as she can get food from home. She reports ablating with physical therapy in the car door with oxygen. She does not feel short of breath at rest with oxygen use. No fever/chills/nausea/vomiting/bursitis or diarrhea. Objective - Vital Signs Vital signs: Vital Signs Temp 98.1 F 07/23/21 04:36 Pulse 68 07/23/21 08:59 Resp 16 07/23/21 04:36 BP 106/63 07/23/21 04:36 Pulse Ox 99 07/23/21 08:49 Intake & Output 07/22/21 07/23/21 07/23/21 18:59 06:59 18:59 Intake Total 1551 20 Output Total 2000 850 Balance -449 -830 Weight 88.18 kg Intake: IV 591 20 0.9 carriers 120 20 Acyclovir Sodium 500 mg 100 In Sodium Chloride 0.9% 100 ml @ 100 mls/hr IVPB Q8H [facility] Rx#:[id number] Cefepime 2 gm In Sodium 100 Chloride 0.9% 100 ml @ 25 mls/hr IVPB Q12HR [facility] Rx #:[id number] D5-0.45% NaCl with KCl 150 30Meq/l 1,000 ml @ 75 mls /hr IV .[id number] [facility] Rx#: [id number] Voriconazole 360 mg In 100 Sodium Chloride 0.9% 250 ml @ 125 mls/hr IVPB Q12HR [facility] Rx#:[id number] arterial line 21 Oral 960 Output: Urine 1999 850 Other: Voiding Method Indwelling Catheter Indwelling Catheter # Bowel Movements 1 ABP, PAP, CO, CI - Last Documented Arterial Blood Pressure 149/85 - Constitutional General appearance: Present: no acute distress - EENT Eyes: Present: EOMI ENT: Present: hearing grossly normal, normal oropharynx - Respiratory Respiratory: bilateral: CTA - Cardiovascular Rhythm: regular Heart sounds: normal: S1, S2 - Gastrointestinal General gastrointestinal: Present: soft - Integumentary Integumentary: Present: normal - Neurologic Neurologic: Present: CNII-XII intact - Musculoskeletal Musculoskeletal: Present: strength equal bilaterally - Labs CBC & Chem 7: 07/23/21 05:59 07/23/21 05:59 Labs: Abnormal Lab Results - Last 24 Hours (Table) 07/22/21 07/22/21 07/22/21 Range/Units 11:39 18:40 23:44 RBC (3.80-5.40) m/uL Hgb (11.4-16.0) gm/dL Hct (34.0-46.0) % Plt Count (150-450) k/uL Lymphocytes # (1.0-4.8) k/uL Carbon Dioxide (22-30) mmol/L BUN (7-17) mg/dL Glucose (74-99) mg/dL POC Glucose (mg/dL) 228 H 228 H 202 H (75-99) mg/dL Calcium (8.4-10.2) mg/dL Total Protein (6.3-8.2) g/dL Albumin (3.5-5.0) g/dL 07/23/21 07/23/21 07/23/21 Range/Units 05:52 05:59 05:59 RBC 3.17 L (3.80-5.40) m/uL Hgb 9.5 L (11.4-16.0) gm/dL Hct 29.1 L (34.0-46.0) % Plt Count 465 H (150-450) k/uL Lymphocytes # 0.4 L (1.0-4.8) k/uL Carbon Dioxide 32 H (22-30) mmol/L BUN 28 H (7-17) mg/dL Glucose 127 H (74-99) mg/dL POC Glucose (mg/dL) 133 H (75-99) mg/dL Calcium 7.9 L (8.4-10.2) mg/dL Total Protein 5.0 L (6.3-8.2) g/dL Albumin 2.4 L (3.5-5.0) g/dL Assessment and Plan (1) Acute respiratory insufficiency Narrative/Plan: This is markedly improved. The patient is currently on 4 L of oxygen. Continue to wean oxygen as tolerated Current Visit: Yes Status: Acute Code(s): R06.89 - OTHER ABNORMALITIES OF BREATHING SNOMED Code(s): 873072875 (2) AML (acute myeloid leukemia) Narrative/Plan: The patient is status post induction chemotherapy, and is currently in the recovery phase. WBC and platelets are normal while hemoglobin is improving spontaneously. At this time the plan is to schedule follow-up bone marrow aspiration biopsy tentatively this coming week Current Visit: Yes Status: Acute Priority: High Code(s): C92.00 - ACUTE MYELOBLASTIC LEUKEMIA, NOT HAVING ACHIEVED REMISSION SNOMED Code(s): 50476841 (3) Pancytopenia due to antineoplastic chemotherapy Narrative/Plan: Markedly improved as noted. Continue to monitor Current Visit: Yes Status: Acute Priority: High Code(s): D61.810 - ANTINEOPLASTIC CHEMOTHERAPY INDUCED PANCYTOPENIA; T45.1X5A - ADVERSE EFFECT OF ANTINEOPLASTIC AND IMMUNOSUP DRUGS, INIT SNOMED Code(s): 298443646526918
--- NOTE | 2021-07-23 11:36 | P.PN ---
Subjective Progress Note Date: 07/23/21 07/23/2021, the patient is on 4 L about 2 by nasal cannula. Doing well. Pulse ox 99%. No complaints pain no chest pain. No shortness of breath. Lopez alert and awake. She is on normal sinus rhythm. She is on oral amiodarone. She is also on anticoagulation with Eliquis. No other new complaints otherwise for now. She is tolerating her diet. She is on a prednisone burst taper. Objective - Vital Signs Vital signs: Vital Signs Temp 98.1 F 07/23/21 04:36 Pulse 68 07/23/21 08:59 Resp 16 07/23/21 04:36 BP 106/63 07/23/21 04:36 Pulse Ox 99 07/23/21 08:49 Intake & Output 07/22/21 07/23/21 07/23/21 18:59 06:59 18:59 Intake Total 1551 20 Output Total 1999 850 Balance -449 -830 Weight 88.18 kg Intake: IV 591 20 0.9 carriers 120 20 Acyclovir Sodium 500 mg 100 In Sodium Chloride 0.9% 100 ml @ 100 mls/hr IVPB Q8H [facility] Rx#:[id number] Cefepime 2 gm In Sodium 100 Chloride 0.9% 100 ml @ 25 mls/hr IVPB Q12HR [facility] Rx #:[id number] D5-0.45% NaCl with KCl 150 30Meq/l 1,000 ml @ 75 mls /hr IV .[id number] ANJ[facility] Rx#: [id number] Voriconazole 360 mg In 100 Sodium Chloride 0.9% 250 ml @ 125 mls/hr IVPB Q12HR ANJ[facility] Rx#:[id number] arterial line 21 Oral 960 Output: Urine 1999 850 Other: Voiding Method Indwelling Catheter Indwelling Catheter # Bowel Movements 1 ABP, PAP, CO, CI - Last Documented Arterial Blood Pressure 149/85 - Exam Gen. appearance the patient is calm and comfortable sitting up on a chair on oxygen at 4 L per minute nasal cannula Head exam was generally normal. There was no scleral icterus or corneal arcus. Mucous membranes were moist. Neck was supple and without jugular venous distension, thyromegaly, or carotid bruits. Carotids were easily palpable bilaterally. There was no adenopathy. Lungs sounds are diminished and there are diffuse rhonchi heard throughout the lung his bilaterally. Otherwise the breath sounds are equal for now. No significant wheezes. Cardiac exam revealed the PMI to be normally situated and sized. The rhythm was regular and no extrasystoles were noted during several minutes of auscultation. The first and second heart sounds were normal and physiologic splitting of the second heart sound was noted. There were no murmurs, rubs, clicks, or gallops. Abdominal exam revealed normal bowel sounds. The abdomen was soft, non-tender, and without masses, organomegaly, or appreciable enlargement of the abdominal aorta. Examination of the extremities revealed easily palpable radial, femoral and pedal pulses. There was no cyanosis, clubbing or edema. Examination of the skin revealed no evidence of significant rashes, suspicious appearing nevi or other concerning lesions. The patient has petechia in the lower extremities bilaterally related to underlying thrombocytopenia. Few areas of bruising, not extensive. The patient has increased edema in lower extremities bilaterally. Neurologically, the patient is awake and alert and moving all 4 extremities without limitation. No significant sedation for now.. No focal neurological deficits. - Labs CBC & Chem 7: 07/23/21 05:59 07/23/21 05:59 Labs: Abnormal Lab Results - Last 24 Hours (Table) 07/22/21 07/22/21 07/22/21 Range/Units 11:39 18:40 23:44 RBC (3.80-5.40) m/uL Hgb (11.4-16.0) gm/dL Hct (34.0-46.0) % Plt Count (150-450) k/uL Lymphocytes # (1.0-4.8) k/uL Carbon Dioxide (22-30) mmol/L BUN (7-17) mg/dL Glucose (74-99) mg/dL POC Glucose (mg/dL) 228 H 228 H 202 H (75-99) mg/dL Calcium (8.4-10.2) mg/dL Total Protein (6.3-8.2) g/dL Albumin (3.5-5.0) g/dL 07/23/21 07/23/21 07/23/21 Range/Units 05:52 05:59 05:59 RBC 3.17 L (3.80-5.40) m/uL Hgb 9.5 L (11.4-16.0) gm/dL Hct 29.1 L (34.0-46.0) % Plt Count 465 H (150-450) k/uL Lymphocytes # 0.4 L (1.0-4.8) k/uL Carbon Dioxide 32 H (22-30) mmol/L BUN 28 H (7-17) mg/dL Glucose 127 H (74-99) mg/dL POC Glucose (mg/dL) 133 H (75-99) mg/dL Calcium 7.9 L (8.4-10.2) mg/dL Total Protein 5.0 L (6.3-8.2) g/dL Albumin 2.4 L (3.5-5.0) g/dL Assessment and Plan Plan: 1 acute bilateral pneumonia with rapid progression of bilateral pulmonary inf iltrates and the patient currently has extensive bilateral airspace disease and coarse interstitial pulmonary infiltrates, consider opportunistic infections especially with her underlying immunosuppression. The bronchioloalveolar lavage has been negative thus far. PCP stain of been negative. Legionella urine antigen was negative. Lavage with viral screen of the bronchioloalveolar lavage has been negative. COVID 19 testing was negative. The patient's regular bacterial cultures and the fungal cultures are negative. She remains on broad- spectrum antibiotics. The patient had bronchoscopy 2. Cultures were all negative. The patient was extubated initially and she failed extubation she had to be intubated. She was ultimately extubated again on 07/19/2021. She was extubated to BiPAP. She is stable for now on oxygen at 4 L of Oxymizer nasal cannula. 2 acute hypoxic respiratory failure secondary to above, improving and the patient is currently on 4 L of oxygen by nasal cannula 3 shortness of breath secondary to but not limited to above mentioned pneumonia, improving hemoglobin 4 acute myeloid leukemia post induction chemotherapy, remains leukopenic, the white cell count is gradually improving, white cell count is improved 5 pancytopenia, with early signs of recovery of the bone marrow post induction chemotherapy in a patient with AML. Note that the patient stated count has normalized. 6 Afebrile to having episodic fever on multiple occasions last week. 7 electrolytes disturbance, being managed and replaced 8 diarrhea, stool for C. diff has been negative, no diarrhea 9 paroxysmal atrial fibrillation, current rhythm is sinus and the patient will be taken off the Cardizem drip. The current rhythm is sinus Plan Continue oral amiodarone 400 mg by mouth twice a day Continue metoprolol Anticoagulations through Eliquis 5 mg by mouth twice a day Antibiotic management per ID and the patient is on cefepime and acyclovir Rest of the cultures were all negative Chest x-rays improving Echocardiogram to be completed and the patient is a preserved LV function with an ejection fraction of 50-55%. prednisone and this will be a quick taper Fluids to KVO. Monitor electrolytes including sodium level We'll continue to follow. was updated. Case was also discussed with hematology oncology. May transfer to oncology unit today.
[2021-07-23 11:57] LABS: Glucose,Whole Blood 150 mg/dL (75-99)
--- NOTE | 2021-07-23 12:29 | P.PN ---
Subjective Progress Note Date: 07/23/21 Pt doing well today. On 4L NC, sitting in chair resting comfortably. Conversing with family. Good mood, good appetite. On eliquis, prednisone, amiodarone, cefepime, acyclovir. Plan for BMBx early this week. Objective - Vital Signs Vital signs: Vital Signs Temp 98.1 F 07/23/21 04:36 Pulse 68 07/23/21 08:59 Resp 16 07/23/21 04:36 BP 106/63 07/23/21 04:36 Pulse Ox 99 07/23/21 08:49 Intake & Output 07/22/21 07/23/21 07/23/21 18:59 06:59 18:59 Intake Total 1551 20 Output Total 1999 850 Balance -449 -830 Weight 88.18 kg Intake: IV 591 20 0.9 carriers 120 20 Acyclovir Sodium 500 mg 100 In Sodium Chloride 0.9% 100 ml @ 100 mls/hr IVPB Q8H [facility] Rx#:[id number] Cefepime 2 gm In Sodium 100 Chloride 0.9% 100 ml @ 25 mls/hr IVPB Q12HR [facility] Rx #:[id number] D5-0.45% NaCl with KCl 150 30Meq/l 1,000 ml @ 75 mls /hr IV .[id number] ANJEL Rx#: [id number] Voriconazole 360 mg In 100 Sodium Chloride 0.9% 250 ml @ 125 mls/hr IVPB Q12HR [facility] Rx#:[id number] arterial line 21 Oral 960 Output: Urine 1999 850 Other: Voiding Method Indwelling Catheter Indwelling Catheter # Bowel Movements 1 ABP, PAP, CO, CI - Last Documented Arterial Blood Pressure 149/85 - Exam Gen: awake, alert HEENT: normocephalic, atraumatic, good hearing acuity, moist mucous membranes Resp: breathing comfortably with no accessory muscle use, good air exchange, on NC. GI: soft, NTTP, ND : no SPT, no CVAT, putnam catheter is present MSK: no pitting edema, no clubbing - Labs CBC & Chem 7: 07/23/21 05:59 07/23/21 05:59 Labs: Abnormal Lab Results - Last 24 Hours (Table) 07/22/21 07/22/21 07/23/21 Range/Units 18:40 23:44 05:52 RBC (3.80-5.40) m/uL Hgb (11.4-16.0) gm/dL Hct (34.0-46.0) % Plt Count (150-450) k/uL Lymphocytes # (1.0-4.8) k/uL Carbon Dioxide (22-30) mmol/L BUN (7-17) mg/dL Glucose (74-99) mg/dL POC Glucose (mg/dL) 228 H 202 H 133 H (75-99) mg/dL Calcium (8.4-10.2) mg/dL Total Protein (6.3-8.2) g/dL Albumin (3.5-5.0) g/dL 07/23/21 07/23/21 07/23/21 Range/Units 05:59 05:59 11:56 RBC 3.17 L (3.80-5.40) m/uL Hgb 9.5 L (11.4-16.0) gm/dL Hct 29.1 L (34.0-46.0) % Plt Count 465 H (150-450) k/uL Lymphocytes # 0.4 L (1.0-4.8) k/uL Carbon Dioxide 32 H (22-30) mmol/L BUN 28 H (7-17) mg/dL Glucose 127 H (74-99) mg/dL POC Glucose (mg/dL) 150 H (75-99) mg/dL Calcium 7.9 L (8.4-10.2) mg/dL Total Protein 5.0 L (6.3-8.2) g/dL Albumin 2.4 L (3.5-5.0) g/dL Assessment and Plan Assessment: Neutropenic fevers Acute myelogenous leukemia Pancytopenia, chemo induced Pneumonia Acute hypoxic respiratory failure, vent dependent ARDS Diarrhea Sepsis without septic shock - WBC and PLT increasing as of 07/16 - Covid negative, legionella urine Ag negative, Aspergillus IgE negative - 1, 3 - beta- D- glucan is negative - Viral studies negative. - all cultures negative to date. - PCP stain is negative - bronch 07/11 with cultures negative to date. - bronch 07/19 with cultures pending - ID, Pulm, Heme/onc recs appreciated - Continue with cefepime, and acyclovir - D/c'd voriconazole on 07/20 - cholestyramine A fib with RVR, currently in normal sinus rhythm -Cardizem drip was discontinued on 07/15. -Started enoxaparin 80mg SQ BID since blood counts have recovered - tele - echo essential within normal limits - consider cardio consult if echo is abnormal - patient is on metoprolol 25mg PO BID and amiodarone gtt Episode of tremors - EEG negative - CT head negative - neurology recs Moderate to severe MR Hypokalemia Hypomagnesemia Hypophosphatemia Hypocalcemia - replace as indicated
[2021-07-23 17:34] LABS: Glucose,Whole Blood 213 mg/dL (75-99)
[2021-07-23] MEDS: NYSTATIN 100,000 UNIT/ML SUSP 500,000 UNIT/5 ML CUP PO SCH ×2 (18:08→21:05)
--- NOTE | 2021-07-23 19:31 | PN ---
PROGRESS NOTE DATE OF SERVICE: 07/23/2021 REASON FOR FOLLOWUP: Febrile neutropenia, possible pneumonia. INTERVAL HISTORY: The patient is afebrile. The patient is feeling better. She is breathing comfortably. The patient denies having any chest pain. Occasional cough. No abdominal pain or diarrhea. PHYSICAL EXAMINATION: Blood pressure 123/74 with a pulse of 67, temperature 98. She is 98% on 4 L nasal cannula oxygen. GENERAL DESCRIPTION: General description is a middle-aged female up in the bed in no distress. RESPIRATORY SYSTEM: Unlabored breathing. Decreased intensity of breath sounds. No wheeze. HEART: S1, S2. Regular rate and rhythm. ABDOMEN: Soft. No tenderness. EXTREMITIES: No edema of the feet. LABS: Hemoglobin 7.2, white count 6.8. BUN of 20, creatinine 0.87. DIAGNOSTIC IMPRESSION AND PLAN: 1. Patient with febrile neutropenia and concern for possible pneumonia, for which the patient has received adequate antibiotic therapy. We will discontinue vancomycin. Monitor the patient closely off antibiotic. 2. Mild oral thrush. Will add nystatin swish and swallow and continue with supportive care. MMODL / IJN: [id number] /
[2021-07-23 21:05] LABS: Glucose,Whole Blood 211 mg/dL (75-99)
[2021-07-23 23:57] LABS: Glucose,Whole Blood 182 mg/dL (75-99)
[2021-07-24 05:32] LABS: Basophils % (A) 0 %; Eosinophils % (A) 0 %; HCT 27.8 % (34.0-46.0); HGB 9.1 gm/dL (11.4-16.0); Lymphocytes # (A) 0.6 k/uL (1.0-4.8); Lymphocytes % (A) 10 %; MCH 30.1 pg (25.0-35.0); MCHC 32.9 g/dL (31.0-37.0); MCV 91.4 fL (80.0-100.0); Mean Platelet Volume 9.1; Monocytes # (A) 0.9 k/uL (0-1.0); Monocytes % (A) 15 %; Neutrophils # (A) 4.3 k/uL (1.3-7.7); Neutrophils % (A) 72 %; Platelet Count 472 k/uL (150-450); RBC 3.04 m/uL (3.80-5.40); RDW 15.3 % (11.5-15.5)
[2021-07-24 06:03] LABS: Glucose,Whole Blood 88 mg/dL (75-99)
[2021-07-24] MEDS: INSULIN ASPART (NovoLOG) 100 UNIT/ML VIAL SQ SCH ×4 (06:06→23:56)
[2021-07-24] MEDS: VORICONAZOLE IVPB SCH (07:40)
[2021-07-24] MEDS: SODIUM CHLORIDE 0.9% IVPB SCH (07:40)
[2021-07-24] MEDS: ALBUTEROL NEBULIZED 2.5 MG/3 ML INHALATION SCH ×2 (07:44→11:46)
[2021-07-24] MEDS: NYSTATIN 100,000 UNIT/ML SUSP 500,000 UNIT/5 ML CUP PO SCH ×4 (08:49→21:05)
[2021-07-24] MEDS: METOPROLOL TARTRATE 25 MG TAB PO SCH ×2 (08:49→21:05)
[2021-07-24] MEDS: APIXABAN 5 MG TAB PO SCH ×2 (08:49→11:48)
[2021-07-24] MEDS: CHOLESTYRAMINE (WITH SUGAR) 4 GM PACKET PO SCH ×2 (08:49→18:15)
[2021-07-24] MEDS: PANTOPRAZOLE 40 MG TABLET PO SCH ×2 (08:49→18:15)
[2021-07-24] MEDS: ZINC SULFATE 220 MG CAP PO SCH (08:49)
[2021-07-24] MEDS: AMIODARONE 200 MG TAB PO SCH ×2 (08:49→21:05)
[2021-07-24] MEDS: SALT AND SODA MOUTHWASH 1,000 ML PO SCH ×4 (08:50→21:05)
[2021-07-24] MEDS: predniSONE 20 MG TAB PO SCH (08:50)
[2021-07-24] MEDS: PARoxetine 10 MG TAB PO SCH (08:50)
[2021-07-24] MEDS: ACYCLOVIR SODIUM 500 MG in SODIUM CHLORIDE 0.9% 100 ML IVPB SCH ×3 (09:33→23:54)
--- NOTE | 2021-07-24 11:08 | P.PN ---
Subjective Progress Note Date: 07/24/21 No new complaints today. Pt was titrated off of O2. Ongoing cefepime, acyclovir. WBC is normal, not neutropenic. Hgb stable, PLTs 472. Plan for BMBx tomorrow AM, then discharge home with onc follow up. Objective - Vital Signs Vital signs: Vital Signs Temp 98.1 F 07/24/21 04:27 Pulse 75 07/24/21 07:59 Resp 18 07/24/21 04:27 BP 118/74 07/24/21 04:27 Pulse Ox 94 L 07/24/21 09:35 Intake & Output 07/23/21 07/24/21 07/24/21 18:59 06:59 18:59 Weight 88.5 kg Other: Voiding Method Indwelling Catheter Indwelling Catheter Bedside Commode ABP, PAP, CO, CI - Last Documented Arterial Blood Pressure 149/85 - Exam Gen: awake, alert HEENT: normocephalic, atraumatic, good hearing acuity, moist mucous membranes Resp: breathing comfortably with no accessory muscle use, good air exchange, on NC. GI: soft, NTTP, ND : no SPT, no CVAT, putnam catheter is present MSK: no pitting edema, no clubbing - Labs CBC & Chem 7: 07/24/21 04:41 07/23/21 05:59 Labs: Abnormal Lab Results - Last 24 Hours (Table) 07/23/21 07/23/21 07/23/21 Range/Units 11:56 17:33 21:03 RBC (3.80-5.40) m/uL Hgb (11.4-16.0) gm/dL Hct (34.0-46.0) % Plt Count (150-450) k/uL Lymphocytes # (1.0-4.8) k/uL POC Glucose (mg/dL) 150 H 213 H 211 H (75-99) mg/dL 07/23/21 07/24/21 Range/Units 23:55 04:41 RBC 3.04 L (3.80-5.40) m/uL Hgb 9.1 L (11.4-16.0) gm/dL Hct 27.8 L (34.0-46.0) % Plt Count 472 H (150-450) k/uL Lymphocytes # 0.6 L (1.0-4.8) k/uL POC Glucose (mg/dL) 182 H (75-99) mg/dL Assessment and Plan Assessment: Neutropenic fevers Acute myelogenous leukemia Pancytopenia, chemo induced Pneumonia Acute hypoxic respiratory failure, vent dependent ARDS Diarrhea Sepsis without septic shock - WBC and PLT increasing as of 07/16 - Covid negative, legionella urine Ag negative, Aspergillus IgE negative - 1, 3 - beta- D- glucan is negative - Viral studies negative. - all cultures negative to date. - PCP stain is negative - bronch 07/11 with cultures negative to date. - bronch 07/19 with cultures pending - ID, Pulm, Heme/onc recs appreciated - Continue with cefepime, and acyclovir - D/c'd voriconazole on 07/20 - cholestyramine A fib with RVR, currently in normal sinus rhythm -Cardizem drip was discontinued on 07/15. -Started enoxaparin 80mg SQ BID since blood counts have recovered - tele - echo essential within normal limits - consider cardio consult if echo is abnormal - patient is on metoprolol 25mg PO BID and amiodarone gtt Episode of tremors - EEG negative - CT head negative - neurology recs Moderate to severe MR Hypokalemia Hypomagnesemia Hypophosphatemia Hypocalcemia - replace as indicated
[2021-07-24 12:14] LABS: Glucose,Whole Blood 133 mg/dL (75-99)
[2021-07-24 13:15] VITALS: BMI 33.5
--- NOTE | 2021-07-24 14:01 | P.PN ---
Subjective Progress Note Date: 07/24/21 Principal diagnosis: Neutropenic sepsis. 07/23/2021, the patient is on 4 L about 2 by nasal cannula. Doing well. Pulse ox 99%. No complaints pain no chest pain. No shortness of breath. Lopez alert and awake. She is on normal sinus rhythm. She is on oral amiodarone. She is also on anticoagulation with Eliquis. No other new complaints otherwise for now. She is tolerating her diet. She is on a prednisone burst taper. Progress note dated 07/24/2021. Currently, the patient has been weaned off of oxygen. She feeling much better. She apparently is going to have a bone marrow aspiration tomorrow morning. We did order a chest x-ray for the morning. She denies any shortness of breath, chest pain, cough, wheezing, or phlegm production. She also denies any genit ourinary or GI issues much better and is hoping to be discharged tomorrow, after the bone marrow biopsy. Today's labs include a white count of 6, hemoglobin 9.1, hematocrit 27.8, and platelet count 472,000. Objective - Vital Signs Vital signs: Vital Signs Temp 98.7 F 07/24/21 12:10 Pulse 73 07/24/21 12:10 Resp 18 07/24/21 12:10 BP 130/70 07/24/21 12:10 Pulse Ox 91 L 07/24/21 12:10 Intake & Output 07/23/21 07/24/21 07/24/21 18:59 06:59 18:59 Weight 88.5 kg 88.5 kg Other: Voiding Method Indwelling Catheter Indwelling Catheter Bedside Commode ABP, PAP, CO, CI - Last Documented Arterial Blood Pressure 149/85 - Exam No acute distress, oriented 3. Patient is currently on room air, with excellent saturations. HEENT examination is grossly unremarkable. Neck supple. Full range of motion. No adenopathy thyromegaly or neck vein distention. Cardiovascular examination reveals regular rhythm rate. S1-S2 normal. No S3 or S4. No discernible murmur noted. Heart rate 74 bpm. Lungs reveal clear breath sounds. Breath sounds are equal bilaterally. No adventitious lung sounds including wheezes rhonchi or crackles. Abdomen soft bowel sounds are heard. No masses or tenderness. Extremities are intact. No cyanosis clubbing or edema. Skin is without rash or lesion. Neurologic examination is brief but nonfocal. - Labs CBC & Chem 7: 07/24/21 04:41 07/23/21 05:59 Labs: Abnormal Lab Results - Last 24 Hours (Table) 07/23/21 07/23/21 07/23/21 Range/Units 17:33 21:03 23:55 RBC (3.80-5.40) m/uL Hgb (11.4-16.0) gm/dL Hct (34.0-46.0) % Plt Count (150-450) k/uL Lymphocytes # (1.0-4.8) k/uL POC Glucose (mg/dL) 213 H 211 H 182 H (75-99) mg/dL 07/24/21 07/24/21 Range/Units 04:41 12:09 RBC 3.04 L (3.80-5.40) m/uL Hgb 9.1 L (11.4-16.0) gm/dL Hct 27.8 L (34.0-46.0) % Plt Count 472 H (150-450) k/uL Lymphocytes # 0.6 L (1.0-4.8) k/uL POC Glucose (mg/dL) 133 H (75-99) mg/dL Microbiology - Last 24 Hours (Table) 07/11/21 15:00 Acid Fast Bacilli Smear - Final Bronchial Washings - Random Acid Fast Bacilli Culture - Preliminary Assessment and Plan Assessment: Bilateral pneumonia, with negative microbiologic sampling. The patient did require intubation and extubation 2. Currently, the patient has been weaned off of oxygen therapy. Anticipated bone marrow biopsy tomorrow on 07/25/2021. Acute neutropenic sepsis. Acute myeloid leukemia, status post induction chemotherapy, with profound leukopenia. Pancytopenia secondary to induction chemotherapy. Diarrhea, improved, with C. diff studies being negative thus far. History of paroxysmal atrial fibrillation. Plan: Plan dated 07/24/2021. Currently, the patient's doing much better. She's been weaned off of oxygen therapy. The patient will have a chest x-ray tomorrow. She is also going to have a bone marrow aspiration done tomorrow. Additional recommendations and sug gestions are forthcoming. The patient's currently on amiodarone for her paroxysmal atrial fibrillation. We will continue to follow make recommendations where appropriate. Prognosis is guarded. Time with Patient: Less than 30
--- NOTE | 2021-07-24 14:05 | PN ---
PROGRESS NOTE DATE OF SERVICE: 07/24/2021 REASON FOR FOLLOWUP: Febrile neutropenia and possible pneumonia. INTERVAL HISTORY: The patient is afebrile. The patient is feeling better, breathing comfortably on room air. The patient denies having any chest pain. Minimal cough. No abdominal pain or diarrhea. PHYSICAL EXAMINATION: Blood pressure is 118/74, pulse of 65, temperature 98.1. She is 96% on room air. GENERAL DESCRIPTION: General description is a middle-aged female lying in bed in no distress. RESPIRATORY SYSTEM: Unlabored breathing. Decreased intensity of breath sounds. No wheeze. HEART: S1, S2. Regular rate and rhythm. ABDOMEN: Soft. No tenderness. EXTREMITIES: No edema of the feet. LABS: Hemoglobin 9.9, white count 6.0. DIAGNOSTIC IMPRESSION AND PLAN: Patient with febrile neutropenia concerning for possible pneumonia. The patient's infection has been adequately treated. The patient's antibiotic has been discontinued. Will monitor closely off antibiotic therapy. Multiple questions and concerns were answered. MMODL / IJN: [id number] /
[2021-07-24] MEDS: ALBUTEROL NEBULIZED 2.5 MG/3 ML INHALATION PRN ×2 (15:36→21:07)
--- NOTE | 2021-07-24 17:00 | P.PN ---
Subjective Progress Note Date: 07/24/21 Principal diagnosis: AML, subsequent neutropenic fever post induction chemo In follow-up today patient is off O2 - just started trial-she feels pretty good, she is starting to get moving in the room, getting up in chair, eating and drinking. No fever, oral irritation, new or progressive cough. Objective - Vital Signs Vital signs: Vital Signs Temp 98.1 F 07/24/21 04:27 Pulse 75 07/24/21 07:59 Resp 18 07/24/21 04:27 BP 118/74 07/24/21 04:27 Pulse Ox 94 L 07/24/21 09:35 Intake & Output 07/23/21 07/24/21 07/24/21 18:59 06:59 18:59 Weight 88.5 kg Other: Voiding Method Indwelling Catheter Indwelling Catheter Bedside Commode ABP, PAP, CO, CI - Last Documented Arterial Blood Pressure 149/85 - Constitutional General appearance: Present: average body habitus, cooperative, no acute distress - EENT Eyes: Present: anicteric sclerae, EOMI ENT: Present: hearing grossly normal, normal oropharynx - Respiratory Respiratory: bilateral: CTA - Cardiovascular Rhythm: regular Heart sounds: normal: S1, S2 Abnormal Heart Sounds: Absent: systolic murmur, diastolic murmur, rub, S3 Gallop, S4 Gallop, click, other - Peripheral edema leg Peripheral Edema: bilateral: None - Gastrointestinal General gastrointestinal: Present: normal bowel sounds, soft - Neurologic Neurologic: Present: CNII-XII intact - Musculoskeletal Musculoskeletal: Present: strength equal bilaterally - Psychiatric Psychiatric: Present: A&O x's 3, appropriate affect, intact judgment & insight - Labs CBC & Chem 7: 07/24/21 04:41 07/23/21 05:59 Labs: Abnormal Lab Results - Last 24 Hours (Table) 07/23/21 07/23/21 07/23/21 Range/Units 11:56 17:33 21:03 RBC (3.80-5.40) m/uL Hgb (11.4-16.0) gm/dL Hct (34.0-46.0) % Plt Count (150-450) k/uL Lymphocytes # (1.0-4.8) k/uL POC Glucose (mg/dL) 150 H 213 H 211 H (75-99) mg/dL 07/23/21 07/24/21 Range/Units 23:55 04:41 RBC 3.04 L (3.80-5.40) m/uL Hgb 9.1 L (11.4-16.0) gm/dL Hct 27.8 L (34.0-46.0) % Plt Count 472 H (150-450) k/uL Lymphocytes # 0.6 L (1.0-4.8) k/uL POC Glucose (mg/dL) 182 H (75-99) mg/dL Assessment and Plan (1) Neutropenic fever Current Visit: Yes Status: Resolved Priority: High Code(s): D70.9 - NEUTROPENIA, UNSPECIFIED; R50.81 - FEVER PRESENTING WITH CONDITIONS CLASSIFIED ELSEWHERE SNOMED Code(s): 602866837 (2) Pancytopenia due to antineoplastic chemotherapy Narrative/Plan: Hemoglobin stable, better, 9.1. Platelets normal. WBC 6. Plt 472,000 Current Visit: Yes Status: Acute Priority: High Code(s): D61.810 - ANTINE OPLASTIC CHEMOTHERAPY INDUCED PANCYTOPENIA; T45.1X5A - ADVERSE EFFECT OF ANTINEOPLASTIC AND IMMUNOSUP DRUGS, INIT SNOMED Code(s): 770882795526480 (3) Respiratory failure Current Visit: Yes Status: Resolved Priority: High Code(s): J96.90 - RESPIRATORY FAILURE, UNSP, UNSP W HYPOXIA OR HYPERCAPNIA SNOMED Code(s): 614576922 (4) AML (acute myeloid leukemia) Narrative/Plan: Patient is status post induction chemotherapy. 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 This is been held due to patient's acute situation. Will not start this cycle. Pt is at completion of induction cycle. Bone marrow biopsy tomorrow. Hold eliquis dose this evening and in AM. Consent requested. Current Visit: Yes Status: Acute Priority: High Code(s): C92.00 - ACUTE MYELOBLASTIC LEUKEMIA, NOT HAVING ACHIEVED REMISSION SNOMED Code(s): 82420992 Plan: Dr. Forte discussed case with Cardiology. Pt was started on anticoagulation in ICU when she had septic arrhythmia. Recommendation is for 6 weeks a nticoagulation. Cardiology formally consulted to follow with pt as she gets treatment for AML and possible moves to SCT. Doctor attests: I performed a history and physical examination of this patient, developed impression and plan of care. Discussed with dictator. I agree with dictators note, documented as a scribe.
[2021-07-24 18:08] LABS: Glucose,Whole Blood 240 mg/dL (75-99)
[2021-07-24 23:58] LABS: Glucose,Whole Blood 112 mg/dL (75-99)
[2021-07-25 05:37] LABS: Glucose,Whole Blood 85 mg/dL (75-99)
[2021-07-25] MEDS: INSULIN ASPART (NovoLOG) 100 UNIT/ML VIAL SQ SCH ×2 (05:47→13:39)
[2021-07-25 06:24] LABS: Basophils % (A) 1 %; Eosinophils % (A) 0 %; HGB 9.5 gm/dL (11.4-16.0); Lymphocytes # (A) 0.7 k/uL (1.0-4.8); Lymphocytes % (A) 13 %; MCH 30.5 pg (25.0-35.0); MCHC 32.9 g/dL (31.0-37.0); MCV 92.7 fL (80.0-100.0); Monocytes # (A) 0.7 k/uL (0-1.0); Monocytes % (A) 13 %; Neutrophils # (A) 3.9 k/uL (1.3-7.7); Neutrophils % (A) 71 %; Platelet Count 457 k/uL (150-450); RBC 3.13 m/uL (3.80-5.40); RDW 15.8 % (11.5-15.5); WBC 5.5 k/uL (3.8-10.6)
[2021-07-25 06:38] LABS: ALT 25 U/L (4-34); AST 46 U/L (14-36); African American GFR (CKD) >90 (>60 ml/min/1.73 sqM); Albumin 2.4 g/dL (3.5-5.0); Albumin/Globulin Ratio 0.9; Alkaline Phosphatase 93 U/L (38-126); Anion Gap 3 mmol/L; Blood Urea Nitrogen 13 mg/dL (7-17); Carbon Dioxide 33 mmol/L (22-30); Chloride 106 mmol/L (98-107); Globulin 2.7 g/dL; Glucose 85 mg/dL (74-99); Non-African American GFR(CKD) 86 (>60 ml/min/1.73 sqM); Potassium 2.8 mmol/L (3.5-5.1); Sodium 142 mmol/L (137-145); Total Bilirubin 0.3 mg/dL (0.2-1.3); Total Protein 5.1 g/dL (6.3-8.2)
[2021-07-25] MEDS ORDERED: POTASSIUM CHLORIDE ER 20 MEQ TAB.ER PO STA ×2 (06:54→08:03)
[2021-07-25] MEDS: POTASSIUM CHLORIDE 20 MEQ in WATER FOR INJECTION 1 100ML.BAG IVPB SCH ×3 (07:09→11:52)
[2021-07-25] MEDS ORDERED: PROPOFOL 10 MG/ML 20 ML VIAL IV ONE (07:17)
[2021-07-25] MEDS ORDERED: LIDOCAINE 1% INJ 10MG/ML (20 ML MDV) ONE (07:17)
[2021-07-25] MEDS ORDERED: IV FLUID CONTINUATION 300 ML IV ONE (07:17)
[2021-07-25 08:30] VITALS: RESP 16
[2021-07-25 08:30] LABS: Reticulocyte % 2.6 % (0.5-2.0)
[2021-07-25] MEDS: CHOLESTYRAMINE (WITH SUGAR) 4 GM PACKET PO SCH (08:57)
[2021-07-25] MEDS: NYSTATIN 100,000 UNIT/ML SUSP 500,000 UNIT/5 ML CUP PO SCH (08:58)
[2021-07-25] MEDS: AMIODARONE 200 MG TAB PO SCH (08:58)
[2021-07-25] MEDS: METOPROLOL TARTRATE 25 MG TAB PO SCH (08:58)
[2021-07-25] MEDS: PANTOPRAZOLE 40 MG TABLET PO SCH (08:58)
[2021-07-25] MEDS: predniSONE 20 MG TAB PO SCH (08:58)
[2021-07-25] MEDS: PARoxetine 10 MG TAB PO SCH (08:59)
[2021-07-25] MEDS: ZINC SULFATE 220 MG CAP PO SCH (08:59)
[2021-07-25] MEDS: SALT AND SODA MOUTHWASH 1,000 ML PO SCH ×2 (08:59→14:06)
--- NOTE | 2021-07-25 09:00 | XR ---
EXAMINATION TYPE: XR chest 1V portable DATE OF EXAM: 07/25/2021 COMPARISON: 07/21/2021 INDICATION: Short of breath TECHNIQUE: Single frontal view of the chest is obtained. FINDINGS: The heart size is normal. The pulmonary vasculature is normal. Previous prominence has reduced. Mild infiltrates at the right lung base. Some left perihilar infiltrate is present. Findings are wors ening. IMPRESSION: 1. Left perihilar and right lower lobe infiltrates, slightly worsened over the interval. 2. Improved pulmonary vascular markings
[2021-07-25] MEDS: ACYCLOVIR SODIUM 500 MG in SODIUM CHLORIDE 0.9% 100 ML IVPB SCH (09:46)
--- NOTE | 2021-07-25 10:38 | OP ---
OPERATIVE REPORT DATE OF SERVICE: 07/25/2021 PROCEDURE: Bone marrow aspirate and biopsy. 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 PROCEDURE DESCRIPTION: The procedure was performed in the endoscopy suite under general anesthesia performed by the anesthesia team. After obtaining informed consent from the patient, the patient was put in the left lateral decubitus position. The right posterior superior iliac crest was localized. Skin was prepped with ChloraPrep. All sterile procedures were followed. Xylocaine 2% 2 mL was used for local anesthetic. One rigid needle was inserted. About 10 mL of aspirate and 2 cm core biopsy was obtained without any difficulties. Pressure applied afterwards. There was negligible blood loss. Patient tolerated procedure very well without any immediate complications. MMODL / IJN: [id number] /
--- NOTE | 2021-07-25 11:36 | P.CRDCN ---
History of Present Illness History of present illness: HISTORY OF PRESENTING ILLNESS This is a pleasant 61-year-old female past medical history significant for myeloid leukemia and arthritis. She denies prior history of coronary artery disease and does not follow in the office with a psychotherapist counselor. We have been asked to see in consultation for anticoagulation recommendations. She has had a complicated lengthy hospital stay secondary to hypoxic respiratory failure requiring mechanical ventilation. While she was in the intensive care unit she had an episode on July 13 of atrial fibrillation with rapid ventricular response. She was loaded with amiodarone and given IV Cardizem. She subsequently converted back to sinus rhythm and has been maintaining that. She is seen and examined sitting up in no acute distress. She denies symptoms of chest discomfort, shortness of breath, dizziness or palpitations. She does recall that the episode of A. fib and states she felt her heart racing and fluttering quite fast and was lightheaded at the time. She denies ever having felt the symptoms in the past. She is currently maintained on amiodarone and Eliquis along with metoprolol. Telemetry tracings reveal persistent sinus m echanism. Laboratory data reviewed, WBC 5, hemoglobin 9.5, platelets 457, sodium 142, potassium 2.8, creatinine 0.76, magnesium on July 20 was 2.0. A limited echocardiogram obtained on 07/11/2021 revealed preserved LV systolic function with ejection fraction 50-55%, moderate to severe MR, mild TR and mild pulmonary hypertension with an RVSP of 34 mmHg. REVIEW OF SYSTEMS At the time of my exam: CONSTITUTIONAL: Denies fever or chills. CARDIOVASCULAR: Denies chest pain, shortness of breath, orthopnea, PND or palpitations. RESPIRATORY: Denies cough. GASTROINTESTINAL: Denies abdominal pain, diarrhea, constipation, nausea or vomiting. MUSCULOSKELETAL: Denies myalgias. NEUROLOGIC: Denies numbness, tingling, headache or weakness. ENDOCRINE: Denies fatigue, weight change, polydipsia or polyurina. GENITOURINARY: Denies burning, hematuria or urgency with micturation. HEMATOLOGIC: Denies history of anemia or bleeding. PHYSICAL EXAMINATION Blood pressure 127/68 heart rate 65 afebrile and maintaining oxygen saturation on room air. CONSTITUTIONAL: No apparent distress. HEENT: Head is normocephalic. Pupils are equal, round. Sclerae anicteric. Mucous membranes of the mouth are moist. No JVD. No carotid bruit. CHEST EXAMINATION: Lungs are clear to auscultation. No chest wall tenderness is noted on palpation or with deep breathing. HEART EXAMINATION: Regular rate and rhythm. S1, S2 heard. No murmurs, gallops or rub. ABDOMEN: Soft, nontender. EXTREMITIES: 2+ peripheral pulses, no lower extremity edema and no calf tenderness. NEUROLOGIC EXAMINATION: Patient is awake, alert and oriented x3. ASSESSMENT Paroxysmal atrial fibrillation with rapid ventricular rate, converted to sinus mechanism and has been maintaining that for the previous 12 days Bilateral pneumonia status post extubation Hypokalemia Severe pancytopenia with lowest platelet count being 7 Acute leukemia status post chemotherapy PLAN CHADS-VASC score is 1, she is not indicated to receive anti-coagulation. Discontinue eliquis and amiodarone. Continue beta blockers as previously ordered. She will require further outpatient monitoring to assess for any further episodes of afib. She does become symptomatic with afib so she has been advised to follow up in the office if these symptoms return at all. Once she is medically stable we may consider outpatient placement of loop recorder. Thank you kindly for this consultation. Nurse Practitioner note has been reviewed, I agree with a documented findings an d plan of care. Patient was seen and examined. Past Medical History Past Medical History: Cancer, Osteoarthritis (OA) Additional Past Medical History / Comment(s): AML History of Any Multi-Drug Resistant Organisms: None Reported Past Surgical History: Breast Surgery, Orthopedic Surgery Additional Past Surgical History / Comment(s): breast biopsy, arthroscopy left and right knee Past Anesthesia/Blood Transfusion Reactions: No Reported Reaction Past Psychological History: Anxiety Smoking Status: Never smoker Past Alcohol Use History: None Reported Past Drug Use History: None Reported - Past Family History Father Family Medical History: Cancer Mother Family Medical History: Diabetes Mellitus Medications and Allergies Home Medications Medication Instructions Recorded Confirmed Type PARoxetine [Paxil] 10 mg PO DAILY 12/17/18 07/03/21 History Multivit-Min/Iron/Folic/Lutein 1 tab PO DAILY 06/19/21 07/03/21 History [Centrum Silver Women Tablet] Acyclovir 400 mg PO BID #42 tablet 06/29/21 07/03/21 Rx Fluconazole [Diflucan] 100 mg PO DAILY #21 tab 06/29/21 07/03/21 Rx Levofloxacin [Levaquin] 500 mg PO DAILY 1 Days #21 tab 06/29/21 07/03/21 Rx Ondansetron [Zofran] 8 mg PO Q6HR PRN #45 tab 06/29/21 07/03/21 Rx Metoprolol Tartrate [Lopressor] 50 mg PO BID #60 tab 07/25/21 Rx Potassium Chloride ER [K-Dur 20] 20 meq PO DAILY #30 tab 07/25/21 Rx Zinc Sulfate [Orazinc] 220 mg PO DAILY #0 cap 07/25/21 Rx predniSONE [Deltasone] 20 mg PO DAILY #4 tab 07/25/21 Rx Allergies Allergy/AdvReac Type Severity Reaction Status Date / Time No Known Allergies Allergy Verified 07/24/21 10:07 Physical Exam Vitals: Vital Signs Temp Pulse Pulse Resp BP Pulse Ox 07/25/21 07:56 97.9 F 65 16 127/68 92 L 07/25/21 07:00 98.2 F 67 18 117/76 92 L 07/25/21 04:58 98.1 F 70 16 129/74 93 L 07/24/21 21:10 91 L 07/24/21 21:07 80 07/24/21 20:19 98.2 F 77 16 91 L 07/24/21 19:31 73 18 07/24/21 15:45 74 07/24/21 15:36 72 07/24/21 12:10 98.7 F 73 18 130/70 91 L 07/24/21 11:55 74 07/24/21 11:46 72 07/24/21 09:35 94 L Intake and Output 07/24/21 07/25/21 07/25/21 22:59 06:59 14:59 Intake Total 100 100 Balance 100 100 Intake: IV 100 Intake, IV Titration 100 Amount Acyclovir Sodium 500 mg 100 In Sodium Chloride 0.9% 100 ml @ 100 mls/hr IVPB Q8H [facility] Rx#:[id number] Other: Voiding Method Toilet Bedside Commode Weight 87.2 kg Results 07/25/21 05:49 07/25/21 05:49 Cardiac Enzymes 07/25/21 Range/Units 05:49 AST 46 H (14-36) U/L CBC 07/25/21 Range/Units 05:49 WBC 5.5 (3.8-10.6) k/uL RBC 3.13 L (3.80-5.40) m/uL Hgb 9.5 L (11.4-16.0) gm/dL Hct 29.0 L (34.0-46.0) % Plt Count 457 H (150-450) k/uL Comprehensive Metabolic Panel 07/25/21 Range/Units 05:49 Sodium 142 (137-145) mmol/L Potassium 2.8 L (3.5-5.1) mmol/L Chloride 106 (98-107) mmol/L Carbon Dioxide 33 H (22-30) mmol/L BUN 13 (7-17) mg/dL Creatinine 0.76 (0.52-1.04) mg/dL Glucose 85 (74-99) mg/dL Calcium 8.0 L (8.4-10.2) mg/dL AST 46 H (14-36) U/L ALT 25 (4-34) U/L Alkaline Phosphatase 93 (38-126) U/L Total Protein 5.1 L (6.3-8.2) g/dL Albumin 2.4 L (3.5-5.0) g/dL Current Medications Generic Name Dose Route Start Last Admin Trade Name Freq PRN Reason Stop Dose Admin Acetaminophen 650 mg 07/03/21 22:48 07/10/21 13:02 Acetaminophen Tab 325 Mg Tab PO 650 mg Q6HR PRN Administration Fever and/ or Pain Albuterol Sulfate 2.5 mg 07/11/21 04:50 07/24/21 21:07 Albuterol Nebulized 2.5 Mg/3 Ml INHALATION 2.5 mg RT-QID PRN Administration Shortness Of Breath Or Wheezing Apixaban 5 mg 07/25/21 21:00 Apixaban 5 Mg Tab PO BID [facility] Protocol Cholestyramine Resin 4 gm 07/10/21 10:00 07/25/21 08:57 Cholestyramine (With Sugar) 4 Gm Packet PO Not Given BID@1000,1800 [facility] Dicyclomine HCl 10 mg 07/03/21 15:53 07/06/21 08:48 Dicyclomine 10 Mg Cap PO 10 mg TID PRN Administration Dyspepsia Diphenhydramine HCl 25 mg 07/11/21 10:26 07/12/21 04:57 Diphenhydramine 50 Mg/Ml 1 Ml Vial IVP 25 mg Q6HR PRN Administration Allergy Symptoms Diphenoxylate HCl/Atropine 1 each 07/10/21 13:21 07/10/21 13:26 Diphenox-Atrop 2.5-0.025 Mg 1 Each Tab PO 1 each Q6HR PRN Administration Diarrhea Hydromorphone HCl 0.5 mg 07/14/21 16:15 Hydromorphone 0.5 Mg/0.5 Ml Syringe IVP Q3HR PRN Pain Acyclovir Sodium 500 mg/ 110 mls @ 100 mls/hr 07/22/21 16:00 07/24/21 23:54 Sodium Chloride IVPB 100 mls/hr Q8H ANJEL Administration Potassium Chloride 20 meq/ IV 100 mls @ 50 mls/hr 07/25/21 08:00 07/25/21 07:09 Solution IVPB 07/25/21 13:59 50 mls/hr Q2HR ANJEL Administration Insulin Aspart 0 unit 07/16/21 12:00 07/25/21 05:47 Insulin Aspart (Novolog) 100 Unit/Ml Vial SQ Not Given Q6HR [facility] Protocol Lorazepam 0.5 mg 07/13/21 10:13 07/20/21 06:59 Lorazepam 2 Mg/Ml Inj IV 0.5 mg Q4HR PRN Administration Anxiety Metoprolol Tartrate 25 mg 07/20/21 21:00 07/25/21 08:58 Metoprolol Tartrate 25 Mg Tab PO 25 mg BID ANJEL Administration Miscellaneous Information 1 each 07/11/21 18:59 Potassium Replacement Protocol 1 Each [facility] DA[place] PRN Per Protocol Protocol Miscellaneous Information 1 each 07/11/21 19:04 Magnesium Replacement Protocol 1 Each [facility] DAILY PRN Per Protocol Protocol Nystatin 500,000 unit 07/23/21 18:00 07/25/21 08:58 Nystatin 100,000 Unit/Ml Susp 500,000 Unit/5 Ml Cup PO 500,000 unit QID ANJEL Administration Ondansetron HCl 4 mg 07/03/21 15:09 07/10/21 13:26 Ondansetron 4 Mg/2 Ml Vial IVP 4 mg Q4HR PRN Administration Nausea And Vomiting Pantoprazole Sodium 40 mg 07/22/21 08:45 07/25/21 08:58 Pantoprazole 40 Mg Tablet PO 40 mg AC-BID ANJEL Administration Paroxetine HCl 10 mg 07/04/21 09:00 07/25/21 08:59 Paroxetine 10 Mg Tab PO 10 mg DAILY ANJEL Administration Prednisone 40 mg 07/22/21 10:00 07/25/21 08:58 Prednisone 20 Mg Tab PO 40 mg DAILY ANJEL Administration Sodium Bicarbonate 10 ml 07/03/21 18:00 07/25/21 08:59 Salt And Soda Mouthwash 1,000 Ml PO 10 ml QID ANJEL Administration Sodium Chloride 2 spray 07/09/21 16:55 Sodium Chloride 0.65% Nasal [place] 44 Ml Btl NASAL QID PRN Sinus Symptoms Zinc Sulfate 220 mg 07/11/21 16:15 07/25/21 08:59 Zinc Sulfate 220 Mg Cap PO 220 mg DAILY ANJEL Administration Intake and Output 07/24/21 07/25/21 07/25/21 22:59 06:59 14:59 Intake Total 100 100 Balance 100 100 Intake: IV 100 Intake, IV Titration 100 Amount Acyclovir Sodium 500 mg 100 In Sodium Chloride 0.9% 100 ml @ 100 mls/hr IVPB Q8H [facility] Rx#:[id number] Other: Voiding Method Toilet Bedside Commode Weight 87.2 kg 07/25/21 05:49 07/25/21 05:49
--- NOTE | 2021-07-25 12:08 | P.PN ---
Subjective Progress Note Date: 07/25/21 Principal diagnosis: Neutropenic sepsis The patient is seen today 07/25/2021 and follow-up on the regular medical floor. She is currently sitting up in bed. Awake and alert in no acute distress. Maintaining good O2 saturations in the 90s on room air. She's been afebrile. Hemodynamically stable. X-ray continues to show left perihilar right lower lobe infiltrates. Improved pulmonary vascular markings. Bronchial wash cultures revealed no growth. White count 5.5. Hemoglobin 9.5. Platelets 457. Sodium 142. Potassium 2.8. BUN 13. Creatinine 0.76. He did undergo bone marrow biopsy today. Objective - Vital Signs Vital signs: Vital Signs Temp 97.9 F 07/25/21 07:56 Pulse 65 07/25/21 07:56 Resp 16 07/25/21 07:56 BP 127/68 07/25/21 07:56 Pulse Ox 92 L 07/25/21 07:56 Intake & Output 07/24/21 07/25/21 07/25/21 18:59 06:59 18:59 Intake Total 100 100 Balance 100 100 Weight 88.5 kg 87.2 kg Intake: IV 100 Intake, IV Titration 100 Amount Acyclovir Sodium 500 mg 100 In Sodium Chloride 0.9% 100 ml @ 100 mls/hr IVPB Q8H [facility] Rx#:[id number] Other: Voiding Method Bedside Commode Toilet Toilet Bedside Commode Bedside Commode # Voids 1 ABP, PAP, CO, CI - Last Documented Arterial Blood Pressure 149/85 - Exam GENERAL EXAM: Alert, very pleasant 61-year-old female patient, on room air, comfortable in no apparent distress. HEAD: Normocephalic. EYES: Normal reaction of pupils, equal size. NOSE: Clear with pink turbinates. THROAT: No erythema or exudates. NECK: No masses, no JVD. CHEST: No chest wall deformity. LUNGS: Equal air entry with faint crackles in the posterior bases. CVS: S1 and S2 normal with no audible murmur, regular rhythm. ABDOMEN: No hepatosplenomegaly, normal bowel sounds, no guarding or rigidity. SPINE: No scoliosis or deformity SKIN: No rashes CENTRAL NERVOUS SYSTEM: No focal deficits, tone is normal in all 4 extremities. EXTREMITIES: There is no peripheral edema. No clubbing, no cyanosis. Peripheral pulses are intact. - Labs CBC & Chem 7: 07/25/21 05:49 07/25/21 05:49 Labs: Abnormal Lab Results - Last 24 Hours (Table) 07/24/21 07/24/21 07/24/21 Range/Units 12:09 18:05 23:56 RBC (3.80-5.40) m/uL Hgb (11.4-16.0) gm/dL Hct (34.0-46.0) % RDW (11.5-15.5) % Plt Count (150-450) k/uL Lymphocytes # (1.0-4.8) k/uL Retic Count (0.5-2.0) % Potassium (3.5-5.1) mmol/L Carbon Dioxide (22-30) mmol/L POC Glucose (mg/dL) 133 H 240 H 112 H (75-99) mg/dL Calcium (8.4-10.2) mg/dL AST (14-36) U/L Total Protein (6.3-8.2) g/dL Albumin (3.5-5.0) g/dL 07/25/21 07/25/21 Range/Units 05:49 05:49 RBC 3.13 L (3.80-5.40) m/uL Hgb 9.5 L (11.4-16.0) gm/dL Hct 29.0 L (34.0-46.0) % RDW 15.8 H (11.5-15.5) % Plt Count 457 H (150-450) k/uL Lymphocytes # 0.7 L (1.0-4.8) k/uL Retic Count 2.6 H (0.5-2.0) % Potassium 2.8 L (3.5-5.1) mmol/L Carbon Dioxide 33 H (22-30) mmol/L POC Glucose (mg/dL) (75-99) mg/dL Calcium 8.0 L (8.4-10.2) mg/dL AST 46 H (14-36) U/L Total Protein 5.1 L (6.3-8.2) g/dL Albumin 2.4 L (3.5-5.0) g/dL Microbiology - Last 24 Hours (Table) 07/11/21 15:00 Legionella Culture - Final Bronchial Washings - Random 07/11/21 15:00 Acid Fast Bacilli Smear - Final Bronchial Washings - Random Acid Fast Bacilli Culture - Preliminary Assessment and Plan Assessment: 1 acute bilateral pneumonia with rapid progression of bilateral pulmonary infiltrates and the patient currently has extensive bilateral airspace disease and coarse interstitial pulmonary infiltrates, consider opportunistic infections especially with her underlying immunosuppression. The bronchioloalveolar lavage has been negative thus far. PCP stain of been negative. Legionella urine antigen was negative. Lavage with viral screen of the bronchioloalveolar lavage has been negative. COVID 19 testing was negative. The patient's regular bacterial cultures and the fungal cultures are negative. She remains on broad- spectrum antibiotics. The patient had bronchoscopy 2. Cultures were all negative. The patient was extubated initially and she failed extubation she had to be intubated. She was ultimately extubated again on 07/19/2021. She was extubated to BiPAP. She is stable for now on oxygen at 4 L of Oxymizer nasal cannula. 2 acute hypoxic respiratory failure secondary to above, improving and the patient is currently on 4 L of oxygen by nasal cannula 3 shortness of breath secondary to but not limited to above mentioned pneumonia, improving hemoglobin 4 acute myeloid leukemia post induction chemotherapy, remains leukopenic, the white cell count is gradually improving, white cell count is improved 5 pancytopenia, with early signs of recovery of the bone marrow post induction chemotherapy in a patient with AML. Note that the patient stated count has normalized. 6 Afebrile to having episodic fever on multiple occasions last week. 7 electrolytes disturbance, being managed and replaced 8 diarrhea, stool for C. diff has been negative, no diarrhea 9 paroxysmal atrial fibrillation, current rhythm is sinus and the patient will be taken off the Cardizem drip. The current rhythm is sinus Plan: The patient was seen and evaluated by Dr. Rivera Chest x-ray and labs reviewed Cleared for discharge from the pulmonary standpoint Follow up in the office in 1-2 weeks' time I, the cosigning physician, performed a history & physical examination of the patient. Lungs sounds with crackles in the posterior bases. Maintaining good O2 saturations in the 90s on room air. I discussed the assessment and plan of care with my nurse practitioner, Gabriela Avery. I attest to the above note as dictated by her.
[2021-07-25 13:17] VITALS: BP 137/55; PULSE 64; TEMP 98.1
[2021-07-25 14:00] LABS: T4, Free (Free Thyroxine) 1.12 ng/dL (0.78-2.19)
--- NOTE | 2021-07-25 14:30 | PN ---
PROGRESS NOTE DATE OF SERVICE: 07/25/2021 REASON FOR FOLLOWUP: Febrile neutropenia and pneumonia. INTERVAL HISTORY: The patient is afebrile. The patient is feeling better, breathing comfortably on room air. Denies having any chest pain, shortness of breath. Occasional cough. No nausea, no vomiting. No abdominal pain or diarrhea. PHYSICAL EXAMINATION: Blood pressure 127/68 with a pulse of 65, temperature 97.9. She is 92% on room air. GENERAL DESCRIPTION: General description is a middle-aged female up in the chair in no distress. RESPIRATORY SYSTEM: Unlabored breathing. Decreased breath sounds at the bases. No wheeze. HEART: S1, S2. Regular rate and rhythm. ABDOMEN: Soft. No tenderness. LABS: Hemoglobin 9.5, white count 5.5, BUN of 13, creatinine 0.76. DIAGNOSTIC IMPRESSION AND PLAN: Patient with febrile neutropenia and concern for possible pneumonia. The patient's underlying pneumonia has been adequately treated. The patient is currently being monitored closely off antibiotic therapy. Continue supportive care. MMODL / IJN: [id number] /
--- NOTE | 2021-07-25 15:09 | P.DS ---
Providers Date of admission: 07/03/21 13:22 Expected date of discharge: 07/25/21 Attending physician: Pablito Forte Consults: 07/03/21 15:05 Consult Physician Routine Consulting Provider: Denise Marcano Consult Reason/Comments: Neutropenia Fever, Acute Leukemia, status induction Do you want consulting provider notified?: Yes 07/03/21 15:14 Consult Physician Routine Consulting Provider: Joshua Barajas Consult Reason/Comments: Medical Management Acute Leukemia Do you want consulting provider notified?: Yes 07/03/21 15:54 Consult Physician Routine Consulting Provider: Cortez Ragsdale Consult Reason/Comments: poss seizure activity in Dr Kelley office Do you want consulting provider notified?: Yes 07/10/21 07:27 Consult Physician Routine Consulting Provider: Felix Sanabria Consult Reason/Comments: Neutropenic fever, Pneumonia, worsening respiratory Do you want consulting provider notified?: Yes 07/20/21 15:38 Consult Physician Routine Consulting Provider: Isak Hernández Consult Reason/Comments: possible IPR Do you want consulting provider notified?: Yes 07/24/21 11:10 Consult Physician Routine Consulting Provider: Leonel Abdi Consult Reason/Comments: arrhythmia, duration of anticoagulation Do you want consulting provider notified?: Already Contacted Primary care physician: Pablito Forte - Discharge Diagnosis(es) (1) Neutropenic fever Current Visit: Yes Status: Resolved Priority: High (2) Pancytopenia due to antineoplastic chemotherapy Current Visit: Yes Status: Acute Priority: High (3) Respiratory failure Current Visit: Yes Status: Resolved Priority: High (4) AML (acute myeloid leukemia) Current Visit: Yes Status: Acute Priority: High Hospital Course: Admitted for neutropenic fever, sepsis s/p induction chemo for AML, severe pancytopenia requiring multiple PRBC and platelet transfusions. patient was mechanically ventilated for a period of time, her counts began to recover. She was extubated, required reintubation, was extubated again and has done very well since. She was tapered off oxygen yesterday. Steroids are tapering. She was placed on anticoagulation, amiodarone and beta elisha for arrhythmia secondary to sepsis. She is reevaluated by Cardiology, recommendation is to continue beta elisha for now, other meds can be stopped. Patient's potassium was low today, this was supplemented intravenously, Internal Medicine prescribed a few more doses for patient's to take at home. BMP on Saturday-Rx given to [facility]. Rx written for PICC line dressing change weekly and 10cc NS lline flush for each line 3xweek, given to [facility]. WBC is normal, antibiotic, antiviral, antifungal discontinued. She had a bone marrow biopsy and aspirate 07/25/21, Dr. Kelley, follow-up appointment next week to review results and see if patient is in remission. Patient was not complaining of any side effects, no fevers, oral irritation, appetite is fair to good, she is a little weak but she is moving around, denies significant shortness of breath, no dysuria, hematuria, diarrhea or constipation, swelling in legs. No complaints of any unrealistic pain or swelling at the site of the biopsy. She is very anxious to go home. Assessment: Well-developed, adequately nourished, no acute distress, A and O 4, oral mucosa free of thrush, lesions, S1, S2, no murmur, gallop or rub, regular rate and rhythm, bilateral breath sounds clear to auscultation, respiratory effort unlabored, abdomen is soft, nontender, bowel sounds positive, swelling in the legs, no visible rashes Pertinent Studies: CT of the brain without contrast- negative Right arm superficial thrombus around PICC line CT of the chest-patchy pneumonia Echo left ventricular ejection fraction - 50-55%, mitral regurgitation Procedures: Bronchoscopy Arterial line insertion bone marrow biopsy and aspirate Patient Condition at Discharge: Stable Plan - Discharge Summary Discharge Rx Participant: No New Discharge Prescriptions: New predniSONE [Deltasone] 20 mg PO DAILY #4 tab Metoprolol Tartrate [Lopressor] 50 mg PO BID #60 tab Zinc Sulfate [Orazinc] 220 mg PO DAILY #0 cap Potassium Chloride ER [K-Dur 20] 20 meq PO DAILY #30 tab Continue PARoxetine [Paxil] 10 mg PO DAILY Discontinued Levofloxacin [Levaquin] 500 mg PO DAILY 1 Days #21 tab Acyclovir 400 mg PO BID #42 tablet Fluconazole [Diflucan] 100 mg PO DAILY #21 tab No Action Multivit-Min/Iron/Folic/Lutein [Centrum Silver Women Tablet] 1 tab PO DAILY Ondansetron [Zofran] 8 mg PO Q6HR PRN #45 tab PRN Reason: Nausea Discharge Medication List PARoxetine [Paxil] 10 mg PO DAILY 12/17/18 [History] Multivit-Min/Iron/Folic/Lutein [Centrum Silver Women Tablet] 1 tab PO DAILY 06/19/21 [History] Ondansetron [Zofran] 8 mg PO Q6HR PRN #45 tab 06/29/21 [Rx] Metoprolol Tartrate [Lopressor] 50 mg PO BID #60 tab 07/25/21 [Rx] Potassium Chloride ER [K-Dur 20] 20 meq PO DAILY #30 tab 07/25/21 [Rx] Zinc Sulfate [Orazinc] 220 mg PO DAILY #0 cap 07/25/21 [Rx] predniSONE [Deltasone] 20 mg PO DAILY #4 tab 07/25/21 [Rx] Follow up Appointment(s)/Referral(s): Leonel Abdi MD [STAFF PHYSICIAN] - 3 Weeks (office will call patient withh appt time and date.) [facility], [REFERRING] - 1 Week Enedelia Kelley MD [STAFF PHYSICIAN] - 08/01/21 4:30 pm Ambulatory/Diagnostic Orders: Basic Metabolic Panel [LAB.AMB] Time Frame: 3 Days, Location: None Selected Complete Blood Count w/diff [LAB.AMB] Location: None Selected Activity/Diet/Wound Care/Special Instructions: [facility] care - [facility] will supply you with your PICC line supplies. Discharge Disposition: HOME WITH HOME HEALTH SERVICES Pending Studies Pending Results: Results of bone marrow biopsy and aspirate
--- NOTE | 2021-07-25 17:20 | P.PN ---
Subjective Progress Note Date: 07/25/21 (delayed charting seen at 0930) Principal diagnosis: fevers Patient is a 61-year-old female recently diagnosed with AML who started induction chemotherapy here during admission from 06/19 through 07/02. Repeat presented with neutropenic fevers. Subsequently diagnosed with pneumonia. Pulmonary and ID following, admitted to heme/onc. Bronch completed 07/11. All cultures are negative to date. Diflucan broadened to voriconzole on 07/11 and Levquin added. 07/12 patient went into A fib with RVR and was started on a cardizem gtt. 07/13 not able to come off Bipap and currently dependent. 07/14 intubated Patient seen and examined at bedside. No complaintss, formed stools, no shor tness of breath no difficulty swallowing General: no toxic, moderate distress, appears at stated age Derm: petchaia bilateral lower extremities resolved , multiple areas of ecchymosis, warm, dry Head: atraumatic, normocephalic, symmetric Eyes: EOMI, no lid lag, anicteric sclera Mouth: no lip lesion, mucus membranes moist, no thrush Cardiovascular: S1S2 reg, no murmur, positive posterior tibial pulse bilateral, Lungs: Decreased breath sounds bilateral, no conversational dyspnea, no accessory muscle use Abdominal: soft, nontender to palpation, no guarding, no appreciable organomegaly Ext: no gross muscle atrophy, trace edema, no contractures Neuro: with drawing to pain, breathing over the vent, opens eyes to sounds Psych: sedated on vetn Neutropenic fevers Acute myelogenous leukemia Pancytopenia, chemo induced Pneumonia Acute hypoxic respiratory failure, vent dependent ARDS Diarrhea Sepsis without septic shock P. A fib with RVR, currently in normal sinus rhythm Episode of tremors Moderate to severe MR Hypokalemia Hypomagnesemia Hypophosphatemia Hypocalcemia Medically optimized for discharge once completes potassium replacement. F/U BMP in 3 days, Potassium X 6 days, and metoprolol, 5 additional days of prednisone to complete taper. All placed in Discharge instructions. Will follow with Dr. Forte next week repeat bone marrow completed this morning and pending. Per cardio does not need eliquis on discharge. Hopefully can come off metoprolol soon if no additional episode of A fib Has completed antibiotics, antifungals, and antivirals. Discontinue Nystatin and cholecystermine. Objective - Vital Signs Vital signs: Vital Signs Temp 98.1 F 07/25/21 12:48 Pulse 64 07/25/21 12:48 Resp 16 07/25/21 12:48 BP 137/55 07/25/21 12:48 Pulse Ox 94 L 07/25/21 12:48 Intake & Output 07/24/21 07/25/21 07/25/21 18:59 06:59 18:59 Intake Total 100 100 Balance 100 100 Weight 88.5 kg 87.2 kg Intake: IV 100 Intake, IV Titration 100 Amount Acyclovir Sodium 500 mg 100 In Sodium Chloride 0.9% 100 ml @ 100 mls/hr IVPB Q8H [facility] Rx#:[id number] Other: Voiding Method Bedside Commode Toilet Toilet Bedside Commode Bedside Commode # Voids 1 ABP, PAP, CO, CI - Last Documented Arterial Blood Pressure 149/85 - Labs CBC & Chem 7: 07/25/21 05:49 07/25/21 05:49 Labs: Abnormal Lab Results - Last 24 Hours (Table) 07/24/21 07/24/21 07/25/21 Range/Units 18:05 23:56 05:49 RBC 3.13 L (3.80-5.40) m/uL Hgb 9.5 L (11.4-16.0) gm/dL Hct 29.0 L (34.0-46.0) % RDW 15.8 H (11.5-15.5) % Plt Count 457 H (150-450) k/uL Lymphocytes # 0.7 L (1.0-4.8) k/uL Retic Count 2.6 H (0.5-2.0) % Potassium (3.5-5.1) mmol/L Carbon Dioxide (22-30) mmol/L POC Glucose (mg/dL) 240 H 112 H (75-99) mg/dL Calcium (8.4-10.2) mg/dL AST (14-36) U/L Total Protein (6.3-8.2) g/dL Albumin (3.5-5.0) g/dL TSH (0.465-4.680) mIU/L 07/25/21 07/25/21 Range/Units 05:49 05:49 RBC (3.80-5.40) m/uL Hgb (11.4-16.0) gm/dL Hct (34.0-46.0) % RDW (11.5-15.5) % Plt Count (150-450) k/uL Lymphocytes # (1.0-4.8) k/uL Retic Count (0.5-2.0) % Potassium 2.8 L (3.5-5.1) mmol/L Carbon Dioxide 33 H (22-30) mmol/L POC Glucose (mg/dL) (75-99) mg/dL Calcium 8.0 L (8.4-10.2) mg/dL AST 46 H (14-36) U/L Total Protein 5.1 L (6.3-8.2) g/dL Albumin 2.4 L (3.5-5.0) g/dL TSH 7.580 H (0.465-4.680) mIU/L Microbiology - Last 24 Hours (Table) 07/11/21 15:00 Legionella Culture - Final Bronchial Washings - Random
[2021-07-25] MEDS ORDERED: APIXABAN 5 MG TAB PO SCH (21:00)
[2021-07-26] MEDS ORDERED: AMIODARONE 200 MG TAB PO SCH (09:00)
== END 2021-07-25 15:05 | disposition home health service (06) | DRG 870 ==
LOC: 5NMEDONC 13:22 → 2SICU 07-11 06:18 → 5NMEDONC 07-22 21:24
PROVIDERS: ADMIT Internal Medicine Hematology & Oncology; ATTEND Internal Medicine Hematology & Oncology
PROC: 30233N1 Transfusion of Nonautologous Red Blood Cells into Peripheral Vein, Percutaneous Approach (ICD-10-PCS; 2021-07-03)
PROC: 30233R1 Transfusion of Nonautologous Platelets into Peripheral Vein, Percutaneous Approach (ICD-10-PCS; 2021-07-04)
PROC: 0B9D7ZX Drainage of Right Middle Lung Lobe, Via Natural or Artificial Opening, Diagnostic (ICD-10-PCS; 2021-07-11)
PROC: 0BC58ZZ Extirpation of Matter from Right Middle Lobe Bronchus, Via Natural or Artificial Opening Endoscopic (ICD-10-PCS; 2021-07-11)
PROC: 5A0935A Assistance with Respiratory Ventilation, Less than 24 Consecutive Hours, High Flow/Velocity Cannula (ICD-10-PCS; 2021-07-12)
PROC: 5A09357 Assistance with Respiratory Ventilation, Less than 24 Consecutive Hours, Continuous Positive Airway Pressure (ICD-10-PCS; 2021-07-13)
PROC: 5A1955Z Respiratory Ventilation, Greater than 96 Consecutive Hours (ICD-10-PCS; principal; 2021-07-14)
PROC: 03HY32Z Insertion of Monitoring Device into Upper Artery, Percutaneous Approach (ICD-10-PCS; principal; 2021-07-14)
PROC: 4A133B1 Monitoring of Arterial Pressure, Peripheral, Percutaneous Approach (ICD-10-PCS; principal; 2021-07-14)
PROC: 0BH17EZ Insertion of Endotracheal Airway into Trachea, Via Natural or Artificial Opening (ICD-10-PCS; principal; 2021-07-14)
PROC: 4A133J1 Monitoring of Arterial Pulse, Peripheral, Percutaneous Approach (ICD-10-PCS; principal; 2021-07-14)
PROC: 3E0G76Z Introduction of Nutritional Substance into Upper GI, Via Natural or Artificial Opening (ICD-10-PCS; 2021-07-15)
PROC: 0DH67UZ Insertion of Feeding Device into Stomach, Via Natural or Artificial Opening (ICD-10-PCS; 2021-07-15)
PROC: 0BC98ZZ Extirpation of Matter from Lingula Bronchus, Via Natural or Artificial Opening Endoscopic (ICD-10-PCS; 2021-07-19)
PROC: 0B9H7ZX Drainage of Lung Lingula, Via Natural or Artificial Opening, Diagnostic (ICD-10-PCS; 2021-07-19)
PROC: 07DR3ZX Extraction of Iliac Bone Marrow, Percutaneous Approach, Diagnostic (ICD-10-PCS; 2021-07-25)

== ENCOUNTER 2021-08-16 09:12 | Inpatient (IN) | payer BC ==
[2021-08-16] MEDS ORDERED: PETROLATUM, WHITE OINT 50 GM TUBE TOPICAL PRN (09:24)
[2021-08-16] MEDS ORDERED: SALT AND SODA MOUTHWASH 1,000 ML PO PRN (09:29)
[2021-08-16] MEDS ORDERED: SODIUM CHLORIDE 0.9% 1,000 ML IV SCH (09:45)
[2021-08-16] MEDS ORDERED: LIDOCAINE 1% INJ 10MG/ML (20 ML MDV) ONE (10:36)
[2021-08-16] MEDS ORDERED: LIDOCAINE 1% INJ 10MG/ML (20 ML MDV) SQ ONE (11:06)
[2021-08-16 11:17] LABS: Anisocytosis Slight; Basophils % (A) 0 %; Eosinophils # (A) 0.3 k/uL (0-0.7); Eosinophils % (A) 6 %; HCT 34.6 % (34.0-46.0); HGB 12.3 gm/dL (11.4-16.0); Lymphocytes # (A) 0.5 k/uL (1.0-4.8); Lymphocytes % (A) 11 %; MCH 32.8 pg (25.0-35.0); MCHC 35.5 g/dL (31.0-37.0); MCV 92.4 fL (80.0-100.0); Mean Platelet Volume 8.4; Monocytes # (A) 0.5 k/uL (0-1.0); Monocytes % (A) 10 %; Neutrophils # (A) 3.5 k/uL (1.3-7.7); Neutrophils % (A) 71 %; RBC 3.74 m/uL (3.80-5.40); RDW 17.3 % (11.5-15.5); WBC 4.9 k/uL (3.8-10.6)
[2021-08-16 11:19] LABS: Platelet Count 151 k/uL (150-450)
[2021-08-16 11:21] LABS: ALT 35 U/L (4-34); AST 45 U/L (14-36); African American GFR (CKD) 83 (>60 ml/min/1.73 sqM); Albumin 3.9 g/dL (3.5-5.0); Albumin/Globulin Ratio 1.3; Alkaline Phosphatase 86 U/L (38-126); Anion Gap 7 mmol/L; Blood Urea Nitrogen 13 mg/dL (7-17); Calcium 9.8 mg/dL (8.4-10.2); Carbon Dioxide 30 mmol/L (22-30); Chloride 103 mmol/L (98-107); Globulin 3.1 g/dL; Glucose 117 mg/dL (74-99); Non-African American GFR(CKD) 72 (>60 ml/min/1.73 sqM); Phosphorus 3.9 mg/dL (2.5-4.5); Sodium 140 mmol/L (137-145); Total Bilirubin 0.6 mg/dL (0.2-1.3); Uric Acid 5.4 mg/dL (3.7-7.4)
[2021-08-16 11:22] LABS: Prothrombin Time 10.8 sec (9.0-12.0)
[2021-08-16] MEDS: SALT AND SODA MOUTHWASH 1,000 ML PO SCH ×3 (12:15→20:09)
[2021-08-16] MEDS: SODIUM CHLORIDE 0.9% 1,000 ML IV SCH ×2 (12:17→20:10)
[2021-08-16] MEDS: prednisoLONE ACETATE 1% OPHTH DROPS 5 ML BTL BOTH EYES SCH ×3 (12:17→20:10)
[2021-08-16] MEDS: FAMOTIDINE 20 MG/2 ML VIAL IVP SCH (12:18)
[2021-08-16] MEDS: ONDANSETRON 16 MG in SODIUM CHLORIDE 0.9% 50 ML IVPB SCH (12:18)
[2021-08-16] MEDS: DEXAMETHASONE SOD PHOSPHATE 10 MG/ML 1 ML VIAL IV SCH (12:18)
[2021-08-16] MEDS: SODIUM CHLORIDE 0.9% IV SCH (13:28)
[2021-08-16] MEDS: CYTARABINE IV SCH (13:28)
[2021-08-16] MEDS ORDERED: SENNOSIDES-DOCUSATE SODIUM 1 EACH TAB PO PRN (13:53)
[2021-08-16] MEDS ORDERED: polyethylene glycoL 3350 17 GM POWD.PACK PO PRN (13:53)
[2021-08-16] MEDS ORDERED: LOPERAMIDE 2 MG CAP PO PRN (13:53)
--- NOTE | 2021-08-16 14:02 | P.HPIM ---
History of Present Illness H&P Date: 08/16/21 Chief Complaint: AML admit for 1st consolidation chemotherapy Mrs. Perrin is a very pleasant 61-year-old female who we saw in end of May 2021 regarding sudden onset macrocytic anemia and thrombocytopenia, her labs had been normal up until 06/07 on routine lab drawn by her PCP. She had fever when seen at her PCP ofc and was sent to ER for garner culture workup, IV antibiotics and evaluation. Patient reported 12lb wt loss, declining energy levels and decreased stamina in the last few weeks. She was Covid negative. Iron studies significantly elevated (this was prior to transfusion), thyroid studies were normal, LDH elevated 438. MCV 109.7, renal function is normal. Hemoglobin 5.8 on admission, platelet count 38,000. Patient has had no other acute changes in her health, no other complaints. She received her second covid vaccine 04/07/21. She had BM bx and aspirate 06/21/21, AML diagnosis. She was initiated immediately on induction chemo with 7+3 regimen. She required intubation and extensive supportive care, transfusions. She recovered nicely, had f/u BM Bx and asp 07/25 revealing no ressidual AML, cytogenetics negative, NGS pending. 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 She denies fever, chills, oral irritation, N,V, cough, chest pain, abd pain, acute changes in bowel or bladder, swelling, bleeding, she is fully ambulatory, feels very good! Review of Systems 14 point ROS is neg except as stated in HPI Past Medical History Past Medical History: Cancer, Osteoarthritis (OA) Additional Past Medical History / Comment(s): AML History of Any Multi-Drug Resistant Organisms: None Reported Past Surgical History: Breast Surgery, Orthopedic Surgery Additional Past Surgical History / Comment(s): breast biopsy, arthroscopy left and right knee Past Anesthesia/Blood Transfusion Reactions: No Reported Reaction Past Psychological History: Anxiety Smoking Status: Never smoker Past Alcohol Use History: None Reported Past Drug Use History: None Reported - Past Family History Father Family Medical History: Cancer Mother Family Medical History: Diabetes Mellitus Medications and Allergies Home Medications Medication Instructions Recorded Confirmed Type PARoxetine [Paxil] 10 mg PO DAILY 12/17/18 08/16/21 History Potassium Chloride ER [K-Dur 20] 20 meq PO DAILY #30 tab 07/25/21 08/16/21 Rx Metoprolol Tartrate [Lopressor] 25 mg PO BID 08/16/21 08/16/21 History Allergies Allergy/AdvReac Type Severity Reaction Status Date / Time No Known Allergies Allergy Verified 08/16/21 10:23 Physical Exam - Constitutional General appearance: average body habitus, cooperative, no acute distress - EENT Eyes: anicteric sclerae, EOMI, normal appearance ENT: no hard of hearing, hearing grossly normal, no NA/AT, normal oropharynx, no other, no pharyngeal erythema, no thrush, no tonsillar exudates, no tonsillar swelling - Neck Neck: no lymphadenopathy, normal ROM - Respiratory Respiratory: bilateral: CTA - Cardiovascular Rhythm: regular Heart sounds: normal: S1, S2 Abnormal Heart Sounds: no systolic murmur, no diastolic murmur, no rub, no S3 Gallop, no S4 Gallop, no click, no other leg Peripheral Edema: bilateral: None - Gastrointestinal General gastrointestinal: no absent bowel sounds, no decreased bowel sounds, no distended, no hepatomegaly, no hyperactive bowel sounds, normal bowel sounds, no organomegaly, no rigid, no scaphoid, soft, no splenomegaly, no tenderness, no umbilical hernia, no ventral hernia - Integumentary Integumentary: normal - Neurologic Neurologic: CNII-XII intact - Musculoskeletal Musculoskeletal: strength equal bilaterally - Psychiatric Psychiatric: A&O x's 3, appropriate affect, intact judgment & insight Results CBC & Chem 7: 08/16/21 10:29 08/16/21 10:29 Thrombosis Risk Factor Assmnt - DVT/VTE Prophylaxis DVT/VTE Prophylaxis: Pharmacologic Prophylaxis ordered Assessment and Plan (1) AML (acute myeloid leukemia) Narrative/Plan: Admit for 1st consolidation treatment for AML Steroid eye drops PICC placement Supportive meds Regular diet QID ambulation [place] fluids Labs daily Internal Medicine consulted for medical management Current Visit: Yes Status: Acute Priority: High Code(s): C92.00 - ACUTE MYELOBLASTIC LEUKEMIA, NOT HAVING ACHIEVED REMISSION SNOMED Code(s): 92864235 Plan: Doctor attests: I performed a history and physical examination of this patient, developed impression and plan of care, discussed with dictator. I agree with dictators note, documented as a scribe.
--- NOTE | 2021-08-16 17:09 | P.CONS ---
History of Present Illness - Reason for Consult Consult date: 08/16/21 - Chief Complaint Med management - History of Present Illness 61 year old woman with history of AML, parox atrial fibrillation, mood disorder presented for chemotherapy. Medicine consulted for medical management by onc team. Pt is s/p induction chemo with BMBx demonstrating remission with good cytogenetics. Pt is here for round 1 of consolidation therapy with cytarabine via oncology. Previously had complicated hospital course during induction in which patient became pancytopenic with septic shock and respiratory failure, however, blood counts and clinical status gradually improved to near baseline prior to discharge home. Patient has no complaints at this time. Denies f/c, n/v, cp, palps, cough, dyspnea, abd pain, diarrhea, constipation, numbness/weakness of extremities. Review of Systems All Systems reviewed and pertinent positives and negatives noted in HPI, all other symptoms are negative Past Medical History Past Medical History: Cancer, Osteoarthritis (OA) Additional Past Medical History / Comment(s): AML History of Any Multi-Drug Resistant Organisms: None Reported Past Surgical History: Breast Surgery, Orthopedic Surgery Additional Past Surgical History / Comment(s): breast biopsy, arthroscopy left and right knee Past Anesthesia/Blood Transfusion Reactions: No Reported Reaction Past Psychological History: Anxiety Smoking Status: Never smoker Past Alcohol Use History: None Reported Past Drug Use History: None Reported - Past Family History Father Family Medical History: Cancer Mother Family Medical History: Diabetes Mellitus Medications and Allergies Home Medications Medication Instructions Recorded Confirmed Type PARoxetine [Paxil] 10 mg PO DAILY 12/17/18 08/16/21 History Potassium Chloride ER [K-Dur 20] 20 meq PO DAILY #30 tab 07/25/21 08/16/21 Rx Metoprolol Tartrate [Lopressor] 25 mg PO BID 08/16/21 08/16/21 History Allergies Allergy/AdvReac Type Severity Reaction Status Date / Time No Known Allergies Allergy Verified 08/16/21 10:23 Physical Exam Osteopathic Statement: *. No significant issues noted on an osteopathic structural exam other than those noted in the History and Physical/Consult. Vitals: Vital Signs Temp Pulse Resp BP Pulse Ox 08/16/21 12:15 98.5 F 78 18 130/84 98 Intake and Output 08/16/21 08/16/21 08/16/21 06:59 14:59 22:59 Other: Weight 79.379 kg Gen: awake, alert HEENT: normocephalic, atraumatic, good hearing acuity, moist mucous membranes Resp: good air exchange, breathing comfortably with no accessory muscle use, clear to auscultation bilaterally without wheezes CVS: good distal perfusion x 4, regular rate and rhythm without murmurs GI: soft, NTTP, ND : no SPT, no CVAT, putnam catheter not present MSK: no pitting edema, no clubbing Neuro: non-focal, moving all extremities Psych: cooperative, euthymic mood Results CBC & Chem 7: 08/16/21 10:29 08/16/21 10:29 Labs: Abnormal Lab Results - Last 24 Hours (Table) 08/16/21 08/16/21 Range/Units 10:29 10:29 RBC 3.74 L (3.80-5.40) m/uL RDW 17.3 H (11.5-15.5) % Lymphocytes # 0.5 L (1.0-4.8) k/uL Glucose 117 H (74-99) mg/dL AST 45 H (14-36) U/L ALT 35 H (4-34) U/L Assessment and Plan Assessment: Paroxysmal atrial fibrillation Mood disorder -Continue home metoprolol -Continue paroxetine -Monitor on telemetry AML -Management per primary team -Daily CBC with differential -Daily LFTs Patient is a 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
[2021-08-17] MEDS: SALT AND SODA MOUTHWASH 1,000 ML PO SCH ×6 (00:56→23:40)
[2021-08-17] MEDS: SODIUM CHLORIDE 0.9% IV SCH (01:56)
[2021-08-17] MEDS: CYTARABINE IV SCH (01:56)
[2021-08-17 06:49] LABS: Anisocytosis Slight; Basophils % (A) 0 %; Eosinophils % (A) 0 %; HCT 29.8 % (34.0-46.0); HGB 10.1 gm/dL (11.4-16.0); Lymphocytes # (A) 0.2 k/uL (1.0-4.8); Lymphocytes % (A) 2 %; MCH 32.4 pg (25.0-35.0); MCHC 33.7 g/dL (31.0-37.0); MCV 96.1 fL (80.0-100.0); Mean Platelet Volume 8.6; Monocytes # (A) 0.5 k/uL (0-1.0); Monocytes % (A) 6 %; Neutrophils # (A) 8.1 k/uL (1.3-7.7); Neutrophils % (A) 91 %; Platelet Count 109 k/uL (150-450); RDW 16.5 % (11.5-15.5); WBC 8.9 k/uL (3.8-10.6)
[2021-08-17 07:03] LABS: ALT 24 U/L (4-34); AST 30 U/L (14-36); African American GFR (CKD) >90 (>60 ml/min/1.73 sqM); Albumin 3.1 g/dL (3.5-5.0); Albumin/Globulin Ratio 1.1; Alkaline Phosphatase 68 U/L (38-126); Anion Gap 8 mmol/L; Blood Urea Nitrogen 15 mg/dL (7-17); Calcium 9.2 mg/dL (8.4-10.2); Carbon Dioxide 24 mmol/L (22-30); Chloride 110 mmol/L (98-107); Globulin 2.8 g/dL; Glucose 153 mg/dL (74-99); Magnesium 1.7 mg/dL (1.6-2.3); Non-African American GFR(CKD) 82 (>60 ml/min/1.73 sqM); Phosphorus 3.9 mg/dL (2.5-4.5); Potassium 4.3 mmol/L (3.5-5.1); Sodium 142 mmol/L (137-145); Total Bilirubin 0.4 mg/dL (0.2-1.3); Total Protein 5.9 g/dL (6.3-8.2); Uric Acid 5.7 mg/dL (3.7-7.4)
[2021-08-17] MEDS: prednisoLONE ACETATE 1% OPHTH DROPS 5 ML BTL BOTH EYES SCH ×4 (07:19→21:30)
--- NOTE | 2021-08-17 12:06 | IR ---
EXAMINATION TYPE: IR cvc insert >=5 years DATE OF EXAM: 08/17/2021 COMPARISON: NONE CLINICAL HISTORY: AML Needs long-term intravenous access for chemotherapy. PROCEDURE: Hand hygiene obtained with soap and water and alcohol-based hand rub. After informed consent, the skin overlying the right brachial vein was localized with ultrasound and noted to be compressible and patent. An ultrasound image was obtained and submitted on the patient's chart. The overlying skin was prepped and draped and Lidocaine was used for local anesthesia. A sk in binh was made with a scalpel. Access was gained to the vein under ultrasound guidance with a 21 g auge needle and a 0.018 inch wire was advanced. Access site was dilated with Peel-Away sheath and ca theter tailored to the appropriate length and advanced such that the distal tip is at the cavoatrial junction. Spot image was obtained verifying placement. Catheter was fixed to the skin and a sterile dressing was placed following hemostasis. Catheter was aspirated and flushed with saline. Patient was discharged in stable condition without complication.Maximal barrier technique is utilized. Ultra sound image is documented on the chart. Ultrasound used with sterile technique. Fluoro time and fluoroscopic images submitted to document procedure: 17 intraoperative C-arm images, 0.1 minutes fluoroscopy time IMPRESSION: STATUS POST ULTRASOUND AND FLUOROSCOPIC GUIDED PICC LINE PLACEMENT, READY FOR USE. THIS PROCEDURE WAS PERFORMED BY THE UNDERSIGNED.
--- NOTE | 2021-08-17 12:31 | P.PN ---
Subjective Progress Note Date: 08/17/21 No new complaints. Tolerating chemo well. No n/v, pain. No f/c. Good appetite. Objective - Vital Signs Vital signs: Vital Signs Temp 98.2 F 08/17/21 12:00 Pulse 79 08/17/21 12:00 Resp 18 08/17/21 12:00 BP 115/67 08/17/21 12:00 Pulse Ox 98 08/17/21 12:00 Intake & Output 08/16/21 08/17/21 08/17/21 18:59 06:59 18:59 Intake Total 500 Balance 500 Weight 79.379 kg Intake: Intake, IV Titration 500 Amount Sodium Chloride 0.9% 1, 500 000 ml @ 100 mls/hr IV . Q10H [facility] Rx#:[id number] Other: Voiding Method Toilet # Voids 2 2 - Exam Gen: awake, alert HEENT: normocephalic, atraumatic, good hearing acuity, moist mucous membranes Resp: good air exchange, breathing comfortably with no accessory muscle use, c lear to auscultation bilaterally without wheezes CVS: good distal perfusion x 4, regular rate and rhythm without murmurs GI: soft, NTTP, ND : no SPT, no CVAT, putnam catheter not present MSK: no pitting edema, no clubbing Neuro: non-focal, moving all extremities Psych: cooperative, euthymic mood - Labs CBC & Chem 7: 08/17/21 05:47 08/17/21 05:47 Labs: Abnormal Lab Results - Last 24 Hours (Table) 08/17/21 08/17/21 Range/Units 05:47 05:47 RBC 3.10 L (3.80-5.40) m/uL Hgb 10.1 L (11.4-16.0) gm/dL Hct 29.8 L (34.0-46.0) % RDW 16.5 H (11.5-15.5) % Plt Count 109 L (150-450) k/uL Neutrophils # 8.1 H (1.3-7.7) k/uL Lymphocytes # 0.2 L (1.0-4.8) k/uL Chloride 110 H (98-107) mmol/L Glucose 153 H (74-99) mg/dL Total Protein 5.9 L (6.3-8.2) g/dL Albumin 3.1 L (3.5-5.0) g/dL Assessment and Plan Assessment: Paroxysmal atrial fibrillation Mood disorder -Continue home metoprolol -Continue paroxetine -Monitor on telemetry AML -Management per primary team -Daily CBC with differential -Daily LFTs Patient 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
[2021-08-17] MEDS: SODIUM CHLORIDE 0.9% 1,000 ML IV SCH ×2 (12:44→17:16)
[2021-08-17] MEDS: PARoxetine 10 MG TAB PO SCH (13:14)
--- NOTE | 2021-08-17 13:21 | P.PN ---
Subjective Progress Note Date: 08/17/21 Principal diagnosis: AML, admitted for first consolidation treatment In follow-up today patient denies fevers, sweats, oral irritation, difficulty swallowing, painful swallowing, indigestion, heartburn, cough, shortness of breath, palpitations in the chest, acute changes in bowel or bladder habits, swelling, rash or puritis. She denies any eye pain, redness, vision changes or irritation. Objective - Vital Signs Vital signs: Vital Signs Temp 98.2 F 08/17/21 12:00 Pulse 79 08/17/21 12:00 Resp 18 08/17/21 12:00 BP 115/67 08/17/21 12:00 Pulse Ox 98 08/17/21 12:00 Intake & Output 08/16/21 08/17/21 08/17/21 18:59 06:59 18:59 Intake Total 500 Balance 500 Weight 79.379 kg Intake: Intake, IV Titration 500 Amount Sodium Chloride 0.9% 1, 500 000 ml @ 100 mls/hr IV . Q10H [facility] Rx#:[id number] Other: Voiding Method Toilet # Voids 2 2 - Constitutional General appearance: Present: average body habitus, cooperative, no acute distress - EENT Eyes: Present: anicteric sclerae, EOMI ENT: Present: hearing grossly normal, normal oropharynx - Respiratory Respiratory: bilateral: CTA - Cardiovascular Rhythm: regular Heart sounds: normal: S1, S2 Abnormal Heart Sounds: Absent: systolic murmur, diastolic murmur, rub, S3 Gallop, S4 Gallop, click, other - Peripheral edema leg Peripheral Edema: bilateral: None - Gastrointestinal General gastrointestinal: Present: normal bowel sounds, soft - Integumentary Integumentary: Present: normal - Neurologic Neurologic: Present: CNII-XII intact - Musculoskeletal Musculoskeletal: Present: strength equal bilaterally - Psychiatric Psychiatric: Present: A&O x's 3, appropriate affect, intact judgment & insight - Labs CBC & Chem 7: 08/17/21 05:47 08/17/21 05:47 Labs: Abnormal Lab Results - Last 24 Hours (Table) 08/17/21 08/17/21 Range/Units 05:47 05:47 RBC 3.10 L (3.80-5.40) m/uL Hgb 10.1 L (11.4-16.0) gm/dL Hct 29.8 L (34.0-46.0) % RDW 16.5 H (11.5-15.5) % Plt Count 109 L (150-450) k/uL Neutrophils # 8.1 H (1.3-7.7) k/uL Lymphocytes # 0.2 L (1.0-4.8) k/uL Chloride 110 H (98-107) mmol/L Glucose 153 H (74-99) mg/dL Total Protein 5.9 L (6.3-8.2) g/dL Albumin 3.1 L (3.5-5.0) g/dL Assessment and Plan (1) AML (acute myeloid leukemia) Narrative/Plan: Admit for 1st consolidation treatment for AML Steroid eye drops-reinforced the importance of PICC placement Supportive meds, when necessary medications for constipation, diarrhea, nausea Regular diet QID ambulation [place] fluids Labs daily Internal Medicine consulted for medical management We reviewed the results of her bone marrow biopsy from 07/25, no residual disease, cytogenetics are negative. All results will be cc to Dr. Arevalo in anticipation of planning for transplant if he feels patient is an appropriate candidate now. Current Visit: Yes Status: Acute Priority: High Code(s): C92.00 - ACUTE MYELOBLASTIC LEUKEMIA, NOT HAVING ACHIEVED REMISSION SNOMED Code(s): 98957583 Plan: Doctor attests: I performed a history and physical examination of this patient, developed impression and plan of care, discussed with dictator. I agree with dictators note, documented as a scribe.
[2021-08-17] MEDS: METOPROLOL TARTRATE 25 MG TAB PO SCH ×2 (13:24→20:28)
[2021-08-18] MEDS: SODIUM CHLORIDE 0.9% 1,000 ML IV SCH ×3 (02:04→21:01)
[2021-08-18] MEDS: SALT AND SODA MOUTHWASH 1,000 ML PO SCH ×4 (06:00→21:01)
[2021-08-18 06:08] LABS: Anisocytosis Slight; Basophils % (A) 0 %; Eosinophils # (A) 0.1 k/uL (0-0.7); Eosinophils % (A) 1 %; HCT 28.2 % (34.0-46.0); HGB 9.7 gm/dL (11.4-16.0); Lymphocytes # (A) 0.3 k/uL (1.0-4.8); Lymphocytes % (A) 5 %; MCH 32.5 pg (25.0-35.0); MCHC 34.5 g/dL (31.0-37.0); MCV 94.2 fL (80.0-100.0); Mean Platelet Volume 8.9; Monocytes # (A) 0.3 k/uL (0-1.0); Monocytes % (A) 5 %; Neutrophils # (A) 5.1 k/uL (1.3-7.7); Neutrophils % (A) 88 %; RBC 2.99 m/uL (3.80-5.40); RDW 17.7 % (11.5-15.5); WBC 5.8 k/uL (3.8-10.6)
[2021-08-18 06:16] LABS: Platelet Count 98 k/uL (150-450)
[2021-08-18] MEDS: PARoxetine 10 MG TAB PO SCH (07:57)
[2021-08-18] MEDS: METOPROLOL TARTRATE 25 MG TAB PO SCH ×2 (07:57→21:00)
[2021-08-18] MEDS: prednisoLONE ACETATE 1% OPHTH DROPS 5 ML BTL BOTH EYES SCH ×4 (07:58→21:01)
[2021-08-18] MEDS ORDERED: PARoxetine 10 MG TAB PO SCH (09:00)
--- NOTE | 2021-08-18 13:02 | P.PN ---
Subjective Progress Note Date: 08/18/21 Pt is doing well today, no acute complaints. Has slight rash on cheek, but this is not distressful. Labs show pancytopenia. Objective - Vital Signs Vital signs: Vital Signs Temp 98.1 F 08/18/21 12:00 Pulse 70 08/18/21 12:00 Resp 18 08/18/21 12:00 BP 126/78 08/18/21 12:00 Pulse Ox 97 08/18/21 12:00 Intake & Output 08/17/21 08/18/21 08/18/21 18:59 06:59 18:59 Intake Total 1000 500 Balance 1000 500 Intake: Intake, IV Titration 1000 500 Amount Sodium Chloride 0.9% 1, 1000 500 000 ml @ 100 mls/hr IV . Q10H [facility] Rx#:[id number] Other: Voiding Method Toilet # Voids 1 - Exam Gen: awake, alert HEENT: normocephalic, atraumatic, good hearing acuity, moist mucous membranes Resp: good air exchange, breathing comfortably with no accessory muscle use, clear to auscultation bilaterally without wheezes CVS: good distal perfusion x 4, regular rate and rhythm without murmurs GI: soft, NTTP, ND : no SPT, no CVAT, putnam catheter not present MSK: no pitting edema, no clubbing Neuro: non-focal, moving all extremities Psych: cooperative, euthymic mood - Labs CBC & Chem 7: 08/18/21 04:28 08/17/21 05:47 Labs: Abnormal Lab Results - Last 24 Hours (Table) 08/18/21 Range/Units 04:28 RBC 2.99 L (3.80-5.40) m/uL Hgb 9.7 L (11.4-16.0) gm/dL Hct 28.2 L (34.0-46.0) % RDW 17.7 H (11.5-15.5) % Plt Count 98 L (150-450) k/uL Lymphocytes # 0.3 L (1.0-4.8) k/uL Assessment and Plan Assessment: Paroxysmal atrial fibrillation Mood disorder -Continue home metoprolol -Continue paroxetine -Monitor on telemetry AML -Management per primary team -Daily CBC with differential -Daily LFTs 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
[2021-08-18] MEDS: FAMOTIDINE 20 MG/2 ML VIAL IVP SCH (14:26)
[2021-08-18] MEDS: ONDANSETRON 16 MG in SODIUM CHLORIDE 0.9% 50 ML IVPB SCH (14:27)
[2021-08-18] MEDS: DEXAMETHASONE SOD PHOSPHATE 10 MG/ML 1 ML VIAL IV SCH (14:30)
[2021-08-18] MEDS: CYTARABINE IV SCH (15:00)
[2021-08-18] MEDS: SODIUM CHLORIDE 0.9% IV SCH (15:00)
[2021-08-18 17:09] LABS: African American GFR (CKD) 92.9 (60.0-200.0); Albumin 3.4 g/dL (3.80-4.90); Albumin/Globulin Ratio 1.7 (1.60-3.17); Anion Gap 6.7 mmol/L (4.00-12.00); BUN/Creat Ratio 22.5 Ratio (12.00-20.00); Calcium 8.3 mg/dL (8.7-10.3); Carbon Dioxide 26.3 mmol/L (21.6-31.8); Non-African American GFR(CKD) 80.1 (60.0-200.0); Potassium 3.7 mmol/L (3.5-5.5); Total Bilirubin 0.4 mg/dL (0.3-1.2); Total Protein 5.4 g/dL (6.2-8.2)
[2021-08-18] MEDS ORDERED: LORazepam 0.5 MG TAB PO PRN (20:43)
--- NOTE | 2021-08-18 20:51 | P.PN ---
Subjective Progress Note Date: 08/18/21 Principal diagnosis: AML tolerating chemo well, afebrile, no nausea. Objective - Vital Signs Vital signs: Vital Signs Temp 98.1 F 08/18/21 12:00 Pulse 70 08/18/21 12:00 Resp 18 08/18/21 12:00 BP 126/78 08/18/21 12:00 Pulse Ox 97 08/18/21 12:00 Intake & Output 08/17/21 08/18/21 08/18/21 18:59 06:59 18:59 Intake Total 1000 500 Balance 1000 500 Intake: Intake, IV Titration 1000 500 Amount Sodium Chloride 0.9% 1, 1000 500 000 ml @ 100 mls/hr IV . Q10H [facility] Rx#:[id number] Other: Voiding Method Toilet # Voids 1 - Constitutional General appearance: Present: cooperative, no acute distress - EENT Eyes: Present: EOMI, PERRLA ENT: Present: NA/AT - Neck Neck: Present: normal ROM - Respiratory Respiratory: bilateral: CTA - Cardiovascular Rhythm: regular Heart sounds: normal: S1, S2 - Gastrointestinal General gastrointestinal: Present: normal bowel sounds, soft - Integumentary Integumentary: Present: pale - Neurologic Neurologic: Present: CNII-XII intact - Musculoskeletal Musculoskeletal: Present: generalized weakness, strength equal bilaterally - Psychiatric Psychiatric: Present: A&O x's 3, appropriate affect, intact judgment & insight - Labs CBC & Chem 7: 08/18/21 04:28 08/18/21 04:28 Labs: Abnormal Lab Results - Last 24 Hours (Table) 08/18/21 Range/Units 04:28 RBC 2.99 L (3.80-5.40) m/uL Hgb 9.7 L (11.4-16.0) gm/dL Hct 28.2 L (34.0-46.0) % RDW 17.7 H (11.5-15.5) % Plt Count 98 L (150-450) k/uL Lymphocytes # 0.3 L (1.0-4.8) k/uL
[2021-08-19] MEDS: SALT AND SODA MOUTHWASH 1,000 ML PO SCH ×5 (00:32→21:17)
[2021-08-19] MEDS: CYTARABINE IV SCH (02:50)
[2021-08-19] MEDS: SODIUM CHLORIDE 0.9% IV SCH (02:50)
[2021-08-19] MEDS: SODIUM CHLORIDE 0.9% 1,000 ML IV SCH ×2 (05:46→15:47)
[2021-08-19 06:42] LABS: Anisocytosis Slight; Basophils % (A) 0 %; Eosinophils % (A) 0 %; HCT 26.8 % (34.0-46.0); Lymphocytes # (A) 0.1 k/uL (1.0-4.8); Lymphocytes % (A) 3 %; MCH 31.9 pg (25.0-35.0); MCHC 33.7 g/dL (31.0-37.0); MCV 94.7 fL (80.0-100.0); Mean Platelet Volume 8.3; Monocytes # (A) 0.1 k/uL (0-1.0); Monocytes % (A) 2 %; Neutrophils # (A) 4.9 k/uL (1.3-7.7); Neutrophils % (A) 96 %; Platelet Count 88 k/uL (150-450); RBC 2.83 m/uL (3.80-5.40); RDW 16.4 % (11.5-15.5); WBC 5.2 k/uL (3.8-10.6)
[2021-08-19 06:51] LABS: ALT 22 U/L (4-34); AST 25 U/L (14-36); African American GFR (CKD) >90 (>60 ml/min/1.73 sqM); Albumin 2.9 g/dL (3.5-5.0); Albumin/Globulin Ratio 1.1; Alkaline Phosphatase 62 U/L (38-126); Anion Gap 5 mmol/L; Blood Urea Nitrogen 18 mg/dL (7-17); Calcium 8.8 mg/dL (8.4-10.2); Carbon Dioxide 25 mmol/L (22-30); Chloride 112 mmol/L (98-107); Globulin 2.7 g/dL; Glucose 137 mg/dL (74-99); LDH 353 U/L (313-618); Magnesium 1.7 mg/dL (1.6-2.3); Non-African American GFR(CKD) >90 (>60 ml/min/1.73 sqM); Phosphorus 3.7 mg/dL (2.5-4.5); Potassium 4.1 mmol/L (3.5-5.1); Sodium 142 mmol/L (137-145); Total Bilirubin 0.3 mg/dL (0.2-1.3); Total Protein 5.6 g/dL (6.3-8.2); Uric Acid 4.5 mg/dL (3.7-7.4)
[2021-08-19] MEDS: PANTOPRAZOLE 40 MG TABLET PO SCH (08:57)
[2021-08-19] MEDS: METOPROLOL TARTRATE 25 MG TAB PO SCH ×2 (08:57→21:16)
[2021-08-19] MEDS: PARoxetine 10 MG TAB PO SCH (08:58)
[2021-08-19] MEDS: prednisoLONE ACETATE 1% OPHTH DROPS 5 ML BTL BOTH EYES SCH ×4 (08:59→21:17)
--- NOTE | 2021-08-19 14:06 | P.PN ---
Subjective Progress Note Date: 08/19/21 Pt has mild rash on right side of face, but this does not bother her much and she says it resolves on its own after several hours. No other complaints. Pancytopenic, but stable. Objective - Vital Signs Vital signs: Vital Signs Temp 98.3 F 08/19/21 12:46 Pulse 73 08/19/21 12:46 Resp 16 08/19/21 12:46 BP 111/64 08/19/21 12:46 Pulse Ox 97 08/19/21 12:46 Intake & Output 08/18/21 08/19/21 08/19/21 18:59 06:59 18:59 Intake Total 800 590 Balance 800 590 Intake: Intake, IV Titration 800 Amount Sodium Chloride 0.9% 1, 800 000 ml @ 100 mls/hr IV . Q10H [facility] Rx#:[id number] Oral 590 Other: Voiding Method Toilet Toilet # Voids 2 1 - Exam Gen: awake, alert HEENT: normocephalic, atraumatic, good hearing acuity, moist mucous membranes Resp: good air exchange, breathing comfortably with no accessory muscle use, clear to auscultation bilaterally without wheezes CVS: good distal perfusion x 4, regular rate and rhythm without murmurs GI: soft, NTTP, ND : no SPT, no CVAT, putnam catheter not present MSK: no pitting edema, no clubbing Neuro: non-focal, moving all extremities Psych: cooperative, euthymic mood - Labs CBC & Chem 7: 08/19/21 05:45 08/19/21 05:45 Labs: Abnormal Lab Results - Last 24 Hours (Table) 08/18/21 08/19/21 08/19/21 Range/Units 04:28 05:45 05:45 RBC 2.83 L (3.80-5.40) m/uL Hgb 9.0 L (11.4-16.0) gm/dL Hct 26.8 L (34.0-46.0) % RDW 16.4 H (11.5-15.5) % Plt Count 88 L (150-450) k/uL Lymphocytes # 0.1 L (1.0-4.8) k/uL Sodium 146 H (135-145) mmol/L Chloride 113 H 112 H (96-109) mmol/L BUN 18 H (7-17) mg/dL BUN/Creatinine Ratio 22.50 H (12.00-20.00) Ratio Glucose 137 H (74-99) mg/dL Calcium 8.3 L (8.7-10.3) mg/dL Total Protein 5.4 L 5.6 L (6.2-8.2) g/dL Albumin 3.40 L 2.9 L (3.80-4.90) g/dL Assessment and Plan Assessment: Paroxysmal atrial fibrillation Mood disorder -Continue home metoprolol -Continue paroxetine -Monitor on telemetry AML -Management per primary team -Daily CBC with differential -Daily LFTs Patient is a full code is DURABLE 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
--- NOTE | 2021-08-19 20:29 | P.PN ---
Subjective Progress Note Date: 08/19/21 The patient feels well and denies any specific complaints. Mild facial rash that was noted previously has resolved and not recurred. No fever/chills/nausea/vomiting/eye complaints Objective - Vital Signs Vital signs: Vital Signs Temp 97.6 F 08/19/21 15:59 Pulse 64 08/19/21 15:59 Resp 16 08/19/21 15:59 BP 113/71 08/19/21 15:59 Pulse Ox 97 08/19/21 15:59 Intake & Output 08/19/21 08/19/21 08/20/21 06:59 18:59 06:59 Intake Total 590 2300 Balance 590 2300 Intake: Intake, IV Titration 800 Amount Sodium Chloride 0.9% 1, 800 000 ml @ 100 mls/hr IV . Q10H [facility] Rx#:[id number] Oral 590 1500 Other: Voiding Method Toilet # Voids 2 1 - Constitutional General appearance: Present: no acute distress - EENT Eyes: Present: EOMI ENT: Present: hearing grossly normal, normal oropharynx - Respiratory Respiratory: bilateral: CTA - Cardiovascular Rhythm: regular Heart sounds: normal: S1, S2 - Integumentary Integumentary: Present: normal - Neurologic Neurologic: Present: CNII-XII intact - Musculoskeletal Musculoskeletal: Present: strength equal bilaterally - Psychiatric Psychiatric: Present: A&O x's 3, appropriate affect - Labs CBC & Chem 7: 08/19/21 05:45 08/19/21 05:45 Labs: Abnormal Lab Results - Last 24 Hours (Table) 08/19/21 08/19/21 Range/Units 05:45 05:45 RBC 2.83 L (3.80-5.40) m/uL Hgb 9.0 L (11.4-16.0) gm/dL Hct 26.8 L (34.0-46.0) % RDW 16.4 H (11.5-15.5) % Plt Count 88 L (150-450) k/uL Lymphocytes # 0.1 L (1.0-4.8) k/uL Chloride 112 H (98-107) mmol/L BUN 18 H (7-17) mg/dL Glucose 137 H (74-99) mg/dL Total Protein 5.6 L (6.3-8.2) g/dL Albumin 2.9 L (3.5-5.0) g/dL Assessment and Plan (1) AML (acute myeloid leukemia) Narrative/Plan: The patient is currently undergoing cycle 1 of consolidation chemotherapy, after achieving initial remission, with high-dose cytarabine. She is on day #4. So far she has tolerated her regimen quite well. There have been no major adverse events noted. Continue treatment per protocol with ongoing monitoring with physical exams, as well as labs, which have been ordered. Current Visit: Yes Status: Acute Priority: High Code(s): C92.00 - ACUTE MYELOBLASTIC LEUKEMIA, NOT HAVING ACHIEVED REMISSION SNOMED Code(s): 37697770 (2) Bicytopenia Narrative/Plan: This has been slowly progressive since her admission, due to chemotherapy effect. However counts are well within a safe range. Continue to monitor. Transfuse to keep hemoglobin greater than 7, and platelets greater than 10. WBC is still in the normal range. Current Visit: Yes Status: Acute Code(s): D75.89 - OTHER SPECIFIED DISEASES OF BLOOD AND BLOOD-FORMING ORGANS SNOMED Code(s): 65104571
--- NOTE | 2021-08-19 23:47 | CT ---
EXAMINATION TYPE: CT chest angio for PE DATE OF EXAM: 08/19/2021 COMPARISON: None HISTORY: chest pain CT DLP: 379.2 mGycm Automated exposure control for dose reduction was used. CONTRAST: Performed with IV Contrast, patient injected with 80 mL of Isovue 370. There are 3-D post processed images. There is some mild reticular pulmonary interstitial density. There is no pulmonary mass. There is no pleural effusion. There is no pericardial effusion. Heart size is borderline enlarged. There are no h ilar masses. There is no mediastinal adenopathy. There are a few paratracheal lymph nodes that measur e up to 1 cm. Thoracic vertebra have normal alignment. Posterior elements are intact. Sternum is intact. The ribs a ppear intact. There is normal contrast opacification of the pulmonary arteries. There are no filling defects. The t horacic aorta is intact. There is no aneurysm or dissection. IMPRESSION: No evidence of pulmonary embolism. Minimal pulmonary interstitial density probably related to subsegm ental atelectasis and pulmonary fibrosis. No suspicious pulmonary mass.
[2021-08-20] MEDS: SODIUM CHLORIDE 0.9% 1,000 ML IV SCH ×2 (00:35→00:36)
[2021-08-20] MEDS: SALT AND SODA MOUTHWASH 1,000 ML PO SCH ×5 (00:37→21:20)
[2021-08-20 07:53] LABS: ALT 32 U/L (4-34); AST 38 U/L (14-36); African American GFR (CKD) >90 (>60 ml/min/1.73 sqM); Albumin 2.9 g/dL (3.5-5.0); Albumin/Globulin Ratio 1.1; Alkaline Phosphatase 61 U/L (38-126); Anion Gap 5 mmol/L; Blood Urea Nitrogen 15 mg/dL (7-17); Calcium 8.8 mg/dL (8.4-10.2); Carbon Dioxide 30 mmol/L (22-30); Chloride 108 mmol/L (98-107); Globulin 2.6 g/dL; Glucose 87 mg/dL (74-99); Non-African American GFR(CKD) 82 (>60 ml/min/1.73 sqM); Potassium 3.5 mmol/L (3.5-5.1); Sodium 143 mmol/L (137-145); Total Bilirubin 0.4 mg/dL (0.2-1.3); Total Protein 5.5 g/dL (6.3-8.2)
[2021-08-20 08:10] LABS: Anisocytosis Slight; Basophils % (A) 0 %; Eosinophils # (A) 0.2 k/uL (0-0.7); Eosinophils % (A) 3 %; HCT 25.3 % (34.0-46.0); HGB 8.9 gm/dL (11.4-16.0); Lymphocytes # (A) 0.2 k/uL (1.0-4.8); Lymphocytes % (A) 5 %; MCHC 35.1 g/dL (31.0-37.0); Mean Platelet Volume 8.2; Monocytes % (A) 1 %; Neutrophils # (A) 4.1 k/uL (1.3-7.7); Neutrophils % (A) 90 %; WBC 4.6 k/uL (3.8-10.6)
[2021-08-20 08:35] LABS: Platelet Count 82 k/uL (150-450)
[2021-08-20 08:52] VITALS: RESP 16
[2021-08-20] MEDS: PANTOPRAZOLE 40 MG TABLET PO SCH (09:26)
[2021-08-20] MEDS: METOPROLOL TARTRATE 25 MG TAB PO SCH ×2 (09:26→21:19)
[2021-08-20] MEDS: PARoxetine 10 MG TAB PO SCH (09:26)
[2021-08-20] MEDS: prednisoLONE ACETATE 1% OPHTH DROPS 5 ML BTL BOTH EYES SCH ×4 (09:27→21:20)
--- NOTE | 2021-08-20 10:53 | P.PN ---
Subjective Progress Note Date: 08/20/21 No new complaints today. Had chest pressure last night, not on telemetry. CTA was neg for PE, EKG was NSR. Pressure is resolved, no other events. Objective - Vital Signs Vital signs: Vital Signs Temp 98.6 F 08/20/21 08:20 Pulse 78 08/20/21 08:20 Resp 16 08/20/21 08:20 BP 128/75 08/20/21 08:20 Pulse Ox 98 08/20/21 08:20 Intake & Output 08/19/21 08/20/21 08/20/21 18:59 06:59 18:59 Intake Total 2300 1280 Balance 2300 1280 Intake: Intake, IV Titration 800 800 Amount Sodium Chloride 0.9% 1, 800 600 000 ml @ 100 mls/hr IV . Q10H [facility] Rx#:[id number] Sodium Chloride 0.9% 1, 200 000 ml @ 50 mls/hr IV . Q20H [facility] Rx#:[id number] Oral 1500 480 Other: Voiding Method Toilet Toilet # Voids 1 2 1 - Exam Gen: awake, alert HEENT: normocephalic, atraumatic, good hearing acuity, moist mucous membranes Resp: good air exchange, breathing comfortably with no accessory muscle use, clear to auscultation bilaterally without wheezes CVS: good distal perfusion x 4, regular rate and rhythm without murmurs GI: soft, NTTP, ND : no SPT, no CVAT, putnam catheter not present MSK: no pitting edema, no clubbing Neuro: non-focal, moving all extremities Psych: cooperative, euthymic mood - Labs CBC & Chem 7: 08/20/21 06:55 08/20/21 06:55 Labs: Abnormal Lab Results - Last 24 Hours (Table) 08/20/21 08/20/21 Range/Units 06:55 06:55 RBC 2.70 L (3.80-5.40) m/uL Hgb 8.9 L (11.4-16.0) gm/dL Hct 25.3 L (34.0-46.0) % RDW 17.0 H (11.5-15.5) % Plt Count 82 L (150-450) k/uL Lymphocytes # 0.2 L (1.0-4.8) k/uL Chloride 108 H (98-107) mmol/L AST 38 H (14-36) U/L Total Protein 5.5 L (6.3-8.2) g/dL Albumin 2.9 L (3.5-5.0) g/dL Assessment and Plan Assessment: Paroxysmal atrial fibrillation Mood disorder -Continue home metoprolol -Continue paroxetine -Monitor on telemetry AML -Management per primary team -Daily CBC with differential -Daily LFTs Patient is a full code is 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
[2021-08-20] MEDS ORDERED: FUROSEMIDE 10 MG/ML 2 ML VIAL IV ONE (13:07)
--- NOTE | 2021-08-20 13:12 | P.PN ---
Subjective Progress Note Date: 08/20/21 The patient has been reporting some mild mid chest pressure, intermittent dry cough, as well as some "fluttering" in her chest since last p.m. This has not gotten any worse but is still persistent to to some degree. She has not really noted any significant shortness of breath, and vitals have been stable. No fevers or chills. No nausea or vomiting. Objective - Vital Signs Vital signs: Vital Signs Temp 98.6 F 08/20/21 08:20 Pulse 78 08/20/21 08:20 Resp 16 08/20/21 08:20 BP 128/75 08/20/21 08:20 Pulse Ox 98 08/20/21 08:20 Intake & Output 08/19/21 08/20/21 08/20/21 18:59 06:59 18:59 Intake Total 2300 1280 Balance 2300 1280 Intake: Intake, IV Titration 800 800 Amount Sodium Chloride 0.9% 1, 800 600 000 ml @ 100 mls/hr IV . Q10H [facility] Rx#:[id number] Sodium Chloride 0.9% 1, 200 000 ml @ 50 mls/hr IV . Q20H [facility] Rx#:[id number] Oral 1500 480 Other: Voiding Method Toilet Toilet Toilet # Voids 1 2 1 - Constitutional General appearance: Present: no acute distress - EENT Eyes: Present: EOMI ENT: Present: hearing grossly normal, normal oropharynx - Respiratory Respiratory: bilateral: CTA - Cardiovascular Rhythm: regular Heart sounds: normal: S1, S2 - Gastrointestinal General gastrointestinal: Present: normal bowel sounds, soft - Integumentary Integumentary: Present: normal - Neurologic Neurologic: Present: CNII-XII intact - Musculoskeletal Musculoskeletal: Present: strength equal bilaterally - Psychiatric Psychiatric: Present: A&O x's 3, appropriate affect - Labs CBC & Chem 7: 08/20/21 06:55 08/20/21 06:55 Labs: Abnormal Lab Results - Last 24 Hours (Table) 08/20/21 08/20/21 Range/Units 06:55 06:55 RBC 2.70 L (3.80-5.40) m/uL Hgb 8.9 L (11.4-16.0) gm/dL Hct 25.3 L (34.0-46.0) % RDW 17.0 H (11.5-15.5) % Plt Count 82 L (150-450) k/uL Lymphocytes # 0.2 L (1.0-4.8) k/uL Chloride 108 H (98-107) mmol/L AST 38 H (14-36) U/L Total Protein 5.5 L (6.3-8.2) g/dL Albumin 2.9 L (3.5-5.0) g/dL Assessment and Plan (1) AML (acute myeloid leukemia) Narrative/Plan: The patient will be receiving day #5 of cycle 1 of consolidation chemotherapy with high-dose cytarabine. So far she appears to have tolerated her regimen well, without any typical side effects associated with her medication. Continue and complete chemotherapy, per protocol. Continue to monitor with physical exams, and labs Current Visit: Yes Status: Acute Priority: High Code(s): C92.00 - ACUTE MYELOBLASTIC LEUKEMIA, NOT HAVING ACHIEVED REMISSION SNOMED Code(s): 82051664 (2) Bicytopenia Narrative/Plan: Due to antineoplastic chemotherapy. Again hemoglobin and platelet counts are within a safe range with no augmentation required based on levels today. Continue to monitor and transfuse for hemoglobin less than 7 and. Counts less than 10. The patient will be placed on a regular monitoring as an outpatient post discharge also with transfusion support as needed Current Visit: Yes Status: Acute Code(s): D75.89 - OTHER SPECIFIED DISEASES OF BLOOD AND BLOOD-FORMING ORGANS SNOMED Code(s): 23789448 Plan: The patient has had new issues with some nonspecific chest pressure, and palpitations. Her EKG was normal. A CTA of the chest did not show any evidence of PE. - The patient's IV fluids were decreased to 50 mL per hour. She'll be given 1 dose of Lasix in case her symptoms are due to early fluid overload. She did not have any definite JVD, or crackles on exam - Check Troponin - She will be placed on a foreign language stenographer. Consult cardiology for further evaluation. IM is also following. As patient stated counts have been adequate, she'll be placed on Lovenox for the rest of her hospital stay, for DVT prophylaxis
[2021-08-20] MEDS: DEXAMETHASONE SOD PHOSPHATE 10 MG/ML 1 ML VIAL IV SCH (13:58)
[2021-08-20] MEDS: FAMOTIDINE 20 MG/2 ML VIAL IVP SCH (13:58)
[2021-08-20] MEDS: ENOXAPARIN 40 MG/0.4 ML SYRINGE SQ SCH (13:59)
[2021-08-20] MEDS: ONDANSETRON 16 MG in SODIUM CHLORIDE 0.9% 50 ML IVPB SCH (13:59)
[2021-08-20] MEDS: SODIUM CHLORIDE 0.9% IV SCH (14:49)
[2021-08-20] MEDS: CYTARABINE IV SCH (14:49)
[2021-08-21] MEDS: SALT AND SODA MOUTHWASH 1,000 ML PO SCH ×3 (01:16→11:39)
[2021-08-21] MEDS: CYTARABINE IV SCH (02:32)
[2021-08-21] MEDS: SODIUM CHLORIDE 0.9% IV SCH (02:32)
[2021-08-21] MEDS: SODIUM CHLORIDE 0.9% 1,000 ML IV SCH (03:25)
[2021-08-21 06:49] LABS: Basophils % (A) 0 %; Eosinophils % (A) 0 %; HCT 26.3 % (34.0-46.0); HGB 9.2 gm/dL (11.4-16.0); Lymphocytes # (A) 0.1 k/uL (1.0-4.8); Lymphocytes % (A) 2 %; MCH 32.6 pg (25.0-35.0); MCHC 34.9 g/dL (31.0-37.0); MCV 93.5 fL (80.0-100.0); Monocytes % (A) 1 %; Neutrophils # (A) 4.7 k/uL (1.3-7.7); Neutrophils % (A) 98 %; RBC 2.81 m/uL (3.80-5.40); RDW 15.5 % (11.5-15.5); WBC 4.8 k/uL (3.8-10.6)
[2021-08-21 06:53] LABS: Platelet Count 73 k/uL (150-450)
[2021-08-21 07:14] LABS: ALT 34 U/L (4-34); AST 35 U/L (14-36); African American GFR (CKD) >90 (>60 ml/min/1.73 sqM); Albumin 3.1 g/dL (3.5-5.0); Albumin/Globulin Ratio 1.2; Alkaline Phosphatase 70 U/L (38-126); Anion Gap 5 mmol/L; Blood Urea Nitrogen 19 mg/dL (7-17); Calcium 8.8 mg/dL (8.4-10.2); Carbon Dioxide 28 mmol/L (22-30); Chloride 106 mmol/L (98-107); Globulin 2.6 g/dL; Glucose 144 mg/dL (74-99); Magnesium 1.8 mg/dL (1.6-2.3); Non-African American GFR(CKD) 83 (>60 ml/min/1.73 sqM); Potassium 3.6 mmol/L (3.5-5.1); Sodium 139 mmol/L (137-145); Total Bilirubin 0.5 mg/dL (0.2-1.3); Total Protein 5.7 g/dL (6.3-8.2)
[2021-08-21] MEDS: PANTOPRAZOLE 40 MG TABLET PO SCH (07:42)
[2021-08-21] MEDS: PARoxetine 10 MG TAB PO SCH (07:42)
[2021-08-21] MEDS: ENOXAPARIN 40 MG/0.4 ML SYRINGE SQ SCH (07:42)
[2021-08-21] MEDS: METOPROLOL TARTRATE 25 MG TAB PO SCH (07:42)
[2021-08-21] MEDS: prednisoLONE ACETATE 1% OPHTH DROPS 5 ML BTL BOTH EYES SCH (07:43)
--- NOTE | 2021-08-21 11:06 | P.DS ---
Providers Date of admission: 08/16/21 09:12 Expected date of discharge: 08/21/21 Attending physician: Duong Vera Consults: 08/16/21 11:32 Consult Physician Routine Consulting Provider: Phuong Finley Consult Reason/Comments: medical management Do you want consulting provider notified?: Yes 08/20/21 13:05 Consult Physician Routine Consulting Provider: Herman Adkins Consult Reason/Comments: Chest pressure, palpitations Do you want consulting provider notified?: Yes Primary care physician: Kelly Ahuja - Discharge Diagnosis(es) (1) AML (acute myeloid leukemia) Admit for 1st consolidation treatment for AML with high dose cytarabine. Pt did very well with treatment, no significant SE, no unmanageable symptoms. Labs stable, ready to go home. She will be starting Rydapt on 08/23 50mg PO BID. Current Visit: Yes Status: Acute Priority: High Hospital Course: In follow-up today patient denies fevers, sweats, oral irritation, difficulty swallowing, painful swallowing, indigestion, heartburn, cough, shortness of breath, palpitations in the chest, acute changes in bowel or bladder habits, swelling, rash or puritis. She denies any eye pain, redness, vision changes or irritation. Assessment: WD, WN, NAD, A&Ox4, oral mucosa free thrush and lesion, BBS CTA, resp effort unlabored, abd soft, non-tender, BS +, no swelling in the legs, independently ambulatory, strength equal bilaterally, no gross motor neuro deficits, appropriate mood and affect, no rash, petechiae. Pertinent Studies: CTA no PE Procedures: PICC line placement Patient Condition at Discharge: Stable Plan - Discharge Summary New Discharge Prescriptions: New Acyclovir 400 mg PO BID #42 tablet Levofloxacin [Levaquin] 500 mg PO DAILY 1 Days #21 tab Nystatin 100,000 Unit/ml Susp [Mycostatin Oral Susp] 4 ml PO QID #350 ml No Action PARoxetine [Paxil] 10 mg PO DAILY Potassium Chloride ER [K-Dur 20] 20 meq PO DAILY #30 tab Metoprolol Tartrate [Lopressor] 25 mg PO BID Discharge Medication List PARoxetine [Paxil] 10 mg PO DAILY 12/17/18 [History] Potassium Chloride ER [K-Dur 20] 20 meq PO DAILY #30 tab 07/25/21 [Rx] Metoprolol Tartrate [Lopressor] 25 mg PO BID 08/16/21 [History] Acyclovir 400 mg PO BID #42 tablet 08/21/21 [Rx] Levofloxacin [Levaquin] 500 mg PO DAILY 1 Days #21 tab 08/21/21 [Rx] Nystatin 100,000 Unit/ml Susp [Mycostatin Oral Susp] 4 ml PO QID #350 ml 08/21/21 [Rx] Follow up Appointment(s)/Referral(s): Enedelia Kelley MD [STAFF PHYSICIAN] - 08/23/21 11:30 am Activity/Diet/Wound Care/Special Instructions: Diet as tolerated COMPLETE STEROID EYE DROPS Cont salt and soda swish and spit 5 x day Activity as tolerated HOLD POTASSIUM FOR NOW Discharge Disposition: HOME SELF-CARE Pending Studies Pending Results: No results pending Doctor attests: I performed a history and physical examination of this patient, developed impression and plan of care, discussed with dictator. I agree with dictators note, documented as a scribe.
[2021-08-21 12:16] VITALS: BP 125/79; PULSE 68; TEMP 98.4
--- NOTE | 2021-08-21 13:43 | P.CRDCN ---
History of Present Illness History of present illness: HISTORY OF PRESENTING ILLNESS This is a pleasant 61-year-old female past medical history significant for acute myeloid leukemia, paroxysmal atrial fibrillation [id number] score 1, not on anticoagulation, moderate to severe mitral regurgitation. Recent admission in June 2021 for induction of chemotherapy, she had acute hypoxic respiratory failure requring intubation and transferred to ICU, she had one episode of atrial fibrillation with RVR, she was loaded with amiodarone and given IV Cardizem and subsequently converted back to sinus rhythm, she had no further episodes of atrial fibrillation. She follows with Dr. Abdi. We are consulted on this admission for chest pain and palpitations. She was admitted to the hospital on 08/16/21 for chemotherapy treatment for AML. Patient seen and examined at bedside, no acute distress. Patient states she has palpitations about every 3 hours for about 3-4 seconds and then they subside. Occasionally she will also get chest discomfort. Describes as a pressure. It is nonradiating, nonexertional. She denies associated nausea, shortness of breath, diaphoresis, lightheadedness, dizziness, syncope. She denies history of MO, co ronary artery disease, diabetes, stroke. EKG with no evidence of acute ischemic changes. She is currently maintained on SQ lovenox, Lopressor 25 mg twice a day Telemetry tracings reveal persistent sinus mechanism. Laboratory data reviewed, troponin negative 1, WBC 4.8, hemoglobin 9.2, platelets 73, sodium 139, potassium 3.6, BUN 19, serum creatinine 0.7, magnesium 1.8 A limited echocardiogram obtained on 07/11/2021 revealed preserved LV systolic function with ejection fraction 50-55%, moderate to severe MR, mild TR and mild pulmonary hypertension with an RVSP of 34 mmHg. REVIEW OF SYSTEMS At the time of my exam: CONSTITUTIONAL: Denies fever or chills. CARDIOVASCULAR: + chest pain, +palpitations Denies shortness of breath, orthopnea, PND RESPIRATORY: Denies cough. GASTROINTESTINAL: Denies abdominal pain, diarrhea, constipation, nausea or vomiting. MUSCULOSKELETAL: Denies myalgias. NEUROLOGIC: Denies numbness, tingling, headache or weakness. ENDOCRINE: Denies fatigue, weight change, polydipsia or polyurina. GENITOURINARY: Denies burning, hematuria or urgency with micturation. HEMATOLOGIC: Denies history of anemia or bleeding. PHYSICAL EXAMINATION Blood pressure 138/75, heart rate 71, afebrile, maintaining oxygen saturation is on room air. CONSTITUTIONAL: No apparent distress. HEENT: Head is normocephalic. Pupils are equal, round. Sclerae anicteric. Mucous membranes of the mouth are moist. No JVD. No carotid bruit. CHEST EXAMINATION: Lungs are clear to auscultation. No chest wall tenderness is noted on palpation or with deep breathing. HEART EXAMINATION: Regular rate and rhythm. S1, S2 heard. Systolic murmur at apex. ABDOMEN: Soft, nontender. EXTREMITIES: 2+ peripheral pulses, no lower extremity edema and no calf tenderness. NEUROLOGIC EXAMINATION: Patient is awake, alert and oriented x3. ASSESSMENT Chest pain, atypical, troponin negative x 1, EKG with no evidence of ischemia. No arrhythmia noted on telemetry. Palpitations Paroxysmal atrial fibrillation [id number] score 1 Acute myeloid leukemia s/p chemotherapy Moderate to severe mitral regurgitation PLAN -CHADS-VASC score is 1, she is not indicated to receive anti-coagulation. -Continue beta elisha -From a cardiology perspective, patient is stable to be discharged home. Follow up outpatient with Dr. Abdi -Thank you kindly for this consultation. Nurse Practitioner note has been reviewed, I agree with a documented findings and plan of care. Patient was seen and examined. Past Medical History Past Medical History: Cancer, Osteoarthritis (OA) Additional Past Medical History / Comment(s): AML History of Any Multi-Drug Resistant Organisms: None Reported Past Surgical History: Breast Surgery, Orthopedic Surgery Additional Past Surgical History / Comment(s): breast biopsy, arthroscopy left and right knee Past Anesthesia/Blood Transfusion Reactions: No Reported Reaction Past Psychological History: Anxiety Smoking Status: Never smoker Past Alcohol Use History: None Reported Past Drug Use History: None Reported - Past Family History Father Family Medical History: Cancer Mother Family Medical History: Diabetes Mellitus Medications and Allergies Home Medications Medication Instructions Recorded Confirmed Type PARoxetine [Paxil] 10 mg PO DAILY 12/17/18 08/16/21 History Potassium Chloride ER [K-Dur 20] 20 meq PO DAILY #30 tab 07/25/21 08/16/21 Rx Metoprolol Tartrate [Lopressor] 25 mg PO BID 08/16/21 08/16/21 History Acyclovir 400 mg PO BID #42 tablet 08/21/21 Rx Levofloxacin [Levaquin] 500 mg PO DAILY 1 Days #21 tab 08/21/21 Rx Nystatin 100,000 Unit/ml Susp 4 ml PO QID #350 ml 08/21/21 Rx [Mycostatin Oral Susp] Allergies Allergy/AdvReac Type Severity Reaction Status Date / Time No Known Allergies Allergy Verified 08/16/21 10:23 Physical Exam Vitals: Vital Signs Temp Pulse Resp BP Pulse Ox 08/21/21 08:00 98.2 F 71 16 138/75 97 08/21/21 04:00 98.3 F 80 16 133/73 98 08/20/21 20:00 98.2 F 76 16 121/76 98 08/20/21 16:20 98.3 F 68 16 120/73 96 08/20/21 12:15 98.7 F 76 16 121/65 98 Intake and Output 08/20/21 08/21/21 08/21/21 22:59 06:59 14:59 Intake Total 400 1175 Balance 400 1175 Intake: Intake, IV Titration 400 1175 Amount Cytarabine/Pf 5,000 mg 575 Cytarabine/Pf 500 mg In Sodium Chloride 0.9% 500 ml 500 ml @ 191.667 mls/ hr IV Q12H [facility] Rx#: [id number] Sodium Chloride 0.9% 1, 400 600 000 ml @ 50 mls/hr IV . Q20H [facility] Rx#:[id number] Other: Voiding Method Toilet # Voids 3 Results 08/21/21 06:04 08/21/21 06:04 Cardiac Enzymes 08/20/21 08/21/21 Range/Units 07:55 06:04 AST 35 (14-36) U/L Troponin I 0.014 (0.000-0.034) ng/mL CBC 08/21/21 Range/Units 06:04 WBC 4.8 (3.8-10.6) k/uL RBC 2.81 L (3.80-5.40) m/uL Hgb 9.2 L (11.4-16.0) gm/dL Hct 26.3 L (34.0-46.0) % Plt Count 73 L (150-450) k/uL Comprehensive Metabolic Panel 08/21/21 Range/Units 06:04 Sodium 139 (137-145) mmol/L Potassium 3.6 (3.5-5.1) mmol/L Chloride 106 (98-107) mmol/L Carbon Dioxide 28 (22-30) mmol/L BUN 19 H (7-17) mg/dL Creatinine 0.78 (0.52-1.04) mg/dL Glucose 144 H (74-99) mg/dL Calcium 8.8 (8.4-10.2) mg/dL AST 35 (14-36) U/L ALT 34 (4-34) U/L Alkaline Phosphatase 70 (38-126) U/L Total Protein 5.7 L (6.3-8.2) g/dL Albumin 3.1 L (3.5-5.0) g/dL Current Medications Generic Name Dose Route Start Last Admin Trade Name Freq PRN Reason Stop Dose Admin Enoxaparin Sodium 40 mg 08/20/21 13:15 08/21/21 07:42 Enoxaparin 40 Mg/0.4 Ml Syringe SQ 40 mg DAILY [facility] Administration Sodium Chloride 1,000 mls @ 50 mls/hr 08/19/21 23:45 08/21/21 03:25 Saline 0.9% IV Not Given .Q20H [facility] Loperamide HCl 2 mg 08/16/21 13:53 Loperamide 2 Mg Cap PO QID PRN Diarrhea Lorazepam 0.5 mg 08/18/21 20:43 Lorazepam 0.5 Mg Tab PO TID PRN nausea Metoprolol Tartrate 25 mg 08/17/21 11:30 08/21/21 07:42 Metoprolol Tartrate 25 Mg Tab PO 25 mg BID [facility] Administration Pantoprazole Sodium 40 mg 08/19/21 07:30 08/21/21 07:42 Pantoprazole 40 Mg Tablet PO 40 mg [id number] [facility] Administration Paroxetine HCl 10 mg 08/17/21 14:00 08/21/21 07:42 Paroxetine 10 Mg Tab PO 10 mg DAILY [facility] Administration Petrolatum 1 applic 08/16/21 09:24 Petrolatum, White Oint 50 Gm Tube TOPICAL QID PRN Dry Skin Protocol Polyethylene Glycol 17 gm 08/16/21 13:53 Polyethylene Glycol 3350 17 Gm Powd.Pack PO DAILY PRN Constipation Prednisolone Acetate 1 drops 08/16/21 13:00 08/21/21 07:43 Prednisolone Acetate 1% Ophth Drops 5 Ml Btl BOTH EYES 1 drops QID [facility] Administration Senna/Docusate Sodium 1 each 08/16/21 13:53 Sennosides-Docusate Sodium 1 Each Tab PO DAILY PRN Constipation Sodium Bicarbonate 5 ml 08/16/21 11:00 08/21/21 11:39 Salt And Soda Mouthwash 1,000 Ml PO 5 ml 5XD [facility] Administration Sodium Chloride 10 ml 08/16/21 11:28 Sodium Chloride 0.9% Flush 10 Ml Syringe IV Q4HR PRN PICC Line Sodium Chloride 10 ml 08/23/21 09:00 Sodium Chloride 0.9% Flush 10 Ml Syringe IV WEEKLY [facility] Sodium Chloride 20 ml 08/16/21 11:28 Sodium Chloride 0.9% Flush 10 Ml Syringe IV Q4HR PRN PICC Line Intake and Output 08/20/21 08/21/21 08/21/21 22:59 06:59 14:59 Intake Total 400 1175 Balance 400 1175 Intake: Intake, IV Titration 400 1175 Amount Cytarabine/Pf 5,000 mg 575 Cytarabine/Pf 500 mg In Sodium Chloride 0.9% 500 ml 500 ml @ 191.667 mls/ hr IV Q12H [facility] Rx#: [id number] Sodium Chloride 0.9% 1, 400 600 000 ml @ 50 mls/hr IV . Q20H [facility] Rx#:[id number] Other: Voiding Method Toilet # Voids 3 08/21/21 06:04 08/21/21 06:04
--- NOTE | 2021-08-23 09:24 | CDI ---
Documentation Clarification Form Date: 08/23/2021 09:16:46 AM From: Joe Gauthier Admit Date: 08/16/2021 09:12:00 AM Patient Name: Domi Perrin Visit Number: [id number] Discharge Date: 08/21/2021 02:56:00 PM ATTENTION: The Clinical Documentation Specialists (CDI) and [facility] Coding Staff appreciate your assistance in clarifying documentation. Please respond to the clarification below the line at the bottom and electronically sign. The CDI & [facility] Coding staff will review the response and follow-up if needed. Please note: Queries are made part of the Legal Health Record. If you have any questions, please contact the author of this message via ITS. Dr. Forte, Pancytopenia is documented in the progress notes. Additional clarification regarding the etiology of pancytopenia is requested. Need to determine if this was chemotherapy induced pancytopenia, disease pancytopenia or both as this determines the DRG. History/Risk factors: AML, chemotherapy Clinical indicators: Labs: Panyctopenia Treatment: IV chemotherapy Consult: Please clarify the etiology of pancytopenia, if known: [ x ] Pancytopenia due to chemotherapy [ ] Pancytopenia drug induced, specify drug [ ] Pancytopenia due to other, please specify [ ] Anemia, please specify etiology [ ] Thrombocytopenia, please specify etiology [ ] Other condition, please specify ____ [ ] Unable to determine MTDD
== END 2021-08-21 14:56 | disposition home or self-care (01) | DRG 837 ==
LOC: 5NMEDONC 09:12
PROVIDERS: ADMIT Internal Medicine Hematology & Oncology; ATTEND Internal Medicine Hematology & Oncology
PROC: 3E03305 Introduction of Other Antineoplastic into Peripheral Vein, Percutaneous Approach (ICD-10-PCS; 2021-08-16)
PROC: 02HV33Z Insertion of Infusion Device into Superior Vena Cava, Percutaneous Approach (ICD-10-PCS; principal; 2021-08-17)
DX: Z51.11 Encounter for antineoplastic chemotherapy (principal); D61.810 Antineoplastic chemotherapy induced pancytopenia; C92.00 Acute myeloblastic leukemia, not having achieved remission; D61.818 Other pancytopenia; B37.9 Candidiasis, unspecified; D53.9 Nutritional anemia, unspecified; F39 Unspecified mood [affective] disorder; F41.9 Anxiety disorder, unspecified; I27.20 Pulmonary hypertension, unspecified; I34.0 Nonrheumatic mitral (valve) insufficiency; I48.0 Paroxysmal atrial fibrillation; K59.00 Constipation, unspecified; T45.1X5A Adverse effect of antineoplastic and immunosuppressive drugs, initial encounter; Z20.822 Contact with and (suspected) exposure to COVID-19; Z79.899 Other long term (current) drug therapy; Z83.3 Family history of diabetes mellitus; M19.90 Unspecified osteoarthritis, unspecified site; R21 Rash and other nonspecific skin eruption; R00.2 Palpitations
CPT/HCPCS: 36573; 71275; 80053; 83615; 83735; 84100; 84484; 84550; 85025; 85610; 93005

== ENCOUNTER 2021-08-30 10:31 | Emergency (ER) | payer BC ==
[2021-08-30 10:43] VITALS: BP 111/71; PULSE 93; RESP 18; TEMP 99.5
--- NOTE | 2021-08-30 11:29 | ED ---
General Adult HPI - General Chief complaint: Fall Stated complaint: Fall Time Seen by Provider: 08/30/21 10:59 Source: patient Mode of arrival: ambulatory Limitations: no limitations - History of Present Illness Initial comments: 61-year-old female presents to the emergency room for a chief complaint of head injury. Patient reports last night she got up in the middle the night to go to the bathroom. States that when she turned the bathroom light on she lost her footing and fell hitting her head. She denies any dizziness or lightheadedness preceding this fall. Denies any chest pain or shortness of breath. Patient also hit her lower lip. Patient also injured her shoulder but states it is not hurting her at this time. Denies any pain of the back chest or abdomen. Denies neck pain. Patient did get a infusion of 2 packs of platelets yesterday for verbal cytopenia secondary to her chemo treatment for AML. When she called her oncologist about the fall they recommended she come in for CT of her head to make sure there is no intracranial bleeding.Patient has no other complaints at this time including shortness of breath, chest pain, abdominal pain, nausea or vomiting, headache, or visual changes. - Related Data Home Medications Medication Instructions Recorded Confirmed PARoxetine [Paxil] 10 mg PO DAILY 12/17/18 08/30/21 Metoprolol Tartrate [Lopressor] 25 mg PO BID 08/16/21 08/30/21 Midostaurin [Rydapt] 50 mg PO BID 08/30/21 08/30/21 Previous Rx's Medication Instructions Recorded Acyclovir 400 mg PO BID #42 tablet 08/21/21 Levofloxacin [Levaquin] 500 mg PO DAILY 1 Days #21 tab 08/21/21 Nystatin 100,000 Unit/ml Susp 4 ml PO QID #350 ml 08/21/21 [Mycostatin Oral Susp] Allergies Allergy/AdvReac Type Severity Reaction Status Date / Time No Known Allergies Allergy Verified 08/30/21 11:23 Review of Systems ROS Statement: Those systems with pertinent positive or pertinent negative responses have been documented in the HPI. ROS Other: All systems not noted in ROS Statement are negative. Past Medical History Past Medical History: Cancer, Osteoarthritis (OA) Additional Past Medical History / Comment(s): AML History of Any Multi-Drug Resistant Organisms: None Reported Past Surgical History: Breast Surgery, Orthopedic Surgery Additional Past Surgical History / Comment(s): breast biopsy, arthroscopy left and right knee Past Anesthesia/Blood Transfusion Reactions: No Reported Reaction Past Psychological History: Anxiety Smoking Status: Never smoker Past Alcohol Use History: None Reported Past Drug Use History: None Reported - Past Family History Father Family Medical History: Cancer Mother Family Medical History: Diabetes Mellitus General Exam Limitations: no limitations General appearance: alert, in no apparent distress Head exam: Present: atraumatic Eye exam: Present: normal appearance, PERRL, EOMI ENT exam: Present: mucous membranes moist. Absent: normal exam (Patient has a small contusion of the left lower lip. No laceration. No bruising elsewhere in the face or head) Neck exam: Present: normal inspection, full ROM. Absent: tenderness Respiratory exam: Present: normal lung sounds bilaterally. Absent: respiratory distress, wheezes Cardiovascular Exam: Present: regular rate, normal rhythm, normal heart sounds GI/Abdominal exam: Present: soft, other (No ecchymosis or bruising of the abdomen chest or back). Absent: distended, tenderness Neurological exam: Present: alert, oriented X3, normal gait, other (GCS 15) Course Vital Signs 08/30/21 10:38 Temperature 99.5 F Pulse Rate 93 Respiratory 18 Rate Blood Pressure 111/71 O2 Sat by Pulse 97 Oximetry Medical Decision Making - Medical Decision Making CT brain and C-spine was obtained. CT cervical spine shows no acute fracture or dislocation evident. CT brain shows no intracranial hemorrhage mass effect or midline shift. At this time patient can be discharged home to follow up with primary care. Will return here for any worsening symptoms. Disposition Clinical Impression: Head injury, Contusion, lip Disposition: HOME SELF-CARE Condition: Good Instructions (If sedation given, give patient instructions): Head Injury (ED) Additional Instructions: Please follow-up with your doctor in one to 2 days. Return to the emergency room for any worsening symptoms. Is patient prescribed a controlled substance at d/c from ED?: No Referrals: Kelly Ahuja MD [Primary Care Provider] - 1-2 days Time of Disposition: 12:06
--- NOTE | 2021-08-30 11:53 | CT ---
EXAMINATION TYPE: CT brain martinine wo con DATE OF EXAM: 08/30/2021 COMPARISON: 07/03/2021 HISTORY: Pain post fall CT DLP: 1252.8 mGycm Automated exposure control for dose reduction was used. TECHNIQUE: CT scan of the head and cervical spine are performed without contrast. FINDINGS: There is no acute intracranial hemorrhage, mass effect, or midline shift identified. The ventricles and sulci are within normal limits in size. The globes are intact and the visualized sin uses are clear. Cervical spine is visualized in its entirety from C1 through upper thoracic levels and demonstrates s atisfactory alignment without evidence of acute fracture or dislocation. Prevertebral soft tissue ap pears within normal limits. The C1-C2 articulation is unremarkable. There is multilevel facet arthr opathy and hypertrophic degenerative changes. Most marked at C5-C6. There is loss of the normal cervi carlos lordosis. Assessment spinal canal nondiagnostic due to resolution artifact. If concern for disc h erniation correlate with MRI. IMPRESSION: 1. There is no acute fracture or dislocation evident in the cervical spine. Limited assessment spinal canal due to artifact and resolution. Multilevel hypertrophic and degenerative changes as discussed above. Consider follow-up MRI. 2. No acute intracranial hemorrhage, mass effect, or midline shift is seen.
== END 2021-08-30 12:35 | disposition home or self-care (01) ==
LOC: EC 10:31
DX: S00.531A Contusion of lip, initial encounter (principal); M19.90 Unspecified osteoarthritis, unspecified site; F41.9 Anxiety disorder, unspecified; Z85.6 Personal history of leukemia; W01.10XA Fall on same level from slipping, tripping and stumbling with subsequent striking against unspecified object, initial encounter
CPT/HCPCS: 70450; 72125; 99283

== ENCOUNTER 2021-09-02 20:55 | Inpatient (IN) | payer BC ==
[2021-09-02] MEDS ORDERED: SODIUM CHLORIDE 0.9% 1,000 ML IV STA (21:44)
--- NOTE | 2021-09-02 22:08 | ED ---
Fever HPI - General Chief Complaint: Fever Stated Complaint: Syncope Time Seen by Provider: 09/02/21 21:25 Source: patient, EMS, RN notes reviewed Mode of arrival: EMS Limitations: no limitations - History of Present Illness Initial Comments: 61-year-old female presents emergency Department with chief complaint of a syncopal episode, fever. Patient states that she was at home she was not feeling well states that she just fell off she went to the bathroom but shortly after get up to go to the kitchen and states that she started feeling very lightheaded, told her that she didn't feel well and passed out. Patient states his happened a few days ago some her fashion. Patient states though she checked her temperature and was found have a temp 100.7. Patient was advised watch out for fever by her oncologist that she had a new chemotherapy a few weeks ago. Patient also has received recent blood transfusion and platelets. Patient's oncologist is Dr. Kelley. Patient denies any cough or URI symptoms no abdominal pain no dysuria no hematuria. - Related Data Home Medications Medication Instructions Recorded Confirmed PARoxetine [Paxil] 10 mg PO DAILY 12/17/18 09/02/21 Metoprolol Tartrate [Lopressor] 25 mg PO BID 08/16/21 09/02/21 Midostaurin [Rydapt] 50 mg PO BID 08/30/21 09/02/21 Previous Rx's Medication Instructions Recorded Acyclovir 400 mg PO BID #42 tablet 08/21/21 Levofloxacin [Levaquin] 500 mg PO DAILY 1 Days #21 tab 08/21/21 Nystatin 100,000 Unit/ml Susp 4 ml PO QID #350 ml 08/21/21 [Mycostatin Oral Susp] Allergies Allergy/AdvReac Type Severity Reaction Status Date / Time No Known Allergies Allergy Verified 09/02/21 23:17 Review of Systems ROS Statement: Those systems with pertinent positive or pertinent negative responses have been documented in the HPI. ROS Other: All systems not noted in ROS Statement are negative. Past Medical History Past Medical History: Atrial Fibrillation, Cancer, Osteoarthritis (OA) Additional Past Medical History / Comment(s): AML, chemotherapy History of Any Multi-Drug Resistant Organisms: None Reported Past Surgical History: Breast Surgery, Orthopedic Surgery Additional Past Surgical History / Comment(s): breast biopsy, arthroscopy left and right knee Past Anesthesia/Blood Transfusion Reactions: No Reported Reaction Past Psychological History: Anxiety Smoking Status: Never smoker Past Alcohol Use History: None Reported Past Drug Use History: None Reported - Past Family History Father Family Medical History: Cancer Mother Family Medical History: Diabetes Mellitus General Exam Limitations: no limitations General appearance: alert, in no apparent distress Head exam: Present: atraumatic, normocephalic, normal inspection Eye exam: Present: normal appearance, PERRL, EOMI. Absent: scleral icterus, conjunctival injection, periorbital swelling ENT exam: Present: mucous membranes moist, TM's normal bilaterally. Absent: normal exam, normal oropharynx (Ecchymotic area on the left lower lip, m andibular region ecchymotic areas noted on the tongue) Neck exam: Present: normal inspection, full ROM. Absent: tenderness, meningismus, lymphadenopathy Respiratory exam: Present: normal lung sounds bilaterally. Absent: respiratory distress, wheezes, rales, rhonchi, stridor Cardiovascular Exam: Present: regular rate, normal rhythm, normal heart sounds. Absent: systolic murmur, diastolic murmur, rubs, gallop, clicks GI/Abdominal exam: Present: soft, normal bowel sounds. Absent: distended, ten derness, guarding, rebound, rigid Neurological exam: Present: alert, oriented X3, CN II-XII intact, reflexes normal. Absent: motor sensory deficit Skin exam: Present: warm, dry, intact, normal color. Absent: rash Course Vital Signs 09/02/21 21:06 Temperature 100.7 F H Pulse Rate 96 Respiratory 18 Rate Blood Pressure 131/53 O2 Sat by Pulse 97 Oximetry Medical Decision Making - Medical Decision Making 61-year-old female presented for fever, syncopal episode. Patient had vasovagal syncope. Patient found to have neutropenic fever with a white count of 0.2 patient has a platelet count of 6. I did discuss case with oncology who recommended platelets 1 at a time. Patient was started on but certainly rash includes cefepime, vancomycin case discussed with admitting physician. - Lab Data Result diagrams: 09/02/21 22:25 09/02/21 22:25 Lab Results 09/02/21 09/02/21 09/02/21 Range/Units 22:25 22:25 22:25 WBC 0.2 L* (3.8-10.6) k/uL RBC 2.58 L (3.80-5.40) m/uL Hgb 8.4 L (11.4-16.0) gm/dL Hct 22.2 L (34.0-46.0) % MCV 86.0 D (80.0-100.0) fL MCH 32.6 (25.0-35.0) pg MCHC 37.9 H (31.0-37.0) g/dL RDW 12.6 (11.5-15.5) % Plt Count 6 L* D (150-450) k/uL MPV 7.3 Neutrophils # [employer] Differential Comment Manual Slide Review Performed Hyperchromasia Marked Sodium 136 L (137-145) mmol/L Potassium 4.1 (3.5-5.1) mmol/L Chloride 99 (98-107) mmol/L Carbon Dioxide 25 (22-30) mmol/L Anion Gap 11 mmol/L BUN 18 H (7-17) mg/dL Creatinine 0.84 (0.52-1.04) mg/dL Est GFR (CKD-EPI)AfAm 87 (>60 ml/min/1.73 sqM) Est GFR (CKD-EPI)NonAf 76 (>60 ml/min/1.73 sqM) Glucose 175 H (74-99) mg/dL Plasma Lactic Acid Joel 2.0 (0.7-2.0) mmol/L Calcium 9.7 (8.4-10.2) mg/dL Total Bilirubin 1.0 (0.2-1.3) mg/dL AST 30 (14-36) U/L ALT 22 (4-34) U/L Alkaline Phosphatase 85 (38-126) U/L Troponin I (0.000-0.034) ng/mL Total Protein 6.6 (6.3-8.2) g/dL Albumin 3.9 (3.5-5.0) g/dL 09/02/21 Range/Units 22:25 WBC (3.8-10.6) k/uL RBC (3.80-5.40) m/uL Hgb (11.4-16.0) gm/dL Hct (34.0-46.0) % MCV (80.0-100.0) fL MCH (25.0-35.0) pg MCHC (31.0-37.0) g/dL RDW (11.5-15.5) % Plt Count (150-450) k/uL MPV Neutrophils # Differential Comment Manual Slide Review Hyperchromasia Sodium (137-145) mmol/L Potassium (3.5-5.1) mmol/L Chloride (98-107) mmol/L Carbon Dioxide (22-30) mmol/L Anion Gap mmol/L BUN (7-17) mg/dL Creatinine (0.52-1.04) mg/dL Est GFR (CKD-EPI)AfAm (>60 ml/min/1.73 sqM) Est GFR (CKD-EPI)NonAf (>60 ml/min/1.73 sqM) Glucose (74-99) mg/dL Plasma Lactic Acid Joel (0.7-2.0) mmol/L Calcium (8.4-10.2) mg/dL Total Bilirubin (0.2-1.3) mg/dL AST (14-36) U/L ALT (4-34) U/L Alkaline Phosphatase (38-126) U/L Troponin I 0.032 (0.000-0.034) ng/mL Total Protein (6.3-8.2) g/dL Albumin (3.5-5.0) g/dL - EKG Data -: EKG Interpreted by Me EKG Comments: EKG performed at 22:02 normal sinus rhythm rate of 93 CO 142 QRS 68 QTC is QTC 362/450 Critical Care Time Critical Care Time: Yes Total Critical Care Time: 35 Disposition Clinical Impression: AML (acute myeloid leukemia), Neutropenic fever, Pancytopenia due to antineoplastic chemotherapy Disposition: ADMITTED IP TO THIS HOSP Condition: Serious Referrals: Kelly Ahuja MD [Primary Care Provider] - 1-2 days
[2021-09-02 22:44] LABS: HCT 22.2 % (34.0-46.0); HGB 8.4 gm/dL (11.4-16.0); Hyperchromasia Marked; MCH 32.6 pg (25.0-35.0); MCHC 37.9 g/dL (31.0-37.0); Mean Platelet Volume 7.3; RBC 2.58 m/uL (3.80-5.40); RDW 12.6 % (11.5-15.5)
[2021-09-02 23:02] LABS: WBC 0.2 k/uL (3.8-10.6)
[2021-09-02 23:03] LABS: Albumin 3.9 g/dL (3.5-5.0); Total Protein 6.6 g/dL (6.3-8.2)
[2021-09-02 23:04] LABS: Calcium 9.7 mg/dL (8.4-10.2); Potassium 4.1 mmol/L (3.5-5.1)
[2021-09-02 23:11] LABS: Platelet Count 6 k/uL (150-450)
[2021-09-02] MEDS ORDERED: CEFEPIME 2 GM in SODIUM CHLORIDE 0.9% 100 ML IVPB STA (23:15)
[2021-09-02] MEDS ORDERED: VANCOMYCIN IV PER PHARMACY 1 EACH MISC MISCELLANE PRN (23:16)
--- NOTE | 2021-09-02 23:23 | XR ---
EXAMINATION TYPE: XR chest 2V DATE OF EXAM: 09/02/2021 COMPARISON: 07/25/2021 HISTORY: Fever TECHNIQUE: 2 views FINDINGS: Heart and mediastinum are normal. There is small linear density left lower lobe. Right lung is clear. There are no hilar masses. Costophrenic angles are clear. Bony thorax is intact. IMPRESSION: Mild subsegmental atelectasis. Normal heart. There is clearing of the bilateral pneumonia compared to old exam.
[2021-09-02] MEDS ORDERED: VANCOMYCIN 1,500 MG in SODIUM CHLORIDE 0.9% 250 ML IVPB ONE (23:30)
[2021-09-02] MEDS ORDERED: ONDANSETRON 4 MG/2 ML VIAL IVP PRN (23:41)
[2021-09-02] MEDS ORDERED: NALOXONE 0.4 MG/ML 1 ML VIAL IV PRN (23:41)
[2021-09-03] MEDS: SODIUM CHLORIDE 0.9% 1,000 ML IV SCH ×3 (00:46→21:43)
[2021-09-03 01:46] LABS: Appearance,Urine Clear (Clear); Bilirubin,Urine Negative (Negative); Blood,Urine Negative (Negative); Color,Urine Light Yellow; Glucose,Urine (UA) Negative (Negative); Ketones,Urine Negative (Negative); Leukocyte Esterase,Urine Negative (Negative); Nitrite,Urine Negative (Negative); Protein,Urine Negative (Negative); Urobilinogen,Urine <2.0 mg/dL (<2.0)
--- NOTE | 2021-09-03 01:46 | P.HPIM ---
History of Present Illness H&P Date: 09/02/21 Chief Complaint: Fever, syncope 61-year-old female with AML on chemotherapy Patient comes in today due to spiking fever at home she denies any upper respiratory infection symptoms denies any coughing shortness of breath chest pain, denies any urinary changes denies any diarrhea denies any bleeding. Denies any skin rashes. Patient had chemotherapy couple weeks ago she has recently also received some platelets due to thrombocytopenia. Patient does report recent fall couple days ago she hurt her left shoulder and left jaw which is currently bruised however she doesn't have any limitation in range of motion she was evaluated at work hospital at that time imaging showed no acute fractures CT of the brain showed no acute pathology. Today at home she didn't feel well she took her temperature couple times and found herself febrile with a temperature 100.7 decided come to hospital for evaluation as she was leaving the house using the walker she passed out and her was able to catch her prevent her from falling. Other than that she feels at her baseline status of health without any identifiable source of infection at this time Review of Systems Pertinent positives as noted in HPI. All other systems were reviewed and are negative Past Medical History Past Medical History: Atrial Fibrillation, Cancer, Osteoarthritis (OA) Additional Past Medical History / Comment(s): AML, chemotherapy History of Any Multi-Drug Resistant Organisms: None Reported Past Surgical History: Breast Surgery, Orthopedic Surgery Additional Past Surgical History / Comment(s): breast biopsy, arthroscopy left and right knee Past Anesthesia/Blood Transfusion Reactions: No Reported Reaction Past Psychological History: Anxiety Smoking Status: Never smoker Past Alcohol Use History: None Reported Past Drug Use History: None Reported - Past Family History Father Family Medical History: Cancer Mother Family Medical History: Diabetes Mellitus Medications and Allergies Home Medications Medication Instructions Recorded Confirmed Type PARoxetine [Paxil] 10 mg PO DAILY 12/17/18 09/02/21 History Metoprolol Tartrate [Lopressor] 25 mg PO BID 08/16/21 09/02/21 History Acyclovir 400 mg PO BID #42 tablet 08/21/21 09/02/21 Rx Levofloxacin [Levaquin] 500 mg PO DAILY 1 Days #21 tab 08/21/21 09/02/21 Rx Nystatin 100,000 Unit/ml Susp 4 ml PO QID #350 ml 08/21/21 09/02/21 Rx [Mycostatin Oral Susp] Midostaurin [Rydapt] 50 mg PO BID 08/30/21 09/02/21 History Allergies Allergy/AdvReac Type Severity Reaction Status Date / Time No Known Allergies Allergy Verified 09/02/21 23:17 Physical Exam Vitals: Vital Signs Temp Pulse Resp BP Pulse Ox 09/03/21 01:13 98.7 F 90 24 129/74 97 09/02/21 21:06 100.7 F H 96 18 131/53 97 Intake and Output 09/02/21 09/02/21 09/03/21 14:59 22:59 06:59 Other: Weight 81.193 kg Constitutional: No acute distress, conversant, pleasant Eyes: Anicteric sclerae, moist conjunctiva, Pupils equal round reactive to light ENMT: NC/ bruising over her left chin, swelling and bruising of the left lower lip, bruising and ecchymosis over the left shoulder Oropharynx clear, no erythema, or exudates Neck: Supple, FROM, no masses, or JVD No carotid bruits No thyromegaly Lungs: Clear to auscultation Clear to percussion Normal respiratory effort, no accessory muscle use Cardiovascular: Heart regular in rate and rhythm, No murmurs, gallops, or rubs No peripheral edema Abdominal: Soft Nontender, no guarding, rebound or rigidity Abdomen moving with respiration Normoactive bowel sounds No hepatomegaly, No splenomegaly No palpable mass No abdominal wall hernia noted Skin: bruising over her left chin, swelling and bruising of the left lower lip, bruising and ecchymosis over the left shoulder otherwise Normal temperature, tone, texture, turgor No induration No subcutaneous nodules No rash, lesions No ulcers Extremities: No digital cyanosis No clubbing Pedal pulses intact and symmetrical Radial pulses intact and symmetrical No calf tenderness Psychiatric: Alert and oriented to person, place and time Appropriate affect fair judgement Neuro Muscles Strength 4/5 in all 4 extremities Sensation to light touch grossly present throughout Cranial nerves II-XII grossly intact No focal sensory deficits Lymphatics: no palpable cervical or supraclavicular , or inguinal lymph nodes Results CBC & Chem 7: 09/02/21 22:25 09/02/21 22:25 Labs: Abnormal Lab Results - Last 24 Hours (Table) 10/09/21 10/09/21 Range/Units 22:25 22:25 WBC 0.2 L* (3.8-10.6) k/uL RBC 2.58 L (3.80-5.40) m/uL Hgb 8.4 L (11.4-16.0) gm/dL Hct 22.2 L (34.0-46.0) % MCHC 37.9 H (31.0-37.0) g/dL Plt Count 6 L* D (150-450) k/uL Sodium 136 L (137-145) mmol/L BUN 18 H (7-17) mg/dL Glucose 175 H (74-99) mg/dL Assessment and Plan Assessment: Neutropenic fever Acute myeloid leukemia on chemotherapy Pancytopenia secondary to above Follow-up cultures No identifiable source of infection Patient started empirically on cefepime and vancomycin Tylenol for fever IV fluid hydration with normal saline Monitor vital signs Oncology consultation Patient is full code DVT prophylaxis mechanical due to thrombocytopenia Anticipated length of stay more than 2 midnights Anticipated discharge home
[2021-09-03] MEDS: ACETAMINOPHEN TAB 325 MG TAB PO PRN ×2 (05:26→23:17)
[2021-09-03] MEDS ORDERED: MIDOSTAURIN 25 MG PO SCH (09:00)
[2021-09-03] MEDS: PARoxetine 10 MG TAB PO SCH (09:43)
[2021-09-03] MEDS: NYSTATIN 100,000 UNIT/ML SUSP 500,000 UNIT/5 ML CUP PO SCH ×4 (09:43→20:20)
[2021-09-03] MEDS: ACYCLOVIR 200 MG CAP PO SCH ×2 (09:43→20:19)
[2021-09-03] MEDS: CEFEPIME 2 GM in SODIUM CHLORIDE 0.9% 100 ML IVPB SCH ×3 (09:44→23:26)
[2021-09-03] MEDS: METOPROLOL TARTRATE 25 MG TAB PO SCH ×2 (09:50→20:19)
[2021-09-03] MEDS: MIDOSTAURIN 25 MG PO SCH ×2 (10:43→16:50)
--- NOTE | 2021-09-03 12:11 | P.CONS ---
History of Present Illness - Reason for Consult Consult date: 09/03/21 AML, febrile neutropenia Requesting physician: Armando Barbosa - Chief Complaint Syncope and fever at home 100.7 - History of Present Illness Mrs. Perrin is a very pleasant 61-year-old female who we saw in end of May 2021 regarding sudden onset macrocytic anemia and thrombocytopenia, her labs had been normal up until 06/07 on routine lab drawn by her PCP. She had fever when seen at her PCP ofc and was sent to ER for garner culture workup, IV antibiotics and evaluation. Patient reported 12lb wt loss, declining energy levels and decreased stamina in the last few weeks. She was Covid negative. Iron studies significantly elevated (this was prior to transfusion), thyroid studies were normal, LDH elevated 438. MCV 109.7, renal function is normal. Hemoglobin 5.8 on admission, platelet count 38,000. Patient has had no other acute changes in her health, no other complaints. She received her second covid vaccine 04/07/21. She had BM bx and aspirate 06/21/21, AML diagnosis. She was initiated immediately on induction chemo with 7+3 regimen. She required intubation and extensive supportive care, transfusions. She recovered nicely, had f/u BM Bx and asp 07/25 revealing no ressidual AML, cytogenetics negative, NGS pending. Pending review of her case with BMT team in [place]. 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 Discharged with instructions to continue Rydapt 50mg bid. Recent pRBC and plt transfusion for chemotherapy related pancytopenia. She comes in now for feeling tired, weak, as well as having syncopal episode and fever 100.7 at home. She had a platelet transfusion on Saturday and had a syncopal episode that day with left lip bruising. Her platelets improved from single digits to 18. She had 2 units of blood transfusion few days ago. She was not feeling well and ended up with a syncopal episode, falling back onto her who caught her, with a prodrome of darkening vision on the day of presentation. Her temperature was also 100.7 during the day, which prompted EMS called to bring her into the hospital. Work up with pancytopenia, WBC 0.2, Hgb 8.4, plt 9. Some bruising from her fall. Fever of 100.7 in ED. CXR with resolving pneumonia and UA negative. COVID/RSV/Flu panel negative. She was started on vancomycin and cefepime and was admitted for further management. She received 1 unit of platelets. Continues to have significant ecchymosis bilateral upper and lower extremities including her blood pressure cuff, right ankle, with minimal to unknown trauma. Past Medical History Past Medical History: Atrial Fibrillation, Cancer, Osteoarthritis (OA) Additional Past Medical History / Comment(s): AML, chemotherapy History of Any Multi-Drug Resistant Organisms: None Reported Past Surgical History: Breast Surgery, Orthopedic Surgery Additional Past Surgical History / Comment(s): breast biopsy, arthroscopy left and right knee Past Anesthesia/Blood Transfusion Reactions: No Reported Reaction Past Psychological History: Anxiety Smoking Status: Never smoker Past Alcohol Use History: None Reported Past Drug Use History: None Reported - Past Family History Father Family Medical History: Cancer Mother Family Medical History: Diabetes Mellitus Medications and Allergies Home Medications Medication Instructions Recorded Confirmed Type PARoxetine [Paxil] 10 mg PO DAILY 12/17/18 09/02/21 History Metoprolol Tartrate [Lopressor] 25 mg PO BID 08/16/21 09/02/21 History Acyclovir 400 mg PO BID #42 tablet 08/21/21 09/02/21 Rx Levofloxacin [Levaquin] 500 mg PO DAILY 1 Days #21 tab 08/21/21 09/02/21 Rx Nystatin 100,000 Unit/ml Susp 4 ml PO QID #350 ml 08/21/21 09/02/21 Rx [Mycostatin Oral Susp] Midostaurin [Rydapt] 50 mg PO BID 08/30/21 09/02/21 History Allergies Allergy/AdvReac Type Severity Reaction Status Date / Time No Known Allergies Allergy Verified 09/02/21 23:17 Physical Exam Vitals: Vital Signs Temp Pulse Resp BP Pulse Ox 09/03/21 09:49 86 18 118/65 97 09/03/21 08:00 98.9 F 92 20 113/70 98 09/03/21 07:25 98.9 F 84 22 99/49 98 09/03/21 06:55 99.3 F 69 22 106/63 97 09/03/21 06:45 98.2 F 78 22 106/53 09/03/21 05:23 100.0 F H 93 18 116/58 100 09/03/21 01:13 98.7 F 90 24 129/74 97 09/02/21 21:06 100.7 F H 96 18 131/53 97 Intake and Output 09/02/21 09/03/21 09/03/21 22:59 06:59 14:59 Intake Total 0 362 Balance 0 362 Intake: Blood Product 0 362 Platelet Pheresis Pas 0 362 Psoralen Unit [id number] Other: Weight 81.193 kg Gen.: In no acute distress. HEENT: Mucosa moist. Lungs: No respiratory distress. Heart: Regular rate. Abdomen: Soft. MSK: Appropriate strength in all 4 extremities. Neuro: Alert and oriented 3. Skin: No jaundice. She has ecchymosis on her left lip from prior fall, right ankle, right upper arm bruising from BP cuff, as well as various bruising on extermities bilaterally; no bruising on abdomen. Psych: Appropriate affect. Results CBC & Chem 7: 09/02/21 22:25 09/02/21 22:25 Labs: Abnormal Lab Results - Last 24 Hours (Table) 09/02/21 09/02/21 Range/Units 22:25 22:25 WBC 0.2 L* (3.8-10.6) k/uL RBC 2.58 L (3.80-5.40) m/uL Hgb 8.4 L (11.4-16.0) gm/dL Hct 22.2 L (34.0-46.0) % MCHC 37.9 H (31.0-37.0) g/dL Plt Count 6 L* D (150-450) k/uL Sodium 136 L (137-145) mmol/L BUN 18 H (7-17) mg/dL Glucose 175 H (74-99) mg/dL Chest x-ray: report reviewed Assessment and Plan (1) AML (acute myeloid leukemia) Current Visit: Yes Status: Acute Priority: High Code(s): C92.00 - ACUTE MYELOBLASTIC LEUKEMIA, NOT HAVING ACHIEVED REMISSION SNOMED Code(s): 84073292 (2) Neutropenic fever Current Visit: Yes Status: Acute Code(s): D70.9 - NEUTROPENIA, UNSPECIFIED; R50.81 - FEVER PRESENTING WITH CONDITIONS CLASSIFIED ELSEWHERE SNOMED Code(s): 962004399 (3) Pancytopenia due to antineoplastic chemotherapy Current Visit: Yes Status: Acute Priority: High Code(s): D61.810 - ANTINEOPLASTIC CHEMOTHERAPY INDUCED PANCYTOPENIA; T45.1X5A - ADVERSE EFFECT OF ANTINEOPLASTIC AND IMMUNOSUP DRUGS, INIT SNOMED Code(s): 471157418227564 (4) Sepsis Current Visit: No Status: Acute Code(s): A41.9 - SEPSIS, UNSPECIFIED ORGANISM SNOMED Code(s): 10684070 (5) Syncope Current Visit: Yes Status: Acute Code(s): R55 - SYNCOPE AND COLLAPSE SNOMED Code(s): 617780345 Plan: Ms. Perrin is a very pleasant 61-year-old female with a history of AML, FLT3 positive, status post induction chemotherapy followed by 1 cycle of consolidation with HiDAC and Rydapt, who is here for synocpe and fever. She received 2 units of blood and a unit of platelets earlier this week. She did fall the same day she got her unit of platelets due to syncopal episode on Saturday with injury to her lip which is currently bruised. Otherwise she was fine until yesterday when she had another syncopal episode with a prodrome. Her caught her without any specific injuries. Also had a fever 100.7 which revealed prompted her ER visit via EMS. She is on every pancytopenic on CBC with WBC of 0.2. Her pancytopenia is due to chemotherapy. She does need infectious work up which is pending as well as broad-spectrum antibiotics. No G-CSF at this point. UA and chest x-ray reviewed, negative for obvious infection; chest x-ray revealing keep resolving pneumonia which she was admitted for about a month ago. Supportive transfusion to maintain hemoglobin above 7 and platelets above 15. She received 1 unit of platelets overnight and I will order another unit today due to extensive ecchymosis on her extremities. She needs irradiated blood products. We'll hold Rydapt tonight and reassess tomorrow and possibly resume this if she remains afebrile. She already took her am dose today. Discussed with patient and family at bedside in detail and they're agreeable to the plan. All of their questions were answered. We'll continue to follow patient with you.
--- NOTE | 2021-09-03 14:38 | P.PN ---
Subjective Progress Note Date: 09/03/21 No new complaints, patient is doing well. Status post 1 unit of platelet transfusion, will follow up CBC. No further fevers, no source of infection. Blood cultures are pending. Objective - Vital Signs Vital signs: Vital Signs Temp 99.1 F 09/03/21 12:55 Pulse 87 09/03/21 12:55 Resp 18 09/03/21 12:55 BP 105/68 09/03/21 12:55 Pulse Ox 96 09/03/21 12:55 Intake & Output 09/02/21 09/03/21 09/03/21 18:59 06:59 18:59 Intake Total 0 362 Balance 0 362 Weight 81.193 kg 81.193 kg Intake: Blood Product 0 362 Platelet Pheresis Pas 0 362 Psoralen Unit [id number] - Exam Gen: awake, alert HEENT: normocephalic, atraumatic, good hearing acuity, moist mucous membranes Resp: good air exchange, breathing comfortably with no accessory muscle use CVS: good distal perfusion x 4, GI: soft, NTTP, ND : no SPT, no CVAT, putnam catheter not present MSK: no pitting edema, no clubbing Neuro: non-focal, moving all extremities Psych: cooperative, euthymic mood - Labs CBC & Chem 7: 09/02/21 22:25 09/02/21 22:25 Labs: Abnormal Lab Results - Last 24 Hours (Table) 09/02/21 09/02/21 Range/Units 22:25 22:25 WBC 0.2 L* (3.8-10.6) k/uL RBC 2.58 L (3.80-5.40) m/uL Hgb 8.4 L (11.4-16.0) gm/dL Hct 22.2 L (34.0-46.0) % MCHC 37.9 H (31.0-37.0) g/dL Plt Count 6 L* D (150-450) k/uL Sodium 136 L (137-145) mmol/L BUN 18 H (7-17) mg/dL Glucose 175 H (74-99) mg/dL Microbiology - Last 24 Hours (Table) 09/02/21 22:07 Blood Culture - Final Blood Assessment and Plan Assessment: Neutropenic fever Acute myeloid leukemia on chemotherapy Pancytopenia secondary to above Follow-up cultures No identifiable source of infection Patient started empirically on cefepime and vancomycin Tylenol for fever IV fluid hydration with normal saline Monitor vital signs Oncology consultation ID consultation Patient is full code DVT prophylaxis mechanical due to thrombocytopenia Anticipated length of stay more than 2 midnights Anticipated discharge home
[2021-09-03] MEDS ORDERED: VANCOMYCIN 1,500 MG in SODIUM CHLORIDE 0.9% 250 ML IVPB SCH (17:00)
[2021-09-03] MEDS: SALT AND SODA MOUTHWASH 1,000 ML PO SCH ×2 (21:34→21:42)
[2021-09-04] MEDS: SALT AND SODA MOUTHWASH 1,000 ML PO SCH ×6 (03:54→21:58)
[2021-09-04 06:42] LABS: Hyperchromasia Marked; MCH 32.1 pg (25.0-35.0); MCHC 37.6 g/dL (31.0-37.0); MCV 85.5 fL (80.0-100.0); Mean Platelet Volume 8.7; Poikilocytosis Slight; RBC 2.11 m/uL (3.80-5.40); RDW 13.1 % (11.5-15.5)
[2021-09-04 06:43] LABS: HGB 6.8 gm/dL (11.4-16.0); WBC 0.2 k/uL (3.8-10.6)
[2021-09-04 06:44] LABS: HCT 18.1 % (34.0-46.0); Platelet Count 27 k/uL (150-450)
--- NOTE | 2021-09-04 07:16 | P.CONS ---
History of Present Illness - Reason for Consult Consult date: 09/03/21 Fever Requesting physician: Ar Bailey - Chief Complaint Fever x 1 day - History of Present Illness History of present illness : Patient is 61-year-old female with a past medical history significant for acute myeloid leukemia on chemotherapy patient presenting to the ER last night for evaluation of feeling weak did have a recent fall this patient who did have an injury to the left side of the face and the shoulder area patient also have a fever at home with a temperature 100.7 degree form height before leaving for the hospital the patient almost passed out, the patient also have a PICC line which was recently discontinued as it was not functioning, on presentation to the hospital patient did have a fever 100.7 degree form height with no fever so far today patient denies having any headache or URI symptoms, denies having any chest pain or shortness of breath or cough no nausea no vomiting no abdominal pain no diarrhea no urinary symptoms patient on presentation the hospital did have a white count of 0.2 platelet count of six creatinine 0.84 serrano PCR was negative urine is negative patient did have a chest x-ray mild subsegmental atelectasis clearing of bilateral pneumonia compared to old exam patient blood cultures coming back positive with Streptococcus species patient has been treated with the cefepime and vancomycin vancomycin has been discontinued infectious disease was consulted for further management of antibiotic therapy Review of system: CONSTITUTIONAL: Positive for weakness along with the fever. EYES: No complaint. ENT: No complaint. RESPIRATORY: No complaint. CARDIOVASCULAR: No complaint. GENITOURINARY: No complaint. GASTROINTESTINAL: No complaint. MUSCULOSKELETAL: No complaint. INTEGUMENTARY: No complaint. PSYCHOLOGIC: No complaint. ENDOCRINE: No complaint. NEUROLOGIC: As per history of present illness. Past medical history : Reviewed, documented below Past surgical history : Reviewed, documented below Social history: Reviewed, documented below Medications: Reviewed, as documented below EXAMINATION: Vital sigans= Reviewed and documented below GENERAL DESCRIPTION: Middle-aged female lying in bed, no distress. No tachypnea or accessory muscle of respiration use. HEENT: Shows Pallor , no scleral icterus. Oral mucous membrane is dry. NECK: Trachea central, no thyromegaly. LUNGS: Unlabored breathing. Decreased breath sound at the base. No wheeze or crackle. HEART: S1, S2, regular rate and rhythm. ABDOMEN: Soft, no tenderness , guarding or rigidity EXTREMITIES: No edema of feet. SKIN: No rash, no masses palpable. NEUROLOGICAL: The patient is awake, alert, oriented x3, mood and affect normal. LABS AND RADIOLOGY: Reviewed results see below Assessment : Patient with febrile neutropenia and now with evidence of gram- positive bacteremia resembling strep in this patient currently do not have specific localizing signs and symptoms of infection, PICC line could have been the source but that has been discontinued few days before admission to the hospital, chest x-ray did show overall improvement urine is negative abdominal soft on clinical examination Plan: 1-cefepime 2 g every 8hr to continue 2-repeat blood culture to document clearance of bacteremia 3-gentle IV fluid We will follow on clinical condition and cultures to further adjust medication if needed Thank you for this consultation we will follow the patient along with you Past Medical History Past Medical History: Atrial Fibrillation, Cancer, Osteoarthritis (OA) Additional Past Medical History / Comment(s): AML, chemotherapy History of Any Multi-Drug Resistant Organisms: None Reported Past Surgical History: Breast Surgery, Orthopedic Surgery Additional Past Surgical History / Comment(s): breast biopsy, arthroscopy left and right knee Past Anesthesia/Blood Transfusion Reactions: No Reported Reaction Past Psychological History: Anxiety Smoking Status: Never smoker Past Alcohol Use History: None Reported Past Drug Use History: None Reported - Past Family History Father Family Medical History: Cancer Mother Family Medical History: Diabetes Mellitus Medications and Allergies Home Medications Medication Instructions Recorded Confirmed Type PARoxetine [Paxil] 10 mg PO DAILY 12/17/18 09/02/21 History Metoprolol Tartrate [Lopressor] 25 mg PO BID 08/16/21 09/02/21 History Acyclovir 400 mg PO BID #42 tablet 08/21/21 09/02/21 Rx Levofloxacin [Levaquin] 500 mg PO DAILY 1 Days #21 tab 08/21/21 09/02/21 Rx Nystatin 100,000 Unit/ml Susp 4 ml PO QID #350 ml 08/21/21 09/02/21 Rx [Mycostatin Oral Susp] Midostaurin [Rydapt] 50 mg PO BID 08/30/21 09/02/21 History Allergies Allergy/AdvReac Type Severity Reaction Status Date / Time vancomycin AdvReac Itching Verified 09/03/21 16:48 Physical Exam Vitals: Vital Signs Temp Pulse Pulse Pulse Pulse Resp BP 09/03/21 12:55 99.1 F 87 94 97 18 09/03/21 12:22 98.9 F 87 18 121/59 09/03/21 12:17 98.9 F 87 18 121/59 09/03/21 09:49 86 18 118/65 09/03/21 08:00 98.9 F 92 20 113/70 09/03/21 07:25 98.9 F 84 22 99/49 09/03/21 06:55 99.3 F 69 22 106/63 09/03/21 06:45 98.2 F 78 22 106/53 09/03/21 05:23 100.0 F H 93 18 116/58 09/03/21 01:13 98.7 F 90 24 129/74 09/02/21 21:06 100.7 F H 96 18 131/53 BP BP BP Pulse Ox 09/03/21 12:55 120/75 108/70 105/68 96 09/03/21 12:22 98 09/03/21 12:17 98 09/03/21 09:49 97 09/03/21 08:00 98 09/03/21 07:25 98 09/03/21 06:55 97 09/03/21 06:45 09/03/21 05:23 100 09/03/21 01:13 97 09/02/21 21:06 97 Intake and Output 09/03/21 09/03/21 09/03/21 06:59 14:59 22:59 Intake Total 0 362 Balance 0 362 Intake: Blood Product 0 362 Platelet Pheresis Pas 0 362 Psoralen Unit [id number] Other: Weight 81.193 kg Results CBC & Chem 7: 09/04/21 05:45 09/02/21 22:25 Labs: Abnormal Lab Results - Last 24 Hours (Table) 09/02/21 09/02/21 Range/Units 22:25 22:25 WBC 0.2 L* (3.8-10.6) k/uL RBC 2.58 L (3.80-5.40) m/uL Hgb 8.4 L (11.4-16.0) gm/dL Hct 22.2 L (34.0-46.0) % MCHC 37.9 H (31.0-37.0) g/dL Plt Count 6 L* D (150-450) k/uL Sodium 136 L (137-145) mmol/L BUN 18 H (7-17) mg/dL Glucose 175 H (74-99) mg/dL Microbiology - Last 24 Hours (Table) 09/02/21 22:07 Blood Culture - Final Blood
[2021-09-04] MEDS: ACYCLOVIR 200 MG CAP PO SCH ×2 (08:49→20:44)
[2021-09-04] MEDS: PARoxetine 10 MG TAB PO SCH (08:50)
[2021-09-04] MEDS: CEFEPIME 2 GM in SODIUM CHLORIDE 0.9% 100 ML IVPB SCH ×2 (08:50→19:31)
[2021-09-04] MEDS: METOPROLOL TARTRATE 25 MG TAB PO SCH ×2 (08:50→20:44)
[2021-09-04] MEDS: NYSTATIN 100,000 UNIT/ML SUSP 500,000 UNIT/5 ML CUP PO SCH ×4 (08:50→20:44)
[2021-09-04 10:20] LABS: African American GFR (CKD) 100.9 (60.0-200.0); Anion Gap 12.6 mmol/L (4.00-12.00); BUN/Creat Ratio 14.99 Ratio (12.00-20.00); Blood Urea Nitrogen 11.2 mg/dL (9.0-27.0); Carbon Dioxide 24.3 mmol/L (21.6-31.8); Non-African American GFR(CKD) 87.1 (60.0-200.0); Potassium 3.8 mmol/L (3.5-5.5)
--- NOTE | 2021-09-04 15:18 | P.PN ---
Subjective Progress Note Date: 09/04/21 Pt doing well today, no new complaints. BCx growing strep spp. On cefepime. Objective - Vital Signs Vital signs: Vital Signs Temp 99.5 F 09/04/21 12:57 Pulse 82 09/04/21 12:57 Resp 17 09/04/21 12:57 BP 100/49 09/04/21 12:57 Pulse Ox 100 09/04/21 12:57 Intake & Output 09/03/21 09/04/21 09/04/21 18:59 06:59 18:59 Intake Total 362 1883 Balance 362 1883 Weight 81.193 kg Intake: Intake, IV Titration 1000 Amount Cefepime 2 gm In Sodium 100 Chloride 0.9% 100 ml @ 25 mls/hr IVPB Q8HR [facility] Rx# :[id number] Sodium Chloride 0.9% 1, 900 000 ml @ 75 mls/hr IV . [id number] [facility] Rx#:[id number] Oral 600 Blood Product 362 283 Platelet Pheresis Pas 362 Psoralen Unit [id number] Platelet Pheresis Pas 283 Psoralen Unit [id number] Other: Voiding Method Toilet Toilet # Voids 1 3 - Exam Gen: awake, alert HEENT: normocephalic, atraumatic, good hearing acuity, moist mucous membranes Resp: good air exchange, breathing comfortably with no accessory muscle use CVS: good distal perfusion x 4, GI: soft, NTTP, ND : no SPT, no CVAT, putnam catheter not present MSK: no pitting edema, no clubbing Neuro: non-focal, moving all extremities Psych: cooperative, euthymic mood - Labs CBC & Chem 7: 09/04/21 05:45 09/04/21 05:45 Labs: Abnormal Lab Results - Last 24 Hours (Table) 09/03/21 09/04/21 09/04/21 Range/Units 00:34 05:45 05:45 WBC 0.2 L* (3.8-10.6) k/uL RBC 2.11 L (3.80-5.40) m/uL Hgb 6.8 L* D (11.4-16.0) gm/dL Hct 18.1 L* (34.0-46.0) % MCHC 37.6 H (31.0-37.0) g/dL Plt Count 27 L D (150-450) k/uL Anion Gap 12.60 H (4.00-12.00) mmol/L Glucose 111 H (70-110) mg/dL Crossmatch See Detail Microbiology - Last 24 Hours (Table) 09/02/21 22:02 Blood Culture - Preliminary Blood No Growth after 24 hours 09/02/21 22:07 Blood Culture Gram Stain - Preliminary Blood Blood Culture - Preliminary Streptococcus species 09/02/21 22:07 Blood Culture - Final Blood Assessment and Plan Assessment: Neutropenic fever Acute myeloid leukemia on chemotherapy Pancytopenia secondary to above Follow-up cultures No identifiable source of infection Patient started empirically on cefepime and vancomycin Tylenol for fever IV fluid hydration with normal saline Monitor vital signs Oncology consultation ID consultation Patient is full code DVT prophylaxis mechanical due to thrombocytopenia Anticipated length of stay more than 2 midnights Anticipated discharge home
--- NOTE | 2021-09-04 16:41 | P.PN ---
Subjective Progress Note Date: 09/04/21 PRBC Today Afebrile t max 100.2 in 24 hours Blood cultures positive 1 of 3 ID following COntinue to hold rydapt Objective - Vital Signs Vital signs: Vital Signs Temp 98.5 F 09/04/21 08:53 Pulse 86 09/04/21 08:53 Resp 16 09/04/21 04:13 BP 110/66 09/04/21 08:53 Pulse Ox 99 09/04/21 04:13 Intake & Output 09/03/21 09/04/21 09/04/21 18:59 06:59 18:59 Intake Total 362 1883 Balance 362 1883 Weight 81.193 kg Intake: Intake, IV Titration 1000 Amount Cefepime 2 gm In Sodium 100 Chloride 0.9% 100 ml @ 25 mls/hr IVPB Q8HR [facility] [place] Rx# :[id number] Sodium Chloride 0.9% 1, 900 000 ml @ 75 mls/hr IV . [id number] [facility] Rx#:[id number] Oral 600 Blood Product 362 283 Platelet Pheresis Pas 362 Psoralen Unit [id number] Platelet Pheresis Pas 283 Psoralen Unit [id number] Other: Voiding Method Toilet Toilet # Voids 1 3 - Exam Alert and oriented Left lip swelling and scab from fall HR Tachy Lungs CTA Abdomen s/nd Ex no edema Left Humerus and shoulder eccymosis - Labs CBC & Chem 7: 09/04/21 05:45 09/04/21 05:45 Labs: Abnormal Lab Results - Last 24 Hours (Table) 09/03/21 09/04/21 09/04/21 Range/Units 00:34 05:45 05:45 WBC 0.2 L* (3.8-10.6) k/uL RBC 2.11 L (3.80-5.40) m/uL Hgb 6.8 L* D (11.4-16.0) gm/dL Hct 18.1 L* (34.0-46.0) % MCHC 37.6 H (31.0-37.0) g/dL Plt Count 27 L D (150-450) k/uL Anion Gap 12.60 H (4.00-12.00) mmol/L Glucose 111 H (70-110) mg/dL Crossmatch See Detail Microbiology - Last 24 Hours (Table) 09/02/21 22:02 Blood Culture - Preliminary Blood No Growth after 24 hours 09/02/21 22:07 Blood Culture Gram Stain - Preliminary Blood Blood Culture - Preliminary Streptococcus species 09/02/21 22:07 Blood Culture - Final Blood Assessment and Plan (1) AML (acute myeloid leukemia) Current Visit: Yes Status: Acute Priority: High Code(s): C92.00 - ACUTE MYELOBLASTIC LEUKEMIA, NOT HAVING ACHIEVED REMISSION SNOMED Code(s): 33540940 (2) Neutropenic fever Current Visit: Yes Status: Acute Code(s): D70.9 - NEUTROPENIA, UNSPECIFIED; R50.81 - FEVER PRESENTING WITH CONDITIONS CLASSIFIED ELSEWHERE SNOMED Code(s): 528071566 (3) Pancytopenia due to antineoplastic chemotherapy Current Visit: Yes Status: Acute Priority: High Code(s): D61.810 - ANTINEOPLASTIC CHEMOTHERAPY INDUCED PANCYTOPENIA; T45.1X5A - ADVERSE EFFECT OF ANTINEOPLASTIC AND IMMUNOSUP DRUGS, INIT SNOMED Code(s): 637659016152738 (4) Sepsis Current Visit: No Status: Acute Priority: High Code(s): A41.9 - SEPSIS, UNSPECIFIED ORGANISM SNOMED Code(s): 43507703 Plan: Transfuse PRBC today Monitor brusing on shoulder Hold Rydapt Await ID recs Daily CBC CMP
[2021-09-04] MEDS: MIDOSTAURIN 25 MG PO SCH ×2 (17:05→20:42)
[2021-09-04] MEDS: SODIUM CHLORIDE 0.9% 1,000 ML IV SCH (19:31)
[2021-09-04] MEDS: ACETAMINOPHEN TAB 325 MG TAB PO PRN (20:45)
[2021-09-05] MEDS: CEFEPIME 2 GM in SODIUM CHLORIDE 0.9% 100 ML IVPB SCH (03:19)
[2021-09-05] MEDS: SALT AND SODA MOUTHWASH 1,000 ML PO SCH ×6 (03:20→21:04)
[2021-09-05] MEDS: SODIUM CHLORIDE 0.9% 1,000 ML IV SCH (06:00)
[2021-09-05] MEDS: METOPROLOL TARTRATE 25 MG TAB PO SCH ×2 (08:11→21:03)
[2021-09-05] MEDS: ACYCLOVIR 200 MG CAP PO SCH ×2 (08:11→21:03)
[2021-09-05] MEDS: PARoxetine 10 MG TAB PO SCH (08:12)
[2021-09-05] MEDS: NYSTATIN 100,000 UNIT/ML SUSP 500,000 UNIT/5 ML CUP PO SCH ×4 (08:12→21:03)
[2021-09-05 08:51] LABS: HCT 21.2 % (34.0-46.0); Hyperchromasia Marked; MCH 31.4 pg (25.0-35.0); MCHC 37.8 g/dL (31.0-37.0); MCV 83.2 fL (80.0-100.0); Mean Platelet Volume 7.2; Poikilocytosis Slight; RBC 2.55 m/uL (3.80-5.40); RDW 13.6 % (11.5-15.5)
[2021-09-05 09:02] LABS: Platelet Count 20 k/uL (150-450); WBC 0.2 k/uL (3.8-10.6)
[2021-09-05 09:19] LABS: African American GFR (CKD) >90 (>60 ml/min/1.73 sqM); Anion Gap 4 mmol/L; Blood Urea Nitrogen 14 mg/dL (7-17); Calcium 9.3 mg/dL (8.4-10.2); Carbon Dioxide 31 mmol/L (22-30); Chloride 106 mmol/L (98-107); Glucose 107 mg/dL (74-99); Magnesium 1.8 mg/dL (1.6-2.3); Non-African American GFR(CKD) >90 (>60 ml/min/1.73 sqM); Potassium 4.4 mmol/L (3.5-5.1); Sodium 141 mmol/L (137-145)
[2021-09-05] MEDS: MIDOSTAURIN 25 MG PO SCH ×2 (10:33→19:02)
--- NOTE | 2021-09-05 11:23 | P.PN ---
Subjective Progress Note Date: 09/05/21 Principal diagnosis: neutropenic fever, AML In f/u pt is feeling pretty good, denies fever, oral irritation, N,V, SOB, abd pain, dysuria, diarrhea, swelling or acute bleeding. Bruising is stable. Objective - Vital Signs Vital signs: Vital Signs Temp 98.5 F 09/05/21 03:21 Pulse 88 09/05/21 08:10 Resp 18 09/05/21 03:21 BP 129/74 09/05/21 08:10 Pulse Ox 100 09/05/21 03:21 Intake & Output 09/04/21 09/05/21 09/05/21 18:59 06:59 18:59 Intake Total 890 1690 Balance 890 1690 Intake: Intake, IV Titration 1100 Amount Cefepime 2 gm In Sodium 200 Chloride 0.9% 100 ml @ 25 mls/hr IVPB Q8HR [facility] Rx# :[id number] Sodium Chloride 0.9% 1, 900 000 ml @ 75 mls/hr IV . [id number] [facility] Rx#:[id number] Oral 580 590 Blood Product 310 Rc Irr As1 Unit 310 [id number] Other: Voiding Method Toilet Toilet # Voids 2 3 - Constitutional General appearance: Present: average body habitus, cooperative, no acute distress - EENT Eyes: Present: anicteric sclerae, EOMI ENT: Present: hearing grossly normal, normal oropharynx - Respiratory Respiratory: bilateral: CTA - Cardiovascular Rhythm: regular Heart sounds: normal: S1, S2 Abnormal Heart Sounds: Absent: systolic murmur, diastolic murmur, rub, S3 Gallop, S4 Gallop, click, other - Peripheral edema leg Peripheral Edema: bilateral: None - Gastrointestinal General gastrointestinal: Present: normal bowel sounds, soft. Absent: absent bowel sounds, decreased bowel sounds, distended, hepatomegaly, hyperactive bowel sounds, organomegaly, rigid, scaphoid, splenomegaly, tenderness, umbilical hernia, ventral hernia - Integumentary Integumentary Comment(s): ecchymosis, no petechiae or hematomas Integumentary: Present: pale - Neurologic Neurologic: Present: CNII-XII intact - Musculoskeletal Musculoskeletal: Present: strength equal bilaterally - Psychiatric Psychiatric: Present: A&O x's 3, appropriate affect, intact judgment & insight - Labs CBC & Chem 7: 10/12/21 07:55 09/05/21 07:55 Labs: Abnormal Lab Results - Last 24 Hours (Table) 09/03/21 09/05/21 09/05/21 Range/Units 00:34 07:55 07:55 WBC 0.2 L* (3.8-10.6) k/uL RBC 2.55 L (3.80-5.40) m/uL Hgb 8.0 L (11.4-16.0) gm/dL Hct 21.2 L (34.0-46.0) % MCHC 37.8 H (31.0-37.0) g/dL Plt Count 20 L (150-450) k/uL Carbon Dioxide 31 H (22-30) mmol/L Glucose 107 H (74-99) mg/dL Crossmatch See Detail Microbiology - Last 24 Hours (Table) 09/02/21 22:07 Blood Culture Gram Stain - Final Blood Blood Culture - Final Alpha Hemolytic Streptococcus 09/04/21 05:45 Blood Culture - Preliminary Blood No Growth after 24 hours 09/02/21 22:02 Blood Culture - Preliminary Blood No Growth after 48 hours Assessment and Plan (1) Neutropenic fever Narrative/Plan: Admitted s/p 1st consolidation treatment with rydapt. 100.7F t max. Alpha hemolytic strep + BC, ID following, pt is on abx. New blood cultures pending. Pt should be able to receive GCSF since she is now a confirmed AML remission- will verify and see if Primary Oncologist wants to administer Current Visit: Yes Status: Acute Priority: High Code(s): D70.9 - NEUTROPENIA, UNSPECIFIED; R50.81 - FEVER PRESENTING WITH CONDITIONS CLASSIFIED ELSEWHERE SNOMED Code(s): 787186069 (2) Pancytopenia due to antineoplastic chemotherapy Narrative/Plan: Transfuse with irradiated blood products only Transfuse conservatively Hgb<7, plt <10,000, unless symptomatic. CBC daily Current Visit: Yes Status: Acute Priority: High Code(s): D61.810 - ANTINEOPLASTIC CHEMOTHERAPY INDUCED PANCYTOPENIA; T45.1X5A - ADVERSE EFFECT OF ANTINEOPLASTIC AND IMMUNOSUP DRUGS, INIT SNOMED Code(s): 283712363914869 (3) AML (acute myeloid leukemia) Narrative/Plan: S/P induction and 1st consolidation. 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 Rydapt held at this time, pending final culture. Current Visit: Yes Status: Acute Priority: High Code(s): C92.00 - ACUTE MYELOBLASTIC LEUKEMIA, NOT HAVING ACHIEVED REMISSION SNOMED Code(s): 43195036 (4) Contusion, lip Narrative/Plan: It looked as though there could be a viral component to pt lip lesion/contusion. Discussed with ID, no topical antiviral necessary. Current Visit: Yes Status: Acute Priority: High Code(s): S00.531A - CONTUSION OF LIP, INITIAL ENCOUNTER SNOMED Code(s): 82923563
--- NOTE | 2021-09-05 11:37 | P.PN ---
Subjective Progress Note Date: 09/05/21 Pt has no new complaints today. Fever profile improving, Tmax overnight was 99.9, not sustained. BCx growing alpha-hemolytic strep; repeat BCx NGTD. ID consult appreciated Objective - Vital Signs Vital signs: Vital Signs Temp 98.5 F 09/05/21 03:21 Pulse 88 09/05/21 08:10 Resp 18 09/05/21 03:21 BP 129/74 09/05/21 08:10 Pulse Ox 100 09/05/21 03:21 Intake & Output 09/04/21 09/05/21 09/05/21 18:59 06:59 18:59 Intake Total 890 1690 Balance 890 1690 Intake: Intake, IV Titration 1100 Amount Cefepime 2 gm In Sodium 200 Chloride 0.9% 100 ml @ 25 mls/hr IVPB Q8HR [facility] Rx# :[id number] Sodium Chloride 0.9% 1, 900 000 ml @ 75 mls/hr IV . [id number] [facility] Rx#:[id number] Oral 580 590 Blood Product 310 Rc Irr As1 Unit 310 [id number] Other: Voiding Method Toilet Toilet # Voids 2 3 - Exam Gen: awake, alert HEENT: normocephalic, atraumatic, good hearing acuity, moist mucous membranes Resp: good air exchange, breathing comfortably with no accessory muscle use CVS: good distal perfusion x 4, GI: soft, NTTP, ND : no SPT, no CVAT, putnam catheter not present MSK: no pitting edema, no clubbing Neuro: non-focal, moving all extremities Psych: cooperative, euthymic mood - Labs CBC & Chem 7: 09/05/21 07:55 09/05/21 07:55 Labs: Abnormal Lab Results - Last 24 Hours (Table) 09/03/21 09/05/21 09/05/21 Range/Units 00:34 07:55 07:55 WBC 0.2 L* (3.8-10.6) k/uL RBC 2.55 L (3.80-5.40) m/uL Hgb 8.0 L (11.4-16.0) gm/dL Hct 21.2 L (34.0-46.0) % MCHC 37.8 H (31.0-37.0) g/dL Plt Count 20 L (150-450) k/uL Carbon Dioxide 31 H (22-30) mmol/L Glucose 107 H (74-99) mg/dL Crossmatch See Detail Microbiology - Last 24 Hours (Table) 09/02/21 22:07 Blood Culture Gram Stain - Final Blood Blood Culture - Final Alpha Hemolytic Streptococcus 09/04/21 05:45 Blood Culture - Preliminary Blood No Growth after 24 hours 09/02/21 22:02 Blood Culture - Preliminary Blood No Growth after 48 hours Assessment and Plan Assessment: Neutropenic fever Acute myeloid leukemia on chemotherapy Pancytopenia secondary to above Follow-up cultures No identifiable source of infection Patient started empirically on cefepime and vancomycin Tylenol for fever IV fluid hydration with normal saline Monitor vital signs Oncology consultation ID consultation Patient is full code DVT prophylaxis mechanical due to thrombocytopenia Anticipated length of stay more than 2 midnights Anticipated discharge home
[2021-09-05 12:35] LABS: % Iron Saturation 85.87 (12.00-45.00)
--- NOTE | 2021-09-05 22:48 | PN ---
PROGRESS NOTE DATE OF SERVICE: 09/05/2021 REASON FOR FOLLOWUP: Fever and streptococcal bacteremia. INTERVAL HISTORY: The patient has been afebrile. The patient has been breathing comfortably. Denies having any chest pain, shortness of breath or cough. No abdominal pain or diarrhea. PHYSICAL EXAMINATION: Blood pressure 135/76, pulse of 86, temperature 99.1. She is 99% on room air. General description is a middle-aged female lying in bed in no distress. RESPIRATORY SYSTEM: Unlabored breathing. Clear to auscultation. HEART: S1, S2. Regular rate and rhythm. ABDOMEN: Soft. No tenderness. LABS: Hemoglobin is 8, white count 0.2. Creatinine 0.71. Blood culture with streptococcus. DIAGNOSTIC IMPRESSION AND PLAN: Patient admitted to hospital with a fever and subsequently did have a positive blood culture with staphylococcus. The patient's antibiotic was adjusted to cefazolin. Finish therapy with oral Keflex, as no evidence of any deep focus. Continue supportive care. MMODL / IJN: [id number] / JAIME
[2021-09-05] MEDS ORDERED: FILGRASTIM-SNDZ 480 MCG/0.8 ML SYRINGE SQ STA (23:08)
[2021-09-06] MEDS: SODIUM CHLORIDE 0.9% 1,000 ML IV SCH ×2 (03:46→08:32)
[2021-09-06] MEDS: SALT AND SODA MOUTHWASH 1,000 ML PO SCH ×3 (03:47→12:10)
[2021-09-06] MEDS: ACETAMINOPHEN TAB 325 MG TAB PO PRN (06:16)
[2021-09-06 06:37] LABS: HGB 7.5 gm/dL (11.4-16.0); Hyperchromasia Moderate; MCH 32.1 pg (25.0-35.0); MCHC 37.9 g/dL (31.0-37.0); MCV 84.8 fL (80.0-100.0); Mean Platelet Volume 7.6; Poikilocytosis Slight; RBC 2.35 m/uL (3.80-5.40); RDW 12.5 % (11.5-15.5)
[2021-09-06 07:56] LABS: WBC 0.2 k/uL (3.8-10.6)
[2021-09-06 07:57] LABS: Platelet Count 14 k/uL (150-450)
[2021-09-06 08:00] LABS: HCT 19.9 % (34.0-46.0)
[2021-09-06] MEDS: ACYCLOVIR 200 MG CAP PO SCH (08:32)
[2021-09-06] MEDS: NYSTATIN 100,000 UNIT/ML SUSP 500,000 UNIT/5 ML CUP PO SCH ×2 (08:32→12:11)
[2021-09-06] MEDS: METOPROLOL TARTRATE 25 MG TAB PO SCH (08:32)
[2021-09-06] MEDS: PARoxetine 10 MG TAB PO SCH (08:32)
[2021-09-06] MEDS: MIDOSTAURIN 25 MG PO SCH (08:32)
[2021-09-06 11:36] VITALS: BP 106/66; PULSE 73; RESP 16; TEMP 99.5
--- NOTE | 2021-09-06 14:48 | PN ---
PROGRESS NOTE DATE OF SERVICE: 09/06/2021 REASON FOR FOLLOWUP: Febrile neutropenia and streptococcal bacteremia. INTERVAL HISTORY: The patient is afebrile. The patient is breathing comfortably. The patient did have a low-grade fever of 100.1 around 5 this morning though. The patient denies any chest pain, shortness of breath or cough. No nausea, vomiting, abdominal pain or diarrhea. PHYSICAL EXAMINATION: Blood pressure 106/56, pulse 73, temperature 99.5. She is 98% on room air. General description is a middle-aged female up in the bed in no distress. Respiratory system: Unlabored breathing, clear to auscultation anteriorly. Heart S1, S2. Regular rate and rhythm. Abdomen: Soft. No tenderness. LABS: Hemoglobin is 7.5, white count 0.2. Blood culture repeat has been negative so far. DIAGNOSTIC IMPRESSION AND PLAN: Patient with low-grade fever. This patient did have extensive workup and positive blood culture with Streptococcus which could sometimes be a contaminant as we do not have any obvious deep focus of infection. Finish therapy with a short course of oral Keflex and close outpatient followup. Continue supportive care. MMODL / IJN: [id number] / JAIME
--- NOTE | 2021-09-06 15:14 | P.PN ---
Subjective Progress Note Date: 09/06/21 Principal diagnosis: Febrile Neutropenia Low grade fever within 24 hours 100.1, overall she is feeling better. Left shoulder is hurting a bit more, large eccymosis after fall at home Objective - Vital Signs Vital signs: Vital Signs Temp 99.5 F 09/06/21 11:12 Pulse 73 09/06/21 11:12 Resp 16 09/06/21 11:12 BP 106/66 09/06/21 11:12 Pulse Ox 98 09/06/21 11:12 Intake & Output 09/05/21 09/06/21 09/06/21 18:59 06:59 18:59 Intake Total 950 100 Balance 950 100 Intake: Intake, IV Titration 950 Amount Sodium Chloride 0.9% 1, 900 000 ml @ 75 mls/hr IV . [id number] [facility] Rx#:[id number] ceFAZolin 1,000 mg In 50 Sodium Chloride 0.9% 50 ml @ 100 mls/hr IVPB Q8H [facility] Rx#:[id number] Oral 100 Other: Voiding Method Toilet Toilet # Voids 3 - Exam Alert and oriented Left lip swelling and scab from fall HR Tachy Lungs CTA Abdomen s/nd Ex no edema Left Humerus and shoulder eccymosis - Labs CBC & Chem 7: 09/06/21 05:38 09/05/21 07:55 Labs: Abnormal Lab Results - Last 24 Hours (Table) 09/06/21 Range/Units 05:38 WBC 0.2 L* (3.8-10.6) k/uL RBC 2.35 L (3.80-5.40) m/uL Hgb 7.5 L (11.4-16.0) gm/dL Hct 19.9 L* (34.0-46.0) % MCHC 37.9 H (31.0-37.0) g/dL Plt Count 14 L* (150-450) k/uL Microbiology - Last 24 Hours (Table) 09/04/21 05:45 Blood Culture - Preliminary Blood No Growth after 48 hours 09/02/21 22:02 Blood Culture - Preliminary Blood No Growth after 72 hours Assessment and Plan (1) AML (acute myeloid leukemia) Current Visit: Yes Status: Acute Priority: High Code(s): C92.00 - ACUTE MYELOBLASTIC LEUKEMIA, NOT HAVING ACHIEVED REMISSION SNOMED Code(s): 18756720 (2) Neutropenic fever Current Visit: Yes Status: Acute Priority: High Code(s): D70.9 - NEUTROPENIA, UNSPECIFIED; R50.81 - FEVER PRESENTING WITH CONDITIONS CLASSIFIED ELSEWHERE SNOMED Code(s): 497336378 (3) Pancytopenia due to antineoplastic chemotherapy Current Visit: Yes Status: Acute Priority: High Code(s): D61.810 - ANTINEOPLASTIC CHEMOTHERAPY INDUCED PANCYTOPENIA; T45.1X5A - ADVERSE EFFECT OF ANTINEOPLASTIC AND IMMUNOSUP DRUGS, INIT SNOMED Code(s): 333412692585992 (4) Sepsis Current Visit: No Status: Acute Priority: High Code(s): A41.9 - SEPSIS, UNSPECIFIED ORGANISM SNOMED Code(s): 81503628 Plan: Transfuse PRBC today Monitor brusing on shoulder Can Start back on Rydapt Discharge ok per ID recommended antibiotics Left Shoulder Xray If discharged follow-up in office tomorrow Physician attest: I have cpompleted the full history and physical and agree with above dictation, dictated as a ascribe.
[2021-09-06] MEDS ORDERED: FILGRASTIM-SNDZ 480 MCG/0.8 ML SYRINGE SQ SCH (18:00)
--- NOTE | 2021-09-06 18:05 | P.DS ---
Providers Date of admission: 09/02/21 23:12 Expected date of discharge: 09/06/21 Attending physician: Armando Barbosa MD Consults: 09/02/21 23:42 Consult Physician Urgent Consulting Provider: Enedelia Kelley Consult Reason/Comments: Pancytopenia, neutropenic fever, mL Do you want consulting provider notified?: Yes 09/03/21 14:36 Consult Physician Routine Consulting Provider: Denise Marcano Consult Reason/Comments: Neutropenic Fever, prolonged neutropenia Do you want consulting provider notified?: Yes Primary care physician: Kelly Ahuja Hospital Course: Neutropenic fever Acute myeloid leukemia on chemotherapy Pancytopenia secondary to above Patient was admitted for neutropenic fever with absolute white blood cell count of 200. She was started on broad-spectrum antibiotics with vancomycin and cefepime. Blood cultures did grow off alpha hemolytic strep, but no source of infection could be found. ID was consulted, and recommended antibiotics. On discharge she had completed 4 days of IV antibiotics, and was transitioned to 10 additional days of Keflex 500 mg 3 times a day. In addition, oncology was consulted, and recommended G-CSF for which she received 2 injections prior to discharge. Assessment: Gen: awake, alert HEENT: normocephalic, atraumatic, good hearing acuity, moist mucous membranes Resp: good air exchange, breathing comfortably with no accessory muscle use CVS: good distal perfusion x 4, GI: soft, NTTP, ND : no SPT, no CVAT, putnam catheter not present MSK: no pitting edema, no clubbing Neuro: non-focal, moving all extremities Psych: cooperative, euthymic mood Patient Condition at Discharge: Good Plan - Discharge Summary New Discharge Prescriptions: New Cephalexin [Keflex] 500 mg PO Q8HR 10 Days #30 cap Continue PARoxetine [Paxil] 10 mg PO DAILY Acyclovir 400 mg PO BID #42 tablet Metoprolol Tartrate [Lopressor] 25 mg PO BID Nystatin 100,000 Unit/ml Susp [Mycostatin Oral Susp] 4 ml PO QID #350 ml Discontinued Levofloxacin [Levaquin] 500 mg PO DAILY 1 Days #21 tab No Action Midostaurin [Rydapt] 50 mg PO BID Discharge Medication List PARoxetine [Paxil] 10 mg PO DAILY 12/17/18 [History] Metoprolol Tartrate [Lopressor] 25 mg PO BID 08/16/21 [History] Acyclovir 400 mg PO BID #42 tablet 08/21/21 [Rx] Nystatin 100,000 Unit/ml Susp [Mycostatin Oral Susp] 4 ml PO QID #350 ml 08/21/21 [Rx] Midostaurin [Rydapt] 50 mg PO BID 08/30/21 [History] Cephalexin [Keflex] 500 mg PO Q8HR 10 Days #30 cap 09/06/21 [Rx] Follow up Appointment(s)/Referral(s): Kelly Ahuja MD [Primary Care Provider] - 1-2 days (Patient to call for appointment) Patient Instructions/Handouts: Cephalexin (By mouth), Neutropenia (DC), Neutropenic Precautions (GEN) Discharge Disposition: HOME SELF-CARE
--- NOTE | 2021-09-06 18:45 | XR ---
EXAMINATION TYPE: XR shoulder complete LT DATE OF EXAM: 09/06/2021 COMPARISON: NONE HISTORY: Shoulder pain TECHNIQUE: 3 views FINDINGS: Glenohumeral joint is intact. I see no fracture nor dislocation. Joint spaces are normal. IMPRESSION: Negative left shoulder exam. No fracture.
[2021-09-06 22:12] LABS: African American GFR (CKD) 97.9 (60.0-200.0); Anion Gap 13.8 mmol/L (4.00-12.00); BUN/Creat Ratio 14.23 Ratio (12.00-20.00); Blood Urea Nitrogen 10.9 mg/dL (9.0-27.0); Carbon Dioxide 24.9 mmol/L (21.6-31.8); Non-African American GFR(CKD) 84.5 (60.0-200.0); Potassium 3.9 mmol/L (3.5-5.5)
--- NOTE | 2021-09-11 06:30 | CDI ---
Documentation Clarification Form Date: 09/11/2021 06:11:00 AM From: Елена Bain Admit Date: 09/02/2021 11:12:00 PM Patient Name: Domi Perrin Visit Number: [id number] Discharge Date: 09/06/2021 06:00:00 PM ATTENTION: The Clinical Documentation Specialists (CDI) and [facility] Coding Staff appreciate your assistance in clarifying documentation. Please respond to the clarification below the line at the bottom and electronically sign. The CDI & [facility] Coding staff will review the response and follow-up if needed. Please note: Queries are made part of the Legal Health Record. If you have any questions, please contact the author of this message via ITS. Dr. Armando Barbosa The patient presented with the neutropenic fever with AML and Antineoplastic chemotherapy induced pancytopenia. Oncology documents in consult and PN's that patient has sepsis. Diagnosis of sepsis is not carried to [facility]. Please clarify of patient had sepsis or was it ruled out. History/Risk Factors: AML Clinical Indicators: WBC: 0.2 Lactic acid: Blood cultures: alpha hemolytic strep. No source of infection Vitals signs: 100.7 F, 96 bpm, 18, 131/53, 97% RA Treatment: broad spectrum antibiotics ID Consult: Patient now with evidence of gram positive bacteremia resembling strep in this patient currently does not have specific localizing signs and symptoms of infection. Antibiotics: Cefepime discharged on oral Keflex In your professional opinion, please clarify if patient had sepsis or was it ruled out: [ ] Sepsis POA [ ] Sepsis, Not POA [ ] Sepsis ruled out [ ] Other, please specify [ ] Unable to determine SIRS Criteria: 2 or more of the following may indicate SIRS -Temperature < 96.8F (36C) or > 101.0F (38.3C) -Heart Rate > 90 bpm -Respiratory Rate > 20 breaths/min or PaCO2 < 32 mmHg -White Blood Cell Count > 12,000 or < 4,000 cells/mm3 or > 10% bands unable to determine, this is initial assessment of patient admission this query should be directed to the physician who carried over her care MTDD
--- NOTE | 2021-09-20 13:16 | CDI ---
Documentation Clarification Form Date: 09/11/2021 06:11:00 AM From: Елена Bain Admit Date: 09/02/2021 11:12:00 PM Patient Name: Domi Perrin Visit Number: [id number] Discharge Date: 09/06/2021 06:00:00 PM ATTENTION: The Clinical Documentation Specialists (CDI) and [facility] Coding Staff appreciate your assistance in clarifying documentation. Please respond to the clarification below the line at the bottom and electronically sign. The CDI & [facility] Coding staff will review the response and follow-up if needed. Please note: Queries are made part of the Legal Health Record. If you have any questions, please contact the author of this message via ITS. Dr. Ar Bailey The patient presented with the neutropenic fever with AML and Antineoplastic chemotherapy induced pancytopenia. Oncology documents in consult and PN's that patient has sepsis. Diagnosis of sepsis is not carried to [facility]. Please clarify of patient had sepsis or was it ruled out. History/Risk Factors: AML Clinical Indicators: WBC: 0.2 Lactic acid: Blood cultures: alpha hemolytic strep. No source of infection Vitals signs: 100.7 F, 96 bpm, 18, 131/53, 97% RA Treatment: broad spectrum antibiotics ID Consult: Patient now with evidence of gram positive bacteremia resembling strep in this pattientcurrently does not have specific localizing signs and symptoms of infection. Antibiotics: Cefepime discharged on oral Keflex IV Bolus: In your professional opinion, please clarify if patient had sepsis or was it ruled out: [ x] Sepsis POA [ ] Sepsis, Not POA [ ] Sepsis ruled out [ ] Other, please specify [ ] Unable to determine SIRS Criteria: 2 or more of the following may indicate SIRS -Temperature < 96.8F (36C) or > 101.0F (38.3C) -Heart Rate > 90 bpm -Respiratory Rate > 20 breaths/min or PaCO2 < 32 mmHg -White Blood Cell Count > 12,000 or < 4,000 cells/mm3 or > 10% bands MTDD
== END 2021-09-06 18:00 | disposition home or self-care (01) | DRG 871 ==
LOC: EC 20:55 → 5NMEDONC 23:12
PROVIDERS: ADMIT Internal Medicine; ATTEND Internal Medicine
PROC: 30233N1 Transfusion of Nonautologous Red Blood Cells into Peripheral Vein, Percutaneous Approach (ICD-10-PCS; 2021-09-02)
PROC: 30233R1 Transfusion of Nonautologous Platelets into Peripheral Vein, Percutaneous Approach (ICD-10-PCS; principal; 2021-09-03)
DX: A40.9 Streptococcal sepsis, unspecified (principal); D61.810 Antineoplastic chemotherapy induced pancytopenia; J18.9 Pneumonia, unspecified organism; C92.00 Acute myeloblastic leukemia, not having achieved remission; J98.11 Atelectasis; T45.1X5A Adverse effect of antineoplastic and immunosuppressive drugs, initial encounter; F41.9 Anxiety disorder, unspecified; I48.91 Unspecified atrial fibrillation; K13.0 Diseases of lips; R50.81 Fever presenting with conditions classified elsewhere; S00.531A Contusion of lip, initial encounter; W19.XXXA Unspecified fall, initial encounter; Y92.009 Unspecified place in unspecified non-institutional (private) residence as the place of occurrence of the external cause; S00.83XA Contusion of other part of head, initial encounter; M25.512 Pain in left shoulder; M19.90 Unspecified osteoarthritis, unspecified site; Z98.890 Other specified postprocedural states; Z20.822 Contact with and (suspected) exposure to COVID-19; Z79.899 Other long term (current) drug therapy; Z83.3 Family history of diabetes mellitus; Z88.1 Allergy status to other antibiotic agents; Z80.9 Family history of malignant neoplasm, unspecified
CPT/HCPCS: 36415; 71046; 80048; 80053; 81003; 82728; 83540; 83550; 83605; 83735; 84484; 85025; 86850; 86900; 86901; 86920; 87040; 87636; 93005; 96360; 99291

== ENCOUNTER → 2021-09-19 | Outpatient (CLI) | payer BC ==
--- NOTE | 2021-09-19 10:38 | XR ---
EXAMINATION TYPE: XR ankle complete RT DATE OF EXAM: 09/19/2021 CLINICAL HISTORY: Pain and swelling. TECHNIQUE: Frontal, lateral and oblique images of the right ankle are obtained. COMPARISON: None. FINDINGS: There is no acute fracture/dislocation evident in the right ankle. The ankle mortise appe ars within normal limits. Moderate-sized superior and inferior calcaneal spurs. Mild soft tissue swel ling over the lateral malleolus. IMPRESSION: As above.
== END | disposition home or self-care (01) ==
LOC: RADXRMAIN 09:59
PROVIDERS: ATTEND Internal Medicine Hematology & Oncology
DX: M77.31 Calcaneal spur, right foot (principal)

== ENCOUNTER 2021-10-13 08:57 | Inpatient (IN) | payer BC ==
[2021-10-13] MEDS ORDERED: SODIUM CHLORIDE 0.9% 1,000 ML IV SCH (09:45)
[2021-10-13 10:31] LABS: Prothrombin Time 10.5 sec (9.0-12.0)
[2021-10-13 10:57] LABS: Anisocytosis Moderate; Basophils % (A) 1 %; Eosinophils # (A) 0.1 k/uL (0-0.7); Eosinophils % (A) 4 %; HCT 32.6 % (34.0-46.0); Lymphocytes # (A) 0.4 k/uL (1.0-4.8); Lymphocytes % (A) 11 %; MCH 32.2 pg (25.0-35.0); MCHC 34.5 g/dL (31.0-37.0); Macrocytosis Slight; Mean Platelet Volume 8.1; Monocytes # (A) 0.4 k/uL (0-1.0); Monocytes % (A) 12 %; Neutrophils # (A) 2.4 k/uL (1.3-7.7); Neutrophils % (A) 70 %; Poikilocytosis Slight; RBC 3.49 m/uL (3.80-5.40); RDW 20.5 % (11.5-15.5); WBC 3.5 k/uL (3.8-10.6)
[2021-10-13 11:00] LABS: ALT 47 U/L (4-34); AST 45 U/L (14-36); African American GFR (CKD) 76 (>60 ml/min/1.73 sqM); Albumin/Globulin Ratio 1.4; Alkaline Phosphatase 71 U/L (38-126); Anion Gap 6 mmol/L; Blood Urea Nitrogen 19 mg/dL (7-17); Calcium 9.5 mg/dL (8.4-10.2); Carbon Dioxide 30 mmol/L (22-30); Chloride 105 mmol/L (98-107); Globulin 2.8 g/dL; Glucose 108 mg/dL (74-99); Non-African American GFR(CKD) 66 (>60 ml/min/1.73 sqM); Phosphorus 4.4 mg/dL (2.5-4.5); Potassium 3.8 mmol/L (3.5-5.1); Sodium 141 mmol/L (137-145); Total Bilirubin 0.4 mg/dL (0.2-1.3); Total Protein 6.8 g/dL (6.3-8.2); Uric Acid 4.9 mg/dL (3.7-7.4)
[2021-10-13] MEDS ORDERED: ONDANSETRON 4 MG/2 ML VIAL IVP PRN (11:00)
[2021-10-13 11:07] LABS: HGB 11.2 gm/dL (11.4-16.0)
[2021-10-13 11:08] LABS: MCV 93.4 fL (80.0-100.0); Platelet Count 185 k/uL (150-450)
[2021-10-13] MEDS ORDERED: LIDOCAINE 1% INJ 10MG/ML (20 ML MDV) ONE (12:27)
[2021-10-13] MEDS ORDERED: LIDOCAINE 1% INJ 10MG/ML (20 ML MDV) SQ ONE (12:40)
[2021-10-13] MEDS: SODIUM CHLORIDE 0.9% 1,000 ML IV SCH ×3 (12:42→21:04)
[2021-10-13] MEDS: SALT AND SODA MOUTHWASH 1,000 ML PO SCH ×2 (12:43→17:08)
[2021-10-13] MEDS: ONDANSETRON 16 MG in SODIUM CHLORIDE 0.9% 50 ML IVPB SCH (14:02)
[2021-10-13] MEDS: DEXAMETHASONE SOD PHOSPHATE 10 MG/ML 1 ML VIAL IV SCH (14:15)
[2021-10-13] MEDS: FAMOTIDINE 20 MG/2 ML VIAL IV SCH (14:15)
[2021-10-13] MEDS: prednisoLONE ACETATE 1% OPHTH DROPS 5 ML BTL BOTH EYES SCH ×3 (15:05→21:02)
[2021-10-13] MEDS: CYTARABINE IV SCH (15:07)
[2021-10-13] MEDS: SODIUM CHLORIDE 0.9% IV SCH (15:07)
--- NOTE | 2021-10-13 15:13 | IR ---
EXAMINATION TYPE: IR cvc insert >=5 years DATE OF EXAM: 10/13/2021 COMPARISON: NONE CLINICAL HISTORY: Infection Needs long-term intravenous access for antibiotics. PROCEDURE: Hand hygiene obtained with soap and water and alcohol-based hand rub. After informed consent, the skin overlying the left basilic vein was localized with ultrasound and no chago to be compressible and patent. An ultrasound image was obtained and submitted on the patient's c martin. The overlying skin was prepped and draped and Lidocaine was used for local anesthesia. A skin binh was made with a scalpel. Access was gained to the vein under ultrasound guidance with a 21 gau ge needle and a 0.018 inch wire was advanced. Access site was dilated with Peel-Away sheath and cath eter tailored to the appropriate length and advanced such that the distal tip is at the cavoatrial ju nction. Spot image was obtained verifying placement. Catheter was fixed to the skin and a sterile d ressing was placed following hemostasis. Catheter was aspirated and flushed with saline. Patient wa s discharged in stable condition without complication. Maximal barrier technique is utilized. Ultras ound image is documented on the chart. Ultrasound used with sterile technique. Fluoro time and fluoroscopic images submitted to document procedure: 0.2 minutes fluoroscopy time, 16 intraoperative C-arm images document the procedure IMPRESSION: STATUS POST ULTRASOUND AND FLUOROSCOPIC GUIDED PICC LINE PLACEMENT, READY FOR USE. THIS PROCEDURE WAS PERFORMED BY THE UNDERSIGNED.
[2021-10-13 18:31] LABS: Appearance,Urine Clear (Clear); Bacteria,Urine Rare /hpf; Bilirubin,Urine Negative (Negative); Blood,Urine Negative (Negative); Color,Urine Light Yellow; Glucose,Urine (UA) Negative (Negative); Ketones,Urine Negative (Negative); Leukocyte Esterase,Urine Trace (Negative); Mucus,Urine Rare /hpf; Nitrite,Urine Negative (Negative); PH, Urine 5.5 (5.0-8.0); Protein,Urine Negative (Negative); RBC,Urine <1 /hpf (0-5); Specific Gravity,Urine 1.006 (1.001-1.035); Urobilinogen,Urine <2.0 mg/dL (<2.0); WBC,Urine 3 /hpf (0-5)
--- NOTE | 2021-10-13 20:06 | P.HPIM ---
History of Present Illness H&P Date: 10/13/21 Chief Complaint: Timed Chemo AML Mrs. Perrin is a very pleasant 61-year-old female who we saw in end of May 2021 regarding sudden onset macrocytic anemia and thrombocytopenia, her labs had been normal up until 06/07 on routine lab drawn by her PCP. She had fever when seen at her PCP ofc and was sent to ER for garner culture workup, IV antibiotics and evaluation. Patient reported 12lb wt loss, declining energy levels and decreased stamina in the last few weeks. She was Covid negative. Iron studies significantly elevated (this was prior to transfusion), thyroid studies were normal, LDH elevated 438. MCV 109.7, renal function is normal. Hemoglobin 5.8 on admission, platelet count 38,000. Patient has had no other acute changes in her health, no other complaints. She received her second covid vaccine 04/07/21. She had BM bx and aspirate 06/21/21, AML diagnosis. She was initiated immediately on induction chemo with 7+3 regimen. She required intubation and extensive supportive care, transfusions. She recovered nicely, had f/u BM Bx and asp 07/25 revealing no ressidual AML, cytogenetics negative, NGS pending. Acheived remission post induction per BMT team in [place]. 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 Discharged with instructions to continue Rydapt 50mg bid. Recent pRBC and plt transfusion for chemotherapy related pancytopenia. She presents today for a postponed cycle 2 of consolidation, secondary to slow recovery of neuropphils. Review of Systems All systems: negative Constitutional: Reports as per HPI Past Medical History Past Medical History: Atrial Fibrillation, Cancer, GERD/Reflux, Hearing Disorder / Deafness, Osteoarthritis (OA), Pneumonia, Syncope Additional Past Medical History / Comment(s): AML, chemotherapy, neutropenia, neutropenic fever, pancytopenia, pneumonia/vented, paroxysmal Afib, syncope/cause unknown, occasional R ear tinnitis, diverticular disease/benign polyp, UTI. History of Any Multi-Drug Resistant Organisms: None Reported Past Surgical History: Breast Surgery, Orthopedic Surgery Additional Past Surgical History / Comment(s): BMA, bronchoscopy, colonoscopy, breast biopsy, arthroscopy left and right knee Past Anesthesia/Blood Transfusion Reactions: No Reported Reaction Additional Past Anesthesia/Blood Transfusion Reaction / Comment(s): Pt has received blood without reaction. Past Psychological History: Anxiety Additional Psychological History / Comment(s): Pt resides with her spouse who is very helpful. She uses a walker occasionally. She has not driven since diagnosis/spouse drives. Smoking Status: Never smoker Past Alcohol Use History: None Reported Past Drug Use History: None Reported - Past Family History Father Family Medical History: Cancer Mother Family Medical History: Coronary Artery Disease (CAD), Dementia Additional Family Medical History / Comment(s): Mother had coronary stents. She is from dementia. Medications and Allergies Home Medications Medication Instructions Recorded Confirmed Type PARoxetine [Paxil] 10 mg PO DAILY 12/17/18 10/13/21 History Acyclovir 400 mg PO BID #42 tablet 08/21/21 10/13/21 Rx Metoprolol Tartrate [Lopressor] 25 mg PO BID 10/13/21 10/13/21 History Midostaurin [Rydapt] 25 mg PO DIRECTED 10/13/21 10/13/21 History Allergies Allergy/AdvReac Type Severity Reaction Status Date / Time vancomycin Allergy Rash/Hives Verified 10/13/21 09:41 Physical Exam Vitals: Vital Signs Temp Pulse Resp BP Pulse Ox 10/13/21 15:16 98 F 65 14 103/63 98 10/13/21 12:56 98.4 F 70 16 133/73 97 Intake and Output 10/13/21 10/13/21 10/13/21 06:59 14:59 22:59 Other: Weight 81.81 kg Alert and oriented Alopecia NAD HR Tachy Lungs CTA Abdomen s/nd Ex no edema Results CBC & Chem 7: 10/13/21 10:10 10/13/21 10:10 Labs: Abnormal Lab Results - Last 24 Hours (Table) 10/13/21 10/13/21 Range/Units 10:10 10:10 WBC 3.5 L (3.8-10.6) k/uL RBC 3.49 L (3.80-5.40) m/uL Hgb 11.2 L D (11.4-16.0) gm/dL Hct 32.6 L (34.0-46.0) % RDW 20.5 H (11.5-15.5) % Lymphocytes # 0.4 L (1.0-4.8) k/uL BUN 19 H (7-17) mg/dL Glucose 108 H (74-99) mg/dL AST 45 H (14-36) U/L ALT 47 H (4-34) U/L Thrombosis Risk Factor Assmnt - Choose All That Apply Any of the Below Risk Factors Present?: Yes Each Factor Represents 1 point: Age 41-60 years, Obesity (BMI >25) Other Risk Factors: Yes Each Risk Factor Represents 2 Points: Malignancy Other congenital or acquired thrombophilia - If yes, enter type in comment: No Thrombosis Risk Factor Assessment Total Risk Factor Score: 4 Thrombosis Risk Factor Assessment Level: Moderate Risk Assessment and Plan Plan: Assessment and Plan (1) AML (acute myeloid leukemia) Current Visit: Yes Status: Acute Priority: High Code(s): C92.00 - ACUTE MYELOBLASTIC LEUKEMIA, NOT HAVING ACHIEVED REMISSION SNOMED Code(s): 10962341 (2) Neutropenic fever Current Visit: Yes Status: Acute Priority: High Code(s): D70.9 - NEUTROPENIA, UNSPECIFIED; R50.81 - FEVER PRESENTING WITH CONDITIONS CLASSIFIED ELSEWHERE SNOMED Code(s): 013849880 (3) Pancytopenia due to antineoplastic chemotherapy Current Visit: Yes Status: Acute Priority: High Code(s): D61.810 - ANTINEOPLASTIC CHEMOTHERAPY INDUCED PANCYTOPENIA; T45.1X5A - ADVERSE EFFECT OF ANTINEOPLASTIC AND IMMUNOSUP DRUGS, INIT SNOMED Code(s): 424839076344236 (4) Sepsis Current Visit: No Status: Acute Priority: High Code(s): A41.9 - SEPSIS, UNSPECIFIED ORGANISM SNOMED Code(s): 05609721 Plan: Cycle #2, Day One HIDAC Consolidation Can Start back on Rydapt home meds ordered
[2021-10-13] MEDS: METOPROLOL TARTRATE 25 MG TAB PO SCH (21:02)
[2021-10-13] MEDS: ACYCLOVIR 200 MG CAP PO SCH (21:02)
[2021-10-14] MEDS: SODIUM CHLORIDE 0.9% IV SCH (02:57)
[2021-10-14] MEDS: CYTARABINE IV SCH (02:57)
[2021-10-14] MEDS: SODIUM CHLORIDE 0.9% 1,000 ML IV SCH ×2 (06:06→16:16)
[2021-10-14 07:49] LABS: ALT 40 U/L (4-34); AST 37 U/L (14-36); African American GFR (CKD) >90 (>60 ml/min/1.73 sqM); Albumin 3.4 g/dL (3.5-5.0); Albumin/Globulin Ratio 1.3; Alkaline Phosphatase 64 U/L (38-126); Anion Gap 4 mmol/L; Blood Urea Nitrogen 16 mg/dL (7-17); Calcium 9.1 mg/dL (8.4-10.2); Carbon Dioxide 27 mmol/L (22-30); Chloride 110 mmol/L (98-107); Globulin 2.7 g/dL; Glucose 127 mg/dL (74-99); LDH 496 U/L (313-618); Magnesium 1.9 mg/dL (1.6-2.3); Non-African American GFR(CKD) 82 (>60 ml/min/1.73 sqM); Potassium 4.3 mmol/L (3.5-5.1); Sodium 141 mmol/L (137-145); Total Bilirubin 0.4 mg/dL (0.2-1.3); Total Protein 6.1 g/dL (6.3-8.2); Uric Acid 5.4 mg/dL (3.7-7.4)
[2021-10-14 07:56] LABS: Anisocytosis Moderate; Basophils % (A) 0 %; Eosinophils % (A) 0 %; HCT 29.7 % (34.0-46.0); HGB 10.3 gm/dL (11.4-16.0); Lymphocytes # (A) 0.2 k/uL (1.0-4.8); Lymphocytes % (A) 2 %; MCH 33.1 pg (25.0-35.0); MCHC 34.8 g/dL (31.0-37.0); MCV 95.1 fL (80.0-100.0); Macrocytosis Slight; Mean Platelet Volume 8.3; Monocytes # (A) 0.4 k/uL (0-1.0); Monocytes % (A) 5 %; Neutrophils # (A) 7.1 k/uL (1.3-7.7); Neutrophils % (A) 93 %; Platelet Count 170 k/uL (150-450); Poikilocytosis Slight; RBC 3.12 m/uL (3.80-5.40); RDW 20.6 % (11.5-15.5); WBC 7.7 k/uL (3.8-10.6)
[2021-10-14 08:09] LABS: Partial Thromboplastin Time 20.8 sec (22.0-30.0)
[2021-10-14] MEDS: ACYCLOVIR 200 MG CAP PO SCH ×2 (08:09→20:58)
[2021-10-14] MEDS: PARoxetine 10 MG TAB PO SCH (08:09)
[2021-10-14] MEDS: METOPROLOL TARTRATE 25 MG TAB PO SCH ×2 (08:09→20:58)
[2021-10-14] MEDS: prednisoLONE ACETATE 1% OPHTH DROPS 5 ML BTL BOTH EYES SCH ×4 (08:10→20:59)
[2021-10-14] MEDS: SALT AND SODA MOUTHWASH 1,000 ML PO SCH ×3 (08:10→18:04)
[2021-10-14 08:12] LABS: Prothrombin Time 10.4 sec (9.0-12.0)
--- NOTE | 2021-10-14 23:18 | P.PN ---
Subjective Progress Note Date: 10/14/21 The patient is tolerating treatment well so far. She is on day #2. She has no specific complaints. No fever/chills/nausea/vomiting/mouth sores. Appetite is maintained. Objective - Vital Signs Vital signs: Vital Signs Temp 98.9 F 10/14/21 20:30 Pulse 72 10/14/21 20:30 Resp 20 10/14/21 20:30 BP 125/55 10/14/21 20:30 Pulse Ox 96 10/14/21 20:30 Intake & Output 10/14/21 10/14/21 10/15/21 06:59 18:59 06:59 Intake Total 1800 2000 Balance 1800 2000 Intake: Intake, IV Titration 1400 1200 Amount Cytarabine/Pf 5,500 mg In 500 Sodium Chloride 0.9% 500 ml 500 ml In Empty Bag 1 bag @ 258.333 mls/hr IV Q12H ANJEL Rx#:[id number] Sodium Chloride 0.9% 1, 900 1200 000 ml @ 100 mls/hr IV CONTINUOUS ANJEL Rx#: [id number] Oral 400 800 Other: Voiding Method Toilet Toilet # Voids 2 3 - Constitutional General appearance: Present: no acute distress - EENT Eyes: Present: EOMI ENT: Present: hearing grossly normal, normal oropharynx - Respiratory Respiratory: bilateral: CTA - Cardiovascular Rhythm: regular Heart sounds: normal: S1, S2 - Gastrointestinal General gastrointestinal: Present: normal bowel sounds, soft - Integumentary Integumentary: Present: normal - Neurologic Neurologic: Present: CNII-XII intact - Musculoskeletal Musculoskeletal: Present: generalized weakness, strength equal bilaterally - Psychiatric Psychiatric: Present: A&O x's 3, appropriate affect - Labs CBC & Chem 7: 10/14/21 06:42 10/14/21 06:42 Labs: Abnormal Lab Results - Last 24 Hours (Table) 10/14/21 10/14/21 10/14/21 Range/Units 06:42 06:42 06:42 RBC 3.12 L (3.80-5.40) m/uL Hgb 10.3 L (11.4-16.0) gm/dL Hct 29.7 L (34.0-46.0) % RDW 20.6 H (11.5-15.5) % Lymphocytes # 0.2 L (1.0-4.8) k/uL APTT 20.8 L (22.0-30.0) sec Chloride 110 H (98-107) mmol/L Glucose 127 H (74-99) mg/dL AST 37 H (14-36) U/L ALT 40 H (4-34) U/L Total Protein 6.1 L (6.3-8.2) g/dL Albumin 3.4 L (3.5-5.0) g/dL Assessment and Plan (1) AML (acute myeloid leukemia) Narrative/Plan: Currently in remission, on consolidation chemotherapy, cycle #2. The patient is on day #2 of high-dose cytarabine. So far she is tolerating treatment well. Continue treatment for protocol. Continue to monitor with physical exams, and labs, which have been ordered. Continue supportive medications including steroid eyedrops. Current Visit: No Status: Acute Priority: High Code(s): C92.00 - ACUTE MYELOBLASTIC LEUKEMIA, NOT HAVING ACHIEVED REMISSION SNOMED Code(s): 57784345 (2) Anemia Narrative/Plan: I, present on admission, due to effects of prior chemotherapy. Hemoglobin is stable in the 10 range. Continue to monitor. Transfuse to keep hemoglobin greater than 7 and platelets greater than 10. Discussed with the patient that which additional chemotherapy drops in blood counts can occur earlier than be more marked. Current Visit: No Status: Acute Priority: High Code(s): D64.9 - ANEMIA, UNSPECIFIED SNOMED Code(s): 906319159
[2021-10-15] MEDS: SODIUM CHLORIDE 0.9% 1,000 ML IV SCH ×3 (02:49→21:23)
[2021-10-15 07:56] LABS: Anisocytosis Slight; Basophils % (A) 0 %; Eosinophils % (A) 1 %; HCT 29.4 % (34.0-46.0); HGB 9.9 gm/dL (11.4-16.0); Lymphocytes # (A) 0.2 k/uL (1.0-4.8); Lymphocytes % (A) 4 %; MCH 32.5 pg (25.0-35.0); MCHC 33.7 g/dL (31.0-37.0); MCV 96.5 fL (80.0-100.0); Macrocytosis Slight; Mean Platelet Volume 8.1; Monocytes # (A) 0.2 k/uL (0-1.0); Monocytes % (A) 4 %; Neutrophils # (A) 3.3 k/uL (1.3-7.7); Neutrophils % (A) 90 %; Platelet Count 137 k/uL (150-450); RBC 3.05 m/uL (3.80-5.40); RDW 19.7 % (11.5-15.5); WBC 3.7 k/uL (3.8-10.6)
[2021-10-15 08:08] LABS: ALT 37 U/L (4-34); AST 36 U/L (14-36); African American GFR (CKD) 78 (>60 ml/min/1.73 sqM); Albumin 3.4 g/dL (3.5-5.0); Albumin/Globulin Ratio 1.3; Alkaline Phosphatase 61 U/L (38-126); Anion Gap 6 mmol/L; Blood Urea Nitrogen 17 mg/dL (7-17); Calcium 8.9 mg/dL (8.4-10.2); Carbon Dioxide 29 mmol/L (22-30); Chloride 108 mmol/L (98-107); Globulin 2.6 g/dL; Glucose 87 mg/dL (74-99); LDH 470 U/L (313-618); Magnesium 1.9 mg/dL (1.6-2.3); Non-African American GFR(CKD) 68 (>60 ml/min/1.73 sqM); Phosphorus 4.5 mg/dL (2.5-4.5); Potassium 3.7 mmol/L (3.5-5.1); Sodium 143 mmol/L (137-145); Total Bilirubin 0.5 mg/dL (0.2-1.3); Uric Acid 5.7 mg/dL (3.7-7.4)
[2021-10-15] MEDS: ACYCLOVIR 200 MG CAP PO SCH ×2 (09:01→21:21)
[2021-10-15] MEDS: PARoxetine 10 MG TAB PO SCH (09:02)
[2021-10-15] MEDS: prednisoLONE ACETATE 1% OPHTH DROPS 5 ML BTL BOTH EYES SCH ×4 (09:02→21:21)
[2021-10-15] MEDS: SALT AND SODA MOUTHWASH 1,000 ML PO SCH ×3 (09:02→18:27)
--- NOTE | 2021-10-15 10:38 | P.CONS ---
<Román Pena - Last Filed: 10/15/21 10:18> History of Present Illness - Reason for Consult Consult date: 10/15/21 Medical Managment Requesting physician: Pablito Forte - Chief Complaint Medical management - History of Present Illness Hospital course: Patient is a very pleasant 61-year-old female whom was recently diagnosed with AML on 06/21/21 and has a past medical history of hypertension. She is currently admitted under oncology team undergoing her second cycle of chemotherapy with HiDAC and is currently on day 3 of her treatments. We have been consulted for continued medical management of patient throughout her hospitalization. Patient seen and fully evaluated at the bedside this morning. She currently reports feeling "great" this morning, today will be day 3 of her antineoplastic/chemotherapy treatments. She reports development of a rash to the right side of her face which she states is the same rash she developed during her last round of chemotherapy treatments. Otherwise she denies having any other side effects from treatment, concerns, or complaints at this time including headache, lightheadedness, dizziness, fatigue, chest pain, palpitations, shortness of breath, abdominal pain, nausea, vomiting, or diarrhea. Morning labs reviewed revealing pancytopenia with WBC count 3.7, hemoglobin 9.9, and platelets of 137. Urinalysis was negative for blood or infection. BMP was unremarkable. Physical exam: Vital signs reviewed and stable. General: Nontoxic, no distress and appears stated age. Derm: Skin warm and dry, normal coloration for ethnicity. Head: Atraumatic, normocephalic and symmetric. Eyes: EOMs intact, no lid lag, and anicteric sclera Mouth: no lip lesions, mucus membranes moist Cardiovascular: regular rate and rhythm with normal S1S2, no murmur, positive posterior tibial pulses bilaterally, and cap refill < 2 seconds. Lungs: Respirations even, regular, and unlabored on room air. Lungs CTA bilaterally, no rhonchi, no rales, no wheezing, and no accessory muscle usage. Abdominal: soft, nontender to palpation, no guarding, no appreciable organomegaly Ext: ROM intact. No gross muscle atrophy, no edema, no contractures Neuro: Speech clear, face symmetrical and CN II-XII grossly intact with no noted focal neuro deficits Psych: Alert and oriented to person, place, time, and situation. Appropriate and pleasant affect. Assessment and Plan of Care: Acute myeloid leukemia -Patient is currently undergoing her second cycle with chemotherapeutic agent HiDAC, today is day 3 of treatments. -Management per primary admitting oncology team. -Symptomatic care. Pancytopenia secondary to adverse effects of chemotherapy treatment -Pancytopenia with WBC count of 3.7, hemoglobin 9.9, and platelet count of 137. -Pancytopenia secondary to the adverse effects the patient's chemotherapeutic treatment with HiDAC. -We will continue to monitor with repeat a.m. labs. Hypertension Monitor vital signs and continue daily medication regimen with metoprolol 25 mg twice daily Thank you for allowing us to participate in the care of this pleasant patient. Do not hesitate to contact us with questions. Someone can be reached from the [facility] hospitalist group all hours of the day at [phone] or via [email or web address]. Past Medical History Past Medical History: Atrial Fibrillation, Cancer, GERD/Reflux, Hearing Disorder / Deafness, Osteoarthritis (OA), Pneumonia, Syncope Additional Past Medical History / Comment(s): AML, chemotherapy, neutropenia, neutropenic fever, pancytopenia, pneumonia/vented, paroxysmal Afib, syncope/cause unknown, occasional R ear tinnitis, diverticular disease/benign polyp, UTI. History of Any Multi-Drug Resistant Organisms: None Reported Past Surgical History: Breast Surgery, Orthopedic Surgery Additional Past Surgical History / Comment(s): BMA, bronchoscopy, colonoscopy, breast biopsy, arthroscopy left and right knee Past Anesthesia/Blood Transfusion Reactions: No Reported Reaction Additional Past Anesthesia/Blood Transfusion Reaction / Comm: Pt has received blood without reaction. Past Psychological History: Anxiety Additional Psychological History / Comment(s): Pt resides with her spouse who is very helpful. She uses a walker occasionally. She has not driven since diagnosis/spouse drives. Smoking Status: Never smoker Past Alcohol Use History: None Reported Past Drug Use History: None Reported - Past Family History Father Family Medical History: Cancer Mother Family Medical History: Coronary Artery Disease (CAD), Dementia Additional Family Medical History / Comment(s): Mother had coronary stents. She is from dementia. Medications and Allergies Home Medications Medication Instructions Recorded Confirmed Type PARoxetine [Paxil] 10 mg PO DAILY 12/17/18 10/13/21 History Acyclovir 400 mg PO BID #42 tablet 08/21/21 10/13/21 Rx Metoprolol Tartrate [Lopressor] 25 mg PO BID 10/13/21 10/13/21 History Midostaurin [Rydapt] 25 mg PO DIRECTED 10/13/21 10/13/21 History Allergies Allergy/AdvReac Type Severity Reaction Status Date / Time vancomycin Allergy Rash/Hives Verified 10/13/21 09:41 Physical Exam Vitals: Vital Signs Temp Pulse Resp BP Pulse Ox 10/15/21 02:57 98.5 F 67 18 111/70 97 10/14/21 23:53 98.7 F 62 18 114/69 97 10/14/21 20:30 98.9 F 72 20 125/55 96 10/14/21 19:50 18 10/14/21 18:33 98.4 F 70 126/55 99 10/14/21 12:30 98.3 F 63 17 108/62 98 10/14/21 08:00 63 108/62 Intake and Output 10/14/21 10/15/21 10/15/21 22:59 06:59 14:59 Intake Total 1999 1099 Balance 1999 1099 Intake: Intake, IV Titration 1200 900 Amount Sodium Chloride 0.9% 1, 1200 900 000 ml @ 100 mls/hr IV CONTINUOUS ANJEL Rx#: [id number] Oral 800 200 Other: Voiding Method Toilet # Voids 3 1 Results CBC & Chem 7: 10/15/21 07:11 10/15/21 07:11 Labs: Abnormal Lab Results - Last 24 Hours (Table) 10/14/21 10/14/21 10/14/21 Range/Units 06:42 06:42 06:42 RBC 3.12 L (3.80-5.40) m/uL Hgb 10.3 L (11.4-16.0) gm/dL Hct 29.7 L (34.0-46.0) % RDW 20.6 H (11.5-15.5) % Lymphocytes # 0.2 L (1.0-4.8) k/uL APTT 20.8 L (22.0-30.0) sec Chloride 110 H (98-107) mmol/L Glucose 127 H (74-99) mg/dL AST 37 H (14-36) U/L ALT 40 H (4-34) U/L Total Protein 6.1 L (6.3-8.2) g/dL Albumin 3.4 L (3.5-5.0) g/dL <Ar Bailey - Last Filed: 10/15/21 18:02> History of Present Illness - History of Present Illness Patient seen and evaluated by me independently. Patient was also seen by ROBINA, the original author of this note. I am in agreement with the subjective, physical exam, and assessment and plan as documented with the addition/changes of my exam and assessment below. Gen: awake, alert HEENT: normocephalic, atraumatic, good hearing acuity, moist mucous membranes Resp: good air exchange, breathing comfortably with no accessory muscle use CVS: good distal perfusion x 4, GI: soft, NTTP, ND : no SPT, no CVAT, putnam catheter not present MSK: no pitting edema, no clubbing Neuro: non-focal, moving all extremities Psych: cooperative, euthymic mood Plan: Continue with cycle 2 of HiDAC, day 3 Monitor pancytopenia and transfuse as needed Patient is doing overall quite well Physical Exam Osteopathic Statement: *. No significant issues noted on an osteopathic structural exam other than those noted in the History and Physical/Consult. Vitals: Vital Signs Temp Pulse Resp BP Pulse Ox 10/15/21 15:18 98.4 F 64 113/70 98 10/15/21 12:36 98.1 F 69 16 116/67 96 10/15/21 11:37 98.6 F 65 113/64 100 10/15/21 08:08 98.4 F 57 L 16 109/74 96 10/15/21 02:57 98.5 F 67 18 111/70 97 10/14/21 23:53 98.7 F 62 18 114/69 97 10/14/21 20:30 98.9 F 72 20 125/55 96 10/14/21 19:50 18 10/14/21 18:33 98.4 F 70 126/55 99 Intake and Output 10/15/21 10/15/21 10/15/21 06:59 14:59 22:59 Intake Total 1100 Balance 1100 Intake: Intake, IV Titration 900 Amount Sodium Chloride 0.9% 1, 900 000 ml @ 100 mls/hr IV CONTINUOUS ANJEL Rx#: [id number] Oral 200 Other: Voiding Method Toilet # Voids 1 2 Results CBC & Chem 7: 10/15/21 07:11 10/15/21 07:11 Labs: Abnormal Lab Results - Last 24 Hours (Table) 10/15/21 10/15/21 Range/Units 07:11 07:11 WBC 3.7 L (3.8-10.6) k/uL RBC 3.05 L (3.80-5.40) m/uL Hgb 9.9 L (11.4-16.0) gm/dL Hct 29.4 L (34.0-46.0) % RDW 19.7 H (11.5-15.5) % Plt Count 137 L (150-450) k/uL Lymphocytes # 0.2 L (1.0-4.8) k/uL Chloride 108 H (98-107) mmol/L ALT 37 H (4-34) U/L Total Protein 6.0 L (6.3-8.2) g/dL Albumin 3.4 L (3.5-5.0) g/dL
[2021-10-15] MEDS: METOPROLOL TARTRATE 25 MG TAB PO SCH ×2 (11:35→21:21)
[2021-10-15] MEDS: FAMOTIDINE 20 MG/2 ML VIAL IV SCH (14:40)
[2021-10-15] MEDS: DEXAMETHASONE SOD PHOSPHATE 10 MG/ML 1 ML VIAL IV SCH (14:41)
[2021-10-15] MEDS: ONDANSETRON 16 MG in SODIUM CHLORIDE 0.9% 50 ML IVPB SCH (14:41)
[2021-10-15] MEDS: CYTARABINE IV SCH (15:20)
[2021-10-15] MEDS: SODIUM CHLORIDE 0.9% IV SCH (15:20)
--- NOTE | 2021-10-15 16:47 | P.PN ---
Subjective Progress Note Date: 10/15/21 The patient is continuing on treatment, without any specific complaints. No fevers/chills/nausea/vomiting. She has noticed a mild skin rash that she has had before with regimen. However this is asymptomatic. Objective - Vital Signs Vital signs: Vital Signs Temp 98.4 F 10/15/21 15:18 Pulse 64 10/15/21 15:18 Resp 16 10/15/21 12:36 BP 113/70 10/15/21 15:18 Pulse Ox 98 10/15/21 15:18 Intake & Output 10/14/21 10/15/21 10/15/21 18:59 06:59 18:59 Intake Total 1999 1099 Balance 1999 1099 Intake: Intake, IV Titration 1200 900 Amount Sodium Chloride 0.9% 1, 1200 900 000 ml @ 100 mls/hr IV CONTINUOUS ANJEL Rx#: [id number] Oral 800 200 Other: Voiding Method Toilet Toilet Toilet # Voids 3 1 - Constitutional General appearance: Present: no acute distress - EENT Eyes: Present: EOMI ENT: Present: hearing grossly normal, normal oropharynx - Respiratory Respiratory: bilateral: CTA - Cardiovascular Rhythm: regular Heart sounds: normal: S1, S2 - Gastrointestinal General gastrointestinal: Present: normal bowel sounds, soft - Integumentary Integumentary: Present: normal - Neurologic Neurologic: Present: CNII-XII intact - Musculoskeletal Musculoskeletal: Present: strength equal bilaterally - Psychiatric Psychiatric: Present: A&O x's 3, appropriate affect - Labs CBC & Chem 7: 10/15/21 07:11 10/15/21 07:11 Labs: Abnormal Lab Results - Last 24 Hours (Table) 10/15/21 10/15/21 Range/Units 07:11 07:11 WBC 3.7 L (3.8-10.6) k/uL RBC 3.05 L (3.80-5.40) m/uL Hgb 9.9 L (11.4-16.0) gm/dL Hct 29.4 L (34.0-46.0) % RDW 19.7 H (11.5-15.5) % Plt Count 137 L (150-450) k/uL Lymphocytes # 0.2 L (1.0-4.8) k/uL Chloride 108 H (98-107) mmol/L ALT 37 H (4-34) U/L Total Protein 6.0 L (6.3-8.2) g/dL Albumin 3.4 L (3.5-5.0) g/dL Assessment and Plan (1) AML (acute myeloid leukemia) Narrative/Plan: The patient is on day #3 of cycle 2 of consolidation with high-dose cytarabine. If he continues to tolerate treatment well with no specific complaints. Labs were ordered and were satisfactory. Continue treatment per protocol. Continue to monitor Current Visit: No Status: Acute Priority: High Code(s): C92.00 - ACUTE MYELOBLASTIC LEUKEMIA, NOT HAVING ACHIEVED REMISSION SNOMED Code(s): 38069743 (2) Anemia Narrative/Plan: Mild decline in hemoglobin to 9.9 versus 10.2. This is due to medication effect. Will continue to be quite adequate with no acute intervention needed. Continue to monitor and transfuse to keep hemoglobin greater than 7 Current Visit: No Status: Acute Priority: High Code(s): D64.9 - ANEMIA, UNSPECIFIED SNOMED Code(s): 625095710
[2021-10-16] MEDS: CYTARABINE IV SCH (02:56)
[2021-10-16] MEDS: SODIUM CHLORIDE 0.9% IV SCH (02:56)
[2021-10-16] MEDS: ACYCLOVIR 200 MG CAP PO SCH ×2 (09:17→20:53)
[2021-10-16] MEDS: METOPROLOL TARTRATE 25 MG TAB PO SCH ×2 (09:17→20:54)
[2021-10-16] MEDS: PARoxetine 10 MG TAB PO SCH (09:18)
[2021-10-16] MEDS: prednisoLONE ACETATE 1% OPHTH DROPS 5 ML BTL BOTH EYES SCH ×4 (09:18→20:53)
[2021-10-16] MEDS: SALT AND SODA MOUTHWASH 1,000 ML PO PRN (09:19)
[2021-10-16] MEDS: SODIUM CHLORIDE 0.9% 1,000 ML IV SCH ×2 (09:21→20:56)
[2021-10-16] MEDS: SALT AND SODA MOUTHWASH 1,000 ML PO SCH ×3 (09:22→16:50)
[2021-10-16 10:03] LABS: Anisocytosis Slight; Basophils % (A) 0 %; Eosinophils % (A) 0 %; HCT 27.6 % (34.0-46.0); HGB 9.3 gm/dL (11.4-16.0); Lymphocytes # (A) 0.1 k/uL (1.0-4.8); Lymphocytes % (A) 2 %; MCH 32.5 pg (25.0-35.0); MCHC 33.6 g/dL (31.0-37.0); MCV 96.8 fL (80.0-100.0); Macrocytosis Slight; Mean Platelet Volume 8.8; Monocytes # (A) 0.1 k/uL (0-1.0); Monocytes % (A) 3 %; Neutrophils # (A) 4.2 k/uL (1.3-7.7); Neutrophils % (A) 95 %; Platelet Count 132 k/uL (150-450); RBC 2.85 m/uL (3.80-5.40); RDW 19.1 % (11.5-15.5); WBC 4.4 k/uL (3.8-10.6)
[2021-10-16 10:24] LABS: ALT 34 U/L (4-34); AST 32 U/L (14-36); African American GFR (CKD) >90 (>60 ml/min/1.73 sqM); Albumin 3.1 g/dL (3.5-5.0); Albumin/Globulin Ratio 1.2; Alkaline Phosphatase 58 U/L (38-126); Anion Gap 5 mmol/L; Blood Urea Nitrogen 14 mg/dL (7-17); Calcium 8.6 mg/dL (8.4-10.2); Carbon Dioxide 27 mmol/L (22-30); Chloride 110 mmol/L (98-107); Globulin 2.6 g/dL; Glucose 110 mg/dL (74-99); LDH 485 U/L (313-618); Non-African American GFR(CKD) 87 (>60 ml/min/1.73 sqM); Sodium 142 mmol/L (137-145); Total Bilirubin 0.3 mg/dL (0.2-1.3); Total Protein 5.7 g/dL (6.3-8.2); Uric Acid 4.2 mg/dL (3.7-7.4)
--- NOTE | 2021-10-16 12:05 | P.PN ---
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 She is currently admitted under oncology team undergoing her second cycle of chemotherapy with HiDAC and is currently on day 3 of her treatments. We have been consulted for continued medical management of patient throughout her hospitalization. Physical exam: Patient seen and fully evaluated at the bedside this morning and appears to be doing quite well. She reports that she continues to feel great and denies having any complaints. She continues to have a very small erythemic rash to right lower side of her face which appears to be slightly improved from yeste rday. She denies having any headache, lightheadedness, dizziness, chest pain, palpitations, shortness of breath, nausea, vomiting, or diarrhea. She reports she continues to have a good appetite and states that she ate all of her breakfast this morning as it was great. Patient is on round 2 day 4 of chemotherapy with HiDAC. CBC stable with hemoglobin of 9.3, platelet count of 132, and improvement of WBCs to 4.4. CMP revealing hyperchloremia with chloride 110 otherwise unremarkable. Vital signs reviewed and stable. General: Nontoxic, no distress and appears stated age. Derm: Skin warm and dry, normal coloration for ethnicity. Small erythemic raised rash to right lower side of face. Head: Atraumatic, normocephalic and symmetric. Eyes: EOMs intact, no lid lag, and anicteric sclera Mouth: no lip lesions, mucus membranes moist Cardiovascular: regular rate and rhythm with normal S1S2, murmur, positive posterior tibial pulses bilaterally, and cap refill < 2 seconds. Lungs: Respirations even, regular, and unlabored on room air. Lungs CTA bilaterally, no rhonchi, no rales, no wheezing, and no accessory muscle usage. Abdominal: soft, nontender to palpation, no guarding, no appreciable organomegaly Ext: ROM intact. No gross muscle atrophy, no edema, no contractures Neuro: Speech clear, face symmetrical and CN II-XII grossly intact with no noted focal neuro deficits Psych: Alert and oriented to person, place, time, and situation. Appropriate and pleasant affect. Assessment and Plan of Care: Acute myeloid leukemia -Patient is currently undergoing her second cycle with chemotherapeutic agent HiDAC, today is day 4 of treatments. -Management per primary admitting oncology team. -Symptomatic care. Pancytopenia secondary to adverse effects of chemotherapy treatment -Pancytopenia with initial WBC count of 3.7, hemoglobin 9.9, and platelet count of 137. Stable, WBCs improving to 4.4 with Hgb 9.3 and platelet count of 132. -Pancytopenia secondary to the adverse effects the patient's chemotherapeutic treatment with HiDAC. -We will continue to monitor with repeat a.m. labs. Hypertension Monitor vital signs and continue daily medication regimen with metoprolol 25 mg twice daily Thank you for allowing us to participate in the care of this pleasant patient. Do not hesitate to contact us with questions. Someone can be reached from the [facility] hospitalist group all hours of the day at [phone] or via [email or web address]. Objective - Vital Signs Vital signs: Vital Signs Temp 98.0 F 10/16/21 08:00 Pulse 65 10/16/21 08:00 Resp 16 10/16/21 08:00 BP 114/66 10/16/21 08:00 Pulse Ox 96 10/16/21 08:00 Intake & Output 10/15/21 10/16/21 10/16/21 18:59 06:59 18:59 Intake Total 1999 Balance 1999 Intake: Intake, IV Titration 1400 Amount Cytarabine/Pf 5,500 mg In 500 Sodium Chloride 0.9% 500 ml 500 ml In Empty Bag 1 bag @ 258.333 mls/hr IV Q12H ANJEL Rx#:[id number] Sodium Chloride 0.9% 1, 900 000 ml @ 100 mls/hr IV CONTINUOUS ANJEL Rx#: [id number] Oral 600 Other: Voiding Method Toilet Toilet # Voids 2 3 - Labs CBC & Chem 7: 10/16/21 05:36 10/16/21 05:36 Labs: Abnormal Lab Results - Last 24 Hours (Table) 10/16/21 10/16/21 Range/Units 05:36 05:36 RBC 2.85 L (3.80-5.40) m/uL Hgb 9.3 L (11.4-16.0) gm/dL Hct 27.6 L (34.0-46.0) % RDW 19.1 H (11.5-15.5) % Plt Count 132 L (150-450) k/uL Lymphocytes # 0.1 L (1.0-4.8) k/uL Chloride 110 H (98-107) mmol/L Glucose 110 H (74-99) mg/dL Total Protein 5.7 L (6.3-8.2) g/dL Albumin 3.1 L (3.5-5.0) g/dL <Ar Bailey - Last Filed: 10/16/21 13:56> Subjective Patient seen and evaluated by me independently. Patient was also seen by ROBINA, the original author of this note. I am in agreement with the subjective, physical exam, and assessment and plan as documented with the addition/changes of my exam and assessment below. Gen: awake, alert HEENT: normocephalic, atraumatic, good hearing acuity, moist mucous membranes Resp: good air exchange, breathing comfortably with no accessory muscle use CVS: good distal perfusion x 4, GI: soft, NTTP, ND : no SPT, no CVAT, putnam catheter not present MSK: no pitting edema, no clubbing Neuro: non-focal, moving all extremities Psych: cooperative, euthymic mood Plan: Agree with plan with no changes Objective - Vital Signs Vital signs: Vital Signs Temp 98.2 F 10/16/21 12:00 Pulse 64 10/16/21 12:00 Resp 16 10/16/21 12:00 BP 116/68 10/16/21 12:00 Pulse Ox 99 10/16/21 12:00 Intake & Output 10/15/21 10/16/21 10/16/21 18:59 06:59 18:59 Intake Total 1999 Balance 1999 Intake: Intake, IV Titration 1400 Amount Cytarabine/Pf 5,500 mg In 500 Sodium Chloride 0.9% 500 ml 500 ml In Empty Bag 1 bag @ 258.333 mls/hr IV Q12H ANJEL Rx#:[id number] Sodium Chloride 0.9% 1, 900 000 ml @ 100 mls/hr IV CONTINUOUS ANJEL Rx#: [id number] Oral 600 Other: Voiding Method Toilet Toilet # Voids 2 3 - Labs CBC & Chem 7: 10/16/21 05:36 10/16/21 05:36 Labs: Abnormal Lab Results - Last 24 Hours (Table) 10/16/21 10/16/21 Range/Units 05:36 05:36 RBC 2.85 L (3.80-5.40) m/uL Hgb 9.3 L (11.4-16.0) gm/dL Hct 27.6 L (34.0-46.0) % RDW 19.1 H (11.5-15.5) % Plt Count 132 L (150-450) k/uL Lymphocytes # 0.1 L (1.0-4.8) k/uL Chloride 110 H (98-107) mmol/L Glucose 110 H (74-99) mg/dL Total Protein 5.7 L (6.3-8.2) g/dL Albumin 3.1 L (3.5-5.0) g/dL
--- NOTE | 2021-10-16 18:24 | P.PN ---
Subjective Progress Note Date: 10/16/21 Principal diagnosis: AML Objective - Vital Signs Vital signs: Vital Signs Temp 97.8 F 10/16/21 16:00 Pulse 72 10/16/21 16:00 Resp 16 10/16/21 16:00 BP 117/70 10/16/21 16:00 Pulse Ox 98 10/16/21 16:00 Intake & Output 10/15/21 10/16/21 10/16/21 18:59 06:59 18:59 Intake Total 1999 Balance 1999 Intake: Intake, IV Titration 1400 Amount Cytarabine/Pf 5,500 mg In 500 Sodium Chloride 0.9% 500 ml 500 ml In Empty Bag 1 bag @ 258.333 mls/hr IV Q12H ANJEL Rx#:[id number] Sodium Chloride 0.9% 1, 900 000 ml @ 100 mls/hr IV CONTINUOUS ANJEL Rx#: [id number] Oral 600 Other: Voiding Method Toilet Toilet # Voids 2 3 # Bowel Movements 1 - Exam Alert and Oriented NAD Lungs: CTA Heart: Tachy, Reg Abd: soft, ND Ext no edema - Labs CBC & Chem 7: 10/16/21 05:36 10/16/21 05:36 Labs: Abnormal Lab Results - Last 24 Hours (Table) 10/16/21 10/16/21 Range/Units 05:36 05:36 RBC 2.85 L (3.80-5.40) m/uL Hgb 9.3 L (11.4-16.0) gm/dL Hct 27.6 L (34.0-46.0) % RDW 19.1 H (11.5-15.5) % Plt Count 132 L (150-450) k/uL Lymphocytes # 0.1 L (1.0-4.8) k/uL Chloride 110 H (98-107) mmol/L Glucose 110 H (74-99) mg/dL Total Protein 5.7 L (6.3-8.2) g/dL Albumin 3.1 L (3.5-5.0) g/dL Assessment and Plan Plan: Assessment and Plan (1) AML (acute myeloid leukemia) Current Visit: Yes Status: Acute Priority: High Code(s): C92.00 - ACUTE MYELOBLASTIC LEUKEMIA, NOT HAVING ACHIEVED REMISSION SNOMED Code(s): 70429834 (2) Neutropenic fever Current Visit: Yes Status: Acute Priority: High Code(s): D70.9 - NEUTROPENIA, UNSPECIFIED; R50.81 - FEVER PRESENTING WITH CONDITIONS CLASSIFIED ELSEWHERE SNOMED Code(s): 089683684 (3) Pancytopenia due to antineoplastic chemotherapy Current Visit: Yes Status: Acute Priority: High Code(s): D61.810 - ANTINEOPLASTIC CHEMOTHERAPY INDUCED PANCYTOPENIA; T45.1X5A - ADVERSE EFFECT OF ANTINEOPLASTIC AND IMMUNOSUP DRUGS, INIT SNOMED Code(s): 187887790566800 (4) Sepsis Current Visit: No Status: Acute Priority: High Code(s): A41.9 - SEPSIS, UNSPECIFIED ORGANISM SNOMED Code(s): 21746212 Plan: Cycle #2, Day 4 HIDAC Consolidation Can Start back on Rydapt Physician Attest: I have completed the full history and physical and gree with above dictation, dictated as a scribe
[2021-10-17] MEDS: SODIUM CHLORIDE 0.9% 1,000 ML IV SCH ×2 (05:36→13:18)
[2021-10-17 05:58] LABS: Anisocytosis Slight; HCT 25.9 % (34.0-46.0); HGB 8.9 gm/dL (11.4-16.0); MCH 32.9 pg (25.0-35.0); MCHC 34.3 g/dL (31.0-37.0); MCV 95.9 fL (80.0-100.0); Macrocytosis Slight; Mean Platelet Volume 8.2; Platelet Count 110 k/uL (150-450); RDW 18.8 % (11.5-15.5); WBC 3.8 k/uL (3.8-10.6)
[2021-10-17] MEDS: PARoxetine 10 MG TAB PO SCH (08:11)
[2021-10-17] MEDS: METOPROLOL TARTRATE 25 MG TAB PO SCH ×2 (08:11→21:26)
[2021-10-17] MEDS: ACYCLOVIR 200 MG CAP PO SCH ×2 (08:11→21:26)
[2021-10-17] MEDS: prednisoLONE ACETATE 1% OPHTH DROPS 5 ML BTL BOTH EYES SCH ×4 (08:12→21:27)
[2021-10-17] MEDS: SALT AND SODA MOUTHWASH 1,000 ML PO PRN (08:12)
[2021-10-17] MEDS: SALT AND SODA MOUTHWASH 1,000 ML PO SCH ×3 (08:15→17:33)
[2021-10-17 09:56] LABS: African American GFR (CKD) 92.9 (60.0-200.0); Albumin 3.6 g/dL (3.8-4.9); Albumin/Globulin Ratio 1.89 (1.60-3.17); Anion Gap 9.6 mmol/L (4.00-12.00); BUN/Creat Ratio 17.5 Ratio (12.00-20.00); Calcium 8.9 mg/dL (8.7-10.3); Carbon Dioxide 28.4 mmol/L (21.6-31.8); Globulin 1.9 g/dL (1.6-3.3); Magnesium 1.9 mg/dL (1.5-2.4); Non-African American GFR(CKD) 80.1 (60.0-200.0); Phosphorus 3.9 mg/dL (2.4-5.1); Total Bilirubin 0.4 mg/dL (0.30-1.20); Total Protein 5.5 g/dL (6.2-8.2)
[2021-10-17] MEDS: FAMOTIDINE 20 MG/2 ML VIAL IV SCH (13:21)
[2021-10-17] MEDS: ONDANSETRON 16 MG in SODIUM CHLORIDE 0.9% 50 ML IVPB SCH (13:25)
[2021-10-17] MEDS: DEXAMETHASONE SOD PHOSPHATE 10 MG/ML 1 ML VIAL IV SCH (13:26)
[2021-10-17] MEDS: CYTARABINE IV SCH (14:37)
[2021-10-17] MEDS: SODIUM CHLORIDE 0.9% IV SCH (14:37)
--- NOTE | 2021-10-17 14:44 | P.PN ---
Subjective Progress Note Date: 10/17/21 No new complaints. CBC is mildly worse, but stable. Objective - Vital Signs Vital signs: Vital Signs Temp 98.0 F 10/17/21 12:00 Pulse 70 10/17/21 12:00 Resp 16 10/17/21 12:00 BP 119/73 10/17/21 12:00 Pulse Ox 99 10/17/21 12:00 Intake & Output 10/16/21 10/17/21 10/17/21 18:59 06:59 18:59 Other: Voiding Method Toilet # Bowel Movements 1 - Exam Gen: awake, alert HEENT: normocephalic, atraumatic, good hearing acuity, moist mucous membranes Resp: good air exchange, breathing comfortably with no accessory muscle use CVS: good distal perfusion x 4, GI: soft, NTTP, ND : no SPT, no CVAT, putnam catheter not present MSK: no pitting edema, no clubbing Neuro: non-focal, moving all extremities Psych: cooperative, euthymic mood - Labs CBC & Chem 7: 10/17/21 04:55 10/17/21 04:55 Labs: Abnormal Lab Results - Last 24 Hours (Table) 10/17/21 10/17/21 Range/Units 04:55 04:55 RBC 2.70 L (3.80-5.40) m/uL Hgb 8.9 L (11.4-16.0) gm/dL Hct 25.9 L (34.0-46.0) % RDW 18.8 H (11.5-15.5) % Plt Count 110 L (150-450) k/uL Sodium 148 H (135-145) mmol/L Chloride 110 H (96-109) mmol/L ALT 45 H (8-44) U/L Total Protein 5.5 L (6.2-8.2) g/dL Albumin 3.6 L (3.8-4.9) g/dL Assessment and Plan Assessment: Acute myeloid leukemia -Patient is currently undergoing her second cycle with chemotherapeutic agent HiDAC, today is day 5 of treatments. -Management per primary admitting oncology team. -Symptomatic care. Pancytopenia secondary to adverse effects of chemotherapy treatment -Pancytopenia secondary to the adverse effects the patient's chemotherapeutic treatment with HiDAC. -We will continue to monitor with repeat a.m. labs. Hypertension Monitor vital signs and continue daily medication regimen with metoprolol 25 mg twice daily Thank you for allowing us to participate in the care of this pleasant patient. Do not hesitate to contact us with questions. Someone can be reached from the [facility] hospitalist group all hours of the day at [phone] or via [employer].
--- NOTE | 2021-10-17 20:02 | P.PN ---
Subjective Progress Note Date: 10/17/21 Principal diagnosis: AML Domi is doing well without any concerning subjective complaints or objective observations. Vitals are stable, Blood counts are stable and remain safe. Objective - Vital Signs Vital signs: Vital Signs Temp 98.2 F 10/17/21 19:44 Pulse 76 10/17/21 19:44 Resp 16 10/17/21 19:44 BP 116/58 10/17/21 19:44 Pulse Ox 93 L 10/17/21 19:44 Intake & Output 10/17/21 10/17/21 10/18/21 06:59 18:59 06:59 Intake Total 1974 Balance 1974 Intake: Intake, IV Titration 1974 Amount Cytarabine/Pf 5,500 mg In 775 Sodium Chloride 0.9% 500 ml 500 ml In Empty Bag 1 bag @ 258.333 mls/hr IV Q12H ANJEL Rx#:[id number] Sodium Chloride 0.9% 1, 1200 000 ml @ 100 mls/hr IV CONTINUOUS ANJEL Rx#: [id number] Other: Voiding Method Toilet # Voids 4 - Exam Alert and Oriented NAD Lungs: CTA Heart: Tachy, Reg Abd: soft, ND Ext no edema - Labs CBC & Chem 7: 10/17/21 04:55 10/17/21 04:55 Labs: Abnormal Lab Results - Last 24 Hours (Table) 10/17/21 10/17/21 Range/Units 04:55 04:55 RBC 2.70 L (3.80-5.40) m/uL Hgb 8.9 L (11.4-16.0) gm/dL Hct 25.9 L (34.0-46.0) % RDW 18.8 H (11.5-15.5) % Plt Count 110 L (150-450) k/uL Sodium 148 H (135-145) mmol/L Chloride 110 H (96-109) mmol/L ALT 45 H (8-44) U/L Total Protein 5.5 L (6.2-8.2) g/dL Albumin 3.6 L (3.8-4.9) g/dL Assessment and Plan Plan: Assessment and Plan (1) AML (acute myeloid leukemia) Current Visit: Yes Status: Acute Priority: High Code(s): C92.00 - ACUTE MYELOBLASTIC LEUKEMIA, NOT HAVING ACHIEVED REMISSION SNOMED Code(s): 74374715 (2) Neutropenic fever Current Visit: Yes Status: Acute Priority: High Code(s): D70.9 - NEUTROPENIA, UNSPECIFIED; R50.81 - FEVER PRESENTING WITH CONDITIONS CLASSIFIED ELSEWHERE SNOMED Code(s): 452645321 (3) Pancytopenia due to antineoplastic chemotherapy Current Visit: Yes Status: Acute Priority: High Code(s): D61.810 - ANTINEOPLASTIC CHEMOTHERAPY INDUCED PANCYTOPENIA; T45.1X5A - ADVERSE EFFECT OF ANTINEOPLASTIC AND IMMUNOSUP DRUGS, INIT SNOMED Code(s): 406699614068258 (4) Sepsis Current Visit: No Status: Acute Priority: High Code(s): A41.9 - SEPSIS, UNSPECIFIED ORGANISM SNOMED Code(s): 24193257 Plan: Cycle #2, Day 5 HIDAC Consolidation Can Start back on Rydapt Day 8 Plan for growth factor, with holiday weekend awaiting on aassistance from [facility] to assist in administering Physician Attest: I have completed the full history and physical and gree with above dictation, dictated as a scribe
[2021-10-18] MEDS: CYTARABINE IV SCH (02:30)
[2021-10-18] MEDS: SODIUM CHLORIDE 0.9% IV SCH (02:30)
[2021-10-18 04:33] VITALS: PULSE 64; RESP 16
[2021-10-18] MEDS: SODIUM CHLORIDE 0.9% 1,000 ML IV SCH ×2 (05:45→09:08)
[2021-10-18 06:27] LABS: Anisocytosis Slight; Basophils % (A) 0 %; Eosinophils % (A) 0 %; HCT 25.3 % (34.0-46.0); HGB 8.8 gm/dL (11.4-16.0); Lymphocytes # (A) 0.1 k/uL (1.0-4.8); Lymphocytes % (A) 1 %; MCH 33.1 pg (25.0-35.0); MCHC 34.7 g/dL (31.0-37.0); MCV 95.4 fL (80.0-100.0); Macrocytosis Slight; Mean Platelet Volume 8.1; Monocytes % (A) 1 %; Neutrophils # (A) 4.5 k/uL (1.3-7.7); Neutrophils % (A) 98 %; Platelet Count 107 k/uL (150-450); RBC 2.65 m/uL (3.80-5.40); RDW 18.2 % (11.5-15.5); WBC 4.6 k/uL (3.8-10.6)
[2021-10-18 06:41] LABS: African American GFR (CKD) >90 (>60 ml/min/1.73 sqM); Anion Gap 3 mmol/L; Blood Urea Nitrogen 16 mg/dL (7-17); Calcium 8.8 mg/dL (8.4-10.2); Carbon Dioxide 29 mmol/L (22-30); Chloride 109 mmol/L (98-107); Glucose 132 mg/dL (74-99); Magnesium 1.8 mg/dL (1.6-2.3); Non-African American GFR(CKD) 82 (>60 ml/min/1.73 sqM); Phosphorus 3.7 mg/dL (2.5-4.5); Potassium 3.8 mmol/L (3.5-5.1); Sodium 141 mmol/L (137-145)
[2021-10-18] MEDS: ACYCLOVIR 200 MG CAP PO SCH (07:31)
[2021-10-18] MEDS: prednisoLONE ACETATE 1% OPHTH DROPS 5 ML BTL BOTH EYES SCH (07:31)
[2021-10-18] MEDS: SALT AND SODA MOUTHWASH 1,000 ML PO SCH (07:31)
[2021-10-18] MEDS: METOPROLOL TARTRATE 25 MG TAB PO SCH (07:31)
[2021-10-18] MEDS: PARoxetine 10 MG TAB PO SCH (07:31)
[2021-10-18 08:05] VITALS: BP 132/78; TEMP 98
[2021-10-18] MEDS ORDERED: PEGFILGRASTIM 6 MG/0.6 ML SYRINGE (ONPRO) SQ ONE (09:00)
--- NOTE | 2021-10-18 12:29 | P.DS ---
Providers Date of admission: 10/13/21 08:57 Expected date of discharge: 10/18/21 Attending physician: Enedelia Kelley Consults: 10/13/21 16:05 Consult Physician Routine Consulting Provider: Ar Bailey Consult Reason/Comments: medical management Do you want consulting provider notified?: Yes Primary care physician: [facility] Course: Cycle 2 of HIDAC Assessment: Alert and oriented NAD Lungs: CTA Heart: RRR Abd: Soft Ext: no edema. Patient Condition at Discharge: Fair Plan - Discharge Summary Discharge Rx Participant: No New Discharge Prescriptions: New Levofloxacin [Levaquin] 500 mg PO DAILY 1 Days #30 tab prednisoLONE ACETATE 1% OPHTH [Pred Forte 1%] 1 drops BOTH EYES QID ml Continue PARoxetine [Paxil] 10 mg PO DAILY Metoprolol Tartrate [Lopressor] 25 mg PO BID Midostaurin [Rydapt] 25 mg PO DIRECTED Acyclovir 400 mg PO BID #60 tablet Discharge Medication List PARoxetine [Paxil] 10 mg PO DAILY 12/17/18 [History] Metoprolol Tartrate [Lopressor] 25 mg PO BID 10/13/21 [History] Midostaurin [Rydapt] 25 mg PO DIRECTED 10/13/21 [History] Acyclovir 400 mg PO BID #60 tablet 10/18/21 [Rx] Levofloxacin [Levaquin] 500 mg PO DAILY 1 Days #30 tab 10/18/21 [Rx] prednisoLONE ACETATE 1% OPHTH [Pred Forte 1%] 1 drops BOTH EYES QID ml 10/18/21 [Rx] Follow up Appointment(s)/Referral(s): Enedelia Kelley MD [STAFF PHYSICIAN] - 1 Week Discharge Disposition: HOME SELF-CARE Plan of Treatment: CBC check with Nurses on 10/23/21 @1:30
--- NOTE | 2021-10-18 13:23 | P.PN ---
Subjective Progress Note Date: 10/18/21 No new complaints. CBC is stable. Objective - Vital Signs Vital signs: Vital Signs Temp 98.0 F 10/18/21 08:00 Pulse 64 10/18/21 08:00 Resp 16 10/18/21 08:00 BP 132/78 10/18/21 08:00 Pulse Ox 99 10/18/21 08:00 Intake & Output 10/17/21 10/18/21 10/18/21 18:59 06:59 18:59 Intake Total 1974 Balance 1974 Intake: Intake, IV Titration 1974 Amount Cytarabine/Pf 5,500 mg In 775 Sodium Chloride 0.9% 500 ml 500 ml In Empty Bag 1 bag @ 258.333 mls/hr IV Q12H ANJEL Rx#:[id number] Sodium Chloride 0.9% 1, 1200 000 ml @ 100 mls/hr IV CONTINUOUS ANJEL Rx#: [id number] Other: Voiding Method Toilet # Voids 4 - Exam Gen: awake, alert HEENT: normocephalic, atraumatic, good hearing acuity, moist mucous membranes Resp: good air exchange, breathing comfortably with no accessory muscle use CVS: good distal perfusion x 4, GI: soft, NTTP, ND : no SPT, no CVAT, putnam catheter not present MSK: no pitting edema, no clubbing Neuro: non-focal, moving all extremities Psych: cooperative, euthymic mood - Labs CBC & Chem 7: 10/18/21 05:44 10/18/21 05:44 Labs: Abnormal Lab Results - Last 24 Hours (Table) 10/18/21 10/18/21 Range/Units 05:44 05:44 RBC 2.65 L (3.80-5.40) m/uL Hgb 8.8 L (11.4-16.0) gm/dL Hct 25.3 L (34.0-46.0) % RDW 18.2 H (11.5-15.5) % Plt Count 107 L (150-450) k/uL Lymphocytes # 0.1 L (1.0-4.8) k/uL Chloride 109 H (98-107) mmol/L Glucose 132 H (74-99) mg/dL Assessment and Plan Assessment: Acute myeloid leukemia -Patient is currently undergoing her second cycle with chemotherapeutic agent HiDAC, today is day 5 of treatments. -Management per primary admitting oncology team. -Symptomatic care. Pancytopenia secondary to adverse effects of chemotherapy treatment -Pancytopenia secondary to the adverse effects the patient's chemotherapeutic treatment with HiDAC. -We will continue to monitor with repeat a.m. labs. Hypertension Monitor vital signs and continue daily medication regimen with metoprolol 25 mg twice daily Thank you for allowing us to participate in the care of this pleasant patient. Do not hesitate to contact us with questions. Someone can be reached from the [facility] hospitalist group all hours of the day at [phone] or via [employer]. Patient is medically cleared for discharge.
[2021-10-21] MEDS ORDERED: MIDOSTAURIN 25 MG PO SCH (09:00)
== END 2021-10-18 13:21 | disposition home or self-care (01) | DRG 837 ==
LOC: 5NMEDONC 08:57
PROVIDERS: ADMIT Internal Medicine Hematology & Oncology; ATTEND Internal Medicine Hematology & Oncology
PROC: 02HV33Z Insertion of Infusion Device into Superior Vena Cava, Percutaneous Approach (ICD-10-PCS; 2021-10-13)
PROC: XW043B3 Introduction of Cytarabine and Daunorubicin Liposome Antineoplastic into Central Vein, Percutaneous Approach, New Technology Group 3 (ICD-10-PCS; principal; 2021-10-13 12:00)
DX: Z51.11 Encounter for antineoplastic chemotherapy (principal); A41.9 Sepsis, unspecified organism; C92.00 Acute myeloblastic leukemia, not having achieved remission; D61.810 Antineoplastic chemotherapy induced pancytopenia; D70.9 Neutropenia, unspecified; R50.81 Fever presenting with conditions classified elsewhere; F41.9 Anxiety disorder, unspecified; I10 Essential (primary) hypertension; H91.90 Unspecified hearing loss, unspecified ear; I48.0 Paroxysmal atrial fibrillation; T45.1X5A Adverse effect of antineoplastic and immunosuppressive drugs, initial encounter; Z20.822 Contact with and (suspected) exposure to COVID-19; Z79.899 Other long term (current) drug therapy; Z82.49 Family history of ischemic heart disease and other diseases of the circulatory system; Z87.440 Personal history of urinary (tract) infections; Z87.01 Personal history of pneumonia (recurrent); Z88.1 Allergy status to other antibiotic agents; Z86.010 Personal history of colon polyps; Z79.01 Long term (current) use of anticoagulants; K21.9 Gastro-esophageal reflux disease without esophagitis
CPT/HCPCS: 36573; 80048; 80053; 81001; 83615; 83735; 84100; 84550; 85025; 85027; 85610; 85730

== ENCOUNTER 2021-10-26 20:24 | Inpatient (IN) | payer BC ==
[2021-10-26] MEDS ORDERED: PIPERACILLIN-TAZOBACTAM 3.375 GM in SODIUM CHLORIDE 0.9% 100 ML IVPB STA (21:03)
[2021-10-26] MEDS ORDERED: ACETAMINOPHEN TAB 325 MG TAB PO STA (21:03)
[2021-10-26] MEDS ORDERED: CEFEPIME 2 GM in SODIUM CHLORIDE 0.9% 100 ML IVPB STA (21:08)
--- NOTE | 2021-10-26 21:24 | ED ---
Fever HPI - General Chief Complaint: Fever Stated Complaint: Low WBC Time Seen by Provider: 10/26/21 21:04 Source: patient, family Mode of arrival: wheelchair Limitations: no limitations - History of Present Illness MD Complaint: fever Onset/Timin -: days(s) Temperature Source: oral Associated Symptoms: denies other symptoms Treatments Prior to Arrival: none - Related Data Home Medications Medication Instructions Recorded Confirmed PARoxetine [Paxil] 10 mg PO DAILY 12/17/18 10/26/21 Metoprolol Tartrate [Lopressor] 25 mg PO BID 10/13/21 10/26/21 Midostaurin [Rydapt] 25 mg PO DIRECTED 10/13/21 10/26/21 Previous Rx's Medication Instructions Recorded Acyclovir 400 mg PO BID #60 tablet 10/18/21 Levofloxacin [Levaquin] 500 mg PO DAILY 1 Days #30 tab 10/18/21 prednisoLONE ACETATE 1% OPHTH 1 drops BOTH EYES QID ml 10/18/21 [Pred Forte 1%] Allergies Allergy/AdvReac Type Severity Reaction Status Date / Time vancomycin Allergy Rash/Hives Verified 10/26/21 22:20 Review of Systems ROS Statement: Those systems with pertinent positive or pertinent negative responses have been documented in the HPI. ROS Other: All systems not noted in ROS Statement are negative. Constitutional: Reports: fever ENT: Denies: ear pain, throat pain, congestion Respiratory: Denies: cough, dyspnea Cardiovascular: Denies: chest pain, palpitations Gastrointestinal: Denies: abdominal pain, nausea, vomiting, diarrhea Genitourinary: Denies: dysuria, hematuria Skin: Denies: rash Neurological: Denies: headache Past Medical History Past Medical History: Atrial Fibrillation, Cancer, GERD/Reflux, Hearing Disorder / Deafness, Osteoarthritis (OA), Pneumonia, Syncope Additional Past Medical History / Comment(s): AML, chemotherapy, neutropenia, neutropenic fever, pancytopenia, pneumonia/vented, paroxysmal Afib, syncope/cause unknown, occasional R ear tinnitis, diverticular disease/benign polyp, UTI. History of Any Multi-Drug Resistant Organisms: None Reported Past Surgical History: Breast Surgery, Orthopedic Surgery Additional Past Surgical History / Comment(s): BMA, bronchoscopy, colonoscopy, breast biopsy, arthroscopy left and right knee Past Anesthesia/Blood Transfusion Reactions: No Reported Reaction Additional Past Anesthesia/Blood Transfusion Reaction / Comment(s): Pt has received blood without reaction. Past Psychological History: Anxiety Smoking Status: Never smoker Past Alcohol Use History: None Reported Past Drug Use History: None Reported - Past Family History Father Family Medical History: Cancer Mother Family Medical History: Coronary Artery Disease (CAD), Dementia Additional Family Medical History / Comment(s): Mother had coronary stents. She is from dementia. General Exam Limitations: no limitations General appearance: alert Eye exam: Present: normal appearance ENT exam: Present: normal oropharynx, mucous membranes moist Neck exam: Present: normal inspection, full ROM. Absent: meningismus Respiratory exam: Present: normal lung sounds bilaterally. Absent: respiratory distress, wheezes, rales, rhonchi, stridor Cardiovascular Exam: Present: normal rhythm, tachycardia, normal heart sounds. Absent: systolic murmur, diastolic murmur, rubs, gallop GI/Abdominal exam: Present: soft. Absent: distended, tenderness, guarding, rebound, rigid, mass Extremities exam: Present: normal inspection, normal capillary refill. Absent: pedal edema, calf tenderness Back exam: Present: normal inspection. Absent: CVA tenderness (R), CVA tenderness (L) Neurological exam: Present: alert Skin exam: Present: warm, dry, intact, normal color. Absent: rash Course Vital Signs 10/26/21 10/26/21 10/27/21 20:33 22:57 00:30 Temperature 100.2 F H 99.6 F 99.4 F Pulse Rate 128 H 85 81 Respiratory 26 H 18 20 Rate Blood Pressure 148/72 125/57 116/67 O2 Sat by Pulse 100 97 100 Oximetry 10/27/21 10/27/21 01:11 01:21 Temperature 99.1 F 99.2 F Pulse Rate 84 89 Respiratory 16 16 Rate Blood Pressure 125/65 123/50 O2 Sat by Pulse 97 Oximetry Medical Decision Making - Lab Data Result diagrams: 10/26/21 22:00 10/26/21 22:00 Lab Results 10/26/21 10/26/21 10/26/21 Range/Units 21:25 22:00 22:00 WBC 0.1 L* (3.8-10.6) k/uL RBC 2.02 L (3.80-5.40) m/uL Hgb 6.4 L* D (11.4-16.0) gm/dL Hct 17.2 L* (34.0-46.0) % MCV 84.8 D (80.0-100.0) fL MCH 31.8 (25.0-35.0) pg MCHC 37.5 H (31.0-37.0) g/dL RDW 15.1 (11.5-15.5) % Plt Count 1 L* D (150-450) k/uL MPV 8.9 Neutrophils % 10 % Lymphocytes % 85 % Monocytes % 0 % Eosinophils % 2 % Basophils % 1 % Neutrophils # 0.0 L* (1.3-7.7) k/uL Lymphocytes # 0.1 L (1.0-4.8) k/uL Monocytes # 0.0 (0-1.0) k/uL Eosinophils # 0.0 (0-0.7) k/uL Basophils # 0.0 (0-0.2) k/uL Differential Comment [employer] Hyperchromasia Moderate Poikilocytosis Slight PT 9.8 (9.0-12.0) sec INR 0.9 (<1.2) APTT 22.0 (22.0-30.0) sec Sodium (137-145) mmol/L Potassium (3.5-5.1) mmol/L Chloride (98-107) mmol/L Carbon Dioxide (22-30) mmol/L Anion Gap mmol/L BUN (7-17) mg/dL Creatinine (0.52-1.04) mg/dL Est GFR (CKD-EPI)AfAm (>60 ml/min/1.73 sqM) Est GFR (CKD-EPI)NonAf (>60 ml/min/1.73 sqM) Glucose (74-99) mg/dL Plasma Lactic Acid Joel 1.1 (0.7-2.0) mmol/L Calcium (8.4-10.2) mg/dL Total Bilirubin (0.2-1.3) mg/dL AST (14-36) U/L ALT (4-34) U/L Alkaline Phosphatase (38-126) U/L Troponin I (0.000-0.034) ng/mL Total Protein (6.3-8.2) g/dL Albumin (3.5-5.0) g/dL Urine Color Urine Appearance (Clear) Urine pH (5.0-8.0) Ur Specific [place] (1.001-1.035) Urine Protein (Negative) Urine Glucose (UA) (Negative) Urine Ketones (Negative) Urine Blood (Negative) Urine Nitrite (Negative) Urine Bilirubin (Negative) Urine Urobilinogen (<2.0) mg/dL Ur Leukocyte Esterase (Negative) Urine RBC (0-5) /hpf Urine WBC (0-5) /hpf Ur Squamous Epith Cells (0-4) /hpf Urine Bacteria (None) /hpf Hyaline Casts (0-2) /lpf Urine Mucus (None) /hpf Coronavirus (PCR) (Not Detectd) Blood Type Blood Type Recheck Bld Type Recheck Status Antibody Screen Crossmatch Spec Expiration Date 10/26/21 10/26/21 10/26/21 Range/Units 22:00 22:00 22:00 WBC (3.8-10.6) k/uL RBC (3.80-5.40) m/uL Hgb (11.4-16.0) gm/dL Hct (34.0-46.0) % MCV (80.0-100.0) fL MCH (25.0-35.0) pg MCHC (31.0-37.0) g/dL RDW (11.5-15.5) % Plt Count (150-450) k/uL MPV Neutrophils % % Lymphocytes % % Monocytes % % Eosinophils % % Basophils % % Neutrophils # (1.3-7.7) k/uL Lymphocytes # (1.0-4.8) k/uL Monocytes # (0-1.0) k/uL Eosinophils # (0-0.7) k/uL Basophils # (0-0.2) k/uL Differential Comment Hyperchromasia Poikilocytosis PT (9.0-12.0) sec INR (<1.2) APTT (22.0-30.0) sec Sodium 139 (137-145) mmol/L Potassium 3.6 (3.5-5.1) mmol/L Chloride 106 (98-107) mmol/L Carbon Dioxide 25 (22-30) mmol/L Anion Gap 8 mmol/L BUN 21 H (7-17) mg/dL Creatinine 1.10 H (0.52-1.04) mg/dL Est GFR (CKD-EPI)AfAm 63 (>60 ml/min/1.73 sqM) Est GFR (CKD-EPI)NonAf 55 (>60 ml/min/1.73 sqM) Glucose 161 H (74-99) mg/dL Plasma Lactic Acid Joel (0.7-2.0) mmol/L Calcium 9.2 (8.4-10.2) mg/dL Total Bilirubin 0.4 (0.2-1.3) mg/dL AST 24 (14-36) U/L ALT 24 (4-34) U/L Alkaline Phosphatase 89 (38-126) U/L Troponin I <0.012 (0.000-0.034) ng/mL Total Protein 6.2 L (6.3-8.2) g/dL Albumin 3.6 (3.5-5.0) g/dL Urine Color Yellow Urine Appearance Clear (Clear) Urine pH 5.5 (5.0-8.0) Ur Specific [place] 1.022 (1.001-1.035) Urine Protein Trace H (Negative) Urine Glucose (UA) Negative (Negative) Urine Ketones Negative (Negative) Urine Blood Trace H (Negative) Urine Nitrite Negative (Negative) Urine Bilirubin Negative (Negative) Urine Urobilinogen <2.0 (<2.0) mg/dL Ur Leukocyte Esterase Negative (Negative) Urine RBC 1 (0-5) /hpf Urine WBC 1 (0-5) /hpf Ur Squamous Epith Cells <1 (0-4) /hpf Urine Bacteria Rare H (None) /hpf Hyaline Casts 3 H (0-2) /lpf Urine Mucus Rare H (None) /hpf Coronavirus (PCR) (Not Detectd) Blood Type Blood Type Recheck Bld Type Recheck Status Antibody Screen Crossmatch Spec Expiration Date 10/26/21 10/26/21 Range/Units 22:00 23:12 WBC (3.8-10.6) k/uL RBC (3.80-5.40) m/uL Hgb (11.4-16.0) gm/dL Hct (34.0-46.0) % MCV (80.0-100.0) fL MCH (25.0-35.0) pg MCHC (31.0-37.0) g/dL RDW (11.5-15.5) % Plt Count (150-450) k/uL MPV Neutrophils % % Lymphocytes % % Monocytes % % Eosinophils % % Basophils % % Neutrophils # (1.3-7.7) k/uL Lymphocytes # (1.0-4.8) k/uL Monocytes # (0-1.0) k/uL Eosinophils # (0-0.7) k/uL Basophils # (0-0.2) k/uL Differential Comment Hyperchromasia Poikilocytosis PT (9.0-12.0) sec INR (<1.2) APTT (22.0-30.0) sec Sodium (137-145) mmol/L Potassium (3.5-5.1) mmol/L Chloride (98-107) mmol/L Carbon Dioxide (22-30) mmol/L Anion Gap mmol/L BUN (7-17) mg/dL Creatinine (0.52-1.04) mg/dL Est GFR (CKD-EPI)AfAm (>60 ml/min/1.73 sqM) Est GFR (CKD-EPI)NonAf (>60 ml/min/1.73 sqM) Glucose (74-99) mg/dL Plasma Lactic Acid Joel (0.7-2.0) mmol/L Calcium (8.4-10.2) mg/dL Total Bilirubin (0.2-1.3) mg/dL AST (14-36) U/L ALT (4-34) U/L Alkaline Phosphatase (38-126) U/L Troponin I (0.000-0.034) ng/mL Total Protein (6.3-8.2) g/dL Albumin (3.5-5.0) g/dL Urine Color Urine Appearance (Clear) Urine pH (5.0-8.0) Ur Specific [place] (1.001-1.035) Urine Protein (Negative) Urine Glucose (UA) (Negative) Urine Ketones (Negative) Urine Blood (Negative) Urine Nitrite (Negative) Urine Bilirubin (Negative) Urine Urobilinogen (<2.0) mg/dL Ur Leukocyte Esterase (Negative) Urine RBC (0-5) /hpf Urine WBC (0-5) /hpf Ur Squamous Epith Cells (0-4) /hpf Urine Bacteria (None) /hpf Hyaline Casts (0-2) /lpf Urine Mucus (None) /hpf Coronavirus (PCR) Not Detected (Not Detectd) Blood Type AB Positive Blood Type Recheck AB Pos Bld Type Recheck Status No Antibody Screen NEGATIVE Crossmatch See Detail Spec Expiration Date 10/29/20212311 Disposition Clinical Impression: Anemia, Thrombocytopenia, Neutropenic fever Disposition: ADMITTED IP TO THIS [facility] Condition: Serious Referrals: Kelly Ahuja MD [Primary Care Provider] - 1-2 days
--- NOTE | 2021-10-26 22:25 | XR ---
EXAMINATION: XR chest 1V portable DATE AND TIME: 10/26/2021 9:21 PM CLINICAL INDICATION: PHH; Fever TECHNIQUE: AP upright portable COMPARISON: 09/02/2021 FINDINGS: Left upper extremity PICC line tip superimposed over the mid SVC. The lungs are clear. The pleural spaces are negative. The cardiac silhouette is not enlarged. The remainder of the mediastinal silhouette is unremarkable. The skeletal structures and soft tissues are negative for acute findings. IMPRESSION: NO ACUTE PROCESS.
[2021-10-26 22:34] LABS: Hyperchromasia Moderate; MCH 31.8 pg (25.0-35.0); MCHC 37.5 g/dL (31.0-37.0); MCV 84.8 fL (80.0-100.0); Mean Platelet Volume 8.9; Poikilocytosis Slight; RBC 2.02 m/uL (3.80-5.40); RDW 15.1 % (11.5-15.5)
[2021-10-26 22:40] LABS: HCT 17.2 % (34.0-46.0); HGB 6.4 gm/dL (11.4-16.0); Platelet Count 1 k/uL (150-450); WBC 0.1 k/uL (3.8-10.6)
[2021-10-26 22:43] LABS: Appearance,Urine Clear (Clear); Bacteria,Urine Rare /hpf; Bilirubin,Urine Negative (Negative); Blood,Urine Trace (Negative); Color,Urine Yellow; Glucose,Urine (UA) Negative (Negative); Hyaline Casts,Urine 3 /lpf (0-2); Ketones,Urine Negative (Negative); Leukocyte Esterase,Urine Negative (Negative); Mucus,Urine Rare /hpf; Nitrite,Urine Negative (Negative); PH, Urine 5.5 (5.0-8.0); Protein,Urine Trace (Negative); RBC,Urine 1 /hpf (0-5); Specific Gravity,Urine 1.022 (1.001-1.035); Squamous Epithelial Cell,Urine <1 /hpf (0-4); Urobilinogen,Urine <2.0 mg/dL (<2.0); WBC,Urine 1 /hpf (0-5)
[2021-10-26] MEDS: SODIUM CHLORIDE 0.9% 1,000 ML IV SCH (22:44)
[2021-10-26] MEDS: SODIUM CHLORIDE 0.9% 500 ML 500 ML IV SCH (22:44)
[2021-10-26 22:46] LABS: INR 0.9 (<1.2); Prothrombin Time 9.8 sec (9.0-12.0)
[2021-10-26 23:12] LABS: Potassium 3.6 mmol/L (3.5-5.1)
[2021-10-26 23:14] LABS: Albumin 3.6 g/dL (3.5-5.0); Calcium 9.2 mg/dL (8.4-10.2); Total Bilirubin 0.4 mg/dL (0.2-1.3); Total Protein 6.2 g/dL (6.3-8.2)
[2021-10-27] MEDS: SODIUM CHLORIDE 0.9% 500 ML 500 ML IV SCH (00:30)
[2021-10-27] MEDS ORDERED: NALOXONE 0.4 MG/ML 1 ML VIAL IV PRN (01:36)
[2021-10-27] MEDS ORDERED: ACYCLOVIR 800 MG TAB PO STA (02:19)
[2021-10-27] MEDS ORDERED: METOPROLOL TARTRATE 25 MG TAB PO STA (02:19)
[2021-10-27] MEDS: SODIUM CHLORIDE 0.9% 1,000 ML IV SCH ×3 (02:20→15:43)
--- NOTE | 2021-10-27 03:36 | P.HPIM ---
History of Present Illness H&P Date: 10/27/21 The patient is a 61-year-old female with a PMH of AML diagnosed 04/2021, currently on cytarabine, who presents to the emergency room for fever. The patient reports that she has been pancytopenic and was advised that if she was to develop fever, that she come to the emergency room. The patient denied any additional complaints. She reported a low-grade temperature with T-max of 102 at home all day yesterday. She also reported noticing some sores in her mouth and petechiae on her legs. She denied cough, shortness of breath, nausea, vomiting, diarrhea, abdominal pain, headaches, weakness, numbness, tingling. Laboratory evaluation was remarkable for pancytopenia with WBC count 0.1, hemoglobin 6.4, platelets 1, with ANC count 0.0. Review of systems: Pertinent positives and negatives as discussed in HPI, a complete review of systems was performed and all other systems are negative. Physical examination: General: non toxic, no distress, appears at stated age, obese Derm: Petechiae overlying bilateral lower extremities, no unusual ecchymoses, warm, dry Head: atraumatic, normocephalic, symmetric Eyes: EOMI, no lid lag, anicteric sclera, pupils equal round reactive to light ENT: Nose and ears atraumatic, no thrush, no pharyngeal erythema Neck: No thyromegaly, no cervical lymphadenopathy, trachea midline, supple Mouth: no lip lesion, mucus membranes moist Cardiovascular: S1S2 reg, no murmur, positive posterior tibial pulse bilateral, no edema, capillary refill less than 2 seconds Lungs: CTA bilateral, no rhonchi, no rales , no accessory muscle use Abdominal: soft, nontender to palpation, no guarding, no appreciable organomegaly, normal bowel sounds Ext: no gross muscle atrophy, muscle strength 5 out of 5 in all 4 extremities grossly, no contractures, Neuro: CN II-XI grossly intact, light touch intact all 4 extremities, finger to nose within normal limits, Psych: Alert, oriented, appropriate affect Assessment/plan Neutropenic fever -Continue with cefepime and acyclovir -Follow-up blood cultures -Oncology consulted -IV fluids -Neutropenic precautions Pancytopenia -1 unit of PRBCs irradiated and 1 unit of irradiated platelets ordered DVT prophylaxis -IPCDs The patient is admitted with an anticipated greater than 2 midnight stay for evaluation of neutropenic fever CODE STATUS: Full Code Discussed with: Patient Anticipated discharge date: 2-[address]: Home Past Medical History Past Medical History: Atrial Fibrillation, Cancer, GERD/Reflux, Hearing Disorder / Deafness, Osteoarthritis (OA), Pneumonia, Syncope Additional Past Medical History / Comment(s): AML, chemotherapy, neutropenia, neutropenic fever, pancytopenia, pneumonia/vented, paroxysmal Afib, syncope/c ause unknown, occasional R ear tinnitis, diverticular disease/benign polyp, UTI. History of Any Multi-Drug Resistant Organisms: None Reported Past Surgical History: Breast Surgery, Orthopedic Surgery Additional Past Surgical History / Comment(s): BMA, bronchoscopy, colonoscopy, breast biopsy, arthroscopy left and right knee Past Anesthesia/Blood Transfusion Reactions: No Reported Reaction Additional Past Anesthesia/Blood Transfusion Reaction / Comment(s): Pt has received blood without reaction. Past Psychological History: Anxiety Smoking Status: Never smoker Past Alcohol Use History: None Reported Past Drug Use History: None Reported - Past Family History Father Family Medical History: Cancer Mother Family Medical History: Coronary Artery Disease (CAD), Dementia Additional Family Medical History / Comment(s): Mother had coronary stents. She is from dementia. Medications and Allergies Home Medications Medication Instructions Recorded Confirmed Type PARoxetine [Paxil] 10 mg PO DAILY 12/17/18 10/26/21 History Metoprolol Tartrate [Lopressor] 25 mg PO BID 10/13/21 10/26/21 History Midostaurin [Rydapt] 25 mg PO DIRECTED 10/13/21 10/26/21 History Acyclovir 400 mg PO BID #60 tablet 10/18/21 10/26/21 Rx Levofloxacin [Levaquin] 500 mg PO DAILY 1 Days #30 tab 10/18/21 10/26/21 Rx prednisoLONE ACETATE 1% OPHTH 1 drops BOTH EYES QID ml 10/18/21 10/26/21 Rx [Pred Forte 1%] Allergies Allergy/AdvReac Type Severity Reaction Status Date / Time vancomycin Allergy Rash/Hives Verified 10/26/21 22:20 Physical Exam Vitals: Vital Signs Temp Pulse Resp BP Pulse Ox 10/27/21 01:51 99.0 F 81 18 124/61 10/27/21 01:21 99.2 F 89 16 123/50 97 12/03/21 01:11 99.1 F 84 16 125/65 10/27/21 00:30 99.4 F 81 20 116/67 100 10/26/21 22:57 99.6 F 85 18 125/57 97 10/26/21 20:33 100.2 F H 128 H 26 H 148/72 100 Intake and Output 10/26/21 10/26/21 10/27/21 14:59 22:59 06:59 Intake Total 0 Balance 0 Intake: Blood Product 0 Rc Irr As1 Unit 0 [id number] Other: Weight 80.286 kg Results CBC & Chem 7: 10/26/21 22:00 10/26/21 22:00 Labs: Abnormal Lab Results - Last 24 Hours (Table) 10/26/21 10/26/21 10/26/21 Range/Units 22:00 22:00 22:00 WBC 0.1 L* (3.8-10.6) k/uL RBC 2.02 L (3.80-5.40) m/uL Hgb 6.4 L* D (11.4-16.0) gm/dL Hct 17.2 L* (34.0-46.0) % MCHC 37.5 H (31.0-37.0) g/dL Plt Count 1 L* D (150-450) k/uL Neutrophils # 0.0 L* (1.3-7.7) k/uL Lymphocytes # 0.1 L (1.0-4.8) k/uL BUN 21 H (7-17) mg/dL Creatinine 1.10 H (0.52-1.04) mg/dL Glucose 161 H (74-99) mg/dL Total Protein 6.2 L (6.3-8.2) g/dL Urine Protein Trace H (Negative) Urine Blood Trace H (Negative) Urine Bacteria Rare H (None) /hpf Hyaline Casts 3 H (0-2) /lpf Urine Mucus Rare H (None) /hpf Crossmatch 10/26/21 Range/Units 23:12 WBC (3.8-10.6) k/uL RBC (3.80-5.40) m/uL Hgb (11.4-16.0) gm/dL Hct (34.0-46.0) % MCHC (31.0-37.0) g/dL Plt Count (150-450) k/uL Neutrophils # (1.3-7.7) k/uL Lymphocytes # (1.0-4.8) k/uL BUN (7-17) mg/dL Creatinine (0.52-1.04) mg/dL Glucose (74-99) mg/dL Total Protein (6.3-8.2) g/dL Urine Protein (Negative) Urine Blood (Negative) Urine Bacteria (None) /hpf Hyaline Casts (0-2) /lpf Urine Mucus (None) /hpf Crossmatch See Detail
[2021-10-27] MEDS: METOPROLOL TARTRATE 25 MG TAB PO SCH ×2 (11:45→20:43)
[2021-10-27] MEDS: CEFEPIME 2 GM in SODIUM CHLORIDE 0.9% 100 ML IVPB SCH ×2 (11:46→22:18)
[2021-10-27] MEDS: PARoxetine 10 MG TAB PO SCH (11:50)
[2021-10-27] MEDS: ACYCLOVIR 200 MG CAP PO SCH ×2 (11:50→20:43)
[2021-10-27] MEDS: prednisoLONE ACETATE 1% OPHTH DROPS 5 ML BTL BOTH EYES SCH ×4 (15:44→20:42)
--- NOTE | 2021-10-27 19:57 | P.CONS ---
History of Present Illness - Reason for Consult Consult date: 10/27/21 AML Neuetropenic Fever Requesting physician: Sky Salazar - Chief Complaint fever - History of Present Illness Domi is status post consilidation cycle 2. She is on day 8 of Rydapt. She presented with fever of 100.2. Bloodcultures initiated, urinalysis, and chest xray. Platelets 4K and Hemoglin 6. Irradiated transfusions ordered and given. She has now been transferred to the 5th floor oncology to be monitored through night. Since her temp has not actually increased passed 100.4 since admission as long as cultures are negative and no increased fevers she may possibly be ok for dc tomorrow Review of Systems All systems: negative Constitutional: Reports as per HPI Past Medical History Past Medical History: Atrial Fibrillation, Cancer, GERD/Reflux, Hearing Disorder / Deafness, Osteoarthritis (OA), Pneumonia, Syncope Additional Past Medical History / Comment(s): AML, chemotherapy, neutropenia, neutropenic fever, pancytopenia, pneumonia/vented, paroxysmal Afib, syncope/cause unknown, occasional R ear tinnitis, diverticular disease/benign polyp, UTI. History of Any Multi-Drug Resistant Organisms: None Reported Past Surgical History: Breast Surgery, Orthopedic Surgery Additional Past Surgical History / Comment(s): BMA, bronchoscopy, colonoscopy, bilateral breast biopsies, arthroscopy left and right knee Past Anesthesia/Blood Transfusion Reactions: No Reported Reaction Additional Past Anesthesia/Blood Transfusion Reaction / Comm: Pt has received blood without reaction. Smoking Status: Never smoker - Past Family History Father Family Medical History: Cancer Mother Family Medical History: Coronary Artery Disease (CAD), Dementia Additional Family Medical History / Comment(s): Mother had coronary stents. She is from dementia. Medications and Allergies Home Medications Medication Instructions Recorded Confirmed Type PARoxetine [Paxil] 10 mg PO DAILY 12/17/18 10/26/21 History Metoprolol Tartrate [Lopressor] 25 mg PO BID 10/13/21 10/26/21 History Midostaurin [Rydapt] 25 mg PO DIRECTED 10/13/21 10/26/21 History Acyclovir 400 mg PO BID #60 tablet 10/18/21 10/26/21 Rx Levofloxacin [Levaquin] 500 mg PO DAILY 1 Days #30 tab 10/18/21 10/26/21 Rx prednisoLONE ACETATE 1% OPHTH 1 drops BOTH EYES QID ml 10/18/21 10/26/21 Rx [Pred Forte 1%] Allergies Allergy/AdvReac Type Severity Reaction Status Date / Time vancomycin Allergy Rash/Hives Verified 10/26/21 22:20 Physical Exam Vitals: Vital Signs Temp Pulse Pulse Resp BP BP Pulse Ox 10/27/21 18:01 98.5 F 84 16 159/83 99 10/27/21 15:47 99.9 F H 83 17 132/75 100 10/27/21 11:43 99.9 F H 76 16 133/67 100 10/27/21 11:30 87 16 125/77 98 10/27/21 11:00 85 16 125/68 98 10/27/21 10:00 98.9 F 84 16 116/63 96 10/27/21 09:15 98.9 F 92 16 118/69 98 10/27/21 09:08 99.0 F 89 16 124/62 98 10/27/21 08:50 98.9 F 84 18 111/73 98 10/27/21 06:15 98.8 F 87 20 119/63 97 10/27/21 05:30 98.9 F 75 18 117/65 96 10/27/21 03:45 98.9 F 74 18 118/68 94 L 10/27/21 01:51 99.0 F 81 18 124/61 10/27/21 01:21 99.2 F 89 16 123/50 97 10/27/21 01:11 99.1 F 84 16 125/65 10/27/21 00:30 99.4 F 81 20 116/67 100 10/26/21 22:57 99.6 F 85 18 125/57 97 10/26/21 20:33 100.2 F H 128 H 26 H 148/72 100 Intake and Output 10/27/21 10/27/21 10/27/21 06:59 14:59 22:59 Intake Total 632 310 576 Balance 632 310 576 Intake: Intake, IV Titration 260 Amount Sodium Chloride 0.9% 1, 260 000 ml @ 130 mls/hr IV . [id number] [facility] Rx#:[id number] Blood Product 632 310 316 Platelet Pheresis Pas 322 0 316 Psoralen Unit [id number] Rc Irr As1 Unit 310 [id number] Irr As1 Unit 310 [id number] Other: Weight 80.286 kg - Constitutional General appearance: cooperative, no acute distress - EENT Eyes: EOMI ENT: hard of hearing, NA/AT - Neck Neck: normal ROM - Respiratory Respiratory: bilateral: CTA - Cardiovascular Rhythm: regular - Gastrointestinal General gastrointestinal: normal bowel sounds, soft - Integumentary Integumentary: pale - Neurologic Neurologic: CNII-XII intact - Musculoskeletal Musculoskeletal: generalized weakness - Psychiatric Psychiatric: A&O x's 3, appropriate affect, intact judgment & insight Results CBC & Chem 7: 10/26/21 22:00 10/26/21 22:00 Labs: Abnormal Lab Results - Last 24 Hours (Table) 10/26/21 10/26/21 10/26/21 Range/Units 22:00 22:00 22:00 WBC 0.1 L* (3.8-10.6) k/uL RBC 2.02 L (3.80-5.40) m/uL Hgb 6.4 L* D (11.4-16.0) gm/dL Hct 17.2 L* (34.0-46.0) % MCHC 37.5 H (31.0-37.0) g/dL Plt Count 1 L* D (150-450) k/uL Neutrophils # 0.0 L* (1.3-7.7) k/uL Lymphocytes # 0.1 L (1.0-4.8) k/uL BUN 21 H (7-17) mg/dL Creatinine 1.10 H (0.52-1.04) mg/dL Glucose 161 H (74-99) mg/dL Total Protein 6.2 L (6.3-8.2) g/dL Urine Protein Trace H (Negative) Urine Blood Trace H (Negative) Urine Bacteria Rare H (None) /hpf Hyaline Casts 3 H (0-2) /lpf Urine Mucus Rare H (None) /hpf Crossmatch 10/26/21 Range/Units 23:12 WBC (3.8-10.6) k/uL RBC (3.80-5.40) m/uL Hgb (11.4-16.0) gm/dL Hct (34.0-46.0) % MCHC (31.0-37.0) g/dL Plt Count (150-450) k/uL Neutrophils # (1.3-7.7) k/uL Lymphocytes # (1.0-4.8) k/uL BUN (7-17) mg/dL Creatinine (0.52-1.04) mg/dL Glucose (74-99) mg/dL Total Protein (6.3-8.2) g/dL Urine Protein (Negative) Urine Blood (Negative) Urine Bacteria (None) /hpf Hyaline Casts (0-2) /lpf Urine Mucus (None) /hpf Crossmatch See Detail Chest x-ray: report reviewed Assessment and Plan (1) Anemia Current Visit: Yes Status: Acute Priority: High Code(s): D64.9 - ANEMIA, UNSPECIFIED SNOMED Code(s): 001662005 (2) Neutropenic fever Current Visit: Yes Status: Acute Priority: High Code(s): D70.9 - NEUTROPENIA, UNSPECIFIED; R50.81 - FEVER PRESENTING WITH CONDITIONS CLASSIFIED ELSEWHERE SNOMED Code(s): 436558805 (3) Thrombocytopenia Current Visit: Yes Status: Acute Priority: High Code(s): D69.6 - THROMBOCYTOPENIA, UNSPECIFIED SNOMED Code(s): 500698260 (4) AML (acute myeloid leukemia) Current Visit: No Status: Acute Priority: High Code(s): C92.00 - ACUTE MYELOBLASTIC LEUKEMIA, NOT HAVING ACHIEVED REMISSION SNOMED Code(s): 29039102 Plan: COntinue on Antibiotics Monitor CBC, CMP Monitor for fevers COntinue Rydapt She received neulasta on 10/18, she is in remisison Irradiated blood products only Ok for discharge tomorrow if afebrile and cultures negative Physician atttest: I have completed the full history and physical and agree with above dictation, dictated as a scribe
[2021-10-27 21:38] LABS: HGB 7.3 gm/dL (11.4-16.0); Hyperchromasia Slight; MCH 30.7 pg (25.0-35.0); MCHC 36.7 g/dL (31.0-37.0); MCV 83.6 fL (80.0-100.0); Mean Platelet Volume 8.8; Poikilocytosis Slight; RBC 2.36 m/uL (3.80-5.40); RDW 14.5 % (11.5-15.5)
[2021-10-27 22:12] LABS: HCT 19.8 % (34.0-46.0)
[2021-10-27 22:30] LABS: WBC 0.1 k/uL (3.8-10.6)
[2021-10-27 22:33] LABS: Platelet Count 23 k/uL (150-450)
[2021-10-28] MEDS: SODIUM CHLORIDE 0.9% 1,000 ML IV SCH ×4 (04:20→17:44)
[2021-10-28 07:40] LABS: HCT 20.1 % (34.0-46.0); HGB 7.4 gm/dL (11.4-16.0); Hyperchromasia Slight; MCHC 36.8 g/dL (31.0-37.0); MCV 84.1 fL (80.0-100.0); Mean Platelet Volume 8.7; Poikilocytosis Slight; RBC 2.39 m/uL (3.80-5.40); RDW 14.2 % (11.5-15.5)
[2021-10-28] MEDS: METOPROLOL TARTRATE 25 MG TAB PO SCH ×2 (08:14→20:31)
[2021-10-28] MEDS: prednisoLONE ACETATE 1% OPHTH DROPS 5 ML BTL BOTH EYES SCH ×4 (08:14→20:31)
[2021-10-28] MEDS: ACYCLOVIR 200 MG CAP PO SCH ×2 (08:14→20:30)
[2021-10-28 08:15] LABS: WBC 0.2 k/uL (3.8-10.6)
[2021-10-28] MEDS: PARoxetine 10 MG TAB PO SCH (08:26)
[2021-10-28 08:32] LABS: Platelet Count 16 k/uL (150-450)
--- NOTE | 2021-10-28 09:20 | P.PN ---
Subjective Progress Note Date: 10/28/21 Principal diagnosis: Febrile Neutropenia Remains afebrile with only mildly elevated temps (could be Rydapt) and cultures negative. Platelets 16K Objective - Vital Signs Vital signs: Vital Signs Temp 99.8 F H 10/28/21 04:45 Pulse 83 10/28/21 08:24 Resp 20 10/28/21 04:45 BP 117/79 10/28/21 08:24 Pulse Ox 97 10/28/21 04:45 Intake & Output 10/27/21 10/28/21 10/28/21 18:59 06:59 18:59 Intake Total 886 375 Balance 886 375 Weight 80.286 kg Intake: Intake, IV Titration 260 Amount Sodium Chloride 0.9% 1, 260 000 ml @ 130 mls/hr IV . Q7H42M [facility] Rx#:[id number] Oral 375 Blood Product 626 Platelet Pheresis Pas 316 Psoralen Unit [id number] Rc Irr As1 Unit 310 [id number] Other: Voiding Method Toilet # Voids 2 - Exam Alert and Oriented NAD Head: NC Alopecia Lungs: CTA Heart RRR Abdomen Soft Ext No edema - Labs CBC & Chem 7: 10/29/21 06:12 10/29/21 06:12 Labs: Abnormal Lab Results - Last 24 Hours (Table) 10/26/21 10/27/21 10/28/21 Range/Units 23:12 21:12 07:19 WBC 0.1 L* 0.2 L* (3.8-10.6) k/uL RBC 2.36 L 2.39 L (3.80-5.40) m/uL Hgb 7.3 L 7.4 L (11.4-16.0) gm/dL Hct 19.8 L* 20.1 L (34.0-46.0) % Plt Count 23 L D 16 L* (150-450) k/uL Crossmatch See Detail Microbiology - Last 24 Hours (Table) 10/26/21 22:00 Blood Culture - Preliminary Blood No Growth after 24 hours 10/26/21 22:00 Blood Culture - Preliminary Blood No Growth after 24 hours 10/26/21 22:15 Blood Culture - Preliminary Blood No Growth after 24 hours 10/26/21 22:00 Urine Culture - Preliminary Urine,Clean Catch Assessment and Plan (1) Anemia Status: Acute Priority: High Code(s): D64.9 - ANEMIA, UNSPECIFIED SNOMED Code(s): 387792008 (2) Neutropenic fever Status: Acute Priority: High Code(s): D70.9 - NEUTROPENIA, UNSPECIFIED; R50.81 - FEVER PRESENTING WITH CONDITIONS CLASSIFIED ELSEWHERE SNOMED Code(s): 245615509 (3) Thrombocytopenia Status: Acute Priority: High Code(s): D69.6 - THROMBOCYTOPENIA, UNSPECIFIED SNOMED Code(s): 520626128 (4) AML (acute myeloid leukemia) Status: Acute Priority: High Code(s): C92.00 - ACUTE MYELOBLASTIC LEUKEMIA, NOT HAVING ACHIEVED REMISSION SNOMED Code(s): 70239109 Plan: COntinue on Antibiotics Monitor CBC, CMP Monitor for fevers COntinue Rydapt She received neulasta on 10/18, she is in remisison Irradiated blood products only CT Brain due to new persistent headache and platelet count <1 Will hold Discharge till am
[2021-10-28] MEDS: CEFEPIME 2 GM in SODIUM CHLORIDE 0.9% 100 ML IVPB SCH ×2 (10:29→22:07)
--- NOTE | 2021-10-28 11:35 | P.DS ---
Providers Date of admission: 10/27/21 01:36 Attending physician: Vanessa Mart MD Consults: 10/27/21 01:40 Consult Physician Routine Consulting Provider: Enedelia Kelley Consult Reason/Comments: Your patient. AML. Pancytopenia with fever Do you want consulting provider notified?: Yes Primary care physician: Kelly Ahuja [facility] Course: Neutropenic fever Pancytopenia -1 unit of PRBCs irradiated and 1 unit of irradiated platelets given DVT prophylaxis -IPCDs Constitutional: No acute distress, conversant, pleasant Eyes: Anicteric sclerae, moist conjunctiva, no lid-lag PERRLA ENMT: NC/AT Oropharynx clear, no erythema, exudates Neck: Supple, FROM, no masses, or JVD No carotid bruits No thyromegaly Lungs: Clear to auscultation Clear to percussion Normal respiratory effort, no accessory muscle use Cardiovascular: Heart regular in rate and rhythm, No murmurs, gallops, or rubs No peripheral edema Abdominal: Soft Nontender, no guarding, rebound or rigidity Abdomen moving with respiration Normoactive bowel sounds No hepatomegaly, No splenomegaly No palpable mass No abdominal wall hernia noted Skin: Normal temperature, tone, texture, turgor No induration No subcutaneous nodules No rash, lesions No ulcers Extremities: No digital cyanosis No clubbing Pedal pulses intact and symmetrical Radial pulses intact and symmetrical Normal gait and station No calf tenderness Psychiatric:Alert and oriented to person, place and time Appropriate affect Intact judgement Neuro: Muscles Strength 5/5 in all 4 extremities Sensation to light touch grossly present throughout Cranial nerves II-XII grossly intact No focal sensory deficits Patient started on IV cefepime no fever today patient doesn't have any chest pain no shortness of breath no signs or symptoms of bleeding rate is around 16 patient stable follow-up with oncology on Saturday for repeat blood work and transfusion if needed patient to continue on cefepime and continue home dose of Levaquin to be reevaluated by oncology on Saturday Discharge plan febrile neutropenia fever resolved continue empiric cefepime and home Levaquin reevaluation by oncology early next week Leukemia Pancytopenia Patient Condition at Discharge: Stable Plan - Discharge Summary Discharge Rx Participant: No New Discharge Prescriptions: New Cefdinir 300 mg PO Q12HR #14 cap Acetaminophen Tab [Tylenol] 650 mg PO Q6HR PRN tab PRN Reason: Fever And/ Or Pain Continue PARoxetine [Paxil] 10 mg PO DAILY Metoprolol Tartrate [Lopressor] 25 mg PO BID Midostaurin [Rydapt] 25 mg PO DIRECTED Levofloxacin [Levaquin] 500 mg PO DAILY 1 Days #30 tab prednisoLONE ACETATE 1% OPHTH [Pred Forte 1%] 1 drops BOTH EYES QID ml Acyclovir 400 mg PO BID #60 tablet Discharge Medication List PARoxetine [Paxil] 10 mg PO DAILY 12/17/18 [History] Metoprolol Tartrate [Lopressor] 25 mg PO BID 10/13/21 [History] Midostaurin [Rydapt] 25 mg PO DIRECTED 10/13/21 [History] Acyclovir 400 mg PO BID #60 tablet 10/18/21 [Rx] Levofloxacin [Levaquin] 500 mg PO DAILY 1 Days #30 tab 10/18/21 [Rx] prednisoLONE ACETATE 1% OPHTH [Pred Forte 1%] 1 drops BOTH EYES QID ml 10/18/21 [Rx] Acetaminophen Tab [Tylenol] 650 mg PO Q6HR PRN tab 10/28/21 [Rx] Cefdinir 300 mg PO Q12HR #14 cap 10/28/21 [Rx] Follow up Appointment(s)/Referral(s): Kelly Ahuja MD [Primary Care Provider] - 1-2 days Discharge Disposition: HOME SELF-CARE
[2021-10-28 12:05] LABS: ALT 21 U/L (8-44); AST 19 U/L (13-35); African American GFR (CKD) 92.9 (60.0-200.0); Albumin 3.4 g/dL (3.8-4.9); Albumin/Globulin Ratio 1.89 (1.60-3.17); Alkaline Phosphatase 94 U/L (41-126); Blood Urea Nitrogen 12.8 mg/dL (9.0-27.0); Calcium 8.7 mg/dL (8.7-10.3); Carbon Dioxide 25.6 mmol/L (20.0-27.5); Chloride 108 mmol/L (96-109); Globulin 1.8 g/dL (1.6-3.3); Glucose 104 mg/dL (70-110); Magnesium 1.8 mg/dL (1.5-2.4); Non-African American GFR(CKD) 80.1 (60.0-200.0); Potassium 3.9 mmol/L (3.5-5.5); Sodium 144 mmol/L (135-145); Total Protein 5.2 g/dL (6.2-8.2)
[2021-10-28] MEDS: ACETAMINOPHEN TAB 325 MG TAB PO PRN (12:37)
--- NOTE | 2021-10-28 13:13 | P.PN ---
Subjective Progress Note Date: 10/28/21 Principal diagnosis: Physical examination: patient patient begin to feel little bit worse this afternoon General: non toxic, no distress, appears at stated age, obese Derm: Petechiae overlying bilateral lower extremities, no unusual ecchymoses, warm, dry Head: atraumatic, normocephalic, symmetric Eyes: EOMI, no lid lag, anicteric sclera, pupils equal round reactive to light ENT: Nose and ears atraumatic, no thrush, no pharyngeal erythema Neck: No thyromegaly, no cervical lymphadenopathy, trachea midline, supple Mouth: no lip lesion, mucus membranes moist Cardiovascular: S1S2 reg, no murmur, positive posterior tibial pulse bilateral, no edema, capillary refill less than 2 seconds Lungs: CTA bilateral, no rhonchi, no rales , no accessory muscle use Abdominal: soft, nontender to palpation, no guarding, no appreciable organomegaly, normal bowel sounds Ext: no gross muscle atrophy, muscle strength 5 out of 5 in all 4 extremities grossly, no contractures, Neuro: CN II-XI grossly intact, light touch intact all 4 extremities, finger to nose within normal limits, Psych: Alert, oriented, appropriate affect Assessment/plan Neutropenic fever -Continue with cefepime and acyclovir -Follow-up blood cultures -Oncology consulted -IV fluids -Neutropenic precautions Pancytopenia -1 unit of PRBCs irradiated and 1 unit of irradiated platelets ordered Patient begin to feel little bit worse over the last few hours we will observe again overnight Objective - Vital Signs Vital signs: Vital Signs Temp 99.2 F 10/28/21 12:38 Pulse 81 10/28/21 12:38 Resp 17 10/28/21 12:38 BP 113/72 10/28/21 12:38 Pulse Ox 98 10/28/21 12:38 Intake & Output 10/27/21 10/28/21 10/28/21 18:59 06:59 18:59 Intake Total 886 375 Balance 886 375 Weight 80.286 kg Intake: Intake, IV Titration 260 Amount Sodium Chloride 0.9% 1, 260 000 ml @ 130 mls/hr IV . Q7H42M [facility] Rx#:[id number] Oral 375 Blood Product 626 Platelet Pheresis Pas 316 Psoralen Unit [id number] Rc Irr As1 Unit 310 [id number] Other: Voiding Method Toilet # Voids 2 2 - Labs CBC & Chem 7: 10/28/21 07:19 10/28/21 07:19 Labs: Abnormal Lab Results - Last 24 Hours (Table) 10/26/21 10/27/21 10/28/21 Range/Units 23:12 21:12 07:19 WBC 0.1 L* 0.2 L* (3.8-10.6) k/uL RBC 2.36 L 2.39 L (3.80-5.40) m/uL Hgb 7.3 L 7.4 L (11.4-16.0) gm/dL Hct 19.8 L* 20.1 L (34.0-46.0) % Plt Count 23 L D 16 L* (150-450) k/uL Total Protein (6.2-8.2) g/dL Albumin (3.8-4.9) g/dL Crossmatch See Detail 10/28/21 Range/Units 07:19 WBC (3.8-10.6) k/uL RBC (3.80-5.40) m/uL Hgb (11.4-16.0) gm/dL Hct (34.0-46.0) % Plt Count (150-450) k/uL Total Protein 5.2 L (6.2-8.2) g/dL Albumin 3.4 L (3.8-4.9) g/dL Crossmatch Microbiology - Last 24 Hours (Table) 10/26/21 22:00 Blood Culture - Preliminary Blood No Growth after 24 hours 10/26/21 22:00 Blood Culture - Preliminary Blood No Growth after 24 hours 10/26/21 22:15 Blood Culture - Preliminary Blood No Growth after 24 hours 10/26/21 22:00 Urine Culture - Preliminary Urine,Clean Catch
[2021-10-28] MEDS ORDERED: HYDROCORTISONE 1% CREAM 30 GM TUBE TOPICAL PRN (13:45)
--- NOTE | 2021-10-28 15:23 | CT ---
EXAMINATION TYPE: CT brain wo con DATE OF EXAM: 10/28/2021 COMPARISON: 08/30/2021 HISTORY: Headache. History of leukemia. CT DLP: 1097.[address] of the brain was performed. The ventricles, basal cisterns and sulci overlying the cerebral convexities demonstrate mild enlargem ent. There is no evidence for intracranial hemorrhage or sulcal effacement. There is decreased attenuation about the periventricular white matter and deep white matter of both c erebral hemispheres, compatible with chronic small vessel ischemia. Differential diagnosis does inclu de demyelination. No mass effects are seen.No midline shift. Osseous calvarium is intact. If symptoms persist consider MRI. IMPRESSION: 1. Age related atrophic and chronic small vessel ischemic change without acute intracranial process s een at this time.
[2021-10-28 18:42] LABS: HGB 7.2 gm/dL (11.4-16.0); Hyperchromasia Moderate; MCH 31.8 pg (25.0-35.0); MCHC 37.1 g/dL (31.0-37.0); MCV 85.6 fL (80.0-100.0); Mean Platelet Volume 9.8; Platelet Count 20 k/uL (150-450); Poikilocytosis Slight; RBC 2.28 m/uL (3.80-5.40); RDW 15.2 % (11.5-15.5)
[2021-10-28 18:55] LABS: WBC 0.2 k/uL (3.8-10.6)
[2021-10-28 18:57] LABS: HCT 19.5 % (34.0-46.0)
[2021-10-28 19:14] LABS: Anisocytosis (M) Present
[2021-10-29] MEDS: SODIUM CHLORIDE 0.9% 1,000 ML IV SCH ×3 (05:31→13:32)
[2021-10-29 06:57] LABS: HGB 7.3 gm/dL (11.4-16.0); Hyperchromasia Moderate; MCH 31.2 pg (25.0-35.0); MCHC 36.4 g/dL (31.0-37.0); MCV 85.7 fL (80.0-100.0); Mean Platelet Volume 8.4; Poikilocytosis Slight; RBC 2.32 m/uL (3.80-5.40)
[2021-10-29 07:39] LABS: WBC 0.1 k/uL (3.8-10.6)
[2021-10-29 07:40] LABS: HCT 19.9 % (34.0-46.0); Platelet Count 11 k/uL (150-450)
[2021-10-29] MEDS: PARoxetine 10 MG TAB PO SCH (08:11)
[2021-10-29] MEDS: ACYCLOVIR 200 MG CAP PO SCH (08:11)
[2021-10-29] MEDS: METOPROLOL TARTRATE 25 MG TAB PO SCH (08:11)
[2021-10-29] MEDS: ACETAMINOPHEN TAB 325 MG TAB PO PRN (08:12)
[2021-10-29] MEDS: prednisoLONE ACETATE 1% OPHTH DROPS 5 ML BTL BOTH EYES SCH ×2 (08:13→12:21)
--- NOTE | 2021-10-29 09:34 | P.PN ---
Subjective Progress Note Date: 10/29/21 Principal diagnosis: Febrile Neutropenia Discharge held on 10/28/21. Patient had complains of headache, nausea and "did not feel right" with her platelets dropping to 1 and new complains of headache CT without contrast performed to assess for bleed, negative. Objective - Vital Signs Vital signs: Vital Signs Temp 98.9 F 10/29/21 08:10 Pulse 85 10/29/21 08:10 Resp 20 10/29/21 05:00 BP 134/66 10/29/21 08:10 Pulse Ox 97 10/29/21 05:00 Intake & Output 10/28/21 10/29/21 10/29/21 18:59 06:59 18:59 Intake Total 1140 400 Balance 1140 400 Intake: Intake, IV Titration 1140 Amount Cefepime 2 gm In Sodium 100 Chloride 0.9% 100 ml @ 200 mls/hr IVPB Q12H [facility] Rx#:[id number] Sodium Chloride 0.9% 1, 1040 000 ml @ 130 mls/hr IV . Q7H42M [facility] Rx#:[id number] Oral 400 Other: Voiding Method Toilet # Voids 2 2 - Exam Alert and Oriented NAD Head: NC Alopecia Lungs: CTA Heart RRR Abdomen Soft Ext No edema - Labs CBC & Chem 7: 10/29/21 06:12 10/29/21 06:12 Labs: Abnormal Lab Results - Last 24 Hours (Table) 10/28/21 10/28/21 10/29/21 Range/Units 07:19 17:39 06:12 WBC 0.2 L* 0.1 L* (3.8-10.6) k/uL RBC 2.28 L 2.32 L (3.80-5.40) m/uL Hgb 7.2 L 7.3 L (11.4-16.0) gm/dL Hct 19.5 L* 19.9 L* (34.0-46.0) % MCHC 37.1 H (31.0-37.0) g/dL Plt Count 20 L 11 L* (150-450) k/uL Total Protein 5.2 L (6.2-8.2) g/dL Albumin 3.4 L (3.8-4.9) g/dL Microbiology - Last 24 Hours (Table) 10/26/21 22:00 Blood Culture - Preliminary Blood No Growth after 48 hours 10/26/21 22:00 Blood Culture - Preliminary Blood No Growth after 48 hours 10/26/21 22:15 Blood Culture - Preliminary Blood No Growth after 48 hours 10/26/21 22:00 Urine Culture - Final Urine,Clean Catch Assessment and Plan (1) Anemia Status: Acute Priority: High Code(s): D64.9 - ANEMIA, UNSPECIFIED SNOMED Code(s): 213535401 (2) Neutropenic fever Status: Acute Priority: High Code(s): D70.9 - NEUTROPENIA, UNSPECIFIED; R50.81 - FEVER PRESENTING WITH CONDITIONS CLASSIFIED ELSEWHERE SNOMED Code(s): 965297098 (3) Thrombocytopenia Status: Acute Priority: High Code(s): D69.6 - THROMBOCYTOPENIA, UNSPECIFIED SNOMED Code(s): 575067615 (4) AML (acute myeloid leukemia) Status: Acute Priority: High Code(s): C92.00 - ACUTE MYELOBLASTIC LEUKEMIA, NOT HAVING ACHIEVED REMISSION SNOMED Code(s): 06813765 Plan: COntinue on Antibiotics Monitor CBC, CMP Monitor for fevers COntinue Rydapt She received neulasta on 10/18, she is in remisison Irradiated blood products only CT Brain due to new persistent headache and platelet count <1, No evidence of bleed She is feeling better and afebrile Would like to be discharged COVID test neg from today Will see Dr. Kelley in office Saturday as Scheduled
[2021-10-29 09:50] LABS: African American GFR (CKD) 95.6 (60.0-200.0); Albumin 3.5 g/dL (3.8-4.9); Albumin/Globulin Ratio 1.72 (1.60-3.17); Anion Gap 10.1 mmol/L (10.00-18.00); BUN/Creat Ratio 18.18 Ratio (12.00-20.00); Blood Urea Nitrogen 14.2 mg/dL (9.0-27.0); Calcium 8.7 mg/dL (8.7-10.3); Carbon Dioxide 26.7 mmol/L (20.0-27.5); Non-African American GFR(CKD) 82.5 (60.0-200.0); Potassium 3.6 mmol/L (3.5-5.5); Total Bilirubin 0.6 mg/dL (0.30-1.20); Total Protein 5.5 g/dL (6.2-8.2)
[2021-10-29 11:16] VITALS: TEMP 98.3
[2021-10-29 12:16] VITALS: BP 113/55; PULSE 80; RESP 16
[2021-10-29] MEDS: CEFEPIME 2 GM in SODIUM CHLORIDE 0.9% 100 ML IVPB SCH (12:21)
--- NOTE | 2021-10-29 13:45 | P.PN ---
Subjective Progress Note Date: 10/29/21 Neutropenic fever -Continue with cefepime and acyclovir -Follow-up blood cultures -Oncology consulted -IV fluids -Neutropenic precautions Computed tomography scan of the brain is negative Pancytopenia -Patient still have thrombocytopenia 11 we will transfuse and will discus with oncology Constitutional: No acute distress, conversant, pleasant Eyes: Anicteric sclerae, moist conjunctiva, no lid-lag PERRLA ENMT: NC/AT Oropharynx clear, no erythema, exudates Neck: Supple, FROM, no masses, or JVD No carotid bruits No thyromegaly Lungs: Clear to auscultation Clear to percussion Normal respiratory effort, no accessory muscle use Cardiovascular: Heart regular in rate and rhythm, No murmurs, gallops, or rubs No peripheral edema Abdominal: Soft Nontender, no guarding, rebound or rigidity Abdomen moving with respiration Normoactive bowel sounds No hepatomegaly, No splenomegaly No palpable mass No abdominal wall hernia noted Skin: Normal temperature, tone, texture, turgor No induration No subcutaneous nodules No rash, lesions No ulcers Extremities: No digital cyanosis No clubbing Pedal pulses intact and symmetrical Radial pulses intact and symmetrical Normal gait and station No calf tenderness Psychiatric:Alert and oriented to person, place and time Appropriate affect Intact judgement Neuro: Muscles Strength 5/5 in all 4 extremities Sensation to light touch grossly present throughout Cranial nerves II-XII grossly intact No focal sensory deficits Patient feels better today no chest pain no shortness of breath still have some headaches Objective - Vital Signs Vital signs: Vital Signs Temp 98.3 F 10/29/21 12:03 Pulse 80 10/29/21 12:03 Resp 16 10/29/21 12:03 BP 113/55 10/29/21 12:03 Pulse Ox 96 10/29/21 12:03 Intake & Output 10/28/21 10/29/21 10/29/21 18:59 06:59 18:59 Intake Total 1140 400 344 Balance 1140 400 344 Intake: Intake, IV Titration 1140 Amount Cefepime 2 gm In Sodium 100 Chloride 0.9% 100 ml @ 200 mls/hr IVPB Q12H [facility] Rx#:[id number] Sodium Chloride 0.9% 1, 1040 000 ml @ 130 mls/hr IV . Q7H42M [facility] Rx#:[id number] Oral 400 Blood Product 344 Platelet Pheresis Pas 344 Psoralen Unit [id number] Other: Voiding Method Toilet # Voids 2 2 - Labs CBC & Chem 7: 10/29/21 06:12 10/29/21 06:12 Labs: Abnormal Lab Results - Last 24 Hours (Table) 10/28/21 10/29/21 10/29/21 Range/Units 17:39 06:12 06:12 WBC 0.2 L* 0.1 L* (3.8-10.6) k/uL RBC 2.28 L 2.32 L (3.80-5.40) m/uL Hgb 7.2 L 7.3 L (11.4-16.0) gm/dL Hct 19.5 L* 19.9 L* (34.0-46.0) % MCHC 37.1 H (31.0-37.0) g/dL Plt Count 20 L 11 L* (150-450) k/uL Total Protein 5.5 L (6.2-8.2) g/dL Albumin 3.5 L (3.8-4.9) g/dL Microbiology - Last 24 Hours (Table) 10/26/21 22:00 Blood Culture - Preliminary Blood No Growth after 48 hours 10/26/21 22:00 Blood Culture - Preliminary Blood No Growth after 48 hours 10/26/21 22:15 Blood Culture - Preliminary Blood No Growth after 48 hours 10/26/21 22:00 Urine Culture - Final Urine,Clean Catch
== END 2021-10-29 15:55 | disposition home or self-care (01) | DRG 809 ==
LOC: EC 20:24 → 5NMEDONC 10-27 01:36
PROVIDERS: ADMIT Internal Medicine; ATTEND Internal Medicine
PROC: 30233N1 Transfusion of Nonautologous Red Blood Cells into Peripheral Vein, Percutaneous Approach (ICD-10-PCS; principal; 2021-10-27)
PROC: 30233R1 Transfusion of Nonautologous Platelets into Peripheral Vein, Percutaneous Approach (ICD-10-PCS; principal; 2021-10-27)
DX: D61.818 Other pancytopenia (principal); C92.00 Acute myeloblastic leukemia, not having achieved remission; D70.9 Neutropenia, unspecified; R50.81 Fever presenting with conditions classified elsewhere; F41.9 Anxiety disorder, unspecified; H91.90 Unspecified hearing loss, unspecified ear; I48.0 Paroxysmal atrial fibrillation; Z79.899 Other long term (current) drug therapy; Z82.49 Family history of ischemic heart disease and other diseases of the circulatory system; Z20.822 Contact with and (suspected) exposure to COVID-19; R51.9 Headache, unspecified; K21.9 Gastro-esophageal reflux disease without esophagitis; M19.90 Unspecified osteoarthritis, unspecified site; K57.30 Diverticulosis of large intestine without perforation or abscess without bleeding; Z86.010 Personal history of colon polyps; Z98.890 Other specified postprocedural states; Z82.0 Family history of epilepsy and other diseases of the nervous system; Z87.01 Personal history of pneumonia (recurrent); Z80.9 Family history of malignant neoplasm, unspecified; Z79.2 Long term (current) use of antibiotics; Z88.1 Allergy status to other antibiotic agents; Z92.21 Personal history of antineoplastic chemotherapy
CPT/HCPCS: 36415; 70450; 71045; 80053; 81001; 83605; 83735; 84443; 84484; 85025; 85610; 85730; 86850; 86900; 86901; 86920; 87040; 87086; 87635; 93005; 96365; 99285

== ENCOUNTER 2021-11-03 11:55 | Inpatient (IN) | payer BC ==
[2021-11-03] MEDS ORDERED: oxyCODONE-APAP 5-325MG 1 EACH TAB PO PRN (14:43)
[2021-11-03] MEDS ORDERED: NALOXONE 0.4 MG/ML 1 ML VIAL IV PRN (14:43)
[2021-11-03] MEDS ORDERED: SODIUM CHLORIDE 0.9% 1,000 ML IV SCH (14:45)
--- NOTE | 2021-11-03 15:21 | XR ---
EXAMINATION TYPE: XR chest 1V portable DATE OF EXAM: 11/03/2021 COMPARISON: Chest x-ray 10/26/2021 HISTORY: Status post chemotherapy, fever TECHNIQUE: Single frontal view of the chest is obtained. FINDINGS: There is no focal air space opacity, pleural effusion, or pneumothorax seen. The cardiac silhouette size is within normal limits. There are prominent lung volumes, patient is rotated. The o sseous structures are intact. Left-sided PICC line shows the distal tip near the cavoatrial junction level. IMPRESSION: No acute process.
[2021-11-03] MEDS ORDERED: CEFEPIME 2 GM in SODIUM CHLORIDE 0.9% 100 ML IVPB ONE (16:00)
[2021-11-03] MEDS: SODIUM CHLORIDE 0.9% 1,000 ML IV SCH (16:20)
[2021-11-03 16:30] LABS: Basophils % (A) 0 %; Eosinophils % (A) 0 %; HCT 27.6 % (34.0-46.0); Lymphocytes # (A) 0.1 k/uL (1.0-4.8); Lymphocytes % (A) 11 %; MCHC 35.3 g/dL (31.0-37.0); Mean Platelet Volume 9.7; Monocytes # (A) 0.1 k/uL (0-1.0); Monocytes % (A) 15 %; Neutrophils # (A) 0.6 k/uL (1.3-7.7); Neutrophils % (A) 67 %; Poikilocytosis Slight; RBC 3.25 m/uL (3.80-5.40); RDW 13.4 % (11.5-15.5)
[2021-11-03 16:40] LABS: HGB 6.6 gm/dL (11.4-16.0)
[2021-11-03 16:41] LABS: Platelet Count 13 k/uL (150-450)
[2021-11-03 17:01] LABS: Chloride 99 mmol/L (98-107)
[2021-11-03 17:03] LABS: ALT 20 U/L (4-34); AST 30 U/L (14-36); African American GFR (CKD) 79 (>60 ml/min/1.73 sqM); Albumin 3.5 g/dL (3.5-5.0); Albumin/Globulin Ratio 1.3; Alkaline Phosphatase 96 U/L (38-126); Anion Gap 11 mmol/L; Bilirubin,Unconjugated 0.4 mg/dL (0.0-1.1); Blood Urea Nitrogen 17 mg/dL (7-17); Calcium 8.9 mg/dL (8.4-10.2); Carbon Dioxide 27 mmol/L (22-30); Globulin 2.6 g/dL; Glucose 150 mg/dL (74-99); LDH 568 U/L (313-618); Magnesium 1.7 mg/dL (1.6-2.3); Non-African American GFR(CKD) 68 (>60 ml/min/1.73 sqM); Potassium 3.8 mmol/L (3.5-5.1); Sodium 137 mmol/L (137-145); Total Bilirubin 0.5 mg/dL (0.2-1.3); Total Protein 6.1 g/dL (6.3-8.2)
[2021-11-03 17:25] LABS: Appearance,Urine Clear (Clear); Bilirubin,Urine Negative (Negative); Blood,Urine Negative (Negative); Color,Urine Light Yellow; Glucose,Urine (UA) Negative (Negative); Ketones,Urine Negative (Negative); Leukocyte Esterase,Urine Negative (Negative); Nitrite,Urine Negative (Negative); PH, Urine 5.5 (5.0-8.0); Protein,Urine Negative (Negative); Specific Gravity,Urine 1.009 (1.001-1.035); Urobilinogen,Urine <2.0 mg/dL (<2.0)
--- NOTE | 2021-11-03 17:39 | P.HPIM ---
History of Present Illness H&P Date: 11/03/21 Chief Complaint: Fevers 61-year-old woman with medical history of myelodysplastic syndrome currently on consolidation therapy with 2 cycles remaining, prolonged pancytopenia, paroxysmal atrial fibrillation, moderate to severe MR presented with fevers. Patient has been following with outpatient labs regarding her pancytopenia with neutropenia. She last received G-CSF approximately 1 week ago during her last hospitalization in which she was hospitalized for the same condition. During her previous hospitalization, no infectious source was identified and she was discharged on levofloxacin and cefdinir. In the last 2 blood counts across the last week her white blood cell count was noted to be increasing, however, she continues to spike fevers. Patient herself denies any complaints other than fevers and chills at night. Specifically she denies nausea, vomiting, chest pain, palpitations, cough, dyspnea, syncope, presyncope, abdominal pain, diarrhea, constipation, new rashes, numbness/weakness of her extremities. Upon arrival patient was afebrile, 119/63, heart rate 90, 98% on room air. CBC demonstrates pancytopenia with white blood cell count of 1 and absolute neutrophils of 600, hemoglobin 6.6, platelet count 13, chemistries are unremarkable, UA is normal. Chest x-ray was obtained and did not show any acute cardiopulmonary pathology. She was started on cefepime by oncology, and daptomycin by infectious disease, blood cultures drawn and pending, UA pending Review of Systems All Systems reviewed and pertinent positives and negatives noted in HPI, all other symptoms are negative Past Medical History Past Medical History: Atrial Fibrillation, Cancer, GERD/Reflux, Hearing Disorder / Deafness, Osteoarthritis (OA), Pneumonia, Syncope Additional Past Medical History / Comment(s): Pt recently admitted to [facility] on 10/27/21 with neutropenic fever, pancytopenia. Other hx: AML, chemotherapy, neutropenia, neutropenic fever, pancytopenia, pneumonia/vented, paroxysmal Afib, syncope/cause unknown, occasional R ear tinnitis, diverticular disease/benign polyp, UTI. History of Any Multi-Drug Resistant Organisms: None Reported Past Surgical History: Breast Surgery, Orthopedic Surgery Additional Past Surgical History / Comment(s): BMA, bronchoscopy, colonoscopy, bilateral breast biopsies, arthroscopy left and right knee Past Anesthesia/Blood Transfusion Reactions: No Reported Reaction Additional Past Anesthesia/Blood Transfusion Reaction / Comment(s): Pt has received blood without reaction. Past Psychological History: Anxiety Additional Psychological History / Comment(s): Pt resides with her spouse who is very helpful. She uses a walker occasionally. She has not driven since diagnosis/spouse drives. Smoking Status: Never smoker Past Alcohol Use History: None Reported Past Drug Use History: None Reported - Past Family History Father Family Medical History: Cancer Mother Family Medical History: Coronary Artery Disease (CAD), Dementia Additional Family Medical History / Comment(s): Mother had coronary stents. She is from dementia. Medications and Allergies Home Medications Medication Instructions Recorded Confirmed Type PARoxetine [Paxil] 10 mg PO DAILY 12/17/18 11/03/21 History Metoprolol Tartrate [Lopressor] 25 mg PO BID 10/13/21 11/03/21 History Midostaurin [Rydapt] 25 mg PO DIRECTED 10/13/21 11/03/21 History Acyclovir 400 mg PO BID #60 tablet 10/18/21 11/03/21 Rx Levofloxacin [Levaquin] 500 mg PO DAILY 1 Days #30 tab 10/18/21 11/03/21 Rx prednisoLONE ACETATE 1% OPHTH 1 drops BOTH EYES QID ml 10/18/21 11/03/21 Rx [Pred Forte 1%] Acetaminophen Tab [Tylenol] 650 mg PO Q6HR PRN tab 10/28/21 11/03/21 Rx Amoxic-Pot Clav 875-125Mg 1 tab PO BID@1200,2100 11/03/21 11/03/21 History [Augmentin 875-125] Nystatin 100,000 Unit/ml Susp 4 ml PO QID 11/03/21 11/03/21 History [Mycostatin Oral Susp] Allergies Allergy/AdvReac Type Severity Reaction Status Date / Time vancomycin Allergy Rash/Hives Verified 11/03/21 11:26 Physical Exam Osteopathic Statement: *. No significant issues noted on an osteopathic structural exam other than those noted in the History and Physical/Consult. Vitals: Vital Signs Temp Pulse Resp BP Pulse Ox 11/03/21 14:43 95 11/03/21 14:41 98.5 F 95 16 110/67 95 Intake and Output 11/03/21 11/03/21 11/03/21 06:59 14:59 22:59 Other: Weight 81.647 kg Gen: awake, alert HEENT: normocephalic, atraumatic, good hearing acuity, moist mucous membranes Resp: good air exchange, breathing comfortably with no accessory muscle use, clear to auscultation bilaterally CVS: good distal perfusion x 4, regular rate and rhythm, blowing systolic murmur GI: soft, NTTP, ND : no SPT, no CVAT, putnam catheter not present MSK: no pitting edema, no clubbing, bilateral petechia and lower extremities Neuro: non-focal, moving all extremities Psych: cooperative, euthymic mood Results CBC & Chem 7: 11/03/21 15:38 12 15:38 Labs: Abnormal Lab Results - Last 24 Hours (Table) 11/02/21 11/03/21 11/03/21 Range/Units 10:21 15:38 15:38 WBC 1.0 L* (3.8-10.6) k/uL RBC 3.25 L (3.80-5.40) m/uL Hgb 6.6 L* (11.4-16.0) gm/dL Hct 27.6 L (34.0-46.0) % Plt Count 13 L* (150-450) k/uL Neutrophils # 0.6 L (1.3-7.7) k/uL Lymphocytes # 0.1 L (1.0-4.8) k/uL Glucose 150 H (74-99) mg/dL Total Protein 6.1 L (6.3-8.2) g/dL Crossmatch See Detail Thrombosis Risk Factor Assmnt - Choose All That Apply Any of the Below Risk Factors Present?: Yes Each Factor Represents 1 point: Age 41-60 years, Obesity (BMI >25) Other Risk Factors: Yes Each Risk Factor Represents 2 Points: Malignancy Other congenital or acquired thrombophilia - If yes, enter type in comment: No Thrombosis Risk Factor Assessment Total Risk Factor Score: 4 Thrombosis Risk Factor Assessment Level: Moderate Risk Assessment and Plan Assessment: Neutropenic fevers Acute myelogenous leukemia Pancytopenia, chemo induced - Covid negative earlier today - Viral studies including influenza A/B, RSV pending - BCx pending - UA pending - CXR negative - ID, Heme/onc recs appreciated - Continue with cefepime History of Paroxysmal A fib with RVR, currently in normal sinus rhythm Moderate to severe MR - tele - patient is on metoprolol 25mg PO BID - not on AC due to pancytopenia - outpatient cardiology f/u for MR Patient is a full code enoxaparin for DVT PPx was considered, but deferred due to low platelets
--- NOTE | 2021-11-03 17:45 | P.CONS ---
History of Present Illness - Reason for Consult Consult date: 11/03/21 Fever, AML, cytopenias - History of Present Illness Mrs. Perrin is a 61-year-old female who we saw in end of May 2021 regarding sudden onset macrocytic anemia and thrombocytopenia, her labs had been normal up until 06/07 on routine lab drawn by her PCP. She had fever when seen at her PCP ofc and was sent to ER for garner culture workup, IV antibiotics and evaluation. Patient reported 12lb wt loss, declining energy levels and decreased stamina in the last few weeks. She was Covid negative. Iron studies significantly elevated (this was prior to transfusion), thyroid studies were normal, LDH elevated 438. MCV 109.7, renal function is normal. Hemoglobin 5.8 on admission, platelet count 38,000. Patient has had no other acute changes in her health, no other complaints. She received her second covid vaccine 04/07/21. She had BM bx and aspirate 06/21/21, AML diagnosis. She was initiated immediately on induction chemo with 7+3 regimen. She required intubation and extensive supportive care, transfusions. She recovered nicely, had f/u BM Bx and asp 07/25 revealing no ressidual AML, cytogenetics negative. 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 Acheived remission post induction per BMT team in [place]. 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 Discharged with instructions to continue Rydapt 50mg bid. Admitted for cycle #2 from 10/13-10/18/21. She was admitted again on 11/01/21 with low-grade temp and cytopenias requiring transfusions. Cultures were negative that admission. The patient came into the office today and she had spiked a temperature of 101 at home and was not feeling well. In the office her temperature was in the 99 range. She was sent for outpatient transfusions where she spiked to 100.8 again and was therefore recommended admission. She denies any specific localizing signs such as so throat, nasal congestion, cough or shortness of breath, abdominal pain or diarrhea, or urinary complaints. No history of any skin lesions. Her PICC line was placed 3 weeks ago. Review of Systems Constitutional: Reports fatigue, Reports fever, Reports weakness Eyes: denies blurred vision, denies pain Ears: deny: decreased hearing, ear discharge, earache, tinnitus Ears, nose, mouth and throat: Denies headache, Denies sore throat Cardiovascular: Reports decreased exercise tolerance Respiratory: Denies cough Gastrointestinal: Denies abdominal pain, Denies diarrhea, Denies nausea, Denies vomiting Genitourinary: Denies dysuria, Denies hematuria Menstruation: Reports postmenopausal Musculoskeletal: Reports muscle weakness Integumentary: Denies pruritus, Denies rash Neurological: Reports weakness Psychiatric: Reports anxiety Endocrine: Reports fatigue, Reports weight change Hematologic/Lymphatic: Reports as per HPI Past Medical History Past Medical History: Atrial Fibrillation, Cancer, GERD/Reflux, Hearing Disorder / Deafness, Osteoarthritis (OA), Pneumonia, Syncope Additional Past Medical History / Comment(s): Pt recently admitted to [facility] on with neutropenic fever, pancytopenia. Other hx: AML, chemotherapy, neutropenia, neutropenic fever, pancytopenia, pneumonia/vented, paroxysmal Afib, syncope/cause unknown, occasional R ear tinnitis, diverticular disease/benign polyp, UTI. History of Any Multi-Drug Resistant Organisms: None Reported Past Surgical History: Breast Surgery, Orthopedic Surgery Additional Past Surgical History / Comment(s): BMA, bronchoscopy, colonoscopy, bilateral breast biopsies, arthroscopy left and right knee Past Anesthesia/Blood Transfusion Reactions: No Reported Reaction Additional Past Anesthesia/Blood Transfusion Reaction / Comm: Pt has received blood without reaction. Past Psychological History: Anxiety Additional Psychological History / Comment(s): Pt resides with her spouse who is very helpful. She uses a walker occasionally. She has not driven since diagnosis/spouse drives. Smoking Status: Never smoker Past Alcohol Use History: None Reported Past Drug Use History: None Reported - Past Family History Father Family Medical History: Cancer Mother Family Medical History: Coronary Artery Disease (CAD), Dementia Additional Family Medical History / Comment(s): Mother had coronary stents. She is from dementia. Medications and Allergies Home Medications Medication Instructions Recorded Confirmed Type PARoxetine [Paxil] 10 mg PO DAILY 12/17/18 11/03/21 History Metoprolol Tartrate [Lopressor] 25 mg PO BID 10/13/21 11/03/21 History Midostaurin [Rydapt] 25 mg PO DIRECTED 10/13/21 11/03/21 History Acyclovir 400 mg PO BID #60 tablet 10/18/21 11/03/21 Rx Levofloxacin [Levaquin] 500 mg PO DAILY 1 Days #30 tab 10/18/21 11/03/21 Rx prednisoLONE ACETATE 1% OPHTH 1 drops BOTH EYES QID ml 10/18/21 11/03/21 Rx [Pred Forte 1%] Acetaminophen Tab [Tylenol] 650 mg PO Q6HR PRN tab 10/28/21 11/03/21 Rx Amoxic-Pot Clav 875-125Mg 1 tab PO BID@1200,2100 11/03/21 11/03/21 History [Augmentin 875-125] Nystatin 100,000 Unit/ml Susp 4 ml PO QID 11/03/21 11/03/21 History [Mycostatin Oral Susp] Allergies Allergy/AdvReac Type Severity Reaction Status Date / Time vancomycin Allergy Rash/Hives Verified 11/03/21 11:26 Physical Exam Vitals: Intake and Output 11/03/21 11/03/21 11/03/21 06:59 14:59 22:59 Other: Weight 81.647 kg - Constitutional General appearance: no acute distress - EENT Eyes: EOMI, PERRLA ENT: hearing grossly normal, normal oropharynx - Neck Neck: no lymphadenopathy - Respiratory Respiratory: bilateral: CTA - Cardiovascular Rhythm: regular Heart sounds: normal: S1, S2 - Gastrointestinal General gastrointestinal: normal bowel sounds, soft - Integumentary Integumentary: normal - Neurologic Neurologic: CNII-XII intact - Musculoskeletal PICC line left upper extremity. Insertion site appears clean Musculoskeletal: generalized weakness, strength equal bilaterally Results CBC & Chem 7: 11/03/21 15:38 11/03/21 15:38 Assessment and Plan Plan: #1. Febrile neutropeniathe patient's counts are actually showing some signs of early recovery with ANC greater than 500 today and also monocyte count of 330. However as the patient had recurrent fevers, it was decided to admit her. Case was discussed with the admitting service in detail. ID consult was also placed in case discussed with ID. Cultures have been ordered from the periphery and from the PICC line. Chest x-ray as well as urinalysis and culture also been ordered. - The patient will start IV antibiotics once blood cultures and urine samples are obtained. The patient had skin reaction with vancomycin previously. Therefore cefepime was ordered. Case was discussed with ID, it was decided to add daptomycin The patient does not appear toxic. Given her counts on possibility could be fever related to the beginning of WBC recovery #2. Pancytopeniadue to chemotherapy. The patient will receive 1 unit of PRBC and 1 unit of platelets. Continue to monitor and transfuse to keep hemoglobin greater than 7 and platelets greater than 10 #3. AML patient is currently in remission and undergoing consolidation. He has completed cycle #2 of consolidation. As long as she does not show any signs of progressive sepsis she can continue and complete Rydapt #4. Defer to the admitting service for management of her other medical problems
[2021-11-03] MEDS: METOPROLOL TARTRATE 25 MG TAB PO SCH (20:24)
[2021-11-03] MEDS: ACYCLOVIR 200 MG CAP PO SCH (20:24)
[2021-11-03] MEDS: NYSTATIN 100,000 UNIT/ML SUSP 500,000 UNIT/5 ML CUP PO SCH (20:24)
[2021-11-03] MEDS: prednisoLONE ACETATE 1% OPHTH DROPS 5 ML BTL BOTH EYES SCH (20:24)
[2021-11-03] MEDS: DAPTOmycin 500 MG in SODIUM CHLORIDE 0.9% 50 ML IVPB SCH (21:00)
[2021-11-03] MEDS: ACETAMINOPHEN TAB 325 MG TAB PO PRN (22:59)
[2021-11-04] MEDS: CEFEPIME 2 GM in SODIUM CHLORIDE 0.9% 100 ML IVPB SCH ×4 (01:36→23:33)
[2021-11-04] MEDS: SODIUM CHLORIDE 0.9% 1,000 ML IV SCH ×3 (01:36→20:10)
[2021-11-04 06:39] LABS: MCH 31.2 pg (25.0-35.0); MCHC 36.4 g/dL (31.0-37.0); MCV 85.5 fL (80.0-100.0); Mean Platelet Volume 9.6; Poikilocytosis Slight; RBC 2.16 m/uL (3.80-5.40)
[2021-11-04 06:40] LABS: HGB 6.7 gm/dL (11.4-16.0)
[2021-11-04 06:44] LABS: HCT 18.5 % (34.0-46.0); Platelet Count 22 k/uL (150-450)
[2021-11-04 06:57] LABS: Band Neutrophils % 4 %; Neutrophils % (M) 48 %; Nucleated Red Blood Cells 4 /100 WBC (0-0); Total Cells Counted 100
[2021-11-04 06:58] LABS: Lymphocytes # (M) 0.18 k/uL (1.0-4.8); Monocytes # (M) 0.44 k/uL (0-1.0); WBC 1.3 k/uL (3.8-10.6)
[2021-11-04] MEDS: NYSTATIN 100,000 UNIT/ML SUSP 500,000 UNIT/5 ML CUP PO SCH ×4 (08:13→20:08)
[2021-11-04] MEDS: METOPROLOL TARTRATE 25 MG TAB PO SCH ×2 (08:13→20:07)
[2021-11-04] MEDS: ACYCLOVIR 200 MG CAP PO SCH ×2 (08:13→20:08)
[2021-11-04] MEDS: prednisoLONE ACETATE 1% OPHTH DROPS 5 ML BTL BOTH EYES SCH ×4 (08:15→20:08)
[2021-11-04] MEDS: PARoxetine 10 MG TAB PO SCH (08:15)
[2021-11-04 09:27] LABS: ALT 19 U/L (8-44); AST 29 U/L (13-35); African American GFR (CKD) 88.1 (60.0-200.0); Albumin 3.4 g/dL (3.8-4.9); Albumin/Globulin Ratio 1.67 (1.60-3.17); Alkaline Phosphatase 88 U/L (41-126); BUN/Creat Ratio 15.43 Ratio (12.00-20.00); Blood Urea Nitrogen 12.9 mg/dL (9.0-27.0); Calcium 8.8 mg/dL (8.7-10.3); Carbon Dioxide 26.7 mmol/L (20.0-27.5); Chloride 107 mmol/L (96-109); Glucose 108 mg/dL (70-110); Sodium 144 mmol/L (135-145); Total Protein 5.5 g/dL (6.2-8.2)
[2021-11-04 09:28] LABS: Bilirubin, Conjugated <0.20 mg/dL (0.20-0.40); Magnesium 1.9 mg/dL (1.5-2.4)
[2021-11-04 09:34] VITALS: BMI 30.9
--- NOTE | 2021-11-04 11:44 | P.CONS ---
History of Present Illness - Reason for Consult Consult date: 11/03/21 Febrile neutropenia Requesting physician: Pablito Forte - Chief Complaint fever off and on x few days - History of Present Illness History of present illness : Patient is 61-year-old female with a past medical history significant for myelodysplastic syndrome currently on consolidation therapy with 2 cycles remaining patient with a previous history of febrile neutropenia prolonged hospital stay patient is now presenting to the hospital for evaluation of fever that has been off and on for the last few days the patient had denies having any chest pain or cough no URI symptoms no nausea no vomiting no abdominal pain had no diarrhea patient did have left arm double- lumen PICC line that was placed around October 11 or 2020 patient on presentation to the hospital did have a low-grade fever of 99.4 patient is currently not hypoxic on need for supplemental oxygen did have white count of 1.0 hemoglobin is 6.6 BUN and creatinine are normal liver exams are normal urine is negative patient did have a chest x-ray was negative for acute pulmonary process patient was started on cefepime infectious was consulted for further management of antibiotic therapy Review of system: CONSTITUTIONAL: Positive for weakness along with the fever. EYES: No complaint. ENT: No complaint. RESPIRATORY: No complaint. CARDIOVASCULAR: No complaint. GENITOURINARY: No complaint. GASTROINTESTINAL: No complaint. MUSCULOSKELETAL: No complaint. INTEGUMENTARY: No complaint. PSYCHOLOGIC: No complaint. ENDOCRINE: No complaint. NEUROLOGIC: No complaint. Past medical history : Reviewed, documented below Past surgical history : Reviewed, documented below Social history: Reviewed, documented below Medications: Reviewed, as documented below EXAMINATION: Vital sigans= Reviewed and documented below GENERAL DESCRIPTION: Middle-aged female lying in bed, no distress. No tachypnea or accessory muscle of respiration use. HEENT: Shows Pallor , no scleral icterus. Oral mucous membrane is dry. NECK: Trachea central, no thyromegaly. LUNGS: Unlabored breathing. Clear to auscultation anteriorly. No wheeze or crackle. HEART: S1, S2, regular rate and rhythm. ABDOMEN: Soft, no tenderness , guarding or rigidity EXTREMITIES: No edema of feet. SKIN: No rash, no masses palpable. NEUROLOGICAL: The patient is awake, alert, oriented x3, mood and affect normal. LABS AND RADIOLOGY: Reviewed results see below Assessment : 1-Patient presented to hospital with a fever in this patient did have a history of myelodysplastic syndrome currently undergoing chemotherapy in this patient did have a leukopenia no hemoglobin and no obvious localizing signs or symptoms for infection with a negative chest x-ray negative UA abdominal esophageal examination evidence of any cellulitis concern for possible PICC line infection 2-vancomycin allergy limiting the number of antibiotics safe to use Plan: 1-blood cultures from the PICC line and peripherally 2-continue with cefepime 3-we will add daptomycin 6 mg/kg daily We will follow on clinical condition and cultures to further adjust medication if needed Thank you for this consultation we will follow the patient along with you Past Medical History Past Medical History: Atrial Fibrillation, Cancer, GERD/Reflux, Hearing Disorder / Deafness, Osteoarthritis (OA), Pneumonia, Syncope Additional Past Medical History / Comment(s): Pt recently admitted to [facility] on 10/27/21 with neutropenic fever, pancytopenia. Other hx: AML, chemotherapy, neutropenia, neutropenic fever, pancytopenia, pneumonia/vented, paroxysmal Afib, syncope/cause unknown, occasional R ear tinnitis, diverticular disease/benign polyp, UTI. History of Any Multi-Drug Resistant Organisms: None Reported Past Surgical History: Breast Surgery, Orthopedic Surgery Additional Past Surgical History / Comment(s): BMA, bronchoscopy, colonoscopy, bilateral breast biopsies, arthroscopy left and right knee Past Anesthesia/Blood Transfusion Reactions: No Reported Reaction Additional Past Anesthesia/Blood Transfusion Reaction / Comm: Pt has received blood without reaction. Past Psychological History: Anxiety Additional Psychological History / Comment(s): Pt resides with her spouse who is very helpful. She uses a walker occasionally. She has not driven since diagnosis/spouse drives. Smoking Status: Never smoker Past Alcohol Use History: None Reported Past Drug Use History: None Reported - Past Family History Father Family Medical History: Cancer Mother Family Medical History: Coronary Artery Disease (CAD), Dementia Additional Family Medical History / Comment(s): Mother had coronary stents. She is from dementia. Medications and Allergies Home Medications Medication Instructions Recorded Confirmed Type PARoxetine [Paxil] 10 mg PO DAILY 12/17/18 11/03/21 History Metoprolol Tartrate [Lopressor] 25 mg PO BID 10/13/21 11/03/21 History Midostaurin [Rydapt] 25 mg PO DIRECTED 10/13/21 11/03/21 History Acyclovir 400 mg PO BID #60 tablet 10/18/21 11/03/21 Rx Levofloxacin [Levaquin] 500 mg PO DAILY 1 Days #30 tab 10/18/21 11/03/21 Rx prednisoLONE ACETATE 1% OPHTH 1 drops BOTH EYES QID ml 10/18/21 11/03/21 Rx [Pred Forte 1%] Acetaminophen Tab [Tylenol] 650 mg PO Q6HR PRN tab 10/28/21 11/03/21 Rx Amoxic-Pot Clav 875-125Mg 1 tab PO BID@1200,2100 11/03/21 11/03/21 History [Augmentin 875-125] Nystatin 100,000 Unit/ml Susp 4 ml PO QID 11/03/21 11/03/21 History [Mycostatin Oral Susp] Allergies Allergy/AdvReac Type Severity Reaction Status Date / Time vancomycin Allergy Rash/Hives Verified 11/03/21 11:26 Physical Exam Vitals: Vital Signs Temp Pulse Resp BP Pulse Ox 11/03/21 14:43 95 11/03/21 14:41 98.5 F 95 16 110/67 95 Intake and Output 11/03/21 11/03/21 11/03/21 06:59 14:59 22:59 Other: Weight 81.647 kg Results CBC & Chem 7: 11/04/21 05:32 11/04/21 05:32
--- NOTE | 2021-11-04 12:06 | P.PN ---
Subjective Progress Note Date: 11/04/21 Patient spiked additional fever to 101 yesterday, still has no localizing complaints. At the time for fever she also experienced chills shortly thereafter. These episodes seem to be in cyclic pattern predominantly at night before she goes to sleep. Present culture data do not identify an etiology. Objective - Vital Signs Vital signs: Vital Signs Temp 99.0 F 11/04/21 08:11 Pulse 94 11/04/21 08:11 Resp 16 11/04/21 08:11 BP 121/68 11/04/21 08:11 Pulse Ox 95 11/04/21 08:11 Intake & Output 11/03/21 11/04/21 11/04/21 18:59 06:59 18:59 Intake Total 100 2837 Balance 100 2837 Weight 81.647 kg 81.647 kg Intake: Intake, IV Titration 100 1650 Amount Cefepime 2 gm In Sodium 100 100 Chloride 0.9% 100 ml @ 200 mls/hr IVPB ONCE ONE Rx#:[id number] DAPTOmycin 500 mg In 50 Sodium Chloride 0.9% 50 ml @ 100 mls/hr IVPB Q24H [facility] Rx#:[id number] Sodium Chloride 0.9% 1, 1500 000 ml @ 150 mls/hr IV . Q6H40M [facility] Rx#:[id number] Oral 600 Blood Product 0 587 Platelet Pheresis Pas 277 Psoralen Unit [id number] Rc Irr As1 Unit 0 310 [id number] Other: Voiding Method Toilet Toilet # Voids 5 - Exam Gen: awake, alert HEENT: normocephalic, atraumatic, good hearing acuity, moist mucous membranes Resp: good air exchange, breathing comfortably with no accessory muscle use, clear to auscultation bilaterally CVS: good distal perfusion x 4, regular rate and rhythm, blowing systolic murmur GI: soft, NTTP, ND : no SPT, no CVAT, putnam catheter not present MSK: no pitting edema, no clubbing, bilateral petechia and lower extremities Neuro: non-focal, moving all extremities Psych: cooperative, euthymic mood - Labs CBC & Chem 7: 11/04/21 05:32 11/04/21 05:32 Labs: Abnormal Lab Results - Last 24 Hours (Table) 11/02/21 11/03/21 11/03/21 Range/Units 10: 15:38 15:38 WBC 1.0 L* (3.8-10.6) k/uL RBC 3.25 L (3.80-5.40) m/uL Hgb 6.6 L* (11.4-16.0) gm/dL Hct 27.6 L (34.0-46.0) % Plt Count 13 L* (150-450) k/uL Neutrophils # 0.6 L (1.3-7.7) k/uL Neutrophils # (Manual) (1.3-7.7) k/uL Lymphocytes # 0.1 L (1.0-4.8) k/uL Lymphocytes # (Manual) (1.0-4.8) k/uL Nucleated RBCs (0-0) /100 WBC Glucose 150 H (74-99) mg/dL Conjugated Bilirubin (0.20-0.40) mg/dL Total Protein 6.1 L (6.3-8.2) g/dL Albumin (3.8-4.9) g/dL Crossmatch See Detail 11/04/21 11/04/21 Range/Units 05:32 05:32 WBC 1.3 L* (3.8-10.6) k/uL RBC 2.16 L (3.80-5.40) m/uL Hgb 6.7 L* (11.4-16.0) gm/dL Hct 18.5 L* (34.0-46.0) % Plt Count 22 L D (150-450) k/uL Neutrophils # (1.3-7.7) k/uL Neutrophils # (Manual) 0.60 L (1.3-7.7) k/uL Lymphocytes # (1.0-4.8) k/uL Lymphocytes # (Manual) 0.18 L (1.0-4.8) k/uL Nucleated RBCs 4 H (0-0) /100 WBC Glucose (74-99) mg/dL Conjugated Bilirubin <0.20 L (0.20-0.40) mg/dL Total Protein 5.5 L (6.3-8.2) g/dL Albumin 3.4 L (3.8-4.9) g/dL Crossmatch Assessment and Plan Assessment: Neutropenic fevers Acute myelogenous leukemia Pancytopenia, chemo induced - Covid negative earlier today - Viral studies including influenza A/B, RSV pending - Fungitell pending - BCx no growth today - UA negative for infection - CXR negative - ID, Heme/onc recs appreciated - Continue with cefepime, daptomycin History of Paroxysmal A fib with RVR, currently in normal sinus rhythm Moderate to severe MR - tele - patient is on metoprolol 25mg PO BID - not on AC due to pancytopenia - outpatient cardiology f/u for MR Patient is a full code enoxaparin for DVT PPx was considered, but deferred due to low platelets
[2021-11-04] MEDS: ACETAMINOPHEN TAB 325 MG TAB PO PRN ×2 (12:13→20:07)
--- NOTE | 2021-11-04 12:58 | P.PN ---
Subjective Progress Note Date: 11/04/21 The patient did have more significant fever spikes or night, up to 102. Fever pattern has been overall better since about 1 AM. She denies any chills, or other localizing symptoms. appetite is fair. No obvious bleeding. Objective - Vital Signs Vital signs: Vital Signs Temp 100.8 F H 11/04/21 12:49 Pulse 89 11/04/21 12:49 Resp 16 11/04/21 12:49 BP 109/70 11/04/21 12:49 Pulse Ox 94 L 11/04/21 12:49 Intake & Output 11/03/21 11/04/21 11/04/21 18:59 06:59 18:59 Intake Total 100 2837 0 Balance 100 2837 0 Weight 81.647 kg 81.647 kg Intake: Intake, IV Titration 100 1650 Amount Cefepime 2 gm In Sodium 100 100 Chloride 0.9% 100 ml @ 200 mls/hr IVPB ONCE ONE Rx#:[id number] DAPTOmycin 500 mg In 50 Sodium Chloride 0.9% 50 ml @ 100 mls/hr IVPB Q24H [facility] Rx#:[id number] Sodium Chloride 0.9% 1, 1500 000 ml @ 150 mls/hr IV . Q6H40M [facility] Rx#:[id number] Oral 600 Blood Product 0 587 0 Platelet Pheresis Pas 277 Psoralen Unit [id number] Rc Irr As1 Unit 0 [id number] Rc Irr As1 Unit 0 310 [id number] Other: Voiding Method Toilet Toilet # Voids 5 - Constitutional General appearance: Present: no acute distress - EENT Eyes: Present: EOMI ENT: Present: hearing grossly normal, normal oropharynx - Respiratory Respiratory: bilateral: CTA - Cardiovascular Rhythm: regular Heart sounds: normal: S1, S2 - Gastrointestinal General gastrointestinal: Present: normal bowel sounds, soft - Integumentary Integumentary: Present: normal - Neurologic Neurologic: Present: CNII-XII intact - Musculoskeletal Musculoskeletal: Present: strength equal bilaterally - Labs CBC & Chem 7: 11/04/21 05:32 11/04/21 05:32 Labs: Abnormal Lab Results - Last 24 Hours (Table) 11/02/21 11/03/21 11/03/21 Range/Units 10: 15:38 15:38 WBC 1.0 L* (3.8-10.6) k/uL RBC 3.25 L (3.80-5.40) m/uL Hgb 6.6 L* (11.4-16.0) gm/dL Hct 27.6 L (34.0-46.0) % Plt Count 13 L* (150-450) k/uL Neutrophils # 0.6 L (1.3-7.7) k/uL Neutrophils # (Manual) (1.3-7.7) k/uL Lymphocytes # 0.1 L (1.0-4.8) k/uL Lymphocytes # (Manual) (1.0-4.8) k/uL Nucleated RBCs (0-0) /100 WBC Glucose 150 H (74-99) mg/dL Conjugated Bilirubin (0.20-0.40) mg/dL Total Protein 6.1 L (6.3-8.2) g/dL Albumin (3.8-4.9) g/dL Crossmatch See Detail 11/04/21 11/04/21 Range/Units 05:32 05:32 WBC 1.3 L* (3.8-10.6) k/uL RBC 2.16 L (3.80-5.40) m/uL Hgb 6.7 L* (11.4-16.0) gm/dL Hct 18.5 L* (34.0-46.0) % Plt Count 22 L D (150-450) k/uL Neutrophils # (1.3-7.7) k/uL Neutrophils # (Manual) 0.60 L (1.3-7.7) k/uL Lymphocytes # (1.0-4.8) k/uL Lymphocytes # (Manual) 0.18 L (1.0-4.8) k/uL Nucleated RBCs 4 H (0-0) /100 WBC Glucose (74-99) mg/dL Conjugated Bilirubin <0.20 L (0.20-0.40) mg/dL Total Protein 5.5 L (6.3-8.2) g/dL Albumin 3.4 L (3.8-4.9) g/dL Crossmatch Assessment and Plan (1) Neutropenic fever Narrative/Plan: The patient continues to have fever spikes, though she does not appear cl inically toxic. Vitals are otherwise stable. Cultures are negative so far. Continue antibiotics. ID following. WBC shows a slight improvement today Current Visit: No Status: Resolved Priority: High Code(s): D70.9 - NEUTROPENIA, UNSPECIFIED; R50.81 - FEVER PRESENTING WITH CONDITIONS CLASSIFIED ELSEWHERE SNOMED Code(s): 319433107 (2) Pancytopenia due to antineoplastic chemotherapy Narrative/Plan: WBC shows mild improvement today as noted. Platelet count has improved to 22,000 after 1 unit platelets. Continue to monitor and transfuse to keep platelets above 10,000, unless there is obvious bleeding. Patient is receiving 1 unit PRBC currently. Hemoglobin was stable at 6.7 was 6.8 yesterday. Continue to monitor. Transfuse to keep hemoglobin greater than 7. Current Visit: No Status: Acute Priority: High Code(s): D61.810 - ANTINEOPLASTIC CHEMOTHERAPY INDUCED PANCYTOPENIA; T45.1X5A - ADVERSE EFFECT OF ANTINEOPLASTIC AND IMMUNOSUP DRUGS, INIT SNOMED Code(s): 735135219812553 (3) AML (acute myeloid leukemia) Narrative/Plan: Status post cycle #2 of consolidation. Awaiting count recovery Current Visit: No Status: Acute Priority: High Code(s): C92.00 - ACUTE MYELOBLASTIC LEUKEMIA, NOT HAVING ACHIEVED REMISSION SNOMED Code(s): 69095999
[2021-11-04] MEDS: DAPTOmycin 500 MG in SODIUM CHLORIDE 0.9% 50 ML IVPB SCH (17:58)
--- NOTE | 2021-11-05 02:00 | PN ---
PROGRESS NOTE DATE OF SERVICE: 11/04/2021 REASON FOR FOLLOWUP: Febrile neutropenia. INTERVAL HISTORY: Patient did spike a fever last night, has one this evening. The patient is hemodynamically stable. The patient denies any URI symptoms. No chest pain, shortness of breath or cough. No nausea, no vomiting. No abdominal pain. No diarrhea. PHYSICAL EXAMINATION: Her blood pressure is 147/76, pulse of 91, temperature of 100.1, T-max is 102, she is 100% on room air. General description is a middle-aged female up in the bed in no distress. Respiratory system: Unlabored breathing, clear to auscultation anteriorly. Heart S1, S2. Regular rate and rhythm. Abdomen soft, no tenderness. Extremities: No edema of the feet. LABS: Hemoglobin is 6.7, white count 1.3, creatinine 0.8. Urine is negative. Blood culture has been negative so far. DIAGNOSTIC IMPRESSION AND PLAN: Patient with febrile neutropenia, concern for possible PICC line infection. However, the culture has been negative so far. Patient empirically covered with cefepime to continue while waiting for the culture to finalize and monitor clinical course closely. MMODL / IJN: [id number] /
[2021-11-05 06:18] LABS: HCT 23.9 % (34.0-46.0); MCHC 34.5 g/dL (31.0-37.0); Mean Platelet Volume 10.1; RBC 2.75 m/uL (3.80-5.40); RDW 14.1 % (11.5-15.5); WBC 1.6 k/uL (3.8-10.6)
[2021-11-05 06:20] LABS: HGB 8.2 gm/dL (11.4-16.0); Platelet Count 23 k/uL (150-450)
[2021-11-05 06:24] LABS: ALT 21 U/L (4-34); AST 32 U/L (14-36); African American GFR (CKD) >90 (>60 ml/min/1.73 sqM); Albumin/Globulin Ratio 1.1; Alkaline Phosphatase 79 U/L (38-126); Anion Gap 5 mmol/L; Blood Urea Nitrogen 12 mg/dL (7-17); Calcium 8.9 mg/dL (8.4-10.2); Carbon Dioxide 29 mmol/L (22-30); Chloride 105 mmol/L (98-107); Globulin 2.7 g/dL; Glucose 113 mg/dL (74-99); Non-African American GFR(CKD) 84 (>60 ml/min/1.73 sqM); Sodium 139 mmol/L (137-145); Total Bilirubin 0.8 mg/dL (0.2-1.3); Total Protein 5.7 g/dL (6.3-8.2)
[2021-11-05] MEDS: SODIUM CHLORIDE 0.9% 1,000 ML IV SCH ×2 (06:24→18:55)
[2021-11-05] MEDS: CEFEPIME 2 GM in SODIUM CHLORIDE 0.9% 100 ML IVPB SCH ×3 (07:52→23:09)
[2021-11-05] MEDS: PARoxetine 10 MG TAB PO SCH (07:57)
[2021-11-05] MEDS: ACYCLOVIR 200 MG CAP PO SCH ×2 (07:57→21:02)
[2021-11-05] MEDS: NYSTATIN 100,000 UNIT/ML SUSP 500,000 UNIT/5 ML CUP PO SCH ×4 (07:57→21:02)
[2021-11-05] MEDS: prednisoLONE ACETATE 1% OPHTH DROPS 5 ML BTL BOTH EYES SCH ×4 (07:58→21:03)
[2021-11-05] MEDS: METOPROLOL TARTRATE 25 MG TAB PO SCH ×2 (08:54→21:02)
--- NOTE | 2021-11-05 13:06 | P.PN ---
Subjective Progress Note Date: 11/05/21 Patient again hasn't temperature spikes last night, up into the 102 range. No obvious bleeding. She again denies any localizing symptoms. Objective - Vital Signs Vital signs: Vital Signs Temp 99.4 F 11/05/21 12:10 Pulse 84 11/05/21 12:10 Resp 16 11/05/21 12:10 BP 117/79 11/05/21 12:10 Pulse Ox 96 11/05/21 12:10 Intake & Output 11/04/21 11/05/21 11/05/21 18:59 06:59 18:59 Intake Total 1510 2100 Balance 1510 2100 Weight 81.647 kg Intake: Intake, IV Titration 1200 1300 Amount Cefepime 2 gm In Sodium 100 Chloride 0.9% 100 ml @ 25 mls/hr IVPB Q8HR [facility] Rx# :[id number] Sodium Chloride 0.9% 1, 1200 1200 000 ml @ 100 mls/hr IV . Q10H [facility] Rx#:[id number] Oral 800 Blood Product 310 Rc Irr As1 Unit 310 [id number] Other: Voiding Method Toilet Toilet Toilet # Voids 3 3 - Constitutional General appearance: Present: no acute distress - EENT Eyes: Present: EOMI ENT: Present: hearing grossly normal, normal oropharynx - Respiratory Respiratory: bilateral: CTA - Cardiovascular Rhythm: regular Heart sounds: normal: S1, S2 - Gastrointestinal General gastrointestinal: Present: normal bowel sounds, soft - Integumentary Integumentary: Present: normal - Neurologic Neurologic: Present: CNII-XII intact - Musculoskeletal Musculoskeletal: Present: generalized weakness, strength equal bilaterally - Psychiatric Psychiatric: Present: A&O x's 3, appropriate affect - Labs CBC & Chem 7: 11/05/21 03:28 11/05/21 03:28 Labs: Abnormal Lab Results - Last 24 Hours (Table) 11/02/21 11/05/21 11/05/21 Range/Units 10: 03:28 03:28 WBC 1.6 L (3.8-10.6) k/uL RBC 2.75 L (3.80-5.40) m/uL Hgb 8.2 L D (11.4-16.0) gm/dL Hct 23.9 L (34.0-46.0) % Plt Count 23 L (150-450) k/uL Glucose 113 H (74-99) mg/dL Total Protein 5.7 L (6.3-8.2) g/dL Albumin 3.0 L (3.5-5.0) g/dL Crossmatch See Detail Microbiology - Last 24 Hours (Table) 11/03/21 16:03 Blood Culture - Preliminary Blood No Growth after 24 hours 11/03/21 15:38 Blood Culture - Preliminary Blood No Growth after 24 hours Assessment and Plan (1) Neutropenic fever Narrative/Plan: The patient continues to have intermittent fever spikes. Cultures are negative so far. Continue broad-spectrum antibiotics. Her WBC continues to show slow but persistent a port trend and was 1.6 today. In case of infection, typically we would expect fever to improve once the WBC recovers. Similarly fever due to cytokine release from impending count recovery would also improve in the same timeline. Current Visit: No Status: Resolved Priority: High Code(s): D70.9 - NEUTROPENIA, UNSPECIFIED; R50.81 - FEVER PRESENTING WITH CONDITIONS CLASSIFIED ELSEWHERE SNOMED Code(s): 429208053 (2) Pancytopenia due to antineoplastic chemotherapy Narrative/Plan: The patient responded well to transfusion, with hemoglobin improved into the 8 range. Stated counts are stable in the 20+ range. Continue to monitor and transfuse to keep hemoglobin greater than 7 and platelets greater than 10,000 on pressors evidence of active bleeding. Current Visit: No Status: Acute Priority: High Code(s): D61.810 - ANTINEOPLASTIC CHEMOTHERAPY INDUCED PANCYTOPENIA; T45.1X5A - ADVERSE EFFECT OF ANTINEOPLASTIC AND IMMUNOSUP DRUGS, INIT SNOMED Code(s): 210075955129768 (3) AML (acute myeloid leukemia) Narrative/Plan: The patient has completed Rydapt for cycle #2 of consolidation. Awaiting count recovery. Current Visit: No Status: Acute Priority: High Code(s): C92.00 - ACUTE MYE LOBLASTIC LEUKEMIA, NOT HAVING ACHIEVED REMISSION SNOMED Code(s): 52551576
--- NOTE | 2021-11-05 14:32 | P.PN ---
Subjective Progress Note Date: 11/05/21 Patient spiking fevers again up to 102. No signs of infection, cultures all negative. Pending fungitell test however, invasive fungal disease is unlikely. Patient's white blood cell count steadily improving. That was stable. Hemoglobin is stable after her 1 unit of packed blood cell transfusion. Objective - Vital Signs Vital signs: Vital Signs Temp 99.4 F 11/05/21 12:10 Pulse 84 11/05/21 12:10 Resp 16 11/05/21 12:10 BP 117/79 11/05/21 12:10 Pulse Ox 96 11/05/21 12:10 Intake & Output 11/04/21 11/05/21 11/05/21 18:59 06:59 18:59 Intake Total 1510 2100 Balance 1510 2100 Weight 81.647 kg Intake: Intake, IV Titration 1200 1300 Amount Cefepime 2 gm In Sodium 100 Chloride 0.9% 100 ml @ 25 mls/hr IVPB Q8HR [facility] Rx# :[id number] Sodium Chloride 0.9% 1, 1200 1200 000 ml @ 100 mls/hr IV . Q10H [facility] Rx#:[id number] Oral 800 Blood Product 310 Rc Irr As1 Unit 310 [id number] Other: Voiding Method Toilet Toilet Toilet # Voids 3 3 - Exam Gen: awake, alert HEENT: normocephalic, atraumatic, good hearing acuity, moist mucous membranes Resp: good air exchange, breathing comfortably with no accessory muscle use, clear to auscultation bilaterally CVS: good distal perfusion x 4, regular rate and rhythm, blowing systolic murmur GI: soft, NTTP, ND : no SPT, no CVAT, putnam catheter not present MSK: no pitting edema, no clubbing, bilateral petechia and lower extremities Neuro: non-focal, moving all extremities Psych: cooperative, euthymic mood - Labs CBC & Chem 7: 11/05/21 03:28 11/05/21 03:28 Labs: Abnormal Lab Results - Last 24 Hours (Table) 11/02/21 11/05/21 11/05/21 Range/Units 10:21 03:28 03:28 WBC 1.6 L (3.8-10.6) k/uL RBC 2.75 L (3.80-5.40) m/uL Hgb 8.2 L D (11.4-16.0) gm/dL Hct 23.9 L (34.0-46.0) % Plt Count 23 L (150-450) k/uL Glucose 113 H (74-99) mg/dL Total Protein 5.7 L (6.3-8.2) g/dL Albumin 3.0 L (3.5-5.0) g/dL Crossmatch See Detail Microbiology - Last 24 Hours (Table) 11/03/21 16:03 Blood Culture - Preliminary Blood No Growth after 24 hours 11/03/21 15:38 Blood Culture - Preliminary Blood No Growth after 24 hours Assessment and Plan Assessment: Neutropenic fevers Acute myelogenous leukemia Pancytopenia, chemo induced - Covid negative earlier today - Viral studies including influenza A/B, RSV negative - Fungitell pending - BCx no growth today - UA negative for infection - CXR negative - ID, Heme/onc recs appreciated - Continue with cefepime, daptomycin for now History of Paroxysmal A fib with RVR, currently in normal sinus rhythm Moderate to severe MR - tele - patient is on metoprolol 25mg PO BID - not on AC due to pancytopenia - outpatient cardiology f/u for MR Patient is a full code enoxaparin for DVT PPx was considered, but deferred due to low platelets
[2021-11-05] MEDS: DAPTOmycin 500 MG in SODIUM CHLORIDE 0.9% 50 ML IVPB SCH (18:32)
[2021-11-05] MEDS: ACETAMINOPHEN TAB 325 MG TAB PO PRN (21:04)
--- NOTE | 2021-11-05 23:52 | PN ---
PROGRESS NOTE DATE OF SERVICE: 11/05/2021 REASON FOR FOLLOWUP: Febrile neutropenia. INTERVAL HISTORY: The patient has been spiking fever; mostly in the evening, though. The patient is hemodynamically stable. The patient denies having any chest pain, shortness of breath or cough. No nausea, no vomiting. No abdominal pain or diarrhea. PHYSICAL EXAMINATION: Her blood pressure is 117/69, pulse of 90, temperature of 100. She is 98% on room air. General description is a middle-aged female lying in bed in no distress. Respiratory system: Unlabored breathing. Clear to auscultation anteriorly. Heart S1, S2. Regular rate and rhythm. Abdomen soft, no tenderness. LABS: Blood culture has been negative so far. White count of 1.6, hemoglobin is 8.2, creatinine 0.77. DIAGNOSTIC IMPRESSION AND PLAN: Patient with febrile neutropenia in this patient who did have extensive workup, so far negative for infectious etiology. Urine was negative. RSV PCR has been negative. Blood culture has been negative. Chest x-ray was negative. We will check a serrano PCR, which has not been done. Continue empiric cefepime and daptomycin. Recheck inflammatory markers with . Continue supportive care. MMODL / IJN: [id number] /
[2021-11-06] MEDS: SODIUM CHLORIDE 0.9% 1,000 ML IV SCH ×3 (02:40→23:56)
[2021-11-06 06:48] LABS: HCT 21.6 % (34.0-46.0); HGB 7.6 gm/dL (11.4-16.0); MCH 30.7 pg (25.0-35.0); MCHC 35.1 g/dL (31.0-37.0); MCV 87.4 fL (80.0-100.0); Mean Platelet Volume 9.6; RBC 2.47 m/uL (3.80-5.40); WBC 1.7 k/uL (3.8-10.6)
[2021-11-06 07:03] LABS: Platelet Count 28 k/uL (150-450)
[2021-11-06] MEDS: CEFEPIME 2 GM in SODIUM CHLORIDE 0.9% 100 ML IVPB SCH ×3 (07:28→23:55)
[2021-11-06] MEDS: ACETAMINOPHEN TAB 325 MG TAB PO PRN ×2 (07:34→16:11)
[2021-11-06 08:35] LABS: Band Neutrophils % 2 %; Lymphocytes # (M) 0.15 k/uL (1.0-4.8); Monocytes # (M) 0.22 k/uL (0-1.0); Neutrophils % (M) 76 %; Nucleated Red Blood Cells 0 /100 WBC (0-0); Total Cells Counted 100
[2021-11-06 09:11] LABS: ALT 23 U/L (8-44); AST 32 U/L (13-35); African American GFR (CKD) 109.1 (60.0-200.0); Albumin 3.7 g/dL (3.8-4.9); Albumin/Globulin Ratio 1.68 (1.60-3.17); Alkaline Phosphatase 91 U/L (41-126); BUN/Creat Ratio 13.57 Ratio (12.00-20.00); Bilirubin, Conjugated <0.20 mg/dL (0.20-0.40); Blood Urea Nitrogen 9.5 mg/dL (9.0-27.0); Carbon Dioxide 26.4 mmol/L (20.0-27.5); Chloride 106 mmol/L (96-109); Globulin 2.2 g/dL (1.6-3.3); Glucose 99 mg/dL (70-110); Non-African American GFR(CKD) 94.2 (60.0-200.0); Potassium 3.7 mmol/L (3.5-5.5); Sodium 143 mmol/L (135-145); Total Protein 5.9 g/dL (6.2-8.2)
[2021-11-06] MEDS: ACYCLOVIR 200 MG CAP PO SCH ×2 (09:29→21:27)
[2021-11-06] MEDS: NYSTATIN 100,000 UNIT/ML SUSP 500,000 UNIT/5 ML CUP PO SCH ×4 (09:29→21:27)
[2021-11-06] MEDS: METOPROLOL TARTRATE 25 MG TAB PO SCH ×2 (09:30→21:27)
[2021-11-06] MEDS: prednisoLONE ACETATE 1% OPHTH DROPS 5 ML BTL BOTH EYES SCH ×4 (09:30→21:27)
[2021-11-06] MEDS: PARoxetine 10 MG TAB PO SCH (09:30)
--- NOTE | 2021-11-06 10:26 | P.PN ---
Subjective Progress Note Date: 11/06/21 Patient spiking fevers again up to 103. No signs of infection, cultures all negative. Pending fungitell test however, invasive fungal disease is unlikely. Patient's white blood cell count steadily improving. PLTs stable. Hemoglobin is stable after her 1 unit of packed blood cell transfusion. Objective - Vital Signs Vital signs: Vital Signs Temp 98.2 F 11/06/21 09:32 Pulse 88 11/06/21 09:32 Resp 18 11/06/21 03:52 BP 121/71 11/06/21 09:32 Pulse Ox 95 11/06/21 09:32 Intake & Output 11/05/21 11/06/21 11/06/21 18:59 06:59 18:59 Intake Total 1900 Balance 1900 Intake: Intake, IV Titration 1300 Amount Cefepime 2 gm In Sodium 100 Chloride 0.9% 100 ml @ 25 mls/hr IVPB Q8HR [facility] Rx# :[id number] Sodium Chloride 0.9% 1, 1200 000 ml @ 100 mls/hr IV . Q10H [facility] Rx#:[id number] Oral 600 Other: Voiding Method Toilet Toilet Toilet # Voids 3 4 - Exam Gen: awake, alert HEENT: normocephalic, atraumatic, good hearing acuity, moist mucous membranes Resp: good air exchange, breathing comfortably with no accessory muscle use, clear to auscultation bilaterally CVS: good distal perfusion x 4, regular rate and rhythm, blowing systolic murmur GI: soft, NTTP, ND : no SPT, no CVAT, putnam catheter not present MSK: no pitting edema, no clubbing, bilateral petechia and lower extremities Neuro: non-focal, moving all extremities Psych: cooperative, euthymic mood - Labs CBC & Chem 7: 11/06/21 06:04 11/06/21 06:04 Labs: Abnormal Lab Results - Last 24 Hours (Table) 11/06/21 11/06/21 11/06/21 Range/Units 06:04 06:04 06:04 WBC 1.7 L (3.8-10.6) k/uL RBC 2.47 L (3.80-5.40) m/uL Hgb 7.6 L (11.4-16.0) gm/dL Hct 21.6 L (34.0-46.0) % Plt Count 28 L (150-450) k/uL Lymphocytes # (Manual) 0.15 L (1.0-4.8) k/uL D-Dimer (<0.60) mg/L FEU Conjugated Bilirubin <0.20 L (0.20-0.40) mg/dL C-Reactive Protein 8.50 H (0.00-0.80) mg/dL Total Protein 5.9 L (6.2-8.2) g/dL Albumin 3.7 L (3.8-4.9) g/dL Procalcitonin 0.24 H (0.02-0.09) ng/mL 11/06/21 Range/Units 06:04 WBC (3.8-10.6) k/uL RBC (3.80-5.40) m/uL Hgb (11.4-16.0) gm/dL Hct (34.0-46.0) % Plt Count (150-450) k/uL Lymphocytes # (Manual) (1.0-4.8) k/uL D-Dimer 1.03 H (<0.60) mg/L FEU Conjugated Bilirubin (0.20-0.40) mg/dL C-Reactive Protein (0.00-0.80) mg/dL Total Protein (6.2-8.2) g/dL Albumin (3.8-4.9) g/dL Procalcitonin (0.02-0.09) ng/mL Microbiology - Last 24 Hours (Table) 11/03/21 16:03 Blood Culture - Preliminary Blood No Growth after 48 hours 11/03/21 15:38 Blood Culture - Preliminary Blood No Growth after 48 hours Assessment and Plan Assessment: Neutropenic fevers Acute myelogenous leukemia Pancytopenia, chemo induced Myeloid Reconstitution Syndrome - Covid negative - Viral studies including influenza A/B, RSV negative - Fungitell pending - BCx no growth today - UA negative for infection - CXR negative - ID, Heme/onc recs appreciated - Continue with cefepime, daptomycin for now, but can likely d/c later today since no localizing signs of infection - Fevers likely secondary to Myeloid reconstitution syndrome, but if she has ongoing fevers, may consider repeat BM Bx in the future to r/o relapse History of Paroxysmal A fib with RVR, currently in normal sinus rhythm Moderate to severe MR - tele - patient is on metoprolol 25mg PO BID - not on AC due to pancytopenia - outpatient cardiology f/u for MR Patient is a full code enoxaparin for DVT PPx was considered, but deferred due to low platelets
[2021-11-06 12:00] VITALS: RESP 16
[2021-11-06] MEDS: DAPTOmycin 500 MG in SODIUM CHLORIDE 0.9% 50 ML IVPB SCH (18:03)
--- NOTE | 2021-11-06 19:29 | P.PN ---
Subjective Progress Note Date: 11/06/21 Principal diagnosis: febrile neutropenia In f/u today pt denies oral irritation, N,V, cough, SOB, abd pain, acute changes in bowel or bladder, no skin lesions, rashes or pain. She is tolerating oral intake, fully ambulatory Objective - Vital Signs Vital signs: Vital Signs Temp 100.5 F H 11/06/21 18:02 Pulse 85 11/06/21 11:19 Resp 16 11/06/21 11:19 BP 107/69 11/06/21 11:19 Pulse Ox 97 11/06/21 11:19 Intake & Output 11/06/21 11/06/21 11/07/21 06:59 18:59 06:59 Intake Total 1900 524 Balance 1900 524 Intake: Intake, IV Titration 1300 50 Amount Cefepime 2 gm In Sodium 100 Chloride 0.9% 100 ml @ 25 mls/hr IVPB Q8HR [facility] Rx# :[id number] DAPTOmycin 500 mg In 50 Sodium Chloride 0.9% 50 ml @ 100 mls/hr IVPB Q24H [facility] Rx#:[id number] Sodium Chloride 0.9% 1, 1200 000 ml @ 100 mls/hr IV . Q10H [facility] Rx#:[id number] Oral 600 474 Other: Voiding Method Toilet Toilet # Voids 4 - Constitutional General appearance: Present: average body habitus, cooperative, no acute distress - EENT Eyes: Present: anicteric sclerae, EOMI ENT: Present: hearing grossly normal, normal oropharynx - Respiratory Respiratory: bilateral: CTA - Cardiovascular Rhythm: regular Heart sounds: normal: S1, S2 Abnormal Heart Sounds: Absent: systolic murmur, diastolic murmur, rub, S3 Gallop, S4 Gallop, click, other - Peripheral edema leg Peripheral Edema: bilateral: None - Gastrointestinal General gastrointestinal: Present: normal bowel sounds, soft. Absent: absent bowel sounds, decreased bowel sounds, distended, hepatomegaly, hyperactive bowel sounds, organomegaly, rigid, scaphoid, splenomegaly, tenderness, umbilical hernia, ventral hernia - Integumentary Integumentary: Present: normal turgor - Neurologic Neurologic: Present: CNII-XII intact - Musculoskeletal Musculoskeletal: Present: strength equal bilaterally - Psychiatric Psychiatric: Present: A&O x's 3, appropriate affect, intact judgment & insight - Labs CBC & Chem 7: 11/06/21 06:04 11/06/21 06:04 Labs: Abnormal Lab Results - Last 24 Hours (Table) 11/06/21 11/06/21 11/06/21 Range/Units 06:04 06:04 06:04 WBC 1.7 L (3.8-10.6) k/uL RBC 2.47 L (3.80-5.40) m/uL Hgb 7.6 L (11.4-16.0) gm/dL Hct 21.6 L (34.0-46.0) % Plt Count 28 L (150-450) k/uL Lymphocytes # (Manual) 0.15 L (1.0-4.8) k/uL D-Dimer (<0.60) mg/L FEU Conjugated Bilirubin <0.20 L (0.20-0.40) mg/dL C-Reactive Protein 8.50 H (0.00-0.80) mg/dL Total Protein 5.9 L (6.2-8.2) g/dL Albumin 3.7 L (3.8-4.9) g/dL Procalcitonin 0.24 H (0.02-0.09) ng/mL 11/06/21 Range/Units 06:04 WBC (3.8-10.6) k/uL RBC (3.80-5.40) m/uL Hgb (11.4-16.0) gm/dL Hct (34.0-46.0) % Plt Count (150-450) k/uL Lymphocytes # (Manual) (1.0-4.8) k/uL D-Dimer 1.03 H (<0.60) mg/L FEU Conjugated Bilirubin (0.20-0.40) mg/dL C-Reactive Protein (0.00-0.80) mg/dL Total Protein (6.2-8.2) g/dL Albumin (3.8-4.9) g/dL Procalcitonin (0.02-0.09) ng/mL Microbiology - Last 24 Hours (Table) 11/03/21 16:03 Blood Culture - Preliminary Blood No Growth after 72 hours 11/03/21 15:38 Blood Culture - Preliminary Blood No Growth after 72 hours Assessment and Plan (1) Neutropenic fever Narrative/Plan: Tmax overnight 102.9F. Pancultures so far neg. She cont on empiric abx. ID following. Pt WBC and ANC increased today, fever may be r/t to count recovery. Pt will cont to be monitored Current Visit: Yes Status: Acute Priority: High Code(s): D70.9 - NEUTROPENIA, UNSPECIFIED; R50.81 - FEVER PRESENTING WITH CONDITIONS CLASSIFIED ELSEWHERE SNOMED Code(s): 803688666 (2) Pancytopenia due to antineoplastic chemotherapy Narrative/Plan: Transfuse irradiated blood products only, conservative transfusions to reduce exposure to blood products Transfuse for Hgb < 7, plt <10,000. No need for GCSF as ANC today is 1.3. Current Visit: Yes Status: Acute Priority: High Code(s): D61.810 - ANTINEOPLASTIC CHEMOTHERAPY INDUCED PANCYTOPENIA; T45.1X5A - ADVERSE EFFECT OF ANTINEOPLASTIC AND IMMUNOSUP DRUGS, INIT SNOMED Code(s): 108999038084808 (3) AML (acute myeloid leukemia) Current Visit: Yes Status: Chronic Priority: High Code(s): C92.00 - ACUTE MYELOBLASTIC LEUKEMIA, NOT HAVING ACHIEVED REMISSION SNOMED Code(s): 15706414
--- NOTE | 2021-11-06 22:35 | PN ---
PROGRESS NOTE DATE OF SERVICE: 11/06/2021 REASON FOR FOLLOWUP: Febrile neutropenia. INTERVAL HISTORY: The patient has been spiking a fever in the evening, not in the morning. The patient overall is feeling better, breathing comfortably. No chest pain, shortness of breath or cough. No nausea, no vomiting. No abdominal pain or diarrhea. PHYSICAL EXAMINATION: Blood pressure 107/69, pulse of 89, temperature 99.7. She is 96% on room air. General description is a middle-aged female lying in bed in no distress. Respiratory system: Unlabored breathing. Clear to auscultation anteriorly. Heart S1, S2. Regular rate and rhythm. Abdomen soft, no tenderness. LABS: Hemoglobin is 7.6, white count 1.7, creatinine 0.7. DIAGNOSTIC IMPRESSION AND PLAN: Patient with febrile neutropenia; possibly may need to consider secondary to underlying syndrome. No obvious infectious source with all the cultures negative. Continue with cefepime and daptomycin while monitoring clinical course closely. Continue supportive care. MMODL / IJN: [id number] /
[2021-11-07 05:04] LABS: HCT 23.4 % (34.0-46.0); HGB 8.1 gm/dL (11.4-16.0); MCH 30.2 pg (25.0-35.0); MCHC 34.5 g/dL (31.0-37.0); MCV 87.5 fL (80.0-100.0); Mean Platelet Volume 9.2; RBC 2.67 m/uL (3.80-5.40); RDW 13.9 % (11.5-15.5); WBC 1.8 k/uL (3.8-10.6)
[2021-11-07 05:06] LABS: Platelet Count 28 k/uL (150-450)
[2021-11-07 06:01] LABS: Band Neutrophils % 1 %; Lymphocytes # (M) 0.18 k/uL (1.0-4.8); Monocytes # (M) 0.22 k/uL (0-1.0); Neutrophils % (M) 77 %; Nucleated Red Blood Cells 0 /100 WBC (0-0); Total Cells Counted 100
[2021-11-07] MEDS: METOPROLOL TARTRATE 25 MG TAB PO SCH (08:47)
[2021-11-07] MEDS: ACYCLOVIR 200 MG CAP PO SCH (08:47)
[2021-11-07] MEDS: CEFEPIME 2 GM in SODIUM CHLORIDE 0.9% 100 ML IVPB SCH ×2 (08:47→16:28)
[2021-11-07] MEDS: NYSTATIN 100,000 UNIT/ML SUSP 500,000 UNIT/5 ML CUP PO SCH ×2 (08:48→13:16)
[2021-11-07] MEDS: PARoxetine 10 MG TAB PO SCH (08:49)
[2021-11-07] MEDS: prednisoLONE ACETATE 1% OPHTH DROPS 5 ML BTL BOTH EYES SCH ×2 (08:50→13:16)
[2021-11-07] MEDS: SODIUM CHLORIDE 0.9% 1,000 ML IV SCH (08:56)
[2021-11-07 11:33] VITALS: BP 114/68; PULSE 81; TEMP 98.7
--- NOTE | 2021-11-07 14:52 | PN ---
PROGRESS NOTE DATE OF SERVICE: 11/07/2021 REASON FOR FOLLOWUP: Febrile neutropenia. INTERVAL HISTORY: Patient overall fever pattern has improved. Temperature is down to 100.5 T-max. The patient is feeling better. Breathing comfortably. Denies having any chest pain, shortness of breath or cough. No nausea, no vomiting. No abdominal pain or diarrhea. PHYSICAL EXAMINATION: Blood pressure 114/60 with a pulse of 81, temperature is 98.7. She is 97% on room air. General description is a middle-aged female up in the bed in no distress. Respiratory system: Unlabored breathing, clear to auscultation anteriorly. Heart S1, S2. Regular rate and rhythm. Abdomen soft. No tenderness. LABS: Hemoglobin 8.4, white count 12.8. Culture remains to be negative. DIAGNOSTIC IMPRESSION AND PLAN: Patient with febrile neutropenia with concern for possible as the patient with no clear focus of infection. May consider oral Augmentin and Levaquin, short course on discharge and close outpatient followup. MMODL / IJN: [id number] /
--- NOTE | 2021-11-07 16:04 | P.DS ---
Providers Date of admission: 11/03/21 14:30 Expected date of discharge: 11/07/21 Attending physician: Ar Bailey MD Consults: 11/03/21 14:45 Consult Physician Routine Consulting Provider: Pablito Forte Consult Reason/Comments: Neutropenic Fever, MDS Do you want consulting provider notified?: Yes 11/03/21 14:46 Consult Physician Routine Consulting Provider: Denise Marcano Consult Reason/Comments: Neutropenic Fever Do you want consulting provider notified?: Yes Primary care physician: Pablito Forte Hospital Course: Discharge Diagnosis: Neutropenic fevers secondary to chemotherapy induced pancytopenia Acute myelogenous leukemia Possible myeloid reconstitution syndrome Paroxysmal atrial fibrillation Moderate to severe mitral regurgitation GERD Hospital Course: Patient is a 61-year-old female with a history of acute myelogenous leukemia currently on consolidation therapy with 2 cycles remaining, A. fib, and GERD who presented to the hospital due to fevers and pancytopenia. She last received G- CSF one week ago during her last hospitalization. She was admitted and started on broad-spectrum antibiotics. Infectious disease and hematology oncology were consulted. On arrival her white blood cell count was 1 with an ANC of 600. Due to anemia and thrombocytopenia she was transfused 2 units of packed red blood cells and 1 unit of platelets during her hospital stay. As x-ray showed no acute process. Urinalysis was negative. COVID-19 testing was negative. Flu a and B-. RSV negative. Blood cultures were negative. She continued to have some fevers. These abated with her T-max being 100.5 and her having no fever greater than 100.4 for 22 hours prior to discharge. Her white blood cell count had increased to 1.8 with an ANC of 1400.. She is determined stable for discharge home to complete a course of oral antibiotics. She'll have close follow-up with hematology oncology. She follows with Dr. Quarles in the outpatient setting. She will return to the emergency department if she has recurrent fevers, nausea, vomiting, shortness of breath. Patient seen and examined at bedside. Denies any chest pain, shortness breath, nausea, vomiting, diarrhea. Vital signs reviewed and stable. General: non toxic, no distress, appears at stated age Derm: warm, dry Head: atraumatic, normocephalic, symmetric Eyes: EOMI, no lid lag, anicteric sclera Mouth: no lip lesion, mucus membranes moist Cardiovascular: S1S2 reg, no murmur, positive posterior tibial pulse bilateral, Lungs: CTA bilateral, no rhonchi, no rales , no accessory muscle use Abdominal: soft, nontender to palpation, no guarding, no appreciable organomegaly Ext: no gross muscle atrophy, no edema, no contractures Neuro: CN II-XI grossly intact, no focal neuro deficits Psych: Alert, oriented, appropriate affect A total of 35 minutes of time were spent preparing this complex discharge summary . Plan - Discharge Summary Discharge Rx Participant: No New Discharge Prescriptions: Continue PARoxetine [Paxil] 10 mg PO DAILY Metoprolol Tartrate [Lopressor] 25 mg PO BID Midostaurin [Rydapt] 25 mg PO DIRECTED Nystatin 100,000 Unit/ml Susp [Mycostatin Oral Susp] 4 ml PO QID Levofloxacin [Levaquin] 500 mg PO DAILY 5 Days #5 tab prednisoLONE ACETATE 1% OPHTH [Pred Forte 1%] 1 drops BOTH EYES QID ml Acyclovir 400 mg PO BID #60 tablet Acetaminophen Tab [Tylenol] 650 mg PO Q6HR PRN tab PRN Reason: Fever And/ Or Pain Amoxic-Pot Clav 875-125Mg [Augmentin 875-125] 1 tab PO BID@1200,2100 #10 tab Discharge Medication List PARoxetine [Paxil] 10 mg PO DAILY 12/17/18 [History] Metoprolol Tartrate [Lopressor] 25 mg PO BID 10/13/21 [History] Midostaurin [Rydapt] 25 mg PO DIRECTED 10/13/21 [History] Acyclovir 400 mg PO BID #60 tablet 10/18/21 [Rx] prednisoLONE ACETATE 1% OPHTH [Pred Forte 1%] 1 drops BOTH EYES QID ml 10/18/21 [Rx] Acetaminophen Tab [Tylenol] 650 mg PO Q6HR PRN tab 10/28/21 [Rx] Nystatin 100,000 Unit/ml Susp [Mycostatin Oral Susp] 4 ml PO QID 11/03/21 [History] Amoxic-Pot Clav 875-125Mg [Augmentin 875-125] 1 tab PO BID@1200,2100 #10 tab 11/07/21 [Rx] Levofloxacin [Levaquin] 500 mg PO DAILY 5 Days #5 tab 11/07/21 [Rx] Follow up Appointment(s)/Referral(s): Vesna Mao NPC [Nurse Practitioner] - 11/13/21 9:00 am (for CBC) Activity/Diet/Wound Care/Special Instructions: Activity: as tolerated Diet: regular Special Instructions: Monitor for recurrent fevers above 100.4 and alert oncology if occurs monitor for shortness of breath, nausea, diarrhea and contact oncology if needed Augment, Levaquin, and Nystatin for 5 additional days. on Saturday11/13/[address] Quarles office for CBC Discharge Disposition: HOME SELF-CARE
--- NOTE | 2021-11-07 17:06 | P.PN ---
Subjective Progress Note Date: 11/07/21 The patient feels well symptomatically. She had a MAXIMUM TEMPERATURE of 100.5 overnight. She denied any chills or shakes. No unusual bleeding or bruising. She again denied any localizing signs for infection. Appetite is fairly normal. Objective - Vital Signs Vital signs: Vital Signs Temp 98.7 F 11/07/21 11:14 Pulse 81 11/07/21 11:14 Resp 16 11/07/21 11:14 BP 114/68 11/07/21 11:14 Pulse Ox 97 11/07/21 15:15 Intake & Output 11/06/21 11/07/21 11/07/21 18:59 06:59 18:59 Intake Total 524 500 Balance 524 500 Weight 81.647 kg Intake: Intake, IV Titration 50 500 Amount Cefepime 2 gm In Sodium 100 Chloride 0.9% 100 ml @ 25 mls/hr IVPB Q8HR [facility] Rx# :[id number] DAPTOmycin 500 mg In 50 Sodium Chloride 0.9% 50 ml @ 100 mls/hr IVPB Q24H [facility] Rx#:[id number] Sodium Chloride 0.9% 1, 400 000 ml @ 100 mls/hr IV . Q10H [facility] Rx#:[id number] Oral 474 Other: Voiding Method Toilet Toilet Toilet - Constitutional General appearance: Present: no acute distress - EENT Eyes: Present: EOMI ENT: Present: hearing grossly normal, normal oropharynx - Respiratory Respiratory: bilateral: CTA - Cardiovascular Rhythm: regular Heart sounds: normal: S1, S2 - Gastrointestinal General gastrointestinal: Present: normal bowel sounds, soft - Integumentary Integumentary: Present: normal - Neurologic Neurologic: Present: CNII-XII intact - Musculoskeletal Musculoskeletal: Present: strength equal bilaterally - Psychiatric Psychiatric: Present: appropriate affect - Labs CBC & Chem 7: 11/07/21 04:21 11/06/21 06:04 Labs: Abnormal Lab Results - Last 24 Hours (Table) 11/07/21 Range/Units 04:21 WBC 1.8 L (3.8-10.6) k/uL RBC 2.67 L (3.80-5.40) m/uL Hgb 8.1 L (11.4-16.0) gm/dL Hct 23.4 L (34.0-46.0) % Plt Count 28 L (150-450) k/uL Lymphocytes # (Manual) 0.18 L (1.0-4.8) k/uL Microbiology - Last 24 Hours (Table) 11/06/21 06:04 Blood Culture - Preliminary Blood No Growth after 24 hours 11/03/21 16:03 Blood Culture - Preliminary Blood No Growth after 72 hours 11/03/21 15:38 Blood Culture - Preliminary Blood No Growth after 72 hours Assessment and Plan (1) Pancytopenia due to antineoplastic chemotherapy Narrative/Plan: WBC continues to show slow but steady improvement. ANC has now been greater than 1000 for the past 2 days with slow increase. No abnormality noted on WBC differential. Hemoglobin has been stable in the 8 range while platelets are increasing slowly. There were 28,000 today. - Therefore there is no need for transfusion today. Continue to monitor inpatient, and outpatient with expectation of ongoing recovery. Current Visit: Yes Status: Acute Priority: High Code(s): D61.810 - ANTINEOPLASTIC CHEMOTHERAPY INDUCED PANCYTOPENIA; T45.1X5A - ADVERSE EFFECT OF ANTINEOPLASTIC AND IMMUNOSUP DRUGS, INIT SNOMED Code(s): 944845659974775 (2) AML (acute myeloid leukemia) Narrative/Plan: Outpatient follow-up. Plans for any further consolidation chemotherapy will have to await further improvement in counts. Current Visit: Yes Status: Chronic Priority: High Code(s): C92.00 - ACUTE MYELOBLASTIC LEUKEMIA, NOT HAVING ACHIEVED REMISSION SNOMED Code(s): 27270009 Plan: Case discussed in detail with the admitting service. Cultures have remained negative. Fever pattern is improved with maximum temperature of 100.5 last night. ANC is now greater than 1000. - Therefore from our standpoint it is reasonable to consider discharging the patient as long as ID is comfortable, with outpatient antibiotics. ID will be contacted to discuss the same. One of the patient's PICC line Portz is not working. As long as there are no concerns from ID regarding the PICC line, it was recommended that it be left in for now. This can be removed (Exchanged if needed) once patient counts are greater than 50,000.
== END 2021-11-07 17:50 | disposition home or self-care (01) | DRG 809 ==
LOC: 5NMEDONC 14:30
PROVIDERS: ADMIT Internal Medicine; ATTEND Internal Medicine
DX: D70.9 Neutropenia, unspecified (principal); C92.00 Acute myeloblastic leukemia, not having achieved remission; D61.810 Antineoplastic chemotherapy induced pancytopenia; D53.9 Nutritional anemia, unspecified; F41.9 Anxiety disorder, unspecified; H91.90 Unspecified hearing loss, unspecified ear; I34.0 Nonrheumatic mitral (valve) insufficiency; I48.0 Paroxysmal atrial fibrillation; K21.9 Gastro-esophageal reflux disease without esophagitis; R50.81 Fever presenting with conditions classified elsewhere; T45.1X5A Adverse effect of antineoplastic and immunosuppressive drugs, initial encounter; Z20.822 Contact with and (suspected) exposure to COVID-19; Z77.21 Contact with and (suspected) exposure to potentially hazardous body fluids; Z79.899 Other long term (current) drug therapy; Z82.49 Family history of ischemic heart disease and other diseases of the circulatory system; Z88.1 Allergy status to other antibiotic agents; M19.90 Unspecified osteoarthritis, unspecified site; R74.02 Elevation of levels of lactic acid dehydrogenase [LDH]; Y92.9 Unspecified place or not applicable
CPT/HCPCS: 71045; 80053; 80076; 81003; 83605; 83615; 83735; 84145; 85025; 85027; 85379; 86140; 86850; 86900; 86901; 86920; 87040; 87449; 87502; 87634; 87635

== ENCOUNTER → 2021-12-01 | Day surgery (SDC) | payer BC ==
[2021-11-29 15:28] VITALS: BMI 30.4
[~2021-12-01] MED LIST changes: -DEXAMETHASONE SOD PHOSPHATE 10 MG/ML 1 ML VIAL IV ONE; -KETOROLAC 30 MG/ML 1 ML VIAL IVP SCH; -LIDOCAINE 1% 20 ML VIAL (10MG/ML) FOR IV START INTRADERMA PRN; +LIDOCAINE 1% INJ 10MG/ML (20 ML MDV) SQ ONE; -METOCLOPRAMIDE 5 MG/ML 2 ML VIAL IVP PRN; -ONDANSETRON 4 MG/2 ML VIAL IVP PRN; -SCOPOLAMINE 1.5MG/72HR PATCH TRANSDERM ONE; -ceFAZolin IN SWFI 2 GM/20 ML SYRINGE IVP ONE
[2021-12-01 10:23] VITALS: BP 125/82; PULSE 80; RESP 16; TEMP 98.5
--- NOTE | 2021-12-01 12:23 | IR ---
EXAMINATION TYPE: IR cvc insert >=5 years DATE OF EXAM: 12/01/2021 COMPARISON: NONE CLINICAL HISTORY: Leukemia Needs long-term intravenous access for there be. PROCEDURE: Hand hygiene obtained with soap and water and alcohol-based hand rub. After informed consent, the skin overlying the left basilic vein was localized with ultrasound and no chago to be compressible and patent. An ultrasound image was obtained and submitted on the patient's c martin. The overlying skin was prepped and draped and Lidocaine was used for local anesthesia. A skin binh was made with a scalpel. Access was gained to the vein under ultrasound guidance with a 21 gau ge needle and a 0.018 inch wire was advanced. Access site was dilated with Peel-Away sheath and cath eter tailored to the appropriate length and advanced such that the distal tip is at the cavoatrial ju nction. Spot image was obtained verifying placement. Catheter was fixed to the skin and a sterile d ressing was placed following hemostasis. Catheter was aspirated and flushed with saline. Patient wa s discharged in stable condition without complication. Maximal barrier technique is utilized. Ultras ound image is documented on the chart. Ultrasound used with sterile technique. Fluoro time and fluoroscopic images submitted to document procedure: 9 intraoperative C-arm images, 0 .1 minutes fluoroscopy time IMPRESSION: STATUS POST ULTRASOUND AND FLUOROSCOPIC GUIDED PICC LINE PLACEMENT, READY FOR USE. THIS PROCEDURE WAS PERFORMED BY THE UNDERSIGNED.
== END ==
LOC: CATHCVL 09:56
PROVIDERS: ATTEND Radiology Diagnostic Radiology
DX: C92.A1 Acute myeloid leukemia with multilineage dysplasia, in remission (principal); D61.810 Antineoplastic chemotherapy induced pancytopenia; Z20.822 Contact with and (suspected) exposure to COVID-19; Z98.890 Other specified postprocedural states; Z80.0 Family history of malignant neoplasm of digestive organs; Z86.19 Personal history of other infectious and parasitic diseases; Z79.899 Other long term (current) drug therapy; Z88.1 Allergy status to other antibiotic agents
CPT/HCPCS: 36573; 87635; C1751; C1769; J2001

== ENCOUNTER 2021-12-04 09:05 | Inpatient (IN) | payer BC ==
[~2021-12-04 09:05] MED LIST changes: -LIDOCAINE 1% INJ 10MG/ML (20 ML MDV) SQ ONE; +ONDANSETRON 4 MG/2 ML VIAL IVP PRN; +SALT AND SODA MOUTHWASH 1,000 ML PO PRN
[2021-12-04 10:19] LABS: Anisocytosis Moderate; Basophils % (A) 1 %; Eosinophils # (A) 0.2 k/uL (0-0.7); Eosinophils % (A) 6 %; HCT 35.4 % (34.0-46.0); Lymphocytes # (A) 0.5 k/uL (1.0-4.8); Lymphocytes % (A) 13 %; MCH 33.9 pg (25.0-35.0); MCHC 33.2 g/dL (31.0-37.0); Macrocytosis Marked; Mean Platelet Volume 8.3; Monocytes # (A) 0.5 k/uL (0-1.0); Monocytes % (A) 14 %; Neutrophils # (A) 2.3 k/uL (1.3-7.7); Neutrophils % (A) 64 %; RBC 3.46 m/uL (3.80-5.40); RDW 20.6 % (11.5-15.5); WBC 3.6 k/uL (3.8-10.6)
[2021-12-04 10:24] LABS: HGB 11.8 gm/dL (11.4-16.0); MCV 102.1 fL (80.0-100.0); Platelet Count 157 k/uL (150-450)
[2021-12-04 10:25] LABS: ALT 59 U/L (4-34); AST 60 U/L (14-36); African American GFR (CKD) 70 (>60 ml/min/1.73 sqM); Albumin 3.9 g/dL (3.5-5.0); Albumin/Globulin Ratio 1.4; Alkaline Phosphatase 75 U/L (38-126); Anion Gap 5 mmol/L; Blood Urea Nitrogen 18 mg/dL (7-17); Calcium 9.4 mg/dL (8.4-10.2); Carbon Dioxide 30 mmol/L (22-30); Chloride 104 mmol/L (98-107); Globulin 2.8 g/dL; Glucose 116 mg/dL (74-99); Non-African American GFR(CKD) 61 (>60 ml/min/1.73 sqM); Phosphorus 5.3 mg/dL (2.5-4.5); Potassium 4.1 mmol/L (3.5-5.1); Sodium 139 mmol/L (137-145); Total Bilirubin 0.7 mg/dL (0.2-1.3); Total Protein 6.7 g/dL (6.3-8.2); Uric Acid 5.9 mg/dL (3.7-7.4)
[2021-12-04] MEDS: prednisoLONE ACETATE 1% OPHTH DROPS 5 ML BTL BOTH EYES SCH ×4 (12:01→20:27)
[2021-12-04] MEDS: FAMOTIDINE 20 MG/2 ML VIAL IV SCH (12:01)
[2021-12-04] MEDS: ONDANSETRON 16 MG in SODIUM CHLORIDE 0.9% 50 ML IVPB SCH (12:01)
[2021-12-04] MEDS: DEXAMETHASONE SOD PHOSPHATE 10 MG/ML 1 ML VIAL IV SCH (12:01)
[2021-12-04] MEDS: SODIUM CHLORIDE 0.9% 1,000 ML IV SCH ×2 (12:02→17:26)
[2021-12-04] MEDS ORDERED: NYSTATIN 100,000 UNIT/ML SUSP 500,000 UNIT/5 ML CUP PO PRN (12:05)
[2021-12-04] MEDS ORDERED: prednisoLONE ACETATE 1% OPHTH DROPS 5 ML BTL BOTH EYES PRN (12:05)
[2021-12-04] MEDS ORDERED: ACETAMINOPHEN TAB 325 MG TAB PO PRN (12:05)
--- NOTE | 2021-12-04 12:16 | P.CONS ---
History of Present Illness - Reason for Consult Consult date: 12/04/21 - Chief Complaint here for chemo - History of Present Illness 61-year-old woman with medical history of AML on chemo, paroxysmal atrial fibrillation, moderate to severe MR presented for chemotherapy. She is admitted to oncology service. She was recently discharged last month after she had neutropenic fever. Currently patient denies any complaints, no fevers or chills, no nausea, vomiting, chest pain, palpitations, cough, dyspnea, syncope, presyncope, abdominal pain, diarrhea, constipation, new rashes, numbness/weakness of her extremities. Review of Systems Complete review of system performed, pertinent positives per HPI, otherwise negative Past Medical History Past Medical History: Atrial Fibrillation, Cancer, GERD/Reflux, Hearing Disorder / Deafness, Osteoarthritis (OA), Pneumonia, Syncope Additional Past Medical History / Comment(s): recent adm. to [facility] with neutropenic fever, pancytopenia. Other hx: AML, chemotherapy, neutropenia, pneumonia/vented, paroxysmal Afib, syncope/cause unknown, occasional R ear tinnitis, diverticular disease/benign polyp, UTI. History of Any Multi-Drug Resistant Organisms: None Reported Past Surgical History: Breast Surgery, Orthopedic Surgery Additional Past Surgical History / Comment(s): BMA, bronchoscopy, colonoscopy, bilateral breast biopsies, arthroscopy left and right knee, PICC lines Past Anesthesia/Blood Transfusion Reactions: No Reported Reaction Additional Past Anesthesia/Blood Transfusion Reaction / Comm: Pt has received blood without reaction. Past Psychological History: Anxiety Additional Psychological History / Comment(s): Pt resides with her spouse who is very helpful. She uses a walker occasionally. She has not driven since diagnosis/spouse drives. Smoking Status: Never smoker Past Alcohol Use History: None Reported Past Drug Use History: None Reported - Past Family History Father Family Medical History: Cancer Mother Family Medical History: Coronary Artery Disease (CAD), Dementia Additional Family Medical History / Comment(s): Mother had coronary stents. She is from dementia. Medications and Allergies Home Medications Medication Instructions Recorded Confirmed Type PARoxetine [Paxil] 10 mg PO DAILY 12/17/18 12/04/21 History Metoprolol Tartrate [Lopressor] 25 mg PO BID 10/13/21 12/04/21 History Midostaurin [Rydapt] 25 mg PO DIRECTED PRN 10/13/21 12/04/21 History Acyclovir 400 mg PO BID #60 tablet 10/18/21 12/04/21 Rx Acetaminophen Tab [Tylenol] 650 mg PO Q6HR PRN tab 10/28/21 12/04/21 Rx Nystatin 100,000 Unit/ml Susp 4 ml PO QID PRN 11/03/21 12/04/21 History [Mycostatin Oral Susp] prednisoLONE ACETATE 1% OPHTH 1 drops BOTH EYES QID PRN 11/29/21 12/04/21 History [Pred Forte 1%] Allergies Allergy/AdvReac Type Severity Reaction Status Date / Time vancomycin Allergy Rash/Hives Verified 12/04/21 10:17 Physical Exam Vitals: Vital Signs Temp Pulse Resp BP Pulse Ox 12/04/21 11:14 98.5 F 54 L 16 117/54 97 12/04/21 09:35 98.3 F 65 16 108/72 98 Intake and Output 12/03/21 12/04/21 12/04/21 22:59 06:59 14:59 Other: Weight 81.647 kg Constitutional: No acute distress, conversant, pleasant Eyes:Anicteric sclerae, moist conjunctiva, no lid-lag, PERRLA, ENMT: Oropharynx clear, no erythema, exudates Neck: Supple, FROM, no masses, or JVD, No carotid bruits, No thyromegaly Lungs: Clear to auscultation, Clear to percussion, Normal respiratory effort, no accessory muscle use Cardiovascular: Heart regular in rate and rhythm, No murmurs, gallops, or rubs, No peripheral edema Abdominal: Soft, Nontender, no guarding, rebound or rigidity, Normoactive bowel sounds, No hepatomegaly, No splenomegaly, No palpable mass Skin: Normal temperature, tone, texture, turgor, no induration, No subcutaneous nodules, No rash, lesions, No ulcers Extremities: No digital cyanosis, No clubbing, Pedal pulses intact and symmetrical, Radial pulses intact and symmetrical, No calf tenderness Psychiatric: Alert and oriented to person, place and time, appropriate affect, intact judgement Neuro: Muscles Strength 5/5 in all 4 extremities, Sensation to light touch grossly present throughout, Cranial nerves II-XII grossly intact, no focal sensory deficits Results CBC & Chem 7: 12/04/21 09:55 12/04/21 09:55 Labs: Abnormal Lab Results - Last 24 Hours (Table) 12/04/21 12/04/21 Range/Units 09:55 09:55 WBC 3.6 L (3.8-10.6) k/uL RBC 3.46 L (3.80-5.40) m/uL MCV 102.1 H D (80.0-100.0) fL RDW 20.6 H (11.5-15.5) % Lymphocytes # 0.5 L (1.0-4.8) k/uL Macrocytosis Marked A BUN 18 H (7-17) mg/dL Glucose 116 H (74-99) mg/dL Phosphorus 5.3 H (2.5-4.5) mg/dL AST 60 H (14-36) U/L ALT 59 H (4-34) U/L Assessment and Plan Plan: AML Chemo per oncology service Paroxysmal atrial fibrillation, Depression GERD/Reflux Osteoarthritis (OA) All stable resume meds Disposition: home Anticipated discharge: after chemo is complete
[2021-12-04] MEDS: ACYCLOVIR 200 MG CAP PO SCH ×3 (13:13→20:26)
[2021-12-04] MEDS: SALT AND SODA MOUTHWASH 1,000 ML PO SCH ×2 (13:13→17:24)
[2021-12-04] MEDS: SODIUM CHLORIDE 0.9% IV SCH (13:16)
[2021-12-04] MEDS: CYTARABINE IV SCH (13:16)
--- NOTE | 2021-12-04 13:32 | P.HPIM ---
History of Present Illness H&P Date: 12/04/21 Chief Complaint: AML, admit for CIVI treatment Mrs. Perrin is a very pleasant 61-year-old female who we saw in end of May 2021 regarding sudden onset macrocytic anemia and thrombocytopenia, her labs had been normal up until 06/07 on routine lab drawn by her PCP. She had fever when seen at her PCP ofc and was sent to ER for garner culture workup, IV antibiotics and evaluation. Patient reported 12lb wt loss, declining energy levels and decreased stamina in the previous few weeks. She was Covid negative. Iron studies significantly elevated (this was prior to transfusion), thyroid studies were normal, LDH elevated 438. MCV 109.7, renal function is normal. Hemoglobin 5.8 on admission, platelet count 38,000. Patient has had no other acute changes in her health, no other complaints. She received her second covid vaccine 04/07/21. She had BM bx and aspirate 06/21/21, AML diagnosis. She was initiated immediately on induction chemo with 7+3 regimen. She required intubation and extensive supportive care and transfusions. She recovered nicely, had BM Bx and asp 07/25 revealing no residual AML, cytogenetics negative. 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 Acheived remission post induction per BMT team in [place]. She was admitted 08/16-08/21/21 for C1 consolidation with HiDAC with oral Rydapt for FLT3 mutation. Admitted for cycle #2 from 10/13-10/18/21. Inpt 11/01/21 with low-grade temp and cytopenias requiring transfusions. Cultures were negative that admission. She was seen in ofc for f/u, has fever 101 at home, in office her temperature was in the 99 range, she was sent for outpatient transfusions where she spiked to 100.8F and was recommended admission 11/03/21. She received empiric abx, cul tures remained neg, DC 11/07. Today she is admitted for cycle #3 of HiDAC. She has no c/o n a 10 point ROS, she is active, appetite is good, fully ambulatory independently. Review of Systems 10 point ROS is neg except as stated in HPI Past Medical History Past Medical History: Atrial Fibrillation, Cancer, GERD/Reflux, Hearing Disorder / Deafness, Osteoarthritis (OA), Pneumonia, Syncope Additional Past Medical History / Comment(s): recent adm. to [facility] with neutropenic fever, pancytopenia. Other hx: AML, chemotherapy, neutropenia, pneumonia/vented, paroxysmal Afib, syncope/cause unknown, occasional R ear tinnitis, diverticular disease/benign polyp, UTI. History of Any Multi-Drug Resistant Organisms: None Reported Past Surgical History: Breast Surgery, Orthopedic Surgery Additional Past Surgical History / Comment(s): BMA, bronchoscopy, colonoscopy, bilateral breast biopsies, arthroscopy left and right knee, PICC lines Past Anesthesia/Blood Transfusion Reactions: No Reported Reaction Additional Past Anesthesia/Blood Transfusion Reaction / Comment(s): Pt has received blood without reaction. Past Psychological History: Anxiety Additional Psychological History / Comment(s): Pt resides with her spouse who is very helpful. She uses a walker occasionally. She has not driven since diagnosis/spouse drives. Smoking Status: Never smoker Past Alcohol Use History: None Reported Past Drug Use History: None Reported - Past Family History Father Family Medical History: Cancer Mother Family Medical History: Coronary Artery Disease (CAD), Dementia Additional Family Medical History / Comment(s): Mother had coronary stents. She is from dementia. Medications and Allergies Home Medications Medication Instructions Recorded Confirmed Type PARoxetine [Paxil] 10 mg PO DAILY 12/17/18 12/04/21 History Metoprolol Tartrate [Lopressor] 25 mg PO BID 10/13/21 12/04/21 History Midostaurin [Rydapt] 25 mg PO DIRECTED PRN 10/13/21 12/04/21 History Acyclovir 400 mg PO BID #60 tablet 10/18/21 12/04/21 Rx Acetaminophen Tab [Tylenol] 650 mg PO Q6HR PRN tab 10/28/21 12/04/21 Rx Nystatin 100,000 Unit/ml Susp 4 ml PO QID PRN 11/03/21 12/04/21 History [Mycostatin Oral Susp] prednisoLONE ACETATE 1% OPHTH 1 drops BOTH EYES QID PRN 11/29/21 12/04/21 History [Pred Forte 1%] Allergies Allergy/AdvReac Type Severity Reaction Status Date / Time vancomycin Allergy Rash/Hives Verified 12/04/21 10:17 Physical Exam Vitals: Vital Signs Temp Pulse Resp BP Pulse Ox 12/04/21 11:14 98.5 F 54 L 16 117/54 97 12/04/21 09:35 98.3 F 65 16 108/72 98 Intake and Output 12/03/21 12/04/21 12/04/21 22:59 06:59 14:59 Other: Weight 81.647 kg - Constitutional General appearance: average body habitus, cooperative, no acute distress - EENT Eyes: anicteric sclerae, EOMI ENT: hearing grossly normal, normal oropharynx - Neck Neck: no lymphadenopathy - Respiratory Respiratory: bilateral: CTA - Cardiovascular Rhythm: regular Heart sounds: normal: S1, S2 Abnormal Heart Sounds: no systolic murmur, no diastolic murmur, no rub, no S3 Gallop, no S4 Gallop, no click, no other leg Peripheral Edema: bilateral: None - Gastrointestinal General gastrointestinal: no absent bowel sounds, no decreased bowel sounds, no distended, no hepatomegaly, no hyperactive bowel sounds, normal bowel sounds, no organomegaly, no rigid, no scaphoid, soft, no splenomegaly, no tenderness, no umbilical hernia, no ventral hernia - Integumentary Integumentary: normal, normal turgor - Neurologic Neurologic: CNII-XII intact - Musculoskeletal Musculoskeletal: strength equal bilaterally - Psychiatric Psychiatric: A&O x's 3, appropriate affect, intact judgment & insight Results CBC & Chem 7: 12/04/21 09:55 12/04/21 09:55 Labs: Abnormal Lab Results - Last 24 Hours (Table) 12/04/21 12/04/21 Range/Units 09:55 09:55 WBC 3.6 L (3.8-10.6) k/uL RBC 3.46 L (3.80-5.40) m/uL MCV 102.1 H D (80.0-100.0) fL RDW 20.6 H (11.5-15.5) % Lymphocytes # 0.5 L (1.0-4.8) k/uL Macrocytosis Marked A BUN 18 H (7-17) mg/dL Glucose 116 H (74-99) mg/dL Phosphorus 5.3 H (2.5-4.5) mg/dL AST 60 H (14-36) U/L ALT 59 H (4-34) U/L Thrombosis Risk Factor Assmnt - DVT/VTE Prophylaxis DVT/VTE Prophylaxis: Pharmacologic Prophylaxis ordered - Choose All That Apply Each Factor Represents 1 point: Age 41-60 years Other Risk Factors: Yes Each Risk Factor Represents 2 Points: Malignancy Other congenital or acquired thrombophilia - If yes, enter type in comment: No Thrombosis Risk Factor Assessment Total Risk Factor Score: 3 Thrombosis Risk Factor Assessment Level: Moderate Risk Assessment and Plan (1) AML (acute myeloid leukemia) Narrative/Plan: IM consulted for medical management Chemo orders reviewed Supportive meds ordered Encourage ambulation GI/DVT prophylaxis [place] fluids Labs daily F/U daily Current Visit: Yes Status: Chronic Priority: High Code(s): C92.00 - ACUTE MYELOBLASTIC LEUKEMIA, NOT HAVING ACHIEVED REMISSION SNOMED Code(s): 07987787 Plan: attests: I have performed H&P, developed impression and plan of care. Discussed with dictator, agree with dictation, documented as a scribe.
[2021-12-04] MEDS: FAMOTIDINE 20 MG TAB PO SCH (20:25)
[2021-12-04] MEDS: METOPROLOL TARTRATE 25 MG TAB PO SCH (20:26)
[2021-12-05] MEDS: CYTARABINE IV SCH (01:19)
[2021-12-05] MEDS: SODIUM CHLORIDE 0.9% IV SCH (01:19)
[2021-12-05] MEDS: SODIUM CHLORIDE 0.9% 1,000 ML IV SCH ×2 (04:42→17:52)
[2021-12-05 06:30] LABS: Anisocytosis Slight; Basophils % (A) 0 %; Eosinophils % (A) 0 %; HCT 32.2 % (34.0-46.0); HGB 10.8 gm/dL (11.4-16.0); Hypochromasia Slight; Lymphocytes # (A) 0.2 k/uL (1.0-4.8); Lymphocytes % (A) 3 %; MCH 34.1 pg (25.0-35.0); MCHC 33.5 g/dL (31.0-37.0); Macrocytosis Moderate; Mean Platelet Volume 8.5; Monocytes # (A) 0.5 k/uL (0-1.0); Monocytes % (A) 6 %; Neutrophils # (A) 6.6 k/uL (1.3-7.7); Neutrophils % (A) 91 %; Platelet Count 134 k/uL (150-450); RBC 3.16 m/uL (3.80-5.40); RDW 19.5 % (11.5-15.5); WBC 7.3 k/uL (3.8-10.6)
[2021-12-05 06:45] LABS: ALT 47 U/L (4-34); AST 45 U/L (14-36); African American GFR (CKD) >90 (>60 ml/min/1.73 sqM); Albumin 3.4 g/dL (3.5-5.0); Albumin/Globulin Ratio 1.4; Alkaline Phosphatase 68 U/L (38-126); Anion Gap 6 mmol/L; Blood Urea Nitrogen 16 mg/dL (7-17); Calcium 8.8 mg/dL (8.4-10.2); Carbon Dioxide 26 mmol/L (22-30); Chloride 111 mmol/L (98-107); Globulin 2.4 g/dL; Glucose 160 mg/dL (74-99); Non-African American GFR(CKD) 86 (>60 ml/min/1.73 sqM); Phosphorus 3.4 mg/dL (2.5-4.5); Potassium 4.5 mmol/L (3.5-5.1); Sodium 143 mmol/L (137-145); Total Bilirubin 0.5 mg/dL (0.2-1.3); Total Protein 5.8 g/dL (6.3-8.2); Uric Acid 6.3 mg/dL (3.7-7.4)
[2021-12-05] MEDS: METOPROLOL TARTRATE 25 MG TAB PO SCH ×2 (08:23→22:20)
[2021-12-05] MEDS: ACYCLOVIR 200 MG CAP PO SCH ×2 (08:38→22:20)
[2021-12-05] MEDS: PARoxetine 10 MG TAB PO SCH (08:38)
[2021-12-05] MEDS: prednisoLONE ACETATE 1% OPHTH DROPS 5 ML BTL BOTH EYES SCH ×4 (08:39→22:21)
[2021-12-05] MEDS: SALT AND SODA MOUTHWASH 1,000 ML PO SCH ×3 (08:39→17:53)
[2021-12-05] MEDS: ENOXAPARIN 40 MG/0.4 ML SYRINGE SQ SCH (08:41)
--- NOTE | 2021-12-05 11:24 | P.PN ---
Subjective Progress Note Date: 12/05/21 Hospital course: Patient is a Physical exam: Vital signs reviewed and stable. General: Nontoxic, no distress and appears stated age. Derm: Skin warm and dry, normal coloration for ethnicity. Head: Atraumatic, normocephalic and symmetric. Eyes: EOMs intact, no lid lag, and anicteric sclera Mouth: no lip lesions, mucus membranes moist Cardiovascular: regular rate and rhythm with normal S1S2, no murmur, positive posterior tibial pulses bilaterally, and cap refill < 2 seconds. Lungs: Respirations even, regular, and unlabored on room air. Lungs CTA bilaterally, no rhonchi, no rales, no wheezing, and no accessory muscle usage. Abdominal: soft, nontender to palpation, no guarding, no appreciable organomegaly Ext: ROM intact. No gross muscle atrophy, no edema, no contractures Neuro: Speech clear, face symmetrical and CN II-XII grossly intact with no noted focal neuro deficits Psych: Alert and oriented to person, place, time, and situation. Appropriate and pleasant affect. Assessment and Plan of Care: CODE STATUS:[] DVT prophylaxis: [] Discussed with: [] Anticipated discharge date: [] Anticipated discharge place: [] A total of [] minutes was spent on the care of this complex patient more than 50% of the time was spent in counseling and care coordination. Objective - Vital Signs Vital signs: Vital Signs Temp 97.8 F 12/05/21 08:16 Pulse 56 L 12/05/21 08:16 Resp 16 12/05/21 08:16 BP 108/66 12/05/21 08:16 Pulse Ox 100 12/05/21 08:16 Intake & Output 12/04/21 12/05/21 12/05/21 18:59 06:59 18:59 Intake Total 1350 1300 Balance 1350 1300 Weight 81.647 kg 60 kg Intake: Intake, IV Titration 1350 1300 Amount Cytarabine/Pf 5,500 mg In 500 500 Sodium Chloride 0.9% 500 ml 500 ml In Empty Bag 1 bag @ 258.333 mls/hr IV Q12H [facility] Rx#:[id number] Ondansetron 16 mg In 50 Sodium Chloride 0.9% 50 ml @ 232 mls/hr IVPB Q48H [facility] Rx#:[id number] Sodium Chloride 0.9% 1, 800 800 000 ml @ 100 mls/hr IV . Q10H [facility] Rx#:[id number] - Labs CBC & Chem 7: 12/05/21 05:50 12/05/21 05:50 Labs: Abnormal Lab Results - Last 24 Hours (Table) 12/05/21 12/05/21 Range/Units 05:50 05:50 RBC 3.16 L (3.80-5.40) m/uL Hgb 10.8 L (11.4-16.0) gm/dL Hct 32.2 L (34.0-46.0) % MCV 102.0 H (80.0-100.0) fL RDW 19.5 H (11.5-15.5) % Plt Count 134 L (150-450) k/uL Lymphocytes # 0.2 L (1.0-4.8) k/uL Chloride 111 H (98-107) mmol/L Glucose 160 H (74-99) mg/dL AST 45 H (14-36) U/L ALT 47 H (4-34) U/L Total Protein 5.8 L (6.3-8.2) g/dL Albumin 3.4 L (3.5-5.0) g/dL
[2021-12-05] MEDS ORDERED: LORazepam 2 MG/ML INJ IV PRN (12:26)
--- NOTE | 2021-12-05 12:31 | P.PN ---
Subjective Progress Note Date: 12/05/21 Principal diagnosis: AML, FLT 3 positive, admit for CIVI, consolidation cycle #3 In f/u pt denies fever, oral irritation, eye pain, dryness or vision changes, cough, nausea, acute changes in bowel or bladder, she is fully ambulatory, tolerating oral intake, denies pain. Objective - Vital Signs Vital signs: Vital Signs Temp 98.2 F 12/05/21 11:02 Pulse 60 12/05/21 11:02 Resp 16 12/05/21 11:02 BP 109/62 12/05/21 11:02 Pulse Ox 99 12/05/21 11:02 Intake & Output 12/04/21 12/05/21 12/05/21 18:59 06:59 18:59 Intake Total 1350 1300 Balance 1350 1300 Weight 81.647 kg 60 kg Intake: Intake, IV Titration 1350 1300 Amount Cytarabine/Pf 5,500 mg In 500 500 Sodium Chloride 0.9% 500 ml 500 ml In Empty Bag 1 bag @ 258.333 mls/hr IV Q12H [facility] Rx#:[id number] Ondansetron 16 mg In 50 Sodium Chloride 0.9% 50 ml @ 232 mls/hr IVPB Q48H [facility] Rx#:[id number] Sodium Chloride 0.9% 1, 800 800 000 ml @ 100 mls/hr IV . Q10H [facility] Rx#:[id number] - Constitutional General appearance: Present: average body habitus, cooperative, no acute dis tress - EENT Eyes: Present: anicteric sclerae, EOMI ENT: Present: hearing grossly normal, normal oropharynx - Respiratory Respiratory: bilateral: CTA - Cardiovascular Rhythm: regular Heart sounds: normal: S1, S2 Abnormal Heart Sounds: Absent: systolic murmur, diastolic murmur, rub, S3 Gallop, S4 Gallop, click, other - Peripheral edema leg Peripheral Edema: bilateral: None - Gastrointestinal General gastrointestinal: Present: normal bowel sounds, soft - Integumentary Integumentary: Present: normal - Neurologic Neurologic: Present: CNII-XII intact - Musculoskeletal Musculoskeletal: Present: strength equal bilaterally - Psychiatric Psychiatric: Present: A&O x's 3, appropriate affect, intact judgment & insight - Labs CBC & Chem 7: 12/05/21 05:50 12/05/21 05:50 Labs: Abnormal Lab Results - Last 24 Hours (Table) 12/05/21 12/05/21 Range/Units 05:50 05:50 RBC 3.16 L (3.80-5.40) m/uL Hgb 10.8 L (11.4-16.0) gm/dL Hct 32.2 L (34.0-46.0) % MCV 102.0 H (80.0-100.0) fL RDW 19.5 H (11.5-15.5) % Plt Count 134 L (150-450) k/uL Lymphocytes # 0.2 L (1.0-4.8) k/uL Chloride 111 H (98-107) mmol/L Glucose 160 H (74-99) mg/dL AST 45 H (14-36) U/L ALT 47 H (4-34) U/L Total Protein 5.8 L (6.3-8.2) g/dL Albumin 3.4 L (3.5-5.0) g/dL Assessment and Plan (1) AML (acute myeloid leukemia) Narrative/Plan: IM consulted for medical management Supportive meds ordered Encourage ambulation GI/DVT prophylaxis [place] fluids Labs daily F/U daily Ativan PRN at HS for anxiety Current Visit: Yes Status: Chronic Priority: High Code(s): C92.00 - ACUTE MYELOBLASTIC LEUKEMIA, NOT HAVING ACHIEVED REMISSION SNOMED Code(s): 55762018 Plan: Doctor attests: I performed a history and physical examination of this patient, developed impression and plan of care, discussed with dictator. I agree with dictators note, documented as a scribe.
--- NOTE | 2021-12-05 13:11 | P.PN ---
Subjective Progress Note Date: 12/05/21 Pt doing well today, in good spirits. No complaints. Objective - Vital Signs Vital signs: Vital Signs Temp 98.2 F 12/05/21 11:02 Pulse 60 12/05/21 11:02 Resp 16 12/05/21 11:02 BP 109/62 12/05/21 11:02 Pulse Ox 99 12/05/21 11:02 Intake & Output 12/04/21 12/05/21 12/05/21 18:59 06:59 18:59 Intake Total 1350 1300 Balance 1350 1300 Weight 81.647 kg 60 kg Intake: Intake, IV Titration 1350 1300 Amount Cytarabine/Pf 5,500 mg In 500 500 Sodium Chloride 0.9% 500 ml 500 ml In Empty Bag 1 bag @ 258.333 mls/hr IV Q12H [facility] Rx#:[id number] Ondansetron 16 mg In 50 Sodium Chloride 0.9% 50 ml @ 232 mls/hr IVPB Q48H [facility] Rx#:[id number] Sodium Chloride 0.9% 1, 800 800 000 ml @ 100 mls/hr IV . Q10H [facility] Rx#:[id number] - Exam Gen: awake, alert HEENT: normocephalic, atraumatic, good hearing acuity, moist mucous membranes Resp: good air exchange, breathing comfortably with no accessory muscle use CVS: good distal perfusion x 4, GI: soft, NTTP, ND : no SPT, no CVAT, putnam catheter not present MSK: no pitting edema, no clubbing Neuro: non-focal, moving all extremities Psych: cooperative, euthymic mood - Labs CBC & Chem 7: 12/05/21 05:50 12/05/21 05:50 Labs: Abnormal Lab Results - Last 24 Hours (Table) 12/05/21 12/05/21 Range/Units 05:50 05:50 RBC 3.16 L (3.80-5.40) m/uL Hgb 10.8 L (11.4-16.0) gm/dL Hct 32.2 L (34.0-46.0) % MCV 102.0 H (80.0-100.0) fL RDW 19.5 H (11.5-15.5) % Plt Count 134 L (150-450) k/uL Lymphocytes # 0.2 L (1.0-4.8) k/uL Chloride 111 H (98-107) mmol/L Glucose 160 H (74-99) mg/dL AST 45 H (14-36) U/L ALT 47 H (4-34) U/L Total Protein 5.8 L (6.3-8.2) g/dL Albumin 3.4 L (3.5-5.0) g/dL Assessment and Plan Assessment: AML Chemo per oncology service Paroxysmal atrial fibrillation, Depression GERD/Reflux Osteoarthritis (OA) All stable resume meds Disposition: home Anticipated discharge: after chemo is complete
[2021-12-05] MEDS: FAMOTIDINE 20 MG TAB PO SCH (22:20)
[2021-12-06] MEDS: SODIUM CHLORIDE 0.9% 1,000 ML IV SCH ×3 (04:54→20:14)
[2021-12-06 07:07] LABS: Anisocytosis Slight; Basophils % (A) 0 %; Eosinophils % (A) 1 %; HCT 30.2 % (34.0-46.0); HGB 9.9 gm/dL (11.4-16.0); Hypochromasia Slight; Lymphocytes # (A) 0.2 k/uL (1.0-4.8); Lymphocytes % (A) 5 %; MCHC 32.9 g/dL (31.0-37.0); MCV 103.4 fL (80.0-100.0); Macrocytosis Marked; Mean Platelet Volume 8.5; Monocytes # (A) 0.2 k/uL (0-1.0); Monocytes % (A) 6 %; Neutrophils # (A) 2.8 k/uL (1.3-7.7); Neutrophils % (A) 87 %; Platelet Count 110 k/uL (150-450); RBC 2.92 m/uL (3.80-5.40); RDW 19.5 % (11.5-15.5); WBC 3.2 k/uL (3.8-10.6)
[2021-12-06 07:15] LABS: ALT 43 U/L (4-34); AST 39 U/L (14-36); African American GFR (CKD) 74 (>60 ml/min/1.73 sqM); Albumin 2.9 g/dL (3.5-5.0); Albumin/Globulin Ratio 1.3; Alkaline Phosphatase 55 U/L (38-126); Anion Gap 2 mmol/L; Blood Urea Nitrogen 20 mg/dL (7-17); Calcium 8.5 mg/dL (8.4-10.2); Carbon Dioxide 29 mmol/L (22-30); Chloride 111 mmol/L (98-107); Globulin 2.3 g/dL; Glucose 93 mg/dL (74-99); Non-African American GFR(CKD) 65 (>60 ml/min/1.73 sqM); Phosphorus 4.4 mg/dL (2.5-4.5); Sodium 142 mmol/L (137-145); Total Bilirubin 0.4 mg/dL (0.2-1.3); Total Protein 5.2 g/dL (6.3-8.2); Uric Acid 5.4 mg/dL (3.7-7.4)
[2021-12-06] MEDS: METOPROLOL TARTRATE 25 MG TAB PO SCH ×2 (07:41→20:12)
[2021-12-06] MEDS: ENOXAPARIN 40 MG/0.4 ML SYRINGE SQ SCH (07:41)
[2021-12-06] MEDS: ACYCLOVIR 200 MG CAP PO SCH ×2 (07:41→20:13)
[2021-12-06] MEDS: PARoxetine 10 MG TAB PO SCH (07:42)
[2021-12-06] MEDS: prednisoLONE ACETATE 1% OPHTH DROPS 5 ML BTL BOTH EYES SCH ×4 (07:42→20:13)
[2021-12-06] MEDS: SALT AND SODA MOUTHWASH 1,000 ML PO SCH ×3 (07:43→17:50)
[2021-12-06 09:06] LABS: Poikilocytosis (M) Present
--- NOTE | 2021-12-06 10:28 | P.PN ---
Subjective Progress Note Date: 12/06/21 Principal diagnosis: AML, FLT 3 positive, admit for CIVI, consolidation cycle #3 In f/u pt feeling good, no c/o, slept well last night, no documented fever, VSS, denies oral irritation, eye pain, dryness or vision changes, cough, nausea, acute changes in bowel or bladder, she is fully ambulatory, tolerating oral intake, denies pain. Objective - Vital Signs Vital signs: Vital Signs Temp 98.3 F 12/06/21 05:00 Pulse 53 L 12/06/21 05:00 Resp 16 12/06/21 05:00 BP 107/62 12/06/21 05:00 Pulse Ox 97 12/06/21 05:00 Intake & Output 12/05/21 12/06/21 12/06/21 18:59 06:59 18:59 Intake Total 1200 800 Balance 1200 800 Weight 65 kg Intake: Intake, IV Titration 1200 800 Amount Sodium Chloride 0.9% 1, 1200 800 000 ml @ 100 mls/hr IV . Q10H [facility] Rx#:[id number] - Constitutional General appearance: Present: average body habitus, cooperative, no acute distress - EENT Eyes: Present: anicteric sclerae, EOMI, normal appearance ENT: Present: hearing grossly normal, normal oropharynx - Respiratory Respiratory: bilateral: CTA - Cardiovascular Rhythm: regular Heart sounds: normal: S1, S2 Abnormal Heart Sounds: Absent: systolic murmur, diastolic murmur, rub, S3 Gallop, S4 Gallop, click, other - Peripheral edema leg Peripheral Edema: bilateral: None - Gastrointestinal General gastrointestinal: Present: normal bowel sounds, soft. Absent: absent bowel sounds, decreased bowel sounds, distended, hepatomegaly, hyperactive bowel sounds, organomegaly, rigid, scaphoid, splenomegaly, tenderness, umbilical hernia, ventral hernia - Integumentary Integumentary Comment(s): right cheek has a mild reddened rash-pt had before during treatment Integumentary: Present: normal - Neurologic Neurologic: Present: CNII-XII intact - Musculoskeletal Musculoskeletal: Present: strength equal bilaterally - Psychiatric Psychiatric: Present: A&O x's 3, appropriate affect, intact judgment & insight - Labs CBC & Chem 7: 12/06/21 06:20 12/06/21 06:20 Labs: Abnormal Lab Results - Last 24 Hours (Table) 12/06/21 12/06/21 Range/Units 06:20 06:20 WBC 3.2 L (3.8-10.6) k/uL RBC 2.92 L (3.80-5.40) m/uL Hgb 9.9 L (11.4-16.0) gm/dL Hct 30.2 L (34.0-46.0) % MCV 103.4 H (80.0-100.0) fL RDW 19.5 H (11.5-15.5) % Plt Count 110 L (150-450) k/uL Lymphocytes # 0.2 L (1.0-4.8) k/uL Macrocytosis Marked A Chloride 111 H (98-107) mmol/L BUN 20 H (7-17) mg/dL AST 39 H (14-36) U/L ALT 43 H (4-34) U/L Total Protein 5.2 L (6.3-8.2) g/dL Albumin 2.9 L (3.5-5.0) g/dL Assessment and Plan (1) AML (acute myeloid leukemia) Narrative/Plan: IM consulted for medical management Supportive meds ordered Encourage ambulation GI/DVT prophylaxis [place] fluids Labs daily F/U daily Ativan PRN at HS for anxiety Plan for GCSF onpro Saturday Prophylactic abx, antifungal and antiviral on DC Current Visit: Yes Status: Chronic Priority: High Code(s): C92.00 - ACUTE MYELOBLASTIC LEUKEMIA, NOT HAVING ACHIEVED REMISSION SNOMED Code(s): 77353310 Plan: Doctor attests: I performed a history and physical examination of this patient, developed impression and plan of care, discussed with dictator. I agree with dictators note, documented as a scribe.
--- NOTE | 2021-12-06 11:21 | P.PN ---
Subjective Progress Note Date: 12/06/21 No new copmlaints today. Downtrending WBC, Hgb, PLTs. Objective - Vital Signs Vital signs: Vital Signs Temp 98.3 F 12/06/21 05:00 Pulse 53 L 12/06/21 05:00 Resp 16 12/06/21 05:00 BP 107/62 12/06/21 05:00 Pulse Ox 97 12/06/21 05:00 Intake & Output 12/05/21 12/06/21 12/06/21 18:59 06:59 18:59 Intake Total 1200 800 Balance 1200 800 Weight 65 kg Intake: Intake, IV Titration 1200 800 Amount Sodium Chloride 0.9% 1, 1200 800 000 ml @ 100 mls/hr IV . Q10H [facility] Rx#:[id number] Other: Voiding Method Toilet - Exam Gen: awake, alert HEENT: normocephalic, atraumatic, good hearing acuity, moist mucous membranes Resp: good air exchange, breathing comfortably with no accessory muscle use CVS: good distal perfusion x 4, GI: soft, NTTP, ND : no SPT, no CVAT, putnam catheter not present MSK: no pitting edema, no clubbing Neuro: non-focal, moving all extremities Psych: cooperative, euthymic mood - Labs CBC & Chem 7: 12/06/21 06:20 12/06/21 06:20 Labs: Abnormal Lab Results - Last 24 Hours (Table) 12/06/21 12/06/21 Range/Units 06:20 06:20 WBC 3.2 L (3.8-10.6) k/uL RBC 2.92 L (3.80-5.40) m/uL Hgb 9.9 L (11.4-16.0) gm/dL Hct 30.2 L (34.0-46.0) % MCV 103.4 H (80.0-100.0) fL RDW 19.5 H (11.5-15.5) % Plt Count 110 L (150-450) k/uL Lymphocytes # 0.2 L (1.0-4.8) k/uL Macrocytosis Marked A Chloride 111 H (98-107) mmol/L BUN 20 H (7-17) mg/dL AST 39 H (14-36) U/L ALT 43 H (4-34) U/L Total Protein 5.2 L (6.3-8.2) g/dL Albumin 2.9 L (3.5-5.0) g/dL Assessment and Plan Assessment: AML Chemo per oncology service Paroxysmal atrial fibrillation, Depression GERD/Reflux Osteoarthritis (OA) All stable resume meds Disposition: home Anticipated discharge: after chemo is complete
[2021-12-06] MEDS: FAMOTIDINE 20 MG/2 ML VIAL IV SCH (11:59)
[2021-12-06] MEDS: DEXAMETHASONE SOD PHOSPHATE 10 MG/ML 1 ML VIAL IV SCH (11:59)
[2021-12-06] MEDS: ONDANSETRON 16 MG in SODIUM CHLORIDE 0.9% 50 ML IVPB SCH (11:59)
[2021-12-06] MEDS: CYTARABINE IV SCH (12:58)
[2021-12-06] MEDS: SODIUM CHLORIDE 0.9% IV SCH (12:58)
[2021-12-06] MEDS: FAMOTIDINE 20 MG TAB PO SCH (20:13)
[2021-12-07] MEDS: CYTARABINE IV SCH (00:48)
[2021-12-07] MEDS: SODIUM CHLORIDE 0.9% IV SCH (00:48)
[2021-12-07] MEDS: prednisoLONE ACETATE 1% OPHTH DROPS 5 ML BTL BOTH EYES SCH ×4 (08:06→21:41)
[2021-12-07] MEDS: SALT AND SODA MOUTHWASH 1,000 ML PO SCH ×3 (08:07→17:03)
[2021-12-07] MEDS: METOPROLOL TARTRATE 25 MG TAB PO SCH ×2 (08:07→21:40)
[2021-12-07] MEDS: ACYCLOVIR 200 MG CAP PO SCH ×2 (08:07→21:40)
[2021-12-07] MEDS: PARoxetine 10 MG TAB PO SCH (08:07)
[2021-12-07] MEDS: ENOXAPARIN 40 MG/0.4 ML SYRINGE SQ SCH ×2 (08:07→08:14)
[2021-12-07] MEDS: SODIUM CHLORIDE 0.9% 1,000 ML IV SCH ×2 (08:08→17:03)
[2021-12-07 08:35] LABS: Anisocytosis Slight; Basophils % (A) 0 %; Eosinophils % (A) 0 %; HCT 31.4 % (34.0-46.0); HGB 10.1 gm/dL (11.4-16.0); Hypochromasia Slight; Lymphocytes # (A) 0.1 k/uL (1.0-4.8); Lymphocytes % (A) 2 %; MCH 33.7 pg (25.0-35.0); MCHC 32.2 g/dL (31.0-37.0); MCV 104.5 fL (80.0-100.0); Macrocytosis Marked; Mean Platelet Volume 8.6; Monocytes # (A) 0.1 k/uL (0-1.0); Monocytes % (A) 2 %; Neutrophils # (A) 4.3 k/uL (1.3-7.7); Neutrophils % (A) 96 %; Platelet Count 115 k/uL (150-450); RBC 3.01 m/uL (3.80-5.40); RDW 19.8 % (11.5-15.5); WBC 4.4 k/uL (3.8-10.6)
[2021-12-07 08:47] LABS: African American GFR (CKD) >90 (>60 ml/min/1.73 sqM); Anion Gap 5 mmol/L; Blood Urea Nitrogen 15 mg/dL (7-17); Calcium 8.7 mg/dL (8.4-10.2); Carbon Dioxide 28 mmol/L (22-30); Chloride 110 mmol/L (98-107); Glucose 124 mg/dL (74-99); Non-African American GFR(CKD) 86 (>60 ml/min/1.73 sqM); Potassium 3.7 mmol/L (3.5-5.1); Sodium 143 mmol/L (137-145)
--- NOTE | 2021-12-07 13:29 | P.PN ---
Subjective Progress Note Date: 12/07/21 Principal diagnosis: AML, FLT 3 positive, admit for CIVI, consolidation cycle #3 In f/u pt feeling good, no c/o, denies oral irritation, eye pain, dryness or vision changes, cough, nausea, acute changes in bowel or bladder, she is fully ambulatory, tolerating oral intake, denies pain. Objective - Vital Signs Vital signs: Vital Signs Temp 98.1 F 12/07/21 12:36 Pulse 85 12/07/21 12:36 Resp 16 12/07/21 12:36 BP 110/70 12/07/21 12:36 Pulse Ox 96 12/07/21 12:36 Intake & Output 12/06/21 12/07/21 12/07/21 18:59 06:59 18:59 Intake Total 1550 Balance 1550 Weight 66.5 kg Intake: Intake, IV Titration 1550 Amount Cytarabine/Pf 5,500 mg In 750 Sodium Chloride 0.9% 500 ml 500 ml In Empty Bag 1 bag @ 258.333 mls/hr IV Q12H [facility] Rx#:[id number] Sodium Chloride 0.9% 1, 800 000 ml @ 100 mls/hr IV . Q10H [facility] Rx#:[id number] Other: Voiding Method Toilet Toilet Toilet # Voids 2 - Constitutional General appearance: Present: average body habitus, cooperative, no acute distress - EENT Eyes: Present: anicteric sclerae, EOMI ENT: Present: hearing grossly normal, normal oropharynx - Respiratory Respiratory: bilateral: CTA - Cardiovascular Rhythm: regular Heart sounds: normal: S1, S2 Abnormal Heart Sounds: Absent: systolic murmur, diastolic murmur, rub, S3 Gallop, S4 Gallop, click, other - Peripheral edema leg Peripheral Edema: bilateral: None - Gastrointestinal General gastrointestinal: Present: normal bowel sounds, soft. Absent: absent bowel sounds, decreased bowel sounds, distended, hepatomegaly, hyperactive bowel sounds, organomegaly, rigid, scaphoid, splenomegaly, tenderness, umbilical hernia, ventral hernia - Integumentary Integumentary: Present: normal - Neurologic Neurologic: Present: CNII-XII intact - Musculoskeletal Musculoskeletal: Present: strength equal bilaterally - Psychiatric Psychiatric: Present: A&O x's 3, appropriate affect, intact judgment & insight - Labs CBC & Chem 7: 12/07/21 08:07 12/07/21 08:07 Labs: Abnormal Lab Results - Last 24 Hours (Table) 12/07/21 12/07/21 Range/Units 08:07 08:07 RBC 3.01 L (3.80-5.40) m/uL Hgb 10.1 L (11.4-16.0) gm/dL Hct 31.4 L (34.0-46.0) % MCV 104.5 H (80.0-100.0) fL RDW 19.8 H (11.5-15.5) % Plt Count 115 L (150-450) k/uL Lymphocytes # 0.1 L (1.0-4.8) k/uL Macrocytosis Marked A Chloride 110 H (98-107) mmol/L Glucose 124 H (74-99) mg/dL Assessment and Plan (1) AML (acute myeloid leukemia) Narrative/Plan: IM consulted for medical management Supportive meds ordered Encourage ambulation GI/DVT prophylaxis [place] fluids Labs daily F/U daily Ativan PRN at HS for anxiety Plan for GCSF on Saturday in ofc, appt date and time in discharge plan Prophylactic abx, antifungal and antiviral on DC Current Visit: Yes Status: Chronic Priority: High Code(s): C92.00 - ACUTE MYELOBLASTIC LEUKEMIA, NOT HAVING ACHIEVED REMISSION SNOMED Code(s): 74819052 Plan: Doctor attests: I performed a history and physical examination of this patient, developed impression and plan of care, discussed with dictator. I agree with dictators note, documented as a scribe.
--- NOTE | 2021-12-07 15:06 | P.PN ---
<Román Pena - Last Filed: 12/07/21 14:53> Subjective Progress Note Date: 12/07/21 Hospital course: Patient is a very pleasant 61-year-old female whom has a past medical history of hypertension and was diagnosed with AML on 06/21/21. She is currently admitted under oncology team undergoing her third cycle of chemotherapy and we have been consulted to follow along for continued medical management throughout patient's hospitalization. Patient was seen and fully evaluated at the bedside this chirag singh. She reports feeling great denies having any nausea, vomiting, dizziness, lightheadedness, diarrhea, weakness, fatigue, or any other complaints. She reports her appetite has been good and denies having any current needs or complaints. Morning labs reviewed. Hemoglobin stable at 10.1 patient with mild thrombocytopenia with platelet count of 115. Physical exam: Vital signs reviewed and stable. General: Nontoxic, no distress and appears stated age. Derm: Skin warm and dry, normal coloration for ethnicity. Head: Atraumatic, normocephalic and symmetric. Eyes: EOMs intact, no lid lag, and anicteric sclera Mouth: no lip lesions, mucus membranes moist Cardiovascular: regular rate and rhythm with normal S1S2, systolic murmur, positive posterior tibial pulses bilaterally, and cap refill < 2 seconds. Lungs: Respirations even, regular, and unlabored on room air. Lungs CTA bilaterally, no rhonchi, no rales, no wheezing, and no accessory muscle usage. Abdominal: soft, nontender to palpation, no guarding, no appreciable organomegaly Ext: ROM intact. No gross muscle atrophy, no edema, no contractures Neuro: Speech clear, face symmetrical and CN II-XII grossly intact with no noted focal neuro deficits Psych: Alert and oriented to person, place, time, and situation. Appropriate and pleasant affect. Assessment and Plan of Care: Acute myeloid leukemia -Currently undergoing third cycle of chemotherapy -Management per primary admitting oncology team -Safe and supportive care. -DVT prophylaxis with Lovenox Bicytopenia secondary to the adverse effects of chemotherapy treatment -Hemoglobin stable at 10.1 patient with mild thrombocytopenia with platelet count of 115. -We will continue to monitor with repeat a.m. labs. Hypertension Monitor vital signs and continue daily medication regimen with metoprolol 25 mg twice daily. Thank you for allowing us to participate in the care of this pleasant patient. Do not hesitate to contact us with questions. Someone can be reached from the [facility] hospitalist group all hours of the day at [phone] or via perfect serve. Objective - Vital Signs Vital signs: Vital Signs Temp 98.0 F 12/07/21 03:51 Pulse 69 12/07/21 08:05 Resp 18 12/07/21 08:05 BP 121/69 12/07/21 08:05 Pulse Ox 96 12/07/21 08:05 Intake & Output 12/06/21 12/07/21 12/07/21 18:59 06:59 18:59 Intake Total 1550 Balance 1550 Weight 66.5 kg Intake: Intake, IV Titration 1550 Amount Cytarabine/Pf 5,500 mg In 750 Sodium Chloride 0.9% 500 ml 500 ml In Empty Bag 1 bag @ 258.333 mls/hr IV Q12H [facility] Rx#:[id number] Sodium Chloride 0.9% 1, 800 000 ml @ 100 mls/hr IV . Q10H [facility] Rx#:[id number] Other: Voiding Method Toilet Toilet # Voids 2 - Labs CBC & Chem 7: 12/07/21 08:07 12/07/21 08:07 Labs: Abnormal Lab Results - Last 24 Hours (Table) 12/06/21 Range/Units 06:20 Lymphocytes # 0.2 L (1.0-4.8) k/uL <Avelino Damico A - Last Filed: 12/07/21 15:59> Subjective agree with note and plan Objective - Vital Signs Vital signs: Vital Signs Temp 98.1 F 12/07/21 12:36 Pulse 85 12/07/21 12:36 Resp 16 12/07/21 12:36 BP 110/70 12/07/21 12:36 Pulse Ox 96 12/07/21 12:36 Intake & Output 12/06/21 12/07/21 12/07/21 18:59 06:59 18:59 Intake Total 1550 Balance 1550 Weight 66.5 kg Intake: Intake, IV Titration 1550 Amount Cytarabine/Pf 5,500 mg In 750 Sodium Chloride 0.9% 500 ml 500 ml In Empty Bag 1 bag @ 258.333 mls/hr IV Q12H [facility] Rx#:[id number] Sodium Chloride 0.9% 1, 800 000 ml @ 100 mls/hr IV . Q10H [facility] Rx#:[id number] Other: Voiding Method Toilet Toilet Toilet # Voids 2 - Labs CBC & Chem 7: 12/07/21 08:07 12/07/21 08:07 Labs: Abnormal Lab Results - Last 24 Hours (Table) 12/07/21 12/07/21 Range/Units 08:07 08:07 RBC 3.01 L (3.80-5.40) m/uL Hgb 10.1 L (11.4-16.0) gm/dL Hct 31.4 L (34.0-46.0) % MCV 104.5 H (80.0-100.0) fL RDW 19.8 H (11.5-15.5) % Plt Count 115 L (150-450) k/uL Lymphocytes # 0.1 L (1.0-4.8) k/uL Macrocytosis Marked A Chloride 110 H (98-107) mmol/L Glucose 124 H (74-99) mg/dL
[2021-12-07] MEDS: FAMOTIDINE 20 MG TAB PO SCH (21:40)
[2021-12-08] MEDS: SODIUM CHLORIDE 0.9% 1,000 ML IV SCH ×3 (02:21→20:15)
[2021-12-08 07:56] LABS: Anisocytosis Slight; Basophils % (A) 0 %; Eosinophils # (A) 0.1 k/uL (0-0.7); Eosinophils % (A) 3 %; HCT 28.9 % (34.0-46.0); HGB 9.5 gm/dL (11.4-16.0); Lymphocytes # (A) 0.1 k/uL (1.0-4.8); Lymphocytes % (A) 5 %; MCH 33.9 pg (25.0-35.0); MCV 102.8 fL (80.0-100.0); Macrocytosis Marked; Mean Platelet Volume 8.3; Monocytes % (A) 1 %; Neutrophils # (A) 1.9 k/uL (1.3-7.7); Neutrophils % (A) 89 %; RBC 2.81 m/uL (3.80-5.40); RDW 19.4 % (11.5-15.5); WBC 2.2 k/uL (3.8-10.6)
[2021-12-08 08:04] LABS: ALT 48 U/L (4-34); AST 45 U/L (14-36); African American GFR (CKD) 86 (>60 ml/min/1.73 sqM); Albumin/Globulin Ratio 1.3; Alkaline Phosphatase 57 U/L (38-126); Anion Gap 1 mmol/L; Blood Urea Nitrogen 14 mg/dL (7-17); Calcium 8.6 mg/dL (8.4-10.2); Carbon Dioxide 32 mmol/L (22-30); Chloride 110 mmol/L (98-107); Globulin 2.4 g/dL; Glucose 81 mg/dL (74-99); Non-African American GFR(CKD) 74 (>60 ml/min/1.73 sqM); Potassium 3.9 mmol/L (3.5-5.1); Sodium 143 mmol/L (137-145); Total Bilirubin 0.6 mg/dL (0.2-1.3); Total Protein 5.4 g/dL (6.3-8.2)
[2021-12-08] MEDS: SALT AND SODA MOUTHWASH 1,000 ML PO SCH ×3 (08:14→17:30)
[2021-12-08] MEDS: prednisoLONE ACETATE 1% OPHTH DROPS 5 ML BTL BOTH EYES SCH ×4 (08:14→20:14)
[2021-12-08] MEDS: ENOXAPARIN 40 MG/0.4 ML SYRINGE SQ SCH (08:15)
[2021-12-08] MEDS: ACYCLOVIR 200 MG CAP PO SCH ×2 (08:15→20:13)
[2021-12-08] MEDS: PARoxetine 10 MG TAB PO SCH (08:15)
[2021-12-08] MEDS: METOPROLOL TARTRATE 25 MG TAB PO SCH ×2 (08:15→20:14)
--- NOTE | 2021-12-08 11:44 | P.PN ---
Subjective Progress Note Date: 12/08/21 Hospital course: Patient is a very pleasant 61-year-old female whom has a past medical history of hypertension and was diagnosed with AML on 06/21/21. She is currently admitted under oncology team undergoing her third cycle of chemotherapy and we have been consulted to follow along for continued medical management throughout patient's hospitalization. Patient was seen and fully evaluated at the bedside this morning. She reports that she noticed that she has been having nasal congestion over the past 2-3 days. She is concerned as she is in the hospital and knows that there are Covid patient's and would like a test as she is uncertain if she has nasal congestion from cindy and illness versus being congested due to the dry air. Patient otherwise denies having any complaints including headache, lightheadedness, dizziness, chest pain, palpitations, cough, shortness of breath,. Nausea, vomiting, diarrhea, weakness, or fatigue. She continues to report appetite is good and denies any further needs or concerns. Morning labs reviewed revealing pancytopenia with WBC of 2.2, hemoglobin 9.5, and platelet count of 115. Physical exam: Vital signs reviewed and stable. General: Nontoxic, no distress and appears stated age. Derm: Skin warm and dry, normal coloration for ethnicity. Head: Atraumatic, normocephalic and symmetric. Eyes: EOMs intact, no lid lag, and anicteric sclera Mouth: no lip lesions, mucus membranes moist Cardiovascular: regular rate and rhythm with normal S1S2, systolic murmur, positive posterior tibial pulses bilaterally, and cap refill < 2 seconds. Lungs: Respirations even, regular, and unlabored on room air. Lungs CTA bilaterally, no rhonchi, no rales, no wheezing, and no accessory muscle usage. Abdominal: soft, nontender to palpation, no guarding, no appreciable organomegaly Ext: ROM intact. No gross muscle atrophy, no edema, no contractures Neuro: Speech clear, face symmetrical and CN II-XII grossly intact with no noted focal neuro deficits Psych: Alert and oriented to person, place, time, and situation. Appropriate and pleasant affect. Assessment and Plan of Care: Acute myeloid leukemia -Currently undergoing third cycle of chemotherapy -Management per primary admitting oncology team -Safe and supportive care. -DVT prophylaxis with Lovenox Pancytopenia secondary to the adverse effects of chemotherapy treatment -Hemoglobin stable at 9.5 -We will continue to monitor with repeat a.m. labs. Hypertension Monitor vital signs and continue daily medication regimen with metoprolol 25 mg twice daily. Thank you for allowing us to participate in the care of this pleasant patient. Do not hesitate to contact us with questions. Someone can be reached from the [facility] hospitalist group all hours of the day at [phone] or via perfect serve. Objective - Vital Signs Vital signs: Vital Signs Temp 98.0 F 12/08/21 04:57 Pulse 65 12/08/21 04:57 Resp 18 12/08/21 04:57 BP 123/75 12/08/21 04:57 Pulse Ox 99 12/08/21 04:57 Intake & Output 12/07/21 12/08/21 12/08/21 18:59 06:59 18:59 Intake Total 360 Balance 360 Weight 84.3 kg Intake: Oral 360 Other: Voiding Method Toilet Toilet # Voids 4 2 - Labs CBC & Chem 7: 12/08/21 07:03 12/08/21 07:03 Labs: Abnormal Lab Results - Last 24 Hours (Table) 12/07/21 12/07/21 12/08/21 Range/Units 08:07 08:07 07:03 RBC 3.01 L (3.80-5.40) m/uL Hgb 10.1 L (11.4-16.0) gm/dL Hct 31.4 L (34.0-46.0) % MCV 104.5 H (80.0-100.0) fL RDW 19.8 H (11.5-15.5) % Plt Count 115 L (150-450) k/uL Lymphocytes # 0.1 L (1.0-4.8) k/uL Macrocytosis Marked A Chloride 110 H 110 H (98-107) mmol/L Carbon Dioxide 32 H (22-30) mmol/L Glucose 124 H (74-99) mg/dL AST 45 H (14-36) U/L ALT 48 H (4-34) U/L Total Protein 5.4 L (6.3-8.2) g/dL Albumin 3.0 L (3.5-5.0) g/dL
[2021-12-08 11:50] LABS: Platelet Count 99 k/uL (150-450)
[2021-12-08 11:52] LABS: Ovalocytes Present; Polychromasia Present; Tear Drop Cells Present
[2021-12-08 11:54] LABS: Basophilic Stippling Present
[2021-12-08] MEDS ORDERED: PEGFILGRASTIM 6 MG/0.6 ML SYRINGE (ONPRO) SQ ONE (12:00)
[2021-12-08] MEDS: FAMOTIDINE 20 MG/2 ML VIAL IV SCH (12:55)
[2021-12-08] MEDS: ONDANSETRON 16 MG in SODIUM CHLORIDE 0.9% 50 ML IVPB SCH (12:56)
[2021-12-08] MEDS: DEXAMETHASONE SOD PHOSPHATE 10 MG/ML 1 ML VIAL IV SCH (12:56)
[2021-12-08] MEDS: SODIUM CHLORIDE 0.9% IV SCH (14:29)
[2021-12-08] MEDS: CYTARABINE IV SCH (14:29)
[2021-12-08] MEDS ORDERED: NON FORMULARY DRUG IM SCH (17:45)
[2021-12-08] MEDS ORDERED: TIXAGEVIMAB/CILGAVIMAB (EUA) 300 MG/3 ML COMBO.PKG IM ONE (17:45)
[2021-12-08] MEDS: FAMOTIDINE 20 MG TAB PO SCH (20:14)
--- NOTE | 2021-12-08 20:31 | P.PN ---
Subjective Progress Note Date: 12/08/21 Principal diagnosis: AML COnsolidation She is tolerating consolidation #3 well without complaints or intolerable side effects. Dr. Forte discussed benefit versus risk of the new emergency approved monoclonal for high risk patients and she will receive this prior to discharge. All questions answered. Objective - Vital Signs Vital signs: Vital Signs Temp 98.6 F 12/08/21 12:00 Pulse 53 L 12/08/21 12:00 Resp 18 12/08/21 12:00 BP 110/69 12/08/21 12:00 Pulse Ox 99 12/08/21 12:00 Intake & Output 12/07/21 12/08/21 12/08/21 18:59 06:59 18:59 Intake Total 360 Balance 360 Weight 84.3 kg Intake: Oral 360 Other: Voiding Method Toilet Toilet Toilet # Voids 4 2 - Exam - Constitutional General appearance: Present: average body habitus, cooperative, no acute distress - EENT Eyes: Present: anicteric sclerae, EOMI ENT: Present: hearing grossly normal, normal oropharynx - Respiratory Respiratory: bilateral: CTA - Cardiovascular Rhythm: regular Heart sounds: normal: S1, S2 Abnormal Heart Sounds: Absent: systolic murmur, diastolic murmur, rub, S3 Gallop, S4 Gallop, click, other - Peripheral edema leg Peripheral Edema: bilateral: None - Gastrointestinal General gastrointestinal: Present: normal bowel sounds, soft. Absent: absent bowel sounds, decreased bowel sounds, distended, hepatomegaly, hyperactive bowel sounds, organomegaly, rigid, scaphoid, splenomegaly, tenderness, umbilical her best, ventral hernia - Integumentary Integumentary: Present: normal - Neurologic Neurologic: Present: CNII-XII intact - Musculoskeletal Musculoskeletal: Present: strength equal bilaterally - Psychiatric Psychiatric: Present: A&O x's 3, appropriate affect, intact judgment & insight - Labs CBC & Chem 7: 12/08/21 07:03 12/08/21 07:03 Labs: Abnormal Lab Results - Last 24 Hours (Table) 12/08/21 12/08/21 Range/Units 07:03 07:03 WBC 2.2 L (3.8-10.6) k/uL RBC 2.81 L (3.80-5.40) m/uL Hgb 9.5 L (11.4-16.0) gm/dL Hct 28.9 L (34.0-46.0) % MCV 102.8 H (80.0-100.0) fL RDW 19.4 H (11.5-15.5) % Plt Count 99 L (150-450) k/uL Lymphocytes # 0.1 L (1.0-4.8) k/uL Macrocytosis Marked A Chloride 110 H (98-107) mmol/L Carbon Dioxide 32 H (22-30) mmol/L AST 45 H (14-36) U/L ALT 48 H (4-34) U/L Total Protein 5.4 L (6.3-8.2) g/dL Albumin 3.0 L (3.5-5.0) g/dL Assessment and Plan (1) AML (acute myeloid leukemia) Current Visit: Yes Status: Chronic Priority: High Code(s): C92.00 - ACUTE MYELOBLASTIC LEUKEMIA, NOT HAVING ACHIEVED REMISSION SNOMED Code(s): 41140099 Plan: PLan on [place] prior to discharge, all questions answered and feel benefit outweighs risk given her high risk picture and not receiving booster. She will be completed with consolidation #3 tomorrow and can be discharged on her regular prophylaxic regimen at discharge after [place]. She will be seen in office on Saturday for GCSF CBC twice a week and weekly visits Physician Attest: I have completed the full history and physical and agree with above dictation, dictated as a scribe.
[2021-12-09] MEDS: SODIUM CHLORIDE 0.9% IV SCH (03:16)
[2021-12-09] MEDS: CYTARABINE IV SCH (03:16)
[2021-12-09 06:27] LABS: Anisocytosis Slight; Basophils % (A) 0 %; Eosinophils % (A) 1 %; HCT 26.6 % (34.0-46.0); Lymphocytes # (A) 0.1 k/uL (1.0-4.8); Lymphocytes % (A) 2 %; MCH 33.7 pg (25.0-35.0); MCHC 33.7 g/dL (31.0-37.0); MCV 99.9 fL (80.0-100.0); Macrocytosis Slight; Mean Platelet Volume 7.8; Monocytes % (A) 1 %; Neutrophils # (A) 3.1 k/uL (1.3-7.7); Neutrophils % (A) 96 %; Platelet Count 87 k/uL (150-450); RBC 2.66 m/uL (3.80-5.40); RDW 17.8 % (11.5-15.5); WBC 3.3 k/uL (3.8-10.6)
[2021-12-09] MEDS: PARoxetine 10 MG TAB PO SCH (09:07)
[2021-12-09] MEDS: METOPROLOL TARTRATE 25 MG TAB PO SCH (09:07)
[2021-12-09] MEDS: ACYCLOVIR 200 MG CAP PO SCH (09:07)
[2021-12-09] MEDS: SALT AND SODA MOUTHWASH 1,000 ML PO SCH ×2 (09:09→12:31)
[2021-12-09] MEDS: prednisoLONE ACETATE 1% OPHTH DROPS 5 ML BTL BOTH EYES SCH ×2 (09:09→12:31)
[2021-12-09] MEDS: ENOXAPARIN 40 MG/0.4 ML SYRINGE SQ SCH (09:09)
[2021-12-09] MEDS: SODIUM CHLORIDE 0.9% 1,000 ML IV SCH (09:10)
[2021-12-09 09:25] LABS: African American GFR (CKD) 109.1 (60.0-200.0); Albumin 3.4 g/dL (3.8-4.9); Albumin/Globulin Ratio 2.13 (1.60-3.17); Anion Gap 3.2 mmol/L (10.00-18.00); Calcium 8.5 mg/dL (8.7-10.3); Carbon Dioxide 31.8 mmol/L (20.0-27.5); Globulin 1.6 g/dL (1.6-3.3); Magnesium 1.9 mg/dL (1.5-2.4); Non-African American GFR(CKD) 94.2 (60.0-200.0); Potassium 4.1 mmol/L (3.5-5.5); Total Bilirubin 0.3 mg/dL (0.30-1.20)
[2021-12-09 11:25] VITALS: BP 115/65; PULSE 53; RESP 20; TEMP 98.4
[2021-12-09] MEDS ORDERED: TIXAGEVIMAB/CILGAVIMAB (EUA) 300 MG/3 ML COMBO.PKG IM ONE (12:00)
--- NOTE | 2021-12-09 12:38 | P.PN ---
Subjective Progress Note Date: 12/09/21 No new copmlaints today. Plan is for discharge after receiving monoclonal Ab and changing PICC line dressing. Objective - Vital Signs Vital signs: Vital Signs Temp 98.4 F 12/09/21 11:24 Pulse 53 L 12/09/21 11:24 Resp 20 12/09/21 11:24 BP 115/65 12/09/21 11:24 Pulse Ox 100 12/09/21 11:24 Intake & Output 12/08/21 12/09/21 12/09/21 18:59 06:59 18:59 Intake Total 360 Balance 360 Weight 84 kg Intake: Oral 360 Other: Voiding Method Toilet Toilet Toilet # Voids 3 3 - Exam Gen: awake, alert HEENT: normocephalic, atraumatic, good hearing acuity, moist mucous membranes Resp: good air exchange, breathing comfortably with no accessory muscle use CVS: good distal perfusion x 4, GI: soft, NTTP, ND : no SPT, no CVAT, putnam catheter not present MSK: no pitting edema, no clubbing Neuro: non-focal, moving all extremities Psych: cooperative, euthymic mood - Labs CBC & Chem 7: 12/09/21 05:42 12/09/21 05:42 Labs: Abnormal Lab Results - Last 24 Hours (Table) 12/09/21 12/09/21 Range/Units 05:42 05:42 WBC 3.3 L (3.8-10.6) k/uL RBC 2.66 L (3.80-5.40) m/uL Hgb 9.0 L (11.4-16.0) gm/dL Hct 26.6 L (34.0-46.0) % RDW 17.8 H (11.5-15.5) % Plt Count 87 L (150-450) k/uL Lymphocytes # 0.1 L (1.0-4.8) k/uL Sodium 146 H (135-145) mmol/L Chloride 111 H (96-109) mmol/L Carbon Dioxide 31.8 H (20.0-27.5) mmol/L Anion Gap 3.20 L (10.00-18.00) mmol/L Glucose 115 H (70-110) mg/dL Calcium 8.5 L (8.7-10.3) mg/dL ALT 48 H (8-44) U/L Total Protein 5.0 L (6.2-8.2) g/dL Albumin 3.4 L (3.8-4.9) g/dL Assessment and Plan Assessment: AML Chemo per oncology service Paroxysmal atrial fibrillation, Depression GERD/Reflux Osteoarthritis (OA) All stable resume meds Disposition: home Anticipated discharge: after chemo is complete
--- NOTE | 2021-12-09 13:54 | P.DS ---
Providers Date of admission: 12/04/21 09:05 Expected date of discharge: 12/09/21 Attending physician: Enedelia Kelley Consults: 12/04/21 09:54 Consult Physician Routine Consulting Provider: Phuong Finley Consult Reason/Comments: medical management Do you want consulting provider notified?: Yes Primary care physician: Pablito Jann - Discharge Diagnosis(es) (1) AML (acute myeloid leukemia) Current Visit: Yes Status: Chronic Priority: High Hospital Course: Consolidation Number 3 She also receives emergency use high risk monoclonal prevention evushield prior to Assessment: Alert and oriented NAD No acute complaints CBC stable Patient Condition at Discharge: Fair Plan - Discharge Summary Discharge Rx Participant: No New Discharge Prescriptions: New Levofloxacin [Levaquin] 500 mg PO DAILY 1 Days #21 tab Nystatin 100,000 Unit/ml Susp [Mycostatin Oral Susp] 400,000 unit PO QID PRN #200 ml PRN Reason: thrush Continue PARoxetine [Paxil] 10 mg PO DAILY Metoprolol Tartrate [Lopressor] 25 mg PO BID Acetaminophen Tab [Tylenol] 650 mg PO Q6HR PRN tab PRN Reason: Fever And/ Or Pain prednisoLONE ACETATE 1% OPHTH [Pred Forte 1%] 1 drops BOTH EYES QID PRN PRN Reason: w/chemo only Acyclovir 400 mg PO BID #60 tablet Changed Nystatin 100,000 Unit/ml Susp [Mycostatin Oral Susp] 4 ml PO QID #320 ml No Action Midostaurin [Rydapt] 25 mg PO DIRECTED PRN PRN Reason: after round of chemo only Discharge Medication List PARoxetine [Paxil] 10 mg PO DAILY 12/17/18 [History] Metoprolol Tartrate [Lopressor] 25 mg PO BID 10/13/21 [History] Midostaurin [Rydapt] 25 mg PO DIRECTED PRN 10/13/21 [History] Acetaminophen Tab [Tylenol] 650 mg PO Q6HR PRN tab 10/28/21 [Rx] prednisoLONE ACETATE 1% OPHTH [Pred Forte 1%] 1 drops BOTH EYES QID PRN 11/29/21 [History] Acyclovir 400 mg PO BID #60 tablet 12/06/21 [Rx] Levofloxacin [Levaquin] 500 mg PO DAILY 1 Days #21 tab 12/06/21 [Rx] Nystatin 100,000 Unit/ml Susp [Mycostatin Oral Susp] 4 ml PO QID #320 ml 12/06/21 [Rx] Nystatin 100,000 Unit/ml Susp [Mycostatin Oral Susp] 400,000 unit PO QID PRN #200 ml 12/08/21 [Rx] Follow up Appointment(s)/Referral(s): Enedelia Kelley MD [STAFF PHYSICIAN] - 12/11/21 9:30 am Patient Instructions/Handouts: Acyclovir (By mouth), Nystatin (By mouth), Prednisolone (Into the eye), Levofloxacin (By mouth), Acute Myeloid Leukemia (DC), Fall Prevention (DC), Pancytopenia (DC) Activity/Diet/Wound Care/Special Instructions: Pred forte eye drop taper-1 drop each eye three times a day for 3 days, twice a day for 3 days then daily until bottle completed Activity as tolerated Diet as tolerated Rx sent to [facility] three times a week at Dr. Kelley ofc Discharge Disposition: HOME SELF-CARE
== END 2021-12-09 14:10 | disposition home or self-care (01) | DRG 838 ==
LOC: 5NMEDONC 09:05
PROVIDERS: ADMIT Internal Medicine Hematology & Oncology; ATTEND Internal Medicine Hematology & Oncology
PROC: XW043B3 Introduction of Cytarabine and Daunorubicin Liposome Antineoplastic into Central Vein, Percutaneous Approach, New Technology Group 3 (ICD-10-PCS; principal; 2021-12-04)
DX: Z51.11 Encounter for antineoplastic chemotherapy (principal); D61.818 Other pancytopenia; C92.00 Acute myeloblastic leukemia, not having achieved remission; F32.A Depression, unspecified; F41.9 Anxiety disorder, unspecified; H91.90 Unspecified hearing loss, unspecified ear; I10 Essential (primary) hypertension; I48.0 Paroxysmal atrial fibrillation; K21.9 Gastro-esophageal reflux disease without esophagitis; M19.90 Unspecified osteoarthritis, unspecified site; Z20.822 Contact with and (suspected) exposure to COVID-19; Z79.899 Other long term (current) drug therapy; Z82.49 Family history of ischemic heart disease and other diseases of the circulatory system; Z88.1 Allergy status to other antibiotic agents; Z98.890 Other specified postprocedural states; Z87.01 Personal history of pneumonia (recurrent); Z80.9 Family history of malignant neoplasm, unspecified; Z82.0 Family history of epilepsy and other diseases of the nervous system; Z86.010 Personal history of colon polyps; Z87.440 Personal history of urinary (tract) infections
CPT/HCPCS: 80048; 80053; 83735; 84100; 84550; 85025; 87635

== ENCOUNTER 2022-02-05 11:12 | Day surgery (SDC) | payer BC ==
[~2022-02-05 11:12] MED LIST changes: +LACTATED RINGERS 1,000 ML IV SCH; +LIDOCAINE 1% (10MG/ML) FOR IV START INTRADERMA PRN; -ONDANSETRON 4 MG/2 ML VIAL IVP PRN; -SALT AND SODA MOUTHWASH 1,000 ML PO PRN
[2022-02-05 11:34] VITALS: TEMP 97.8
[2022-02-05] MEDS ORDERED: PROPOFOL 10 MG/ML 20 ML VIAL IV ONE (11:51)
[2022-02-05] MEDS ORDERED: LIDOCAINE 1% INJ 10MG/ML (20 ML MDV) ONE (11:51)
[2022-02-05 12:42] LABS: Anisocytosis Slight; Basophils % (A) 0 %; Eosinophils # (A) 0.1 k/uL (0-0.7); Eosinophils % (A) 3 %; HCT 38.4 % (34.0-46.0); Lymphocytes # (A) 0.4 k/uL (1.0-4.8); Lymphocytes % (A) 10 %; MCH 34.8 pg (25.0-35.0); MCHC 34.1 g/dL (31.0-37.0); MCV 102.3 fL (80.0-100.0); Macrocytosis Moderate; Mean Platelet Volume 8.4; Monocytes # (A) 0.4 k/uL (0-1.0); Monocytes % (A) 11 %; Neutrophils # (A) 2.9 k/uL (1.3-7.7); Neutrophils % (A) 73 %; RBC 3.76 m/uL (3.80-5.40); RDW 17.5 % (11.5-15.5)
[2022-02-05 12:43] VITALS: RESP 16
[2022-02-05 12:56] LABS: HGB 13.1 gm/dL (11.4-16.0); Platelet Count 171 k/uL (150-450)
[2022-02-05 13:03] VITALS: BP 113/72; PULSE 75
--- NOTE | 2022-02-05 15:32 | OP ---
OPERATIVE REPORT DATE OF SERVICE: 02/05/2022 PROCEDURE: Bone marrow aspirate and biopsy. INDICATION: AML, status post induction and consolidation treatment to assess treatment response. PROCEDURE DESCRIPTION: After obtaining consent from the patient, the procedure was performed in the endoscopy suite under general anesthesia performed by the anesthesia team. The patient was put in the left lateral decubital position. The right posterior superior iliac crest was localized. The skin was cleansed with ChloraPrep. All sterile procedures were followed. Two mL of 2% xylocaine was used for local anesthetic. Monoject needle was inserted. About 15 mL aspirate and 2 cm core biopsy was obtained without any difficulties. Pressure was applied afterwards. There was negligible blood loss. Patient tolerated the procedure very well without any immediate complications. MMODL / IJN: [id number] /
== END 2022-02-05 13:07 | disposition home or self-care (01) ==
LOC: OR 11:12
PROVIDERS: ATTEND Internal Medicine Hematology & Oncology
DX: D72.810 Lymphocytopenia (principal); C92.A1 Acute myeloid leukemia with multilineage dysplasia, in remission; Z98.890 Other specified postprocedural states; Z80.0 Family history of malignant neoplasm of digestive organs; I48.91 Unspecified atrial fibrillation; K21.9 Gastro-esophageal reflux disease without esophagitis; F32.A Depression, unspecified; Z86.19 Personal history of other infectious and parasitic diseases; Z79.899 Other long term (current) drug therapy; Z88.1 Allergy status to other antibiotic agents
CPT/HCPCS: 85025; 85045; 38222; J2001; J2704

== ENCOUNTER → 2022-02-26 | Outpatient (CLI) | payer BC ==
[~2022-02-26] MED LIST changes: -LACTATED RINGERS 1,000 ML IV SCH; -LIDOCAINE 1% (10MG/ML) FOR IV START INTRADERMA PRN; +TIXAGEVIMAB/CILGAVIMAB (EUA) 300 MG/3 ML COMBO.PKG IM NR
[2022-02-26 11:01] VITALS: RESP 16; TEMP 98.5
[2022-02-26 11:59] VITALS: BP 120/82; PULSE 67
== END ==
LOC: PROCWHC3 10:46
DX: C92.A1 Acute myeloid leukemia with multilineage dysplasia, in remission (principal); Z71.3 Dietary counseling and surveillance; Z88.1 Allergy status to other antibiotic agents; Z68.32 Body mass index [BMI] 32.0-32.9, adult
CPT/HCPCS: 96372; Q0220

== ENCOUNTER → 2022-09-12 | Outpatient (CLI) | payer BC ==
--- NOTE | 2022-09-12 12:57 | XR ---
EXAMINATION TYPE: XR knee complete RT DATE OF EXAM: 09/12/2022 COMPARISON: NONE HISTORY: M25.561 R knee pain TECHNIQUE: Frontal, lateral and oblique images of the right knee are obtained. COMPARISON: None. FINDINGS: No acute fracture or dislocation. Tricompartmental joint space narrowing, sclerosis, and os teophytosis. Trace suprapatellar joint effusion. The overlying soft tissue appears unremarkable. IMPRESSION: 1. No acute fracture or dislocation. 2. Moderate tricompartmental osteoarthritic changes of the knee.
== END | disposition home or self-care (01) ==
LOC: RADXRMAIN 12:30
PROVIDERS: ATTEND Internal Medicine Geriatric Medicine
DX: M17.11 Unilateral primary osteoarthritis, right knee (principal)

== ENCOUNTER → 2022-10-04 | Outpatient (CLI) | payer BC ==
--- NOTE | 2022-10-04 16:05 | BD ---
EXAMINATION TYPE: Axial Bone Density DATE OF EXAM: 10/04/2022 COMPARISON: NONE CLINICAL HISTORY: 62 year old Female. ICD-10 CODE: Z12.31 SCREENING M81.0 AGE-RELATED OSTEOPOROSIS W/ Height: 64 Weight: 213.5 FRAX RISK QUESTIONS: Alcohol (3 or more units per day): no Family History (Parent hip fracture): no Glucocorticoids (More than 3mos): no (Ex: prednisone, prednisolone, methylprednisolone, dexamethasone, and hydrocortisone). History of Fracture in Adulthood: no Secondary Osteoporosis: 1. Type 1 Diabetes: no 2. Hyperthyroidism: no 3. Menopause before 45: no 4. Malnutrition: no 5. Chronic liver disease: no Rheumatoid Arthritis: no Current Tobacco Use: no RISK FACTORS HISTORY OF: Surgery to Spine/Hip(right/left)/Wrist (right/left): no Family History of Osteoporosis: yes Active: yes Diet low in dairy products/other sources of calcium: no Postmenopausal woman: yes Lost more than 2 inches in height since high school: no MEDICATIONS: Additional History: remission from leukemia EXAM MEASUREMENTS: Bone mineral densitometry was performed using the [employer] Live System. Bone mineral density as measured about the Lumbar spine is: ----- L1-L4(G/cm2): 0.912 T Score Values are as follows: ----- L1: -1.7 ----- L2: -2.3 ----- L3: -2.1 ----- L4: -2.8 ----- L1-L4: -2.2 Bone mineral density has: decreased -8.0 % since study of: 12.07.2019 Bone mineral density about the R hip (g/cm2): 0.835 Bone mineral density about the L hip (g/cm2): 0.745 T Score values are as follows: -----R Neck: -1.5 -----L Neck: -2.1 -----R Total: -0.4 -----L Total: -0.9 Bone mineral density has: decreased -9.1 % since study of: 12.07.2019 FRAX%s: The graph provided illustrates a chance for a major osteoporotic fx and a chance for the hips probability for fx in 10 years time. IMPRESSION: Osteopenia (T Score between -2.5 and -1). There is slightly increased risk of fracture and the patient may be considered for treatment. Re-Screen 2-5 years. NOTE: T-SCORE=SD OF THE YOUNG ADULT MEAN.
--- NOTE | 2022-10-05 07:46 | MM ---
Reason for Exam: Screening (asymptomatic). Last mammogram was performed 2 year(s) and 10 month(s) ago. Patient History: Menarche at age 13. First Full-Term at age 32. Late child-bearing (after 30). Postmenopausal. 2002, Cyst Aspiration on the Right side. 1999, Cyst Aspiration on the Left side. 1989, Benign Excisional Biopsy on the right side. 04/16/2016, Benign Core Biopsy on the right side. 04/16/2016, Benign Core Biopsy on the right side. 10/21/2002, Ultrasound-Guided Cyst Aspiration on the Right side. Risk Values: Jennifer 5 year model risk: 3.1%. NCI Lifetime model risk: 14.2%. Prior Study Comparison: 08/21/2018 Bilateral Screening Mammogram, [facility]. 12/07/2019 Bilateral Screening Mammogram, [facility]. 12/18/2019 Left Diagnostic Mammogram, [facility]. Tissue Density: There are scattered fibroglandular densities. Findings: Analyzed By CAD. There is no suspicious group of microcalcifications or new suspicious mass in either breast. Overall Assessment: Benign, BI-RAD 2 Management: Screening Mammogram of both breasts in 1 year. A clinical breast exam by your physician is recommended on an annual basis and results should be correlated with mammographic findings. Electronically signed and approved by: James wSann M.D. Radiologis
== END | disposition home or self-care (01) ==
LOC: RADBDWWP 15:09
PROVIDERS: ATTEND Internal Medicine Geriatric Medicine
DX: Z12.31 Encounter for screening mammogram for malignant neoplasm of breast (principal); M81.0 Age-related osteoporosis without current pathological fracture; Z78.0 Asymptomatic menopausal state; Z98.890 Other specified postprocedural states
CPT/HCPCS: 77063; 77067; 77080

== ENCOUNTER → 2023-02-07 | Outpatient (CLI) | payer BC ==
--- NOTE | 2023-02-07 09:06 | US ---
EXAMINATION TYPE: US abdomen complete DATE OF EXAM: 02/07/2023 COMPARISON: NONE CLINICAL HISTORY: R74.01 Elevation of levels of liver transaminase levels. TECHNIQUE: Multiple sonographic images of the abdomen are obtained. FINDINGS: EXAM MEASUREMENTS: Liver Length: 16.8 cm Gallbladder Wall: 0.18 cm CBD: 0.27 cm Spleen: 10.4 cm Right Kidney: 9.6 x 3.7 x 3.6 cm Left Kidney: 10.8 x 4.5 x 4.5 cm Pancreas: Tail obscured by overlying bowel gas Liver: Enlarged. Increased attenuation, decreased visualization of vessels suggestive of fatty infil trate Gallbladder: Mobile shadowing echogenic foci, possible multiple tiny gallstones. Evidence for sonographic Daniels's sign: No CBD: wnl Spleen: wnl Right Kidney: Limited due to liver pathology, appears unremarkable. Left Kidney: wnl Upper IVC: wnl Abd Aorta: wnl The liver is homogenous with increased echotexture. The intrahepatic portion of the IVC and proximal abdominal aorta are within normal limits. Common bile duct is unremarkable. The visualized portion s of the pancreas are homogenous. The spleen is unremarkable. Kidneys are symmetric and free of hyd ronephrosis. No renal lesions are seen. IMPRESSION: 1. Hepatic steatosis. 2. Cholelithiasis. 3. No obstructive uropathy.
== END | disposition home or self-care (01) ==
LOC: RADUSWWP 08:16
PROVIDERS: ATTEND Internal Medicine Geriatric Medicine
DX: K76.0 Fatty (change of) liver, not elsewhere classified (principal); K80.20 Calculus of gallbladder without cholecystitis without obstruction; R74.01 Elevation of levels of liver transaminase levels
CPT/HCPCS: 76700

== ENCOUNTER → 2023-12-02 | Outpatient (CLI) | payer BC ==
--- NOTE | 2023-12-02 20:58 | MM ---
Reason for Exam: Screening (asymptomatic). Last mammogram was performed 1 year(s) and 2 month(s) ago. Patient History: Menarche at age 13. First Full-Term at age 32. Late child-bearing (after 30). Postmenopausal. 2002, Cyst Aspiration on the Right side. 1999, Cyst Aspiration on the Left side. 1989, Benign Excisional Biopsy on the right side. 04/16/2016, Benign Core Biopsy on the right side. 04/16/2016, Benign Core Biopsy on the right side. 10/21/2002, Ultrasound-Guided Cyst Aspiration on the Right side. Risk Values: Jennifer 5 year model risk: 3.2%. NCI Lifetime model risk: 13.8%. Prior Study Comparison: 12/07/2019 Bilateral Screening Mammogram, [facility]. 12/18/2019 Left Diagnostic Mammogram, [facility]. 10/04/2022 Bilateral MG 3D screening mammo w/cad, [facility]. Tissue Density: There are scattered fibroglandular densities. Findings: Analyzed By CAD. Heart appears symmetrical and stable. Coarse calcifications within the left breast. Core markers are present bilaterally. Benign spherical calcification present bilaterally. Chronic nodularity is present on the left. No suspicious groups of microcalcifications, spiculated or lobular masses, architectural distortion or other secondary signs of malignancy are mammographically apparent. Overall Assessment: Benign, BI-RAD 2 Management: Screening Mammogram of both breasts in 1 year. A negative mammogram report should not preclude additional follow up of suspicious palpable abnormalities. Patient should continue monthly self breast exam. A clinical breast exam by your physician is recommended on an annual basis and results should be correlated with mammographic findings. Electronically signed and approved by: Alli Dawson D.O. Radiologis
== END | disposition home or self-care (01) ==
LOC: RADMAMWWP 07:56
PROVIDERS: ATTEND Internal Medicine Geriatric Medicine
DX: Z12.31 Encounter for screening mammogram for malignant neoplasm of breast (principal); Z78.0 Asymptomatic menopausal state
CPT/HCPCS: 77063; 77067

== ENCOUNTER → 2025-03-22 | Outpatient (CLI) | payer BC ==
--- NOTE | 2025-03-22 09:01 | MM ---
Reason for Exam: Screening (asymptomatic). Last mammogram was performed 1 year(s) and 3 month(s) ago. Patient History: Menarche at age 13. First Full-Term at age 32. Late child-bearing (after 30). Postmenopausal. 2002, Cyst Aspiration on the Right side. 1999, Cyst Aspiration on the Left side. 1989, Benign Excisional Biopsy on the right side. 04/16/2016, Benign Core Biopsy on the right side. 04/16/2016, Benign Core Biopsy on the right side. 10/21/2002, Ultrasound-Guided Cyst Aspiration on the Right side. Risk Values: Jennifer 5 year model risk: 3.3%. NCI Lifetime model risk: 13.0%. Prior Study Comparison: 12/18/2019 Left Diagnostic Mammogram, [facility]. 10/04/2022 Bilateral MG 3D screening mammo w/cad, [facility]. 12/02/2023 Bilateral MG 3D screening mammo w/cad, [facility]. Tissue Density: There are scattered areas of fibroglandular density. Findings: Analyzed By CAD. There are 2 benign-appearing biopsy clips in the right breast redemonstrated. There are a few scattered benign-appearing rounded dystrophic calcifications bilaterally redemonstrated. Small circumscribed masses bilaterally are again seen. Benign-appearing bilateral axillary lymph nodes are redemonstrated. There is no suspicious group of microcalcifications or new suspicious mass in either breast. Overall Assessment: Benign, BI-RAD 2 Management: Screening Mammogram of both breasts in 1 year. . Patient should continue monthly self-breast exams. A clinical breast exam by your physician is recommended on an annual basis. This exam should not preclude additional follow-up of suspicious palpable abnormalities. Note on Jennifer scores and lifetime risk: 1. A Jennifer score greater than 3% is considered moderate risk. If this is the case, consider specialist referral to assess eligibility for a risk reducing agent. 2. If overall lifetime risk for the development of breast cancer is 20% or higher, the patient may qualify for future screening with alternating mammogram and breast MRI. [facility], , 03/22/2025 8:57 AM. Electronically signed and approved by: Martín Wright M.D.
== END | disposition home or self-care (01) ==
LOC: RADMAMWWP 07:33
PROVIDERS: ATTEND Internal Medicine Geriatric Medicine
DX: Z12.31 Encounter for screening mammogram for malignant neoplasm of breast (principal); R92.323 Mammographic fibroglandular density, bilateral breasts; Z78.0 Asymptomatic menopausal state
CPT/HCPCS: 77063; 77067